=== PATIENT | female | born 1940 | race Asian ===

== ENCOUNTER 2016-12-05 04:39 | Inpatient (IN) | payer OTHER ==
[~2016-12-05] VITALS: Ht 157.5 cm; Wt 73.0 kg
[~2016-12-05 04:39] MED LIST: ASPI-664 PO; ATOR40TA68 PO; BRIM15DR2 BOTH EYES; CHOL100062 PO; HYD25 PO; LEVO500T72 PO; LISI-526 PO; METF500T4 PO; OCUVITE PO; SAXA5TAB2 PO; VITA1CAP38 PO
[2016-12-05 05:21] LABS: ADD SCAN DIFF NO
[2016-12-05] MEDS ORDERED: ENALAPRILAT 1.25 MG INJ IV ONE (05:30)
[2016-12-05] MEDS ORDERED: ASPIRIN 325 MG TAB PO ONE (05:30)
[2016-12-05 05:31] LABS: BASOPHILS % 0.7 % (0.0-2.0); EOSINOPHILS # 0.1 10^3/ul (0.0-0.5); EOSINOPHILS % 2.2 % (0.0-7.0); HEMATOCRIT 35.9 % (37.0-47.0); LYMPHOCYTES # 1.3 10^3/ul (0.8-2.9); LYMPHOCYTES % 22.1 % (15.0-51.0); MEAN CORPUSCULAR HEMOGLOBIN 31.3 pg (29.0-33.0); MEAN CORPUSCULAR HGB CONC 33.4 g/dl (32.0-37.0); MEAN CORPUSCULAR VOLUME 93.7 fl (82.0-101.0); MEAN PLATELET VOLUME 11.4 fl (7.4-10.4); MONOCYTE # 0.3 10^3/ul (0.3-0.9); MONOCYTES % 4.6 % (0.0-11.0); NEUTROPHIL # 4.1 10^3/ul (1.6-7.5); NEUTROPHILS % 69.7 % (39.0-77.0); PLATELET COUNT 240 10^3/UL (140-415); RED BLOOD COUNT 3.83 10^6/ul (4.20-5.40); RED CELL DISTRIBUTION WIDTH 13.8 % (11.5-14.5); WHITE BLOOD COUNT 5.9 10^3/ul (4.8-10.8)
[2016-12-05 05:37] LABS: ALBUMIN 4.2 g/dl (3.3-4.9)
[2016-12-05 05:38] LABS: POTASSIUM 3.3 mmol/L (3.5-5.1)
[2016-12-05 05:40] LABS: ALBUMIN/GLOBULIN RATIO 1.31; BILIRUBIN,INDIRECT 0.4 mg/dl (0-1.1); BILIRUBIN,TOTAL 0.4 mg/dl (0.2-1.3); CREATININE 1.13 mg/dl (0.44-1.00); TOTAL PROTEIN 7.4 g/dl (6.1-8.1)
[2016-12-05 05:41] LABS: CALCIUM 8.6 mg/dl (8.4-10.2)
[2016-12-05] MEDS ORDERED: ONDANSETRON 4 MG INJ IV ONE (05:42)
[2016-12-05] MEDS ORDERED: ONDANSETRON 4 MG INJ ONE (05:45)
[2016-12-05 05:53] LABS: TROPONIN-I 0.056 ng/ml (0.00-0.12)
[2016-12-05] MEDS ORDERED: ATOR20TA38 PO (05:55)
[2016-12-05] MEDS ORDERED: FLUT1BLS INHALATION (05:56)
[2016-12-05] MEDS ORDERED: ALBUTEROL 0.083% (NEB) 2.5 MG/3 ML AMP HHN STA (05:59)
[2016-12-05] MEDS ORDERED: IPRATROPIUM (NEB) 0.5 MG/2.5 ML AMP HHN ONE (06:00)
[2016-12-05] MEDS ORDERED: BRIM15DR2 BOTH EYES (06:00)
--- NOTE | 2016-12-05 06:00 | RADRPT ---
PROCEDURE: Chest. CLINICAL INDICATION: Chest pain. TECHNIQUE: Single frontal view of the chest was obtained. COMPARISON: 01/11/2015. FINDINGS: The cardiac silhouette is enlarged. The aortic arch is calcified. There is congestive failure. Th ere is no pleural effusion. There is no pneumothorax. IMPRESSION: Moderate cardiomegaly and congestive failure. Aortic atherosclerosis. .Cyril Rivera MD, Date Time Electronically viewed and signed by .Cyril Rivera MD, on 12/05/2016 06:00 .T/
[2016-12-05] MEDS ORDERED: TEM15CR5 TOP (06:02)
[2016-12-05] MEDS ORDERED: AMLO-147 PO (06:04)
[2016-12-05 06:07] VITALS: TEMP 98.6
[2016-12-05 06:15] LABS: Allen Test ACCEPTAB; Arterial Base Excess -4.5 mmol/L (-3.0-3); Arterial COHb 0.3 % (0.0-3.0); Arterial Fraction of Oxyhgb 98.9 % (93.0-99.0); Arterial HCO3 21.8 mmol/L (22.0-26.0); Arterial MetHb 0.3 % (0.0-1.5); Arterial Total Hemglobin 13.7 g/dl (12.0-18.0); Blood Gas IEPAP 15/5; Blood Gas PS 10; MODE MASK - BIPAP
[2016-12-05] MEDS ORDERED: FUROSEMIDE 40 MG INJ IV ONE (07:00)
[2016-12-05] MEDS ORDERED: NITROGLYCERIN (SL) 0.4 MG TAB SL ONE (07:00)
[2016-12-05] MEDS ORDERED: ACETAMINOPHEN 325 MG TAB PO PRN ×2 (08:00→10:30)
[2016-12-05] MEDS ORDERED: ONDANSETRON 4 MG INJ IV PRN ×2 (08:00→10:30)
[2016-12-05] MEDS ORDERED: POTASSIUM CHLORIDE (SR) 20 MEQ TAB PO STA (08:24)
--- NOTE | 2016-12-05 08:26 | ERA ---
ER Documentation Chief Complaint Date/Time DATE: 12/05/16 TIME: 08:15 Chief Complaint Shortness of breath with htn, hx-chf HPI 76-year-old male is brought in for increasing shortness of breath for the last 3 days getting much worse this morning. Denies chest pain. States that she feels very weak and like she cannot breathe. According to her EMR she does have a history of congestive heart failure although she and her daughter claim to be unaware of this. She has not had any cough or fevers recently ROS All systems reviewed and are negative except as per history of present illness. Medications Home Meds Active Scripts Levofloxacin* (Levaquin*) 500 Mg Tablet, 500 MG PO DAILY for 7 Days, TAB Prov:MODESTO PECK MD 01/12/15 Reported Medications Amlodipine Besylate* (Amlodipine Besylate*) 10 Mg Tablet, 10 MG PO DAILY, #30 TAB 12/05/16 Clobetasol Propionate* (Temovate*) 0.05%-15gm Cream..g., 1 APPLIC TOP BID, #1 TUB 12/05/16 Brimonidine Tartrate* (Alphagan P*) 0.1%-15 Ml Opht Drops, 1 DROP BOTH EYES BID , #1 EA INSTILL 1 DROP INTO BOTH EYES TWICE A DAY DIRECTED 12/05/16 Fluticasone/Vilanterol (Breo Ellipta 200-25 Mcg INH) 1 Each Blst.w.dev, 1 PUFF INHALATION DAILY, #1 INHALER 12/05/16 Atorvastatin Calcium* (Atorvastatin Calcium*) 20 Mg Tablet, 20 MG PO QHS, #30 TAB 12/05/16 Cholecalciferol* (Vitamin D3*) 1,000 Unit Tablet, 1000 UNIT PO BID, TAB 01/11/15 Beta Carotene (A) W-C & E/Min* (Ocuvite*) 1 Tab Tab, 1 TAB PO DAILY, TAB 05/06/14 Vitamin B Complex* (Vitamin B Complex*) 1 Cap Capsule, 1 CAP PO DAILY, CAP 05/06/14 Aspirin* (Aspirin* EC) 81 Mg Tablet.dr, 81 MG PO DAILY, TAB 05/06/14 Saxagliptin Hcl* (Onglyza*) 5 Mg Tablet, 5 MG PO DAILY, TAB 05/06/14 Lisinopril* (Zestril*) 40 Mg Tablet, 40 MG PO DAILY, TAB 05/06/14 Hydrochlorothiazide* (Hydrochlorothiazide*) 25 Mg Tab, 25 MG PO DAILY, TAB 05/06/14 Metformin Hcl* (Metformin Hcl*) 500 Mg Tablet, 1000 MG PO BID, TAB 05/06/14 Brimonidine Tartrate* (Alphagan P*) 0.1%-15 Ml Opht Drops, 1 DROP BOTH EYES BID , EA 05/06/14 Discontinued Reported Medications Atorvastatin* (Atorvastatin*) 40 Mg Tablet, 40 MG PO HS, TAB 05/06/14 Allergies Allergies: Coded Allergies: No Known Allergy (Unverified , 12/05/16) PMhx/Soc History of Surgery: Yes (HYSTELECTOMY) Anesthesia Reaction: No Hx Neurological Disorder: No Hx Respiratory Disorders: No Hx Cardiac Disorders: Yes (HTN) Hx Psychiatric Problems: No Hx Miscellaneous Medical Probl: No Hx Alcohol Use: No Hx Substance Use: No Hx Tobacco Use: No Smoking Status: Never smoker Physical Exam Vitals Vital Signs Date Time Temp Pulse Resp B/P Pulse Ox O2 Delivery O2 Flow Rate FiO2 12/05/16 07:50 72 20 143/64 100 BIPAP 12/05/16 06:22 80 100 60 12/05/16 06:07 98.6 108 14 155/85 92 Room Air 12/05/16 06:03 Non Rebreather 15.0 12/05/16 05:14 98.6 86 18 201/95 92 Room Air 12/05/16 04:47 98.1 60 20 219/101 91 Physical Exam Const: [] Mild distress, appears uncomfortable Head: Atraumatic Eyes: Normal Conjunctiva ENT: Normal External Ears, Nose and Mouth. Neck: Full range of motion..~ No meningismus. Resp: Bilateral decreased breath sounds with mild tachypnea Cardio: Regular rate and rhythm, no murmurs Abd: Soft, non tender, non distended. Normal bowel sounds Skin: No petechiae or rashes Back: No midline or flank tenderness Ext: No cyanosis, mild pedal edema bilaterally Neur: Awake and alert and oriented 3, no focal deficits Psych: Normal Mood and Affect Result Diagram: 12/05/16 0506 12/05/16 0506 Results 24 hrs Laboratory Tests Test 12/05/16 05:06 12/05/16 05:58 White Blood Count 5.910^3/ul Red Blood Count 3.8310^6/ul Hemoglobin 12.0g/dl Hematocrit 35.9% Mean Corpuscular Volume 93.7fl Mean Corpuscular Hemoglobin 31.3pg Mean Corpuscular Hemoglobin Concent 33.4g/dl Red Cell Distribution Width 13.8% Platelet Count 33838^3/UL Mean Platelet Volume 11.4fl Neutrophils % 69.7% Lymphocytes % 22.1% Monocytes % 4.6% Eosinophils % 2.2% Basophils % 0.7% Nucleated Red Blood Cells % 0.0/100WBC Neutrophils # 4.110^3/ul Lymphocytes # 1.310^3/ul Monocytes # 0.310^3/ul Eosinophils # 0.110^3/ul Basophils # 0.010^3/ul Nucleated Red Blood Cells # 0.010^3/ul Sodium Level 140mmol/L Potassium Level 3.3mmol/L Chloride Level 104mmol/L Carbon Dioxide Level 22mmol/L Anion Gap 17 Blood Urea Nitrogen 18mg/dl Creatinine 1.13mg/dl Glucose Level 222mg/dl Calcium Level 8.6mg/dl Total Bilirubin 0.4mg/dl Direct Bilirubin 0.00mg/dl Indirect Bilirubin 0.4mg/dl Aspartate Amino Transf (AST/SGOT) 23IU/L Alanine Aminotransferase (ALT/SGPT) 26IU/L Alkaline Phosphatase 79IU/L Troponin I 0.056ng/ml B-Type Natriuretic Peptide 6190PG/ML Total Protein 7.4g/dl Albumin 4.2g/dl Globulin 3.20g/dl Albumin/Globulin Ratio 1.31 Lipase 141U/L Blood Gas Specimen Source Blood arterial Arterial Blood Date Drawn 12/05/2016 6:00:43 AM Arterial Blood pH (Temp corrected) 7.309 Arterial Blood pCO2 (Temp correct) 44.3mmhg Arterial Blood pO2 (Temp corrected) 450.7mmHG Arterial Blood HCO3 21.8mmol/L Arterial Blood Base Excess -4.5mmol/L Arterial Blood Oxygen Saturation 99.5mmHG Alonso Test ACCEPTAB Arterial Blood Gas Puncture Site Left Radial Arterial Blood Carboxyhemoglobin 0.3% Arterial Blood Methemoglobin 0.3% Blood Gas A-a O2 Differential 218.0mmHg Oxyhemoglobin Percent 98.9% Total Hemoglobin 13.7g/dl Blood Gas Temperature 37.0C Blood Gas Respiration Rate 16.0 Blood Gas Actual Respiration Rate 34 Blood Gas Modality MASK - BIPAP FiO2 100.0% Blood Gas Pressure Support 10 Blood Gas IPAP/EPAP Ratio 15/5 Blood Gas Notified Whom UP Blood Gas Notified Time 12/05/2016 6:15:29 AM Current Medications Medications (Trade) Dose Ordered Sig/Alicia Route PRN Reason Start Time Stop Time Status Last Admin Dose Admin Aspirin (Aspirin) 325 mg ONCE ONCE PO 12/05/16 05:30 12/05/16 05:31 DC 12/05/16 05:20 Enalaprilat (Vasotec Iv) 1.25 mg ONCE ONCE IV 12/05/16 05:30 12/05/16 05:31 DC 12/05/16 05:20 Ondansetron HCl (Zofran Inj) 4 mg ONCE ONCE IV 12/05/16 05:42 12/05/16 05:50 DC 12/05/16 06:01 Ondansetron HCl (Zofran Inj) 4 mg STK-MED ONCE .ROUTE 12/05/16 05:45 12/05/16 05:46 DC Albuterol (Proventil 0.083% (Neb)) 5 mg ONCE STAT HHN 12/05/16 05:59 12/05/16 06:00 DC 12/05/16 06:25 Ipratropium [place] (Atrovent 0.02% (Neb)) 0.5 mg ONCE ONCE HHN 12/05/16 06:00 12/05/16 06:01 DC 12/05/16 06:25 Furosemide (Lasix) 40 mg ONCE ONCE IV 12/05/16 07:00 12/05/16 07:01 DC 12/05/16 06:44 Nitroglycerin (Nitroglycerin (Sl Tab) 0.4 Mg) 1 tab ONCE ONCE SL 12/05/16 07:00 12/05/16 07:01 DC 12/05/16 06:53 Ondansetron HCl (Zofran Inj) 4 mg ER BRIDGE PRN IV NAUSEA AND/OR VOMITING 12/05/16 08:00 12/06/16 07:59 Acetaminophen (Tylenol Tab) 650 mg ER BRIDGE PRN PO MILD PAIN/FEVER 12/05/16 08:00 12/06/16 07:59 Procedures/MDM Acute decompensated congestive heart failure likely with flash pulmonary edema. Patient decompensated in the emergency room compared to her initial presentation. She began saturating in the high 70s. Her mechatronics engineer she also began to throw multiple PVCs. I ordered BiPAP as well as an albuterol Atrovent breathing treatment. Chest x-ray returned with pulmonary edema and she also had an elevated BNP. She was initially given Vasotec which did help lower the blood pressure. At that point I gave him another nitroglycerin to help lower her blood pressure as well as return some fluid volume to the bloodstream. Is also given 40 mg of Lasix. She improved greatly while on BiPAP in conjunction with the medications. Blood pressure also remained stable after the medications. Spoke with Dr. Tate who will be admitting the patient to telemetry as I no longer feel that she needs intensive care. EKG interpretation #1: Normal sinus rhythm rate of 90, normal axis, T-wave flattening/inversions in anterolateral leads, normal intervals EKG interpretation #2: Normal sinus rhythm rate of 83, normal axis, QT prolongation of 491 QTC, T-wave inversions in anterolateral leads suspicious for ischemia. Single PVC business change manager interpretation: Initial normal sinus rhythm followed by sinus rhythm with multiple and frequent PVCs followed by normal sinus rhythm once again. Chest x-ray interpretation by myself: Diffuse pulmonary edema, no obvious infiltrates, no pneumothorax, no fractures Critical care time 46 minutes: This includes a treatment of hypertensive emergency, flash pulmonary edema with respiratory failure, use of noninvasive positive pressure ventilation, chart review, multiple visits the patient's bedside to reassess status and consider ET intubation, discussion with family and admitting doctor as well as patient. This does not include any billable procedure Departure Diagnosis: Primary Impression: CHF (congestive heart failure) Additional Impressions: Hyperglycemia Renal insufficiency Acute respiratory failure with hypoxia Condition: Jennifer MAJORISABELLE ROBERT December 05, 2016 08:26
[2016-12-05] MEDS ORDERED: BISACODYL (EC) 5 MG TAB PO PRN (10:30)
[2016-12-05] MEDS ORDERED: Discontinue Glyburide, Glipizide, and/or Glimepiride prior to starting Insulin XX ONE (10:30)
[2016-12-05] MEDS ORDERED: BISACODYL 10 MG SUPP PR PRN (10:30)
[2016-12-05] MEDS ORDERED: MAGNESIUM HYDROXIDE 30ML CUP PO PRN (10:30)
[2016-12-05] MEDS ORDERED: DOCUSATE SODIUM 100 MG CAP PO PRN (10:30)
[2016-12-05] MEDS ORDERED: morphine 2 MG INJ IV PRN (10:30)
[2016-12-05] MEDS ORDERED: ZOLPIDEM 5 MG TAB PO PRN (10:30)
[2016-12-05] MEDS: CLOBETASOL 0.05% 15 GM CR TOP SCH ×2 (10:30→21:31)
[2016-12-05] MEDS ORDERED: NACL 0.9% 3 ML SYG IV SCH (10:30)
[2016-12-05] MEDS ORDERED: HYPOGLYCEMIA PROTOCOL when Glucose is <70 mg/dL or symptomatic <90 mg/dL. XX ONE (10:30)
[2016-12-05] MEDS ORDERED: GLUCOSE GEL 15 GRAM TUBE PO PRN ×2 (11:00)
[2016-12-05] MEDS ORDERED: GLUCOSE GEL 15 GRAM TUBE BUCCAL PRN (11:00)
[2016-12-05] MEDS ORDERED: DEXTROSE 50% 50 ML SYRINGE IV PRN ×2 (11:00)
[2016-12-05] MEDS ORDERED: GLUCAGON 1 MG INJ IM PRN (11:00)
[2016-12-05] MEDS: ASPIRIN (EC) 81 MG TAB PO SCH (11:28)
[2016-12-05] MEDS: BRIMONIDINE 0.1% 5 ML OPH BOTH EYES SCH ×2 (11:28→20:13)
[2016-12-05] MEDS: CHOLECALCIFEROL 1,000 UNIT TAB PO SCH ×2 (11:28→23:55)
[2016-12-05] MEDS: BETA CAROTENE/VIT C/E/MIN TAB PO SCH (11:28)
[2016-12-05] MEDS: AMLODIPINE 10 MG TAB PO SCH (11:29)
[2016-12-05] MEDS: LISINOPRIL 20 MG TAB PO SCH (11:29)
[2016-12-05] MEDS: LINAGLIPTIN 5 MG TABLET PO SCH (11:29)
[2016-12-05] MEDS ORDERED: [UNRECOGNIZED DRUG - MIXTURE] XX SCH (11:30)
[2016-12-05] MEDS: INSULIN ASPART [NOVOLOG] 3 ML PEN SC SCH ×3 (12:00→20:23)
--- NOTE | 2016-12-05 12:06 | HP ---
DATE OF ADMISSION: 12/05/2016 CHIEF COMPLAINT: Shortness of breath. REASON FOR ADMISSION: Acute congestive heart failure exacerbation, hypertensive emergency. HISTORY OF PRESENT ILLNESS: This is a 76-year-old female who has a past medical history of hyperten maribel, diabetes mellitus, osteoporosis, history of a previous admission in January 2015. At that time, she was evaluated and had a workup done. As per the patient, she presented to the [facility] emergency room. She was brought in by her daughter with a complaint of shortness of irene th. She was complaining of mild chest discomfort associated with shortness of breath. In the emerg ency room, her chest x-ray shows a cardiomegaly with a mild central vascular congestion. She had ao rtic atherosclerosis, received Lasix 40 mg IV x1. She also had a hypertensive emergency with a syst olic blood pressure of 208/91. In the emergency room, she received multiple antihypertensives and g etting admitted to the telemetry floor for further workup of CHF and also for her blood pressure con trol. At the time of my evaluation, the patient is off BiPAP. She required a BiPAP overnight, currently o ff saturating 94 to 93% on 2 to 3 liters nasal cannula. She is still short of breath, complaining o f nausea associated with shortness of breath but denies any chest pain, headache, dizziness, blurry vision, constipation, diarrhea, dysuria, increased urinary frequency. REVIEW OF SYSTEMS: Positive for shortness of breath, chest pain has been required a BiPAP overnight in the emergency room for respiratory failure. Other review of systems has been obtained and is ne gative except what is mentioned in the history of present illness. PAST MEDICAL HISTORY: Notable for hypertension, hyperlipidemia, osteoporosis, possible diastolic he art failure. Patient had a previous recent echocardiogram done. LABORATORY DATA/DIAGNOSTIC IMAGING: Her EKG in the emergency room shows a normal sinus rhythm. The chest x-ray shows pulmonary congestion. The patient improved with BiPAP in the emergency room, she had elevated BNP of more than 10,000 and currently she is hemodynamically stable to get admitted for telemetry floor. PAST SURGICAL HISTORY: History of hysterectomy. SOCIAL HISTORY: The patient is a former smoker, currently no smoking, alcohol or recreational drug use. FAMILY HISTORY: Positive for diabetes mellitus in the family, otherwise denies any history of coron neyda artery disease, chronic kidney disease or stroke in the family. PHYSICAL EXAMINATION: VITAL SIGNS: The patient had a systolic blood pressure of 219/101 in the emergency room, currently, after getting IV Lasix diuresis and antihypertensives her current vital signs include temperature 98 .6, heart rate 77, respiration 20, blood pressure 152/77, saturation is 100% on a 4 liter nasal re[place]. GENERAL: Awake, alert, moderate distress. HEENT: Normal. Oropharynx clear. NECK: Jugular venous distention up to the mid neck. Neck supple, no lymphadenopathy. LUNGS: Bibasilar crackles present up to the mid lung zones with expiratory wheezing present. Diffu se throughout all lung garcia. HEART: S1, S2, tachycardia, no murmur. ABDOMEN: Soft, morbidly obese, nontender, nondistended. Bowel sounds are present. EXTREMITIES: 1 to 2+ pitting edema, no clubbing, no cyanosis. NEUROLOGICAL: The patient is alert, awake, oriented to time, place and person. No focal deficits. Reflexes are intact. Motor strength 5/5 in all extremities. SKIN: No rash. PSYCHIATRIC: Appropriate affect and mood. LABORATORY DATA/DIAGNOSTIC IMAGING: WBC 5.9, hemoglobin 12, platelet count is 240. Sodium 140, pota ssium 3.3, chloride 104, bicarbonate 22, BUN 18, creatinine 1.1, glucose 222, calcium 8.6. BNP 6190 , troponin x1 negative. ABG shows pH 7.30, pCO2 44, PO2 450, bicarbonate 21. Chest x-ray shows cardiomegaly, pulmonary vascular congestion with aortic atherosclerosis. IMPRESSION: This is a 76-year-old female with: 1. Acute hypoxic respiratory failure requiring a BiPAP in the emergency room secondary to acute con gestive heart failure exacerbation. 2. Acute congestive heart failure exacerbation, acute on chronic, systolic and diastolic. 3. Acute kidney injury on possible chronic kidney disease secondary to cardiorenal syndrome. 4. History of possible chronic kidney disease, unknown stage, secondary to diabetic nephropathy. 5. History of hypertension. 6. History of diabetes mellitus. 7. History of osteoporosis. 8. Hypokalemia, status post replacement in the emergency room. PLAN 1. Admission to the telemetry floor. I will continue the BiPAP as needed for her acute respiratory failure. Lasix 40 mg IV b.i.d. for diuresis. 2. I will start the patient on her home medications ____ Zestril and amlodipine for better blood pressure control. We will use IV hydralazine p.r.n. 3. The patient will get echocardiogram to be read by Dr. Chinchilla to assess her ejection fractions. S he is currently seen in the emergency room, KCl has been replaced. The patient required BiPAP overn ight, but currently she is off the BiPAP, so we will consider her for telemetry admission. She is a complicated patient while being seen in the emergency room. Total time spent in this patient's evaluation making assessment and plan, coming up with communicati on with the emergency room nurse and also with the nursing staff on the floor took more than 90 kaiden marvin. 4. Pepcid for GI prophylaxis and heparin for DVT prophylaxis. Dictated By: RICK ESCAMILLA MD, KP/GRACE Conf#: [id number] DID#: [id number]
[2016-12-05 16:51] VITALS: PULSE 83
[2016-12-05 17:07] VITALS: Ht 157.5 cm; Wt 73.0 kg
--- NOTE | 2016-12-05 17:24 | RADRPT ---
Echocardiogram Report Patient Name: GIANA ROBINS Gender: Female Date: 1940 Study Date: 05-Dec-2016 Reinsurance Analyst: GILL Location: E/R Ref. Physician: RICK ESCAMILLA Quality: Adequate Procedures: Transthoracic echocardiogram with complete 2D, M-Mode, and doppler examination. Indications: Congestive Heart Failure. 2D/M Mode Doppler Measurement Value Normal Ranges Measurement Value Normal Ranges LVIDd 2D 5.7 3.5 - 5.6 cm AV Peak John 1.5 m/sec LVIDs 2D 4.1 2.1 - 4.1 cm AV Peak PG 8.4 mmHg LVPWd 2D 0.8 0.6 - 1.1 cm LVOT Peak John 0.8 m/sec IVSd 2D 0.8 0.6 - 1.1 cm LVOT Peak PG 2.5 mmHg AoR Diam 2D 2.7 2.0 - 3.7 cm MV E Peak John 1.3 m/sec EDV 2D 156.9 cm3 MV A Peak John 0.5 m/sec ESV 2D 70.5 cm3 MV E/A 2.5 LA Dimen 2D 4.0 2.3 - 4.0 cm MV Decel Time 130 msec MV Decel [place] 10 MV E/A 2.5 TR Peak John 2.9 m/sec TR Peak PG 34.4 mmHg RVSP 37.0 mmHg Findings Left Ventricle: Normal left ventricular wall thickness. Mild enlargement of left ventricle cavity. Moderate left ventricular systolic dysfunction. Ejection fraction is visually estimated at 3540 %. Tissue Doppler/Mitral Doppler indices are consistent with pseudonormalization with mildly elevated left atrial pressure (Stage II diastolic dysfunction). Right Ventricle: Normal right ventricular size. Normal right ventricular systolic function. Left Atrium: Upper limit of normal left atrial size. Right Atrium: The right atrium is normal in size. Mitral Valve: Mitral valve leaflets appear mildly thickened. Mild mitral annular calcification. Mild mitral valve regurgitation. Aortic Valve: Normal appearance of the aortic valve. No significant aortic stenosis or insufficiency. Tricuspid Valve: Normal appearance of the tricuspid valve. Estimated peak PA systolic pressure 37 mmHg. There is mild tricuspid regurgitation. Pulmonic Valve: Pulmonic valve not well visualized. There is trace pulmonic regurgitation. Pericardium: Normal pericardium with no significant pericardial effusion. Aorta: Normal aortic root. IVC: Normal size and normal respiratory collapse consistent with normal right atrial pressure. Conclusions 1.Normal left ventricular wall thickness. Mild enlargement of left ventricle cavity. Moderate left ventricular systolic dysfunction. Ejection fraction is visually estimated at 35-40 %. Tissue Doppler/Mitral Doppler indices are consistent with pseudonormalization with mildly elevated left atrial pressure (Stage II diastolic dysfunction). 2.Normal right ventricular size. Normal right ventricular systolic function. 3.Upper limit of normal left atrial size. 4.The right atrium is normal in size. 5.Mild mitral valve regurgitation. 6.Estimated peak PA systolic pressure 37 mmHg. There is mild tricuspid regurgitation. 7.No significant aortic stenosis or insufficiency. 8.Normal pericardium with no significant pericardial effusion. Electronically Signed By: Omega Chinchilla 05-Dec-2016 17:23:35 -0700 Patient Name: GIANA ROBINS Study Date: 05-Dec-2016 [id number]
[2016-12-05] MEDS: FUROSEMIDE 20 MG INJ IV SCH (18:07)
[2016-12-05 18:24] VITALS: PULSE 84
[2016-12-05] MEDS: POTASSIUM CHLORIDE (SR) 20 MEQ TAB PO SCH (20:14)
[2016-12-05 20:15] VITALS: PULSE 87
[2016-12-05] MEDS: HYDROCODONE/APAP (5/325) TAB PO PRN (20:15)
[2016-12-05] MEDS: FAMOTIDINE 20 MG INJ IV SCH (20:16)
[2016-12-05] MEDS: HEPARIN 5,000 UNIT/0.5 ML VIAL SC SCH (20:22)
[2016-12-05 20:30] VITALS: BP 183/81; PULSE 74; RESP 20
[2016-12-05] MEDS ORDERED: ATORVASTATIN 20 MG TAB PO SCH (21:00)
[2016-12-05 23:40] VITALS: BP 124/58; RESP 20
[2016-12-05] MEDS: SALMETEROL/FLUTICASONE 250/50 INHA INH SCH (23:55)
[2016-12-06] VITALS (38 sets, daily range): BP systolic 123–179; BP diastolic 64–104; PULSE 53–90; RESP 16–28
[2016-12-06] MEDS: FUROSEMIDE 20 MG INJ IV SCH ×2 (06:24→18:17)
[2016-12-06 07:18] LABS: ADD SCAN DIFF NO
[2016-12-06 07:28] LABS: BASOPHILS % 0.7 % (0.0-2.0); EOSINOPHILS # 0.1 10^3/ul (0.0-0.5); EOSINOPHILS % 2.6 % (0.0-7.0); HEMOGLOBIN 12.8 g/dl (12.0-16.0); LYMPHOCYTES # 1.2 10^3/ul (0.8-2.9); LYMPHOCYTES % 22.8 % (15.0-51.0); MEAN CORPUSCULAR HEMOGLOBIN 30.5 pg (29.0-33.0); MEAN CORPUSCULAR VOLUME 95.2 fl (82.0-101.0); MEAN PLATELET VOLUME 11.9 fl (7.4-10.4); MONOCYTE # 0.2 10^3/ul (0.3-0.9); MONOCYTES % 4.2 % (0.0-11.0); NEUTROPHIL # 3.8 10^3/ul (1.6-7.5); NEUTROPHILS % 69.3 % (39.0-77.0); PLATELET COUNT 274 10^3/UL (140-415); RED CELL DISTRIBUTION WIDTH 13.7 % (11.5-14.5); WHITE BLOOD COUNT 5.4 10^3/ul (4.8-10.8)
[2016-12-06 07:50] LABS: INR 0.97; PROTIME 12.9 Sec (12.2-14.2)
[2016-12-06 07:51] LABS: PARTIAL THROMBOPLASTIN TIME 33.7 Sec (25.0-35.0)
[2016-12-06 08:08] LABS: ALBUMIN 4.2 g/dl (3.3-4.9); ALBUMIN/GLOBULIN RATIO 1.23; BILIRUBIN,INDIRECT 0.8 mg/dl (0-1.1); BILIRUBIN,TOTAL 0.8 mg/dl (0.2-1.3); CALCIUM 9.1 mg/dl (8.4-10.2); CREATININE 1.53 mg/dl (0.44-1.00); MAGNESIUM 1.8 mg/dl (1.7-2.5); PHOSPHORUS 4.8 mg/dl (2.5-4.9); TOTAL PROTEIN 7.6 g/dl (6.1-8.1)
[2016-12-06] MEDS: INSULIN ASPART [NOVOLOG] 3 ML PEN SC SCH ×4 (08:23→21:00)
[2016-12-06] MEDS: CLOBETASOL 0.05% 15 GM CR TOP SCH ×2 (08:24→21:00)
[2016-12-06] MEDS: BETA CAROTENE/VIT C/E/MIN TAB PO SCH (08:24)
[2016-12-06] MEDS: SALMETEROL/FLUTICASONE 250/50 INHA INH SCH ×2 (08:24→21:16)
[2016-12-06] MEDS: POTASSIUM CHLORIDE (SR) 20 MEQ TAB PO SCH ×2 (08:25→21:00)
[2016-12-06] MEDS: LISINOPRIL 20 MG TAB PO SCH (08:25)
[2016-12-06] MEDS: AMLODIPINE 10 MG TAB PO SCH (08:25)
[2016-12-06] MEDS: LINAGLIPTIN 5 MG TABLET PO SCH (08:25)
[2016-12-06] MEDS: ASPIRIN (EC) 81 MG TAB PO SCH (08:26)
[2016-12-06] MEDS: HEPARIN 5,000 UNIT/0.5 ML VIAL SC SCH (08:31)
[2016-12-06] MEDS: CHOLECALCIFEROL 1,000 UNIT TAB PO SCH ×2 (08:31→21:00)
[2016-12-06] MEDS: BRIMONIDINE 0.1% 5 ML OPH BOTH EYES SCH ×2 (09:00→21:00)
[2016-12-06] MEDS ORDERED: LORAZEPAM 2 MG INJ ONE (09:40)
--- NOTE | 2016-12-06 10:14 | RADRPT ---
PROCEDURE: CT Head without. CLINICAL INDICATION: Code stroke. TECHNIQUE: The study was performed utilizing a multi-slice, multidetector CT scanner. Direct spira l 1 mm axial sections were obtained through the head without the use of intravenous contrast materia l. 1 or more of the following dose reduction techniques were utilized: Automated exposure control, adjustment of the mA and/or kV according to patient's size, iterative reconstruction technique. Co jovi and sagittal reformations were obtained. The images were reviewed on a PACS workstation. RADIATION DOSE: CTDIvol: 44.5 mGyDLP: 720.2 mGy-cm COMPARISON: 05/06/2014 FINDINGS: There is no intracranial hemorrhage, extra-axial fluid collection, mass lesion, midline shift or hyd rocephalus. There is mild prominence of the cerebral sulci, lateral and third ventricles. There is mild to moderate periventricular and subcortical white matter hypodensity. There is mild arteriosc lerotic calcification of the parasellar internal carotid arteries. The davis-white matter differenti ation is preserved. The basal cisterns are patent. The midline structures are intact. The orbits, calvarium and extracranial soft tissues are normal in appearance. The visualized paranasal sinuses, mastoid air cells and middle ear cavities are normally aerated. IMPRESSION: 1. No acute intracranial abnormality. No intracranial hemorrhage, extra-axial fluid collection, ma ss lesion or hydrocephalous. 2. Mild peripheral and central cerebral volume loss. 3. Mild to moderate periventricular and subcortical white matter hypodensity, likely related to chr onic microangiopathic changes. 4. No CT evidence of infarct at this time. If clinical concern for infarct, MRI is recommended for further evaluation. The above findings were discussed with Patient's Nurse Lorena by telephone on 12/06/2016 10:11:44 AM. RPTAT: DD .Jorge Luis Hooper MD, Date Time Electronically viewed and signed by .Jorge Luis Hooper MD, MD on 12/06/2016 10:14 .S/
[2016-12-06] MEDS ORDERED: LORAZEPAM 2 MG INJ IV ONE (10:48)
--- NOTE | 2016-12-06 10:51 | QN ---
Documentation Comment HEAD WOOD GRINDER note Rapid response was activated on patient after she was noted to have slurred speech while speaking on the telephone with her daughter. I responded to a rapid response, which was converted to a CODE stroke. Patient was originally admitted for high blood pressure and congestive heart failure exacerbation. PHysical exam: Patient was found to be altered with slurred speech and confusion with left-sided hemiparesis. Patient was said to be previously normal coherent and at the time she was unable to answer questions rationality or even oriented to self. A quick evaluation reveals a blood pressure of 176/73 temperature 98.7, pulse 104. EKG done at bedside revealed a sinus tachycardia with multiple PVCs. As per protocol transport was activated to the bedside and the patient is to be transferred to radiology for a stat head CT from that she will be transferred to the intensive care unit. I gave 1 dose of intravenous Ativan because patient was very confused and has combative this will calm her down and also put her in a situation that would be appropriate for the CT scan. Of nurses at patient's daughter arrived while patient was being wheeled out CT and I updated her on patient's condition and interventions that had been put in place. The CT scan radiology reported that CT was negative without contraindications to TPA. I also gave sign out to Dr. Flor the teleneurologist and she called me back after she reviewed the CT and the patient, telling me that she recommended TPA for the patient. I ordered the TPA and patient to be given TPA in the intensive care unit. At this point I signed over the patient to her primary care doctor Dr. Jose Tate for further orders; please review Dr. Leslie Tate's notes. For further information please review nursing nursing notes and the patient's chart. Overall critical care time was about 45 minutes AFSHIN DOBSON December 06, 2016 10:51
--- NOTE | 2016-12-06 11:23 | STROKE ---
Date/Time of Note Date/Time of Note DATE: 12/06/16 TIME: 11:18 Patient Information General Patient location: emergency Arrival Date Age 76 Gender female Weight 73 kg POC Glucose Glucose Result Bedside Glucose - 72 Hours Test 12/05/16 12:55 12/05/16 17:38 12/05/16 20:17 12/06/16 07:57 Bedside Glucose 138mg/dL (70-220) 118mg/dL (70-220) 140mg/dL (70-220) 141mg/dL (70-220) Test 12/06/16 09:28 Bedside Glucose 214mg/dL (70-220) Vital Signs Vital Signs Vital Signs Date Time Temp Pulse Resp B/P Pulse Ox O2 Delivery O2 Flow Rate FiO2 12/06/16 09:41 57 12/06/16 08:00 Nasal Cannula 3.0 12/06/16 07:40 97.7 20 158/74 99 12/05/16 06:22 60 Patient History Current Medications Allergies: Coded Allergies: Penicillins (Unverified Allergy, Unknown, 12/05/16) Labs Hematology Labs Hematology Test 12/06/16 06:15 White Blood Count 5.410^3/ul (4.8-10.8) Red Blood Count 4.2010^6/ul (4.20-5.40) Hemoglobin 12.8g/dl (12.0-16.0) Hematocrit 40.0% (37.0-47.0) Mean Corpuscular Volume 95.2fl (82.0-101.0) Mean Corpuscular Hemoglobin 30.5pg (29.0-33.0) Mean Corpuscular Hemoglobin Concent 32.0g/dl (32.0-37.0) Red Cell Distribution Width 13.7% (11.5-14.5) Platelet Count 82384^3/UL (140-415) Mean Platelet Volume 11.9fl (7.4-10.4) Neutrophils % 69.3% (39.0-77.0) Lymphocytes % 22.8% (15.0-51.0) Monocytes % 4.2% (0.0-11.0) Eosinophils % 2.6% (0.0-7.0) Basophils % 0.7% (0.0-2.0) Nucleated Red Blood Cells % 0.0/100WBC (0.0-0.0) Neutrophils # 3.810^3/ul (1.6-7.5) Lymphocytes # 1.210^3/ul (0.8-2.9) Monocytes # 0.210^3/ul (0.3-0.9) Eosinophils # 0.110^3/ul (0.0-0.5) Basophils # 0.010^3/ul (0.0-0.1) Nucleated Red Blood Cells # 0.010^3/ul (0.0-0.0) Chemistry Labs Chemistry Test 12/05/16 05:06 12/06/16 06:15 12/06/16 09:28 Troponin I 0.056ng/ml (0.00-0.12) B-Type Natriuretic Peptide 6190PG/ML (0-125) Lipase 141U/L (23-300) Sodium Level 139mmol/L (135-144) Potassium Level 4.0mmol/L (3.5-5.1) Chloride Level 100mmol/L (97-110) Carbon Dioxide Level 31mmol/L (21-31) Anion Gap 12 (8-16) Blood Urea Nitrogen 26mg/dl (7-20) Creatinine 1.53mg/dl (0.44-1.00) Glucose Level 127mg/dl (70-220) Calcium Level 9.1mg/dl (8.4-10.2) Phosphorus Level 4.8mg/dl (2.5-4.9) Magnesium Level 1.8mg/dl (1.7-2.5) Total Bilirubin 0.8mg/dl (0.2-1.3) Direct Bilirubin 0.00mg/dl (0.00-0.20) Indirect Bilirubin 0.8mg/dl (0-1.1) Aspartate Amino Transf (AST/SGOT) 23IU/L (15-46) Alanine Aminotransferase (ALT/SGPT) 30IU/L (13-69) Alkaline Phosphatase 83IU/L (42-121) Total Protein 7.6g/dl (6.1-8.1) Albumin 4.2g/dl (3.3-4.9) Globulin 3.40g/dl (1.3-3.2) Albumin/Globulin Ratio 1.23 Bedside Glucose 214mg/dL (70-220) Coagulation Labs: Coagulation Test 12/06/16 06:45 Prothrombin Time 12.9Sec (12.2-14.2) Prothrombin Time Ratio 1.0 INR International Normalized Ratio 0.97 Activated Partial Thromboplast Time 33.7Sec (25.0-35.0) History & Physical Patient History Notes Pt Hx Reviewed History of Present Illness 76yo F hospitalized for CHF exacerbation now presents with acute onset slurred speech and left arm weakness. Patient was last seen normal at 9:15am Review of Systems Constitutional: no symptoms reported EENTM: no symptoms reported Respiratory: see HPI Cardiovascular: see HPI Gastrointestinal: no symptoms reported Genitourinary: no symptoms reported Musculoskeletal: no symptoms reported Skin: no symptoms reported Psychiatric/Neurological: see HPI All Other Systems: Reviewed and Negative NIH Stroke Scale NIH Stroke Scale 1A - Level of Conciousness: 0 - Alert keenly [id number] LOC Questions: 0 - Answers both [id number] - LOC Commands: 0 - Performs both tasks2 - Best Gaze: 0 - Normal3 - Visual: 0 - No visual loss4 - Facial Palsy: 2 - Complete [id number] - Motor Arm - Left: 4 - No [id number] - Motor Arm - Right: 0 - No [id number] - Motor Leg - Left: 1 - [id number] - Motor Leg - Right: 0 - No drift7 - Limb Ataxia: 0 - Absent8 - Sensory: 2 - Severe to total loss9 - Best Language: 0 - No aphasia or normalDysarthria: 0 - [id number] - Extinction and inattentio: 2 - Profound extinctionTotal Score: 11 Date/Time Recorded DATE: 12/06/16 TIME: 11:18 Submitted By Alfred Wallace t-PA Imaging Review Imaging Reviewed: Yes Date/Time Imaging Reviewed DATE: 12/06/16 TIME: 11:18 Imaging Findings No acute changes t-PA Administration Recommendation: Yes Weight 73 kg t-PA Recommendation Date/Time 12/06/16 11:15am Recommedation submitted by Alfred Wallace Recommendations Impression Diagnosis right MCA ischemic stroke Recommendation 76yo F presents with acute onset left arm weakness and slurred speech. Neurological exam is notable for left facial droop, left arm flaccid paralysis, left sided numbness, and left sided hemineglect. I believe the patient is having an acute ischemic stroke of the right middle cerebral artery. I reviewed the risks and benefits of IV TPA in detail with the patient and her family and they are agreeable to my recommendation for IV TPA. I recommend stat CTA of the head and neck to determine if the patient is a neurointerventional candidate. I recommend further workup include MRI Brain without gadolinium, and transthoracic echocardiogram. I recommend post-TPA orders be followed. I requested to be called after CTA was completed to review results. As I was not called back, I later called at 14:55 and reviewed the images and report. As noted in the report, there is no occlusion within the M1 segment, but evidence of occlusion within M2 after the bifurcation. Thus patient is not a neurointerventional candidate. Post t-PA Order recommendation: Document q15 min vitals Document q15 min neuro checks Document q15 min bleeding checks Refer to t-PA Order Sets Diagnostic Labs: Lipid Proile Hgb A1C CMP CBC w/Diff Coags Urinaysis Therapy: Physical Therapy Speech Therapy Occupational Therapy Misc. Recommendations: Bedside Swallow Evaluation Pnumatic Compression Devices Avoid Foss Catheter Stroke Education Smoking Education ALFRED WALLACE December 06, 2016 11:23
[2016-12-06] MEDS ORDERED: ALTEPLASE (tPA) 1 MG/ML BOLUS SYG IV* ONE (11:30)
[2016-12-06] MEDS ORDERED: ACETAMINOPHEN 325 MG TAB PO PRN (11:30)
[2016-12-06] MEDS ORDERED: ALTEPLASE 100 MG INJ IV* ONE (11:30)
[2016-12-06] MEDS ORDERED: SOD CHLORIDE 0.9% 50 ML IV ONE (11:30)
[2016-12-06] MEDS: DOCUSATE SODIUM 100 MG CAP PO SCH ×2 (11:30→21:00)
--- NOTE | 2016-12-06 11:44 | CONS ---
Date/Time of Note Date/Time of Note DATE: 12/06/16 TIME: 11:33 Assessment/Plan Assessment/Plan Chief Complaint/Hosp Course 76 year old female with history HTN, HLD, DM, CKD admitted with CHF exacerbation (EF 35-40%) and hypertensive emergency developed sudden onset left sided weakness suggestive of Right MCA stroke planned for IV tPA administration. -post tPA protocol, maintain blood pressure <180/105 continue vital signs per protocol, frequent neuro checks per protocol maintain euglycemia, afebrile -hold antiplatelets, AC up to 24 hours post IV tPA -repeat Head CT 24 hours post IV tPA -repeat stat for any decline in neurologic status -CTA Head Neck pending, ordered as stat after tPA administered to evaluate for MCA occlusion as she is still within the window for intervention -MRI Brain w/o contrast diffusion/FLAIR imaging -NPO until speech/swallow evaluation -tele monitoring for afib, suspect likely cardioembolic source -PT/OT can be assessed tomorrow -DVT ppx- SCD will continue to follow, please notify me for any decline in her status Problems: Consultation Date/Type/Reason Admit Date/Time December 05, 2016 at 10:24 Date of Consultation: December 06, 2016 Type of Consultation: Neurology Reason for Consultation acute Right MCA CVA Referring Provider: RICK ESCAMILLA MD Hx of Present Illness 76 year old female with history of HTN, DM, osteoperosis admitted with CHF exacerbation EF:40% with hypertensive emergency, CKD placed on BIPAP overnight respiratory failure and diuresed overnight. This morning 9:15 am she was noted to have sudden onset left sided motor weakness, dysarthria with facial droop, left arm paresis and left leg weakness. Tele neurology consulted, initial Head CT showed no acute areas of ischemia no contraindication for IV tPA. She was administered IV tPA per recommendation by tele neurologist. Currently awaiting IV tPA bolus being reviewed by pharmacy. She has no known history of stroke per family, no history of documented afib, admitted to ICU for further management and closer monitoring. left sided weakness slurred speech Social History Smoking Status: Never smoker Exam/Review of Systems Vital Signs Vitals Vital Signs Date Time Temp Pulse Resp B/P Pulse Ox O2 Delivery O2 Flow Rate FiO2 12/06/16 09:41 57 12/06/16 08:00 Nasal Cannula 3.0 12/06/16 07:40 97.7 20 158/74 99 12/05/16 06:22 60 Intake and Output 12/05/16 12/05/16 12/06/16 15:00 23:00 07:00 Intake Total 240 ml 200 ml Output Total 200 ml 850 ml Balance 40 ml -650 ml Exam awake and alert arousable, oriented to her name, current location in moderate distress moving around in bed CN: MARIALUISA, blinks to threat, able to gaze left upon command left facial droop Motor: left arm is flaccid, left leg minimal withdrawal in plane of the bed right arm and leg intact strength Sensory decreased to left arm and leg patient is aware of her left arm attempts to pick it up with her right arm when prompted Results Result Diagram: 12/06/1661412/06/16614 Results 24 hrs Laboratory Tests Test 12/05/16 12:55 12/05/16 17:38 12/05/16 20:17 12/06/16 06:15 Bedside Glucose 138 118 140 White Blood Count 5.4 Red Blood Count 4.20 Hemoglobin 12.8 Hematocrit 40.0 Mean Corpuscular Volume 95.2 Mean Corpuscular Hemoglobin 30.5 Mean Corpuscular Hemoglobin Concent 32.0 Red Cell Distribution Width 13.7 Platelet Count 274 Mean Platelet Volume 11.9 H Neutrophils % 69.3 Lymphocytes % 22.8 Monocytes % 4.2 Eosinophils % 2.6 Basophils % 0.7 Nucleated Red Blood Cells % 0.0 Neutrophils # 3.8 Lymphocytes # 1.2 Monocytes # 0.2 L Eosinophils # 0.1 Basophils # 0.0 Nucleated Red Blood Cells # 0.0 Sodium Level 139 Potassium Level 4.0 Chloride Level 100 Carbon Dioxide Level 31 Anion Gap 12 Blood Urea Nitrogen 26 H Creatinine 1.53 H Glucose Level 127 # Calcium Level 9.1 Phosphorus Level 4.8 Magnesium Level 1.8 Total Bilirubin 0.8 Direct Bilirubin 0.00 Indirect Bilirubin 0.8 Aspartate Amino Transf (AST/SGOT) 23 Alanine Aminotransferase (ALT/SGPT) 30 Alkaline Phosphatase 83 Total Protein 7.6 Albumin 4.2 Globulin 3.40 H Albumin/Globulin Ratio 1.23 Test 12/06/16 06:45 12/06/16 07:57 12/06/16 09:28 Prothrombin Time 12.9 Prothrombin Time Ratio 1.0 INR International Normalized Ratio 0.97 Activated Partial Thromboplast Time 33.7 Bedside Glucose 141 214 Medications Medications Current Medications Amlodipine Besylate (Norvasc) 10 mg DAILY PO Last administered on 12/06/16 08: 25; Admin Dose 10 MG; Start 12/05/16 at 10:30 Aspirin (Halfprin) 81 mg DAILY PO Last administered on 12/06/16 08:26; Admin Dose 81 MG; Start 12/05/16 at 10:30 Atorvastatin Calcium (Lipitor) 20 mg QHS PO Last administered on 12/05/16 20:14 ; Admin Dose 20 MG; Start 12/05/16 at 21:00 Beta Carotene (Ocuvite) 1 tab DAILY PO Last administered on 12/06/16 08:24; Admin Dose 1 TAB; Start 12/05/16 at 10:30 Brimonidine Tartrate (Alphagan P 0.1%) 1 drop BID BOTH EYES Last administered on 12/05/16 20:13; Admin Dose 1 DROP; Start 12/05/16 at 10:30 Cholecalciferol (Vitamin D) 1,000 unit BID PO Last administered on 12/06/16 08: 31; Admin Dose 1,000 UNIT; Start 12/05/16 at 10:30 Clobetasol Propionate (Temovate 0.05% Cr) 1 applic BID TOP Last administered on 12/06/16 08:24; Admin Dose 1 APPLIC; Start 12/05/16 at 10:30 Linagliptin (Tradjenta) 5 mg DAILY PO Last administered on 12/06/16 08:25; Admin Dose 5 MG; Start 12/05/16 at 11:30 Salmeterol Xinafoate/ Fluticasone (Advair 250/50 Diskus) 1 inh BID INH Last administered on 12/06/16 08:24; Admin Dose 1 INH; Start 12/05/16 at 21:00 Potassium Chloride (Klor-Con 20) 20 meq BID PO Last administered on 12/06/16 08 :25; Admin Dose 20 MEQ; Start 12/05/16 at 21:00 Ondansetron HCl (Zofran Inj) 4 mg Q4H PRN IV NAUSEA AND/OR VOMITING; Start 12/05 at 10:30 Acetaminophen (Tylenol Tab) 650 mg Q6H PRN PO PAIN LEVEL 1-3; Start 12/05/16 at 10:30 Acetaminophen/ Hydrocodone Bitart ([place] (5/325)) 1 tab Q6H PRN PO MODERATE PAIN LEVEL 4-6 Last administered on 12/05/16 20:15; Admin Dose 1 TAB; Start 12/05 at 10:30 Morphine Sulfate (morphine) 1 mg Q4H PRN IV SEVERE PAIN LEVEL 7-10; Start at 10:30 Docusate Sodium (Colace) 100 mg Q12H PRN PO CONSTIPATION; Start 12/05/16 at 10: 30 Magnesium Hydroxide (Milk Of Mag) 30 ml DAILY PRN PO CONSTIPATION; Start at 10:30 Bisacodyl (Dulcolax) 5 mg DAILY PRN PO CONSTIPATION; Start 12/05/16 at 10:30 Bisacodyl (Dulcolax Supp) 10 mg DAILY PRN VT CONSTIPATION; Start 12/05/16 at 10: 30 Zolpidem Tartrate (Ambien) 5 mg QHS PRN PO SLEEP; Start 12/05/16 at 10:30 Famotidine (Pepcid Iv) 20 mg Q24H IV Last administered on 12/05/16 20:16; Admin Dose 20 MG; Start 12/05/16 at 21:00 Miscellaneous Information 1 ea NOTE XX ; Start 12/05/16 at 11:00 Glucose (Glutose) 15 gm Q15M PRN PO DECREASED GLUCOSE; Start 12/05/16 at 11:00 Glucose (Glutose) 22.5 gm Q15M PRN PO DECREASED GLUCOSE; Start 12/05/16 at 11:00 Dextrose (D50w Syringe) 25 ml Q15M PRN IV DECREASED GLUCOSE; Start 12/05/16 at 11:00 Dextrose (D50w Syringe) 50 ml Q15M PRN IV DECREASED GLUCOSE; Start 12/05/16 at 11:00 Glucagon (Glucagen) 1 mg Q15M PRN IM DECREASED GLUCOSE; Start 12/05/16 at 11:00 Glucose (Glutose) 15 gm Q15M PRN BUCCAL DECREASED GLUCOSE; Start 12/05/16 at 11: 00 Carvedilol (Coreg) 3.125 mg BID PO Last administered on 12/06/16 08:26; Admin Dose 3.125 MG; Start 12/05/16 at 22:00 Acetaminophen (Tylenol Tab) 650 mg Q4H PRN PO Temp greater than 99.6F; Start at 11:30 Docusate Sodium (Colace) 100 mg BID PO ; Start 12/06/16 at 11:30 Lisinopril (Zestril) 20 mg DAILY PO ; Start 12/07/16 at 09:00 LENNY MELGOZA MD December 06, 2016 11:43
[2016-12-06] MEDS ORDERED: SOD CHLORIDE 0.9% 100 ML ONE (12:00)
[2016-12-06] MEDS ORDERED: IODIXANOL LOCM 100 ML BTL ONE (12:00)
--- NOTE | 2016-12-06 13:28 | RADRPT ---
PROCEDURE: CTA BRAIN WITH CONTRAST, CTA NECK WITH CONTRAST CLINICAL INDICATION: Neurologic deficit, Stroke COMPARISON: Correlation head CT today TECHNIQUE: Helical axial images were obtained through the neck and head with contrast. Oblique sagittal MIP morteza ges were obtained through the neck, and coronal and sagittal MIP images were obtained through the br ain. Additional 3D volumetric renderings were created. 100 cc of Isovue 370 was administered intra venously without reported complication. One or more of the following dose reduction techniques were used: Automated exposure control, Adjustment of the mA and/or kV according to patient size, and/or u se of iterative reconstruction technique. DOSE: CTDI = 26/15mGy and the DLP = 530mGy-cm. FINDINGS: CTA OF THE BRAIN: Severely motion degraded limiting evaluation. The right M1 segment is patent. Th ere is questionable stenosis versus artifact at the right MCA bifurcation and proximal right M2 bran ches. Contrast is seen within the right MCA distal branches. No definite proximal occlusion of the left MCA or bilateral ROSALINA. A right posterior communicating artery is identified. There is no evid ence of a proximal large vessel occlusion of the bilateral BUNCH MAKER. Artifact obscures the proximal basi lar artery. Questionable segmental narrowing of the left vertebral artery and proximal right vertebr al artery. CTA OF THE NECK: No evidence of a hemodynamically-significant stenosis or vessel dissection of the b ilateral common carotid, bilateral internal carotid, or bilateral vertebral arteries. Multinodular t hyroid gland. Partially imaged right greater than left pleural effusions. IMPRESSION: CTA HEAD: Severely motion degraded limiting evaluation. Questionable stenosis versus artifact at the right MCA bifurcation and proximal right M2 branches. Artifact obscures the proximal basilar artery. Questionable segmental narrowing of the left vertebral artery and proximal right vertebral artery. CTA NECK: No significant stenosis identified. Multinodular thyroid gland. Consider ultrasound for further characterization as warranted. Partially imaged right greater than left pleural effusions. A call report was made to KE JORGE at 12/06/2016 1:25:58 PM. RPTAT: AA .Priyank Gross MD, MD Date Time Electronically viewed and signed by .Priyank Gross MD, on 12/06/2016 13:28 .T/
--- NOTE | 2016-12-06 13:29 | RADRPT ---
PROCEDURE: CTA BRAIN WITH CONTRAST, CTA NECK WITH CONTRAST CLINICAL INDICATION: Neurologic deficit, Stroke COMPARISON: Correlation head CT today TECHNIQUE: Helical axial images were obtained through the neck and head with contrast. Oblique sagittal MIP morteza ges were obtained through the neck, and coronal and sagittal MIP images were obtained through the br ain. Additional 3D volumetric renderings were created. 100 cc of Isovue 370 was administered intra venously without reported complication. One or more of the following dose reduction techniques were used: Automated exposure control, Adjustment of the mA and/or kV according to patient size, and/or u se of iterative reconstruction technique. DOSE: CTDI = 26/15mGy and the DLP = 530mGy-cm. FINDINGS: CTA OF THE BRAIN: Severely motion degraded limiting evaluation. The right M1 segment is patent. Th ere is questionable stenosis versus artifact at the right MCA bifurcation and proximal right M2 bran ches. Contrast is seen within the right MCA distal branches. No definite proximal occlusion of the left MCA or bilateral ROSALINA. A right posterior communicating artery is identified. 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 Artifact obscures the proximal basi lar artery. Questionable segmental narrowing of the left vertebral artery and proximal right vertebr al artery. CTA OF THE NECK: No evidence of a hemodynamically-significant stenosis or vessel dissection of the b ilateral common carotid, bilateral internal carotid, or bilateral vertebral arteries. Multinodular t hyroid gland. Partially imaged right greater than left pleural effusions. IMPRESSION: CTA HEAD: Severely motion degraded limiting evaluation. Questionable stenosis versus artifact at the right MCA bifurcation and proximal right M2 branches. C onsider repeat imaging as warranted. Artifact obscures the proximal basilar artery. Questionable segmental narrowing of the left vertebral artery and proximal right vertebral artery. CTA NECK: No significant stenosis identified. Multinodular thyroid gland. Consider ultrasound for further characterization as warranted. Partially imaged right greater than left pleural effusions. A call report was made to KE JORGE at 12/06/2016 1:25:58 PM. RPTAT: AA .Priyank Gross MD, MD Date Time Electronically viewed and signed by .Priyank Gross MD, on 12/06/2016 13:29 .T/
--- NOTE | 2016-12-06 13:43 | CONS ---
Date/Time of Note Date/Time of Note DATE: 12/06/16 TIME: 13:42 Assessment/Plan Assessment/Plan Additional Assessment/Plan Acute CVA Acute decompensated systolic congestive heart failure Cardiomyopathy with ejection fraction 35-40% Mitral and tricuspid valve regurgitation Hypertension Acute kidney injury -Patient initially admitted with decompensated congestive heart failure and this morning, acute CVA status post TPA. Patient undergoing evaluation for possible transfer to tertiary center. Antiplatelet and anticoagulants as per neurology. Permissive hypertensive. Given worsening renal function, give gentle IV diuresis as needed with close monitoring of renal function. Hold nephrotoxic medications. Continue statin therapy. Consultation Date/Type/Reason Admit Date/Time December 05, 2016 at 10:24 Type of Consultation: cv Reason for Consultation CHF, CVA Hx of Present Illness This is a 76-year-old female with past medical history of hypertension who presents to the emergency room with symptoms of shortness of breath. History is obtained from the daughter since patient unable to give history at the current time. Shortness of breath progressed over the past couple days. Denied any chest effort. Denies any fevers or chills. Was having a mild cough. Denies dizziness, lightheadedness. This morning, patient with sudden change in mental status and hemiparesis and code stroke was called. Patient found clinically to have acute CVA and given TPA and transferred to the ICU. At the current time, she is able to nod her head to questions. She denies any shortness of breath, chest pain. 12 point review of systems was performed with all pertinent positives and negatives mentioned above and all else is negative Past Medical History Medical History: diabetes, high cholesterol, hypertension Family History Significant Family History: no pertinent family hx Social History Smoking Status: Never smoker Exam/Review of Systems Vital Signs Vitals Vital Signs Date Time Temp Pulse Resp B/P Pulse Ox O2 Delivery O2 Flow Rate FiO2 12/06/16 09:41 57 12/06/16 08:00 Nasal Cannula 3.0 12/06/16 07:40 97.7 20 158/74 99 12/05/16 06:22 60 Intake and Output 12/05/16 12/05/16 12/06/16 15:00 23:00 07:00 Intake Total 240 ml 200 ml Output Total 200 ml 850 ml Balance 40 ml -650 ml Exam Follow some commands, difficulty with speaking Constitutional: alert Head: normocephalic Respiratory: other (Coarse breath sounds bilaterally, no wheezing) Cardiovascular: other (S1-S2 heard), regular rate and rhythm, systolic murmur Gastrointestinal: bowel sounds, non-tender, soft Extremities: edema (Trace) Results Result Diagram: 12/06/16 0615 12/06/16 0615 Results 24 hrs Laboratory Tests Test 12/05/16 17:38 12/05/16 20:17 12/06/16 06:15 12/06/16 06:45 Bedside Glucose 118 140 White Blood Count 5.4 Red Blood Count 4.20 Hemoglobin 12.8 Hematocrit 40.0 Mean Corpuscular Volume 95.2 Mean Corpuscular Hemoglobin 30.5 Mean Corpuscular Hemoglobin Concent 32.0 Red Cell Distribution Width 13.7 Platelet Count 274 Mean Platelet Volume 11.9 H Neutrophils % 69.3 Lymphocytes % 22.8 Monocytes % 4.2 Eosinophils % 2.6 Basophils % 0.7 Nucleated Red Blood Cells % 0.0 Neutrophils # 3.8 Lymphocytes # 1.2 Monocytes # 0.2 L Eosinophils # 0.1 Basophils # 0.0 Nucleated Red Blood Cells # 0.0 Sodium Level 139 Potassium Level 4.0 Chloride Level 100 Carbon Dioxide Level 31 Anion Gap 12 Blood Urea Nitrogen 26 H Creatinine 1.53 H Glucose Level 127 # Calcium Level 9.1 Phosphorus Level 4.8 Magnesium Level 1.8 Total Bilirubin 0.8 Direct Bilirubin 0.00 Indirect Bilirubin 0.8 Aspartate Amino Transf (AST/SGOT) 23 Alanine Aminotransferase (ALT/SGPT) 30 Alkaline Phosphatase 83 Total Protein 7.6 Albumin 4.2 Globulin 3.40 H Albumin/Globulin Ratio 1.23 Prothrombin Time 12.9 Prothrombin Time Ratio 1.0 INR International Normalized Ratio 0.97 Activated Partial Thromboplast Time 33.7 Test 12/06/16 07:57 12/06/16 09:28 12/06/16 11:31 Bedside Glucose 141 214 189 Medications Medications Current Medications Amlodipine Besylate (Norvasc) 10 mg DAILY PO Last administered on 12/06/16 08: 25; Admin Dose 10 MG; Start 12/05/16 at 10:30 Aspirin (Halfprin) 81 mg DAILY PO Last administered on 12/06/16 08:26; Admin Dose 81 MG; Start 12/05/16 at 10:30 Atorvastatin Calcium (Lipitor) 20 mg QHS PO Last administered on 12/05/16 20:14 ; Admin Dose 20 MG; Start 12/05/16 at 21:00 Beta Carotene (Ocuvite) 1 tab DAILY PO Last administered on 12/06/16 08:24; Admin Dose 1 TAB; Start 12/05/16 at 10:30 Brimonidine Tartrate (Alphagan P 0.1%) 1 drop BID BOTH EYES Last administered on 12/05/16 20:13; Admin Dose 1 DROP; Start 12/05/16 at 10:30 Cholecalciferol (Vitamin D) 1,000 unit BID PO Last administered on 12/06/16 08: 31; Admin Dose 1,000 UNIT; Start 12/05/16 at 10:30 Clobetasol Propionate (Temovate 0.05% Cr) 1 applic BID TOP Last administered on 12/06/16 08:24; Admin Dose 1 APPLIC; Start 12/05/16 at 10:30 Linagliptin (Tradjenta) 5 mg DAILY PO Last administered on 12/06/16 08:25; Admin Dose 5 MG; Start 12/05/16 at 11:30 Salmeterol Xinafoate/ Fluticasone (Advair 250/50 Diskus) 1 inh BID INH Last administered on 12/06/16 08:24; Admin Dose 1 INH; Start 12/05/16 at 21:00 Potassium Chloride (Klor-Con 20) 20 meq BID PO Last administered on 12/06/16 08 :25; Admin Dose 20 MEQ; Start 12/05/16 at 21:00 Ondansetron HCl (Zofran Inj) 4 mg Q4H PRN IV NAUSEA AND/OR VOMITING; Start 12/05 at 10:30 Acetaminophen (Tylenol Tab) 650 mg Q6H PRN PO PAIN LEVEL 1-3; Start 12/05/16 at 10:30 Acetaminophen/ Hydrocodone Bitart ([place] (5/325)) 1 tab Q6H PRN PO MODERATE PAIN LEVEL 4-6 Last administered on 12/05/16 20:15; Admin Dose 1 TAB; Start 12/05 at 10:30 Morphine Sulfate (morphine) 1 mg Q4H PRN IV SEVERE PAIN LEVEL 7-10; Start at 10:30 Docusate Sodium (Colace) 100 mg Q12H PRN PO CONSTIPATION; Start 12/05/16 at 10: 30 Magnesium Hydroxide (Milk Of Mag) 30 ml DAILY PRN PO CONSTIPATION; Start at 10:30 Bisacodyl (Dulcolax) 5 mg DAILY PRN PO CONSTIPATION; Start 12/05/16 at 10:30 Bisacodyl (Dulcolax Supp) 10 mg DAILY PRN [place] CONSTIPATION; Start 12/05/16 at 10: 30 Zolpidem Tartrate (Ambien) 5 mg QHS PRN PO SLEEP; Start 12/05/16 at 10:30 Famotidine (Pepcid Iv) 20 mg Q24H IV Last administered on 12/05/16 20:16; Admin Dose 20 MG; Start 12/05/16 at 21:00 Miscellaneous Information 1 ea NOTE XX ; Start 12/05/16 at 11:00 Glucose (Glutose) 15 gm Q15M PRN PO DECREASED GLUCOSE; Start 12/05/16 at 11:00 Glucose (Glutose) 22.5 gm Q15M PRN PO DECREASED GLUCOSE; Start 12/05/16 at 11:00 Dextrose (D50w Syringe) 25 ml Q15M PRN IV DECREASED GLUCOSE; Start 12/05/16 at 11:00 Dextrose (D50w Syringe) 50 ml Q15M PRN IV DECREASED GLUCOSE; Start 12/05/16 at 11:00 Glucagon (Glucagen) 1 mg Q15M PRN IM DECREASED GLUCOSE; Start 12/05/16 at 11:00 Glucose (Glutose) 15 gm Q15M PRN BUCCAL DECREASED GLUCOSE; Start 12/05/16 at 11: 00 Carvedilol (Coreg) 3.125 mg BID PO Last administered on 12/06/16 08:26; Admin Dose 3.125 MG; Start 12/05/16 at 22:00 Acetaminophen (Tylenol Tab) 650 mg Q4H PRN PO Temp greater than 99.6F; Start at 11:30 Docusate Sodium (Colace) 100 mg BID PO ; Start 12/06/16 at 11:30 Lisinopril (Zestril) 20 mg DAILY PO ; Start 12/07/16 at 09:00 Procedures Procedures ECG sinus tachycardia 104 bpm, frequent PVCs, diffuse T-wave abnormalities Omega Chinchilla DO December 06, 2016 13:43
[2016-12-06] MEDS ORDERED: LABETALOL HCL 20MG INJ IV PRN (15:00)
--- NOTE | 2016-12-06 15:53 | PN ---
Date/Time of Note Date/Time of Note DATE: 12/06/16 TIME: 15:40 Assessment/Plan VTE Prophylaxis VTE Prophylaxis Intervention: heparin Lines/Catheters IV Catheter Type (from [facility] Urinary Cath still in place: No Assessment/Plan Assessment/Plan 1. Acute sudden onset left sided weakness concerned about Right MCA stroke s/p Tele Neurology consult, 2.Acute hypoxic respiratory failure requiring a BiPAP in the emergency room secondary to acute congestive heart failure exacerbation. 3. Acute congestive heart failure exacerbation, acute on chronic, systolic and diastolic.EF 35-40% on ECHO 4. Acute kidney injury on possible chronic kidney disease secondary to cardiorenal syndrome. 5. History of possible chronic kidney disease, unknown stage, secondary to diabetic nephropathy. 6. History of hypertension. 7. History of diabetes mellitus. 8. History of osteoporosis. Plan: Pt transferred to ICU for code stroke, S/p tele Neurolgoy consult- tPA administered, Also evaluated by Neurologist CT head negative for ICH CT neck and head angiogram negative for any occlusion - MRA brain has been orderd by neurology ECHO showed EF 35-40%- Cardiology has been following patient, on IV lasix for diuresis NPO, Speech therapy and PT consult Pt will stay in ICU if needed to get transfer to Higher level of care for Neuroradiology Intervention- we will have her transfer to [facility] [phone]- Appreciat Neurology and Cardiology help Subjective 24 Hr Interval Summary Free Text/Dictation pt had a code stroke called in today AM for LUE and LLE weakness wtih AMS, BP stable, S/p Tele neurology consult Exam/Review of Systems Vital Signs Vitals Vital Signs Date Time Temp Pulse Resp B/P Pulse Ox O2 Delivery O2 Flow Rate FiO2 12/06/16 15:00 69 18 149/71 100 Nasal Cannula 3.0 12/06/16 12:00 98.4 12/05/16 06:22 60 Intake and Output 12/05/16 12/05/16 12/06/16 15:00 23:00 07:00 Intake Total 240 ml 200 ml Output Total 200 ml 850 ml Balance 40 ml -650 ml Exam GENERAL: lethargic but arousable HEENT: Normal. VIVIEN, EOMI NECK: no JVD, supple no LAD LUNGS: Bibasilar crackles in lower lobes, decreased BS at bases, no wheezing HEART: S1, S2, tachycardia, no murmur. ABDOMEN: Soft, morbidly obese, nontender, nondistended. Bowel sounds are present. EXTREMITIES: mild to 1+ edema NEUROLOGICAL: confused but arousable, left facial droop, left arm is flaccid, left leg minimal withdrawal in plane of the bed right arm and leg intact strength Sensory decreased to left arm and leg SKIN: No rash. Results Result Diagram: 12/06/1615 12/06/1615 Results 24 hrs Laboratory Tests Test 12/05/16 17:38 12/05/16 20:17 12/06/16 06:15 12/06/16 06:45 Bedside Glucose 118 140 White Blood Count 5.4 Red Blood Count 4.20 Hemoglobin 12.8 Hematocrit 40.0 Mean Corpuscular Volume 95.2 Mean Corpuscular Hemoglobin 30.5 Mean Corpuscular Hemoglobin Concent 32.0 Red Cell Distribution Width 13.7 Platelet Count 274 Mean Platelet Volume 11.9 H Neutrophils % 69.3 Lymphocytes % 22.8 Monocytes % 4.2 Eosinophils % 2.6 Basophils % 0.7 Nucleated Red Blood Cells % 0.0 Neutrophils # 3.8 Lymphocytes # 1.2 Monocytes # 0.2 L Eosinophils # 0.1 Basophils # 0.0 Nucleated Red Blood Cells # 0.0 Sodium Level 139 Potassium Level 4.0 Chloride Level 100 Carbon Dioxide Level 31 Anion Gap 12 Blood Urea Nitrogen 26 H Creatinine 1.53 H Glucose Level 127 # Calcium Level 9.1 Phosphorus Level 4.8 Magnesium Level 1.8 Total Bilirubin 0.8 Direct Bilirubin 0.00 Indirect Bilirubin 0.8 Aspartate Amino Transf (AST/SGOT) 23 Alanine Aminotransferase (ALT/SGPT) 30 Alkaline Phosphatase 83 Total Protein 7.6 Albumin 4.2 Globulin 3.40 H Albumin/Globulin Ratio 1.23 Prothrombin Time 12.9 Prothrombin Time Ratio 1.0 INR International Normalized Ratio 0.97 Activated Partial Thromboplast Time 33.7 Test 12/06/16 07:57 12/06/16 09:28 12/06/16 11:31 Bedside Glucose 141 214 189 Medications Medications Current Medications Aspirin (Halfprin) 81 mg DAILY PO Last administered on 12/06/16t 08:26; Admin Dose 81 MG; Start 12/05/16 at 10:30 Beta Carotene (Ocuvite) 1 tab DAILY PO Last administered on 12/06/16 08:24; Admin Dose 1 TAB; Start 12/05/16 at 10:30 Brimonidine Tartrate (Alphagan P 0.1%) 1 drop BID BOTH EYES Last administered on 12/05/16 20:13; Admin Dose 1 DROP; Start 12/05/16 at 10:30 Cholecalciferol (Vitamin D) 1,000 unit BID PO Last administered on 12/06/16 08: 31; Admin Dose 1,000 UNIT; Start 12/05/16 at 10:30 Clobetasol Propionate (Temovate 0.05% Cr) 1 applic BID TOP Last administered on 12/06/16 08:24; Admin Dose 1 APPLIC; Start 12/05/16 at 10:30 Linagliptin (Tradjenta) 5 mg DAILY PO Last administered on 12/06/16 08:25; Admin Dose 5 MG; Start 12/05/16 at 11:30 Salmeterol Xinafoate/ Fluticasone (Advair 250/50 Diskus) 1 inh BID INH Last administered on 12/06/16 08:24; Admin Dose 1 INH; Start 12/05/16 at 21:00 Potassium Chloride (Klor-Con 20) 20 meq BID PO Last administered on 12/06/16 08 :25; Admin Dose 20 MEQ; Start 12/05/16 at 21:00 Ondansetron HCl (Zofran Inj) 4 mg Q4H PRN IV NAUSEA AND/OR VOMITING; Start 12/05 at 10:30 Acetaminophen (Tylenol Tab) 650 mg Q6H PRN PO PAIN LEVEL 1-3; Start 12/05/16 at 10:30 Acetaminophen/ Hydrocodone Bitart ([place] (5/325)) 1 tab Q6H PRN PO MODERATE PAIN LEVEL 4-6 Last administered on 12/05/16 20:15; Admin Dose 1 TAB; Start 12/05 at 10:30 Morphine Sulfate (morphine) 1 mg Q4H PRN IV SEVERE PAIN LEVEL 7-10; Start at 10:30 Docusate Sodium (Colace) 100 mg Q12H PRN PO CONSTIPATION; Start 12/05/16 at 10: 30 Magnesium Hydroxide (Milk Of Mag) 30 ml DAILY PRN PO CONSTIPATION; Start at 10:30 Bisacodyl (Dulcolax) 5 mg DAILY PRN PO CONSTIPATION; Start 12/05/16 at 10:30 Bisacodyl (Dulcolax Supp) 10 mg DAILY PRN [place] CONSTIPATION; Start 12/05/16 at 10: 30 Zolpidem Tartrate (Ambien) 5 mg QHS PRN PO SLEEP; Start 12/05/16 at 10:30 Famotidine (Pepcid Iv) 20 mg Q24H IV Last administered on 12/05/16 20:16; Admin Dose 20 MG; Start 12/05/16 at 21:00 Miscellaneous Information 1 ea NOTE XX ; Start 12/05/16 at 11:00 Glucose (Glutose) 15 gm Q15M PRN PO DECREASED GLUCOSE; Start 12/05/16 at 11:00 Glucose (Glutose) 22.5 gm Q15M PRN PO DECREASED GLUCOSE; Start 12/05/16 at 11:00 Dextrose (D50w Syringe) 25 ml Q15M PRN IV DECREASED GLUCOSE; Start 12/05/16 at 11:00 Dextrose (D50w Syringe) 50 ml Q15M PRN IV DECREASED GLUCOSE; Start 12/05/16 at 11:00 Glucagon (Glucagen) 1 mg Q15M PRN IM DECREASED GLUCOSE; Start 12/05/16 at 11:00 Glucose (Glutose) 15 gm Q15M PRN BUCCAL DECREASED GLUCOSE; Start 12/05/16 at 11: 00 Carvedilol (Coreg) 3.125 mg BID PO Last administered on 12/06/16 08:26; Admin Dose 3.125 MG; Start 12/05/16 at 22:00 Acetaminophen (Tylenol Tab) 650 mg Q4H PRN PO Temp greater than 99.6F; Start at 11:30 Docusate Sodium (Colace) 100 mg BID PO ; Start 12/06/16 at 11:30 Atorvastatin Calcium (Lipitor) 80 mg QHS PO ; Start 12/06/16 at 21:00 Labetalol HCl (Labetalol) 5 mg Q6H PRN IV ELEVATED SYSTOLIC BP; Start 12/06/16 at 15:00 RICK ESCAMILLA MD December 06, 2016 15:53
--- NOTE | 2016-12-06 16:42 | RADRPT ---
Vent Rate: 104 bpm RR Interval: 0 msec NH Interval: 148 msec QRS Duration: 70 msec QT Interval: 396 msec QTC Interval: 520 msec P-R-T Serena: 68 - 60 - 0 degrees Sinus tachycardia with frequent , and consecutive premature ventricular complexes Minimal voltage criteria for LVH, may be normal variant T wave abnormality, consider inferior ischemia T wave abnormality, consider anterolateral ischemia Abnormal ECG Electronically Signed By: Stef Desai [id number]
[2016-12-06 17:08] LABS: ADD UMIC NO; URINE BILIRUBIN (Dip) NEGATIVE (NEGATIVE); URINE BLOOD (Dip) NEGATIVE (NEGATIVE); URINE COLOR LT. YELLOW (YELLOW); URINE GLUCOSE (Dip) NEGATIVE (NEGATIVE); URINE KETONES (Dip) NEGATIVE (NEGATIVE); URINE LEUKOCYTE ESTERASE (Dip) NEGATIVE (NEGATIVE); URINE NITRITE (Dip) NEGATIVE (NEGATIVE); URINE TOTAL PROTEIN (Dip) NEGATIVE (NEGATIVE); URINE UROBILINOGEN (Dip) 0.2 E.U./dL (0.1-1.0)
--- NOTE | 2016-12-06 18:37 | RADRPT ---
PROCEDURE: MRI Brain without contrast. CLINICAL INDICATION: CVA. Neurological deficit. TECHNIQUE: An MRI of the brain was performed utilizing the following sequences: Sagittal and axial T1 weighted, axial T2 weighted, axial diffusion weighted with ADC mapping, coronal GRE, and axial F LAIR. COMPARISON: Brain CT and CTA of the same day. FINDINGS: There is restricted diffusion in the right posterior frontal lobe, parietal and temporal lobes consi stent with acute/recent infarct in right middle cerebral artery distribution. No hypointense signal abnormalities are seen on the GRE images to suggest the presence of blood degradation products. The re is no evidence of intracranial hemorrhage, mass effect, or midline shift. No extra-axial fluid co llections are seen. The ventricles and sulci are mildly enlarged indicative of volume loss. Small lacunar infarcts are noted in bilateral lentiform nuclei. There are mild to mod scattered foci of T2 FLAIR hyperintensity in the periventricular, deep, and sheppard bcortical white matter, which are nonspecific in etiology but likely reflect chronic small vessel is chemic changes. There is abnormal vascular flow void of left intradural vertebral artery concerning for stenosis. A branching vascular flow void is noted in the right cerebellar hemisphere which may represent a devel opmental venous anomaly. The visualized paranasal sinuses demonstrate mild to moderate mucosal thic kening mainly in ethmoid air cells and maxillary sinuses. There is mild opacification of the right m astoid air cells. IMPRESSION: 1. Acute/recent infarct in the the right posterior frontal lobe, parietal and temporal lobes in rig ht middle cerebral artery distribution. 2. Mild to moderate chronic small vessel ischemic changes. 3. Mild generalized cerebral volume loss. 4. Abnormal vascular flow void of left intradural vertebral artery concerning for stenosis. 5. A branching vascular flow void is noted in the right cerebellar hemisphere which may represent a developmental venous anomaly. A call report was made and above findings were discussed and acknowledged by the patient's nurse RN Lorena Wayne on 12/06/2016 6:29 PM to relay to Dr. Ortega. RPTAT: HFN .Selvin Orona MD, MD Date Time Electronically viewed and signed by .Selvin Orona MD, MD on 12/06/2016 18:36 .N/
--- NOTE | 2016-12-06 18:42 | RADRPT ---
PROCEDURE: MRA Brain. CLINICAL INDICATION: CVA TECHNIQUE: An MRA of the brain was performed without intravenous contrast utilizing the following sequences: 3-D [id number] images through the intracranial vasculature with post processed alma l intensity projections in multiple planes. COMPARISON: Concurrent MRI of the brain. Brain CT and CTA of the same day. FINDINGS: Multiple images are degraded by motion. There are mild right and mild to moderate left stenosis of cavernous and supraclinoid segments of th e internal carotid arteries. The petrous internal carotid artery segments are patent without evidenc e of significant stenosis. There is decreased flow related enhancement of the distal M1 and proximal M2 segments of right middle cerebral artery concerning for moderate stenosis. The proximal anterio r cerebral and left middle cerebral artery are patent without significant stenosis. There is predominant origin of right posterior cerebral artery with hypoplastic right P1 segme nt which are anatomical variation. There is significant decreased flow related enhancement of the l eft intradural vertebral artery concerning for severe stenosis. The intradural vertebral arteries, b asilar artery and posterior cerebral arteries are patent without evidence of significant focal steno sis. No aneurysms are identified. IMPRESSION: 1. Suboptimal motion degraded study. 2. Suspect moderate stenosis of distal M1 and proximal M2 segments of the right middle cerebral art jillian. 3. Suspect severe stenosis of left intradural vertebral artery. 4. Mild right and mild to moderate left stenosis of cavernous and supraclinoid segments of the inte rnal carotid arteries. 5. Otherwise no significant stenosis in the remainder of major intracranial arteries. A call report was made and above findings were discussed and acknowledged by the patient's nurse KE Wayne on 12/06/2016 6:29 PM to relay to Dr. Ortega. RPTAT: HFN .Selvin Orona MD, MD Date Time Electronically viewed and signed by .Selvin Orona MD, MD on 12/06/2016 18:42 .N/
[2016-12-06] MEDS: ATORVASTATIN 20 MG TAB PO SCH (21:00)
[2016-12-06] MEDS: FAMOTIDINE 20 MG INJ IV SCH (21:00)
[2016-12-07] VITALS (33 sets, daily range): BP systolic 123–172; BP diastolic 54–95; PULSE 63–91; RESP 17–30
[2016-12-07 05:05] LABS: ADD SCAN DIFF NO
[2016-12-07 05:10] LABS: BASOPHILS % 0.7 % (0.0-2.0); EOSINOPHILS # 0.1 10^3/ul (0.0-0.5); EOSINOPHILS % 2.2 % (0.0-7.0); HEMATOCRIT 38.4 % (37.0-47.0); HEMOGLOBIN 12.7 g/dl (12.0-16.0); LYMPHOCYTES # 1.1 10^3/ul (0.8-2.9); LYMPHOCYTES % 18.5 % (15.0-51.0); MEAN CORPUSCULAR HEMOGLOBIN 30.6 pg (29.0-33.0); MEAN CORPUSCULAR HGB CONC 33.1 g/dl (32.0-37.0); MEAN CORPUSCULAR VOLUME 92.5 fl (82.0-101.0); MEAN PLATELET VOLUME 11.3 fl (7.4-10.4); MONOCYTE # 0.3 10^3/ul (0.3-0.9); MONOCYTES % 5.4 % (0.0-11.0); NEUTROPHIL # 4.2 10^3/ul (1.6-7.5); PLATELET COUNT 245 10^3/UL (140-415); RED BLOOD COUNT 4.15 10^6/ul (4.20-5.40); RED CELL DISTRIBUTION WIDTH 13.3 % (11.5-14.5); WHITE BLOOD COUNT 5.8 10^3/ul (4.8-10.8)
[2016-12-07 05:34] LABS: ALBUMIN 3.9 g/dl (3.3-4.9); ALBUMIN/GLOBULIN RATIO 1.21; BILIRUBIN,INDIRECT 0.9 mg/dl (0-1.1); BILIRUBIN,TOTAL 0.9 mg/dl (0.2-1.3); CALCIUM 9.1 mg/dl (8.4-10.2); CREATININE 1.32 mg/dl (0.44-1.00); INR 0.98; POTASSIUM 3.6 mmol/L (3.5-5.1); TOTAL PROTEIN 7.1 g/dl (6.1-8.1)
[2016-12-07 05:35] LABS: CHOL/HDL RATIO 3.1 RATIO; PARTIAL THROMBOPLASTIN TIME 31.5 Sec (25.0-35.0)
[2016-12-07] MEDS: FUROSEMIDE 20 MG INJ IV SCH ×2 (06:09→18:32)
[2016-12-07] MEDS: INSULIN ASPART [NOVOLOG] 3 ML PEN SC SCH ×4 (07:35→20:33)
[2016-12-07] MEDS: ASPIRIN (EC) 81 MG TAB PO SCH (09:00)
[2016-12-07] MEDS: CHOLECALCIFEROL 1,000 UNIT TAB PO SCH ×2 (09:00→20:32)
[2016-12-07] MEDS: DOCUSATE SODIUM 100 MG CAP PO SCH ×2 (09:00→20:31)
[2016-12-07] MEDS: BETA CAROTENE/VIT C/E/MIN TAB PO SCH (09:00)
[2016-12-07] MEDS ORDERED: LISINOPRIL 20 MG TAB PO SCH (09:00)
[2016-12-07] MEDS: LINAGLIPTIN 5 MG TABLET PO SCH (09:00)
[2016-12-07] MEDS: POTASSIUM CHLORIDE (SR) 20 MEQ TAB PO SCH ×2 (09:00→20:32)
--- NOTE | 2016-12-07 09:05 | CONS ---
Date/Time of Note Date/Time of Note DATE: 12/07/16 TIME: 09:03 Assessment/Plan Assessment/Plan Chief Complaint/Hosp Course CVA Acute decompensated systolic congestive heart failure, improved Cardiomyopathy with ejection fraction 35-40% Mitral and tricuspid valve regurgitation Hypertension Acute kidney injury Problems: Additional Assessment/Plan 1) off ABDIEL due to SCOTT and permissive HTN 2) continue beta katherine 3) will check BNP 4) diuresis as needed Consultation Date/Type/Reason Admit Date/Time December 05, 2016 at 10:24 Initial Consult Date 12/06/16 Type of Consultation: cv Referring Provider: RICK ESCAMILLA MD 24 HR Interval Summary Free Text/Dictation awake, no distress, weak, apparent left sided weakness Detailed Summary Respiratory: no complaints Cardiovascular: no complaints Musculoskeletal: no complaints Neurologic: focal-weakness Exam/Review of Systems Vital Signs Vitals Vital Signs Date Time Temp Pulse Resp B/P Pulse Ox O2 Delivery O2 Flow Rate FiO2 12/07/16 08:00 78 12/07/16 07:00 25 154/81 99 Nasal Cannula 3.0 12/07/16 04:00 98.9 12/05/16 06:22 60 Intake and Output 12/06/16 12/06/16 12/07/16 15:00 23:00 07:00 Intake Total 290 ml 0 ml 0 ml Output Total 780 ml 530 ml 210 ml Balance -490 ml -530 ml -210 ml Exam Constitutional: frail Head: atraumatic, normocephalic Neck: supple Respiratory: diminished breath sounds Cardiovascular: regular rate and rhythm Gastrointestinal: soft Musculoskeletal: nl extremities to inspection Extremities: normal pulses Results Result Diagram: 12/07/16 0430 12/07/16 0430 Results 24 hrs Laboratory Tests Test 12/06/16 09:28 12/06/16 11:31 12/06/16 14:55 12/06/16 18:20 Bedside Glucose 214 189 128 Urine Color LT. YELLOW Urine Clarity SLIGHTLY CLOUDY Urine pH 5.0 Urine Specific [place] 1.010 Urine Ketones NEGATIVE Urine Nitrite NEGATIVE Urine Bilirubin NEGATIVE Urine Urobilinogen 0.2 E.U./dL Urine Leukocyte Esterase NEGATIVE Urine Hemoglobin NEGATIVE Urine Glucose NEGATIVE Urine Total Protein NEGATIVE Test 12/06/16 21:13 12/07/16 04:30 12/07/16 08:45 Bedside Glucose 145 127 White Blood Count 5.8 Red Blood Count 4.15 L Hemoglobin 12.7 Hematocrit 38.4 Mean Corpuscular Volume 92.5 Mean Corpuscular Hemoglobin 30.6 Mean Corpuscular Hemoglobin Concent 33.1 Red Cell Distribution Width 13.3 Platelet Count 245 Mean Platelet Volume 11.3 H Neutrophils % 73.0 Lymphocytes % 18.5 Monocytes % 5.4 Eosinophils % 2.2 Basophils % 0.7 Nucleated Red Blood Cells % 0.0 Neutrophils # 4.2 Lymphocytes # 1.1 Monocytes # 0.3 Eosinophils # 0.1 Basophils # 0.0 Nucleated Red Blood Cells # 0.0 Prothrombin Time 13.0 Prothrombin Time Ratio 1.0 INR International Normalized Ratio 0.98 Activated Partial Thromboplast Time 31.5 Sodium Level 139 Potassium Level 3.6 Chloride Level 101 Carbon Dioxide Level 28 Anion Gap 14 Blood Urea Nitrogen 26 H Creatinine 1.32 H Glucose Level 134 Hemoglobin A1c 6.6 H Calcium Level 9.1 Total Bilirubin 0.9 Direct Bilirubin 0.00 Indirect Bilirubin 0.9 Aspartate Amino Transf (AST/SGOT) 20 Alanine Aminotransferase (ALT/SGPT) 28 Alkaline Phosphatase 88 Total Protein 7.1 Albumin 3.9 Globulin 3.20 Albumin/Globulin Ratio 1.21 Triglycerides Level 163 H Cholesterol Level 124 LDL Cholesterol, Calculated 51 HDL Cholesterol 40 Cholesterol/HDL Ratio 3.1 Medications Medications Current Medications Aspirin (Halfprin) 81 mg DAILY PO Last administered on 12/06/16 08:26; Admin Dose 81 MG; Start 12/05/16 at 10:30 Beta Carotene (Ocuvite) 1 tab DAILY PO Last administered on 12/06/16 08:24; Admin Dose 1 TAB; Start 12/05/16 at 10:30 Brimonidine Tartrate (Alphagan P 0.1%) 1 drop BID BOTH EYES Last administered on 12/05/16 20:13; Admin Dose 1 DROP; Start 12/05/16 at 10:30 Cholecalciferol (Vitamin D) 1,000 unit BID PO Last administered on 12/06/16 08: 31; Admin Dose 1,000 UNIT; Start 12/05/16 at 10:30 Clobetasol Propionate (Temovate 0.05% Cr) 1 applic BID TOP Last administered on 12/06/16 08:24; Admin Dose 1 APPLIC; Start 12/05/16 at 10:30 Linagliptin (Tradjenta) 5 mg DAILY PO Last administered on 12/06/16 08:25; Admin Dose 5 MG; Start 12/05/16 at 11:30 Salmeterol Xinafoate/ Fluticasone (Advair 250/50 Diskus) 1 inh BID INH Last administered on 12/06/16 21:16; Admin Dose 1 INH; Start 12/05/16 at 21:00 Potassium Chloride (Klor-Con 20) 20 meq BID PO Last administered on 12/06/16 08 :25; Admin Dose 20 MEQ; Start 12/05/16 at 21:00 Ondansetron HCl (Zofran Inj) 4 mg Q4H PRN IV NAUSEA AND/OR VOMITING; Start 12/05 at 10:30 Acetaminophen (Tylenol Tab) 650 mg Q6H PRN PO PAIN LEVEL 1-3; Start 12/05/16 at 10:30 Acetaminophen/ Hydrocodone Bitart ([place] (5/325)) 1 tab Q6H PRN PO MODERATE PAIN LEVEL 4-6 Last administered on 12/05/16 20:15; Admin Dose 1 TAB; Start 12/05 at 10:30 Morphine Sulfate (morphine) 1 mg Q4H PRN IV SEVERE PAIN LEVEL 7-10; Start at 10:30 Docusate Sodium (Colace) 100 mg Q12H PRN PO CONSTIPATION; Start 12/05/16 at 10: 30 Magnesium Hydroxide (Milk Of Mag) 30 ml DAILY PRN PO CONSTIPATION; Start at 10:30 Bisacodyl (Dulcolax) 5 mg DAILY PRN PO CONSTIPATION; Start 12/05/16 at 10:30 Bisacodyl (Dulcolax Supp) 10 mg DAILY PRN [place] CONSTIPATION; Start 12/05/16 at 10: 30 Zolpidem Tartrate (Ambien) 5 mg QHS PRN PO SLEEP; Start 12/05/16 at 10:30 Famotidine (Pepcid Iv) 20 mg Q24H IV Last administered on 12/05/16 20:16; Admin Dose 20 MG; Start 12/05/16 at 21:00 Miscellaneous Information 1 ea NOTE XX ; Start 12/05/16 at 11:00 Glucose (Glutose) 15 gm Q15M PRN PO DECREASED GLUCOSE; Start 12/05/16 at 11:00 Glucose (Glutose) 22.5 gm Q15M PRN PO DECREASED GLUCOSE; Start 12/05/16 at 11:00 Dextrose (D50w Syringe) 25 ml Q15M PRN IV DECREASED GLUCOSE; Start 12/05/16 at 11:00 Dextrose (D50w Syringe) 50 ml Q15M PRN IV DECREASED GLUCOSE; Start 12/05/16 at 11:00 Glucagon (Glucagen) 1 mg Q15M PRN IM DECREASED GLUCOSE; Start 12/05/16 at 11:00 Glucose (Glutose) 15 gm Q15M PRN BUCCAL DECREASED GLUCOSE; Start 12/05/16 at 11: 00 Carvedilol (Coreg) 3.125 mg BID PO Last administered on 12/06/16 08:26; Admin Dose 3.125 MG; Start 12/05/16 at 22:00 Acetaminophen (Tylenol Tab) 650 mg Q4H PRN PO Temp greater than 99.6F; Start at 11:30 Docusate Sodium (Colace) 100 mg BID PO ; Start 12/06/16 at 11:30 Atorvastatin Calcium (Lipitor) 80 mg QHS PO ; Start 12/06/16 at 21:00 Labetalol HCl (Labetalol) 5 mg Q6H PRN IV ELEVATED SYSTOLIC BP; Start 12/06/16 at 15:00 ZECHARIAH NEFF MD December 07, 2016 09:05
[2016-12-07] MEDS: BRIMONIDINE 0.1% 5 ML OPH BOTH EYES SCH ×2 (09:32→20:35)
[2016-12-07] MEDS: SALMETEROL/FLUTICASONE 250/50 INHA INH SCH ×2 (09:32→20:34)
[2016-12-07] MEDS: CLOBETASOL 0.05% 15 GM CR TOP SCH ×2 (09:39→21:00)
--- NOTE | 2016-12-07 10:20 | CONS ---
Date/Time of Note Date/Time of Note DATE: 12/07/16 TIME: 10:16 Consult Date/Type/Reason Admit Date/Time December 05, 2016 at 10:24 Initial Consult Date 12/06/16 Type of Consultation: cv Reason for Consultation right MCA stroke Ordering Provider: RICK ESCAMILLA MD Subjective overnight remained stable, able to move the right arm and leg well, left only in plane of the bed able to communicate well w staff blood pressure remained stable Objective Vital Signs Date Time Temp Pulse Resp B/P Pulse Ox O2 Delivery O2 Flow Rate FiO2 12/07/16 08:00 78 12/07/16 07:00 25 154/81 99 Nasal Cannula 3.0 12/07/16 04:00 98.9 12/05/16 06:22 60 Intake and Output 12/06/16 12/06/16 12/07/16 15:00 23:00 07:00 Intake Total 290 ml 0 ml 0 ml Output Total 780 ml 530 ml 210 ml Balance -490 ml -530 ml -210 ml Exam awake and alert follows commands oriented x3 no neglect CN: MARIALUISA, blinks to threat bilaterally, left facial droop tongue midline Motor: left arm and leg withdraw to noxious in plane bed 2/5 right arm and leg 5/5 sensory: decreased to left arm and leg but does withdraw to noxious and localizes reflexes 2+ throughout left toe up Results/Medications Result Diagram: 12/07/16 0430 12/07/16 0430 Results 24 hrs Laboratory Tests Test 12/06/16 11:31 12/06/16 14:55 12/06/16 18:20 12/06/16 21:13 Bedside Glucose 189 128 145 Urine Color LT. YELLOW Urine Clarity SLIGHTLY CLOUDY Urine pH 5.0 Urine Specific [place] 1.010 Urine Ketones NEGATIVE Urine Nitrite NEGATIVE Urine Bilirubin NEGATIVE Urine Urobilinogen 0.2 E.U./dL Urine Leukocyte Esterase NEGATIVE Urine Hemoglobin NEGATIVE Urine Glucose NEGATIVE Urine Total Protein NEGATIVE Test 12/07/16 04:30 12/07/16 08:45 White Blood Count 5.8 Red Blood Count 4.15 L Hemoglobin 12.7 Hematocrit 38.4 Mean Corpuscular Volume 92.5 Mean Corpuscular Hemoglobin 30.6 Mean Corpuscular Hemoglobin Concent 33.1 Red Cell Distribution Width 13.3 Platelet Count 245 Mean Platelet Volume 11.3 H Neutrophils % 73.0 Lymphocytes % 18.5 Monocytes % 5.4 Eosinophils % 2.2 Basophils % 0.7 Nucleated Red Blood Cells % 0.0 Neutrophils # 4.2 Lymphocytes # 1.1 Monocytes # 0.3 Eosinophils # 0.1 Basophils # 0.0 Nucleated Red Blood Cells # 0.0 Prothrombin Time 13.0 Prothrombin Time Ratio 1.0 INR International Normalized Ratio 0.98 Activated Partial Thromboplast Time 31.5 Sodium Level 139 Potassium Level 3.6 Chloride Level 101 Carbon Dioxide Level 28 Anion Gap 14 Blood Urea Nitrogen 26 H Creatinine 1.32 H Glucose Level 134 Hemoglobin A1c 6.6 H Calcium Level 9.1 Total Bilirubin 0.9 Direct Bilirubin 0.00 Indirect Bilirubin 0.9 Aspartate Amino Transf (AST/SGOT) 20 Alanine Aminotransferase (ALT/SGPT) 28 Alkaline Phosphatase 88 Total Protein 7.1 Albumin 3.9 Globulin 3.20 Albumin/Globulin Ratio 1.21 Triglycerides Level 163 H Cholesterol Level 124 LDL Cholesterol, Calculated 51 HDL Cholesterol 40 Cholesterol/HDL Ratio 3.1 Bedside Glucose 127 Medications Current Medications Aspirin (Halfprin) 81 mg DAILY PO Last administered on 12/06/16 08:26; Admin Dose 81 MG; Start 12/05/16 at 10:30 Beta Carotene (Ocuvite) 1 tab DAILY PO Last administered on 12/06/16 08:24; Admin Dose 1 TAB; Start 12/05/16 at 10:30 Brimonidine Tartrate (Alphagan P 0.1%) 1 drop BID BOTH EYES Last administered on 12/07/16 09:32; Admin Dose 1 DROP; Start 12/05/16 at 10:30 Cholecalciferol (Vitamin D) 1,000 unit BID PO Last administered on 12/06/16 08: 31; Admin Dose 1,000 UNIT; Start 12/05/16 at 10:30 Clobetasol Propionate (Temovate 0.05% Cr) 1 applic BID TOP Last administered on 12/07/16 09:39; Admin Dose 1 APPLIC; Start 12/05/16 at 10:30 Linagliptin (Tradjenta) 5 mg DAILY PO Last administered on 12/06/16 08:25; Admin Dose 5 MG; Start 12/05/16 at 11:30 Salmeterol Xinafoate/ Fluticasone (Advair 250/50 Diskus) 1 inh BID INH Last administered on 12/07/16 09:32; Admin Dose 1 INH; Start 12/05/16 at 21:00 Potassium Chloride (Klor-Con 20) 20 meq BID PO Last administered on 12/06/16 08 :25; Admin Dose 20 MEQ; Start 12/05/16 at 21:00 Ondansetron HCl (Zofran Inj) 4 mg Q4H PRN IV NAUSEA AND/OR VOMITING; Start 12/05 at 10:30 Acetaminophen (Tylenol Tab) 650 mg Q6H PRN PO PAIN LEVEL 1-3; Start 12/05/16 at 10:30 Acetaminophen/ Hydrocodone Bitart ([place] (5/325)) 1 tab Q6H PRN PO MODERATE PAIN LEVEL 4-6 Last administered on 12/05/16 20:15; Admin Dose 1 TAB; Start 12/05 at 10:30 Morphine Sulfate (morphine) 1 mg Q4H PRN IV SEVERE PAIN LEVEL 7-10; Start at 10:30 Docusate Sodium (Colace) 100 mg Q12H PRN PO CONSTIPATION; Start 12/05/16 at 10: 30 Magnesium Hydroxide (Milk Of Mag) 30 ml DAILY PRN PO CONSTIPATION; Start at 10:30 Bisacodyl (Dulcolax) 5 mg DAILY PRN PO CONSTIPATION; Start 12/05/16 at 10:30 Bisacodyl (Dulcolax Supp) 10 mg DAILY PRN [place] CONSTIPATION; Start 12/05/16 at 10: 30 Zolpidem Tartrate (Ambien) 5 mg QHS PRN PO SLEEP; Start 12/05/16 at 10:30 Famotidine (Pepcid Iv) 20 mg Q24H IV Last administered on 12/05/16 20:16; Admin Dose 20 MG; Start 12/05/16 at 21:00 Miscellaneous Information 1 ea NOTE XX ; Start 12/05/16 at 11:00 Glucose (Glutose) 15 gm Q15M PRN PO DECREASED GLUCOSE; Start 12/05/16 at 11:00 Glucose (Glutose) 22.5 gm Q15M PRN PO DECREASED GLUCOSE; Start 12/05/16 at 11:00 Dextrose (D50w Syringe) 25 ml Q15M PRN IV DECREASED GLUCOSE; Start 5/4/17 at 11:00 Dextrose (D50w Syringe) 50 ml Q15M PRN IV DECREASED GLUCOSE; Start 12/05/16 at 11:00 Glucagon (Glucagen) 1 mg Q15M PRN IM DECREASED GLUCOSE; Start 12/05/16 at 11:00 Glucose (Glutose) 15 gm Q15M PRN BUCCAL DECREASED GLUCOSE; Start 12/05/16 at 11: 00 Carvedilol (Coreg) 3.125 mg BID PO Last administered on 12/06/16t 08:26; Admin Dose 3.125 MG; Start 12/05/16 at 22:00 Acetaminophen (Tylenol Tab) 650 mg Q4H PRN PO Temp greater than 99.6F; Start at 11:30 Docusate Sodium (Colace) 100 mg BID PO ; Start 12/06/16 at 11:30 Atorvastatin Calcium (Lipitor) 80 mg QHS PO ; Start 12/06/16 at 21:00 Labetalol HCl (Labetalol) 5 mg Q6H PRN IV ELEVATED SYSTOLIC BP; Start 12/06/16 at 15:00 Assessment/Plan Chief Complaint/Hosp Course 76 year old female with history HTN, HLD, DM, CKD admitted with CHF exacerbation (EF 35-40%) and hypertensive emergency developed sudden onset left sided weakness s/p IV tPA. CTA and MRA confirmed moderate Right MCA stenosis, MRI confirmed infarction right frontal/temporal lobe Right MCA territory. -maintain SBP<180/105 -repeat Head CT pending this afternoon, if negative for hemorrhage will suggest initiating aspirin 81 mg and plavix 75 mg daily for suspected intracranial atherosclerosis as etiology for stroke -repeat stat for any decline in neurologic status -check HBA1C, FLP start Lipitor 80 mg qhs for suspected intracranial atherosclerosis -NPO continue speech/swallow evaluations daily -tele monitoring for afib -PT/OT consultation may be able to tolerate AR -DVT ppx- start pharmacologic ppx after repeat Head CT will continue to follow w further recommendations Problems: LENNY MELGOZA MD December 07, 2016 10:20
--- NOTE | 2016-12-07 12:01 | PN ---
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 s/p TPA CHF,improved HTN DM HL stage 3 CKD Transfer to [facility] soft diet repeat head CT today start asa and plavix if no bleed PT neuro and cards follow up Exam/Review of Systems Vital Signs Vitals Vital Signs Date Time Temp Pulse Resp B/P Pulse Ox O2 Delivery O2 Flow Rate FiO2 12/07/16 11:00 85 26 148/95 98 Nasal Cannula 2.0 12/07/16 08:00 99.1 12/05/16 06:22 60 Intake and Output 12/06/16 12/06/16 12/07/16 15:00 23:00 07:00 Intake Total 290 ml 0 ml 0 ml Output Total 780 ml 530 ml 210 ml Balance -490 ml -530 ml -210 ml Exam Constitutional: alert Neck: non-tender, supple Respiratory: clear to auscultation Cardiovascular: regular rate and rhythm Gastrointestinal: bowel sounds, non-tender, soft Neurological: focal weakness (L side with 2/5 strength) Results Result Diagram: 12/07/16 0430 12/07/16 0430 Results 24 hrs Laboratory Tests Test 12/06/16 14:55 12/06/16 18:20 12/06/16 21:13 12/07/16 04:30 Urine Color LT. YELLOW Urine Clarity SLIGHTLY CLOUDY Urine pH 5.0 Urine Specific [place] 1.010 Urine Ketones NEGATIVE Urine Nitrite NEGATIVE Urine Bilirubin NEGATIVE Urine Urobilinogen 0.2 E.U./dL Urine Leukocyte Esterase NEGATIVE Urine Hemoglobin NEGATIVE Urine Glucose NEGATIVE Urine Total Protein NEGATIVE Bedside Glucose 128 145 White Blood Count 5.8 Red Blood Count 4.15 L Hemoglobin 12.7 Hematocrit 38.4 Mean Corpuscular Volume 92.5 Mean Corpuscular Hemoglobin 30.6 Mean Corpuscular Hemoglobin Concent 33.1 Red Cell Distribution Width 13.3 Platelet Count 245 Mean Platelet Volume 11.3 H Neutrophils % 73.0 Lymphocytes % 18.5 Monocytes % 5.4 Eosinophils % 2.2 Basophils % 0.7 Nucleated Red Blood Cells % 0.0 Neutrophils # 4.2 Lymphocytes # 1.1 Monocytes # 0.3 Eosinophils # 0.1 Basophils # 0.0 Nucleated Red Blood Cells # 0.0 Prothrombin Time 13.0 Prothrombin Time Ratio 1.0 INR International Normalized Ratio 0.98 Activated Partial Thromboplast Time 31.5 Sodium Level 139 Potassium Level 3.6 Chloride Level 101 Carbon Dioxide Level 28 Anion Gap 14 Blood Urea Nitrogen 26 H Creatinine 1.32 H Glucose Level 134 Hemoglobin A1c 6.6 H Calcium Level 9.1 Total Bilirubin 0.9 Direct Bilirubin 0.00 Indirect Bilirubin 0.9 Aspartate Amino Transf (AST/SGOT) 20 Alanine Aminotransferase (ALT/SGPT) 28 Alkaline Phosphatase 88 Total Protein 7.1 Albumin 3.9 Globulin 3.20 Albumin/Globulin Ratio 1.21 Triglycerides Level 163 H Cholesterol Level 124 LDL Cholesterol, Calculated 51 HDL Cholesterol 40 Cholesterol/HDL Ratio 3.1 Test 12/07/16 08:45 Bedside Glucose 127 Medications Medications Current Medications Aspirin (Halfprin) 81 mg DAILY PO Last administered on 12/06/16 08:26; Admin Dose 81 MG; Start 12/05/16 at 10:30 Beta Carotene (Ocuvite) 1 tab DAILY PO Last administered on 12/06/16 08:24; Admin Dose 1 TAB; Start 12/05/16 at 10:30 Brimonidine Tartrate (Alphagan P 0.1%) 1 drop BID BOTH EYES Last administered on 12/07/16 09:32; Admin Dose 1 DROP; Start 12/05/16 at 10:30 Cholecalciferol (Vitamin D) 1,000 unit BID PO Last administered on 12/06/16 08: 31; Admin Dose 1,000 UNIT; Start 12/05/16 at 10:30 Clobetasol Propionate (Temovate 0.05% Cr) 1 applic BID TOP Last administered on 12/07/16 09:39; Admin Dose 1 APPLIC; Start 12/05/16 at 10:30 Linagliptin (Tradjenta) 5 mg DAILY PO Last administered on 12/06/16 08:25; Admin Dose 5 MG; Start 12/05/16 at 11:30 Salmeterol Xinafoate/ Fluticasone (Advair 250/50 Diskus) 1 inh BID INH Last administered on 12/07/16 09:32; Admin Dose 1 INH; Start 12/05/16 at 21:00 Potassium Chloride (Klor-Con 20) 20 meq BID PO Last administered on 12/06/16 08 :25; Admin Dose 20 MEQ; Start 12/05/16 at 21:00 Ondansetron HCl (Zofran Inj) 4 mg Q4H PRN IV NAUSEA AND/OR VOMITING; Start 12/05 at 10:30 Acetaminophen (Tylenol Tab) 650 mg Q6H PRN PO PAIN LEVEL 1-3; Start 12/05/16 at 10:30 Acetaminophen/ Hydrocodone Bitart ([place] (5/325)) 1 tab Q6H PRN PO MODERATE PAIN LEVEL 4-6 Last administered on 12/05/16 20:15; Admin Dose 1 TAB; Start 12/05 at 10:30 Morphine Sulfate (morphine) 1 mg Q4H PRN IV SEVERE PAIN LEVEL 7-10; Start at 10:30 Docusate Sodium (Colace) 100 mg Q12H PRN PO CONSTIPATION; Start 12/05/16 at 10: 30 Magnesium Hydroxide (Milk Of Mag) 30 ml DAILY PRN PO CONSTIPATION; Start at 10:30 Bisacodyl (Dulcolax) 5 mg DAILY PRN PO CONSTIPATION; Start 12/05/16 at 10:30 Bisacodyl (Dulcolax Supp) 10 mg DAILY PRN [place] CONSTIPATION; Start 12/05/16 at 10: 30 Zolpidem Tartrate (Ambien) 5 mg QHS PRN PO SLEEP; Start 12/05/16 at 10:30 Famotidine (Pepcid Iv) 20 mg Q24H IV Last administered on 12/05/16 20:16; Admin Dose 20 MG; Start 12/05/16 at 21:00 Miscellaneous Information 1 ea NOTE XX ; Start 12/05/16 at 11:00 Glucose (Glutose) 15 gm Q15M PRN PO DECREASED GLUCOSE; Start 12/05/16 at 11:00 Glucose (Glutose) 22.5 gm Q15M PRN PO DECREASED GLUCOSE; Start 12/05/16 at 11:00 Dextrose (D50w Syringe) 25 ml Q15M PRN IV DECREASED GLUCOSE; Start 12/05/16 at 11:00 Dextrose (D50w Syringe) 50 ml Q15M PRN IV DECREASED GLUCOSE; Start 12/05/16 at 11:00 Glucagon (Glucagen) 1 mg Q15M PRN IM DECREASED GLUCOSE; Start 12/05/16 at 11:00 Glucose (Glutose) 15 gm Q15M PRN BUCCAL DECREASED GLUCOSE; Start 12/05/16 at 11: 00 Carvedilol (Coreg) 3.125 mg BID PO Last administered on 12/06/16 08:26; Admin Dose 3.125 MG; Start 12/05/16 at 22:00 Acetaminophen (Tylenol Tab) 650 mg Q4H PRN PO Temp greater than 99.6F; Start at 11:30 Docusate Sodium (Colace) 100 mg BID PO ; Start 12/06/16 at 11:30 Atorvastatin Calcium (Lipitor) 80 mg QHS PO ; Start 12/06/16 at 21:00 Labetalol HCl (Labetalol) 5 mg Q6H PRN IV ELEVATED SYSTOLIC BP; Start 12/06/16 at 15:00 PK GALO MD December 07, 2016 12:01
--- NOTE | 2016-12-07 17:35 | RADRPT ---
PROCEDURE: Noncontrast CT Head. CLINICAL INDICATION: CVA. Status post t-PA. TECHNIQUE: Noncontrast CT of the head was obtained. The administered radiation dose was CTDI vol = 43.86 mGy, DLP = 720.23 mGy-cm. One or more of the following dose reduction techniques were used: Au tomated exposure control, Adjustment of the mA and/or kV according to patient size, or Use of iterat shiv reconstruction technique. COMPARISON: Noncontrast CT of the head as well as the MRI of the brain and CT of the head and neck f rom December 06, 2016. FINDINGS: There is loss of davis-white differentiation again noted within the right precentral and post central gyri involving the right frontal operculum and minimally involving the right superior temporal lobe as noted on recent MRI compatible with acute / recent infarctions. There is adjacent subcortical hy poattenuation. There is mild generalized cerebral volume loss. There is mild to moderate periventricular hypoattenu ation suggesting chronic microvascular ischemic changes. There are mild vascular calcifications wi thin the intracranial carotid arteries. There is an empty sella turcica. There is no CT evidence of hemorrhagic transformation or intracranial hemorrhage. No extra-axial fluid collection is identified. No midline shift is identified. The orbits are within normal limits. The paranasal sinuses are well aerated. No destructive osseous lesion is identified. IMPRESSION: 1. Acute / recent right middle cerebral infarction within the right precentral/post central gyri, r ight frontal operculum, and minimal right superior temporal lobe better appreciated on recent MRI. 2. No CT evidence of hemorrhagic transformation or intracranial hemorrhage. 3. Mild generalized cerebral volume loss. 4. Mild to moderate chronic microvascular ischemic changes. 5. Empty sella turcica. Further findings as detailed above. RPTAT: HVF .Amarjit Nelson MD, Date Time Electronically viewed and signed by .Amarjit Nelson MD, on 12/07/2016 17:34 .F/
[2016-12-07] MEDS: FAMOTIDINE 20 MG INJ IV SCH (20:31)
[2016-12-07] MEDS: ATORVASTATIN 20 MG TAB PO SCH (20:32)
[2016-12-08] VITALS (13 sets, daily range): BP systolic 111–159; BP diastolic 59–75; PULSE 60–76; RESP 18–20
[2016-12-08] MEDS: FUROSEMIDE 20 MG INJ IV SCH ×2 (05:12→17:52)
[2016-12-08] MEDS: INSULIN ASPART [NOVOLOG] 3 ML PEN SC SCH ×4 (07:55→20:39)
[2016-12-08] MEDS: POTASSIUM CHLORIDE (SR) 20 MEQ TAB PO SCH ×2 (09:19→21:29)
[2016-12-08] MEDS: ASPIRIN (EC) 81 MG TAB PO SCH (09:19)
[2016-12-08] MEDS: LINAGLIPTIN 5 MG TABLET PO SCH (09:19)
[2016-12-08] MEDS: DOCUSATE SODIUM 100 MG CAP PO SCH ×2 (09:19→21:29)
[2016-12-08] MEDS: BETA CAROTENE/VIT C/E/MIN TAB PO SCH (09:19)
[2016-12-08] MEDS: CHOLECALCIFEROL 1,000 UNIT TAB PO SCH ×2 (09:19→21:29)
[2016-12-08] MEDS: CLOPIDOGREL 75 MG TAB PO SCH (09:20)
[2016-12-08] MEDS: SALMETEROL/FLUTICASONE 250/50 INHA INH SCH ×2 (09:21→21:30)
[2016-12-08] MEDS: BRIMONIDINE 0.1% 5 ML OPH BOTH EYES SCH ×2 (09:21→21:30)
[2016-12-08] MEDS: CLOBETASOL 0.05% 15 GM CR TOP SCH ×2 (09:23→21:31)
--- NOTE | 2016-12-08 09:58 | PN ---
Date/Time of Note Date/Time of Note DATE: 12/08/16 TIME: 09:53 Assessment/Plan VTE Prophylaxis VTE Prophylaxis Intervention: LMWH Lines/Catheters IV Catheter Type (from Nrs): Saline Lock Urinary Cath still in place: Yes Reason Cath still needed: skin wounds contaminated by urine Assessment/Plan Assessment/Plan 76 yo female with acute embolic CVA and L hemiperesis CHF HTN HL Stage 3 CKD Cont current therapy PT diuresis neuro and cardio f/u DC plan to SNF Subjective 24 Hr Interval Summary Constitutional: no complaints Exam/Review of Systems Vital Signs Vitals Vital Signs Date Time Temp Pulse Resp B/P Pulse Ox O2 Delivery O2 Flow Rate FiO2 12/08/16 09:44 76 12/08/16 07:41 98.1 18 159/75 100 12/07/16 22:30 2.0 12/07/16 19:53 Nasal Cannula 12/05/16 06:22 60 Intake and Output 12/07/16 12/07/16 12/08/16 15:00 23:00 07:00 Intake Total 60 ml Output Total 335 ml 60 ml Balance -335 ml 0 ml Exam Constitutional: alert, oriented Neck: non-tender, supple Respiratory: clear to auscultation Cardiovascular: regular rate and rhythm Gastrointestinal: non-tender, soft 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 (L sided weakness) Results Result Diagram: 12/07/16 0430 12/07/16 0430 Results 24 hrs Laboratory Tests Test 12/07/16 13:07 12/07/16 18:21 12/07/16 20:16 12/08/16 07:29 Bedside Glucose 166 130 153 125 Medications Medications Current Medications Aspirin (Halfprin) 81 mg DAILY PO Last administered on 12/08/16 09:19; Admin Dose 81 MG; Start 12/05/16 at 10:30 Beta Carotene (Ocuvite) 1 tab DAILY PO Last administered on 12/08/16 09:19; Admin Dose 1 TAB; Start 12/05/16 at 10:30 Brimonidine Tartrate (Alphagan P 0.1%) 1 drop BID BOTH EYES Last administered on 12/08/16 09:21; Admin Dose 1 DROP; Start 12/05/16 at 10:30 Cholecalciferol (Vitamin D) 1,000 unit BID PO Last administered on 12/08/16 09: 19; Admin Dose 1,000 UNIT; Start 12/05/16 at 10:30 Clobetasol Propionate (Temovate 0.05% Cr) 1 applic BID TOP Last administered on 12/08/16 09:23; Admin Dose 1 APPLIC; Start 12/05/16 at 10:30 Linagliptin (Tradjenta) 5 mg DAILY PO Last administered on 12/08/16 09:19; Admin Dose 5 MG; Start 12/05/16 at 11:30 Salmeterol Xinafoate/ Fluticasone (Advair 250/50 Diskus) 1 inh BID INH Last administered on 12/08/16 09:21; Admin Dose 1 INH; Start 12/05/16 at 21:00 Potassium Chloride (Klor-Con 20) 20 meq BID PO Last administered on 12/08/16 09 :19; Admin Dose 20 MEQ; Start 12/05/16 at 21:00 Ondansetron HCl (Zofran Inj) 4 mg Q4H PRN IV NAUSEA AND/OR VOMITING; Start 12/05 at 10:30 Acetaminophen (Tylenol Tab) 650 mg Q6H PRN PO PAIN LEVEL 1-3; Start 12/05/16 at 10:30 Acetaminophen/ Hydrocodone Bitart ([place] (5/325)) 1 tab Q6H PRN PO MODERATE PAIN LEVEL 4-6 Last administered on 12/05/16 20:15; Admin Dose 1 TAB; Start 12/05 at 10:30 Morphine Sulfate (morphine) 1 mg Q4H PRN IV SEVERE PAIN LEVEL 7-10; Start at 10:30 Docusate Sodium (Colace) 100 mg Q12H PRN PO CONSTIPATION; Start 12/05/16 at 10: 30 Magnesium Hydroxide (Milk Of Mag) 30 ml DAILY PRN PO CONSTIPATION; Start at 10:30 Bisacodyl (Dulcolax) 5 mg DAILY PRN PO CONSTIPATION; Start 12/05/16 at 10:30 Bisacodyl (Dulcolax Supp) [address] [place] CONSTIPATION; Start 12/05/16 at 10: 30 Zolpidem Tartrate (Ambien) 5 mg QHS PRN PO SLEEP; Start 12/05/16 at 10:30 Famotidine (Pepcid Iv) 20 mg Q24H IV Last administered on 12/07/16 20:31; Admin Dose 20 MG; Start 12/05/16 at 21:00 Miscellaneous Information 1 ea NOTE XX ; Start 12/05/16 at 11:00 Glucose (Glutose) 15 gm Q15M PRN PO DECREASED GLUCOSE; Start 12/05/16 at 11:00 Glucose (Glutose) 22.5 gm Q15M PRN PO DECREASED GLUCOSE; Start 12/05/16 at 11:00 Dextrose (D50w Syringe) 25 ml Q15M PRN IV DECREASED GLUCOSE; Start 12/05/16 at 11:00 Dextrose (D50w Syringe) 50 ml Q15M PRN IV DECREASED GLUCOSE; Start 12/05/16 at 11:00 Glucagon (Glucagen) 1 mg Q15M PRN IM DECREASED GLUCOSE; Start 12/05/16 at 11:00 Glucose (Glutose) 15 gm Q15M PRN BUCCAL DECREASED GLUCOSE; Start 12/05/16 at 11: 00 Carvedilol (Coreg) 3.125 mg BID PO Last administered on 12/08/16 09:20; Admin Dose 3.125 MG; Start 12/05/16 at 22:00 Acetaminophen (Tylenol Tab) 650 mg Q4H PRN PO Temp greater than 99.6F; Start at 11:30 Docusate Sodium (Colace) 100 mg BID PO Last administered on 12/08/16 09:19; Admin Dose 100 MG; Start 12/06/16 at 11:30 Atorvastatin Calcium (Lipitor) 80 mg QHS PO Last administered on 12/07/16 20:32 ; Admin Dose 80 MG; Start 12/06/16 at 21:00 Labetalol HCl (Labetalol) 5 mg Q6H PRN IV ELEVATED SYSTOLIC BP; Start 12/06/16 at 15:00 Clopidogrel Bisulfate (plaVIX) 75 mg DAILY PO Last administered on 12/08/16 09: 20; Admin Dose 75 MG; Start 12/08/16 at 09:00 PK GALO MD December 08, 2016 09:58
--- NOTE | 2016-12-08 12:15 | CONS ---
Date/Time of Note Date/Time of Note DATE: 12/08/16 TIME: 12:11 Assessment/Plan Assessment/Plan Additional Assessment/Plan CVA Acute decompensated systolic congestive heart failure, improved Cardiomyopathy with ejection fraction 35-40% Mitral and tricuspid valve regurgitation Hypertension -Patient with improvement in lung examination. Would order chest x-ray for the a.m. Continue Coreg as blood pressure and heart rate permits. Blood pressure and renal function remained stable, will start ABDIEL inhibitor in the next 1-2 days. Maintain potassium above 4.0 and magnesium above 2.0. Continue telemetry monitoring. Consultation Date/Type/Reason Admit Date/Time December 05, 2016 at 10:24 Initial Consult Date 12/06/16 Type of Consultation: cv Referring Provider: RICK ESCAMILLA MD 24 HR Interval Summary Free Text/Dictation Denies shortness of breath, feeling better, no palpitations or chest pain Exam/Review of Systems Vital Signs Vitals Vital Signs Date Time Temp Pulse Resp B/P Pulse Ox O2 Delivery O2 Flow Rate FiO2 12/08/16 11:01 98.0 76 20 141/75 100 12/08/16 08:30 Nasal Cannula 2.0 12/05/16 06:22 60 Intake and Output 12/07/16 12/07/16 12/08/16 15:00 23:00 07:00 Intake Total 60 ml Output Total 335 ml 60 ml Balance -335 ml 0 ml Exam Left hemiparesis, family at bedside, no apparent distress Constitutional: alert, oriented Head: normocephalic Respiratory: other (Coarse breath sounds bilaterally, no wheezing) Cardiovascular: other (S1-S2 heard), regular rate and rhythm Gastrointestinal: bowel sounds, non-tender, soft Extremities: edema (Trace) Results Result Diagram: 12/07/16 0430 12/07/16 0430 Results 24 hrs Laboratory Tests Test 12/07/16 13:07 12/07/16 18:21 12/07/16 20:16 12/08/16 07:29 Bedside Glucose 166 130 153 125 Test 12/08/16 10:20 B-Type Natriuretic Peptide 4510 H Medications Medications Current Medications Aspirin (Halfprin) 81 mg DAILY PO Last administered on 12/08/16t 09:19; Admin Dose 81 MG; Start 12/05/16 at 10:30 Beta Carotene (Ocuvite) 1 tab DAILY PO Last administered on 12/08/16 09:19; Admin Dose 1 TAB; Start 12/05/16 at 10:30 Brimonidine Tartrate (Alphagan P 0.1%) 1 drop BID BOTH EYES Last administered on 12/08/16 09:21; Admin Dose 1 DROP; Start 12/05/16 at 10:30 Cholecalciferol (Vitamin D) 1,000 unit BID PO Last administered on 12/08/16 09: 19; Admin Dose 1,000 UNIT; Start 12/05/16 at 10:30 Clobetasol Propionate (Temovate 0.05% Cr) 1 applic BID TOP Last administered on 12/08/16 09:23; Admin Dose 1 APPLIC; Start 12/05/16 at 10:30 Linagliptin (Tradjenta) 5 mg DAILY PO Last administered on 12/08/16 09:19; Admin Dose 5 MG; Start 12/05/16 at 11:30 Salmeterol Xinafoate/ Fluticasone (Advair 250/50 Diskus) 1 inh BID INH Last administered on 12/08/16 09:21; Admin Dose 1 INH; Start 12/05/16 at 21:00 Potassium Chloride (Klor-Con 20) 20 meq BID PO Last administered on 12/08/16 09 :19; Admin Dose 20 MEQ; Start 12/05/16 at 21:00 Ondansetron HCl (Zofran Inj) 4 mg Q4H PRN IV NAUSEA AND/OR VOMITING; Start 12/05 at 10:30 Acetaminophen (Tylenol Tab) 650 mg Q6H PRN PO PAIN LEVEL 1-3; Start 12/05/16 at 10:30 Acetaminophen/ Hydrocodone Bitart ([place] (5/325)) 1 tab Q6H PRN PO MODERATE PAIN LEVEL 4-6 Last administered on 12/05/16 20:15; Admin Dose 1 TAB; Start 12/05 at 10:30 Morphine Sulfate (morphine) 1 mg Q4H PRN IV SEVERE PAIN LEVEL 7-10; Start at 10:30 Docusate Sodium (Colace) 100 mg Q12H PRN PO CONSTIPATION; Start 12/05/16 at 10: 30 Magnesium Hydroxide (Milk Of Mag) 30 ml DAILY PRN PO CONSTIPATION; Start at 10:30 Bisacodyl (Dulcolax) 5 mg DAILY PRN PO CONSTIPATION; Start 12/05/16 at 10:30 Bisacodyl (Dulcolax Supp) 10 mg DAILY PRN [place] CONSTIPATION; Start 12/05/16 at 10: 30 Zolpidem Tartrate (Ambien) 5 mg QHS PRN PO SLEEP; Start 12/05/16 at 10:30 Famotidine (Pepcid Iv) 20 mg Q24H IV Last administered on 12/07/16 20:31; Admin Dose 20 MG; Start 12/05/16 at 21:00 Miscellaneous Information 1 ea NOTE XX ; Start 12/05/16 at 11:00 Glucose (Glutose) 15 gm Q15M PRN PO DECREASED GLUCOSE; Start 12/05/16 at 11:00 Glucose (Glutose) 22.5 gm Q15M PRN PO DECREASED GLUCOSE; Start 12/05/16 at 11:00 Dextrose (D50w Syringe) 25 ml Q15M PRN IV DECREASED GLUCOSE; Start 12/05/16 at 11:00 Dextrose (D50w Syringe) 50 ml Q15M PRN IV DECREASED GLUCOSE; Start 12/05/16 at 11:00 Glucagon (Glucagen) 1 mg Q15M PRN IM DECREASED GLUCOSE; Start 12/05/16 at 11:00 Glucose (Glutose) 15 gm Q15M PRN BUCCAL DECREASED GLUCOSE; Start 12/05/16 at 11: 00 Carvedilol (Coreg) 3.125 mg BID PO Last administered on 12/08/16 09:20; Admin Dose 3.125 MG; Start 12/05/16 at 22:00 Acetaminophen (Tylenol Tab) 650 mg Q4H PRN PO Temp greater than 99.6F; Start at 11:30 Docusate Sodium (Colace) 100 mg BID PO Last administered on 12/08/16 09:19; Admin Dose 100 MG; Start 12/06/16 at 11:30 Atorvastatin Calcium (Lipitor) 80 mg QHS PO Last administered on 12/07/16 20:32 ; Admin Dose 80 MG; Start 12/06/16 at 21:00 Labetalol HCl (Labetalol) 5 mg Q6H PRN IV ELEVATED SYSTOLIC BP; Start 12/06/16 at 15:00 Clopidogrel Bisulfate (plaVIX) 75 mg DAILY PO Last administered on 12/08/16t 09: 20; Admin Dose 75 MG; Start 12/08/16 at 09:00 Omega Chinchilla DO December 08, 2016 12:15
[2016-12-08] MEDS ORDERED: MAGNESIUM SULFATE 2 GM/50 ML 50 ML IVPB ONE (12:30)
--- NOTE | 2016-12-08 17:29 | CONS ---
Date/Time of Note Date/Time of Note DATE: 12/08/16 TIME: 17:23 Consult Date/Type/Reason Admit Date/Time December 05, 2016 at 10:24 Initial Consult Date 12/06/16 Type of Consultation: Neurology follow up Reason for Consultation Right MCA stroke s/p IV tPA 12/06 Ordering Provider: RICK ESCAMILLA MD Subjective drowsy, able to tolerate PO per family eating more today severe left sided neglect Objective Vital Signs Date Time Temp Pulse Resp B/P Pulse Ox O2 Delivery O2 Flow Rate FiO2 12/08/16 16:57 2.0 12/08/16 16:12 71 12/08/16 15:21 97.5 20 155/69 99 12/08/16 08:30 Nasal Cannula 12/05/16 06:22 60 Intake and Output 12/07/16 12/07/16 12/08/16 15:00 23:00 07:00 Intake Total 60 ml Output Total 335 ml 60 ml Balance -335 ml 0 ml Exam drowsy, easily arousable follows commands on repeat stimulation oriented x3 severe left sided neglect CN: MARIALUISA, right gaze preference, unable to cross past midline to gaze left tongue midline Motor: left arm 1/5, left leg 1/5 flaccid paralysis right arm and leg 5/5 sensory: decreased to left arm and leg but does withdraw to noxious and localizes reflexes 2+ throughout left toe up Results/Medications Result Diagram: 12/07/16 0430 12/07/16 0430 Results 24 hrs Laboratory Tests Test 12/07/16 18:21 12/07/16 20:16 12/08/16 07:29 12/08/16 10:20 Bedside Glucose 130 153 125 B-Type Natriuretic Peptide 4510 H Test 12/08/16 12:15 12/08/16 16:36 Bedside Glucose 137 150 Medications Current Medications Aspirin (Halfprin) 81 mg DAILY PO Last administered on 12/08/16 09:19; Admin Dose 81 MG; Start 12/05/16 at 10:30 Beta Carotene (Ocuvite) 1 tab DAILY PO Last administered on 12/08/16 09:19; Admin Dose 1 TAB; Start 12/05/16 at 10:30 Brimonidine Tartrate (Alphagan P 0.1%) 1 drop BID BOTH EYES Last administered on 12/08/16 09:21; Admin Dose 1 DROP; Start 12/05/16 at 10:30 Cholecalciferol (Vitamin D) 1,000 unit BID PO Last administered on 12/08/16 09: 19; Admin Dose 1,000 UNIT; Start 12/05/16 at 10:30 Clobetasol Propionate (Temovate 0.05% Cr) 1 applic BID TOP Last administered on 12/08/16 09:23; Admin Dose 1 APPLIC; Start 12/05/16 at 10:30 Linagliptin (Tradjenta) 5 mg DAILY PO Last administered on 12/08/16 09:19; Admin Dose 5 MG; Start 12/05/16 at 11:30 Salmeterol Xinafoate/ Fluticasone (Advair 250/50 Diskus) 1 inh BID INH Last administered on 12/08/16 09:21; Admin Dose 1 INH; Start 12/05/16 at 21:00 Potassium Chloride (Klor-Con 20) 20 meq BID PO Last administered on 12/08/16 09 :19; Admin Dose 20 MEQ; Start 12/05/16 at 21:00 Ondansetron HCl (Zofran Inj) 4 mg Q4H PRN IV NAUSEA AND/OR VOMITING; Start 12/05 at 10:30 Acetaminophen (Tylenol Tab) 650 mg Q6H PRN PO PAIN LEVEL 1-3; Start 12/05/16 at 10:30 Acetaminophen/ Hydrocodone Bitart ([place] (5/325)) 1 tab Q6H PRN PO MODERATE PAIN LEVEL 4-6 Last administered on 12/05/16 20:15; Admin Dose 1 TAB; Start 12/05 at 10:30 Morphine Sulfate (morphine) 1 mg Q4H PRN IV SEVERE PAIN LEVEL 7-10; Start at 10:30 Docusate Sodium (Colace) 100 mg Q12H PRN PO CONSTIPATION; Start 12/05/16 at 10: 30 Magnesium Hydroxide (Milk Of Mag) 30 ml DAILY PRN PO CONSTIPATION; Start at 10:30 Bisacodyl (Dulcolax) 5 mg DAILY PRN PO CONSTIPATION; Start 12/05/16 at 10:30 Bisacodyl (Dulcolax Supp) 10 mg DAILY PRN [place] CONSTIPATION; Start 12/05/16 at 10: 30 Zolpidem Tartrate (Ambien) 5 mg QHS PRN PO SLEEP; Start 12/05/16 at 10:30 Famotidine (Pepcid Iv) 20 mg Q24H IV Last administered on 12/07/16 20:31; Admin Dose 20 MG; Start 12/05/16 at 21:00 Miscellaneous Information 1 ea NOTE XX ; Start 12/05/16 at 11:00 Glucose (Glutose) 15 gm Q15M PRN PO DECREASED GLUCOSE; Start 12/05/16 at 11:00 Glucose (Glutose) 22.5 gm Q15M PRN PO DECREASED GLUCOSE; Start 12/05/16 at 11:00 Dextrose (D50w Syringe) 25 ml Q15M PRN IV DECREASED GLUCOSE; Start 12/05/16 at 11:00 Dextrose (D50w Syringe) 50 ml Q15M PRN IV DECREASED GLUCOSE; Start 12/05/16 at 11:00 Glucagon (Glucagen) 1 mg Q15M PRN IM DECREASED GLUCOSE; Start 12/05/16 at 11:00 Glucose (Glutose) 15 gm Q15M PRN BUCCAL DECREASED GLUCOSE; Start 12/05/16 at 11: 00 Carvedilol (Coreg) 3.125 mg BID PO Last administered on 12/08/16 09:20; Admin Dose 3.125 MG; Start 12/05/16 at 22:00 Acetaminophen (Tylenol Tab) 650 mg Q4H PRN PO Temp greater than 99.6F; Start at 11:30 Docusate Sodium (Colace) 100 mg BID PO Last administered on 12/08/16 09:19; Admin Dose 100 MG; Start 12/06/16 at 11:30 Atorvastatin Calcium (Lipitor) 80 mg QHS PO Last administered on 12/07/16 20:32 ; Admin Dose 80 MG; Start 12/06/16 at 21:00 Labetalol HCl (Labetalol) 5 mg Q6H PRN IV ELEVATED SYSTOLIC BP; Start 12/06/16 at 15:00 Clopidogrel Bisulfate (plaVIX) 75 mg DAILY PO Last administered on 12/08/16 09: 20; Admin Dose 75 MG; Start 12/08/16 at 09:00 Assessment/Plan Chief Complaint/Hosp Course 76 year old female with history HTN, HLD, DM, CKD admitted with CHF exacerbation (EF 35-40%) and hypertensive emergency developed sudden onset left sided weakness s/p IV tPA. CTA and MRA confirmed moderate Right MCA stenosis, MRI confirmed infarction right frontal/temporal lobe Right MCA territory likely from distal branch intracranial atherosclerosis. -maintain SBP<140/90 shelter goal -initiate aspirin 81 mg and plavix 75 mg for suspected intracranial atherosclerosis, will continue treat with dual antiplatelet for 90 days, then may continue Plavix 75 mg thereafter continue to monitor for signs of afib, suggest also outpatient cardiac monitoring for afib, if she develops afib then will switch to anticoagulation -check HBA1C, FLP start Lipitor 80 mg qhs for suspected intracranial atherosclerosis -continue speech evaluation, upgrade diet as tolerated -PT/OT continue therapies likely will require SNF -DVT ppx with lovenox -discharge planning for shelter care once medically optimized Problems: LENNY MELGOZA MD December 08, 2016 17:29
[2016-12-08] MEDS: FAMOTIDINE 20 MG INJ IV SCH (21:29)
[2016-12-08] MEDS: ATORVASTATIN 20 MG TAB PO SCH (21:30)
[2016-12-09] VITALS (11 sets, daily range): BP systolic 127–145; BP diastolic 58–74; PULSE 55–66; RESP 16–20
[2016-12-09] MEDS: FUROSEMIDE 20 MG INJ IV SCH (05:54)
[2016-12-09 07:27] LABS: ADD SCAN DIFF NO
[2016-12-09 07:45] LABS: BASOPHILS % 0.4 % (0.0-2.0); EOSINOPHILS # 0.3 10^3/ul (0.0-0.5); EOSINOPHILS % 3.2 % (0.0-7.0); HEMOGLOBIN 12.5 g/dl (12.0-16.0); LYMPHOCYTES # 1.2 10^3/ul (0.8-2.9); LYMPHOCYTES % 14.4 % (15.0-51.0); MEAN CORPUSCULAR HEMOGLOBIN 30.8 pg (29.0-33.0); MEAN CORPUSCULAR HGB CONC 32.9 g/dl (32.0-37.0); MEAN CORPUSCULAR VOLUME 93.6 fl (82.0-101.0); MEAN PLATELET VOLUME 11.4 fl (7.4-10.4); MONOCYTE # 0.5 10^3/ul (0.3-0.9); NEUTROPHIL # 6.1 10^3/ul (1.6-7.5); NEUTROPHILS % 75.8 % (39.0-77.0); PLATELET COUNT 249 10^3/UL (140-415); RED BLOOD COUNT 4.06 10^6/ul (4.20-5.40); RED CELL DISTRIBUTION WIDTH 13.3 % (11.5-14.5); WHITE BLOOD COUNT 8.1 10^3/ul (4.8-10.8)
[2016-12-09] MEDS: INSULIN ASPART [NOVOLOG] 3 ML PEN SC SCH ×4 (07:55→21:00)
[2016-12-09 07:59] LABS: POTASSIUM 4.1 mmol/L (3.5-5.1)
[2016-12-09 08:01] LABS: CREATININE 1.62 mg/dl (0.44-1.00)
[2016-12-09 08:02] LABS: CALCIUM 8.7 mg/dl (8.4-10.2)
[2016-12-09] MEDS: BRIMONIDINE 0.1% 5 ML OPH BOTH EYES SCH ×2 (08:38→20:48)
[2016-12-09] MEDS: POTASSIUM CHLORIDE (SR) 20 MEQ TAB PO SCH ×2 (08:38→20:49)
[2016-12-09] MEDS: SALMETEROL/FLUTICASONE 250/50 INHA INH SCH ×2 (08:38→20:48)
[2016-12-09] MEDS: CLOPIDOGREL 75 MG TAB PO SCH (08:38)
[2016-12-09] MEDS: LINAGLIPTIN 5 MG TABLET PO SCH (08:38)
[2016-12-09] MEDS: BETA CAROTENE/VIT C/E/MIN TAB PO SCH (08:38)
[2016-12-09] MEDS: ASPIRIN (EC) 81 MG TAB PO SCH (08:39)
[2016-12-09] MEDS: DOCUSATE SODIUM 100 MG CAP PO SCH ×2 (08:39→20:55)
[2016-12-09] MEDS: CHOLECALCIFEROL 1,000 UNIT TAB PO SCH ×2 (08:39→20:49)
[2016-12-09] MEDS: ENOXAPARIN 30 MG/0.3 ML SYG SC SCH (08:52)
[2016-12-09] MEDS: CLOBETASOL 0.05% 15 GM CR TOP SCH ×2 (08:53→20:51)
--- NOTE | 2016-12-09 09:48 | RADRPT ---
PROCEDURE: Chest x-ray CLINICAL INDICATION: Shortness of breath TECHNIQUE: Chest single view COMPARISON: 12/05/2016 FINDINGS: There is stable mild cardiomegaly and an sclerotic aortic calcification. There is interval resoluti on of interstitial CHF. No confluent pneumonia seen. Costophrenic angles sharp. Bones are osteope stoney IMPRESSION: 1. Interval resolution of interstitial CHF. 2. Stable cardiomegaly and atherosclerotic aortic calcification RPTAT: HH .Huseyin Stone MD, Date Time Electronically viewed and signed by .Huseyin Stone MD, on 12/09/2016 09:48 .W/
--- NOTE | 2016-12-09 10:48 | PN ---
Date/Time of Note Date/Time of Note DATE: 12/09/16 TIME: 10:16 Assessment/Plan VTE Prophylaxis VTE Prophylaxis Intervention: LMWH Lines/Catheters IV Catheter Type (from Nrs): Saline Lock Urinary Cath still in place: Yes Reason Cath still needed: other (indicate) (to be discontinued ) Assessment/Plan Assessment/Plan 76 year old female withl; 1. 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 CTA and MRA confirmed moderate Right MCA stenosis, MRI confirmed infarction right frontal/temporal lobe Right MCA territory likely from distal branch intracranial atherosclerosis. PT eval pending for ? Acute rehab vs SNF placement Appreciate Neurology recommendations regarding antiplatelets Rx, ASA and Plavix , BP goals <140/90 custodial. Continue high dose Lipitor and BG control 2. Cardiomyopathy and systolic CHF with EF 35%, s/p CHF exacerbation Appreciate recs from Dr Chinchilla On Coreg and CXR much improved this AM Will change lasix to 20 mg po bid 3. Hypertension, s/p hypertensive emergency on admission BP control currently with Bblock 4. Diabetes Mellitus with A1C of 6.6, On Tradjenta and SSI 5. Hyperlipidemia: continue Lipitor 6. Likely CKD and DM +/- hypertensive nephropathy, also with SCOTT Adjust diuretics Monitor UP and renal function D/c rubio today 7. COPD?, continue Advair, patient on Breo as outpatient. 8. Osteoporosis: continue current meds Prophylaxis: Lovenox for DVT ppx and and Pepcid for GI ppx Disposition: PT eval for d/c planning ARU vs SNF at least Subjective 24 Hr Interval Summary Free Text/Dictation Patient awake and MS at baseline Left hemiparesis LUE>LLE CXR much better and respiratory status also much better PT eval pending still Exam/Review of Systems Vital Signs Vitals Vital Signs Date Time Temp Pulse Resp B/P Pulse Ox O2 Delivery O2 Flow Rate FiO2 12/09/16 08:25 55 12/09/16 07:38 98.4 20 145/70 99 12/09/16 02:33 2.0 12/08/16 19:49 Nasal Cannula Intake and Output 12/08/16 12/08/16 12/09/16 15:00 23:00 07:00 Intake Total 150 ml 750 ml Output Total 200 ml 400 ml Balance -50 ml 350 ml Exam Constitutional: alert, oriented, other (left hemiparesis and mild slurred speech ) Psych: nl mood/affect, no complaints Eyes: EOMI, nl conjunctiva Respiratory: clear to auscultation, normal air movement Cardiovascular: nl pulses, regular rate and rhythm Gastrointestinal: non-tender, soft Musculoskeletal: nl extremities to inspection Extremities: normal pulses, other (no edema, clubbing or cyanosis ) 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, focal weakness (left hemiparesis ), nl mental status, other (slightly slurred speech ) Results Result Diagram: 12/09/1618 12/09/1618 Results 24 hrs Laboratory Tests Test 12/08/16 10:20 12/08/16 12:15 12/08/16 16:36 12/08/16 20:38 B-Type Natriuretic Peptide 4510 H Bedside Glucose 137 150 150 Test 12/09/16 06:18 12/09/16 07:50 White Blood Count 8.1 # Red Blood Count 4.06 L Hemoglobin 12.5 Hematocrit 38.0 Mean Corpuscular Volume 93.6 Mean Corpuscular Hemoglobin 30.8 Mean Corpuscular Hemoglobin Concent 32.9 Red Cell Distribution Width 13.3 Platelet Count 249 Mean Platelet Volume 11.4 H Neutrophils % 75.8 Lymphocytes % 14.4 L Monocytes % 6.0 Eosinophils % 3.2 Basophils % 0.4 Nucleated Red Blood Cells % 0.0 Neutrophils # 6.1 Lymphocytes # 1.2 Monocytes # 0.5 Eosinophils # 0.3 Basophils # 0.0 Nucleated Red Blood Cells # 0.0 Sodium Level 136 Potassium Level 4.1 Chloride Level 96 L Carbon Dioxide Level 28 Anion Gap 16 Blood Urea Nitrogen 35 H Creatinine 1.62 H Glucose Level 134 Calcium Level 8.7 Magnesium Level 2.4 Bedside Glucose 135 Medications Medications Current Medications Aspirin (Halfprin) 81 mg DAILY PO Last administered on 12/09/16 08:39; Admin Dose 81 MG; Start 12/05/16 at 10:30 Beta Carotene (Ocuvite) 1 tab DAILY PO Last administered on 12/09/16 08:38; Admin Dose 1 TAB; Start 12/05/16 at 10:30 Brimonidine Tartrate (Alphagan P 0.1%) 1 drop BID BOTH EYES Last administered on 12/09/16 08:38; Admin Dose 1 DROP; Start 12/05/16 at 10:30 Cholecalciferol (Vitamin D) 1,000 unit BID PO Last administered on 12/09/16 08: 39; Admin Dose 1,000 UNIT; Start 12/05/16 at 10:30 Clobetasol Propionate (Temovate 0.05% Cr) 1 applic BID TOP Last administered on 12/09/16 08:53; Admin Dose 1 APPLIC; Start 12/05/16 at 10:30 Linagliptin (Tradjenta) 5 mg DAILY PO Last administered on 12/09/16 08:38; Admin Dose 5 MG; Start 12/05/16 at 11:30 Salmeterol Xinafoate/ Fluticasone (Advair 250/50 Diskus) 1 inh BID INH Last administered on 12/09/16 08:38; Admin Dose 1 INH; Start 12/05/16 at 21:00 Potassium Chloride (Klor-Con 20) 20 meq BID PO Last administered on 12/09/16 08 :38; Admin Dose 20 MEQ; Start 12/05/16 at 21:00 Ondansetron HCl (Zofran Inj) 4 mg Q4H PRN IV NAUSEA AND/OR VOMITING; Start 12/05 at 10:30 Acetaminophen (Tylenol Tab) 650 mg Q6H PRN PO PAIN LEVEL 1-3; Start 12/05/16 at 10:30 Acetaminophen/ Hydrocodone Bitart ([place] (5/325)) 1 tab Q6H PRN PO MODERATE PAIN LEVEL 4-6 Last administered on 12/05/16 20:15; Admin Dose 1 TAB; Start 12/05 at 10:30 Morphine Sulfate (morphine) 1 mg Q4H PRN IV SEVERE PAIN LEVEL 7-10; Start at 10:30 Docusate Sodium (Colace) 100 mg Q12H PRN PO CONSTIPATION; Start 12/05/16 at 10: 30 Magnesium Hydroxide (Milk Of Mag) 30 ml DAILY PRN PO CONSTIPATION; Start at 10:30 Bisacodyl (Dulcolax) 5 mg DAILY PRN PO CONSTIPATION; Start 12/05/16 at 10:30 Bisacodyl (Dulcolax Supp) 10 mg DAILY PRN [place] CONSTIPATION; Start 12/05/16 at 10: 30 Zolpidem Tartrate (Ambien) 5 mg QHS PRN PO SLEEP; Start 12/05/16 at 10:30 Famotidine (Pepcid Iv) 20 mg Q24H IV Last administered on 12/08/16 21:29; Admin Dose 20 MG; Start 12/05/16 at 21:00 Miscellaneous Information 1 ea NOTE XX ; Start 12/05/16 at 11:00 Glucose (Glutose) 15 gm Q15M PRN PO DECREASED GLUCOSE; Start 12/05/16 at 11:00 Glucose (Glutose) 22.5 gm Q15M PRN PO DECREASED GLUCOSE; Start 12/05/16 at 11:00 Dextrose (D50w Syringe) 25 ml Q15M PRN IV DECREASED GLUCOSE; Start 12/05/16 at 11:00 Dextrose (D50w Syringe) 50 ml Q15M PRN IV DECREASED GLUCOSE; Start 12/05/16 at 11:00 Glucagon (Glucagen) 1 mg Q15M PRN IM DECREASED GLUCOSE; Start 12/05/16 at 11:00 Glucose (Glutose) 15 gm Q15M PRN BUCCAL DECREASED GLUCOSE; Start 12/05/16 at 11: 00 Carvedilol (Coreg) 3.125 mg BID PO Last administered on 12/09/16 08:39; Admin Dose 3.125 MG; Start 12/05/16 at 22:00 Acetaminophen (Tylenol Tab) 650 mg Q4H PRN PO Temp greater than 99.6F; Start at 11:30 Docusate Sodium (Colace) 100 mg BID PO Last administered on 12/09/16 08:39; Admin Dose 100 MG; Start 12/06/16 at 11:30 Atorvastatin Calcium (Lipitor) 80 mg QHS PO Last administered on 12/08/16 21:30 ; Admin Dose 80 MG; Start 12/06/16 at 21:00 Labetalol HCl (Labetalol) 5 mg Q6H PRN IV ELEVATED SYSTOLIC BP; Start 12/06/16 at 15:00 Clopidogrel Bisulfate (plaVIX) 75 mg DAILY PO Last administered on 12/09/16 08: 38; Admin Dose 75 MG; Start 12/08/16 at 09:00 Enoxaparin Sodium (Lovenox) 30 mg DAILY SC Last administered on 5/8/17at 08:52 ; Admin Dose 30 MG; Start 12/09/16 at 09:00 Procedures Procedures PROCEDURE: Chest x-ray CLINICAL INDICATION: Shortness of breath TECHNIQUE: Chest single view COMPARISON: 12/05/2016 FINDINGS: There is stable mild cardiomegaly and an sclerotic aortic calcification. There is interval resolution of interstitial CHF. No confluent pneumonia seen. Costophrenic angles sharp. Bones are osteopenic IMPRESSION: 1. Interval resolution of interstitial CHF. 2. Stable cardiomegaly and atherosclerotic aortic calcification RPTAT: HH .Huseyin Stone MD, MD Date Time Electronically viewed and signed by .Huseyin Stone MD, MD on 12/09/2016 09:48 DARRELL MARQUIS December 09, 2016 10:26
[2016-12-09] MEDS: POLYETHYLENE GLYCOL 17 GM PACKET PO SCH (15:09)
--- NOTE | 2016-12-09 15:49 | CONS ---
Date/Time of Note Date/Time of Note DATE: 12/09/16 TIME: 15:48 Assessment/Plan Assessment/Plan Additional Assessment/Plan CVA Acute decompensated systolic congestive heart failure, improved Cardiomyopathy with ejection fraction 35-40% Mitral and tricuspid valve regurgitation Hypertension -Chest x-ray with improvement in pulmonary vascular congestion. Patient currently on p.o. diuretics. Maintain potassium above 4.0 and magnesium above 2.0. Continue antiplatelet therapy and statin therapy. Creatinine rising, would hold off on initiation of ABDIEL inhibitor at the current time. Consultation Date/Type/Reason Admit Date/Time December 05, 2016 at 10:24 Initial Consult Date 12/06/16 Type of Consultation: cv Referring Provider: RICK ESCAMILLA MD 24 HR Interval Summary Free Text/Dictation Denies shortness of breath, chest pain, dizziness Exam/Review of Systems Vital Signs Vitals Vital Signs Date Time Temp Pulse Resp B/P Pulse Ox O2 Delivery O2 Flow Rate FiO2 12/09/16 15:26 97.8 62 20 145/66 99 12/09/16 08:00 2.0 12/08/16 19:49 Nasal Cannula Intake and Output 12/08/16 12/08/16 12/09/16 15:00 23:00 07:00 Intake Total 150 ml 750 ml Output Total 200 ml 400 ml Balance -50 ml 350 ml Exam No apparent distress Constitutional: alert, oriented Head: normocephalic Respiratory: other (Coarse breath sounds bilaterally, no wheezing) Cardiovascular: other (S1-S2 heard), regular rate and rhythm Gastrointestinal: bowel sounds, non-tender, soft Extremities: other (No edema) Results Result Diagram: 12/09/1618 12/09/1618 Results 24 hrs Laboratory Tests Test 12/08/16 16:36 12/08/16 20:38 12/09/16 06:18 12/09/16 07:50 Bedside Glucose 150 150 135 White Blood Count 8.1 # Red Blood Count 4.06 L Hemoglobin 12.5 Hematocrit 38.0 Mean Corpuscular Volume 93.6 Mean Corpuscular Hemoglobin 30.8 Mean Corpuscular Hemoglobin Concent 32.9 Red Cell Distribution Width 13.3 Platelet Count 249 Mean Platelet Volume 11.4 H Neutrophils % 75.8 Lymphocytes % 14.4 L Monocytes % 6.0 Eosinophils % 3.2 Basophils % 0.4 Nucleated Red Blood Cells % 0.0 Neutrophils # 6.1 Lymphocytes # 1.2 Monocytes # 0.5 Eosinophils # 0.3 Basophils # 0.0 Nucleated Red Blood Cells # 0.0 Sodium Level 136 Potassium Level 4.1 Chloride Level 96 L Carbon Dioxide Level 28 Anion Gap 16 Blood Urea Nitrogen 35 H Creatinine 1.62 H Glucose Level 134 Calcium Level 8.7 Magnesium Level 2.4 Test 12/09/16 11:50 Bedside Glucose 154 Medications Medications Current Medications Aspirin (Halfprin) 81 mg DAILY PO Last administered on 12/09/16 08:39; Admin Dose 81 MG; Start 12/05/16 at 10:30 Beta Carotene (Ocuvite) 1 tab DAILY PO Last administered on 12/09/16 08:38; Admin Dose 1 TAB; Start 12/05/16 at 10:30 Brimonidine Tartrate (Alphagan P 0.1%) 1 drop BID BOTH EYES Last administered on 12/09/16 08:38; Admin Dose 1 DROP; Start 12/05/16 at 10:30 Cholecalciferol (Vitamin D) 1,000 unit BID PO Last administered on 12/09/16 08: 39; Admin Dose 1,000 UNIT; Start 12/05/16 at 10:30 Clobetasol Propionate (Temovate 0.05% Cr) 1 applic BID TOP Last administered on 12/09/16 08:53; Admin Dose 1 APPLIC; Start 12/05/16 at 10:30 Linagliptin (Tradjenta) 5 mg DAILY PO Last administered on 12/09/16 08:38; Admin Dose 5 MG; Start 12/05/16 at 11:30 Salmeterol Xinafoate/ Fluticasone (Advair 250/50 Diskus) 1 inh BID INH Last administered on 12/09/16 08:38; Admin Dose 1 INH; Start 12/05/16 at 21:00 Potassium Chloride (Klor-Con 20) 20 meq BID PO Last administered on 12/09/16 08 :38; Admin Dose 20 MEQ; Start 12/05/16 at 21:00 Ondansetron HCl (Zofran Inj) 4 mg Q4H PRN IV NAUSEA AND/OR VOMITING; Start 12/05 at 10:30 Acetaminophen (Tylenol Tab) 650 mg Q6H PRN PO PAIN LEVEL 1-3; Start 12/05/16 at 10:30 Acetaminophen/ Hydrocodone Bitart ([place] (5/325)) 1 tab Q6H PRN PO MODERATE PAIN LEVEL 4-6 Last administered on 12/05/16 20:15; Admin Dose 1 TAB; Start 12/05 at 10:30 Morphine Sulfate (morphine) 1 mg Q4H PRN IV SEVERE PAIN LEVEL 7-10; Start at 10:30 Docusate Sodium (Colace) 100 mg Q12H PRN PO CONSTIPATION; Start 12/05/16 at 10: 30 Magnesium Hydroxide (Milk Of Mag) 30 ml DAILY PRN PO CONSTIPATION; Start at 10:30 Bisacodyl (Dulcolax) 5 mg DAILY PRN PO CONSTIPATION; Start 12/05/16 at 10:30 Bisacodyl (Dulcolax Supp) 10 mg DAILY PRN [place] CONSTIPATION; Start 12/05/16 at 10: 30 Zolpidem Tartrate (Ambien) 5 mg QHS PRN PO SLEEP; Start 12/05/16 at 10:30 Famotidine (Pepcid Iv) 20 mg Q24H IV Last administered on 12/08/16 21:29; Admin Dose 20 MG; Start 12/05/16 at 21:00 Miscellaneous Information 1 ea NOTE XX ; Start 12/05/16 at 11:00 Glucose (Glutose) 15 gm Q15M PRN PO DECREASED GLUCOSE; Start 12/05/16 at 11:00 Glucose (Glutose) 22.5 gm Q15M PRN PO DECREASED GLUCOSE; Start 12/05/16 at 11:00 Dextrose (D50w Syringe) 25 ml Q15M PRN IV DECREASED GLUCOSE; Start 12/05/16 at 11:00 Dextrose (D50w Syringe) 50 ml Q15M PRN IV DECREASED GLUCOSE; Start 12/05/16 at 11:00 Glucagon (Glucagen) 1 mg Q15M PRN IM DECREASED GLUCOSE; Start 12/05/16 at 11:00 Glucose (Glutose) 15 gm Q15M PRN BUCCAL DECREASED GLUCOSE; Start 12/05/16 at 11: 00 Carvedilol (Coreg) 3.125 mg BID PO Last administered on 12/09/16 08:39; Admin Dose 3.125 MG; Start 12/05/16 at 22:00 Acetaminophen (Tylenol Tab) 650 mg Q4H PRN PO Temp greater than 99.6F; Start at 11:30 Docusate Sodium (Colace) 100 mg BID PO Last administered on 12/09/16 08:39; Admin Dose 100 MG; Start 12/06/16 at 11:30 Atorvastatin Calcium (Lipitor) 80 mg QHS PO Last administered on 12/08/16 21:30 ; Admin Dose 80 MG; Start 12/06/16 at 21:00 Labetalol HCl (Labetalol) 5 mg Q6H PRN IV ELEVATED SYSTOLIC BP; Start 12/06/16 at 15:00 Clopidogrel Bisulfate (plaVIX) 75 mg DAILY PO Last administered on 12/09/16 08: 38; Admin Dose 75 MG; Start 12/08/16 at 09:00 Enoxaparin Sodium (Lovenox) 30 mg DAILY SC Last administered on 12/09/16 08:52 ; Admin Dose 30 MG; Start 12/09/16 at 09:00 Polyethylene Glycol (Miralax) 17 gm DAILY PO Last administered on 12/09/16 15: 09; Admin Dose 17 GM; Start 12/09/16 at 11:00 Omega Chinchilla DO December 09, 2016 15:49
[2016-12-09] MEDS: FUROSEMIDE 20 MG TAB PO SCH (17:56)
[2016-12-09] MEDS: FAMOTIDINE 20 MG INJ IV SCH (20:48)
[2016-12-09] MEDS: ATORVASTATIN 20 MG TAB PO SCH (20:50)
[2016-12-10] VITALS (11 sets, daily range): BP systolic 107–155; BP diastolic 58–89; PULSE 48–68; RESP 16–20
[2016-12-10] MEDS: ALBUTEROL/IPRATROPIUM (NEB) 3 ML AMP HHN PRN ×2 (01:39→09:36)
[2016-12-10] MEDS: FUROSEMIDE 20 MG TAB PO SCH ×2 (05:16→18:00)
[2016-12-10 07:16] LABS: POTASSIUM 4.3 mmol/L (3.5-5.1)
[2016-12-10 07:18] LABS: CREATININE 1.34 mg/dl (0.44-1.00)
[2016-12-10 07:19] LABS: CALCIUM 8.9 mg/dl (8.4-10.2)
[2016-12-10 07:19] LABS: MAGNESIUM 2.3 mg/dl (1.7-2.5)
[2016-12-10] MEDS: INSULIN ASPART [NOVOLOG] 3 ML PEN SC SCH ×3 (07:53→18:38)
[2016-12-10] MEDS: SALMETEROL/FLUTICASONE 250/50 INHA INH SCH (08:09)
[2016-12-10] MEDS: CLOPIDOGREL 75 MG TAB PO SCH (08:10)
[2016-12-10] MEDS: BETA CAROTENE/VIT C/E/MIN TAB PO SCH (08:10)
[2016-12-10] MEDS: HYDROCODONE/APAP (5/325) TAB PO PRN (08:10)
[2016-12-10] MEDS: ASPIRIN (EC) 81 MG TAB PO SCH (08:11)
[2016-12-10] MEDS: CHOLECALCIFEROL 1,000 UNIT TAB PO SCH (08:11)
[2016-12-10] MEDS: POTASSIUM CHLORIDE (SR) 20 MEQ TAB PO SCH (08:11)
[2016-12-10] MEDS: LINAGLIPTIN 5 MG TABLET PO SCH (08:11)
[2016-12-10] MEDS: DOCUSATE SODIUM 100 MG CAP PO SCH (08:11)
[2016-12-10] MEDS: CLOBETASOL 0.05% 15 GM CR TOP SCH (08:12)
[2016-12-10] MEDS: BRIMONIDINE 0.1% 5 ML OPH BOTH EYES SCH (08:12)
[2016-12-10] MEDS: ENOXAPARIN 30 MG/0.3 ML SYG SC SCH (08:21)
[2016-12-10] MEDS: POLYETHYLENE GLYCOL 17 GM PACKET PO SCH (09:00)
--- NOTE | 2016-12-10 11:21 | PN ---
Date/Time of Note Date/Time of Note DATE: 12/10/16 TIME: 11:09 Assessment/Plan VTE Prophylaxis VTE Prophylaxis Intervention: LMWH Lines/Catheters IV C[facility]ter Type [facility]from [facility] Urinary Cath still in place: No Assessment/Plan Assessment/Plan 76 year old female withl; 1. 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 CTA and MRA confirmed moderate Right MCA stenosis, MRI confirmed infarction right frontal/temporal lobe Right MCA territory likely from distal branch intracranial atherosclerosis. 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 Continue high dose Lipitor and BG control 2. Cardiomyopathy and systolic CHF with EF 35%, s/p CHF exacerbation Appreciate recs from Dr Chinchilla On Coreg and CXR much improved this AM Continue Lasix to 20 mg po bid and decrease Kcl supp to 20 daily for now 3. Hypertension, s/p hypertensive emergency on admission BP control currently with Bblock 4. Diabetes Mellitus with A1C of 6.6, On Tradjenta and SSI 5. Hyperlipidemia: continue Lipitor 6. Likely CKD and DM +/- hypertensive nephropathy, also with SCOTT Renal function better today with lower dose po Lasix 7. COPD?, continue Advair, patient on Breo as outpatient. 8. Osteoporosis: continue current meds Prophylaxis: Lovenox for DVT ppx and and Pepcid for GI ppx Disposition: SNF today with outpatient Cardiology follow up in 2 to 4 weeks. Subjective 24 Hr Interval Summary Free Text/Dictation Patient awake and alert still with some slurred speech and ongoing left Hemiparesis PT yesterday with recs of SNF Renal function better today D/c plan to SNF today, discussed with daughter at bedside Exam/Review of Systems Vital Signs Vitals Vital Signs Date Time Temp Pulse Resp B/P Pulse Ox O2 Delivery O2 Flow Rate FiO2 12/10/16 09:36 98 2.0 12/10/16 09:36 68 20 Nasal Cannula 12/10/16 07:32 98.1 139/89 Intake and Output 12/09/16 12/09/16 12/10/16 15:00 23:00 07:00 Intake Total 200 ml 800 ml 650 ml Output Total 600 ml 1500 ml Balance -400 ml -700 ml 650 ml Exam Constitutional: alert, oriented, other (mild slurred speech ), well developed Head: atraumatic, normocephalic Eyes: EOMI, nl conjunctiva Respiratory: clear to auscultation, normal air movement Cardiovascular: nl pulses, regular rate and rhythm Gastrointestinal: non-tender, soft Musculoskeletal: nl extremities to inspection Extremities: normal pulses, other (no edema, clubbign or cyanosis ) 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, focal weakness (left hemiparesis ), nl mental status, other (mild slurred speech ) Results Result Diagram: 12/09/16 0618 12/10/16 0639 Results 24 hrs Laboratory Tests Test 12/09/16 11:50 12/09/16 17:24 12/09/16 20:12 12/10/16 06:31 Bedside Glucose 154 163 146 Phosphorus Level 5.0 H Magnesium Level 2.3 Test 12/10/16 06:39 12/10/16 07:50 Sodium Level 138 Potassium Level 4.3 Chloride Level 96 L Carbon Dioxide Level 30 Anion Gap 16 Blood Urea Nitrogen 32 H Creatinine 1.34 H Glucose Level 131 Calcium Level 8.9 Bedside Glucose 149 Medications Medications Current Medications Aspirin (Halfprin) 81 mg DAILY PO Last administered on 12/10/16 08:11; Admin Dose 81 MG; Start 12/05/16 at 10:30 Beta Carotene (Ocuvite) 1 tab DAILY PO Last administered on 12/10/16 08:10; Admin Dose 1 TAB; Start 12/05/16 at 10:30 Brimonidine Tartrate (Alphagan P 0.1%) 1 drop BID BOTH EYES Last administered on 12/10/16 08:12; Admin Dose 1 DROP; Start 12/05/16 at 10:30 Cholecalciferol (Vitamin D) 1,000 unit BID PO Last administered on 12/10/16 08: 11; Admin Dose 1,000 UNIT; Start 12/05/16 at 10:30 Clobetasol Propionate (Temovate 0.05% Cr) 1 applic BID TOP Last administered on 12/10/16 08:12; Admin Dose 1 APPLIC; Start 12/05/16 at 10:30 Linagliptin (Tradjenta) 5 mg DAILY PO Last administered on 12/10/16 08:11; Admin Dose 5 MG; Start 12/05/16 at 11:30 Salmeterol Xinafoate/ Fluticasone (Advair 250/50 Diskus) 1 inh BID INH Last administered on 12/10/16 08:09; Admin Dose 1 INH; Start 12/05/16 at 21:00 Ondansetron HCl (Zofran Inj) 4 mg Q4H PRN IV NAUSEA AND/OR VOMITING; Start 12/05 at 10:30 Acetaminophen (Tylenol Tab) 650 mg Q6H PRN PO PAIN LEVEL 1-3; Start 12/05/16 at 10:30 Acetaminophen/ Hydrocodone Bitart ([place] (5/325)) 1 tab Q6H PRN PO MODERATE PAIN LEVEL 4-6 Last administered on 12/10/16 08:10; Admin Dose 1 TAB; Start 12/05 at 10:30 Morphine Sulfate (morphine) 1 mg Q4H PRN IV SEVERE PAIN LEVEL 7-10; Start at 10:30 Docusate Sodium (Colace) 100 mg Q12H PRN PO CONSTIPATION; Start 12/05/16 at 10: 30 Magnesium Hydroxide (Milk Of Mag) 30 ml DAILY PRN PO CONSTIPATION; Start at 10:30 Bisacodyl (Dulcolax) 5 mg DAILY PRN PO CONSTIPATION; Start 12/05/16 at 10:30 Bisacodyl (Dulcolax Supp) 10 mg DAILY PRN [place] CONSTIPATION; Start 12/05/16 at 10: 30 Zolpidem Tartrate (Ambien) 5 mg QHS PRN PO SLEEP; Start 12/05/16 at 10:30 Famotidine (Pepcid Iv) 20 mg Q24H IV Last administered on 12/09/16 20:48; Admin Dose 20 MG; Start 12/05/16 at 21:00 Miscellaneous Information 1 ea NOTE XX ; Start 12/05/16 at 11:00 Glucose (Glutose) 15 gm Q15M PRN PO DECREASED GLUCOSE; Start 12/05/16 at 11:00 Glucose (Glutose) 22.5 gm Q15M PRN PO DECREASED GLUCOSE; Start 12/05/16 at 11:00 Dextrose (D50w Syringe) 25 ml Q15M PRN IV DECREASED GLUCOSE; Start 12/05/16 at 11:00 Dextrose (D50w Syringe) 50 ml Q15M PRN IV DECREASED GLUCOSE; Start 12/05/16 at 11:00 Glucagon (Glucagen) 1 mg Q15M PRN IM DECREASED GLUCOSE; Start 12/05/16 at 11:00 Glucose (Glutose) 15 gm Q15M PRN BUCCAL DECREASED GLUCOSE; Start 12/05/16 at 11: 00 Carvedilol (Coreg) 3.125 mg BID PO Last administered on 12/10/16 08:11; Admin Dose 3.125 MG; Start 12/05/16 at 22:00 Acetaminophen (Tylenol Tab) 650 mg Q4H PRN PO Temp greater than 99.6F; Start at 11:30 Docusate Sodium (Colace) 100 mg BID PO Last administered on 12/10/16 08:11; Admin Dose 100 MG; Start 12/06/16 at 11:30 Atorvastatin Calcium (Lipitor) 80 mg QHS PO Last administered on 12/09/16 20:50 ; Admin Dose 80 MG; Start 12/06/16 at 21:00 Labetalol HCl (Labetalol) 5 mg Q6H PRN IV ELEVATED SYSTOLIC BP; Start 12/06/16 at 15:00 Clopidogrel Bisulfate (plaVIX) 75 mg DAILY PO Last administered on 12/10/16 08: 10; Admin Dose 75 MG; Start 12/08/16 at 09:00 Enoxaparin Sodium (Lovenox) 30 mg DAILY SC Last administered on 12/10/16 08:21 ; Admin Dose 30 MG; Start 12/09/16 at 09:00 Polyethylene Glycol (Miralax) 17 gm DAILY PO Last administered on 12/09/16 15: 09; Admin Dose 17 GM; Start 12/09/16 at 11:00 Potassium Chloride (Klor-Con 20) 20 meq DAILY PO ; Start 12/11/16 at 09:00; Status DARRELL VICENTE December 10, 2016 11:21
--- NOTE | 2016-12-10 11:22 | PDOCDIS ---
Discharge Instructions CONDITION Patient Condition: Stable HOME CARE INSTRUCTIONS: Special Diet: mechanica soft ACTIVITY: Activity Restrictions: Slowly Increase Activity FOLLOW UP/APPOINTMENTS Appointments Follow up with Cardiology in 2 to 4 weeks REFERRALS Other Referrals Need BMP check in 48 to 72 hrs please DARRELL MARQUIS December 10, 2016 11:22
--- NOTE | 2016-12-10 14:52 | CONS ---
Date/Time of Note Date/Time of Note DATE: 12/10/16 TIME: 14:51 Assessment/Plan Assessment/Plan Additional Assessment/Plan CVA Acute decompensated systolic congestive heart failure, improved Cardiomyopathy with ejection fraction 35-40% Mitral and tricuspid valve regurgitation Hypertension -Blood pressure trend stable, with start ABDIEL inhibitor as blood pressure permits will close monitoring of renal function. Continue diuretics and titrate down as needed based on volume status and respiratory status. Continue antiplatelet therapy, statin therapy. Consultation Date/Type/Reason Admit Date/Time December 05, 2016 at 10:24 Initial Consult Date 12/06/16 Type of Consultation: cv Referring Provider: RICK ESCAMILLA MD 24 HR Interval Summary Free Text/Dictation Denies shortness of breath, chest pain, eating lunch Exam/Review of Systems Vital Signs Vitals Vital Signs Date Time Temp Pulse Resp B/P Pulse Ox O2 Delivery O2 Flow Rate FiO2 12/10/16 13:46 55 12/10/16 11:39 98.1 17 107/59 98 12/10/16 09:36 2.0 12/10/16 09:36 Nasal Cannula Intake and Output 12/09/16 12/09/16 12/10/16 15:00 23:00 07:00 Intake Total 200 ml 800 ml 650 ml Output Total 600 ml 1500 ml Balance -400 ml -700 ml 650 ml Exam No apparent distress, eating lunch, following commands Constitutional: alert Head: normocephalic Neck: supple Respiratory: other (Coarse breath sounds bilaterally, no wheezing) Cardiovascular: other (S1-S2 heard), regular rate and rhythm Gastrointestinal: bowel sounds, non-tender, soft Extremities: edema (Trace) Results Result Diagram: 12/09/16 0618 12/10/16 0639 Results 24 hrs Laboratory Tests Test 12/09/16 17:24 12/09/16 20:12 12/10/16 06:31 12/10/16 06:39 Bedside Glucose 163 146 Phosphorus Level 5.0 H Magnesium Level 2.3 Sodium Level 138 Potassium Level 4.3 Chloride Level 96 L Carbon Dioxide Level 30 Anion Gap 16 Blood Urea Nitrogen 32 H Creatinine 1.34 H Glucose Level 131 Calcium Level 8.9 Test 12/10/16 07:50 12/10/16 12:02 Bedside Glucose 149 209 Medications Medications Current Medications Aspirin (Halfprin) 81 mg DAILY PO Last administered on 12/10/16 08:11; Admin Dose 81 MG; Start 12/05/16 at 10:30 Beta Carotene (Ocuvite) 1 tab DAILY PO Last administered on 12/10/16 08:10; Admin Dose 1 TAB; Start 12/05/16 at 10:30 Brimonidine Tartrate (Alphagan P 0.1%) 1 drop BID BOTH EYES Last administered on 12/10/16 08:12; Admin Dose 1 DROP; Start 12/05/16 at 10:30 Cholecalciferol (Vitamin D) 1,000 unit BID PO Last administered on 12/10/16 08: 11; Admin Dose 1,000 UNIT; Start 12/05/16 at 10:30 Clobetasol Propionate (Temovate 0.05% Cr) 1 applic BID TOP Last administered on 12/10/16 08:12; Admin Dose 1 APPLIC; Start 12/05/16 at 10:30 Linagliptin (Tradjenta) 5 mg DAILY PO Last administered on 12/10/16 08:11; Admin Dose 5 MG; Start 12/05/16 at 11:30 Salmeterol Xinafoate/ Fluticasone (Advair 250/50 Diskus) 1 inh BID INH Last administered on 12/10/16 08:09; Admin Dose 1 INH; Start 12/05/16 at 21:00 Ondansetron HCl (Zofran Inj) 4 mg Q4H PRN IV NAUSEA AND/OR VOMITING; Start 12/05 at 10:30 Acetaminophen (Tylenol Tab) 650 mg Q6H PRN PO PAIN LEVEL 1-3; Start 12/05/16 at 10:30 Acetaminophen/ Hydrocodone Bitart ([place] (5/325)) 1 tab Q6H PRN PO MODERATE PAIN LEVEL 4-6 Last administered on 12/10/16 08:10; Admin Dose 1 TAB; Start 12/05 at 10:30 Morphine Sulfate (morphine) 1 mg Q4H PRN IV SEVERE PAIN LEVEL 7-10; Start at 10:30 Docusate Sodium (Colace) 100 mg Q12H PRN PO CONSTIPATION; Start 12/05/16 at 10: 30 Magnesium Hydroxide (Milk Of Mag) 30 ml DAILY PRN PO CONSTIPATION; Start at 10:30 Bisacodyl (Dulcolax) 5 mg DAILY PRN PO CONSTIPATION; Start 12/05/16 at 10:30 Bisacodyl (Dulcolax Supp) 10 mg DAILY PRN [place] CONSTIPATION; Start 12/05/16 at 10: 30 Zolpidem Tartrate (Ambien) 5 mg QHS PRN PO SLEEP; Start 12/05/16 at 10:30 Miscellaneous Information 1 ea NOTE XX ; Start 12/05/16 at 11:00 Glucose (Glutose) 15 gm Q15M PRN PO DECREASED GLUCOSE; Start 12/05/16 at 11:00 Glucose (Glutose) 22.5 gm Q15M PRN PO DECREASED GLUCOSE; Start 12/05/16 at 11:00 Dextrose (D50w Syringe) 25 ml Q15M PRN IV DECREASED GLUCOSE; Start 12/05/16 at 11:00 Dextrose (D50w Syringe) 50 ml Q15M PRN IV DECREASED GLUCOSE; Start 12/05/16 at 11:00 Glucagon (Glucagen) 1 mg Q15M PRN IM DECREASED GLUCOSE; Start 12/05/16 at 11:00 Glucose (Glutose) 15 gm Q15M PRN BUCCAL DECREASED GLUCOSE; Start 12/05/16 at 11: 00 Carvedilol (Coreg) 3.125 mg BID PO Last administered on 12/10/16 08:11; Admin Dose 3.125 MG; Start 12/05/16 at 22:00 Acetaminophen (Tylenol Tab) 650 mg Q4H PRN PO Temp greater than 99.6F; Start at 11:30 Docusate Sodium (Colace) 100 mg BID PO Last administered on 12/10/16 08:11; Admin Dose 100 MG; Start 12/06/16 at 11:30 Atorvastatin Calcium (Lipitor) 80 mg QHS PO Last administered on 12/09/16 20:50 ; Admin Dose 80 MG; Start 12/06/16 at 21:00 Labetalol HCl (Labetalol) 5 mg Q6H PRN IV ELEVATED SYSTOLIC BP; Start 12/06/16 at 15:00 Clopidogrel Bisulfate (plaVIX) 75 mg DAILY PO Last administered on 12/10/16 08: 10; Admin Dose 75 MG; Start 12/08/16 at 09:00 Enoxaparin Sodium (Lovenox) 30 mg DAILY SC Last administered on 12/10/16 08:21 ; Admin Dose 30 MG; Start 12/09/16 at 09:00 Polyethylene Glycol (Miralax) 17 gm DAILY PO Last administered on 12/09/16 15: 09; Admin Dose 17 GM; Start 12/09/16 at 11:00 Potassium Chloride (Klor-Con 20) 20 meq DAILY PO ; Start 12/11/16 at 09:00 Famotidine (Pepcid) 20 mg DAILY PO ; Start 12/11/16 at 09:00 Lisinopril (Zestril) 2.5 mg DAILY PO ; Start 12/11/16 at 09:00 Omega Chinchilla DO December 10, 2016 14:52
--- NOTE | 2016-12-10 16:36 | DS ---
DATE OF ADMISSION: 12/05/2016 DATE OF DISCHARGE: 12/10/2016 ADMITTING PHYSICIAN: Jose Tate MD DISCHARGING PHYSICIAN: Darrell Moreno MD CONSULTANTS ON THIS ADMISSION: 1. Marni Wallace MD and from neurology. 2. Omega Chinchilla DO from cardiology. CHIEF COMPLAINT ON ADMISSION: Shortness of breath. BRIEF HISTORY OF PRESENT ILLNESS: This is a 76-year-old female with history of hypertension, diabet es mellitus, osteoporosis and hypertension, questionable compliance with medication, who presented t o the emergency department with hypertensive emergency, blood pressure up to 208/91 and congestive h eart failure with respiratory distress requiring BiPAP. The patient was admitted to a telemetry bed at first. HOSPITAL COURSE: The patient was admitted to telemetry with congestive heart failure exacerbation a nd respiratory failure as she was requiring BiPAP. She was started on diuresis along with cardiolog y consult with Dr. Chinchilla. Echocardiogram was ordered. Her blood pressure was also being controlle d. Within 24 hours of admission, the patient was noted to have acute onset of slurred speech along with left hemiparesis consistent with acute CVA. Rapid response was called. Code stroke was called . The patient did receive TPA as she was within window and transferred to the intensive care unit. She has currently residual left hemiparesis and some mild slurred speech. Her mental status is sta ble. Her blood pressure is controlled on carvedilol. She has been maintained on Lasix for diuresis . Repeat chest x-ray shows much improvement. Her Lasix has been decreased to 20 mg p.o. b.i.d. and her renal function did improve with a creatinine down to 1.35 while on the oral Lasix. She will be started on lisinopril today 2.5 mg p.o. daily as her blood pressure tolerates and with close monito ring of her renal function. Regarding her antiplatelet treatment, she is on aspirin and Plavix. Th ere are no signs of atrial fibrillation and her echocardiogram is showing cardiomyopathy with EF of around 35%. The patient is also a diabetic. Currently, she has low exercise tolerance given all th e events on this admission, but she is a very good potential for rehabilitation. She will be discha rged to a shelter facility. This was discussed with the patient's family. DISPOSITION: Discharge to shelter facility. DISCHARGE CONDITION: Stable. DISCHARGE DIET: Diabetic, cardiac diet. DISCHARGE ACTIVITY: Physical therapy to be continued. FOLLOWUP: The patient is to follow up with cardiology in 2 to 4 weeks and while at the skilled [facility], she will need a repeat BMP within 2 to 3 days in order to monitor her renal function a nd potassium level. DISCHARGE DIAGNOSES: 1. Acute right MCA cerebrovascular accident, status post IV TPA, currently on antiplatelet therapy. Unfortunately, with residual left hemiparesis and some dysphagia and dysarthria. 2. Cardiomyopathy with systolic dysfunction, status post acute congestive heart failure exacerbatio n, ejection fraction of 35%. 3. Hypertension. 4. Diabetes mellitus. 5. Hyperlipidemia. 6. Chronic kidney disease, status post acute kidney injury. 7. Chronic obstructive pulmonary disease. 8. Osteoporosis. DISCHARGE MEDICATIONS: 1. Tylenol 650 mg p.o. q. 6 hours as needed for pain or fever. 2. DuoNeb 1 puff inhaled every 2 hours as needed for shortness of breath or wheezing. 3. Aspirin 81 mg p.o. daily. 4. Lipitor 80 mg p.o. daily. 5. Ocuvite 1 tab daily. 6. Dulcolax 5 mg p.o. daily as needed for constipation. 7. Dulcolax suppository 10 mg per rectum daily as needed for constipation. 8. Alphagan eyedrops both eyes twice daily. 9. Carvedilol 3.125 mg p.o. b.i.d. 10. Vitamin D 1000 units p.o. twice daily. 11. Temovate twice daily. 12. Plavix 75 mg p.o. daily. 13. Sliding scale insulin. 14. Colace 100 mg p.o. q.12 hours scheduled and 100 mg p.o. q.12 hours as needed. 15. Lovenox 30 mg subcutaneously daily for DVT prophylaxis. 16. Pepcid 20 mg p.o. daily. 17. Lasix 20 mg p.o. b.i.d. 18. Tradjenta 5 mg p.o. daily. 19. Milk of magnesia 30 mL p.o. daily as needed for constipation. 20. MiraLax 17 grams p.o. daily. 21. Potassium chloride 20 mEq p.o. daily as long as patient is on Lasix. 22. Advair 250/50 one puff inhaled twice daily. 23. Lisinopril 2.5 mg p.o. daily. Dictated By: DARRELL FELIX/GRACE Conf#: [id number] DID#: [id number]
[2016-12-11] MEDS ORDERED: POTASSIUM CHLORIDE (SR) 20 MEQ TAB PO SCH (09:00)
[2016-12-11] MEDS ORDERED: FAMOTIDINE 20 MG TAB PO SCH (09:00)
[2016-12-11] MEDS ORDERED: LISINOPRIL 5 MG TAB PO SCH (09:00)
== END 2016-12-10 20:50 | DRG 291 ==
LOC: E/R 04:39 → MS4 10:24 → ICU 12-06 10:08 → TEL 12-07 17:16
PROVIDERS: ADMIT Internal Medicine; ATTEND Internal Medicine
PROC: 4A033R1 Measurement of Arterial Saturation, Peripheral, Percutaneous Approach (ICD-10-PCS; 2016-12-05)
PROC: 5A09357 Assistance with Respiratory Ventilation, Less than 24 Consecutive Hours, Continuous Positive Airway Pressure (ICD-10-PCS; 2016-12-05)
PROC: 3E03317 Introduction of Other Thrombolytic into Peripheral Vein, Percutaneous Approach (ICD-10-PCS; principal; 2016-12-06)
DX: I13.0 Hypertensive heart and chronic kidney disease with heart failure and stage 1 through stage 4 chronic kidney disease, or unspecified chronic kidney disease (principal); I63.511 Cerebral infarction due to unspecified occlusion or stenosis of right middle cerebral artery; J96.01 Acute respiratory failure with hypoxia; N17.9 Acute kidney failure, unspecified; E11.21 Type 2 diabetes mellitus with diabetic nephropathy; R13.10 Dysphagia, unspecified; I08.1 Rheumatic disorders of both mitral and tricuspid valves; I50.23 Acute on chronic systolic (congestive) heart failure; I16.1 Hypertensive emergency; G81.94 Hemiplegia, unspecified affecting left nondominant side; E78.5 Hyperlipidemia, unspecified; M81.0 Age-related osteoporosis without current pathological fracture; N18.3 Chronic kidney disease, stage 3 (moderate); E11.22 Type 2 diabetes mellitus with diabetic chronic kidney disease; E87.6 Hypokalemia; R47.1 Dysarthria and anarthria; I42.9 Cardiomyopathy, unspecified; R29.810 Facial weakness; Z87.891 Personal history of nicotine dependence; Z79.82 Long term (current) use of aspirin
CPT/HCPCS: 36415; 36600; 70450; 70496; 70498; 70544; 70551; 71010; 80048; 80053; 80061; 81003; 82803; 82962; 83036; 83690; 83735; 83880; 84100; 84484; 85025; 85610; 85730; 87081; 87086; 92523; 92526; 92610; 93005; 93306; 94640; 94660; 94664; 96374; 96375; 97110; 97162; 97530; J1940; J1644; J1650; J1815; J2060; J2405; J2997; J3475; Q9967

== ENCOUNTER 2017-01-06 13:56 | Inpatient (IN) | payer OTHER ==
[~2017-01-06] VITALS: Ht 165.1 cm; Wt 70.0 kg
[~2017-01-06 13:56] MED LIST changes: +AMLO-147 PO; +ATOR20TA38 PO; -ATOR40TA68 PO; +FLUT1BLS INHALATION; +TEM15CR5 TOP
[2017-01-06] MEDS ORDERED: ADV25050 INHALATION (15:04)
[2017-01-06] MEDS ORDERED: DEXT38GE15 PO (15:13)
[2017-01-06] MEDS ORDERED: DOCU-159 PO (15:13)
[2017-01-06] MEDS ORDERED: NA P230E RC (15:13)
[2017-01-06] MEDS ORDERED: CRAN425C PO (15:13)
[2017-01-06] MEDS ORDERED: CARV3.12 PO (15:13)
[2017-01-06] MEDS ORDERED: BISA10SU75 PR (15:13)
[2017-01-06] MEDS ORDERED: MAGN400O4 PO (15:17)
[2017-01-06] MEDS ORDERED: POLY17PO6 PO (15:17)
[2017-01-06] MEDS ORDERED: MULT-843 PO (15:17)
[2017-01-06] MEDS ORDERED: LISI2.5T59 PO (15:17)
[2017-01-06] MEDS ORDERED: ENOX30DI10 SQ (15:17)
[2017-01-06] MEDS ORDERED: HYDR-906 PO (15:17)
[2017-01-06] MEDS ORDERED: ATOR80TA75 PO (15:17)
[2017-01-06] MEDS ORDERED: FAMO20TA18 PO (15:20)
[2017-01-06] MEDS ORDERED: ACET-141 PO (15:20)
[2017-01-06] MEDS ORDERED: LINA5TAB PO (15:20)
[2017-01-06] MEDS ORDERED: CLOP75TA27 PO (15:20)
[2017-01-06] MEDS ORDERED: ACET-2047 PO (15:20)
[2017-01-06] MEDS ORDERED: SOD CHLORIDE 0.9% 1,000 ML IV STA (15:23)
[2017-01-06] MEDS ORDERED: ASCO500S2 PO (15:23)
[2017-01-06] MEDS ORDERED: ASCO500C7 PO (15:26)
[2017-01-06] MEDS ORDERED: LEVA0.634 INHALATION (15:26)
[2017-01-06] MEDS ORDERED: IRBE1TAB33 PO ×2 (15:26→15:29)
[2017-01-06] MEDS ORDERED: IRBE150T21 PO (15:27)
[2017-01-06] MEDS ORDERED: HYD25 PO (15:27)
[2017-01-06 16:00] LABS: ADD UMIC YES; URINE BILIRUBIN (Dip) NEGATIVE (NEGATIVE); URINE BLOOD (Dip) NEGATIVE (NEGATIVE); URINE COLOR LT. YELLOW (YELLOW); URINE GLUCOSE (Dip) NEGATIVE (NEGATIVE); URINE KETONES (Dip) NEGATIVE (NEGATIVE); URINE LEUKOCYTE ESTERASE (Dip) 1+ (NEGATIVE); URINE NITRITE (Dip) POSITIVE (NEGATIVE); URINE TOTAL PROTEIN (Dip) NEGATIVE (NEGATIVE); URINE UROBILINOGEN (Dip) 0.2 E.U./dL (0.1-1.0)
[2017-01-06 16:01] LABS: ADD SCAN DIFF NO
[2017-01-06 16:03] LABS: BASOPHILS % 0.5 % (0.0-2.0); EOSINOPHILS # 0.3 10^3/ul (0.0-0.5); EOSINOPHILS % 4.4 % (0.0-7.0); HEMATOCRIT 36.9 % (37.0-47.0); HEMOGLOBIN 12.4 g/dl (12.0-16.0); LYMPHOCYTES # 1.2 10^3/ul (0.8-2.9); LYMPHOCYTES % 18.2 % (15.0-51.0); MEAN CORPUSCULAR HEMOGLOBIN 30.9 pg (29.0-33.0); MEAN CORPUSCULAR HGB CONC 33.6 g/dl (32.0-37.0); MEAN PLATELET VOLUME 10.8 fl (7.4-10.4); MONOCYTE # 0.4 10^3/ul (0.3-0.9); MONOCYTES % 5.9 % (0.0-11.0); NEUTROPHIL # 4.6 10^3/ul (1.6-7.5); NEUTROPHILS % 70.5 % (39.0-77.0); PLATELET COUNT 271 10^3/UL (140-415); RED BLOOD COUNT 4.01 10^6/ul (4.20-5.40); WHITE BLOOD COUNT 6.6 10^3/ul (4.8-10.8)
--- NOTE | 2017-01-06 16:05 | RADRPT ---
PROCEDURE: XR Chest. CLINICAL INDICATION: Abdominal pain. TECHNIQUE: Single frontal view of the chest was obtained. COMPARISON: Chest x-ray 01/11/2015 09:46 p.m. FINDINGS: The soft tissues are normal. There are degenerative osteophytes in the thoracic spine. The left ve ntricle is enlarged. The cardiomediastinal silhouette and hilar structures are normal. The pulmonar y vasculature is normal. There are vascular calcifications and ectasia of the thoracic aorta. The l ungs are clear. The costophrenic angles are normal. IMPRESSION: 1. Cardiomegaly with left ventricular enlargement. 2. Atherosclerosis and ectasia of the thoracic aorta. 3. Spondylosis of the thoracic spine. 4. No convincing evidence of CHF. RPTAT:AAJJ Physician Dion Date Time Electronically viewed and signed by Abdirahman Miguel Physician on 01/06/2017 16:05 TESSIE/
[2017-01-06 16:11] LABS: BACTERIA,URINE MANY; TRANSITIONAL EPI CELLS,URINE OCCASIONAL; URINE RBCS NONE SEEN /HPF (0)
[2017-01-06] MEDS ORDERED: KETOROLAC 15 MG INJ IV STA (16:45)
--- NOTE | 2017-01-06 16:49 | ERA ---
ER Documentation Chief Complaint Date/Time DATE: 01/06/17 TIME: 16:41 Chief Complaint IRREGULAR HEARTBEAT, HEADACHE, WEAKNESS HPI This is a 76-year-old woman brought in by EMS from adult rehab center for complaints of shortness of breath and bradycardia. She was placed on a surveillance monitor while there and pulse went down to the 30s. She had complaints of shortness of breath at the facility and states she has a headache now. She has had no vomiting or diarrhea, no chest pain, no calf or leg swelling. She has had a recent ischemic stroke and has continued left upper extremity paresis. ROS All systems reviewed and are negative except as per history of present illness. Medications Home Meds Reported Medications Irbesartan-Hydrochlorothiazide (Irbesartan-Hydrochlorothiazide) 150-12.5 Mg Tab , 1 TAB PO DAILY, TAB 01/06/17 Levalbuterol Hcl* (Levalbuterol Hcl*) 0.63 Mg/3 Ml Vial.neb, 0.63 MG INHALATION Q6H Y for WHEEZING AND SOB, VIAL 01/06/17 Ascorbic Acid* (Vitamin C*) 500 Mg Capsule.sa, 500 MG PO DAILY, CAP 01/06/17 Acetaminophen* (Acetaminophen*) 500 MG Extra Strength Tablet, 1000 MG PO Q6H Y for MODERATE PAIN LEVEL 4-6, TAB 01/06/17 Acetaminophen* (Acetaminophen*) 650 Mg Tablet, 650 MG PO Q6H Y for MILD PAIN LEVEL 1-3, #30 TAB 01/06/17 Linagliptin (TRADJENTA) 5 Mg Tablet, 5 MG PO DAILY, TAB 01/06/17 Clopidogrel Bisulfate (Clopidogrel) 75 Mg Tablet, 75 MG PO DAILY, #30 TAB 01/06/17 Famotidine* (Famotidine*) 20 Mg Tablet, 20 MG PO DAILY, #30 TAB 01/06/17 Hydrocodone/Acetaminophen ([place] 5-325 Tablet) 1 Each Tablet, 1 TAB PO Q6 Y for PAIN LEVEL 6-10, TAB 01/06/17 Multivits,Ca,Minerals/Iron/FA (Thera M Plus Tablet) 1 Each Tablet, 1 TAB PO DAILY, TAB 01/06/17 Polyethylene Glycol* (Miralax*) 17 Gm Powd.pack, 8.5 GM PO DAILY Y for CONSTIPATION, #30 PACKET 01/06/17 Magnesium Hydroxide* (Milk Of Magnesia*) 400 Mg/5 Ml Oral.susp, 30 ML PO DAILY Y for CONSTIPATION, ML 01/06/17 Enoxaparin Sodium* (Lovenox*) 30 Mg/0.3 Ml Disp.syrin, 30 MG SQ DAILY, SYR 01/06/17 Lisinopril* (Lisinopril*) 2.5 Mg Tablet, 2.5 MG PO DAILY, #30 TAB 01/06/17 Atorvastatin* (Atorvastatin*) 80 Mg Tablet, 80 MG PO QHS, #30 TAB 01/06/17 Dextrose (Glucose Gel) 38 Gm Gel..gram., 38 GM PO PRN Y for BSUGAR BELOW 70 01/06/17 Bisacodyl* (Bisacodyl*) 10 Mg Supp, 10 MG AR DAILY Y for CONSTIPATION, SUPP 01/06/17 Na Phos,M-B/Na Phos,Di-Ba (Fleet Enema Extra) 230 Ml Enema, 230 ML RC Q48H PRN Y for CONSTIPATION, ENEMA 01/06/17 Cranberry Extract (Cranberry) 425 Mg Capsule, 425 MG PO DAILY, CAP 01/06/17 Carvedilol* (Coreg*) 3.125 Mg Tablet, 3.125 MG PO BID, #60 TAB 01/06/17 Docusate Sodium* (Docusate Sodium*) 100 Mg Capsule, 200 MG PO BID, #60 CAP 01/06/17 Salmeterol Xinaf/Fluticasone* (Advair*) 250-50 Diskus Inhaler, 1 INH INHALATION BID, #1 INHALER 01/06/17 Clobetasol Propionate* (Temovate*) 0.05%-15gm Cream..g., 1 APPLIC TOP BID, #1 TUB 12/05/16 Brimonidine Tartrate* (Alphagan P*) 0.1%-15 Ml Opht Drops, 1 DROP BOTH EYES BID , #1 EA INSTILL 1 DROP INTO BOTH EYES TWICE A DAY DIRECTED 12/05/16 Cholecalciferol* (Vitamin D3*) 1,000 Unit Tablet, 1000 UNIT PO BID, TAB 01/11/15 Beta Carotene (A) W-C & E/Min* (Ocuvite*) 1 Tab Tab, 1 TAB PO DAILY, TAB 05/06/14 Aspirin* (Aspirin* EC) 81 Mg Tablet.dr, 81 MG PO DAILY, TAB 05/06/14 Discontinued Reported Medications Hydrochlorothiazide* (Hydrochlorothiazide*) 25 Mg Tab, 25 MG PO DAILY, #30 TAB 01/06/17 Irbesartan* (Irbesartan*) 150 Mg Tablet, 150 MG PO DAILY, TAB 01/06/17 Irbesartan-Hydrochlorothiazide (Irbesartan-Hydrochlorothiazide) 150-12.5 Mg Tab , 1 TAB PO DAILY, TAB 01/06/17 Ascorbic Acid* (Ascorbic Acid*) 500 Mg/5 Ml Syrup, 500 MG PO DAILY, #150 ML 01/06/17 Amlodipine Besylate* (Amlodipine Besylate*) 10 Mg Tablet, 10 MG PO DAILY, #30 TAB 12/05/16 Fluticasone/Vilanterol (Breo Ellipta 200-25 Mcg INH) 1 Each Blst.w.dev, 1 PUFF INHALATION DAILY, #1 INHALER 12/05/16 Atorvastatin Calcium* (Atorvastatin Calcium*) 20 Mg Tablet, 20 MG PO QHS, #30 TAB 12/05/16 Vitamin B Complex* (Vitamin B Complex*) 1 Cap Capsule, 1 CAP PO DAILY, CAP 05/06/14 Saxagliptin Hcl* (Onglyza*) 5 Mg Tablet, 5 MG PO DAILY, TAB 05/06/14 Lisinopril* (Zestril*) 40 Mg Tablet, 40 MG PO DAILY, TAB 05/06/14 Hydrochlorothiazide* (Hydrochlorothiazide*) 25 Mg Tab, 25 MG PO DAILY, TAB 05/06/14 Metformin Hcl* (Metformin Hcl*) 500 Mg Tablet, 1000 MG PO BID, TAB 05/06/14 Brimonidine Tartrate* (Alphagan P*) 0.1%-15 Ml Opht Drops, 1 DROP BOTH EYES BID , EA 05/06/14 Discontinued Scripts Levofloxacin* (Levaquin*) 500 Mg Tablet, 500 MG PO DAILY for 7 Days, TAB Prov:MODESTO PECK MD 01/12/15 Allergies Allergies: Coded Allergies: Penicillins (Unverified Allergy, Unknown, 01/06/17) PMhx/Soc Hypertension, diabetes mellitus, osteoporosis, recent right MCA stroke with left hemiparesis, systolic congestive heart failure with a left ventricular ejection fraction of 35% History of Surgery: Yes (HYSTERCETOMY, 15 YRS AGO BREAST SURGERY) Anesthesia Reaction: Yes Hx Neurological Disorder: No Hx Respiratory Disorders: No Hx Cardiac Disorders: Yes (HTN, HIGH CHOLESTEROL, previous stroke with left- sided deficits) Hx Psychiatric Problems: No Hx Miscellaneous Medical Probl: Yes (CKD, GERD, DM, OSTEOPOROSIS, GLACOMA) Hx Alcohol Use: No Hx Substance Use: No Hx Tobacco Use: No Smoking Status: Never smoker FmHx Family History: diabetes Physical Exam Vitals Vital Signs Date Time Temp Pulse Resp B/P Pulse Ox O2 Delivery O2 Flow Rate FiO2 01/06/17 17:12 72 20 146/79 99 Room Air 01/06/17 14:01 98.8 132 16 218/64 99 Physical Exam GENERAL: Well-developed, well-nourished, appears dehydrated, afebrile HEENT: Dry mucous membranes, pink conjunctiva, no cervical spine tenderness or step-off deformities, no goiter, no jaundice or icterus, extraocular movements intact without pain. No submandibular induration, and no pharyngeal erythema NEURO: Appears confused but able to answer simple questions and follow simple commands, left upper extremity paresis, no facial asymmetry, pupils equal round reactive to light CARDIAC: Regular rate and rhythm, no murmurs rubs or gallops LUNGS: Clear bilaterally no wheezing crackles or stridor ABDOMEN: Soft nontender, no guarding, no rigidity, no rebound, no psoas sign no obturator sign. Normoactive bowel sounds SKIN: Warm and dry to touch, no abrasions, contusions, or hematomas, no lacerations, no ecchymosis, no target lesions, and without ulcers EXTREMITIES: No clubbing cyanosis or edema, calves are bilaterally symmetrical, no Homans sign, no popliteal cord sign. Distal pulses equal and bilateral PSYCH: Normal affect without agitation or irritability Result Diagram: 01/06/17 1430 01/06/17 1600 Results 24 hrs Laboratory Tests Test 01/06/17 14:30 01/06/17 15:30 01/06/17 16:00 White Blood Count 6.610^3/ul Red Blood Count 4.0110^6/ul Hemoglobin 12.4g/dl Hematocrit 36.9% Mean Corpuscular Volume 92.0fl Mean Corpuscular Hemoglobin 30.9pg Mean Corpuscular Hemoglobin Concent 33.6g/dl Red Cell Distribution Width 13.0% Platelet Count 76661^3/UL Mean Platelet Volume 10.8fl Neutrophils % 70.5% Lymphocytes % 18.2% Monocytes % 5.9% Eosinophils % 4.4% Basophils % 0.5% Nucleated Red Blood Cells % 0.0/100WBC Neutrophils # 4.610^3/ul Lymphocytes # 1.210^3/ul Monocytes # 0.410^3/ul Eosinophils # 0.310^3/ul Basophils # 0.010^3/ul Nucleated Red Blood Cells # 0.010^3/ul Urine Color LT. YELLOW Urine Clarity CLEAR Urine pH 5.0 Urine Specific [place] 1.015 Urine Ketones NEGATIVE Urine Nitrite POSITIVE Urine Bilirubin NEGATIVE Urine Urobilinogen 0.2 E.U./dL Urine Leukocyte Esterase 1+ Urine Microscopic RBC NONE SEEN/HPF Urine Microscopic WBC 25-50/HPF Urine Transitional Epithelial Cells OCCASIONAL Urine Bacteria MANY Urine Hemoglobin NEGATIVE Urine Glucose NEGATIVE% Urine Total Protein NEGATIVE Sodium Level 139mmol/L Potassium Level 4.5mmol/L Chloride Level 109mmol/L Carbon Dioxide Level 22mmol/L Anion Gap 13 Blood Urea Nitrogen 29mg/dl Creatinine 0.89mg/dl Glucose Level 98mg/dl Calcium Level 8.1mg/dl Total Bilirubin 0.6mg/dl Direct Bilirubin 0.00mg/dl Indirect Bilirubin 0.6mg/dl Aspartate Amino Transf (AST/SGOT) 30IU/L Alanine Aminotransferase (ALT/SGPT) 41IU/L Alkaline Phosphatase 59IU/L Total Protein 6.3g/dl Albumin 3.9g/dl Globulin 2.40g/dl Albumin/Globulin Ratio 1.62 Lipase 297U/L Current Medications Medications (Trade) Dose Ordered Sig/Alicia Route PRN Reason Start Time Stop Time Status Last Admin Dose Admin Sodium Chloride 1,000 ml @ 1,000 mls/hr Q1H STAT IV 01/06/17 15:23 01/06/17 16:22 DC 01/06/17 15:37 Ceftriaxone Sodium (Rocephin) 50 ml @ 100 mls/hr ONCE ONCE IVPB 01/06/17 17:00 01/06/17 17:29 DC 01/06/17 17:04 Ketorolac Tromethamine (Toradol) 15 mg ONCE STAT IV 01/06/17 16:45 01/06/17 16:51 DC 01/06/17 17:05 Procedures/MDM IV line was established patient was placed on surveillance monitor rhythm strip revealed a normal sinus rhythm at about 80 bpm. Patient was afebrile. EKG performed, read by me revealed a normal sinus rhythm at 86 bpm, normal axis , narrow QRS complex with multiple PVCs, no concerning ST elevation or depression noted. One AP view of the chest performed, read by me reveals no acute infiltrates, normal mediastinum, sharp costophrenic and cardiac borders, no air under the diaphragm. Otherwise unremarkable chest x-ray. For dehydration I administered 1 L normal saline venously and Toradol 15 mg IV for headache. CT scan of the brain was performed that was negative for acute bleed mass or shift. CBC was unremarkable, electrolytes revealed dehydration, liver function tests were normal, troponin was negative. Urine analysis was positive for infection. I treated her here with ceftriaxone 1 g IV. Patient will be admitted to telemetry setting for repeat EKGs and rule out cardiac dysrhythmia. She also has a urinary tract infection I will require IV antibiotics and IV rehydration. Departure Diagnosis: Primary Impression: Cardiac dysrhythmia Qualified Code: I49.9 - Cardiac arrhythmia, unspecified cardiac arrhythmia type Additional Impressions: Acute UTI Dehydration Headache Qualified Code: G44.209 - Acute non intractable tension-type headache Condition: PAUL Nicole MD Jan 06, 2017 16:49
[2017-01-06] MEDS ORDERED: CEFTRIAXONE 1 GM/50 ML (PMX) 50 ML IVPB ONE (17:00)
[2017-01-06 17:06] LABS: ALBUMIN 3.9 g/dl (3.3-4.9); ALBUMIN/GLOBULIN RATIO 1.62; BILIRUBIN,INDIRECT 0.6 mg/dl (0-1.1); BILIRUBIN,TOTAL 0.6 mg/dl (0.2-1.3); CALCIUM 8.1 mg/dl (8.4-10.2); CREATININE 0.89 mg/dl (0.44-1.00); POTASSIUM 4.5 mmol/L (3.5-5.1); TOTAL PROTEIN 6.3 g/dl (6.1-8.1)
--- NOTE | 2017-01-06 17:45 | RADRPT ---
PROCEDURE: CT Brain without contrast. CLINICAL INDICATION: r/o bleed TECHNIQUE: A CT of the brain was performed on a [employer] CT scanner utilizi ng a low dose technique with axial imaging from the skull base through the vertex without IV contras t. Multiplanar reformatted images were made. Images were reviewed on a PACS workstation. The CTDI vol is 44.93 mGy and the DLP is 720.2 mGycm. One or more of the following dose reduction techniques were used: - Automated exposure control. - Adjustment of the mA and/or kV according to patient size. Use of iterative reconstruction technique. COMPARISON: None FINDINGS: There are vascular calcifications in the distal vertebral arteries. There are vascular calcification s in the cavernous and supracavernous portions of the internal carotid arteries. The fourth ventric le is normal in size. The third and lateral ventricles are mildly dilated with proportional sulcal dilatation noted. There are chronic small vessel ischemic changes in the periventricular white magdy er tracts to the frontal horns of the lateral ventricles. There is a area of encephalomalacia in th e dorsal right frontal lobe area. There is a 9 mm area of increased attenuation noted along the douglas leydi aspect at the site of encephalomalacia at the level of the right centrum semiovale. There is no evidence of transtentorial or softball seen herniation. The visible portions of the globes and extraocular muscles are normal. The paranasal sinuses are cl ear. The mastoid air cells and internal auditory canals are normal. The bony calvarium is intact. IMPRESSION: 1. Interval development of encephalomalacia from an old right middle cerebral artery infarct previo usly identified on this CT brain dated 12/07/2016 involving the dorsal aspect of the right frontal o f and portions of the ventral aspect of the right parietal lobe. 2. In the cortex of the right frontal opercula, there is an area of increased attenuation which cou ld be the result of hemorrhage or cortical gliosis with calcification. An MRI can be performed witho ut contrast to exclude hemorrhage if needed. This area of increased attenuation is not identified on 12/07/2016 jose 3. There are atherosclerotic vascular calcifications in the distal vertebral arteries, cavernous an d supracavernous portions of the internal carotid arteries were for mild cerebral and cerebellar atr ophy with chronic small vessel ischemic changes in the periventricular white matter tracts adjacent to the lateral ventricles. 4. Empty sella. 5. Findings were phoned to Dr. Lopez. RPTAT:AAJJ Physician Dion Date Time Electronically viewed and signed by Abdirahman Miguel Physician on 01/06/2017 17:45 JM/
[2017-01-06 21:47] VITALS: PULSE 80
[2017-01-06 22:13] VITALS: Ht 165.1 cm; Wt 70.0 kg
[2017-01-06 22:17] VITALS: BP 178/72; PULSE 83; RESP 18
[2017-01-06] MEDS ORDERED: LEVALBUTEROL (NEB) 0.63 MG/3 ML AMP HHN PRN (23:30)
[2017-01-06] MEDS ORDERED: BISACODYL 10 MG SUPP PR PRN (23:30)
[2017-01-06] MEDS ORDERED: MAGNESIUM HYDROXIDE 30ML CUP PO PRN (23:30)
[2017-01-06] MEDS ORDERED: GLUCOSE GEL 15 GRAM TUBE BUCCAL PRN (23:45)
[2017-01-06] MEDS ORDERED: DEXTROSE 50% 50 ML SYRINGE IV PRN ×2 (23:45)
[2017-01-06] MEDS ORDERED: GLUCAGON 1 MG INJ IM PRN (23:45)
[2017-01-06] MEDS ORDERED: GLUCOSE GEL 15 GRAM TUBE PO PRN ×2 (23:45)
[2017-01-06 23:51] VITALS: BP 166/86; RESP 19
[2017-01-07] VITALS (12 sets, daily range): BP systolic 131–183; BP diastolic 63–86; PULSE 68–85; RESP 18–20
[2017-01-07] MEDS ORDERED: ONDANSETRON 4 MG INJ IV PRN
[2017-01-07] MEDS ORDERED: morphine 2 MG INJ IV PRN
[2017-01-07] MEDS: ACCU-CHEK XX SCH (00:24)
[2017-01-07] MEDS: HYDROCODONE/APAP (5/325) TAB PO PRN (00:28)
[2017-01-07] MEDS: LISINOPRIL 20 MG TAB PO SCH ×3 (00:28→21:24)
[2017-01-07] MEDS: LEVOFLOXACIN 500 MG TAB PO SCH (05:48)
[2017-01-07] MEDS: PANTOPRAZOLE (EC) 40 MG TAB PO SCH (05:48)
[2017-01-07 07:32] LABS: ADD SCAN DIFF NO
[2017-01-07 07:39] LABS: BASOPHILS % 0.5 % (0.0-2.0); EOSINOPHILS # 0.3 10^3/ul (0.0-0.5); EOSINOPHILS % 4.8 % (0.0-7.0); HEMATOCRIT 36.4 % (37.0-47.0); HEMOGLOBIN 11.9 g/dl (12.0-16.0); LYMPHOCYTES % 17.2 % (15.0-51.0); MEAN CORPUSCULAR HEMOGLOBIN 30.6 pg (29.0-33.0); MEAN CORPUSCULAR HGB CONC 32.7 g/dl (32.0-37.0); MEAN CORPUSCULAR VOLUME 93.6 fl (82.0-101.0); MEAN PLATELET VOLUME 11.2 fl (7.4-10.4); MONOCYTE # 0.3 10^3/ul (0.3-0.9); MONOCYTES % 5.7 % (0.0-11.0); NEUTROPHIL # 4.1 10^3/ul (1.6-7.5); NEUTROPHILS % 71.5 % (39.0-77.0); PLATELET COUNT 262 10^3/UL (140-415); RED BLOOD COUNT 3.89 10^6/ul (4.20-5.40); RED CELL DISTRIBUTION WIDTH 13.1 % (11.5-14.5); WHITE BLOOD COUNT 5.8 10^3/ul (4.8-10.8)
[2017-01-07] MEDS: INSULIN ASPART [NOVOLOG] 3 ML PEN SC SCH ×4 (07:55→21:00)
[2017-01-07] MEDS ORDERED: NA PHOSPHATE/BIPHOS 133 ML ENEMA PR PRN (08:00)
[2017-01-07 08:18] LABS: CALCIUM 9.1 mg/dl (8.4-10.2); CHOL/HDL RATIO 2.8 RATIO; CREATININE 1.05 mg/dl (0.44-1.00); POTASSIUM 4.4 mmol/L (3.5-5.1)
[2017-01-07] MEDS: DOCUSATE SODIUM 100 MG CAP PO SCH ×2 (08:47→21:20)
[2017-01-07] MEDS: ASPIRIN (EC) 81 MG TAB PO SCH (08:47)
[2017-01-07] MEDS: CLOPIDOGREL 75 MG TAB PO SCH (08:48)
[2017-01-07] MEDS: MULTIVITAMINS/MINERALS TAB PO SCH (08:48)
[2017-01-07] MEDS: BETA CAROTENE/VIT C/E/MIN TAB PO SCH (08:48)
[2017-01-07] MEDS: ACETAMINOPHEN 325 MG TAB PO PRN (08:48)
[2017-01-07] MEDS: CHOLECALCIFEROL 1,000 UNIT TAB PO SCH ×2 (08:52→21:20)
[2017-01-07] MEDS: LINAGLIPTIN 5 MG TABLET PO SCH (08:52)
[2017-01-07] MEDS: BRIMONIDINE 0.1% 5 ML OPH BOTH EYES SCH ×2 (08:52→21:18)
[2017-01-07] MEDS: SALMETEROL/FLUTICASONE 250/50 INHA INH SCH ×2 (08:53→21:19)
[2017-01-07] MEDS: CLOBETASOL 0.05% 15 GM CR TOP SCH ×2 (08:53→12:57)
[2017-01-07] MEDS ORDERED: NON-FORMULARY/PATIENT OWN MED (Cranberry Extract (Cranberry) 425 MG) PO SCH (09:00)
[2017-01-07] MEDS: ENOXAPARIN 30 MG/0.3 ML SYG SC SCH (09:08)
[2017-01-07] MEDS: ASCORBIC ACID 500 MG TAB PO SCH (09:08)
[2017-01-07 09:18] LABS: ALBUMIN 4.2 g/dl (3.3-4.9); BILIRUBIN,INDIRECT 0.3 mg/dl (0-1.1); BILIRUBIN,TOTAL 0.3 mg/dl (0.2-1.3); TOTAL PROTEIN 6.5 g/dl (6.1-8.1)
[2017-01-07] MEDS ORDERED: FLUCONAZOLE 150 MG TAB PO ONE (12:00)
[2017-01-07] MEDS: NYSTATIN 30 GM POWDER BTL TOP SCH ×2 (12:42→21:18)
--- NOTE | 2017-01-07 13:05 | HP ---
DATE OF ADMISSION: 01/06/2017 ADMITTING PHYSICIAN: Dr. Marquis. CHIEF COMPLAINT ON ADMISSION: Transfer from [facility] with hypertensive urgency and bradycardia. HISTORY OF PRESENT ILLNESS: This is a 76-year-old female who was recently discharged from [facility] after being admitted with acute right MCA cerebrovascular accident, cardiomyopat hy with systolic dysfunction and congestive heart failure exacerbation, hypertension, diabetes melli tus, chronic kidney disease, hyperlipidemia, COPD, osteoporosis and [facility]. She does have deep left upper extremity hemipare sis and some moderate hemiparesis, left lower extremity. Apparently, the patient had a change in he r blood pressure medication based on recommendation of outpatient cardiology. Her lisinopril was di scontinued and she was started on irbesartan/hydrochlorothiazide 150/25 every day as of 01/01/2017. Yesterday on the day of admission, she was noted to be hypertensive with systolic blood pressure u p in the 180s and when placed on vehicle monitor technician, her heart rate was reported to drop to 30. The pa marina was complaining of headache. She was therefore sent to the emergency department from the [facility]. In the emergency department upon arrival, and based on the vital signs record ed, the patient was noted to be severely hypertensive with systolic blood pressure up to 218/64 wi th a pulse of 132. She remained on room air. She was complaining of a headache. Her EKG when it w as done showed sinus rhythm in the 80s. There is no reported bradycardia while inpatient. We do no t have the medication she was started on; therefore, her lisinopril is resumed at this point. Based on the fact that there is no bradycardia reported and the patient is a cardiomyopathy patient with EF of 35%, I will be resuming her carvedilol, also with close monitoring of her heart rate while in patient. Her chest x-ray is stable. There are no signs of volume overload; therefore, all diuretic s were discontinued on admission. The CAT scan of the brain was questioning a possible area of hemo rrhage in the right frontal opercula; therefore an MRI has been ordered and pending. The patient th is morning is back to her baseline. She denies any chest pain, shortness of breath, nausea or vomit ing. She is tolerating p.o. very well. She is noted to have left hemiparesis, but she does report that her left lower extremity seems to have regained some function. She still has deep hemiparesis on the left upper extremity. She is still having the headaches on and off, therefore the MRIs again pending and will follow up. She is currently on aspirin and Plavix for secondary prevention. Her blood pressure is better controlled this morning, her systolics are in the 130s. ALLERGIES: PENICILLIN. PAST MEDICAL HISTORY: 1. Osteoporosis. 2. Chronic obstructive pulmonary disease. 3. Chronic kidney disease. 4. Hyperlipidemia. 5. Diabetes mellitus. 6. Hypertension. 7. Cardiomyopathy with systolic dysfunction. Ejection fraction of 35%. 8. Status post acute right middle cerebral artery cerebrovascular accident a month ago with residua l left hemiparesis. PAST SURGICAL HISTORY: Remote history of hysterectomy. SOCIAL HISTORY: The patient is a former smoker. She did quit smoking and she does not use alcohol either. REVIEW OF SYSTEMS: As per HPI. The patient also was complaining of some perineal itching and eryth ruben, but denies dysuria or urinary frequency. OUTPATIENT MEDICATIONS: 1. Advair 250/50 one puff inhaled twice daily. 2. Brimonidine tartrate eyedrops 1 drop to both eyes twice daily. 3. Aspirin 81 mg daily. 4. Cholecalciferol 1000 units p.o. daily. 5. Colace 200 mg p.o. at bedtime. 6. Carvedilol 3.125 mg p.o. b.i.d. 7. Cranberry capsule 1 tab daily. 8. Sliding scale insulin. 9. Dulcolax suppository as needed for constipation daily. 10. Fleet enema as needed for constipation daily. 11. Lipitor 80 mg p.o. at bedtime. 12. Lovenox 30 mg subcutaneously daily. 13. Milk of magnesia 30 mL p.o. daily as needed for constipation. 14. MiraLax 17 grams p.o. every day as needed for constipation. 15. Multivitamin 1 tab p.o. daily. 16. [place] 5/325 one tab p.o. every 6 hours as needed for severe pain. 17. Pepcid 20 mg p.o. daily. 18. Plavix 75 mg p.o. daily. 19. Tradjenta 5 mg p.o. daily. 20. Tylenol 650 mg p.o. every 4 hours as needed for fever or pain. 21. Vitamin C 500 mg p.o. daily. 22. Xopenex 0.63 inhaled every 6 hours as needed for shortness of breath. 23. Irbesartan/HCTZ 150 12.5 mg 1 tab p.o. daily. PHYSICAL EXAMINATION: VITAL SIGNS: Temperature this morning is 98.0, pulse of 70, sinus rhythm; respiratory rate of 20, b lood pressure 138/70, patient is satting 98% on room air. GENERAL: She is alert and oriented x4. Currently, she is in no acute distress. She is eating irene kfast. No dysphagia, no dysarthria noted, just her left hemiparesis. HEENT: Pupils are equally round and reactive to light. Extraocular muscles are intact. Anicteric sclerae. NECK: No JVD, no thyromegaly noted. HEART: Regular rate and rhythm. No bradycardic episode noted since admission or in ER. LUNGS: Clear to auscultation bilaterally. ABDOMEN: Soft, nontender, nondistended. Bowel sounds are present. EXTREMITIES: No edema, clubbing or cyanosis. NEUROLOGIC: She does have left-sided hemiparesis, it is more pronounced left upper extremity which is deep hemiparesis. Her left upper extremity is flaccid. However, on her left lower extremity she has at least 3+ to 4/5 strength, which has been improving. GENITOURINARY: In the perineal area, she does have a pleuritic, slightly erythematous rash. LABORATORY DATA: White blood cell count is 5.8, hemoglobin 11.9, hematocrit 36.4, platelet count of 262. Chemistry with a sodium of 143, potassium 4.4, chloride 107, bicarbonate 26, BUN 29, creatini ne 1.05, glucose of 120, calcium of 9.1. Liver function testing within normal. Cholesterol of 98, LDL of 42. Lipase within normal. INR is 0.98, PT of 13.0, PTT 31.5. Urinalysis shows positive nit rites, +1 leukocyte esterase, many bacteria. EKG done in the emergency department did show sinus rhythm, 80 beats per minute. This is per ER rep ort, the EKG itself is not available currently. RADIOLOGICAL DATA: 1. Chest x-ray shows cardiomegaly with left ventricular enlargement, atherosclerosis and ectasia of the thoracic aorta, spondylosis of the thoracic spine, no convincing evidence of congestive heart f ailure. 2. CAT scan of the brain shows interval development of encephalomalacia from an old right MCA arter y infarct involving the dorsal aspect of the right frontal and portions of the ventral aspect of the right parietal lobe. In the cortex of the right frontal opercula there is an area of increased att enuation which could be the result of hemorrhage or cortical gliosis with calcification, atheroscler otic vascular calcification in the distal vertebral arteries supracavernous portion of the internal carotid arteries, mild cerebral and cerebellar atrophy with chronic small vessel ischemic changes in the periventricular white matter tracts adjacent to the lateral ventricles ____. MRI of the brain is pending at this point. ASSESSMENT AND PLAN: This is a 76-year-old female with: 1. Hypertensive urgency, systolic blood pressure up to 200 upon arrival in reported br[facility] at the [facility] which is not seen during this admission. She has been restarted on lis inopril. All diuretics on hold, as the patient is euvolemic to hypovolemic. Her carvedilol will be restarted today. There is no evidence of bradycardia over the past almost 24 hours she has been on the floor. She does have cardiomyopathy with significant systolic dysfunction, ejection fraction o f 35%. She will be monitored. We will check a magnesium level. Blood pressure is better controlle d this morning. We will continue the current regimen. 2. A CT head with a questionable possible hemorrhage at the area. The patient is complaining of he adaches. Therefore, MRI of the brain without contrast is pending at this time. She has been on ant iplatelet therapy and Lovenox for deep vein thrombosis prophylaxis. Depending on the result, will a ssess with neurology if these agents need to be discontinued. 3. Subacute to chronic old right middle cerebral artery cerebrovascular accident. The patient neur ologically seems to have improved as her dysarthria and dysphagia is resolved and her left hand pare sis seems to be much improved on the left lower extremity, but still has deep hemiparesis and flacci d left upper extremity. Physical therapy will be reordered and to be continued. She has been on an tiplatelets for secondary prevention pending MRI of the brain. 4. Diabetes mellitus. Her outpatient regimen has been restarted, including Tradjenta and sliding s ant insulin. 5. Hyperlipidemia. Fasting lipid panel is within normal. Therefore, her statins will be continued at the current dosage. 6. Chronic obstructive pulmonary disease. Her respiratory status is stable. Continue Advair and X openex as needed. She is on room air. 7. Osteoporosis. Continue multivitamin and other additional vitamins. 8. Chronic kidney disease. Her renal function seems to be stable. We will continue to monitor. A gain, all her diuretics were actually discontinued already at the [facility] as of . 9. Urinary tract infection based on urinalysis and possible Osiris vaginitis based on symptoms; th erefore, the patient has been given a dose of Diflucan 150 mg p.o. daily. Nystatin powder has been ordered. She is on Levaquin for urinary tract infection while awaiting uri ne culture for further tailoring of her antibiotics based on sensitivities. 10. Prophylaxis: Pepcid for gastrointestinal prophylaxis and Lovenox for deep vein thrombosis prop hylaxis. DISPOSITION: The patient is awaiting her MRI to be done. Blood pressure control and monitor heart rate on telemetry and discharge planning in the next 24 to 48 hours if she remains stable and there is no concerning acute findings on MRI or telemetry. Dictated By: DARRELL MARQUIS MD NK/NTS Conf#: [id number] DID#: [id number] CC: DARRELL MARQUIS MD; LASHAY HERRERA MD;*[facility]*
--- NOTE | 2017-01-07 18:40 | RADRPT ---
PROCEDURE: MRI Brain without contrast. CLINICAL INDICATION: Stroke. TECHNIQUE: An MRI of the brain was performed utilizing the following sequences: Sagittal and axial T1 weighted, axial T2 weighted, axial diffusion weighted with ADC mapping, coronal GRE, and axial F LAIR. COMPARISON: Brain CT 01/06/2017. Brain MRI 12/06/2016. FINDINGS: There is 4 mm focal restricted effusion in the left paramedian nina consistent with acute/recent inf arct. There is area of encephalomalacia in the right frontoparietal region consistent with sequela of old infarct with associated gradient susceptibility artifact indicative of hemosiderin. There is no evidence of intracranial hemorrhage, mass effect, or midline shift. No extra-axial fluid collections are seen. The ventricles and sulci are mildly enlarged indicative of volume loss. There are mild to moderate scattered foci of T2 FLAIR hyperintensity in the periventricular, deep, a nd subcortical white matter, which are nonspecific in etiology but likely reflect chronic small vess el ischemic changes. No abnormal intracranial vascular flow void is noted. The visualized paranasal sinuses demonstrate m ild mucosal thickening mainly in ethmoid air cells. Partial opacification of right mastoid air cells are noted. IMPRESSION: 1. A 4 mm focal acute/recent infarct in the left paramedian nina. 2. Encephalomalacia in the right frontoparietal region consistent with sequela of old infarct with associated hemosiderin. 3. Mild to moderate chronic small vessel ischemic changes. 4. Mild generalized cerebral volume loss. 5. Partial opacification of right mastoid air cells. A call report was made and above findings were discussed and acknowledged by patient's nurse KE grady on 01/07/2017 6:35 PM to relay to Beto López. RPTAT: HH .Selvin Orona MD, MD Date Time Electronically viewed and signed by .Selvin Orona MD, MD on 01/07/2017 18:39 .N/
[2017-01-07] MEDS: ATORVASTATIN 80 MG TAB PO SCH (21:19)
[2017-01-08] VITALS (12 sets, daily range): BP systolic 127–173; BP diastolic 63–80; PULSE 73–80; RESP 18–19
[2017-01-08] MEDS: ACCU-CHEK XX SCH (02:00)
[2017-01-08] MEDS: PANTOPRAZOLE (EC) 40 MG TAB PO SCH (05:34)
[2017-01-08] MEDS: LEVOFLOXACIN 500 MG TAB PO SCH (05:34)
[2017-01-08 07:04] LABS: ADD SCAN DIFF NO
[2017-01-08 07:10] LABS: BASOPHILS % 0.1 % (0.0-2.0); EOSINOPHILS # 0.3 10^3/ul (0.0-0.5); EOSINOPHILS % 3.7 % (0.0-7.0); HEMATOCRIT 35.8 % (37.0-47.0); HEMOGLOBIN 11.9 g/dl (12.0-16.0); LYMPHOCYTES # 1.1 10^3/ul (0.8-2.9); LYMPHOCYTES % 15.7 % (15.0-51.0); MEAN CORPUSCULAR HEMOGLOBIN 30.7 pg (29.0-33.0); MEAN CORPUSCULAR HGB CONC 33.2 g/dl (32.0-37.0); MEAN CORPUSCULAR VOLUME 92.5 fl (82.0-101.0); MEAN PLATELET VOLUME 11.2 fl (7.4-10.4); MONOCYTE # 0.4 10^3/ul (0.3-0.9); MONOCYTES % 5.5 % (0.0-11.0); NEUTROPHILS % 74.6 % (39.0-77.0); PLATELET COUNT 267 10^3/UL (140-415); RED BLOOD COUNT 3.87 10^6/ul (4.20-5.40); RED CELL DISTRIBUTION WIDTH 13.1 % (11.5-14.5); WHITE BLOOD COUNT 6.7 10^3/ul (4.8-10.8)
[2017-01-08 07:44] LABS: ALBUMIN 4.2 g/dl (3.3-4.9); ALBUMIN/GLOBULIN RATIO 1.68; BILIRUBIN,INDIRECT 0.6 mg/dl (0-1.1); BILIRUBIN,TOTAL 0.6 mg/dl (0.2-1.3); CALCIUM 9.7 mg/dl (8.4-10.2); CREATININE 1.14 mg/dl (0.44-1.00); POTASSIUM 4.7 mmol/L (3.5-5.1); TOTAL PROTEIN 6.7 g/dl (6.1-8.1)
[2017-01-08] MEDS: INSULIN ASPART [NOVOLOG] 3 ML PEN SC SCH ×4 (07:55→21:00)
[2017-01-08 08:01] LABS: PHOSPHORUS 4.5 mg/dl (2.5-4.9)
[2017-01-08] MEDS: BETA CAROTENE/VIT C/E/MIN TAB PO SCH (08:14)
[2017-01-08] MEDS: CLOPIDOGREL 75 MG TAB PO SCH (08:14)
[2017-01-08] MEDS: MULTIVITAMINS/MINERALS TAB PO SCH (08:14)
[2017-01-08] MEDS: LISINOPRIL 20 MG TAB PO SCH ×2 (08:15→21:29)
[2017-01-08] MEDS: CHOLECALCIFEROL 1,000 UNIT TAB PO SCH ×2 (08:15→21:29)
[2017-01-08] MEDS: LINAGLIPTIN 5 MG TABLET PO SCH (08:15)
[2017-01-08] MEDS: ASPIRIN (EC) 81 MG TAB PO SCH (08:15)
[2017-01-08] MEDS: ASCORBIC ACID 500 MG TAB PO SCH (08:15)
[2017-01-08] MEDS: NYSTATIN 30 GM POWDER BTL TOP SCH ×2 (08:16→21:28)
[2017-01-08] MEDS: BRIMONIDINE 0.1% 5 ML OPH BOTH EYES SCH ×2 (08:16→21:26)
[2017-01-08] MEDS: SALMETEROL/FLUTICASONE 250/50 INHA INH SCH ×2 (08:16→21:28)
[2017-01-08] MEDS: DOCUSATE SODIUM 100 MG CAP PO SCH ×2 (08:17→21:28)
[2017-01-08] MEDS: ENOXAPARIN 30 MG/0.3 ML SYG SC SCH (08:40)
--- NOTE | 2017-01-08 12:16 | CONS ---
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 She is now admitted with hypertensive emergency SBP in 200 range with new acute left paramedian pontine 4 mm lacunar type stroke. Review of prior CTA shows high grade intradural left vertebral artery stenosis, supplies left cerebellum and left brainstem. Suspect the etiology of this new stroke is a lacunar type stroke from advanced atherosclerosis of left vertebral artery and elevated blood pressure. Recommendations: -will obtain also MRA Head without contrast and MRA Neck to evaluate for any progression of intracranial atherosclerosis -for now continue on dual antiplatelet therapy aspirin plus plavix -continue on high dose Lipitor 80 mg qhs LDL at goal -maintain euglycemia -target blood pressure SBP<130 for lacunar stroke -will also recommend a repeat ECHO and cardiology evaluation to optimize medications and continue to monitor on telemetry for afib as this would change our management -DVT ppx -PT/OT/Speech will follow Problems: Consultation Date/Type/Reason Admit Date/Time Jan 06, 2017 at 17:36 Date of Consultation: Jan 08, 2017 Type of Consultation: Neurology Reason for Consultation recent Right MCA CVA with new left pontine stroke Referring Provider: DARRELL MARQUIS Hx of Present Illness 76 year old female known to me from prior admission with recent Right MCA CVA received IV tPA was admitted for cardiomyopathy and CHF exacerbation on 12/05, also with history of HTN, DM, CKD, HLD was residing in a SNF for post CVA care admitted with hypertensive emergency. On previous admission she developed Right MCA syndrome received IV tPA, was not a candidate for any intervention as no large vessel occlusion were seen. Images were suggestive of Right MCA branch stenosis as well as high grade left vertebral intradural stenosis. Since admission her anti-hypertensives were being adjusted by outpatient cardiology, BP noted to be elevated up to 180s at nursing facility she was complaining of increasing left sided weakness with headache. On admission to ER SBP elevated to 200 range. MRI Brain was ordered which showed chronic hemorrhage from prior stroke as well as a new left paramedian pontine stroke 4 mm. Etiology of previous stroke on prior admission was suspected to be secondary to intracranial atherosclerosis given multiple vessel stenosis seen on CTA. She was placed on dual antiplatelet therapy for secondary stroke prevention per SAMMPRIS trial recommendations. weakness left arm and leg numbness and headache Social History Smoking Status: Never smoker Exam/Review of Systems Vital Signs Vitals Vital Signs Date Time Temp Pulse Resp B/P Pulse Ox O2 Delivery O2 Flow Rate FiO2 01/08/17 11:10 98.4 75 18 133/63 94 01/07/17 04:44 21 01/06/17 22:17 Room Air Intake and Output 01/07/17 01/07/17 01/08/17 15:00 23:00 07:00 Intake Total 480 ml 350 ml Output Total 400 ml Balance 80 ml 350 ml Exam awake and alert oriented to hospital self and date oriented to family NAD CN: MARIALUISA, VFF, Left UMN facial weakness, palate upgoing uvula midline scm/trap intact Motor 0/5 strength on left arm, left leg 3/5 can briefly lift anti-gravity with drift to the bed after couple seconds Sensory decreased to left arm and leg Coordination unable to perform on left due to weakness Results Result Diagram: 01/08/1761101/08/17611 Results 24 hrs Laboratory Tests Test 01/07/17 12:29 01/07/17 17:42 01/07/17 21:16 01/08/17 06:12 Bedside Glucose 158 110 127 White Blood Count 6.7 Red Blood Count 3.87 L Hemoglobin 11.9 L Hematocrit 35.8 L Mean Corpuscular Volume 92.5 Mean Corpuscular Hemoglobin 30.7 Mean Corpuscular Hemoglobin Concent 33.2 Red Cell Distribution Width 13.1 Platelet Count 267 Mean Platelet Volume 11.2 H Neutrophils % 74.6 Lymphocytes % 15.7 Monocytes % 5.5 Eosinophils % 3.7 Basophils % 0.1 Nucleated Red Blood Cells % 0.0 Neutrophils # 5.0 Lymphocytes # 1.1 Monocytes # 0.4 Eosinophils # 0.3 Basophils # 0.0 Nucleated Red Blood Cells # 0.0 Sodium Level 141 Potassium Level 4.7 Chloride Level 105 Carbon Dioxide Level 27 Anion Gap 14 Blood Urea Nitrogen 24 H Creatinine 1.14 H Glucose Level 116 Calcium Level 9.7 Phosphorus Level 4.5 Magnesium Level 2.0 Total Bilirubin 0.6 Direct Bilirubin 0.00 Indirect Bilirubin 0.6 Aspartate Amino Transf (AST/SGOT) 25 Alanine Aminotransferase (ALT/SGPT) 38 Alkaline Phosphatase 69 Total Protein 6.7 Albumin 4.2 Globulin 2.50 Albumin/Globulin Ratio 1.68 Test 01/08/17 07:57 Bedside Glucose 121 Medications Medications Current Medications Acetaminophen (Tylenol Tab) 650 mg Q6H PRN PO MILD PAIN LEVEL 1-3 Last administered on 01/07/17 08:48; Admin Dose 650 MG; Start 01/06/17 at 23:30 Ascorbic Acid (Vitamin C) 500 mg DAILY PO Last administered on 01/08/17 08:15; Admin Dose 500 MG; Start 01/07/17 at 09:00 Aspirin (Halfprin) 81 mg DAILY PO Last administered on 01/08/17 08:15; Admin Dose 81 MG; Start 01/07/17 at 09:00 Atorvastatin Calcium (Lipitor) 80 mg QHS PO Last administered on 01/07/17 21:19 ; Admin Dose 80 MG; Start 01/07/17 at 21:00 Beta Carotene (Ocuvite) 1 tab DAILY PO Last administered on 01/08/17 08:14; Admin Dose 1 TAB; Start 01/07/17 at 09:00 Bisacodyl (Dulcolax Supp) 10 mg DAILY PRN [place] CONSTIPATION; Start 01/06/17 at 23: 30 Brimonidine Tartrate (Alphagan P 0.1%) 1 drop BID BOTH EYES Last administered on 01/08/17 08:16; Admin Dose 1 DROP; Start 01/07/17 at 09:00 Cholecalciferol (Vitamin D) 1,000 unit BID PO Last administered on 01/08/17 08: 15; Admin Dose 1,000 UNIT; Start 01/07/17 at 09:00 Clopidogrel Bisulfate (plaVIX) 75 mg DAILY PO Last administered on 01/08/17 08: 14; Admin Dose 75 MG; Start 01/07/17 at 09:00 Docusate Sodium (Colace) 200 mg BID PO Last administered on 01/07/17 21:20; Admin Dose 200 MG; Start 01/07/17 at 09:00 Enoxaparin Sodium (Lovenox) 30 mg DAILY SC Last administered on 01/08/17 08:40 ; Admin Dose 30 MG; Start 01/07/17 at 09:00 Acetaminophen/ Hydrocodone Bitart ([place] (5/325)) 1 tab Q6 PRN PO PAIN LEVEL 6- 10 Last administered on 01/07/17 00:28; Admin Dose 1 TAB; Start 01/06/17 at 23:30 Linagliptin (Tradjenta) 5 mg DAILY PO Last administered on 01/08/17 08:15; Admin Dose 5 MG; Start 01/07/17 at 09:00 Magnesium Hydroxide (Milk Of Mag) 30 ml DAILY PRN PO CONSTIPATION; Start at 23:30 Multivitamins/ Minerals (Theragran-M) 1 tab DAILY PO Last administered on 08:14; Admin Dose 1 TAB; Start 01/07/17 at 09:00 Salmeterol Xinafoate/ Fluticasone (Advair 250/50 Diskus) 1 inh BID INH Last administered on 01/08/17 08:16; Admin Dose 1 INH; Start 01/07/17 at 09:00 Sodium Biphosphate/ Sodium Phosphate (Fleet Enema) 133 ml Q48H PRN [place] CONSTIPATION; Start 01/07/17 at 08:00 Pantoprazole (Protonix Tab) 40 mg DAILY@06 PO Last administered on 01/08/17 05: 34; Admin Dose 40 MG; Start 01/07/17 at 06:00 Levofloxacin (Levaquin) 500 mg DAILY@06 PO Last administered on 01/08/17 05:34 ; Admin Dose 500 MG; Start 01/07/17 at 06:00 Ondansetron HCl (Zofran Inj) 4 mg Q6H PRN IV NAUSEA AND/OR VOMITING; Start 01/07 at 00:00 Morphine Sulfate (morphine) 2 mg Q3H PRN IV PAIN; Start 01/07/17 at 00:00 Lisinopril (Zestril) 20 mg BID PO Last administered on 01/08/17 08:15; Admin Dose 20 MG; Start 01/07/17 at 00:00 Hydralazine HCl (Apresoline) 10 mg Q6H PRN PO ELEVATED BLOOD PRESSURE; Start at 00:00 Diagnostic Test (Pha) (Accu-Chek) 1 ea 02 XX ; Start 01/07/17 at 02:00 Miscellaneous Information 1 ea NOTE XX ; Start 01/06/17 at 23:45 Glucose (Glutose) 15 gm Q15M PRN PO DECREASED GLUCOSE; Start 01/06/17 at 23:45 Glucose (Glutose) 22.5 gm Q15M PRN PO DECREASED GLUCOSE; Start 01/06/17 at 23:45 Dextrose (D50w Syringe) 25 ml Q15M PRN IV DECREASED GLUCOSE; Start 01/06/17 at 23:45 Dextrose (D50w Syringe) 50 ml Q15M PRN IV DECREASED GLUCOSE; Start 01/06/17 at 23:45 Glucagon (Glucagen) 1 mg Q15M PRN IM DECREASED GLUCOSE; Start 01/06/17 at 23:45 Glucose (Glutose) 15 gm Q15M PRN BUCCAL DECREASED GLUCOSE; Start 01/06/17 at 23: 45 Nystatin (Nystatin Powder) 1 applic BID TOP Last administered on 01/08/17 08:16 ; Admin Dose 1 APPLIC; Start 01/07/17 at 12:00 Carvedilol (Coreg) 3.125 mg BID PO Last administered on 01/08/17 08:15; Admin Dose 3.125 MG; Start 01/07/17 at 11:30 LENNY MELGOZA MD Jan 08, 2017 12:16
--- NOTE | 2017-01-08 13:07 | CONS ---
Date/Time of Note Date/Time of Note DATE: 01/08/17 TIME: 12:57 Assessment/Plan Assessment/Plan Additional Assessment/Plan Acute left pontine CVA History of right MCA CVA Left vertebral artery stenosis Hypertension Cerebral artery disease Diabetes Cardiomyopathy Paroxysmal atrial tachycardia -Patient with recurrent CVA but now in the left pontine region. On review of previous imaging done in December, history of severe left vertebral stenosis. Etiology of current CVA could be secondary to cerebral artery disease as well as hypertension. On review of telemetry, no evidence of atrial fibrillation. Preliminary bedside echocardiogram with bubble study done with no evidence of ASD/PFO. Would recommend continuing dual antiplatelet therapy, high-dose statin , blood pressure control, continue telemetry monitoring. Would recommend loop recorder if no atrial fibrillation seen on telemetry. Consultation Date/Type/Reason Admit Date/Time Jan 06, 2017 at 17:36 Type of Consultation: cv Reason for Consultation CVA Hx of Present Illness This is a 76-year-old female with recent CVA in December 2016 status post TPA, cardiomyopathy, hypertension who presents back to our facility secondary to uncontrolled hypertension. Patient was treated with medications and on workup was found to have an acute left-sided nina CVA. Cardiology consultation was requested for assistance in evaluation and management. Patient denies any chest pain, shortness of breath, palpitations or dizziness. She still has a left-sided hemiparesis. Her speech and swallowing has improved significantly since her CVA last month. She has been on aspirin and Plavix therapy as per history. 12 point review of systems was performed with all pertinent positives and negatives mentioned above and all else is negative Past Medical History Hypertension CVA Cardiomyopathy Medical History: diabetes Family History Significant Family History: no pertinent family hx Social History Smoking Status: Never smoker Other Social History From facility Exam/Review of Systems Vital Signs Vitals Vital Signs Date Time Temp Pulse Resp B/P Pulse Ox O2 Delivery O2 Flow Rate FiO2 01/08/17 12:23 74 01/08/17 11:10 98.4 18 133/63 94 01/07/17 04:44 21 01/06/17 22:17 Room Air Intake and Output 01/07/17 01/07/17 01/08/17 15:00 23:00 07:00 Intake Total 480 ml 350 ml Output Total 400 ml Balance 80 ml 350 ml Exam Following commands, no apparent distress Constitutional: alert, oriented Head: normocephalic Respiratory: other (Coarse breath sounds bilaterally, no wheezing) Cardiovascular: other (S1-S2 heard), regular rate and rhythm, systolic murmur Gastrointestinal: bowel sounds, non-tender, soft Extremities: edema (Trace) Neurological: other (Left upper extremity weakness) Results Result Diagram: 01/08/17 0612 01/08/17 0612 Results 24 hrs Laboratory Tests Test 01/07/17 17:42 01/07/17 21:16 01/08/17 06:12 01/08/17 07:57 Bedside Glucose 110 127 121 White Blood Count 6.7 Red Blood Count 3.87 L Hemoglobin 11.9 L Hematocrit 35.8 L Mean Corpuscular Volume 92.5 Mean Corpuscular Hemoglobin 30.7 Mean Corpuscular Hemoglobin Concent 33.2 Red Cell Distribution Width 13.1 Platelet Count 267 Mean Platelet Volume 11.2 H Neutrophils % 74.6 Lymphocytes % 15.7 Monocytes % 5.5 Eosinophils % 3.7 Basophils % 0.1 Nucleated Red Blood Cells % 0.0 Neutrophils # 5.0 Lymphocytes # 1.1 Monocytes # 0.4 Eosinophils # 0.3 Basophils # 0.0 Nucleated Red Blood Cells # 0.0 Sodium Level 141 Potassium Level 4.7 Chloride Level 105 Carbon Dioxide Level 27 Anion Gap 14 Blood Urea Nitrogen 24 H Creatinine 1.14 H Glucose Level 116 Calcium Level 9.7 Phosphorus Level 4.5 Magnesium Level 2.0 Total Bilirubin 0.6 Direct Bilirubin 0.00 Indirect Bilirubin 0.6 Aspartate Amino Transf (AST/SGOT) 25 Alanine Aminotransferase (ALT/SGPT) 38 Alkaline Phosphatase 69 Total Protein 6.7 Albumin 4.2 Globulin 2.50 Albumin/Globulin Ratio 1.68 Test 01/08/17 12:07 Bedside Glucose 163 Medications Medications Current Medications Acetaminophen (Tylenol Tab) 650 mg Q6H PRN PO MILD PAIN LEVEL 1-3 Last administered on 01/07/17 08:48; Admin Dose 650 MG; Start 01/06/17 at 23:30 Ascorbic Acid (Vitamin C) 500 mg DAILY PO Last administered on 01/08/17 08:15; Admin Dose 500 MG; Start 01/07/17 at 09:00 Aspirin (Halfprin) 81 mg DAILY PO Last administered on 01/08/17 08:15; Admin Dose 81 MG; Start 01/07/17 at 09:00 Atorvastatin Calcium (Lipitor) 80 mg QHS PO Last administered on 01/07/17 21:19 ; Admin Dose 80 MG; Start 01/07/17 at 21:00 Beta Carotene (Ocuvite) 1 tab DAILY PO Last administered on 01/08/17 08:14; Admin Dose 1 TAB; Start 01/07/17 at 09:00 Bisacodyl (Dulcolax Supp) 10 mg DAILY PRN [place] CONSTIPATION; Start 01/06/17 at 23: 30 Brimonidine Tartrate (Alphagan P 0.1%) 1 drop BID BOTH EYES Last administered on 01/08/17 08:16; Admin Dose 1 DROP; Start 01/07/17 at 09:00 Cholecalciferol (Vitamin D) 1,000 unit BID PO Last administered on 01/08/17 08: 15; Admin Dose 1,000 UNIT; Start 01/07/17 at 09:00 Clopidogrel Bisulfate (plaVIX) 75 mg DAILY PO Last administered on 01/08/17 08: 14; Admin Dose 75 MG; Start 01/07/17 at 09:00 Docusate Sodium (Colace) 200 mg BID PO Last administered on 01/07/17 21:20; Admin Dose 200 MG; Start 01/07/17 at 09:00 Enoxaparin Sodium (Lovenox) 30 mg DAILY SC Last administered on 01/08/17 08:40 ; Admin Dose 30 MG; Start 01/07/17 at 09:00 Acetaminophen/ Hydrocodone Bitart ([place] (5/325)) 1 tab Q6 PRN PO PAIN LEVEL 6- 10 Last administered on 01/07/17 00:28; Admin Dose 1 TAB; Start 01/06/17 at 23:30 Linagliptin (Tradjenta) 5 mg DAILY PO Last administered on 01/08/17 08:15; Admin Dose 5 MG; Start 01/07/17 at 09:00 Magnesium Hydroxide (Milk Of Mag) 30 ml DAILY PRN PO CONSTIPATION; Start at 23:30 Multivitamins/ Minerals (Theragran-M) 1 tab DAILY PO Last administered on 08:14; Admin Dose 1 TAB; Start 01/07/17 at 09:00 Salmeterol Xinafoate/ Fluticasone (Advair 250/50 Diskus) 1 inh BID INH Last administered on 01/08/17 08:16; Admin Dose 1 INH; Start 01/07/17 at 09:00 Sodium Biphosphate/ Sodium Phosphate (Fleet Enema) 133 ml Q48H PRN [place] CONSTIPATION; Start 01/07/17 at 08:00 Pantoprazole (Protonix Tab) 40 mg DAILY@06 PO Last administered on 01/08/17 05: 34; Admin Dose 40 MG; Start 01/07/17 at 06:00 Levofloxacin (Levaquin) 500 mg DAILY@06 PO Last administered on 01/08/17 05:34 ; Admin Dose 500 MG; Start 01/07/17 at 06:00 Ondansetron HCl (Zofran Inj) 4 mg Q6H PRN IV NAUSEA AND/OR VOMITING; Start 01/07 at 00:00 Morphine Sulfate (morphine) 2 mg Q3H PRN IV PAIN; Start 01/07/17 at 00:00 Lisinopril (Zestril) 20 mg BID PO Last administered on 01/08/17 08:15; Admin Dose 20 MG; Start 01/07/17 at 00:00 Hydralazine HCl (Apresoline) 10 mg Q6H PRN PO ELEVATED BLOOD PRESSURE; Start at 00:00 Diagnostic Test (Pha) (Accu-Chek) 1 ea 02 XX ; Start 01/07/17 at 02:00 Miscellaneous Information 1 ea NOTE XX ; Start 01/06/17 at 23:45 Glucose (Glutose) 15 gm Q15M PRN PO DECREASED GLUCOSE; Start 01/06/17 at 23:45 Glucose (Glutose) 22.5 gm Q15M PRN PO DECREASED GLUCOSE; Start 01/06/17 at 23:45 Dextrose (D50w Syringe) 25 ml Q15M PRN IV DECREASED GLUCOSE; Start 01/06/17 at 23:45 Dextrose (D50w Syringe) 50 ml Q15M PRN IV DECREASED GLUCOSE; Start 01/06/17 at 23:45 Glucagon (Glucagen) 1 mg Q15M PRN IM DECREASED GLUCOSE; Start 01/06/17 at 23:45 Glucose (Glutose) 15 gm Q15M PRN BUCCAL DECREASED GLUCOSE; Start 01/06/17 at 23: 45 Nystatin (Nystatin Powder) 1 applic BID TOP Last administered on 01/08/17 08:16 ; Admin Dose 1 APPLIC; Start 01/07/17 at 12:00 Carvedilol (Coreg) 3.125 mg BID PO Last administered on 01/08/17 08:15; Admin Dose 3.125 MG; Start 01/07/17 at 11:30 Hydrocortisone (Hydrocortisone 1% Oint) 1 applic TID TOP ; Start 01/08/17 at 13: 00; Status UNV Procedures Procedures No ECG in the chart Telemetry reviewed with sinus rhythm, brief episodes of paroxysmal atrial tachycardia, frequent PVCs Omega Chinchilla DO Jan 08, 2017 13:07
--- NOTE | 2017-01-08 14:15 | RADRPT ---
PROCEDURE: US Carotids. CLINICAL INDICATION: bruit , cva TECHNIQUE: Multiple sonographic of the carotid bifurcation region and vertebral arteries were obta ined utilizing davis scale, duplex and color-flow imaging. The images were reviewed on a PACS worksta tion. COMPARISON: No prior studies are available for comparison. FINDINGS: Evaluation of the right carotid bifurcation region reveals no significant calcific atherosclerotic d isease. Evaluation of the left carotid bifurcation region reveals mild calcific atherosclerotic disease. There is antegrade flow within the vertebral arteries bilaterally. RIGHT CAROTID MEASUREMENTS: Common Carotid Peqvan47.3 (cm/sec) Internal Carotid Artery - jshtrdec31.1 (cm/sec) Internal Carotid Artery - mid51.4 (cm/sec) Internal Carotid Artery - rnvofg82.6 (cm/sec) Internal Carotid/Common Carotid1.61 LEFT CAROTID MEASUREMENTS: Common Carotid Nootun95.8 (cm/sec) Internal Carotid Artery - [id number] (cm/sec) Internal Carotid Artery - mid39.5 (cm/sec) Internal Carotid Artery - .2 (cm/sec) Internal Carotid/Common Carotid0.98 RPTAT: AA IMPRESSION: No evidence for hemodynamically significant stenosis in the bilateral internal carotid arteries - va lidated velocity measurements with angiographic measurements, velocity criteria are extrapolated fro m diameter data as defined by the Society of Radiologists in Ultrasound Consensus Conference Radiolo gy 2003; 229;340-346. This study does indirectly reference the measurement of the distal ICA diamet er as the denominator for stenosis measurement. Normal antegrade flow in the vertebral arteries bilaterally. .Valentin Munguia MD, Date Time Electronically viewed and signed by .Valentin Munguia MD, MD on 01/08/2017 14:15 .S/
[2017-01-08] MEDS: HYDROCORTISONE 1% 28.35 GM OINT TOP SCH ×2 (14:18→21:25)
[2017-01-08] MEDS: ACETAMINOPHEN 325 MG TAB PO PRN (14:24)
--- NOTE | 2017-01-08 21:17 | RADRPT ---
PROCEDURE: MRA Neck without contrast. CLINICAL INDICATION: Stroke. TECHNIQUE: An MRA of the major cervical arteries was performed utilizing axial 2D time of flight, 3-D [id number] through the carotid bifurcations, and dynamic contrast enhanced 3-D MR angiograph y technique. Source and MIP images were reviewed. COMPARISON: Neck CTA 12/06/2016. FINDINGS: The origins of the great vessels off the aortic arch are patent without significant stenosis. The c ommon carotid and internal carotid arteries are patent without hemodynamically significant stenosis by NASCET criteria. Direct measurements of vessel diameters was made in reference to measurements of the distal internal carotid artery diameter. The right vertebral artery is dominant. Bilateral ve rtebral arteries are otherwise patent without high-grade stenosis. Multinodular goiter is again noted. IMPRESSION: 1. Patent major neck arteries. 2. Multinodular goiter, consider ultrasound for further evaluation as clinically warranted. RPTAT: HFN .Selvin Orona MD, Date Time Electronically viewed and signed by .Selvin Orona MD, on 01/08/2017 21:16 .N/
[2017-01-08] MEDS: ATORVASTATIN 80 MG TAB PO SCH (21:29)
--- NOTE | 2017-01-08 21:34 | RADRPT ---
PROCEDURE: MRA Brain. CLINICAL INDICATION: Stroke. TECHNIQUE: An MRA of the brain was performed without intravenous contrast utilizing the following sequences: 3-D [id number] images through the intracranial vasculature with post processed alma l intensity projections in multiple planes. COMPARISON: Brain MRI 01/07/2017. Brain MRA 12/06/2016. FINDINGS: Multiple images are degraded by motion. There are mild stenosis of cavernous and supraclinoid segments internal carotid artery. There is mo derate to severe stenosis of the cavernous segment of the left internal carotid artery. The petrous internal carotid artery segments are patent without evidence of significant stenosis. There is decreased flow related enhancement of the distal M1 and proximal M2 segments of right middl e cerebral artery concerning for moderate stenosis. The proximal anterior cerebral and left middle c erebral artery are patent without significant stenosis. There is predominant origin of right posterior cerebral artery with hypoplastic right P1 segme nt which are anatomical variation. There is significant decreased flow related enhancement of the le ft intradural vertebral artery concerning for severe stenosis. There is moderate stenosis of the dis miriam basilar artery. There is mild to moderate narrowing of the P2 segment of left posterior cerebral artery. The right intradural vertebral artery and remainder posterior cerebral arteries are patent without evidence of significant focal stenosis. No aneurysms are identified. IMPRESSION: 1. Suboptimal motion degraded study. 2. Moderate to severe stenosis of the cavernous segment of the left internal carotid artery. Mild s tenosis of right cavernous and supraclinoid segments of the right internal carotid artery. 3. Moderate stenosis of distal M1 and proximal M2 segments of the right middle cerebral artery. 3. Severe stenosis of left intradural vertebral artery. 4. Moderate stenosis of the distal basilar artery. 5. Mild to moderate narrowing of the P2 segment of left posterior cerebral artery. RPTAT: HFN .Selvin Orona MD, MD Date Time Electronically viewed and signed by .Selvin Orona MD, MD on 01/08/2017 21:34 .N/
[2017-01-09] VITALS (13 sets, daily range): BP systolic 115–186; BP diastolic 57–97; PULSE 66–78; RESP 17–20
[2017-01-09] MEDS: ACCU-CHEK XX SCH (02:00)
[2017-01-09] MEDS: HYDROCODONE/APAP (5/325) TAB PO PRN (02:02)
[2017-01-09] MEDS: LEVOFLOXACIN 500 MG TAB PO SCH (05:36)
[2017-01-09] MEDS: PANTOPRAZOLE (EC) 40 MG TAB PO SCH (05:36)
[2017-01-09 06:43] LABS: MAGNESIUM 1.9 mg/dl (1.7-2.5); PHOSPHORUS 4.6 mg/dl (2.5-4.9)
[2017-01-09 06:46] LABS: ALBUMIN/GLOBULIN RATIO 1.81; BILIRUBIN,INDIRECT 0.5 mg/dl (0-1.1); BILIRUBIN,TOTAL 0.5 mg/dl (0.2-1.3); CREATININE 1.17 mg/dl (0.44-1.00); TOTAL PROTEIN 6.2 g/dl (6.1-8.1)
[2017-01-09] MEDS: INSULIN ASPART [NOVOLOG] 3 ML PEN SC SCH ×4 (07:52→20:47)
[2017-01-09] MEDS: CLOPIDOGREL 75 MG TAB PO SCH (08:43)
[2017-01-09] MEDS: MULTIVITAMINS/MINERALS TAB PO SCH (08:43)
[2017-01-09] MEDS: LISINOPRIL 20 MG TAB PO SCH ×2 (08:43→20:46)
[2017-01-09] MEDS: CHOLECALCIFEROL 1,000 UNIT TAB PO SCH ×2 (08:43→20:44)
[2017-01-09] MEDS: LINAGLIPTIN 5 MG TABLET PO SCH (08:43)
[2017-01-09] MEDS: ASCORBIC ACID 500 MG TAB PO SCH (08:44)
[2017-01-09] MEDS: ASPIRIN (EC) 81 MG TAB PO SCH (08:44)
[2017-01-09] MEDS: BETA CAROTENE/VIT C/E/MIN TAB PO SCH (08:44)
[2017-01-09] MEDS: NYSTATIN 30 GM POWDER BTL TOP SCH ×2 (08:46→20:47)
[2017-01-09] MEDS: HYDROCORTISONE 1% 28.35 GM OINT TOP SCH ×3 (08:46→20:47)
[2017-01-09] MEDS: BRIMONIDINE 0.1% 5 ML OPH BOTH EYES SCH ×2 (08:46→20:47)
[2017-01-09] MEDS: SALMETEROL/FLUTICASONE 250/50 INHA INH SCH ×2 (08:46→20:46)
[2017-01-09] MEDS: DOCUSATE SODIUM 100 MG CAP PO SCH ×2 (09:00→20:44)
[2017-01-09] MEDS: ENOXAPARIN 30 MG/0.3 ML SYG SC SCH (09:05)
--- NOTE | 2017-01-09 12:00 | PN ---
Date/Time of Note Date/Time of Note DATE: 01/09/17 TIME: 11:50 Assessment/Plan VTE Prophylaxis VTE Prophylaxis Intervention: SCD's Lines/Catheters IV [facility]ter [facility]from [facility] Urinary Cath still in place: No Assessment/Plan Assessment/Plan 76-year-old female: 1. S/p Hypertensive urgency, BP better controlled now No bradycardia here, back on Coreg Continue current meds 2. Acute left nina CVA with also known chronic right middle cerebral artery CVA on MRI overnight with left vertebral artery severe stenosis Continue current antiplatelets for now and Cardio to review Tele strips for ? A fib episode overnight ... Neurology and Cardiology following Continue with meds MRA unchanged with severe stenosis intracranial segment of left vertebral artery 3. Diabetes mellitus. Back on Tradjenta and sliding scale insulin. 4. Hyperlipidemia. Fasting lipid panel is within normal. Continue Lipitor. 5. Chronic obstructive pulmonary disease. Continue Advair and Xopenex as needed. She is on room air. 6. Osteoporosis. Continue multivitamin and other additional vitamins. 7. Chronic kidney disease. Her renal function seems to be stable. We will continue to monitor. Again, all her diuretics were actually discontinued already at the custodial facility as of 12/31/2016. 8. Urinary tract infection based on urinalysis and Osiris albicans on Urine cx and Osiris vaginitis based on symptoms. Will give a second dose of Diflucan 150 mg p.o x1 and continue Nystatin powder D/c Levaquin. Prophylaxis: Pepcid for gastrointestinal prophylaxis and Lovenox for deep vein thrombosis prophylaxis. DISPOSITION: Appreciate cardiology and Neurology evaluation, follow up further cardiac recs today. Subjective 24 Hr Interval Summary Free Text/Dictation Patient doing Ok and stable Still SR and ? episode of A fib last night on Tele Exam/Review of Systems Vital Signs Vitals Vital Signs Date Time Temp Pulse Resp B/P Pulse Ox O2 Delivery O2 Flow Rate FiO2 01/09/17 08:07 74 01/09/17 07:44 97.8 20 186/81 99 01/07/17 04:44 21 01/06/17 22:17 Room Air Intake and Output 01/08/17 01/08/17 01/09/17 15:00 23:00 07:00 Intake Total 940 ml Output Total 800 ml Balance 140 ml Exam Constitutional: alert, frail, oriented Respiratory: clear to auscultation, normal air movement Cardiovascular: nl pulses, regular rate and rhythm Gastrointestinal: non-tender, soft Musculoskeletal: nl extremities to inspection, other (left hemiparesis ) Extremities: normal pulses, other (no edema, clubbing or cyanosis ) Neurological: LEARNING COACH II-XII intact, focal weakness (left Hemiparesis LUE>>LLE), nl mental status, nl speech Results Result Diagram: 01/08/17 0612 01/09/17 0557 Results 24 hrs Laboratory Tests Test 01/08/17 12:07 01/08/17 17:08 01/08/17 21:31 01/09/17 05:57 Bedside Glucose 163 106 129 Sodium Level 137 Potassium Level 4.0 Chloride Level 104 Carbon Dioxide Level 26 Anion Gap 11 Blood Urea Nitrogen 23 H Creatinine 1.17 H Glucose Level 97 Calcium Level 9.0 Phosphorus Level 4.6 Magnesium Level 1.9 Total Bilirubin 0.5 Direct Bilirubin 0.00 Indirect Bilirubin 0.5 Aspartate Amino Transf (AST/SGOT) 23 Alanine Aminotransferase (ALT/SGPT) 35 Alkaline Phosphatase 66 Total Protein 6.2 Albumin 4.0 Globulin 2.20 Albumin/Globulin Ratio 1.81 Test 01/09/17 07:41 Bedside Glucose 110 Medications Medications Current Medications Acetaminophen (Tylenol Tab) 650 mg Q6H PRN PO MILD PAIN LEVEL 1-3 Last administered on 01/08/17 14:24; Admin Dose 650 MG; Start 01/06/17 at 23:30 Ascorbic Acid (Vitamin C) 500 mg DAILY PO Last administered on 01/09/17 08:44; Admin Dose 500 MG; Start 01/07/17 at 09:00 Aspirin (Halfprin) 81 mg DAILY PO Last administered on 01/09/17 08:44; Admin Dose 81 MG; Start 01/07/17 at 09:00 Atorvastatin Calcium (Lipitor) 80 mg QHS PO Last administered on 01/08/17 21:29 ; Admin Dose 80 MG; Start 01/07/17 at 21:00 Beta Carotene (Ocuvite) 1 tab DAILY PO Last administered on 01/09/17 08:44; Admin Dose 1 TAB; Start 01/07/17 at 09:00 Bisacodyl (Dulcolax Supp) 10 mg DAILY PRN [place] CONSTIPATION; Start 01/06/17 at 23: 30 Brimonidine Tartrate (Alphagan P 0.1%) 1 drop BID BOTH EYES Last administered on 01/09/17 08:46; Admin Dose 1 DROP; Start 01/07/17 at 09:00 Cholecalciferol (Vitamin D) 1,000 unit BID PO Last administered on 01/09/17 08: 43; Admin Dose 1,000 UNIT; Start 01/07/17 at 09:00 Clopidogrel Bisulfate (plaVIX) 75 mg DAILY PO Last administered on 01/09/17 08: 43; Admin Dose 75 MG; Start 01/07/17 at 09:00 Docusate Sodium (Colace) 200 mg BID PO Last administered on 01/08/17 21:28; Admin Dose 200 MG; Start 01/07/17 at 09:00 Enoxaparin Sodium (Lovenox) 30 mg DAILY SC Last administered on 01/09/17 09:05 ; Admin Dose 30 MG; Start 01/07/17 at 09:00 Acetaminophen/ Hydrocodone Bitart ([place] (5/325)) 1 tab Q6 PRN PO PAIN LEVEL 6- 10 Last administered on 01/09/17 02:02; Admin Dose 1 TAB; Start 01/06/17 at 23:30 Linagliptin (Tradjenta) 5 mg DAILY PO Last administered on 01/09/17 08:43; Admin Dose 5 MG; Start 01/07/17 at 09:00 Magnesium Hydroxide (Milk Of Mag) 30 ml DAILY PRN [place] CONSTIPATION; Start at 23:30 Multivitamins/ Minerals (Theragran-M) 1 tab DAILY PO Last administered on 08:43; Admin Dose 1 TAB; Start 01/07/17 at 09:00 Salmeterol Xinafoate/ Fluticasone (Advair 250/50 Diskus) 1 inh BID INH Last administered on 01/09/17 08:46; Admin Dose 1 INH; Start 01/07/17 at 09:00 Sodium Biphosphate/ Sodium Phosphate (Fleet Enema) 133 ml Q48H PRN [place] CONSTIPATION; Start 01/07/17 at 08:00 Pantoprazole (Protonix Tab) 40 mg DAILY@06 PO Last administered on 01/09/17 05: 36; Admin Dose 40 MG; Start 01/07/17 at 06:00 Ondansetron HCl (Zofran Inj) 4 mg Q6H PRN IV NAUSEA AND/OR VOMITING; Start 01/07 at 00:00 Morphine Sulfate (morphine) 2 mg Q3H PRN IV PAIN; Start 01/07/17 at 00:00 Lisinopril (Zestril) 20 mg BID PO Last administered on 01/09/17 08:43; Admin Dose 20 MG; Start 01/07/17 at 00:00 Hydralazine HCl (Apresoline) 10 mg Q6H PRN PO ELEVATED BLOOD PRESSURE; Start at 00:00 Diagnostic Test (Pha) (Accu-Chek) 1 ea 02 XX ; Start 01/07/17 at 02:00 Miscellaneous Information 1 ea NOTE XX ; Start 01/06/17 at 23:45 Glucose (Glutose) 15 gm Q15M PRN PO DECREASED GLUCOSE; Start 01/06/17 at 23:45 Glucose (Glutose) 22.5 gm Q15M PRN PO DECREASED GLUCOSE; Start 01/06/17 at 23:45 Dextrose (D50w Syringe) 25 ml Q15M PRN IV DECREASED GLUCOSE; Start 01/06/17 at 23:45 Dextrose (D50w Syringe) 50 ml Q15M PRN IV DECREASED GLUCOSE; Start 01/06/17 at 23:45 Glucagon (Glucagen) 1 mg Q15M PRN IM DECREASED GLUCOSE; Start 01/06/17 at 23:45 Glucose (Glutose) 15 gm Q15M PRN BUCCAL DECREASED GLUCOSE; Start 01/06/17 at 23: 45 Nystatin (Nystatin Powder) 1 applic BID TOP Last administered on 01/09/17 08:46 ; Admin Dose 1 APPLIC; Start 01/07/17 at 12:00 Carvedilol (Coreg) 3.125 mg BID PO Last administered on 01/09/17 08:44; Admin Dose 3.125 MG; Start 01/07/17 at 11:30 Hydrocortisone (Hydrocortisone 1% Oint) 1 applic TID TOP Last administered on 08:46; Admin Dose 1 APPLIC; Start 01/08/17 at 13:00 Fluconazole (Diflucan) 150 mg ONCE PO ; Start 01/09/17 at 12:30; Stop 01/09/17 at 23:00 Procedures Procedures PROCEDURE: MRA Neck without contrast. CLINICAL INDICATION: Stroke. TECHNIQUE: An MRA of the major cervical arteries was performed utilizing axial 2D time of flight, 3-D [id number] through the carotid bifurcations, and dynamic contrast enhanced 3-D MR angiography technique. Source and MIP images were reviewed. COMPARISON: Neck CTA 12/06/2016. FINDINGS: The origins of the great vessels off the aortic arch are patent without significant stenosis. The common carotid and internal carotid arteries are patent without hemodynamically significant stenosis by NASCET criteria. Direct measurements of vessel diameters was made in reference to measurements of the distal internal carotid artery diameter. The right vertebral artery is dominant. Bilateral vertebral arteries are otherwise patent without high-grade stenosis. Multinodular goiter is again noted. IMPRESSION: 1. Patent major neck arteries. 2. Multinodular goiter, consider ultrasound for further evaluation as clinically warranted. RPTAT: HFN .Selvin Orona MD, MD Date Time Electronically viewed and signed by .Selvin Orona MD, on 01/08/2017 21: 16 PROCEDURE: MRA Brain. CLINICAL INDICATION: Stroke. TECHNIQUE: An MRA of the brain was performed without intravenous contrast utilizing the following sequences: 3-D [id number] images through the intracranial vasculature with post processed maximal intensity projections in multiple planes. COMPARISON: Brain MRI 01/07/2017. Brain MRA 12/06/2016. FINDINGS: Multiple images are degraded by motion. There are mild stenosis of cavernous and supraclinoid segments internal carotid artery. There is moderate to severe stenosis of the cavernous segment of the left internal carotid artery. The petrous internal carotid artery segments are patent without evidence of significant stenosis. There is decreased flow related enhancement of the distal M1 and proximal M2 segments of right middle cerebral artery concerning for moderate stenosis. The proximal anterior cerebral and left middle cerebral artery are patent without significant stenosis. There is predominant origin of right posterior cerebral artery with hypoplastic right P1 segment which are anatomical variation. There is significant decreased flow related enhancement of the left intradural vertebral artery concerning for severe stenosis. There is moderate stenosis of the distal basilar artery. There is mild to moderate narrowing of the P2 segment of left posterior cerebral artery. The right intradural vertebral artery and remainder posterior cerebral arteries are patent without evidence of significant focal stenosis. No aneurysms are identified. IMPRESSION: 1. Suboptimal motion degraded study. 2. Moderate to severe stenosis of the cavernous segment of the left internal carotid artery. Mild stenosis of right cavernous and supraclinoid segments of the right internal carotid artery. 3. Moderate stenosis of distal M1 and proximal M2 segments of the right middle cerebral artery. 3. Severe stenosis of left intradural vertebral artery. 4. Moderate stenosis of the distal basilar artery. 5. Mild to moderate narrowing of the P2 segment of left posterior cerebral artery. DARRELL MARQUIS Jan 09, 2017 12:00
--- NOTE | 2017-01-09 12:03 | CONS ---
Date/Time of Note Date/Time of Note DATE: 01/09/17 TIME: 12:00 Consult Date/Type/Reason Admit Date/Time Jan 06, 2017 at 17:36 Initial Consult Date 01/08/17 Type of Consultation: cv Reason for Consultation left pontine acute stroke Ordering Provider: DARRELL MARQUIS Subjective remains neurologically stable, residual left sided weakness from prior stroke no new complaints episodes of vtach and SVT last night Objective Vital Signs Date Time Temp Pulse Resp B/P Pulse Ox O2 Delivery O2 Flow Rate FiO2 01/09/17 08:07 74 01/09/17 07:44 97.8 20 186/81 99 01/07/17 04:44 21 01/06/17 22:17 Room Air Intake and Output 01/08/17 01/08/17 01/09/17 15:00 23:00 07:00 Intake Total 940 ml Output Total 800 ml Balance 140 ml Exam awake and alert oriented to hospital self and date oriented to family NAD CN: MARIALUISA, VFF, Left UMN facial weakness, palate upgoing uvula midline scm/trap intact Motor 0/5 strength on left arm, left leg 3/5 can briefly lift anti-gravity with drift to the bed after couple seconds Sensory decreased to left arm and leg Coordination unable to perform on left due to weakness Results/Medications Result Diagram: 01/08/17 0612 01/09/17 0557 Results 24 hrs Laboratory Tests Test 01/08/17 12:07 01/08/17 17:08 01/08/17 21:31 01/09/17 05:57 Bedside Glucose 163 106 129 Sodium Level 137 Potassium Level 4.0 Chloride Level 104 Carbon Dioxide Level 26 Anion Gap 11 Blood Urea Nitrogen 23 H Creatinine 1.17 H Glucose Level 97 Calcium Level 9.0 Phosphorus Level 4.6 Magnesium Level 1.9 Total Bilirubin 0.5 Direct Bilirubin 0.00 Indirect Bilirubin 0.5 Aspartate Amino Transf (AST/SGOT) 23 Alanine Aminotransferase (ALT/SGPT) 35 Alkaline Phosphatase 66 Total Protein 6.2 Albumin 4.0 Globulin 2.20 Albumin/Globulin Ratio 1.81 Test 01/09/17 07:41 Bedside Glucose 110 Medications Current Medications Acetaminophen (Tylenol Tab) 650 mg Q6H PRN PO MILD PAIN LEVEL 1-3 Last administered on 01/08/17t 14:24; Admin Dose 650 MG; Start 01/06/17 at 23:30 Ascorbic Acid (Vitamin C) 500 mg DAILY PO Last administered on 01/09/17 08:44; Admin Dose 500 MG; Start 01/07/17 at 09:00 Aspirin (Halfprin) 81 mg DAILY PO Last administered on 01/09/17 08:44; Admin Dose 81 MG; Start 01/07/17 at 09:00 Atorvastatin Calcium (Lipitor) 80 mg QHS PO Last administered on 01/08/17 21:29 ; Admin Dose 80 MG; Start 01/07/17 at 21:00 Beta Carotene (Ocuvite) 1 tab DAILY PO Last administered on 01/09/17 08:44; Admin Dose 1 TAB; Start 01/07/17 at 09:00 Bisacodyl (Dulcolax Supp) 10 mg DAILY PRN [place] CONSTIPATION; Start 01/06/17 at 23: 30 Brimonidine Tartrate (Alphagan P 0.1%) 1 drop BID BOTH EYES Last administered on 01/09/17 08:46; Admin Dose 1 DROP; Start 01/07/17 at 09:00 Cholecalciferol (Vitamin D) 1,000 unit BID PO Last administered on 01/09/17 08: 43; Admin Dose 1,000 UNIT; Start 01/07/17 at 09:00 Clopidogrel Bisulfate (plaVIX) 75 mg DAILY PO Last administered on 01/09/17 08: 43; Admin Dose 75 MG; Start 01/07/17 at 09:00 Docusate Sodium (Colace) 200 mg BID PO Last administered on 01/08/17 21:28; Admin Dose 200 MG; Start 01/07/17 at 09:00 Enoxaparin Sodium (Lovenox) 30 mg DAILY SC Last administered on 01/09/17 09:05 ; Admin Dose 30 MG; Start 01/07/17 at 09:00 Acetaminophen/ Hydrocodone Bitart ([place] (5/325)) 1 tab Q6 PRN PO PAIN LEVEL 6- 10 Last administered on 01/09/17 02:02; Admin Dose 1 TAB; Start 01/06/17 at 23:30 Linagliptin (Tradjenta) 5 mg DAILY PO Last administered on 01/09/17 08:43; Admin Dose 5 MG; Start 01/07/17 at 09:00 Magnesium Hydroxide (Milk Of Mag) 30 ml DAILY PRN PO CONSTIPATION; Start at 23:30 Multivitamins/ Minerals (Theragran-M) 1 tab DAILY PO Last administered on 08:43; Admin Dose 1 TAB; Start 01/07/17 at 09:00 Salmeterol Xinafoate/ Fluticasone (Advair 250/50 Diskus) 1 inh BID INH Last administered on 01/09/17 08:46; Admin Dose 1 INH; Start 01/07/17 at 09:00 Sodium Biphosphate/ Sodium Phosphate (Fleet Enema) 133 ml Q48H PRN [place] CONSTIPATION; Start 01/07/17 at 08:00 Pantoprazole (Protonix Tab) 40 mg DAILY@06 PO Last administered on 01/09/17 05: 36; Admin Dose 40 MG; Start 01/07/17 at 06:00 Ondansetron HCl (Zofran Inj) 4 mg Q6H PRN IV NAUSEA AND/OR VOMITING; Start 01/07 at 00:00 Morphine Sulfate (morphine) 2 mg Q3H PRN IV PAIN; Start 01/07/17 at 00:00 Lisinopril (Zestril) 20 mg BID PO Last administered on 01/09/17 08:43; Admin Dose 20 MG; Start 01/07/17 at 00:00 Hydralazine HCl (Apresoline) 10 mg Q6H PRN PO ELEVATED BLOOD PRESSURE; Start at 00:00 Diagnostic Test (Pha) (Accu-Chek) 1 ea 02 XX ; Start 01/07/17 at 02:00 Miscellaneous Information 1 ea NOTE XX ; Start 01/06/17 at 23:45 Glucose (Glutose) 15 gm Q15M PRN PO DECREASED GLUCOSE; Start 01/06/17 at 23:45 Glucose (Glutose) 22.5 gm Q15M PRN PO DECREASED GLUCOSE; Start 01/06/17 at 23:45 Dextrose (D50w Syringe) 25 ml Q15M PRN IV DECREASED GLUCOSE; Start 01/06/17 at 23:45 Dextrose (D50w Syringe) 50 ml Q15M PRN IV DECREASED GLUCOSE; Start 01/06/17 at 23:45 Glucagon (Glucagen) 1 mg Q15M PRN IM DECREASED GLUCOSE; Start 01/06/17 at 23:45 Glucose (Glutose) 15 gm Q15M PRN BUCCAL DECREASED GLUCOSE; Start 01/06/17 at 23: 45 Nystatin (Nystatin Powder) 1 applic BID TOP Last administered on 01/09/17 08:46 ; Admin Dose 1 APPLIC; Start 01/07/17 at 12:00 Carvedilol (Coreg) 3.125 mg BID PO Last administered on 01/09/17 08:44; Admin Dose 3.125 MG; Start 01/07/17 at 11:30 Hydrocortisone (Hydrocortisone 1% Oint) 1 applic TID TOP Last administered on 08:46; Admin Dose 1 APPLIC; Start 01/08/17 at 13:00 Fluconazole (Diflucan) 150 mg ONCE PO ; Start 01/09/17 at 12:30; Stop 01/09/17 at 23:00 Assessment/Plan Chief Complaint/Hosp Course 76 year old female with recent admission for CHF exacerbation EF:35%, developed Right MCA syndrome s/p IV tPA with multi-vessel stenosis suspected intracranial atherosclerosis as etiology of prior stroke managed on dual antiplatelet therapy with aspirin and plavix. She is now admitted with hypertensive emergency SBP in 200 range with new acute left paramedian pontine 4 mm lacunar type stroke. Review of prior CTA shows high grade intradural left vertebral artery stenosis, supplies left cerebellum and left brainstem. Suspect the etiology of this new stroke is a lacunar type stroke from advanced atherosclerosis of left vertebral artery and elevated blood pressure. MRA Head shows multivessel stenosis, MRA Neck no significant stenosis. Recommendations: -continue on dual antiplatelet therapy aspirin plus plavix -continue on high dose Lipitor 80 mg qhs LDL at goal -maintain euglycemia -target blood pressure SBP<130 for lacunar stroke -appreciate cardiology evaluation, agree with plan for loop recorder to monitor for afib -DVT ppx -continue therapies -outpatient neurology follow up Problems: LENNY MELGOZA MD Jan 09, 2017 12:03
[2017-01-09] MEDS ORDERED: FLUCONAZOLE 150 MG TAB PO SCH (12:30)
[2017-01-09] MEDS ORDERED: LIDOCAINE 1%/EPI 30 ML INJ ONE (14:55)
[2017-01-09] MEDS ORDERED: CEFAZOLIN 1 GM/50 ML (PMX) 50 ML IVPB ONE (15:03)
--- NOTE | 2017-01-09 15:32 | CONS ---
Date/Time of Note Date/Time of Note DATE: 01/09/17 TIME: 15:30 Assessment/Plan Assessment/Plan Additional Assessment/Plan Acute left pontine CVA History of right MCA CVA Left vertebral artery stenosis Hypertension Cerebral artery disease Diabetes Cardiomyopathy Paroxysmal atrial tachycardia -Telemetry reviewed with brief episodes of atrial tachycardia. Discussed with patient and daughter over the phone regarding loop recorder and agreed to proceed. Increased dose of Coreg, continue antiplatelet therapy and statin therapy. Consultation Date/Type/Reason Admit Date/Time Jan 06, 2017 at 17:36 Initial Consult Date 01/08/17 Type of Consultation: cv Referring Provider: DARRELL MARQUIS 24 HR Interval Summary Free Text/Dictation Patient denies palpitations, shortness of breath or chest pain. Exam/Review of Systems Vital Signs Vitals Vital Signs Date Time Temp Pulse Resp B/P Pulse Ox O2 Delivery O2 Flow Rate FiO2 01/09/17 14:24 70 159/70 01/09/17 12:17 98.2 17 95 01/07/17 04:44 21 01/06/17 22:17 Room Air Intake and Output 01/08/17 01/08/17 01/09/17 15:00 23:00 07:00 Intake Total 940 ml Output Total 800 ml Balance 140 ml Exam Following commands, no apparent distress Constitutional: alert, oriented Head: normocephalic Respiratory: other (Coarse breath sounds bilaterally, no wheezing) Cardiovascular: other (S1-S2 heard), regular rate and rhythm Gastrointestinal: bowel sounds, non-tender, soft Extremities: other (No edema) Results Result Diagram: 01/08/17 0612 01/09/17 0557 Results 24 hrs Laboratory Tests Test 01/08/17 17:08 01/08/17 21:31 01/09/17 05:57 01/09/17 07:41 Bedside Glucose 106 129 110 Sodium Level 137 Potassium Level 4.0 Chloride Level 104 Carbon Dioxide Level 26 Anion Gap 11 Blood Urea Nitrogen 23 H Creatinine 1.17 H Glucose Level 97 Calcium Level 9.0 Phosphorus Level 4.6 Magnesium Level 1.9 Total Bilirubin 0.5 Direct Bilirubin 0.00 Indirect Bilirubin 0.5 Aspartate Amino Transf (AST/SGOT) 23 Alanine Aminotransferase (ALT/SGPT) 35 Alkaline Phosphatase 66 Total Protein 6.2 Albumin 4.0 Globulin 2.20 Albumin/Globulin Ratio 1.81 Test 01/09/17 12:10 Bedside Glucose 135 Medications Medications Current Medications Acetaminophen (Tylenol Tab) 650 mg Q6H PRN PO MILD PAIN LEVEL 1-3 Last administered on 01/08/17 14:24; Admin Dose 650 MG; Start 01/06/17 at 23:30 Ascorbic Acid (Vitamin C) 500 mg DAILY PO Last administered on 01/09/17 08:44; Admin Dose 500 MG; Start 01/07/17 at 09:00 Aspirin (Halfprin) 81 mg DAILY PO Last administered on 01/09/17 08:44; Admin Dose 81 MG; Start 01/07/17 at 09:00 Atorvastatin Calcium (Lipitor) 80 mg QHS PO Last administered on 01/08/17 21:29 ; Admin Dose 80 MG; Start 01/07/17 at 21:00 Beta Carotene (Ocuvite) 1 tab DAILY PO Last administered on 01/09/17 08:44; Admin Dose 1 TAB; Start 01/07/17 at 09:00 Bisacodyl (Dulcolax Supp) 10 mg DAILY PRN [place] CONSTIPATION; Start 01/06/17 at 23: 30 Brimonidine Tartrate (Alphagan P 0.1%) 1 drop BID BOTH EYES Last administered on 01/09/17 08:46; Admin Dose 1 DROP; Start 01/07/17 at 09:00 Cholecalciferol (Vitamin D) 1,000 unit BID PO Last administered on 01/09/17 08: 43; Admin Dose 1,000 UNIT; Start 01/07/17 at 09:00 Clopidogrel Bisulfate (plaVIX) 75 mg DAILY PO Last administered on 01/09/17 08: 43; Admin Dose 75 MG; Start 01/07/17 at 09:00 Docusate Sodium (Colace) 200 mg BID PO Last administered on 01/08/17 21:28; Admin Dose 200 MG; Start 01/07/17 at 09:00 Enoxaparin Sodium (Lovenox) 30 mg DAILY SC Last administered on 01/09/17 09:05 ; Admin Dose 30 MG; Start 01/07/17 at 09:00 Acetaminophen/ Hydrocodone Bitart ([place] (5/325)) 1 tab Q6 PRN PO PAIN LEVEL 6- 10 Last administered on 01/09/17 02:02; Admin Dose 1 TAB; Start 01/06/17 at 23:30 Linagliptin (Tradjenta) 5 mg DAILY PO Last administered on 01/09/17 08:43; Admin Dose 5 MG; Start 01/07/17 at 09:00 Magnesium Hydroxide (Milk Of Mag) 30 ml DAILY PRN PO CONSTIPATION; Start at 23:30 Multivitamins/ Minerals (Theragran-M) 1 tab DAILY PO Last administered on 08:43; Admin Dose 1 TAB; Start 01/07/17 at 09:00 Salmeterol Xinafoate/ Fluticasone (Advair 250/50 Diskus) 1 inh BID INH Last administered on 01/09/17 08:46; Admin Dose 1 INH; Start 01/07/17 at 09:00 Sodium Biphosphate/ Sodium Phosphate (Fleet Enema) 133 ml Q48H PRN [place] CONSTIPATION; Start 01/07/17 at 08:00 Pantoprazole (Protonix Tab) 40 mg DAILY@06 PO Last administered on 01/09/17 05: 36; Admin Dose 40 MG; Start 01/07/17 at 06:00 Ondansetron HCl (Zofran Inj) 4 mg Q6H PRN IV NAUSEA AND/OR VOMITING; Start 01/07 at 00:00 Morphine Sulfate (morphine) 2 mg Q3H PRN IV PAIN; Start 01/07/17 at 00:00 Lisinopril (Zestril) 20 mg BID PO Last administered on 01/09/17 08:43; Admin Dose 20 MG; Start 01/07/17 at 00:00 Hydralazine HCl (Apresoline) 10 mg Q6H PRN PO ELEVATED BLOOD PRESSURE Last administered on 01/09/17 12:24; Admin Dose 10 MG; Start 01/07/17 at 00:00 Diagnostic Test (Pha) (Accu-Chek) 1 ea 02 XX ; Start 01/07/17 at 02:00 Miscellaneous Information 1 ea NOTE XX ; Start 01/06/17 at 23:45 Glucose (Glutose) 15 gm Q15M PRN PO DECREASED GLUCOSE; Start 01/06/17 at 23:45 Glucose (Glutose) 22.5 gm Q15M PRN PO DECREASED GLUCOSE; Start 01/06/17 at 23:45 Dextrose (D50w Syringe) 25 ml Q15M PRN IV DECREASED GLUCOSE; Start 01/06/17 at 23:45 Dextrose (D50w Syringe) 50 ml Q15M PRN IV DECREASED GLUCOSE; Start 01/06/17 at 23:45 Glucagon (Glucagen) 1 mg Q15M PRN IM DECREASED GLUCOSE; Start 01/06/17 at 23:45 Glucose (Glutose) 15 gm Q15M PRN BUCCAL DECREASED GLUCOSE; Start 01/06/17 at 23: 45 Nystatin (Nystatin Powder) 1 applic BID TOP Last administered on 01/09/17 08:46 ; Admin Dose 1 APPLIC; Start 01/07/17 at 12:00 Carvedilol (Coreg) 3.125 mg BID PO Last administered on 01/09/17 08:44; Admin Dose 3.125 MG; Start 01/07/17 at 11:30 Hydrocortisone (Hydrocortisone 1% Oint) 1 applic TID TOP Last administered on 14:15; Admin Dose 1 APPLIC; Start 01/08/17 at 13:00 Fluconazole (Diflucan) 150 mg ONCE PO Last administered on 01/09/17 14:15; Admin Dose 150 MG; Start 01/09/17 at 12:30; Stop 01/09/17 at 23:00 Omega Chinchilla DO Jan 09, 2017 15:32
--- NOTE | 2017-01-09 15:41 | RADRPT ---
Echocardiogram Report Patient Name: GIANA ROBINS Gender: Female Date: 1940 Study Date: 08-Jan-2017 Clothing Patternmaker: Tanisha Cruz [facility] Location: [id number] Ref. Physician: OMEGA CHINCHILLA Quality: Good Procedures: Transthoracic echocardiogram with complete 2D, M-Mode, and doppler examination. Indications: Cerebrovascular Accident. 2D/M Mode Doppler Measurement Value Normal Ranges Measurement Value Normal Ranges LVIDd 2D 5.3 3.5 - 5.6 cm AV Peak John 1.5 m/sec LVIDs 2D 4.5 2.1 - 4.1 cm AV Peak PG 9.0 mmHg FS 2D 14.5 % LVOT Peak John 0.9 m/sec LVPWd 2D 1.2 0.6 - 1.1 cm LVOT Peak PG 3.0 mmHg IVSd 2D 1.2 0.6 - 1.1 cm MV E Peak John 0.6 m/sec IVS/LVPW 2D 1.0 MV A Peak John 1.0 m/sec AoR Diam 2D 3.0 2.0 - 3.7 cm MV E/A 0.6 LA/Ao 2D 1 0 - 1 MV Decel Time 243 msec EDV 2D 149.0 cm3 MV E/A 0.6 ESV 2D 93.0 cm3 TR Peak John 2.6 m/sec LA Dimen 2D 4.1 2.3 - 4.0 cm TR Peak PG 26.0 mmHg RVSP 29.0 mmHg Findings Left Ventricle: Normal left ventricular cavity size. Normal left ventricular wall thickness. Moderate left ventricular systolic dysfunction. Ejection fraction is visually estimated at 40 %. Tissue Doppler/Mitral Doppler indices are consistent with impaired relaxation (Stage I diastolic dysfunction). Right Ventricle: Normal right ventricular size. Normal right ventricular systolic function. Left Atrium: The left atrium is normal in size. Right Atrium: The right atrium is normal in size. Atrial Septum: Bubble study was performed with and with out valsalva indicating no evidence of intra atrial shunt. Mitral Valve: Normal appearance and function of the mitral valve with trace physiologic regurgitation. Aortic Valve: No significant aortic stenosis or insufficiency. Aortic cusps appear mildly calcified. Tricuspid Valve: Normal appearance of the tricuspid valve. Estimated peak PA systolic pressure 29 mmHg. There is trace tricuspid regurgitation. Pulmonic Valve: Normal pulmonic valve appearance. Pericardium: Normal pericardium with no significant pericardial effusion. Aorta: Normal aortic root. IVC: Normal size and normal respiratory collapse consistent with normal right atrial pressure. Conclusions Normal left ventricular cavity size. Normal left ventricular wall thickness. Moderate left ventricular systolic dysfunction. Ejection fraction is visually estimated at 40 %. Tissue Doppler/Mitral Doppler indices are consistent with impaired relaxation (Stage I diastolic dysfunction). Normal right ventricular size. Normal right ventricular systolic function. The left atrium is normal in size. The right atrium is normal in size. No significant valvular stenosis or regurgitation seen. Normal pericardium with no significant pericardial effusion. Bubble study was performed with and with out valsalva indicating no evidence of intra atrial shunt. Electronically Signed By: Omega Chinchilla 09-Jan-2017 15:40:31 -0700 Patient Name: GIANA ROBINS Study Date: 08-Jan-2017 [id number]
--- NOTE | 2017-01-09 16:02 | CONS ---
DATE OF ADMISSION: 01/06/2017 DATE OF CONSULTATION: 01/09/2017 TYPE OF CONSULTATION: Cardiac electrophysiology consultation. REASON FOR CONSULTATION: Recurrent stroke. Ms. Pagan is an unfortunate 76-year-old woman with recurrent CVA. She was admitted in December and now again presents with left pontine stroke. She is known to have cerebrovascular disease with athe rosclerotic disease as demonstrated on MRA; however, etiology is uncertain and we have been requeste d to consult for consideration of an implantable loop recorder for cryptogenic atrial fibrillation i n the setting of recurrent stroke. PAST MEDICAL HISTORY: Hypertension, CVA, cardiomyopathy and diabetes. FAMILY HISTORY: Noncontributory. PHYSICAL EXAMINATION: GENERAL: She is in no distress. VITAL SIGNS: Pulse 74, blood pressure 133/63, oxygen saturation 95%. NECK: No jugular venous distention. LUNGS: Clear to auscultation bilaterally. CARDIAC: Regular rate and rhythm. ABDOMEN: Soft, nontender. EXTREMITIES: Reveal no edema. She has left upper extremity weakness. LABORATORY RESULTS: Reviewed. Sodium 137, potassium 4.0, BUN 23, creatinine 1.17. MEDICATIONS: Reviewed. The patient is on dual antiplatelet therapy after her last stroke. ASSESSMENT: In summary, Ms. Pagan is a 76-year-old woman with recurrent cerebrovascular accide nt. She has multiple risk factors for stroke including no atherosclerotic disease; however, given t he recurrent nature of the stroke, I agree that implantable loop recorder is warranted to determine if she has any atrial fibrillation which will guide us in the treatment. If she is documented to h ave atrial fibrillation, I would recommend full antibiotic therapy. Thank you very much for this consultation. Dictated By: MARVIN SHORT/GRACE Conf#: [id number] DID#: [id number]
--- NOTE | 2017-01-09 16:24 | OPR ---
DATE OF OPERATION: 01/09/2017 PREOPERATIVE DIAGNOSIS: Cryptogenic cerebrovascular accident. POSTOPERATIVE DIAGNOSIS: Cryptogenic cerebrovascular accident. PROCEDURE PERFORMED: Implantable loop recorder. DESCRIPTION OF PROCEDURE: The patient was brought to the catheterization laboratory. The right aramis st was prepped in the usual fashion. In the fourth intercostal space in the left parasternal region, 1% lidocaine with epinephrine was in fused after the patient was prepped and draped in the usual fashion. Using the We[employer] kit, the skin was punctured using the puncture tool. The loop recorder was implanted using the implanter device. The incision was closed using a 4-0 Mon ocryl suture and surgical adhesive. Post-implantation interrogation revealed satisfactory numbers. CONCLUSION: Successful implantation of implantable loop recorder. Dictated By: MARVIN SHORT/GRACE Conf#: [id number] DID#: [id number]
[2017-01-09] MEDS: ATORVASTATIN 80 MG TAB PO SCH (20:44)
[2017-01-10] VITALS (9 sets, daily range): BP systolic 119–176; BP diastolic 55–96; PULSE 68–93; RESP 16–18
[2017-01-10] MEDS: ACCU-CHEK XX SCH (02:03)
[2017-01-10] MEDS: PANTOPRAZOLE (EC) 40 MG TAB PO SCH (05:36)
[2017-01-10 07:21] LABS: ALBUMIN 4.1 g/dl (3.3-4.9); ALBUMIN/GLOBULIN RATIO 1.78; BILIRUBIN,INDIRECT 0.4 mg/dl (0-1.1); BILIRUBIN,TOTAL 0.4 mg/dl (0.2-1.3); CALCIUM 9.3 mg/dl (8.4-10.2); CREATININE 1.21 mg/dl (0.44-1.00); POTASSIUM 4.4 mmol/L (3.5-5.1); TOTAL PROTEIN 6.4 g/dl (6.1-8.1)
[2017-01-10] MEDS: INSULIN ASPART [NOVOLOG] 3 ML PEN SC SCH ×2 (07:50→11:44)
[2017-01-10] MEDS: CLOPIDOGREL 75 MG TAB PO SCH (08:51)
[2017-01-10] MEDS: BETA CAROTENE/VIT C/E/MIN TAB PO SCH (08:52)
[2017-01-10] MEDS: LINAGLIPTIN 5 MG TABLET PO SCH (08:52)
[2017-01-10] MEDS: ASCORBIC ACID 500 MG TAB PO SCH (08:52)
[2017-01-10] MEDS: LISINOPRIL 20 MG TAB PO SCH (08:52)
[2017-01-10] MEDS: MULTIVITAMINS/MINERALS TAB PO SCH (08:52)
[2017-01-10] MEDS: ASPIRIN (EC) 81 MG TAB PO SCH (08:52)
[2017-01-10] MEDS: DOCUSATE SODIUM 100 MG CAP PO SCH (08:52)
[2017-01-10] MEDS: SALMETEROL/FLUTICASONE 250/50 INHA INH SCH (08:53)
[2017-01-10] MEDS: HYDROCORTISONE 1% 28.35 GM OINT TOP SCH ×2 (08:53→11:55)
[2017-01-10] MEDS: BRIMONIDINE 0.1% 5 ML OPH BOTH EYES SCH (08:53)
[2017-01-10] MEDS: NYSTATIN 30 GM POWDER BTL TOP SCH (08:53)
[2017-01-10] MEDS: ENOXAPARIN 30 MG/0.3 ML SYG SC SCH (08:57)
[2017-01-10] MEDS: CHOLECALCIFEROL 1,000 UNIT TAB PO SCH (08:58)
[2017-01-10 09:18] LABS: PHOSPHORUS 4.7 mg/dl (2.5-4.9)
--- NOTE | 2017-01-10 11:14 | PN ---
Date/Time of Note Date/Time of Note DATE: 01/10/17 TIME: 10:31 Assessment/Plan VTE Prophylaxis VTE Prophylaxis Intervention: SCD's Lines/Catheters IV Catheter Type (from [facility]): [facility] [facility] Urinary Cath still in place: No Assessment/Plan Assessment/Plan 76-year-old female: 1. S/p Hypertensive urgency, BP better controlled now, still need titration of meds at [facility] No bradycardia here, back on Coreg at higher dose per Cardiology and also on Lisinopril , dose increased to 40 mg po bid Adding Hydralazine 25 mg po q6 hrs prn SBP>160 2. Acute left nina CVA with also known chronic right middle cerebral artery CVA on MRI overnight with left vertebral artery severe stenosis Continue current antiplatelets for now as no Afib episode detected S/p placement of a loop recorder yesterday and per Cardio OK to go to [facility] with it and the recorder. Neurology and Cardiology following Continue current meds. MRA unchanged with severe stenosis intracranial segment of left vertebral artery 3. Diabetes mellitus. On Tradjenta and sliding scale insulin. 4. Hyperlipidemia. Continue Lipitor. 5. Chronic obstructive pulmonary disease. Continue Advair and Xopenex as needed. Stable on RA 6. Osteoporosis. Continue multivitamin and other additional vitamins. 7. Chronic kidney disease. Renal function seems to be stable. Continue to monitor at [facility] off diuretics. She is currently euvolemic. 8. Urinary tract infection based on urinalysis and Osiris albicans on Urine cx and Osiris vaginitis based on symptoms. Will give a second dose of Diflucan 150 mg p.o x1 and continue Nystatin powder. Prophylaxis: Pepcid for gastrointestinal prophylaxis and Lovenox for deep vein thrombosis prophylaxis. DISPOSITION: Appreciate cardiology and Neurology recommendations D/c back to [facility] today with Loop recorder and Monitor today. Subjective 24 Hr Interval Summary Free Text/Dictation Patient doing well and BP better controlled No additional complaints and s/p placement of loop recorder yesterday afternoon D/c back to [facility] Exam/Review of Systems Vital Signs Vitals Vital Signs Date Time Temp Pulse Resp B/P Pulse Ox O2 Delivery O2 Flow Rate FiO2 01/10/17 08:08 93 01/10/17 07:29 98.6 16 170/73 98 01/07/17 04:44 21 01/06/17 22:17 Room Air Intake and Output 01/09/17 01/09/17 01/10/17 15:00 23:00 07:00 Intake Total 400 ml 320 ml Balance 400 ml 320 ml Exam Constitutional: alert, oriented, other (left hemiparesis LUE>LLE) Respiratory: clear to auscultation, normal air movement Cardiovascular: nl pulses, regular rate and rhythm Gastrointestinal: non-tender, soft Musculoskeletal: nl extremities to inspection Extremities: normal pulses, other (no edema, clubbing or cyanosis ) Neurological: MANAGER PAYMENT II-XII intact, focal weakness (left hemiparesis LUE<<LLE), nl mental status, nl speech Results Result Diagram: 01/08/17 0612 01/10/17 0620 Results 24 hrs Laboratory Tests Test 01/09/17 12:10 01/09/17 17:32 01/09/17 20:42 01/10/17 06:20 Bedside Glucose 135 147 126 Sodium Level 140 Potassium Level 4.4 Chloride Level 106 Carbon Dioxide Level 27 Anion Gap 11 Blood Urea Nitrogen 23 H Creatinine 1.21 H Glucose Level 101 Calcium Level 9.3 Phosphorus Level 4.7 Magnesium Level 2.0 Total Bilirubin 0.4 Direct Bilirubin 0.00 Indirect Bilirubin 0.4 Aspartate Amino Transf (AST/SGOT) 30 Alanine Aminotransferase (ALT/SGPT) 37 Alkaline Phosphatase 63 Total Protein 6.4 Albumin 4.1 Globulin 2.30 Albumin/Globulin Ratio 1.78 Test 01/10/17 07:43 Bedside Glucose 145 Medications Medications Current Medications Acetaminophen (Tylenol Tab) 650 mg Q6H PRN PO MILD PAIN LEVEL 1-3 Last administered on 01/08/17 14:24; Admin Dose 650 MG; Start 01/06/17 at 23:30 Ascorbic Acid (Vitamin C) 500 mg DAILY PO Last administered on 01/10/17 08:52; Admin Dose 500 MG; Start 01/07/17 at 09:00 Aspirin (Halfprin) 81 mg DAILY PO Last administered on 01/10/17 08:52; Admin Dose 81 MG; Start 01/07/17 at 09:00 Atorvastatin Calcium (Lipitor) 80 mg QHS PO Last administered on 01/09/17 20:44 ; Admin Dose 80 MG; Start 01/07/17 at 21:00 Beta Carotene (Ocuvite) 1 tab DAILY PO Last administered on 01/10/17 08:52; Admin Dose 1 TAB; Start 01/07/17 at 09:00 Bisacodyl (Dulcolax Supp) 10 mg DAILY PRN [place] CONSTIPATION; Start 01/06/17 at 23: 30 Brimonidine Tartrate (Alphagan P 0.1%) 1 drop BID BOTH EYES Last administered on 01/10/17 08:53; Admin Dose 1 DROP; Start 01/07/17 at 09:00 Cholecalciferol (Vitamin D) 1,000 unit BID PO Last administered on 01/10/17 08: 58; Admin Dose 1,000 UNIT; Start 01/07/17 at 09:00 Clopidogrel Bisulfate (plaVIX) 75 mg DAILY PO Last administered on 01/10/17 08: 51; Admin Dose 75 MG; Start 01/07/17 at 09:00 Docusate Sodium (Colace) 200 mg BID PO Last administered on 01/09/17 20:44; Admin Dose 200 MG; Start 01/07/17 at 09:00 Enoxaparin Sodium (Lovenox) 30 mg DAILY SC Last administered on 01/10/17 08:57 ; Admin Dose 30 MG; Start 01/07/17 at 09:00 Acetaminophen/ Hydrocodone Bitart ([place] (5/325)) 1 tab Q6 PRN PO PAIN LEVEL 6- 10 Last administered on 01/09/17 02:02; Admin Dose 1 TAB; Start 01/06/17 at 23:30 Linagliptin (Tradjenta) 5 mg DAILY PO Last administered on 01/10/17 08:52; Admin Dose 5 MG; Start 01/07/17 at 09:00 Magnesium Hydroxide (Milk Of Mag) 30 ml DAILY PRN PO CONSTIPATION; Start at 23:30 Multivitamins/ Minerals (Theragran-M) 1 tab DAILY PO Last administered on 08:52; Admin Dose 1 TAB; Start 01/07/17 at 09:00 Salmeterol Xinafoate/ Fluticasone (Advair 250/50 Diskus) 1 inh BID INH Last administered on 01/10/17 08:53; Admin Dose 1 INH; Start 01/07/17 at 09:00 Sodium Biphosphate/ Sodium Phosphate (Fleet Enema) 133 ml Q48H PRN [place] CONSTIPATION; Start 01/07/17 at 08:00 Pantoprazole (Protonix Tab) 40 mg DAILY@06 PO Last administered on 01/10/17 05: 36; Admin Dose 40 MG; Start 01/07/17 at 06:00 Ondansetron HCl (Zofran Inj) 4 mg Q6H PRN IV NAUSEA AND/OR VOMITING; Start 01/07 at 00:00 Morphine Sulfate (morphine) 2 mg Q3H PRN IV PAIN; Start 01/07/17 at 00:00 Diagnostic Test (Pha) (Accu-Chek) 1 ea 02 XX Last administered on 01/10/17 02: 03; Admin Dose 1 EA; Start 01/07/17 at 02:00 Miscellaneous Information 1 ea NOTE XX ; Start 01/06/17 at 23:45 Glucose (Glutose) 15 gm Q15M PRN PO DECREASED GLUCOSE; Start 01/06/17 at 23:45 Glucose (Glutose) 22.5 gm Q15M PRN PO DECREASED GLUCOSE; Start 01/06/17 at 23:45 Dextrose (D50w Syringe) 25 ml Q15M PRN IV DECREASED GLUCOSE; Start 01/06/17 at 23:45 Dextrose (D50w Syringe) 50 ml Q15M PRN IV DECREASED GLUCOSE; Start 01/06/17 at 23:45 Glucagon (Glucagen) 1 mg Q15M PRN IM DECREASED GLUCOSE; Start 01/06/17 at 23:45 Glucose (Glutose) 15 gm Q15M PRN BUCCAL DECREASED GLUCOSE; Start 01/06/17 at 23: 45 Nystatin (Nystatin Powder) 1 applic BID TOP Last administered on 01/10/17 08:53 ; Admin Dose 1 APPLIC; Start 01/07/17 at 12:00 Hydrocortisone (Hydrocortisone 1% Oint) 1 applic TID TOP Last administered on 08:53; Admin Dose 1 APPLIC; Start 01/08/17 at 13:00 Carvedilol (Coreg) 6.25 mg BID PO Last administered on 01/10/17 08:53; Admin Dose 6.25 MG; Start 01/09/17 at 21:00 Hydralazine HCl (Apresoline) 25 mg Q6H PRN PO ELEVATED BLOOD PRESSURE; Start at 12:00 Lisinopril (Zestril) 40 mg BID PO ; Start 01/10/17 at 21:00 DARRELL MARQUIS Jan 10, 2017 10:52
--- NOTE | 2017-01-10 11:27 | PDOCDIS ---
Discharge Instructions CONDITION Patient Condition: Stable HOME CARE INSTRUCTIONS: Special Diet: CARB CONTROLLED ACTIVITY: Activity Restrictions: Slowly Increase Activity FOLLOW UP/APPOINTMENTS Appointments Resume PT at home Follow up with PCP within 1 week Follow up with cardiology, Dr Chinchilla's group in 1 to 2 weeks Patient to go to SNF with Loop recorder in place and also monitor in box to be at side of her bed or with her at all times DARRELL MARQUIS Jan 10, 2017 11:27
[2017-01-10] MEDS: ACETAMINOPHEN 325 MG TAB PO PRN (11:55)
--- NOTE | 2017-01-10 13:19 | CONS ---
Date/Time of Note Date/Time of Note DATE: 01/10/17 TIME: 13:17 Assessment/Plan Assessment/Plan Additional Assessment/Plan Acute left pontine CVA History of right MCA CVA Left vertebral artery stenosis Hypertension Cerebral artery disease Diabetes Cardiomyopathy Paroxysmal atrial tachycardia -Patient status post loop recorder. Telemetry reviewed with no atrial fibrillation seen. Continue dual antiplatelet therapy, statin therapy, blood pressure management. DC planning. Consultation Date/Type/Reason Admit Date/Time Jan 06, 2017 at 17:36 Initial Consult Date 01/08/17 Type of Consultation: cv Referring Provider: DARRELL MARQUIS 24 HR Interval Summary Free Text/Dictation Denies shortness of breath, palpitations, chest pain Exam/Review of Systems Vital Signs Vitals Vital Signs Date Time Temp Pulse Resp B/P Pulse Ox O2 Delivery O2 Flow Rate FiO2 01/10/17 12:09 73 01/10/17 11:22 98.0 16 152/68 95 01/07/17 04:44 21 01/06/17 22:17 Room Air Intake and Output 01/09/17 01/09/17 01/10/17 15:00 23:00 07:00 Intake Total 400 ml 320 ml Balance 400 ml 320 ml Exam No apparent distress Constitutional: alert, oriented Head: normocephalic Respiratory: other (Coarse breath sounds bilaterally, no wheezing) Cardiovascular: other (S1-S2 heard), regular rate and rhythm Gastrointestinal: bowel sounds, non-tender, soft Extremities: edema Results Result Diagram: 01/08/17 0612 01/10/17 0620 Results 24 hrs Laboratory Tests Test 01/09/17 17:32 01/09/17 20:42 01/10/17 06:20 01/10/17 07:43 Bedside Glucose 147 126 145 Sodium Level 140 Potassium Level 4.4 Chloride Level 106 Carbon Dioxide Level 27 Anion Gap 11 Blood Urea Nitrogen 23 H Creatinine 1.21 H Glucose Level 101 Calcium Level 9.3 Phosphorus Level 4.7 Magnesium Level 2.0 Total Bilirubin 0.4 Direct Bilirubin 0.00 Indirect Bilirubin 0.4 Aspartate Amino Transf (AST/SGOT) 30 Alanine Aminotransferase (ALT/SGPT) 37 Alkaline Phosphatase 63 Total Protein 6.4 Albumin 4.1 Globulin 2.30 Albumin/Globulin Ratio 1.78 Test 01/10/17 11:40 Bedside Glucose 150 Medications Medications Current Medications Acetaminophen (Tylenol Tab) 650 mg Q6H PRN PO MILD PAIN LEVEL 1-3 Last administered on 01/10/17 11:55; Admin Dose 650 MG; Start 01/06/17 at 23:30 Ascorbic Acid (Vitamin C) 500 mg DAILY PO Last administered on 01/10/17 08:52; Admin Dose 500 MG; Start 01/07/17 at 09:00 Aspirin (Halfprin) 81 mg DAILY PO Last administered on 01/10/17 08:52; Admin Dose 81 MG; Start 01/07/17 at 09:00 Atorvastatin Calcium (Lipitor) 80 mg QHS PO Last administered on 01/09/17 20:44 ; Admin Dose 80 MG; Start 01/07/17 at 21:00 Beta Carotene (Ocuvite) 1 tab DAILY PO Last administered on 01/10/17 08:52; Admin Dose 1 TAB; Start 01/07/17 at 09:00 Bisacodyl (Dulcolax Supp) 10 mg DAILY PRN [place] CONSTIPATION; Start 01/06/17 at 23: 30 Brimonidine Tartrate (Alphagan P 0.1%) 1 drop BID BOTH EYES Last administered on 01/10/17 08:53; Admin Dose 1 DROP; Start 01/07/17 at 09:00 Cholecalciferol (Vitamin D) 1,000 unit BID PO Last administered on 01/10/17 08: 58; Admin Dose 1,000 UNIT; Start 01/07/17 at 09:00 Clopidogrel Bisulfate (plaVIX) 75 mg DAILY PO Last administered on 01/10/17 08: 51; Admin Dose 75 MG; Start 01/07/17 at 09:00 Docusate Sodium (Colace) 200 mg BID PO Last administered on 01/09/17 20:44; Admin Dose 200 MG; Start 01/07/17 at 09:00 Enoxaparin Sodium (Lovenox) 30 mg DAILY SC Last administered on 01/10/17 08:57 ; Admin Dose 30 MG; Start 01/07/17 at 09:00 Acetaminophen/ Hydrocodone Bitart ([place] (5/325)) 1 tab Q6 PRN PO PAIN LEVEL 6- 10 Last administered on 01/09/17 02:02; Admin Dose 1 TAB; Start 01/06/17 at 23:30 Linagliptin (Tradjenta) 5 mg DAILY PO Last administered on 01/10/17 08:52; Admin Dose 5 MG; Start 01/07/17 at 09:00 Magnesium Hydroxide (Milk Of Mag) 30 ml DAILY PRN PO CONSTIPATION; Start at 23:30 Multivitamins/ Minerals (Theragran-M) 1 tab DAILY PO Last administered on 08:52; Admin Dose 1 TAB; Start 01/07/17 at 09:00 Salmeterol Xinafoate/ Fluticasone (Advair 250/50 Diskus) 1 inh BID INH Last administered on 01/10/17 08:53; Admin Dose 1 INH; Start 01/07/17 at 09:00 Sodium Biphosphate/ Sodium Phosphate (Fleet Enema) 133 ml Q48H PRN [place] CONSTIPATION; Start 01/07/17 at 08:00 Pantoprazole (Protonix Tab) 40 mg DAILY@06 PO Last administered on 01/10/17 05: 36; Admin Dose 40 MG; Start 01/07/17 at 06:00 Ondansetron HCl (Zofran Inj) 4 mg Q6H PRN IV NAUSEA AND/OR VOMITING; Start 01/07 at 00:00 Morphine Sulfate (morphine) 2 mg Q3H PRN IV PAIN; Start 01/07/17 at 00:00 Diagnostic Test (Pha) (Accu-Chek) 1 ea 02 XX Last administered on 01/10/17 02: 03; Admin Dose 1 EA; Start 01/07/17 at 02:00 Miscellaneous Information 1 ea NOTE XX ; Start 01/06/17 at 23:45 Glucose (Glutose) 15 gm Q15M PRN PO DECREASED GLUCOSE; Start 01/06/17 at 23:45 Glucose (Glutose) 22.5 gm Q15M PRN PO DECREASED GLUCOSE; Start 01/06/17 at 23:45 Dextrose (D50w Syringe) 25 ml Q15M PRN IV DECREASED GLUCOSE; Start 01/06/17 at 23:45 Dextrose (D50w Syringe) 50 ml Q15M PRN IV DECREASED GLUCOSE; Start 01/06/17 at 23:45 Glucagon (Glucagen) 1 mg Q15M PRN IM DECREASED GLUCOSE; Start 01/06/17 at 23:45 Glucose (Glutose) 15 gm Q15M PRN BUCCAL DECREASED GLUCOSE; Start 01/06/17 at 23: 45 Nystatin (Nystatin Powder) 1 applic BID TOP Last administered on 01/10/17 08:53 ; Admin Dose 1 APPLIC; Start 01/07/17 at 12:00 Hydrocortisone (Hydrocortisone 1% Oint) 1 applic TID TOP Last administered on 11:55; Admin Dose 1 APPLIC; Start 01/08/17 at 13:00 Carvedilol (Coreg) 6.25 mg BID PO Last administered on 01/10/17 08:53; Admin Dose 6.25 MG; Start 01/09/17 at 21:00 Hydralazine HCl (Apresoline) 25 mg Q6H PRN PO ELEVATED BLOOD PRESSURE; Start at 12:00 Lisinopril (Zestril) 40 mg BID PO ; Start 01/10/17 at 21:00 Omega Chinchilla DO Jan 10, 2017 13:19
[2017-01-10] MEDS ORDERED: LISINOPRIL 20 MG TAB PO SCH (21:00)
== END 2017-01-10 16:24 | DRG 260 ==
LOC: E/R 13:56 → TEL 17:36
PROVIDERS: ADMIT Internal Medicine; ATTEND Internal Medicine
PROC: 0JH632Z Insertion of Monitoring Device into Chest Subcutaneous Tissue and Fascia, Percutaneous Approach (ICD-10-PCS; principal; 2017-01-09)
DX: I16.0 Hypertensive urgency (principal); I63.212 Cerebral infarction due to unspecified occlusion or stenosis of left vertebral artery; I50.20 Unspecified systolic (congestive) heart failure; N39.0 Urinary tract infection, site not specified; E86.0 Dehydration; E11.9 Type 2 diabetes mellitus without complications; B37.3 Candidiasis of vulva and vagina; I47.1 Supraventricular tachycardia; I49.9 Cardiac arrhythmia, unspecified; G44.209 Tension-type headache, unspecified, not intractable; K21.9 Gastro-esophageal reflux disease without esophagitis; M81.0 Age-related osteoporosis without current pathological fracture; R29.708 NIHSS score 8; Z79.82 Long term (current) use of aspirin; Z79.02 Long term (current) use of antithrombotics/antiplatelets; I13.0 Hypertensive heart and chronic kidney disease with heart failure and stage 1 through stage 4 chronic kidney disease, or unspecified chronic kidney disease; N18.9 Chronic kidney disease, unspecified
CPT/HCPCS: 36415; 70450; 70544; 70549; 70551; 71010; 80048; 80053; 80061; 80076; 81001; 82962; 83690; 83735; 84100; 85025; 87070; 87086; 93005; 93306; 93880; 94664; 96361; 96365; 96366; 96375; J0690; J0696; J1650; J1815; J1885; J7030

== ENCOUNTER 2017-01-15 12:31 | Emergency (ER) | payer OTHER ==
[~2017-01-15] VITALS: Ht 162.6 cm; Wt 68.0 kg
[~2017-01-15 12:31] MED LIST changes: +ACET-141 PO; +ACET-2047 PO; +ADV25050 INHALATION; -AMLO-147 PO; +ASCO500C7 PO; -ATOR20TA38 PO; +ATOR80TA75 PO; +BISA10SU75 PR; +CARV3.12 PO; +CLOP75TA27 PO; +CRAN425C PO; +DEXT38GE15 PO; +DOCU-159 PO; +ENOX30DI10 SQ; +FAMO20TA18 PO; -FLUT1BLS INHALATION; -HYD25 PO; +HYDR-906 PO; +IRBE1TAB33 PO; +LEVA0.634 INHALATION; -LEVO500T72 PO; +LINA5TAB PO; -LISI-526 PO; +LISI2.5T59 PO; +MAGN400O4 PO; -METF500T4 PO; +MULT-843 PO; +NA P230E RC; +POLY17PO6 PO; -SAXA5TAB2 PO; -VITA1CAP38 PO
[2017-01-15 12:34] VITALS: Ht 162.6 cm; Wt 68.0 kg
[2017-01-15 13:42] LABS: ADD SCAN DIFF NO
[2017-01-15 13:59] LABS: INR 0.87; PARTIAL THROMBOPLASTIN TIME 29.5 Sec (25.0-35.0); PROTIME 11.8 Sec (12.2-14.2); PT RATIO 0.9
[2017-01-15 14:02] LABS: CALCIUM 9.7 mg/dl (8.4-10.2); CREATININE 1.23 mg/dl (0.44-1.00); POTASSIUM 4.5 mmol/L (3.5-5.1)
[2017-01-15 14:13] LABS: TROPONIN-I 0.057 ng/ml (0.00-0.12)
--- NOTE | 2017-01-15 14:32 | RADRPT ---
PROCEDURE: CT Brain without contrast. CLINICAL INDICATION: Headache. CVA. TECHNIQUE: CT scan of the brain was performed on a multidetector high-resolution CT scan. Axial im aging was obtained of the brain without contrast administration. Coronal and sagittal reformatted i mages were obtained from the axial source images. Standard CT scan of the head without contrast prot ocols were performed. The total exam CTDI equals 44.26 mGy and the total exam DLP equals 720.23 mGy-cm. One or more of the following dose reduction techniques were used: - Automated exposure control. - Adjustment of the mA and/or kV according to patient size. Use of iterative reconstruction technique. COMPARISON: MR brain 01/07/[address] head 01/06/2017 FINDINGS: Again noted is encephalomalacia involving the right frontal lobe with no change in the small area of high attenuation involving the posterior medial aspect of the region of encephalomalacia consistent with old infarct and associated hemosiderin. No new intracranial hemorrhages. No evidence of intr acranial masses. There is moderate generalized cerebral volume loss and nonspecific chronic microva scular ischemic changes. The 4 mm recent infarct involving the left nina and the MRI of the brain i s not clearly delineated on the current study. A follow-up MRI of the brain may be helpful for furth er evaluation. There is atherosclerotic vascular disease of the distal vertebral arteries and cavern ous carotid arteries. The bones and calvarium are intact. The paranasal sinuses and mastoids are u nremarkable. IMPRESSION: 1. No significant change. 2. Encephalomalacia involving the right frontal lobe consistent with old infarct with hemosiderin a long its posterior medial aspect. 3. No acute intracranial hemorrhages or masses. 4. Moderate generalized cerebral volume loss and nonspecific chronic microischemic disease. 5. 4 mm recent inferior left nina the previous MRI of the brain is not clearly delineated on the cu rrent study and a follow-up MRI of the brain may be helpful for further evaluation. RPTAT:AAJJ Physician Yeimi Date Time Electronically viewed and signed by Physician Yeimi on 01/15/2017 14:32 BM/
[2017-01-15 14:51] LABS: BASOPHILS % 0.2 % (0.0-2.0); EOSINOPHILS # 0.3 10^3/ul (0.0-0.5); EOSINOPHILS % 2.8 % (0.0-7.0); HEMATOCRIT 36.7 % (37.0-47.0); HEMOGLOBIN 12.6 g/dl (12.0-16.0); LYMPHOCYTES # 0.7 10^3/ul (0.8-2.9); LYMPHOCYTES % 7.3 % (15.0-51.0); MEAN CORPUSCULAR HEMOGLOBIN 31.8 pg (29.0-33.0); MEAN CORPUSCULAR HGB CONC 34.3 g/dl (32.0-37.0); MEAN CORPUSCULAR VOLUME 92.7 fl (82.0-101.0); MEAN PLATELET VOLUME 11.7 fl (7.4-10.4); MONOCYTE # 0.3 10^3/ul (0.3-0.9); MONOCYTES % 3.6 % (0.0-11.0); NEUTROPHIL # 7.7 10^3/ul (1.6-7.5); NEUTROPHILS % 85.8 % (39.0-77.0); PLATELET COUNT 254 10^3/UL (140-415); RED BLOOD COUNT 3.96 10^6/ul (4.20-5.40); RED CELL DISTRIBUTION WIDTH 13.4 % (11.5-14.5); WHITE BLOOD COUNT 8.9 10^3/ul (4.8-10.8)
--- NOTE | 2017-01-15 15:16 | RADRPT ---
PROCEDURE: XR Chest. CLINICAL INDICATION: Shortness of breath. Cerebrovascular accident. TECHNIQUE: Single frontal view. COMPARISON: 01/06/2017. FINDINGS: The lungs are clear. The heart is enlarged. There is calcification in the aorta consistent with atherosclerosis. There i s a cardiac loop recorder overlying the left chest wall. There is no pleural effusion. There is no pneumothorax. IMPRESSION: 1. Cardiomegaly and atherosclerosis. 2. Cardiac loop recorder. 3. Clear lungs. RPTAT: QQ .Gurjit Amaya MD, MD Date Time Electronically viewed and signed by .Gurjit Amaya MD, MD on 01/15/2017 15:15 .R/
--- NOTE | 2017-01-15 15:22 | ERD ---
ER Documentation Chief Complaint Date/Time DATE: 01/15/17 TIME: 15:21 Chief Complaint HEADACHE STARTED TODAY WITH BRADYCARDIA HPI Patient is a 76-year-old female with CHF, stroke, hypertension, and diabetes who presents for headache. The patient was at physical therapy and developed a headache. She had bradycardia and then tachycardia per the physical therapist as well. She was brought in by ambulance. She had nausea but no vomiting or diarrhea. She was recently discharged from [facility] just a few days ago. Her primary doctor is Dr. Bonilla. ROS All systems reviewed and are negative except as per history of present illness. Medications Home Meds Reported Medications Irbesartan-Hydrochlorothiazide (Irbesartan-Hydrochlorothiazide) 150-12.5 Mg Tab , 1 TAB PO DAILY, TAB 01/06/17 Levalbuterol Hcl* (Levalbuterol Hcl*) 0.63 Mg/3 Ml Vial.neb, 0.63 MG INHALATION Q6H Y for WHEEZING AND SOB, VIAL 01/06/17 Ascorbic Acid* (Vitamin C*) 500 Mg Capsule.sa, 500 MG PO DAILY, CAP 01/06/17 Acetaminophen* (Acetaminophen*) 500 MG Extra Strength Tablet, 1000 MG PO Q6H Y for MODERATE PAIN LEVEL 4-6, TAB 01/06/17 Acetaminophen* (Acetaminophen*) 650 Mg Tablet, 650 MG PO Q6H Y for MILD PAIN LEVEL 1-3, #30 TAB 01/06/17 Linagliptin (TRADJENTA) 5 Mg Tablet, 5 MG PO DAILY, TAB 01/06/17 Clopidogrel Bisulfate (Clopidogrel) 75 Mg Tablet, 75 MG PO DAILY, #30 TAB 01/06/17 Famotidine* (Famotidine*) 20 Mg Tablet, 20 MG PO DAILY, #30 TAB 01/06/17 Hydrocodone/Acetaminophen ([place] 5-325 Tablet) 1 Each Tablet, 1 TAB PO Q6 Y for PAIN LEVEL 6-10, TAB 01/06/17 Multivits,Ca,Minerals/Iron/FA (Thera M Plus Tablet) 1 Each Tablet, 1 TAB PO DAILY, TAB 01/06/17 Polyethylene Glycol* (Miralax*) 17 Gm Powd.pack, 8.5 GM PO DAILY Y for CONSTIPATION, #30 PACKET 01/06/17 Magnesium Hydroxide* (Milk Of Magnesia*) 400 Mg/5 Ml Oral.susp, 30 ML PO DAILY Y for CONSTIPATION, ML 01/06/17 Enoxaparin Sodium* (Lovenox*) 30 Mg/0.3 Ml Disp.syrin, 30 MG SQ DAILY, SYR 01/06/17 Lisinopril* (Lisinopril*) 2.5 Mg Tablet, 2.5 MG PO DAILY, #30 TAB 01/06/17 Atorvastatin* (Atorvastatin*) 80 Mg Tablet, 80 MG PO QHS, #30 TAB 01/06/17 Dextrose (Glucose Gel) 38 Gm Gel..gram., 38 GM PO PRN Y for BSUGAR BELOW 70 01/06/17 Bisacodyl* (Bisacodyl*) 10 Mg Supp, 10 MG MT DAILY Y for CONSTIPATION, SUPP 01/06/17 Na Phos,M-B/Na Phos,Di-Ba (Fleet Enema Extra) 230 Ml Enema, 230 ML RC Q48H PRN Y for CONSTIPATION, ENEMA 01/06/17 Cranberry Extract (Cranberry) 425 Mg Capsule, 425 MG PO DAILY, CAP 01/06/17 Carvedilol* (Coreg*) 3.125 Mg Tablet, 3.125 MG PO BID, #60 TAB 01/06/17 Docusate Sodium* (Docusate Sodium*) 100 Mg Capsule, 200 MG PO BID, #60 CAP 01/06/17 Salmeterol Xinaf/Fluticasone* (Advair*) 250-50 Diskus Inhaler, 1 INH INHALATION BID, #1 INHALER 01/06/17 Clobetasol Propionate* (Temovate*) 0.05%-15gm Cream..g., 1 APPLIC TOP BID, #1 TUB 12/05/16 Brimonidine Tartrate* (Alphagan P*) 0.1%-15 Ml Opht Drops, 1 DROP BOTH EYES BID , #1 EA INSTILL 1 DROP INTO BOTH EYES TWICE A DAY DIRECTED 12/05/16 Cholecalciferol* (Vitamin D3*) 1,000 Unit Tablet, 1000 UNIT PO BID, TAB 01/11/15 Beta Carotene (A) W-C & E/Min* (Ocuvite*) 1 Tab Tab, 1 TAB PO DAILY, TAB 05/06/14 Aspirin* (Aspirin* EC) 81 Mg Tablet.dr, 81 MG PO DAILY, TAB 05/06/14 Allergies Allergies: Coded Allergies: Penicillins (Unverified Allergy, Unknown, 01/15/17) PMhx/Soc History of Surgery: Yes (breast surgery hysterectomy) Anesthesia Reaction: No Hx Neurological Disorder: Yes (CVA LEFT SIDE. WEAKNESS) Hx Respiratory Disorders: No Hx Cardiac Disorders: Yes Hx Psychiatric Problems: No Hx Miscellaneous Medical Probl: Yes (CKD, GERD, DM, OSTEOPOROSIS, GLACOMA) Hx Alcohol Use: No Hx Substance Use: No Hx Tobacco Use: No Smoking Status: Never smoker FmHx Family History: diabetes Physical Exam Vitals Vital Signs Date Time Temp Pulse Resp B/P Pulse Ox O2 Delivery O2 Flow Rate FiO2 01/15/17 13:43 Nasal Cannula 2 01/15/17 12:34 99.1 76 18 152/76 96 Physical Exam Const: No acute distress Head: Atraumatic Eyes: Normal Conjunctiva ENT: Normal External Ears, Nose and Mouth. Neck: Full range of motion..~ No meningismus. Resp: Clear to auscultation bilaterally Cardio: Regular rate and rhythm, no murmurs Abd: Soft, non tender, non distended. Normal bowel sounds Skin: No petechiae or rashes Back: No midline or flank tenderness Ext: No cyanosis, or edema Neur: Awake and alert, no slurred speech, cranial nerves II through XII intact, patient has left upper extremity weakness from previous stroke Psych: Normal Mood and Affect Result Diagram: 01/15/17 1330 01/15/17 1330 Results 24 hrs Laboratory Tests Test 01/15/17 13:30 White Blood Count 8.910^3/ul Red Blood Count 3.9610^6/ul Hemoglobin 12.6g/dl Hematocrit 36.7% Mean Corpuscular Volume 92.7fl Mean Corpuscular Hemoglobin 31.8pg Mean Corpuscular Hemoglobin Concent 34.3g/dl Red Cell Distribution Width 13.4% Platelet Count 98935^3/UL Mean Platelet Volume 11.7fl Neutrophils % 85.8% Lymphocytes % 7.3% Monocytes % 3.6% Eosinophils % 2.8% Basophils % 0.2% Nucleated Red Blood Cells % 0.0/100WBC Neutrophils # 7.710^3/ul Lymphocytes # 0.710^3/ul Monocytes # 0.310^3/ul Eosinophils # 0.310^3/ul Basophils # 0.010^3/ul Nucleated Red Blood Cells # 0.010^3/ul Prothrombin Time 11.8Sec Prothrombin Time Ratio 0.9 INR International Normalized Ratio 0.87 Activated Partial Thromboplast Time 29.5Sec Sodium Level 142mmol/L Potassium Level 4.5mmol/L Chloride Level 107mmol/L Carbon Dioxide Level 26mmol/L Anion Gap 14 Blood Urea Nitrogen 24mg/dl Creatinine 1.23mg/dl Glucose Level 96mg/dl Hemoglobin A1c 6.9% Calcium Level 9.7mg/dl Troponin I 0.057ng/ml Procedures/MDM EKG read by me: Rate/Rhythm: Regular rate and rhythm at a rate of 75 Intervals: Normal Impression: No evidence of ischemia or arrhythmia CT shows no acute abnormality per radiology. Patient is a 76-year-old female with multiple comorbidities who presents with headache and nausea. CT scan of the brain shows no intracranial hemorrhage or mass. At this point I doubt stroke, meningitis, or intracranial mass. The patient will be discharged back to her nursing facility and should follow-up with the primary doctor within 24-48 hours for reevaluation. The patient can return for any worsening symptoms. Laboratory studies are basically normal. Laboratory studies and imaging test results were provided to the family prior to discharge. The patient has PVCs on her monitor but no bradycardia or tachycardia here in the emergency department. EKG shows no arrhythmia or bradycardia. Departure Diagnosis: Primary Impression: Arrhythmia Arrhythmia type: unspecified cardiac arrhythmia Qualified Code: I49.9 - Cardiac arrhythmia, unspecified cardiac arrhythmia type Additional Impression: Headache Headache type: unspecified Headache chronicity pattern: acute headache Intractability: not intractable Qualified Code: R51 - Acute nonintractable headache, unspecified headache type Condition: Fair Patient Instructions: Self-Care for Headaches Additional Instructions: Call your primary care doctor TOMORROW for an appointment during the next 1-2 days.See the doctor sooner or return here if your condition worsens before your appointment time. ELAINE LEONARD MD Jan 15, 2017 15:22
[2017-01-15 17:00] VITALS: BP 147/79; PULSE 75; RESP 18; TEMP 98.9
== END 2017-01-15 17:07 | disposition home or self-care (01) ==
LOC: E/R 12:31
DX: I49.9 Cardiac arrhythmia, unspecified (principal); I50.9 Heart failure, unspecified; I12.9 Hypertensive chronic kidney disease with stage 1 through stage 4 chronic kidney disease, or unspecified chronic kidney disease; N18.9 Chronic kidney disease, unspecified; E11.22 Type 2 diabetes mellitus with diabetic chronic kidney disease; Z79.01 Long term (current) use of anticoagulants; Z79.84 Long term (current) use of oral hypoglycemic drugs; Z79.82 Long term (current) use of aspirin
CPT/HCPCS: 36415; 70450; 71010; 80048; 83036; 84484; 85025; 85610; 85730; 93005

== ENCOUNTER 2017-02-24 14:49 | Inpatient (IN) | payer OTHER ==
[~2017-02-24] VITALS: Ht 160 cm; Wt 71.7 kg
[2017-02-24] MEDS ORDERED: SODIUM CHLORIDE 0.9% 1L BAG IV* STA (15:41)
[2017-02-24] MEDS ORDERED: VANCOMYCIN 1 GM (PMX) 250 ML IVPB STA (15:41)
[2017-02-24] MEDS ORDERED: ACETAMINOPHEN 325 MG TAB PO STA (15:41)
[2017-02-24] MEDS ORDERED: CEFTRIAXONE 1 GM/50 ML (PMX) 50 ML IVPB ONE (16:00)
[2017-02-24 16:06] LABS: HEMATOCRIT 33.7 % (37.0-47.0); HEMOGLOBIN 11.3 g/dl (12.0-16.0); MEAN CORPUSCULAR HEMOGLOBIN 30.7 pg (29.0-33.0); MEAN CORPUSCULAR HGB CONC 33.5 g/dl (32.0-37.0); MEAN CORPUSCULAR VOLUME 91.6 fl (82.0-101.0); PLATELET COUNT 217 10^3/UL (140-415); RED BLOOD COUNT 3.68 10^6/ul (4.20-5.40); WHITE BLOOD COUNT 11.9 10^3/ul (4.8-10.8)
[2017-02-24 16:10] LABS: POSITIVE DIFF @See below
[2017-02-24 16:22] LABS: INR 1.08; PT RATIO 1.1
[2017-02-24 16:23] LABS: PARTIAL THROMBOPLASTIN TIME 39.6 Sec (25.0-35.0)
[2017-02-24 16:25] LABS: ALBUMIN 3.5 g/dl (3.3-4.9); ALBUMIN/GLOBULIN RATIO 1.09; BILIRUBIN,INDIRECT 0.8 mg/dl (0-1.1); BILIRUBIN,TOTAL 0.8 mg/dl (0.2-1.3); CALCIUM 8.9 mg/dl (8.4-10.2); CREATININE 1.26 mg/dl (0.44-1.00); TOTAL PROTEIN 6.7 g/dl (6.1-8.1)
[2017-02-24 16:44] LABS: GIANT THROMBO% (M) 1 % (0-0); MONOCYTES % (M) 4 % (0-11); PLATELET ESTIMATE NORMAL; TROPONIN-I 0.311 ng/ml (0.00-0.12)
--- NOTE | 2017-02-24 16:45 | RADRPT ---
PROCEDURE: XR Chest. CLINICAL INDICATION: Possible Sepsis TECHNIQUE: Single frontal view of the chest was obtained COMPARISON: Chest x-ray 01/15/2017 FINDINGS: A cardiac loop recorder again projects over the left chest wall, in similar position presented which is in projection. The cardiac silhouette is mildly enlarged, unchanged. There are atherosclerotic calcifications of the aorta. No pneumothorax is identified. There is new mild pulmonary vascular congestion. Increased ill-defined left retrocardiac opacity represent atelectasis, consolidation, and / or small partially layering left pleural effusion. There are degenerative changes of the visualized spine. IMPRESSION: 1. There was slight increase in ill-defined left retrocardiac opacity which may represent worsening atelectasis, consolidation, and / or small partially layering left pleural effusion. 2. Mild cardiomegaly. 3. Thoracic aortic atherosclerosis. RPTAT: PP Physician Randolph Date Time Electronically viewed and signed by Physician Randolph on 02/24/2017 16:45 MAMTA/
[2017-02-24] MEDS ORDERED: LEVA0.634 INHALATION (17:54)
[2017-02-24] MEDS ORDERED: ACET325T45 PO (17:55)
[2017-02-24] MEDS ORDERED: PANT40TA3 PO (17:56)
[2017-02-24] MEDS ORDERED: CLOP75TA27 PO (17:57)
[2017-02-24] MEDS ORDERED: MV-M1TAB37 PO (17:58)
[2017-02-24] MEDS ORDERED: HYDR-906 PO (17:59)
[2017-02-24] MEDS ORDERED: ENOXAPARIN 80 MG/0.8 ML SYG SC SCH (18:00)
[2017-02-24] MEDS ORDERED: GLUC1VIA6 IJ (18:02)
[2017-02-24] MEDS ORDERED: DOCU-159 PO (18:06)
[2017-02-24] MEDS ORDERED: CAND16TA11 PO (18:08)
[2017-02-24 18:20] LABS: ADD UMIC YES; UR ASCORBIC ACID 40 mg/dL (NEGATIVE); UR BILIRUBIN (Dip) NEGATIVE (NEGATIVE); UR BLOOD (Dip) NEGATIVE (NEGATIVE); UR CLARITY CLOUDY (CLEAR); UR COLOR AMBER (YELLOW); UR GLUCOSE (Dip) NEGATIVE (NEGATIVE); UR KETONES (Dip) TRACE mg/dL (NEGATIVE); UR LEUKOCYTE ESTERASE (Dip) TRACE Leu/ul (NEGATIVE); UR MUCUS FEW /HPF (NONE SEEN); UR NITRITE (Dip) NEGATIVE (NEGATIVE); UR RBC 0 /HPF (0-5); UR SPECIFIC GRAVITY (Dip) 1.023 (1.003-1.030); UR TOTAL PROTEIN (Dip) 1+ mg/dl (NEGATIVE); UR UROBILINOGEN (Dip) NEGATIVE (NEGATIVE)
--- NOTE | 2017-02-24 18:30 | ERA ---
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 Patient says she has had a cough for 3 or 4 days with productive sputum and developed a fever today. She says she has been eating well over the past 2 days and has general malaise and fatigue. She denies any headache neck pain photophobia no shortness of breath abdominal pain nausea vomiting diarrhea or dysuria. ROS All systems reviewed and are negative except as per history of present illness. Medications Home Meds Reported Medications Candesartan Cilexetil (Candesartan Cilexetil) 16 Mg Tablet, 16 MG PO DAILY, TAB HOLD FOR SBP BELOW 110 02/24/17 Docusate Sodium* (Docusate Sodium*) 100 Mg Capsule, 200 MG PO QHS, #60 CAP 02/24/17 Glucagon HCl (Glucagon HCl) 1 Mg Vial, 1 MG IJ Q15MIN Y for NEEDED, VIAL FOR BS BELOW 70. REPEAT Q15MIN WITH BS>80 02/24/17 Hydrocodone/Acetaminophen ([place] 5-325 Tablet) 1 Each Tablet, 1 EACH PO Q6H Y for PAIN LEVEL 7-9/10, TAB 02/24/17 Mv-Mn/FA/Vit K/Lycop/Lut/Zeaxa (Ocuvite Eye + Multi Tablet) 1 Each Tablet, 1 EACH PO DAILY, TAB 02/24/17 Clopidogrel Bisulfate (Clopidogrel) 75 Mg Tablet, 75 MG PO DAILY, #30 TAB 02/24/17 Pantoprazole* (Protonix*) 40 Mg Tablet.dr, 40 MG PO DAILY, TAB 02/24/17 Acetaminophen* (Acetaminophen*) 325 Mg Tablet, 650 MG PO Q4H Y for MILD PAIN LEVEL 1-3, #30 TAB 02/24/17 Levalbuterol Hcl* (Levalbuterol Hcl*) 0.63 Mg/3 Ml Vial.neb, 0.63 MG INHALATION Q6H Y for WHEEZING AND SOB, VIAL 02/24/17 Ascorbic Acid* (Vitamin C*) 500 Mg Capsule.sa, 500 MG PO DAILY, CAP 01/06/17 Acetaminophen* (Acetaminophen*) 500 MG Extra Strength Tablet, 1000 MG PO Q6H Y for MODERATE PAIN LEVEL 4-6, TAB 01/06/17 Linagliptin (TRADJENTA) 5 Mg Tablet, 5 MG PO DAILY, TAB 01/06/17 Multivits,Ca,Minerals/Iron/FA (Thera M Plus Tablet) 1 Each Tablet, 1 TAB PO DAILY, TAB 01/06/17 Polyethylene Glycol* (Miralax*) 17 Gm Powd.pack, 8.5 GM PO DAILY Y for CONSTIPATION, #30 PACKET 01/06/17 Magnesium Hydroxide* (Milk Of Magnesia*) 400 Mg/5 Ml Oral.susp, 30 ML PO DAILY Y for CONSTIPATION, ML 01/06/17 Atorvastatin* (Atorvastatin*) 80 Mg Tablet, 80 MG PO QHS, #30 TAB 01/06/17 Bisacodyl* (Bisacodyl*) 10 Mg Supp, 10 MG [place] DAILY Y for CONSTIPATION, SUPP 01/06/17 Na Phos,M-B/Na Phos,Di-Ba (Fleet Enema Extra) 230 Ml Enema, 230 ML RC Q48H PRN Y for CONSTIPATION, ENEMA 01/06/17 Salmeterol Xinaf/Fluticasone* (Advair*) 250-50 Diskus Inhaler, 1 INH INHALATION BID, #1 INHALER 01/06/17 Brimonidine Tartrate* (Alphagan P*) 0.1%-15 Ml Opht Drops, 1 DROP BOTH EYES BID , #1 EA INSTILL 1 DROP INTO BOTH EYES TWICE A DAY DIRECTED 12/05/16 Cholecalciferol* (Vitamin D3*) 1,000 Unit Tablet, 1000 UNIT PO BID, TAB 01/11/15 Aspirin* (Aspirin* EC) 81 Mg Tablet.dr, 81 MG PO DAILY, TAB 05/06/14 Discontinued Reported Medications Irbesartan-Hydrochlorothiazide (Irbesartan-Hydrochlorothiazide) 150-12.5 Mg Tab , 1 TAB PO DAILY, TAB 01/06/17 Levalbuterol Hcl* (Levalbuterol Hcl*) 0.63 Mg/3 Ml Vial.neb, 0.63 MG INHALATION Q6H Y for WHEEZING AND SOB, VIAL 01/06/17 Acetaminophen* (Acetaminophen*) 650 Mg Tablet, 650 MG PO Q6H Y for MILD PAIN LEVEL 1-3, #30 TAB 01/06/17 Clopidogrel Bisulfate (Clopidogrel) 75 Mg Tablet, 75 MG PO DAILY, #30 TAB 01/06/17 Famotidine* (Famotidine*) 20 Mg Tablet, 20 MG PO DAILY, #30 TAB 01/06/17 Hydrocodone/Acetaminophen ([place] 5-325 Tablet) 1 Each Tablet, 1 TAB PO Q6 Y for PAIN LEVEL 6-10, TAB 01/06/17 Enoxaparin Sodium* (Lovenox*) 30 Mg/0.3 Ml Disp.syrin, 30 MG SQ DAILY, SYR 01/06/17 Lisinopril* (Lisinopril*) 2.5 Mg Tablet, 2.5 MG PO DAILY, #30 TAB 01/06/17 Dextrose (Glucose Gel) 38 Gm Gel..gram., 38 GM PO PRN Y for BSUGAR BELOW 70 01/06/17 Cranberry Extract (Cranberry) 425 Mg Capsule, 425 MG PO DAILY, CAP 01/06/17 Carvedilol* (Coreg*) 3.125 Mg Tablet, 3.125 MG PO BID, #60 TAB 01/06/17 Docusate Sodium* (Docusate Sodium*) 100 Mg Capsule, 200 MG PO BID, #60 CAP 01/06/17 Clobetasol Propionate* (Temovate*) 0.05%-15gm Cream..g., 1 APPLIC TOP BID, #1 TUB 12/05/16 Beta Carotene (A) W-C & E/Min* (Ocuvite*) 1 Tab Tab, 1 TAB PO DAILY, TAB 05/06/14 Allergies Allergies: Coded Allergies: Penicillins (Unverified Allergy, Unknown, 02/24/17) PMhx/Soc History of Surgery: Yes (breast surgery hysterectomy) Anesthesia Reaction: No Hx Neurological Disorder: Yes (CVA LEFT SIDE. WEAKNESS) Hx Respiratory Disorders: No Hx Cardiac Disorders: Yes Hx Psychiatric Problems: No Hx Miscellaneous Medical Probl: Yes (CKD, GERD, DM, OSTEOPOROSIS, GLACOMA) Hx Alcohol Use: No Hx Substance Use: No Hx Tobacco Use: No Smoking Status: Unknown if ever smoked FmHx Family History: No coronary disease Physical Exam Vitals Vital Signs Date Time Temp Pulse Resp B/P Pulse Ox O2 Delivery O2 Flow Rate FiO2 02/24/17 16:14 Nasal Cannula 2 02/24/17 14:57 101.6 88 18 133/61 97 Physical Exam Const: Well-developed, well-nourished Head: Atraumatic, normocephalic Eyes: Normal Conjunctiva, PERRLA, EOMI, normal sclera, no nystagmus ENT: Normal External Ears, Nose and Mouth, moist mucus membranes. Neck: Full range of motion. No meningismus, no lymphadenopathy. Resp: Clear to auscultation bilaterally, no wheezing, rhonchi, rales Cardio: Regular rate and rhythm, no murmurs, S1 S2 present Abd: Soft, non tender x 4, non distended. Normal bowel sounds, no guarding or rebound, no pulsitile abdominal masses or bruits Skin: No petechiae or rashes, no ecchymosis , no maculopapular rash Back: No midline or flank tenderness Ext: No cyanosis, or edema, FROM x 4, normal inspection, neurovascularly intact x 4 Neur: Awake and alert, STR 5/5 x 2, left upper and lower extremity paralysis at baseline, sensation intact x 4, no focal findings, cerebellum intact Psych: Normal Mood and Affect Result Diagram: 02/24/17 1540 02/24/17 1540 Results 24 hrs Laboratory Tests Test 02/24/17 15:40 02/24/17 17:00 White Blood Count 11.910^3/ul Red Blood Count 3.6810^6/ul Hemoglobin 11.3g/dl Hematocrit 33.7% Mean Corpuscular Volume 91.6fl Mean Corpuscular Hemoglobin 30.7pg Mean Corpuscular Hemoglobin Concent 33.5g/dl Red Cell Distribution Width 13.0% Platelet Count 02107^3/UL Mean Platelet Volume 11.0fl Neutrophils % % Segmented Neutrophils % (Manual) 93% Lymphocytes % (Manual) 4% Monocytes % (Manual) 4% Eosinophils % % Nucleated Red Blood Cells % 0.0/100WBC Neutrophils # 10^3/ul Absolute Lymphocytes (Manual) 0.410^3/ul Absolute Monocytes (Manual) 0.410^3/ul Eosinophils # 10^3/ul Thrombocytosis 1% Platelet Estimate NORMAL Prothrombin Time 14.0Sec Prothrombin Time Ratio 1.1 INR International Normalized Ratio 1.08 Activated Partial Thromboplast Time 39.6Sec Sodium Level 135mmol/L Potassium Level 4.0mmol/L Chloride Level 95mmol/L Carbon Dioxide Level 27mmol/L Anion Gap 17 Blood Urea Nitrogen 28mg/dl Creatinine 1.26mg/dl Glucose Level 111mg/dl Lactic Acid Level 0.8mmol/L Calcium Level 8.9mg/dl Total Bilirubin 0.8mg/dl Direct Bilirubin 0.00mg/dl Indirect Bilirubin 0.8mg/dl Aspartate Amino Transf (AST/SGOT) 16IU/L Alanine Aminotransferase (ALT/SGPT) 25IU/L Alkaline Phosphatase 63IU/L Troponin I 0.311ng/ml Total Protein 6.7g/dl Albumin 3.5g/dl Globulin 3.20g/dl Albumin/Globulin Ratio 1.09 Urine Color NADINE Urine Clarity CLOUDY Urine pH 5.0 Urine Specific [place] 1.023 Urine Ketones TRACEmg/dL Urine Nitrite NEGATIVEmg/dL Urine Bilirubin NEGATIVEmg/dL Urine Urobilinogen NEGATIVEmg/dL Urine Leukocyte Esterase TRACELeu/ul Urine Microscopic RBC 0/HPF Urine Microscopic WBC 4/HPF Urine Mucus FEW/HPF Urine Hemoglobin NEGATIVEmg/dL Urine Glucose NEGATIVEmg/dL Urine Total Protein 1+mg/dl Current Medications Medications (Trade) Dose Ordered Sig/Alicia Route PRN Reason Start Time Stop Time Status Last Admin Dose Admin Sodium Chloride (NS) 2,020 ml BOLUS OVER 2 HOURS STAT IV* 02/24/17 15:41 02/24/17 15:45 DC 02/24/17 16:09 Acetaminophen 650 mg 650 mg ONCE STAT PO 02/24/17 15:41 02/24/17 15:45 DC 02/24/17 16:10 Vancomycin HCl 250 ml @ 125 mls/hr ONCE STAT IVPB 02/24/17 15:41 02/24/17 17:40 DC 02/24/17 16:30 Ceftriaxone Sodium (Rocephin) 50 ml @ 100 mls/hr ONCE ONCE IVPB 02/24/17 16:00 02/24/17 16:29 DC 02/24/17 16:10 Enoxaparin Sodium (Lovenox) 70 mg ONCE SC 02/24/17 18:00 02/24/17 23:00 Procedures/MDM EKG: Rate/Rhythm: Normal Sinus Rhythm,NL intervals QRS, ST, QT: NORMAL [place], QRS, QT] Impression: NORMAL EKG PROCEDURE: XR Chest. CLINICAL INDICATION: Possible Sepsis TECHNIQUE: Single frontal view of the chest was obtained COMPARISON: Chest x-ray 01/15/2017 FINDINGS: A cardiac loop recorder again projects over the left chest wall, in similar position presented which is in projection. The cardiac silhouette is mildly enlarged, unchanged. There are atherosclerotic calcifications of the aorta. No pneumothorax is identified. There is new mild pulmonary vascular congestion. Increased ill-defined left retrocardiac opacity represent atelectasis, consolidation, and / or small partially layering left pleural effusion. There are degenerative changes of the visualized spine. IMPRESSION: 1. There was slight increase in ill-defined left retrocardiac opacity which may represent worsening atelectasis, consolidation, and / or small partially layering left pleural effusion. 2. Mild cardiomegaly. 3. Thoracic aortic atherosclerosis. RPTAT: PP Physician Randolph Date Time Electronically viewed and signed by Physician Randolph on 02/24/2017 16: 45 RC/ CC: LUCIA HAMLIN DO Patient has retrocardiac pneumonia. Lactic acid is negative. Patient has elevated troponin likely due to cardiac sweating from the fever and pneumonia. She was given Lovenox subcu. She has not had any chest pain she states. We will admit her to the hospital for IV antibiotics, follow troponins, IV fluids Critical Care Time: 32 minutes Treatments/Evaluations: Close monitoring and treatment of unstable vital signs, cardiorespiratory, and neurologic status, while maintaining tight balance of fluid, respiratory, and cardiac interventions. This time includes discussing the case with the patient and the patient's family. This time does not include all procedures stated elsewhere in this record. This time also includes reviewing old records, labs and radiological studies. This time includes examining and re-examining the patient. Additionally, this time also includes arranging care with admitting and consulting physicians. Departure Diagnosis: Primary Impression: Myocardial infarction Qualified Code: I21.4 - Non-ST elevation (NSTEMI) myocardial infarction Additional Impression: Pneumonia Qualified Code: J18.9 - Pneumonia due to infectious organism, unspecified laterality, unspecified part of lung Condition: LUCIA Keller DO Feb 24, 2017 18:29
[2017-02-24] MEDS ORDERED: ALBUTEROL 0.083% (NEB) 2.5 MG/3 ML AMP NEB STA (19:13)
[2017-02-24] MEDS ORDERED: SOD CHLORIDE 0.9% 1,000 ML IV SCH (19:15)
[2017-02-24] MEDS ORDERED: ACETAMINOPHEN 325 MG TAB PO PRN (19:30)
[2017-02-24] MEDS ORDERED: ONDANSETRON 4 MG INJ IV PRN (19:30)
[2017-02-25] VITALS (12 sets, daily range): BP systolic 134–152; BP diastolic 60–69; PULSE 79–87; RESP 18–20; TEMP 101.3; Ht 160 cm; Wt 71.7 kg
[2017-02-25] MEDS ORDERED: MAGNESIUM HYDROXIDE 30ML CUP PO PRN (02:00)
[2017-02-25] MEDS ORDERED: ONDANSETRON 4 MG INJ IV PRN (02:00)
[2017-02-25] MEDS ORDERED: ACETAMINOPHEN 500 MG TAB PO PRN (02:00)
[2017-02-25] MEDS ORDERED: ACETAMINOPHEN 325 MG TAB PO PRN (02:00)
[2017-02-25] MEDS ORDERED: BISACODYL 10 MG SUPP PR PRN (02:00)
[2017-02-25] MEDS ORDERED: POLYETHYLENE GLYCOL 17 GM PACKET PO PRN (02:00)
[2017-02-25] MEDS: ACETAMINOPHEN 325 MG TAB PO PRN (02:53)
[2017-02-25] MEDS: LEVOFLOXACIN 500MG/D5W (PMX) 100 ML IVPB SCH (06:07)
[2017-02-25] MEDS: PANTOPRAZOLE (EC) 40 MG TAB PO SCH (06:07)
[2017-02-25] MEDS ORDERED: NA PHOSPHATE/BIPHOS 133 ML ENEMA PR PRN (07:30)
[2017-02-25 07:39] LABS: BASOPHILS % 0.1 % (0.0-2.0); EOSINOPHILS % 0.4 % (0.0-7.0); HEMATOCRIT 30.2 % (37.0-47.0); HEMOGLOBIN 9.9 g/dl (12.0-16.0); LYMPHOCYTES % 9.5 % (15.0-51.0); MEAN CORPUSCULAR HEMOGLOBIN 30.6 pg (29.0-33.0); MEAN CORPUSCULAR HGB CONC 32.8 g/dl (32.0-37.0); MEAN CORPUSCULAR VOLUME 93.2 fl (82.0-101.0); MEAN PLATELET VOLUME 11.1 fl (7.4-10.4); MONOCYTE # 0.3 10^3/ul (0.3-0.9); MONOCYTES % 2.5 % (0.0-11.0); NEUTROPHIL # 9.1 10^3/ul (1.6-7.5); NEUTROPHILS % 87.2 % (39.0-77.0); PLATELET COUNT 192 10^3/UL (140-415); RED BLOOD COUNT 3.24 10^6/ul (4.20-5.40); RED CELL DISTRIBUTION WIDTH 13.2 % (11.5-14.5); WHITE BLOOD COUNT 10.4 10^3/ul (4.8-10.8)
[2017-02-25 08:00] LABS: CALCIUM 8.2 mg/dl (8.4-10.2); CREATININE 1.1 mg/dl (0.44-1.00)
[2017-02-25 08:47] LABS: CHOL/HDL RATIO 3.1 RATIO
[2017-02-25] MEDS: MULTIVITAMINS/MINERALS TAB PO SCH (09:00)
[2017-02-25] MEDS ORDERED: [UNRECOGNIZED DRUG - OTHER] PO SCH (09:00)
[2017-02-25] MEDS ORDERED: CANDESARTAN CILEXETIL 16 MG PO SCH (09:00)
[2017-02-25] MEDS ORDERED: LOSARTAN 50 MG TAB PO SCH (09:00)
[2017-02-25] MEDS: LINAGLIPTIN 5 MG TABLET PO SCH (09:08)
[2017-02-25] MEDS: ASPIRIN (EC) 81 MG TAB PO SCH (09:08)
[2017-02-25] MEDS: CLOPIDOGREL 75 MG TAB PO SCH (09:08)
[2017-02-25] MEDS: ASCORBIC ACID 500 MG TAB PO SCH (09:08)
[2017-02-25] MEDS: SALMETEROL/FLUTICASONE 250/50 INHA INH SCH ×2 (09:51→20:57)
[2017-02-25] MEDS: CHOLECALCIFEROL 1,000 UNIT TAB PO SCH ×2 (09:51→21:00)
[2017-02-25] MEDS: BRIMONIDINE 0.1% 5 ML OPH BOTH EYES SCH ×2 (09:51→21:00)
--- NOTE | 2017-02-25 12:09 | CONS ---
Date/Time of Note Date/Time of Note DATE: 02/25/17 TIME: 12:04 Assessment/Plan Assessment/Plan Additional Assessment/Plan SIRS/sepsis Possible pneumonia Mildly elevated troponin History of CVA Left vertebral artery stenosis Hypertension Cerebral artery disease Diabetes Cardiomyopathy with ejection fraction 40% Paroxysmal atrial tachycardia -Patient with known history of vascular disease with multiple CVAs in the past. Troponin is mildly elevated and trending down, etiology likely multifactorial including sepsis, decreased renal clearance and possible demand ischemia. Would continue dual antiplatelet therapy, high-dose statin therapy, start beta- katherine, blood pressure control and monitoring for any hypotension. Continue telemetry monitoring. Treat sepsis. Consultation Date/Type/Reason Admit Date/Time Feb 24, 2017 at 19:16 Type of Consultation: cv Reason for Consultation Elevated troponin Hx of Present Illness This is a 76-year-old female known to me from previous admissions who presents with multiple complaints including fevers and chills, productive cough, shortness of breath and nausea over the past 3-4 days. Patient states she has been using nebulizer treatments but this has made her vomit. She complains of a productive cough which is painful when she coughs. She complains of shortness of breath when she coughs. Patient came to the emergency room and on laboratory studies, found to have elevated troponin for this reason cardiology consultation was requested. She denies any chest discomfort or shortness of breath at the current time. Chest discomfort occurs with coughing only. 12 point review of systems was performed with all pertinent positives and negatives mentioned above and all else is negative Past Medical History CVA Left vertebral artery stenosis Hypertension Cerebral artery disease Diabetes Cardiomyopathy Paroxysmal atrial tachycardia Past Surgical History Loop recorder Family History Significant Family History: no pertinent family hx Social History Alcohol Use: none Smoking Status: Never smoker Exam/Review of Systems Vital Signs Vitals Vital Signs Date Time Temp Pulse Resp B/P Pulse Ox O2 Delivery O2 Flow Rate FiO2 02/25/17 12:02 87 02/25/17 11:45 98.5 18 139/66 94 02/25/17 08:00 Nasal Cannula 2.0 Intake and Output 02/24/17 02/24/17 02/25/17 15:00 23:00 07:00 Intake Total 2270 ml Balance 2270 ml Exam Following commands, coughing at times during exam and history taking, no apparent distress Constitutional: alert, oriented Head: normocephalic Respiratory: other (Coarse breath sounds bilaterally with scattered rhonchi, minimal scattered wheezing) Cardiovascular: other (S1-S2 heard), regular rate and rhythm, systolic murmur Gastrointestinal: bowel sounds, non-tender, other (No guarding), soft Extremities: other (No edema) Results Result Diagram: 02/25/17 0656 02/25/17 0656 Results 24 hrs Laboratory Tests Test 02/24/17 15:40 02/24/17 17:00 02/24/17 18:00 02/24/17 19:40 White Blood Count 11.9 #H Red Blood Count 3.68 L Hemoglobin 11.3 L Hematocrit 33.7 L Mean Corpuscular Volume 91.6 Mean Corpuscular Hemoglobin 30.7 Mean Corpuscular Hemoglobin Concent 33.5 Red Cell Distribution Width 13.0 Platelet Count 217 Mean Platelet Volume 11.0 H Neutrophils % Segmented Neutrophils % (Manual) 93 H Lymphocytes % (Manual) 4 L Monocytes % (Manual) 4 Eosinophils % Nucleated Red Blood Cells % 0.0 Neutrophils # Absolute Lymphocytes (Manual) 0.4 L Absolute Monocytes (Manual) 0.4 Eosinophils # Thrombocytosis 1 H Platelet Estimate NORMAL Prothrombin Time 14.0 Prothrombin Time Ratio 1.1 INR International Normalized Ratio 1.08 Activated Partial Thromboplast Time 39.6 H Sodium Level 135 Potassium Level 4.0 Chloride Level 95 L Carbon Dioxide Level 27 Anion Gap 17 H Blood Urea Nitrogen 28 H Creatinine 1.26 H Glucose Level 111 Lactic Acid Level 0.8 1.0 1.2 Calcium Level 8.9 Total Bilirubin 0.8 Direct Bilirubin 0.00 Indirect Bilirubin 0.8 Aspartate Amino Transf (AST/SGOT) 16 Alanine Aminotransferase (ALT/SGPT) 25 Alkaline Phosphatase 63 Troponin I 0.311 *H Total Protein 6.7 Albumin 3.5 Globulin 3.20 Albumin/Globulin Ratio 1.09 Urine Color NADINE Urine Clarity CLOUDY A Urine pH 5.0 Urine Specific [place] 1.023 Urine Ketones TRACE A Urine Nitrite NEGATIVE Urine Bilirubin NEGATIVE Urine Urobilinogen NEGATIVE Urine Leukocyte Esterase TRACE A Urine Microscopic RBC 0 Urine Microscopic WBC 4 Urine Mucus FEW A Urine Hemoglobin NEGATIVE Urine Glucose NEGATIVE Urine Total Protein 1+ H Test 02/24/17 23:13 02/25/17 02:00 02/25/17 06:56 02/25/17 09:07 Bedside Glucose 145 106 Troponin I 0.215 *H 0.212 *H White Blood Count 10.4 Red Blood Count 3.24 L Hemoglobin 9.9 L Hematocrit 30.2 L Mean Corpuscular Volume 93.2 Mean Corpuscular Hemoglobin 30.6 Mean Corpuscular Hemoglobin Concent 32.8 Red Cell Distribution Width 13.2 Platelet Count 192 Mean Platelet Volume 11.1 H Neutrophils % 87.2 H Lymphocytes % 9.5 L Monocytes % 2.5 Eosinophils % 0.4 Basophils % 0.1 Nucleated Red Blood Cells % 0.0 Neutrophils # 9.1 H Lymphocytes # 1.0 Monocytes # 0.3 Eosinophils # 0.0 Basophils # 0.0 Nucleated Red Blood Cells # 0.0 Sodium Level 139 Potassium Level 4.0 Chloride Level 102 Carbon Dioxide Level 25 Anion Gap 16 Blood Urea Nitrogen 23 H Creatinine 1.10 H Glucose Level 119 Calcium Level 8.2 L Triglycerides Level 63 Cholesterol Level 81 L LDL Cholesterol, Calculated 42 HDL Cholesterol 26 L Cholesterol/HDL Ratio 3.1 Medications Medications Current Medications Ondansetron HCl 4 mg 4 mg Q4 PRN IV NAUSEA AND/OR VOMITING; Start 02/25/17 at 02:00 Levofloxacin/ Dextrose (Levaquin 500mg/ D5W 100 ml (Pmx)) 100 ml @ 100 mls/hr DAILY IVPB Last administered on 02/25/17 06:07; Admin Dose 100 MLS/HR; Start 02/25/17 at 06:00 Acetaminophen (Tylenol Tab) 650 mg Q4H PRN PO MILD PAIN LEVEL 1-3 Last administered on 02/25/17 02:53; Admin Dose 650 MG; Start 02/25/17 at 02:00 Ascorbic Acid (Vitamin C) 500 mg DAILY PO Last administered on 02/25/17 09:08 ; Admin Dose 500 MG; Start 02/25/17 at 09:00 Aspirin (Halfprin) 81 mg DAILY PO Last administered on 02/25/17 09:08; Admin Dose 81 MG; Start 02/25/17 at 09:00 Atorvastatin Calcium (Lipitor) 80 mg QHS PO ; Start 02/25/17 at 21:00 Bisacodyl (Dulcolax Supp) 10 mg DAILY PRN IN CONSTIPATION; Start 02/25/17 at 02 :00 Brimonidine Tartrate (Alphagan P 0.1%) 1 drop BID BOTH EYES Last administered on 02/25/17 09:51; Admin Dose 1 DROP; Start 02/25/17 at 09:00 Cholecalciferol (Vitamin D) 1,000 unit BID PO Last administered on 02/25/17 09 :51; Admin Dose 1,000 UNIT; Start 02/25/17 at 09:00 Clopidogrel Bisulfate (plaVIX) 75 mg DAILY PO Last administered on 02/25/17 09 :08; Admin Dose 75 MG; Start 02/25/17 at 09:00 Docusate Sodium (Colace) 200 mg QHS PO ; Start 02/25/17 at 21:00 Linagliptin (Tradjenta) 5 mg DAILY PO Last administered on 02/25/17 09:08; Admin Dose 5 MG; Start 02/25/17 at 09:00 Magnesium Hydroxide (Milk Of Mag) 30 ml DAILY PRN PO CONSTIPATION; Start at 02:00 Multivitamins/ Minerals (Theragran-M) 1 tab DAILY PO ; Start 02/25/17 at 09:00 Pantoprazole (Protonix Tab) 40 mg DAILY@06 PO Last administered on 02/25/17 06 :07; Admin Dose 40 MG; Start 02/25/17 at 06:00 Polyethylene Glycol (Miralax) 8.5 gm DAILY PRN PO CONSTIPATION; Start 02/25/17 at 02:00 Salmeterol Xinafoate/ Fluticasone (Advair 250/50 Diskus) 1 inh BID INH Last administered on 02/25/17 09:51; Admin Dose 1 INH; Start 02/25/17 at 09:00 Sodium Biphosphate/ Sodium Phosphate (Fleet Enema) 133 ml Q48H PRN IN CONSTIPATION; Start 02/25/17 at 07:30 Losartan Potassium (Cozaar) 100 mg DAILY PO Last administered on 02/25/17 09: 08; Admin Dose 100 MG; Start 02/25/17 at 09:00 Procedures Procedures ECG done yesterday demonstrates sinus rhythm at 91 bpm, QRS 72 ms, nonspecific ST-T abnormality Omega Chinchilla DO Feb 25, 2017 12:09
[2017-02-25] MEDS ORDERED: DEXTROSE 50% 50 ML SYRINGE IV PRN ×2 (15:30)
[2017-02-25] MEDS ORDERED: GLUCOSE GEL 15 GRAM TUBE PO PRN ×2 (15:30)
[2017-02-25] MEDS ORDERED: GLUCAGON 1 MG INJ IM PRN (15:30)
[2017-02-25] MEDS ORDERED: GLUCOSE GEL 15 GRAM TUBE BUCCAL PRN (15:30)
--- NOTE | 2017-02-25 15:31 | HP ---
Date/Time of Note Date/Time of Note DATE: 02/25/17 TIME: 15:13 Assessment/Plan VTE Prophylaxis VTE Prophylaxis Intervention: SCD's Lines/Catheters IV Catheter Type (from [facility] Saline Lock Urinary Cath still in place: Yes Reason Cath still needed: other (indicate) (Discontinue) Assessment/Plan Assessment/Plan 76-year-old female with: 1. Pneumonia or bronchopneumonia, healthcare associated, agree with Levaquin and vancomycin. Blood cultures pending. Continue nebulizer treatment as needed , incentive spirometer, cough suppressant as needed. 2. Elevated troponins: Appreciate your evaluation from Dr. Chinchilla from cardiology, differential diagnosis including possibly demand ischemia, underlying infection, renal disease. Patient already had an echocardiogram approximately a month and a half ago known cardiomyopathy with ejection fraction of 40%. Continue dual antiplatelet therapy in setting of stroke. Continue medical management including beta blockers. Of note patient still has a loop recorder in place no arrhythmias have been reported 3. Diabetes mellitus: Resume Tradjenta, sliding scale insulin and diabetic diet 4. Hypertension: Continue current medication 5. Hyperlipidemia: Continue statin therapy 6. 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 7. COPD per history: Continue nebulizer treatments and Advair, also treating underlying bronchopneumonia 8. Chronic anemia: Stable H/H 9. Chronic kidney disease: Stable renal function Prophylaxis: SCDs to lower extremities for DVT prophylaxis, Protonix for GI prophylaxis Disposition: Monitor on telemetry, IV antibiotics, hopefully patient will remain stable in the next 48 hours for discharge back to SNF. HPI/ROS Admit Date/Time Admit Date/Time Feb 24, 2017 at 19:16 Hx of Present Illness Chief complaint: Fever, cough History of presenting illness: This is a 76-year-old female with known history of multiple CVAs, currently has a loop recorder but no arrhythmias reported, has been a snf facility for rehabilitation since her last CVA and was sent over to the hospital for evaluation for fever and cough. The patient' s daughter at the bedside is able to give most of the history of presenting illness. She reports that the patient has been having a cough for the past 3 days. She had a fever of 102 yesterday, apparently she is in a cold room with a neighbor who is coughing currently. She she also lost her appetite for the past 3 days. Patient likely with bronchopneumonia on admission. She was also found to have slightly elevated troponin. She has been admitted to telemetry. This morning she is afebrile, hemodynamically stable. She has been evaluated by Dr. Chinchilla. Troponins are trending down. She is on Levaquin and vancomycin for probable healthcare associated pneumonia or bronchopneumonia. Will follow up on her cultures. She has chronic left hemiparesis which is unchanged. ROS Constitutional: fatigue, poor po Respiratory: cough (Productive of yellow sputum), sputum, wheezing Cardiovascular: no complaints Gastrointestinal: no complaints Genitourinary: no complaints Skin: no complaints PMH/Family/Social Past Medical History Old cerebrovascular accident with left hemiparesis Diabetes mellitus Medical History: congestive heart failure (Systolic dysfunction, ejection fraction 40%), diabetes, high cholesterol, hypertension, renal disease Past Surgical History Status post hysterectomy remotely Family History Significant Family History: no pertinent family hx Social History Alcohol Use: none Smoking Status: Former smoker Drug Use: none Exam/Review of Systems Vital Signs Vitals Vital Signs Date Time Temp Pulse Resp B/P Pulse Ox O2 Delivery O2 Flow Rate FiO2 02/25/17 12:59 84 02/25/17 11:45 98.5 18 139/66 94 02/25/17 08:00 Nasal Cannula 2.0 Intake and Output 02/24/17 02/24/17 02/25/17 15:00 23:00 07:00 Intake Total 2270 ml Balance 2270 ml Exam Constitutional: alert, oriented, other (Left hemiparesis) Respiratory: diminished breath sounds (Bases bilaterally, occasional expiratory wheezes), normal air movement Cardiovascular: nl pulses, regular rate and rhythm Gastrointestinal: non-tender, soft Musculoskeletal: other (Left hemiparesis chronic) Extremities: normal pulses, other (No edema, clubbing or cyanosis) Neurological: [employer] II-XII intact, focal weakness (Left hemiparesis chronic), nl mental status, nl speech Labs Result Diagram: 02/25/1765502/25/17655 Medications Medications Home meds reviewed Current Medications Ondansetron HCl 4 mg 4 mg Q4 PRN IV NAUSEA AND/OR VOMITING; Start 02/25/17 at 02:00 Levofloxacin/ Dextrose (Levaquin 500mg/ D5W 100 ml (Pmx)) 100 ml @ 100 mls/hr DAILY IVPB Last administered on 02/25/17 06:07; Admin Dose 100 MLS/HR; Start 02/25/17 at 06:00 Acetaminophen (Tylenol Tab) 650 mg Q4H PRN PO MILD PAIN LEVEL 1-3 Last administered on 02/25/17 02:53; Admin Dose 650 MG; Start 02/25/17 at 02:00 Ascorbic Acid (Vitamin C) 500 mg DAILY PO Last administered on 02/25/17 09:08 ; Admin Dose 500 MG; Start 02/25/17 at 09:00 Aspirin (Halfprin) 81 mg DAILY PO Last administered on 02/25/17 09:08; Admin Dose 81 MG; Start 02/25/17 at 09:00 Atorvastatin Calcium (Lipitor) 80 mg QHS PO ; Start 02/25/17 at 21:00 Bisacodyl (Dulcolax Supp) 10 mg DAILY PRN [place] CONSTIPATION; Start 02/25/17 at 02 :00 Brimonidine Tartrate (Alphagan P 0.1%) 1 drop BID BOTH EYES Last administered on 02/25/17 09:51; Admin Dose 1 DROP; Start 02/25/17 at 09:00 Cholecalciferol (Vitamin D) 1,000 unit BID PO Last administered on 02/25/17 09 :51; Admin Dose 1,000 UNIT; Start 02/25/17 at 09:00 Clopidogrel Bisulfate (plaVIX) 75 mg DAILY PO Last administered on 02/25/17 09 :08; Admin Dose 75 MG; Start 02/25/17 at 09:00 Docusate Sodium (Colace) 200 mg QHS PO ; Start 02/25/17 at 21:00 Linagliptin (Tradjenta) 5 mg DAILY PO Last administered on 02/25/17 09:08; Admin Dose 5 MG; Start 02/25/17 at 09:00 Magnesium Hydroxide (Milk Of Mag) 30 ml DAILY PRN PO CONSTIPATION; Start at 02:00 Multivitamins/ Minerals (Theragran-M) 1 tab DAILY PO ; Start 02/25/17 at 09:00 Pantoprazole (Protonix Tab) 40 mg DAILY@06 PO Last administered on 02/25/17 06 :07; Admin Dose 40 MG; Start 02/25/17 at 06:00 Polyethylene Glycol (Miralax) 8.5 gm DAILY PRN PO CONSTIPATION; Start 02/25/17 at 02:00 Salmeterol Xinafoate/ Fluticasone (Advair 250/50 Diskus) 1 inh BID INH Last administered on 02/25/17t 09:51; Admin Dose 1 INH; Start 02/25/17 at 09:00 Sodium Biphosphate/ Sodium Phosphate (Fleet Enema) 133 ml Q48H PRN [place] CONSTIPATION; Start 02/25/17 at 07:30 Losartan Potassium (Cozaar) 50 mg BID PO ; Start 02/26/17 at 09:00 Carvedilol (Coreg) 3.125 mg BID PO ; Start 02/25/17 at 21:00 Miscellaneous Information (* Miscellaneous Pharmacy Order) Discontinue current oral sulfonylur... ONCE ONCE XX ; Start 02/25/17 at 15:30; Stop 02/25/17 at 15: 31 Diagnostic Test (Pha) (Accu-Chek) 1 ea 02 XX ; Start 02/26/17 at 02:00 Miscellaneous Information (* Miscellaneous Pharmacy Order) HYPOGLYCEMIA PROTOCOL w... ONCE ONCE XX ; Start 02/25/17 at 15:30; Stop 02/25/17 at 15:31 Miscellaneous Information (* Miscellaneous Pharmacy Order) Discontinue all previ... ONCE ONCE XX ; Start 02/25/17 at 15:30; Stop 02/25/17 at 15:31 Diagnostic Test (Pha) (Accu-Chek) 1 ea 02 XX ; Start 02/26/17 at 02:00 Miscellaneous Information 1 ea NOTE XX ; Start 02/25/17 at 15:30 Glucose (Glutose) 15 gm Q15M PRN PO DECREASED GLUCOSE; Start 02/25/17 at 15:30 Glucose (Glutose) 22.5 gm Q15M PRN PO DECREASED GLUCOSE; Start 02/25/17 at 15: 30 Dextrose (D50w Syringe) 25 ml Q15M PRN IV DECREASED GLUCOSE; Start 02/25/17 at 15:30 Dextrose (D50w Syringe) 50 ml Q15M PRN IV DECREASED GLUCOSE; Start 02/25/17 at 15:30 Glucagon (Glucagen) 1 mg Q15M PRN IM DECREASED GLUCOSE; Start 02/25/17 at 15:30 Glucose (Glutose) 15 gm Q15M PRN BUCCAL DECREASED GLUCOSE; Start 02/25/17 at 15 :30 Procedures Procedures PROCEDURE: XR Chest. CLINICAL INDICATION: Possible Sepsis TECHNIQUE: Single frontal view of the chest was obtained COMPARISON: Chest x-ray 01/15/2017 FINDINGS: A cardiac loop recorder again projects over the left chest wall, in similar position presented which is in projection. The cardiac silhouette is mildly enlarged, unchanged. There are atherosclerotic calcifications of the aorta. No pneumothorax is identified. There is new mild pulmonary vascular congestion. Increased ill-defined left retrocardiac opacity represent atelectasis, consolidation, and / or small partially layering left pleural effusion. There are degenerative changes of the visualized spine. IMPRESSION: 1. There was slight increase in ill-defined left retrocardiac opacity which may represent worsening atelectasis, consolidation, and / or small partially layering left pleural effusion. 2. Mild cardiomegaly. 3. Thoracic aortic atherosclerosis. RPTAT: PP Physician Randolph Date Time Electronically viewed and signed by Physician Randolph on 02/24/2017 16: 45 DARRELL MARQUIS Feb 25, 2017 15:25
[2017-02-25] MEDS: INSULIN ASPART [NOVOLOG] 3 ML PEN SC SCH ×2 (18:05→21:00)
[2017-02-25] MEDS: DOCUSATE SODIUM 100 MG CAP PO SCH (21:00)
[2017-02-25] MEDS: ATORVASTATIN 80 MG TAB PO SCH (21:01)
[2017-02-25] MEDS: LEVALBUTEROL (NEB) 0.63 MG/3 ML AMP HHN PRN (21:02)
[2017-02-26] VITALS (14 sets, daily range): BP systolic 100–178; BP diastolic 58–86; PULSE 61–84; RESP 17–64
[2017-02-26] MEDS: ACCU-CHEK XX SCH ×2 (01:30→01:31)
[2017-02-26] MEDS: PANTOPRAZOLE (EC) 40 MG TAB PO SCH (06:24)
[2017-02-26 06:46] LABS: BASOPHILS % 0.1 % (0.0-2.0); EOSINOPHILS # 0.2 10^3/ul (0.0-0.5); EOSINOPHILS % 3.2 % (0.0-7.0); HEMOGLOBIN 9.9 g/dl (12.0-16.0); LYMPHOCYTES # 0.8 10^3/ul (0.8-2.9); LYMPHOCYTES % 11.3 % (15.0-51.0); MEAN CORPUSCULAR HEMOGLOBIN 30.5 pg (29.0-33.0); MEAN CORPUSCULAR VOLUME 92.3 fl (82.0-101.0); MEAN PLATELET VOLUME 11.2 fl (7.4-10.4); MONOCYTE # 0.3 10^3/ul (0.3-0.9); MONOCYTES % 3.6 % (0.0-11.0); NEUTROPHIL # 5.6 10^3/ul (1.6-7.5); NEUTROPHILS % 81.5 % (39.0-77.0); PLATELET COUNT 226 10^3/UL (140-415); RED BLOOD COUNT 3.25 10^6/ul (4.20-5.40); WHITE BLOOD COUNT 6.9 10^3/ul (4.8-10.8)
[2017-02-26 07:04] LABS: MAGNESIUM 1.8 mg/dl (1.7-2.5); PHOSPHORUS 3.4 mg/dl (2.5-4.9)
[2017-02-26 07:10] LABS: CALCIUM 8.5 mg/dl (8.4-10.2); CREATININE 0.91 mg/dl (0.44-1.00); POTASSIUM 4.1 mmol/L (3.5-5.1)
[2017-02-26] MEDS: INSULIN ASPART [NOVOLOG] 3 ML PEN SC SCH ×4 (08:00→20:42)
[2017-02-26] MEDS: MULTIVITAMINS/MINERALS TAB PO SCH (08:20)
[2017-02-26] MEDS: ASPIRIN (EC) 81 MG TAB PO SCH (08:20)
[2017-02-26] MEDS: CHOLECALCIFEROL 1,000 UNIT TAB PO SCH ×2 (08:20→20:30)
[2017-02-26] MEDS: ACETAMINOPHEN 325 MG TAB PO PRN (08:20)
[2017-02-26] MEDS: LINAGLIPTIN 5 MG TABLET PO SCH (08:20)
[2017-02-26] MEDS: CLOPIDOGREL 75 MG TAB PO SCH (08:20)
[2017-02-26] MEDS: ASCORBIC ACID 500 MG TAB PO SCH (08:20)
[2017-02-26] MEDS: LEVOFLOXACIN 500MG/D5W (PMX) 100 ML IVPB SCH (08:21)
[2017-02-26] MEDS: LOSARTAN 50 MG TAB PO SCH ×2 (08:21→20:30)
[2017-02-26] MEDS: SALMETEROL/FLUTICASONE 250/50 INHA INH SCH ×2 (08:21→20:30)
[2017-02-26] MEDS: BRIMONIDINE 0.1% 5 ML OPH BOTH EYES SCH ×2 (08:22→20:30)
--- NOTE | 2017-02-26 10:17 | CONS ---
Date/Time of Note Date/Time of Note DATE: 02/26/17 TIME: 10:11 Assessment/Plan Assessment/Plan Additional Assessment/Plan Chest x-ray was reviewed from of this month which is showing a scant left lower lobe infiltrate/atelectasis/pleural effusion. Assessment recommendations; 1. Patient admitted with bronchopneumonia involving the left lower lobe. 2. Multiple other comorbidities including history of CVA, diabetes, hypertension and COPD. Continue current treatment. Will obtain follow-up chest x-ray. Consultation Date/Type/Reason Admit Date/Time Feb 24, 2017 at 19:16 Date of Consultation: Feb 26, 2017 Type of Consultation: Pulmonary Reason for Consultation Pulmonary consultation requested for evaluation of pneumonia. History of presenting illness; patient is a pleasant 76-year-old lady was admitted on the of this month transfer from senior care with complaints of shortness of breath chest congestion. Upon evaluation a chest x-ray was done which is showing a left lower lobe infiltrate/pleural effusion. The patient still feeling some shortness of breath, denies any chest pain, complain of cough with very scant sputum production. Denies any fever or chills. Any nausea vomiting. Past medical history; 1. 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 2. COPD. 3. Anemia. 4. Diabetes. 5. Hypertension. 6. History of hysterectomy. Medications; reviewed. Allergies; penicillin. Social history; patient is an ex-smoker. No history of alcohol or drug abuse. Family history; she is a . She has 3 children. Various family members have diabetes hypertension in the family. 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 Review of systems; denies any headache, visual changes. Sinus symptoms. Any chest pain. Complains of mild shortness of breath. Copies of cough without any sputum production. Denies any abdominal pain, nausea or vomiting. Denies any edema. Denies any orthopnea. Denies any GI or urinary symptoms. Has fair appetite. Denies any weight loss. General exam; elderly woman, awake alert currently in no distress. Respiratory: cough (Productive of yellow sputum), sputum, wheezing Cardiovascular: no complaints Gastrointestinal: no complaints Genitourinary: no complaints Skin: no complaints Past Medical History Medical History: congestive heart failure (Systolic dysfunction, ejection fraction 40%), diabetes, high cholesterol, hypertension, renal disease Social History Alcohol Use: none Smoking Status: Former smoker Drug Use: none Exam/Review of Systems Vital Signs Vitals Vital Signs Date Time Temp Pulse Resp B/P Pulse Ox O2 Delivery O2 Flow Rate FiO2 02/26/17 08:07 80 02/26/17 07:49 98.9 19 154/70 99 02/26/17 06:25 Nasal Cannula 02/25/17 21:39 2.0 Intake and Output 02/25/17 02/25/17 02/26/17 14:59 22:59 06:59 Intake Total 300 ml 900 ml 600 ml Output Total 450 ml 750 ml 400 ml Balance -150 ml 150 ml 200 ml Exam HEENT exam; supple neck, no JVD. No lymphadenopathy. Pharynx is clear. Patient has fair dentition. Has bilateral cataracts. Pupils are midsize and reactive to light bilaterally and equally. Chest exam; diminished breath on lung bases bilaterally upper lobes are clear. S1-S2 audible, no murmurs. Regular rhythm. Abdomen exam; soft, nontender. No organomegaly. Bowel sounds audible. Extremity exam; no peripheral edema. Pulses 1+ bilaterally. No clubbing. 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 Patient has left upper extremity paralysis with weakness involving the left lower extremity. Results Result Diagram: 02/26/17 0617 02/26/17 0616 Results 24 hrs Laboratory Tests Test 02/25/17 16:47 02/25/17 21:08 02/26/17 06:16 02/26/17 06:17 Bedside Glucose 125 118 Sodium Level 139 Potassium Level 4.1 Chloride Level 102 Carbon Dioxide Level 26 Anion Gap 15 Blood Urea Nitrogen 16 Creatinine 0.91 Glucose Level 118 Calcium Level 8.5 White Blood Count 6.9 # Red Blood Count 3.25 L Hemoglobin 9.9 L Hematocrit 30.0 L Mean Corpuscular Volume 92.3 Mean Corpuscular Hemoglobin 30.5 Mean Corpuscular Hemoglobin Concent 33.0 Red Cell Distribution Width 13.0 Platelet Count 226 Mean Platelet Volume 11.2 H Neutrophils % 81.5 H Lymphocytes % 11.3 L Monocytes % 3.6 Eosinophils % 3.2 Basophils % 0.1 Nucleated Red Blood Cells % 0.0 Neutrophils # 5.6 Lymphocytes # 0.8 Monocytes # 0.3 Eosinophils # 0.2 Basophils # 0.0 Nucleated Red Blood Cells # 0.0 Test 02/26/17 06:30 02/26/17 08:05 Phosphorus Level 3.4 Magnesium Level 1.8 Bedside Glucose 116 Medications Medications Current Medications Ondansetron HCl 4 mg 4 mg Q4 PRN IV NAUSEA AND/OR VOMITING; Start 02/25/17 at 02:00 Levofloxacin/ Dextrose (Levaquin 500mg/ D5W 100 ml (Pmx)) 100 ml @ 100 mls/hr DAILY IVPB Last administered on 02/26/17 08:21; Admin Dose 100 MLS/HR; Start 02/25/17 at 06:00 Acetaminophen (Tylenol Tab) 650 mg Q4H PRN PO MILD PAIN LEVEL 1-3 Last administered on 02/26/17 08:20; Admin Dose 650 MG; Start 02/25/17 at 02:00 Ascorbic Acid (Vitamin C) 500 mg DAILY PO Last administered on 02/26/17 08:20 ; Admin Dose 500 MG; Start 02/25/17 at 09:00 Aspirin (Halfprin) 81 mg DAILY PO Last administered on 02/26/17 08:20; Admin Dose 81 MG; Start 02/25/17 at 09:00 Atorvastatin Calcium (Lipitor) 80 mg QHS PO Last administered on 02/25/17 21: 01; Admin Dose 80 MG; Start 02/25/17 at 21:00 Bisacodyl (Dulcolax Supp) 10 mg DAILY PRN [place] CONSTIPATION; Start 02/25/17 at 02 :00 Brimonidine Tartrate (Alphagan P 0.1%) 1 drop BID BOTH EYES Last administered on 02/26/17 08:22; Admin Dose 1 DROP; Start 02/25/17 at 09:00 Cholecalciferol (Vitamin D) 1,000 unit BID PO Last administered on 02/26/17 08 :20; Admin Dose 1,000 UNIT; Start 02/25/17 at 09:00 Clopidogrel Bisulfate (plaVIX) 75 mg DAILY PO Last administered on 02/26/17 08 :20; Admin Dose 75 MG; Start 02/25/17 at 09:00 Docusate Sodium (Colace) 200 mg QHS PO Last administered on 02/25/17 21:00; Admin Dose 200 MG; Start 02/25/17 at 21:00 Linagliptin (Tradjenta) 5 mg DAILY PO Last administered on 02/26/17 08:20; Admin Dose 5 MG; Start 02/25/17 at 09:00 Magnesium Hydroxide (Milk Of Mag) 30 ml DAILY PRN PO CONSTIPATION; Start at 02:00 Multivitamins/ Minerals (Theragran-M) 1 tab DAILY PO Last administered on 08:20; Admin Dose 1 TAB; Start 02/25/17 at 09:00 Pantoprazole (Protonix Tab) 40 mg DAILY@06 PO Last administered on 02/26/17 06 :24; Admin Dose 40 MG; Start 02/25/17 at 06:00 Polyethylene Glycol (Miralax) 8.5 gm DAILY PRN PO CONSTIPATION; Start 02/25/17 at 02:00 Salmeterol Xinafoate/ Fluticasone (Advair 250/50 Diskus) 1 inh BID INH Last administered on 02/26/17 08:21; Admin Dose 1 INH; Start 02/25/17 at 09:00 Sodium Biphosphate/ Sodium Phosphate (Fleet Enema) 133 ml Q48H PRN [place] CONSTIPATION; Start 02/25/17 at 07:30 Losartan Potassium (Cozaar) 50 mg BID PO Last administered on 02/26/17 08:21; Admin Dose 50 MG; Start 02/26/17 at 09:00 Carvedilol (Coreg) 3.125 mg BID PO Last administered on 02/26/17 08:21; Admin Dose 3.125 MG; Start 02/25/17 at 21:00 Diagnostic Test (Pha) (Accu-Chek) 1 ea 02 XX ; Start 02/26/17 at 02:00 Diagnostic Test (Pha) (Accu-Chek) 1 ea 02 XX ; Start 02/26/17 at 02:00 Miscellaneous Information 1 ea NOTE XX ; Start 02/25/17 at 15:30 Glucose (Glutose) 15 gm Q15M PRN PO DECREASED GLUCOSE; Start 02/25/17 at 15:30 Glucose (Glutose) 22.5 gm Q15M PRN PO DECREASED GLUCOSE; Start 02/25/17 at 15: 30 Dextrose (D50w Syringe) 25 ml Q15M PRN IV DECREASED GLUCOSE; Start 02/25/17 at 15:30 Dextrose (D50w Syringe) 50 ml Q15M PRN IV DECREASED GLUCOSE; Start 02/25/17 at 15:30 Glucagon (Glucagen) 1 mg Q15M PRN IM DECREASED GLUCOSE; Start 02/25/17 at 15:30 Glucose (Glutose) 15 gm Q15M PRN BUCCAL DECREASED GLUCOSE; Start 02/25/17 at 15 :30 LORIE LEAL Feb 26, 2017 10:17
[2017-02-26] MEDS ORDERED: GABA100C14 PO (10:55)
[2017-02-26] MEDS: LEVALBUTEROL (NEB) 0.63 MG/3 ML AMP HHN PRN (11:30)
--- NOTE | 2017-02-26 11:51 | PN ---
Date/Time of Note Date/Time of Note DATE: 02/26/17 TIME: 11:44 Assessment/Plan VTE Prophylaxis VTE Prophylaxis Intervention: LMWH Lines/Catheters IV [facility]ter [facility]from [facility] Urinary Cath still in place: No Assessment/Plan Assessment/Plan 76-year-old female with: 1. Pneumonia or bronchopneumonia, healthcare associated, Continue Levaquin and vancomycin. Blood cultures no growth to date0 Continue nebulizer treatment as needed, incentive spirometer, cough suppressant as needed and pulmonary toilet. 2. Elevated troponins: Appreciate your evaluation from Dr. Chinchilla from cardiology, differential diagnosis including possibly demand ischemia, underlying infection, renal disease. Patient already had an echocardiogram approximately a month and a half ago known cardiomyopathy with ejection fraction of 40%. Continue dual antiplatelet therapy in setting of stroke. Continue medical management including beta blockers. Of note patient still has a loop recorder in place no arrhythmias have been reported 3. Diabetes mellitus: Resume Tradjenta, sliding scale insulin and diabetic diet 4. Hypertension: Continue current medication 5. Hyperlipidemia: Continue statin therapy 6. 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 Physical therapy reordered 7. COPD per history: Continue nebulizer treatments and Advair, also treating underlying bronchopneumonia 8. Chronic anemia: Stable H/H 9. Chronic kidney disease: Stable renal function Prophylaxis: SCDs to lower extremities for DVT prophylaxis, Protonix for GI prophylaxis Disposition: Monitor on telemetry, IV antibiotics, hopefully patient will remain stable in the next 24 hours for discharge back to SNF. Subjective 24 Hr Interval Summary Free Text/Dictation Patient is feeling better, afebrile, white blood cell count within normal, she still has some congestion. She does have bronchopneumonia and required antibiotic treatment. Troponins have trended down. According to cardiology no further testing to be done. We will plan for discharge back to half-way facility by tomorrow Exam/Review of Systems Vital Signs Vitals Vital Signs Date Time Temp Pulse Resp B/P Pulse Ox O2 Delivery O2 Flow Rate FiO2 02/26/17 11:33 98 3.0 02/26/17 11:33 76 20 Nasal Cannula 02/26/17 07:49 98.9 154/70 Intake and Output 02/25/17 02/25/17 02/26/17 15:00 23:00 07:00 Intake Total 300 ml 900 ml 600 ml Output Total 450 ml 750 ml 400 ml Balance -150 ml 150 ml 200 ml Exam Constitutional: alert, oriented, other (Left hemiparesis), well developed Respiratory: diminished breath sounds (Basis bilateral), normal air movement, wheezing (Occasional) Cardiovascular: nl pulses, regular rate and rhythm Gastrointestinal: non-tender, soft Musculoskeletal: other (Left hemiparesis) Extremities: normal pulses, other (No edema, clubbing or cyanosis) 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, focal weakness (Left hemiparesis), nl mental status, nl speech Results Result Diagram: 02/26/1717 02/26/17 0616 Results 24 hrs Laboratory Tests Test 02/25/17 16:47 02/25/17 21:08 02/26/17 06:16 02/26/17 06:17 Bedside Glucose 125 118 Sodium Level 139 Potassium Level 4.1 Chloride Level 102 Carbon Dioxide Level 26 Anion Gap 15 Blood Urea Nitrogen 16 Creatinine 0.91 Glucose Level 118 Calcium Level 8.5 White Blood Count 6.9 # Red Blood Count 3.25 L Hemoglobin 9.9 L Hematocrit 30.0 L Mean Corpuscular Volume 92.3 Mean Corpuscular Hemoglobin 30.5 Mean Corpuscular Hemoglobin Concent 33.0 Red Cell Distribution Width 13.0 Platelet Count 226 Mean Platelet Volume 11.2 H Neutrophils % 81.5 H Lymphocytes % 11.3 L Monocytes % 3.6 Eosinophils % 3.2 Basophils % 0.1 Nucleated Red Blood Cells % 0.0 Neutrophils # 5.6 Lymphocytes # 0.8 Monocytes # 0.3 Eosinophils # 0.2 Basophils # 0.0 Nucleated Red Blood Cells # 0.0 Test 02/26/17 06:30 02/26/17 08:05 Phosphorus Level 3.4 Magnesium Level 1.8 Bedside Glucose 116 Medications Medications Current Medications Ondansetron HCl 4 mg 4 mg Q4 PRN IV NAUSEA AND/OR VOMITING; Start 02/25/17 at 02:00 Levofloxacin/ Dextrose (Levaquin 500mg/ D5W 100 ml (Pmx)) 100 ml @ 100 mls/hr DAILY IVPB Last administered on 02/26/17t 08:21; Admin Dose 100 MLS/HR; Start 02/25/17 at 06:00 Acetaminophen (Tylenol Tab) 650 mg Q4H PRN PO MILD PAIN LEVEL 1-3 Last administered on 02/26/17 08:20; Admin Dose 650 MG; Start 02/25/17 at 02:00 Ascorbic Acid (Vitamin C) 500 mg DAILY PO Last administered on 02/26/17 08:20 ; Admin Dose 500 MG; Start 02/25/17 at 09:00 Aspirin (Halfprin) 81 mg DAILY PO Last administered on 02/26/17 08:20; Admin Dose 81 MG; Start 02/25/17 at 09:00 Atorvastatin Calcium (Lipitor) 80 mg QHS PO Last administered on 02/25/17 21: 01; Admin Dose 80 MG; Start 02/25/17 at 21:00 Bisacodyl (Dulcolax Supp) 10 mg DAILY PRN [place] CONSTIPATION; Start 02/25/17 at 02 :00 Brimonidine Tartrate (Alphagan P 0.1%) 1 drop BID BOTH EYES Last administered on 02/26/17 08:22; Admin Dose 1 DROP; Start 02/25/17 at 09:00 Cholecalciferol (Vitamin D) 1,000 unit BID PO Last administered on 02/26/17 08 :20; Admin Dose 1,000 UNIT; Start 02/25/17 at 09:00 Clopidogrel Bisulfate (plaVIX) 75 mg DAILY PO Last administered on 02/26/17 08 :20; Admin Dose 75 MG; Start 02/25/17 at 09:00 Docusate Sodium (Colace) 200 mg QHS PO Last administered on 02/25/17 21:00; Admin Dose 200 MG; Start 02/25/17 at 21:00 Linagliptin (Tradjenta) 5 mg DAILY PO Last administered on 02/26/17 08:20; Admin Dose 5 MG; Start 02/25/17 at 09:00 Magnesium Hydroxide (Milk Of Mag) 30 ml DAILY PRN PO CONSTIPATION; Start at 02:00 Multivitamins/ Minerals (Theragran-M) 1 tab DAILY PO Last administered on 08:20; Admin Dose 1 TAB; Start 02/25/17 at 09:00 Pantoprazole (Protonix Tab) 40 mg DAILY@06 PO Last administered on 02/26/17 06 :24; Admin Dose 40 MG; Start 02/25/17 at 06:00 Polyethylene Glycol (Miralax) 8.5 gm DAILY PRN PO CONSTIPATION; Start 02/25/17 at 02:00 Salmeterol Xinafoate/ Fluticasone (Advair 250/50 Diskus) 1 inh BID INH Last administered on 02/26/17 08:21; Admin Dose 1 INH; Start 02/25/17 at 09:00 Sodium Biphosphate/ Sodium Phosphate (Fleet Enema) 133 ml Q48H PRN [place] CONSTIPATION; Start 02/25/17 at 07:30 Losartan Potassium (Cozaar) 50 mg BID PO Last administered on 02/26/17 08:21; Admin Dose 50 MG; Start 02/26/17 at 09:00 Carvedilol (Coreg) 3.125 mg BID PO Last administered on 02/26/17 08:21; Admin Dose 3.125 MG; Start 02/25/17 at 21:00 Diagnostic Test (Pha) (Accu-Chek) 1 ea 02 XX ; Start 02/26/17 at 02:00 Diagnostic Test (Pha) (Accu-Chek) 1 ea 02 XX ; Start 02/26/17 at 02:00 Miscellaneous Information 1 ea NOTE XX ; Start 02/25/17 at 15:30 Glucose (Glutose) 15 gm Q15M PRN PO DECREASED GLUCOSE; Start 02/25/17 at 15:30 Glucose (Glutose) 22.5 gm Q15M PRN PO DECREASED GLUCOSE; Start 02/25/17 at 15: 30 Dextrose (D50w Syringe) 25 ml Q15M PRN IV DECREASED GLUCOSE; Start 02/25/17 at 15:30 Dextrose (D50w Syringe) 50 ml Q15M PRN IV DECREASED GLUCOSE; Start 02/25/17 at 15:30 Glucagon (Glucagen) 1 mg Q15M PRN IM DECREASED GLUCOSE; Start 02/25/17 at 15:30 Glucose (Glutose) 15 gm Q15M PRN BUCCAL DECREASED GLUCOSE; Start 02/25/17 at 15 :30 DARRELL MARQUIS Feb 26, 2017 11:51
[2017-02-26] MEDS ORDERED: MAGNESIUM SULFATE 2 GM/50 ML 50 ML IVPB ONE (12:00)
--- NOTE | 2017-02-26 12:01 | RADRPT ---
PROCEDURE: XR Chest. CLINICAL INDICATION: Dyspnea. Pneumonia. TECHNIQUE: Single frontal chest x-ray. COMPARISON: 02/24/2017 FINDINGS: The lungs are clear of acute infiltrates, edema, effusions, or masses. There is mild left basilar at electasis. Calcific atherosclerosis of the aorta is present.. Cardiomegaly is again noted.. Degener ative disk changes of the spine are present. . IMPRESSION: No acute cardiopulmonary disease. Cardiomegaly with senescent changes of the chest. RPTAT: JJ .Jonathan Jimenez MD, MD Date Time Electronically viewed and signed by .Jonathan Jimenez MD, MD on 02/26/2017 12:00 .L/
--- NOTE | 2017-02-26 13:30 | CONS ---
Date/Time of Note Date/Time of Note DATE: 02/26/17 TIME: 13:28 Assessment/Plan Assessment/Plan Additional Assessment/Plan Sepsis Pneumonia Mildly elevated troponin History of CVA Left vertebral artery stenosis Hypertension Cerebral artery disease Diabetes Cardiomyopathy with ejection fraction 40% Paroxysmal atrial tachycardia -Patient feeling better with less shortness of breath. Would increase dose of beta-katherine, continue antiplatelet therapy and statin therapy. Will supplement magnesium to maintain above 2.0. Consultation Date/Type/Reason Admit Date/Time Feb 24, 2017 at 19:16 Initial Consult Date 02/26/17 Type of Consultation: cv 24 HR Interval Summary Free Text/Dictation Feeling better, less shortness of breath and cough. Able to eat today. Denies chest pain or dizziness or fevers and chills Exam/Review of Systems Vital Signs Vitals Vital Signs Date Time Temp Pulse Resp B/P Pulse Ox O2 Delivery O2 Flow Rate FiO2 02/26/17 13:17 76 02/26/17 11:46 98.3 19 139/86 98 02/26/17 11:33 3.0 02/26/17 11:33 Nasal Cannula Intake and Output 02/25/17 02/25/17 02/26/17 15:00 23:00 07:00 Intake Total 300 ml 900 ml 600 ml Output Total 450 ml 750 ml 400 ml Balance -150 ml 150 ml 200 ml Exam No apparent distress, eating lunch and watching television Constitutional: alert, oriented Head: normocephalic Respiratory: other (Coarse breath sounds bilaterally, no wheezing) Cardiovascular: other (S1-S2 heard), regular rate and rhythm Gastrointestinal: bowel sounds, non-tender, soft Extremities: edema (Trace) Results Result Diagram: 02/26/17 0617 02/26/17 0616 Results 24 hrs Laboratory Tests Test 02/25/17 16:47 02/25/17 21:08 02/26/17 06:16 02/26/17 06:17 Bedside Glucose 125 118 Sodium Level 139 Potassium Level 4.1 Chloride Level 102 Carbon Dioxide Level 26 Anion Gap 15 Blood Urea Nitrogen 16 Creatinine 0.91 Glucose Level 118 Calcium Level 8.5 White Blood Count 6.9 # Red Blood Count 3.25 L Hemoglobin 9.9 L Hematocrit 30.0 L Mean Corpuscular Volume 92.3 Mean Corpuscular Hemoglobin 30.5 Mean Corpuscular Hemoglobin Concent 33.0 Red Cell Distribution Width 13.0 Platelet Count 226 Mean Platelet Volume 11.2 H Neutrophils % 81.5 H Lymphocytes % 11.3 L Monocytes % 3.6 Eosinophils % 3.2 Basophils % 0.1 Nucleated Red Blood Cells % 0.0 Neutrophils # 5.6 Lymphocytes # 0.8 Monocytes # 0.3 Eosinophils # 0.2 Basophils # 0.0 Nucleated Red Blood Cells # 0.0 Test 02/26/17 06:30 02/26/17 08:05 02/26/17 11:58 Phosphorus Level 3.4 Magnesium Level 1.8 Bedside Glucose 116 127 Medications Medications Current Medications Ondansetron HCl (Zofran Inj) 4 mg Q4 PRN IV NAUSEA AND/OR VOMITING; Start 02/25 at 02:00 Acetaminophen (Tylenol Tab) 650 mg Q4H PRN PO MILD PAIN LEVEL 1-3 Last administered on 02/26/17 08:20; Admin Dose 650 MG; Start 02/25/17 at 02:00 Ascorbic Acid (Vitamin C) 500 mg DAILY PO Last administered on 02/26/17 08:20 ; Admin Dose 500 MG; Start 02/25/17 at 09:00 Aspirin (Halfprin) 81 mg DAILY PO Last administered on 02/26/17 08:20; Admin Dose 81 MG; Start 02/25/17 at 09:00 Atorvastatin Calcium (Lipitor) 80 mg QHS PO Last administered on 02/25/17 21: 01; Admin Dose 80 MG; Start 02/25/17 at 21:00 Bisacodyl (Dulcolax Supp) 10 mg DAILY PRN [place] CONSTIPATION; Start 02/25/17 at 02 :00 Brimonidine Tartrate (Alphagan P 0.1%) 1 drop BID BOTH EYES Last administered on 02/26/17 08:22; Admin Dose 1 DROP; Start 02/25/17 at 09:00 Cholecalciferol (Vitamin D) 1,000 unit BID PO Last administered on 02/26/17 08 :20; Admin Dose 1,000 UNIT; Start 02/25/17 at 09:00 Clopidogrel Bisulfate (plaVIX) 75 mg DAILY PO Last administered on 02/26/17 08 :20; Admin Dose 75 MG; Start 02/25/17 at 09:00 Docusate Sodium (Colace) 200 mg QHS PO Last administered on 02/25/17 21:00; Admin Dose 200 MG; Start 02/25/17 at 21:00 Linagliptin (Tradjenta) 5 mg DAILY PO Last administered on 02/26/17 08:20; Admin Dose 5 MG; Start 02/25/17 at 09:00 Magnesium Hydroxide (Milk Of Mag) 30 ml DAILY PRN PO CONSTIPATION; Start at 02:00 Multivitamins/ Minerals (Theragran-M) 1 tab DAILY PO Last administered on 08:20; Admin Dose 1 TAB; Start 02/25/17 at 09:00 Pantoprazole (Protonix Tab) 40 mg DAILY@06 PO Last administered on 02/26/17 06 :24; Admin Dose 40 MG; Start 02/25/17 at 06:00 Polyethylene Glycol (Miralax) 8.5 gm DAILY PRN PO CONSTIPATION; Start 02/25/17 at 02:00 Salmeterol Xinafoate/ Fluticasone (Advair 250/50 Diskus) 1 inh BID INH Last administered on 02/26/17 08:21; Admin Dose 1 INH; Start 02/25/17 at 09:00 Sodium Biphosphate/ Sodium Phosphate (Fleet Enema) 133 ml Q48H PRN [place] CONSTIPATION; Start 02/25/17 at 07:30 Losartan Potassium (Cozaar) 50 mg BID PO Last administered on 02/26/17 08:21; Admin Dose 50 MG; Start 02/26/17 at 09:00 Carvedilol (Coreg) 3.125 mg BID PO Last administered on 02/26/17 08:21; Admin Dose 3.125 MG; Start 02/25/17 at 21:00 Diagnostic Test (Pha) (Accu-Chek) 1 ea 02 XX ; Start 02/26/17 at 02:00 Diagnostic Test (Pha) (Accu-Chek) 1 ea 02 XX ; Start 02/26/17 at 02:00 Miscellaneous Information 1 ea NOTE XX ; Start 02/25/17 at 15:30 Glucose (Glutose) 15 gm Q15M PRN PO DECREASED GLUCOSE; Start 02/25/17 at 15:30 Glucose (Glutose) 22.5 gm Q15M PRN PO DECREASED GLUCOSE; Start 02/25/17 at 15: 30 Dextrose (D50w Syringe) 25 ml Q15M PRN IV DECREASED GLUCOSE; Start 02/25/17 at 15:30 Dextrose (D50w Syringe) 50 ml Q15M PRN IV DECREASED GLUCOSE; Start 02/25/17 at 15:30 Glucagon (Glucagen) 1 mg Q15M PRN IM DECREASED GLUCOSE; Start 02/25/17 at 15:30 Glucose (Glutose) 15 gm Q15M PRN BUCCAL DECREASED GLUCOSE; Start 02/25/17 at 15 :30 Levofloxacin (Levaquin) 500 mg DAILY@06 PO ; Start 02/27/17 at 06:00 Gabapentin 100 mg 100 mg BID PO ; Start 02/26/17 at 21:00 Magnesium Sulfate (Magnesium Sulfate 2 Gm/50 ml) 50 ml @ 25 mls/hr ONCE ONCE IVPB ; Start 02/26/17 at 12:00; Stop 02/26/17 at 13:59 Omega Chinchilla DO Feb 26, 2017 13:30
[2017-02-26] MEDS: ATORVASTATIN 80 MG TAB PO SCH (20:30)
[2017-02-26] MEDS: GABAPENTIN 100 MG CAP PO SCH (20:31)
[2017-02-26] MEDS: DOCUSATE SODIUM 100 MG CAP PO SCH (20:31)
[2017-02-27] VITALS (11 sets, daily range): BP systolic 139–173; BP diastolic 70–76; PULSE 57–86; RESP 17–18
[2017-02-27] MEDS: ACCU-CHEK XX SCH ×2 (02:00)
[2017-02-27] MEDS: PANTOPRAZOLE (EC) 40 MG TAB PO SCH (05:45)
[2017-02-27] MEDS ORDERED: LEVOFLOXACIN 500 MG TAB PO SCH (06:00)
[2017-02-27 07:15] LABS: BASOPHILS % 0.5 % (0.0-2.0); EOSINOPHILS # 0.2 10^3/ul (0.0-0.5); EOSINOPHILS % 4.5 % (0.0-7.0); HEMATOCRIT 32.3 % (37.0-47.0); HEMOGLOBIN 10.7 g/dl (12.0-16.0); LYMPHOCYTES # 0.7 10^3/ul (0.8-2.9); LYMPHOCYTES % 16.8 % (15.0-51.0); MEAN CORPUSCULAR HEMOGLOBIN 30.4 pg (29.0-33.0); MEAN CORPUSCULAR HGB CONC 33.1 g/dl (32.0-37.0); MEAN CORPUSCULAR VOLUME 91.8 fl (82.0-101.0); MEAN PLATELET VOLUME 11.1 fl (7.4-10.4); MONOCYTE # 0.2 10^3/ul (0.3-0.9); NEUTROPHIL # 3.1 10^3/ul (1.6-7.5); PLATELET COUNT 295 10^3/UL (140-415); RED BLOOD COUNT 3.52 10^6/ul (4.20-5.40); RED CELL DISTRIBUTION WIDTH 12.9 % (11.5-14.5); WHITE BLOOD COUNT 4.2 10^3/ul (4.8-10.8)
[2017-02-27 07:35] LABS: CALCIUM 8.8 mg/dl (8.4-10.2); CREATININE 0.85 mg/dl (0.44-1.00)
[2017-02-27] MEDS: INSULIN ASPART [NOVOLOG] 3 ML PEN SC SCH ×4 (08:00→21:00)
[2017-02-27] MEDS: ASCORBIC ACID 500 MG TAB PO SCH (08:24)
[2017-02-27] MEDS: ASPIRIN (EC) 81 MG TAB PO SCH (08:24)
[2017-02-27] MEDS: LINAGLIPTIN 5 MG TABLET PO SCH (08:24)
[2017-02-27] MEDS: CLOPIDOGREL 75 MG TAB PO SCH (08:24)
[2017-02-27] MEDS: GABAPENTIN 100 MG CAP PO SCH ×2 (08:24→21:44)
[2017-02-27] MEDS: CHOLECALCIFEROL 1,000 UNIT TAB PO SCH ×2 (08:24→21:44)
[2017-02-27] MEDS: MULTIVITAMINS/MINERALS TAB PO SCH (08:24)
[2017-02-27] MEDS: LOSARTAN 50 MG TAB PO SCH ×2 (08:25→21:53)
[2017-02-27] MEDS: SALMETEROL/FLUTICASONE 250/50 INHA INH SCH ×2 (08:26→21:43)
[2017-02-27] MEDS: BRIMONIDINE 0.1% 5 ML OPH BOTH EYES SCH ×2 (08:26→21:43)
--- NOTE | 2017-02-27 11:23 | CONS ---
Date/Time of Note Date/Time of Note DATE: 02/27/17 TIME: 11:21 Assessment/Plan Assessment/Plan Additional Assessment/Plan Chest x-ray was reviewed from yesterday afternoon which is essentially clear. Assessment recommendations; 1. Patient admitted with left lower lobe pneumonia with significant clinical and radiological improvement. 2. History of CVA. 3. History of COPD, hypertension or diabetes. Continue current treatment. Consider discharge. Consultation Date/Type/Reason Admit Date/Time Feb 24, 2017 at 19:16 Initial Consult Date 02/26/17 Type of Consultation: Pulmonary 24 HR Interval Summary Free Text/Dictation Patient condition stable. Denies any shortness breath, chest pain, coughing, sputum production or wheezing. General exam; elderly woman, awake alert currently in no distress. Exam/Review of Systems Vital Signs Vitals Vital Signs Date Time Temp Pulse Resp B/P Pulse Ox O2 Delivery O2 Flow Rate FiO2 02/27/17 08:08 76 02/27/17 07:50 98.5 18 173/76 99 02/26/17 19:30 Nasal Cannula 2.0 Intake and Output 02/26/17 02/26/17 02/27/17 15:00 23:00 07:00 Intake Total 100 ml 550 ml 400 ml Balance 100 ml 550 ml 400 ml Exam HEENT exam; supple neck, no JVD. No lymphadenopathy. Midline trachea. No thyromegaly. Pharynx is clear. Chest exam; diminished but clear breath sounds bilaterally. No added sound. S1 -S2 audible, no murmurs. Regular rhythm. Abdomen exam; soft, nontender. No organomegaly. Bowel sounds audible. Nondistended. Extremity exam; no peripheral edema. Next [employer] exam; cranial nerves are intact, patient has left upper extremity paralysis with left lower extremity paresis. Results Result Diagram: 02/27/17 0630 02/27/17 0629 Results 24 hrs Laboratory Tests Test 02/26/17 11:58 02/26/17 17:06 02/26/17 20:37 02/27/17 06:29 Bedside Glucose 127 116 128 Sodium Level 138 Potassium Level 4.0 Chloride Level 99 Carbon Dioxide Level 26 Anion Gap 17 H Blood Urea Nitrogen 14 Creatinine 0.85 Glucose Level 114 Calcium Level 8.8 Magnesium Level 2.1 Test 02/27/17 06:30 02/27/17 08:06 White Blood Count 4.2 #L Red Blood Count 3.52 L Hemoglobin 10.7 L Hematocrit 32.3 L Mean Corpuscular Volume 91.8 Mean Corpuscular Hemoglobin 30.4 Mean Corpuscular Hemoglobin Concent 33.1 Red Cell Distribution Width 12.9 Platelet Count 295 # Mean Platelet Volume 11.1 H Neutrophils % 73.0 Lymphocytes % 16.8 Monocytes % 5.0 Eosinophils % 4.5 Basophils % 0.5 Nucleated Red Blood Cells % 0.0 Neutrophils # 3.1 Lymphocytes # 0.7 L Monocytes # 0.2 L Eosinophils # 0.2 Basophils # 0.0 Nucleated Red Blood Cells # 0.0 Bedside Glucose 119 Medications Medications Current Medications Ondansetron HCl (Zofran Inj) 4 mg Q4 PRN IV NAUSEA AND/OR VOMITING; Start 02/25 at 02:00 Acetaminophen (Tylenol Tab) 650 mg Q4H PRN PO MILD PAIN LEVEL 1-3 Last administered on 02/26/17 08:20; Admin Dose 650 MG; Start 02/25/17 at 02:00 Ascorbic Acid (Vitamin C) 500 mg DAILY PO Last administered on 02/27/17 08:24 ; Admin Dose 500 MG; Start 02/25/17 at 09:00 Aspirin (Halfprin) 81 mg DAILY PO Last administered on 02/27/17 08:24; Admin Dose 81 MG; Start 02/25/17 at 09:00 Atorvastatin Calcium (Lipitor) 80 mg QHS PO Last administered on 02/26/17 20: 30; Admin Dose 80 MG; Start 02/25/17 at 21:00 Bisacodyl (Dulcolax Supp) 10 mg DAILY PRN [place] CONSTIPATION; Start 02/25/17 at 02 :00 Brimonidine Tartrate (Alphagan P 0.1%) 1 drop BID BOTH EYES Last administered on 02/27/17 08:26; Admin Dose 1 DROP; Start 02/25/17 at 09:00 Cholecalciferol (Vitamin D) 1,000 unit BID PO Last administered on 02/27/17 08 :24; Admin Dose 1,000 UNIT; Start 02/25/17 at 09:00 Clopidogrel Bisulfate (plaVIX) 75 mg DAILY PO Last administered on 02/27/17 08 :24; Admin Dose 75 MG; Start 02/25/17 at 09:00 Docusate Sodium (Colace) 200 mg QHS PO Last administered on 02/26/17 20:31; Admin Dose 200 MG; Start 02/25/17 at 21:00 Linagliptin (Tradjenta) 5 mg DAILY PO Last administered on 02/27/17 08:24; Admin Dose 5 MG; Start 02/25/17 at 09:00 Magnesium Hydroxide (Milk Of Mag) 30 ml DAILY PRN PO CONSTIPATION; Start at 02:00 Multivitamins/ Minerals (Theragran-M) 1 tab DAILY PO Last administered on 08:24; Admin Dose 1 TAB; Start 02/25/17 at 09:00 Pantoprazole (Protonix Tab) 40 mg DAILY@06 PO Last administered on 02/27/17 05 :45; Admin Dose 40 MG; Start 02/25/17 at 06:00 Polyethylene Glycol (Miralax) 8.5 gm DAILY PRN PO CONSTIPATION; Start 02/25/17 at 02:00 Salmeterol Xinafoate/ Fluticasone (Advair 250/50 Diskus) 1 inh BID INH Last administered on 02/27/17 08:26; Admin Dose 1 INH; Start 02/25/17 at 09:00 Sodium Biphosphate/ Sodium Phosphate (Fleet Enema) 133 ml Q48H PRN [place] CONSTIPATION; Start 02/25/17 at 07:30 Losartan Potassium (Cozaar) 50 mg BID PO Last administered on 02/27/17 08:25; Admin Dose 50 MG; Start 02/26/17 at 09:00 Diagnostic Test (Pha) (Accu-Chek) 1 ea 02 XX ; Start 02/26/17 at 02:00 Diagnostic Test (Pha) (Accu-Chek) 1 ea 02 XX ; Start 02/26/17 at 02:00 Miscellaneous Information 1 ea NOTE XX ; Start 02/25/17 at 15:30 Glucose (Glutose) 15 gm Q15M PRN PO DECREASED GLUCOSE; Start 02/25/17 at 15:30 Glucose (Glutose) 22.5 gm Q15M PRN PO DECREASED GLUCOSE; Start 02/25/17 at 15: 30 Dextrose (D50w Syringe) 25 ml Q15M PRN IV DECREASED GLUCOSE; Start 02/25/17 at 15:30 Dextrose (D50w Syringe) 50 ml Q15M PRN IV DECREASED GLUCOSE; Start 02/25/17 at 15:30 Glucagon (Glucagen) 1 mg Q15M PRN IM DECREASED GLUCOSE; Start 02/25/17 at 15:30 Glucose (Glutose) 15 gm Q15M PRN BUCCAL DECREASED GLUCOSE; Start 02/25/17 at 15 :30 Levofloxacin (Levaquin) 500 mg DAILY@06 PO Last administered on 02/27/17 05:45 ; Admin Dose 500 MG; Start 02/27/17 at 06:00 Gabapentin (Neurontin) 100 mg BID PO Last administered on 02/27/17 08:24; Admin Dose 100 MG; Start 02/26/17 at 21:00 Carvedilol (Coreg) 6.25 mg BID PO Last administered on 02/27/17 08:25; Admin Dose 6.25 MG; Start 02/26/17 at 21:00 LORIE LEAL Feb 27, 2017 11:23
--- NOTE | 2017-02-27 17:50 | PN ---
Date/Time of Note Date/Time of Note DATE: 02/27/17 TIME: 17:46 Assessment/Plan VTE Prophylaxis VTE Prophylaxis Intervention: SCD's Lines/Catheters IV [facility] ([facility] [place] [facility] Urinary Cath still in place: No Assessment/Plan Assessment/Plan 76-year-old female with: 1. Pneumonia or bronchopneumonia, healthcare associated, Continue Levaquin and vancomycin for total of 10 to 14 days. Blood cultures no growth to date Continue nebulizer treatment as needed, incentive spirometer, cough suppressant as needed and pulmonary toilet. [facility] 2. Elevated troponins: Appreciate your evaluation from Dr. Chinchilla from cardiology, differential diagnosis including possibly demand ischemia, underlying infection, renal disease. Patient already had an echocardiogram approximately a month and a half ago known cardiomyopathy with ejection fraction of 40%. Continue dual antiplatelet therapy in setting of stroke. Continue medical management including beta blockers. Patient noted to have 13 beats of V. tach overnight, she has been refusing beta- blockers but did take it today. Further recommendation from cardiology. Of note patient still has a loop recorder in place no arrhythmias have been reported 3. Diabetes mellitus: Resume Tradjenta, sliding scale insulin and diabetic diet 4. Hypertension: Continue current medication 5. Hyperlipidemia: Continue statin therapy 6. 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 Physical therapy reordered 7. COPD per history: Continue nebulizer treatments and Advair, also treating underlying bronchopneumonia 8. Chronic anemia: Stable H/H 9. Chronic kidney disease: Stable renal function Prophylaxis: SCDs to lower extremities for DVT prophylaxis, Protonix for GI prophylaxis Disposition: Monitor on telemetry, IV vancomycin and p.o. Levaquin for approximately 10 more days, hopefully patient will remain stable in the next 24 hours for discharge back to SNF tomorrow. Subjective 24 Hr Interval Summary Free Text/Dictation Patient doing well today, she finally agreed to take a dose of Coreg this morning. She was noted to have 13 beats of V. tach overnight. She is now in sinus rhythm. Otherwise she has ongoing chronic left hemiparesis which is unchanged. She is clinically improving regarding her pneumonia as she has been on room air most of the time. Exam/Review of Systems Vital Signs Vitals Vital Signs Date Time Temp Pulse Resp B/P Pulse Ox O2 Delivery O2 Flow Rate FiO2 7/27/17 17:15 2.0 02/27/17 16:55 98.0 81 18 159/76 94 02/27/17 12:00 Room Air Intake and Output 02/26/17 02/26/17 02/27/17 15:00 23:00 07:00 Intake Total 100 ml 550 ml 400 ml Balance 100 ml 550 ml 400 ml Exam Constitutional: alert, oriented, other (Left hemiparesis), well developed Respiratory: clear to auscultation, normal air movement, other (On room air most of the time) Cardiovascular: nl pulses, regular rate and rhythm Gastrointestinal: non-tender, soft Musculoskeletal: other (Left hemiparesis) Extremities: normal pulses, other (No edema, clubbing or cyanosis) Neurological: [employer] II-XII intact, focal weakness (Left hemiparesis), nl mental status, nl speech Results Result Diagram: 02/27/17 0630 02/27/17 0629 Results 24 hrs Laboratory Tests Test 02/26/17 20:37 02/27/17 06:29 02/27/17 06:30 02/27/17 08:06 Bedside Glucose 128 119 Sodium Level 138 Potassium Level 4.0 Chloride Level 99 Carbon Dioxide Level 26 Anion Gap 17 H Blood Urea Nitrogen 14 Creatinine 0.85 Glucose Level 114 Calcium Level 8.8 Magnesium Level 2.1 White Blood Count 4.2 #L Red Blood Count 3.52 L Hemoglobin 10.7 L Hematocrit 32.3 L Mean Corpuscular Volume 91.8 Mean Corpuscular Hemoglobin 30.4 Mean Corpuscular Hemoglobin Concent 33.1 Red Cell Distribution Width 12.9 Platelet Count 295 # Mean Platelet Volume 11.1 H Neutrophils % 73.0 Lymphocytes % 16.8 Monocytes % 5.0 Eosinophils % 4.5 Basophils % 0.5 Nucleated Red Blood Cells % 0.0 Neutrophils # 3.1 Lymphocytes # 0.7 L Monocytes # 0.2 L Eosinophils # 0.2 Basophils # 0.0 Nucleated Red Blood Cells # 0.0 Test 02/27/17 12:02 02/27/17 17:06 Bedside Glucose 131 116 Medications Medications Current Medications Ondansetron HCl (Zofran Inj) 4 mg Q4 PRN IV NAUSEA AND/OR VOMITING; Start 02/25 at 02:00 Acetaminophen (Tylenol Tab) 650 mg Q4H PRN PO MILD PAIN LEVEL 1-3 Last administered on 02/26/17 08:20; Admin Dose 650 MG; Start 02/25/17 at 02:00 Ascorbic Acid (Vitamin C) 500 mg DAILY PO Last administered on 02/27/17 08:24 ; Admin Dose 500 MG; Start 02/25/17 at 09:00 Aspirin (Halfprin) 81 mg DAILY PO Last administered on 02/27/17 08:24; Admin Dose 81 MG; Start 02/25/17 at 09:00 Atorvastatin Calcium (Lipitor) 80 mg QHS PO Last administered on 02/26/17 20: 30; Admin Dose 80 MG; Start 02/25/17 at 21:00 Bisacodyl (Dulcolax Supp) 10 mg DAILY PRN [place] CONSTIPATION; Start 02/25/17 at 02 :00 Brimonidine Tartrate (Alphagan P 0.1%) 1 drop BID BOTH EYES Last administered on 02/27/17 08:26; Admin Dose 1 DROP; Start 02/25/17 at 09:00 Cholecalciferol (Vitamin D) 1,000 unit BID PO Last administered on 02/27/17 08 :24; Admin Dose 1,000 UNIT; Start 02/25/17 at 09:00 Clopidogrel Bisulfate (plaVIX) 75 mg DAILY PO Last administered on 02/27/17 08 :24; Admin Dose 75 MG; Start 02/25/17 at 09:00 Docusate Sodium (Colace) 200 mg QHS PO Last administered on 02/26/17 20:31; Admin Dose 200 MG; Start 02/25/17 at 21:00 Linagliptin (Tradjenta) 5 mg DAILY PO Last administered on 02/27/17 08:24; Admin Dose 5 MG; Start 02/25/17 at 09:00 Magnesium Hydroxide (Milk Of Mag) 30 ml DAILY PRN PO CONSTIPATION; Start at 02:00 Multivitamins/ Minerals (Theragran-M) 1 tab DAILY PO Last administered on 08:24; Admin Dose 1 TAB; Start 02/25/17 at 09:00 Pantoprazole (Protonix Tab) 40 mg DAILY@06 PO Last administered on 02/27/17 05 :45; Admin Dose 40 MG; Start 02/25/17 at 06:00 Polyethylene Glycol (Miralax) 8.5 gm DAILY PRN PO CONSTIPATION; Start 02/25/17 at 02:00 Salmeterol Xinafoate/ Fluticasone (Advair 250/50 Diskus) 1 inh BID INH Last administered on 02/27/17 08:26; Admin Dose 1 INH; Start 02/25/17 at 09:00 Sodium Biphosphate/ Sodium Phosphate (Fleet Enema) 133 ml Q48H PRN [place] CONSTIPATION; Start 02/25/17 at 07:30 Losartan Potassium (Cozaar) 50 mg BID PO Last administered on 02/27/17 08:25; Admin Dose 50 MG; Start 02/26/17 at 09:00 Diagnostic Test (Pha) (Accu-Chek) 1 ea 02 XX ; Start 02/26/17 at 02:00 Diagnostic Test (Pha) (Accu-Chek) 1 ea 02 XX ; Start 02/26/17 at 02:00 Miscellaneous Information 1 ea NOTE XX ; Start 02/25/17 at 15:30 Glucose (Glutose) 15 gm Q15M PRN PO DECREASED GLUCOSE; Start 02/25/17 at 15:30 Glucose (Glutose) 22.5 gm Q15M PRN PO DECREASED GLUCOSE; Start 02/25/17 at 15: 30 Dextrose (D50w Syringe) 25 ml Q15M PRN IV DECREASED GLUCOSE; Start 02/25/17 at 15:30 Dextrose (D50w Syringe) 50 ml Q15M PRN IV DECREASED GLUCOSE; Start 02/25/17 at 15:30 Glucagon (Glucagen) 1 mg Q15M PRN IM DECREASED GLUCOSE; Start 02/25/17 at 15:30 Glucose (Glutose) 15 gm Q15M PRN BUCCAL DECREASED GLUCOSE; Start 02/25/17 at 15 :30 Levofloxacin (Levaquin) 500 mg DAILY@06 PO Last administered on 02/27/17 05:45 ; Admin Dose 500 MG; Start 02/27/17 at 06:00 Gabapentin (Neurontin) 100 mg BID PO Last administered on 02/27/17 08:24; Admin Dose 100 MG; Start 02/26/17 at 21:00 Carvedilol (Coreg) 6.25 mg BID PO Last administered on 02/27/17 08:25; Admin Dose 6.25 MG; Start 02/26/17 at 21:00 DARRELL MARQUIS Feb 27, 2017 17:50
--- NOTE | 2017-02-27 18:35 | CONS ---
Date/Time of Note Date/Time of Note DATE: 02/27/17 TIME: 18:33 Assessment/Plan Assessment/Plan Additional Assessment/Plan Sepsis Pneumonia Mildly elevated troponin History of CVA Left vertebral artery stenosis Hypertension Cerebral artery disease Diabetes Cardiomyopathy with ejection fraction 40% Paroxysmal atrial tachycardia Nonsustained ventricular tachycardia -Patient feeling better with less shortness of breath. Telemetry reviewed with episode of nonsustained ventricular tachycardia, maintain potassium above 4.0 and magnesium above 2.0. Would increase dose of beta-katherine, continue antiplatelet therapy and statin therapy. Will DC Levaquin given proarrhythmic effects and consider other antibiotic Consultation Date/Type/Reason Admit Date/Time Feb 24, 2017 at 19:16 Initial Consult Date 02/26/17 Type of Consultation: cv 24 HR Interval Summary Free Text/Dictation Still with cough but improved, less shortness of breath, denies chest pain or palpitations Exam/Review of Systems Vital Signs Vitals Vital Signs Date Time Temp Pulse Resp B/P Pulse Ox O2 Delivery O2 Flow Rate FiO2 02/27/17 17:15 2.0 02/27/17 16:55 98.0 81 18 159/76 94 02/27/17 12:00 Room Air Intake and Output 02/26/17 02/26/17 02/27/17 15:00 23:00 07:00 Intake Total 100 ml 550 ml 400 ml Balance 100 ml 550 ml 400 ml Exam No apparent distress Constitutional: alert, oriented Head: normocephalic Respiratory: other (Coarse breath sounds bilaterally, no wheezing) Cardiovascular: other (S1-S2 heard), regular rate and rhythm Gastrointestinal: bowel sounds, non-tender, soft Extremities: edema (Trace) Results Result Diagram: 02/27/17 0630 02/27/17 0629 Results 24 hrs Laboratory Tests Test 02/26/17 20:37 02/27/17 06:29 02/27/17 06:30 02/27/17 08:06 Bedside Glucose 128 119 Sodium Level 138 Potassium Level 4.0 Chloride Level 99 Carbon Dioxide Level 26 Anion Gap 17 H Blood Urea Nitrogen 14 Creatinine 0.85 Glucose Level 114 Calcium Level 8.8 Magnesium Level 2.1 White Blood Count 4.2 #L Red Blood Count 3.52 L Hemoglobin 10.7 L Hematocrit 32.3 L Mean Corpuscular Volume 91.8 Mean Corpuscular Hemoglobin 30.4 Mean Corpuscular Hemoglobin Concent 33.1 Red Cell Distribution Width 12.9 Platelet Count 295 # Mean Platelet Volume 11.1 H Neutrophils % 73.0 Lymphocytes % 16.8 Monocytes % 5.0 Eosinophils % 4.5 Basophils % 0.5 Nucleated Red Blood Cells % 0.0 Neutrophils # 3.1 Lymphocytes # 0.7 L Monocytes # 0.2 L Eosinophils # 0.2 Basophils # 0.0 Nucleated Red Blood Cells # 0.0 Test 02/27/17 12:02 02/27/17 17:06 Bedside Glucose 131 116 Medications Medications Current Medications Ondansetron HCl (Zofran Inj) 4 mg Q4 PRN IV NAUSEA AND/OR VOMITING; Start 02/25 at 02:00 Acetaminophen (Tylenol Tab) 650 mg Q4H PRN PO MILD PAIN LEVEL 1-3 Last administered on 02/26/17 08:20; Admin Dose 650 MG; Start 02/25/17 at 02:00 Ascorbic Acid (Vitamin C) 500 mg DAILY PO Last administered on 02/27/17 08:24 ; Admin Dose 500 MG; Start 02/25/17 at 09:00 Aspirin (Halfprin) 81 mg DAILY PO Last administered on 02/27/17 08:24; Admin Dose 81 MG; Start 02/25/17 at 09:00 Atorvastatin Calcium (Lipitor) 80 mg QHS PO Last administered on 02/26/17 20: 30; Admin Dose 80 MG; Start 02/25/17 at 21:00 Bisacodyl (Dulcolax Supp) 10 mg DAILY PRN [place] CONSTIPATION; Start 02/25/17 at 02 :00 Brimonidine Tartrate (Alphagan P 0.1%) 1 drop BID BOTH EYES Last administered on 02/27/17 08:26; Admin Dose 1 DROP; Start 02/25/17 at 09:00 Cholecalciferol (Vitamin D) 1,000 unit BID PO Last administered on 02/27/17 08 :24; Admin Dose 1,000 UNIT; Start 02/25/17 at 09:00 Clopidogrel Bisulfate (plaVIX) 75 mg DAILY PO Last administered on 02/27/17 08 :24; Admin Dose 75 MG; Start 02/25/17 at 09:00 Docusate Sodium (Colace) 200 mg QHS PO Last administered on 02/26/17 20:31; Admin Dose 200 MG; Start 02/25/17 at 21:00 Linagliptin (Tradjenta) 5 mg DAILY PO Last administered on 02/27/17 08:24; Admin Dose 5 MG; Start 02/25/17 at 09:00 Magnesium Hydroxide (Milk Of Mag) 30 ml DAILY PRN PO CONSTIPATION; Start at 02:00 Multivitamins/ Minerals (Theragran-M) 1 tab DAILY PO Last administered on 08:24; Admin Dose 1 TAB; Start 02/25/17 at 09:00 Pantoprazole (Protonix Tab) 40 mg DAILY@06 PO Last administered on 02/27/17 05 :45; Admin Dose 40 MG; Start 02/25/17 at 06:00 Polyethylene Glycol (Miralax) 8.5 gm DAILY PRN PO CONSTIPATION; Start 02/25/17 at 02:00 Salmeterol Xinafoate/ Fluticasone (Advair 250/50 Diskus) 1 inh BID INH Last administered on 02/27/17 08:26; Admin Dose 1 INH; Start 02/25/17 at 09:00 Sodium Biphosphate/ Sodium Phosphate (Fleet Enema) 133 ml Q48H PRN [place] CONSTIPATION; Start 02/25/17 at 07:30 Losartan Potassium (Cozaar) 50 mg BID PO Last administered on 02/27/17 08:25; Admin Dose 50 MG; Start 02/26/17 at 09:00 Diagnostic Test (Pha) (Accu-Chek) 1 ea 02 XX ; Start 02/26/17 at 02:00 Diagnostic Test (Pha) (Accu-Chek) 1 ea 02 XX ; Start 02/26/17 at 02:00 Miscellaneous Information 1 ea NOTE XX ; Start 02/25/17 at 15:30 Glucose (Glutose) 15 gm Q15M PRN PO DECREASED GLUCOSE; Start 02/25/17 at 15:30 Glucose (Glutose) 22.5 gm Q15M PRN PO DECREASED GLUCOSE; Start 02/25/17 at 15: 30 Dextrose (D50w Syringe) 25 ml Q15M PRN IV DECREASED GLUCOSE; Start 02/25/17 at 15:30 Dextrose (D50w Syringe) 50 ml Q15M PRN IV DECREASED GLUCOSE; Start 02/25/17 at 15:30 Glucagon (Glucagen) 1 mg Q15M PRN IM DECREASED GLUCOSE; Start 02/25/17 at 15:30 Glucose (Glutose) 15 gm Q15M PRN BUCCAL DECREASED GLUCOSE; Start 02/25/17 at 15 :30 Levofloxacin (Levaquin) 500 mg DAILY@06 PO Last administered on 02/27/17 05:45 ; Admin Dose 500 MG; Start 02/27/17 at 06:00 Gabapentin (Neurontin) 100 mg BID PO Last administered on 02/27/17 08:24; Admin Dose 100 MG; Start 02/26/17 at 21:00 Carvedilol (Coreg) 6.25 mg BID PO Last administered on 02/27/17 08:25; Admin Dose 6.25 MG; Start 02/26/17 at 21:00 Omega Chinchilla DO Feb 27, 2017 18:35
[2017-02-27] MEDS ORDERED: LIDOCAINE 1% (MPF) 5 ML VIAL SC ONE (19:30)
[2017-02-27] MEDS: ERTAPENEM SODIUM 1 GM in SOD CHLORIDE 0.9% 100 ML IVPB SCH ×2 (20:00→21:39)
[2017-02-27] MEDS: DOCUSATE SODIUM 100 MG CAP PO SCH (21:43)
[2017-02-27] MEDS: ATORVASTATIN 80 MG TAB PO SCH (21:44)
[2017-02-28] VITALS (16 sets, daily range): BP systolic 122–183; BP diastolic 59–85; PULSE 58–92; RESP 17–18
[2017-02-28] MEDS: ACCU-CHEK XX SCH (02:00)
[2017-02-28] MEDS: PANTOPRAZOLE (EC) 40 MG TAB PO SCH (05:00)
[2017-02-28] MEDS: INSULIN ASPART [NOVOLOG] 3 ML PEN SC SCH ×4 (08:00→20:25)
[2017-02-28 09:08] LABS: CALCIUM 8.6 mg/dl (8.4-10.2); CREATININE 0.97 mg/dl (0.44-1.00); POTASSIUM 4.3 mmol/L (3.5-5.1)
[2017-02-28] MEDS: GABAPENTIN 100 MG CAP PO SCH ×2 (09:28→20:06)
[2017-02-28] MEDS: ASPIRIN (EC) 81 MG TAB PO SCH (09:28)
[2017-02-28] MEDS: LINAGLIPTIN 5 MG TABLET PO SCH (09:28)
[2017-02-28] MEDS: ASCORBIC ACID 500 MG TAB PO SCH (09:28)
[2017-02-28] MEDS: SALMETEROL/FLUTICASONE 250/50 INHA INH SCH ×2 (09:28→20:06)
[2017-02-28] MEDS: CHOLECALCIFEROL 1,000 UNIT TAB PO SCH ×2 (09:28→20:06)
[2017-02-28] MEDS: BRIMONIDINE 0.1% 5 ML OPH BOTH EYES SCH ×2 (09:28→20:06)
[2017-02-28] MEDS: MULTIVITAMINS/MINERALS TAB PO SCH (09:28)
[2017-02-28] MEDS: CLOPIDOGREL 75 MG TAB PO SCH (09:28)
[2017-02-28] MEDS: LOSARTAN 50 MG TAB PO SCH ×2 (09:29→17:44)
--- NOTE | 2017-02-28 09:30 | CONS ---
Date/Time of Note Date/Time of Note DATE: 02/28/17 TIME: 09:29 Assessment/Plan Assessment/Plan Additional Assessment/Plan Assessment and recommendations; 1. Patient admitted for left lower lobe pneumonia with significant clinical and radiological improvement. 2. Other comorbidities including diabetes and hypertension. Continue current treatment. Consider discharge. Consultation Date/Type/Reason Admit Date/Time Feb 24, 2017 at 19:16 Initial Consult Date 02/26/17 Type of Consultation: Pulmonary 24 HR Interval Summary Free Text/Dictation Patient condition stable. Remains awake alert. Denies any shortness breath, chest pain. General exam; elderly woman, awake alert currently in no distress. Exam/Review of Systems Vital Signs Vitals Vital Signs Date Time Temp Pulse Resp B/P Pulse Ox O2 Delivery O2 Flow Rate FiO2 02/28/17 08:00 58 02/28/17 07:54 97.4 18 144/67 98 02/27/17 17:15 2.0 02/27/17 12:00 Room Air Intake and Output 02/27/17 02/27/17 02/28/17 15:00 23:00 07:00 Intake Total 700 ml 480 ml Balance 700 ml 480 ml Exam HEENT exam; supple neck, no JVD. No lymphadenopathy. Midline trachea. No thyromegaly. Patient has fair dentition. Chest exam; clear to auscultation. S1-S2 audible, no murmurs. Regular rhythm. Abdomen exam; soft, nontender. No organomegaly. Bowel sounds audible. Extremity exam; no peripheral edema. Next ADVERTISING STATISTICAL CLERK exam; no focal deficit. Results Result Diagram: 02/27/17 0630 02/28/17 0612 Results 24 hrs Laboratory Tests Test 02/27/17 12:02 02/27/17 17:06 02/27/17 21:42 02/28/17 06:12 Bedside Glucose 131 116 149 Sodium Level 141 Potassium Level 4.3 Chloride Level 102 Carbon Dioxide Level 27 Anion Gap 16 Blood Urea Nitrogen 17 Creatinine 0.97 Glucose Level 119 Calcium Level 8.6 Magnesium Level 1.8 Test 02/28/17 08:17 Bedside Glucose 131 Medications Medications Current Medications Ondansetron HCl (Zofran Inj) 4 mg Q4 PRN IV NAUSEA AND/OR VOMITING; Start 02/25 at 02:00 Acetaminophen (Tylenol Tab) 650 mg Q4H PRN PO MILD PAIN LEVEL 1-3 Last administered on 02/26/17 08:20; Admin Dose 650 MG; Start 02/25/17 at 02:00 Ascorbic Acid (Vitamin C) 500 mg DAILY PO Last administered on 02/27/17 08:24 ; Admin Dose 500 MG; Start 02/25/17 at 09:00 Aspirin (Halfprin) 81 mg DAILY PO Last administered on 02/27/17 08:24; Admin Dose 81 MG; Start 02/25/17 at 09:00 Atorvastatin Calcium (Lipitor) 80 mg QHS PO Last administered on 02/27/17 21: 44; Admin Dose 80 MG; Start 02/25/17 at 21:00 Bisacodyl (Dulcolax Supp) 10 mg DAILY PRN [place] CONSTIPATION; Start 02/25/17 at 02 :00 Brimonidine Tartrate (Alphagan P 0.1%) 1 drop BID BOTH EYES Last administered on 02/27/17 21:43; Admin Dose 1 DROP; Start 02/25/17 at 09:00 Cholecalciferol (Vitamin D) 1,000 unit BID PO Last administered on 02/27/17 21 :44; Admin Dose 1,000 UNIT; Start 02/25/17 at 09:00 Clopidogrel Bisulfate (plaVIX) 75 mg DAILY PO Last administered on 02/27/17 08 :24; Admin Dose 75 MG; Start 02/25/17 at 09:00 Docusate Sodium (Colace) 200 mg QHS PO Last administered on 02/27/17 21:43; Admin Dose 200 MG; Start 02/25/17 at 21:00 Linagliptin (Tradjenta) 5 mg DAILY PO Last administered on 02/27/17 08:24; Admin Dose 5 MG; Start 02/25/17 at 09:00 Magnesium Hydroxide (Milk Of Mag) 30 ml DAILY PRN PO CONSTIPATION; Start at 02:00 Multivitamins/ Minerals (Theragran-M) 1 tab DAILY PO Last administered on 08:24; Admin Dose 1 TAB; Start 02/25/17 at 09:00 Pantoprazole (Protonix Tab) 40 mg DAILY@06 PO Last administered on 02/28/17 05 :00; Admin Dose 40 MG; Start 02/25/17 at 06:00 Polyethylene Glycol (Miralax) 8.5 gm DAILY PRN PO CONSTIPATION; Start 02/25/17 at 02:00 Salmeterol Xinafoate/ Fluticasone (Advair 250/50 Diskus) 1 inh BID INH Last administered on 02/27/17 21:43; Admin Dose 1 INH; Start 02/25/17 at 09:00 Sodium Biphosphate/ Sodium Phosphate (Fleet Enema) 133 ml Q48H PRN [place] CONSTIPATION; Start 02/25/17 at 07:30 Losartan Potassium (Cozaar) 50 mg BID PO Last administered on 02/27/17 21:53; Admin Dose 50 MG; Start 02/26/17 at 09:00 Diagnostic Test (Pha) (Accu-Chek) 1 ea 02 XX ; Start 02/26/17 at 02:00 Miscellaneous Information 1 ea NOTE XX ; Start 02/25/17 at 15:30 Glucose (Glutose) 15 gm Q15M PRN PO DECREASED GLUCOSE; Start 02/25/17 at 15:30 Glucose (Glutose) 22.5 gm Q15M PRN PO DECREASED GLUCOSE; Start 02/25/17 at 15: 30 Dextrose (D50w Syringe) 25 ml Q15M PRN IV DECREASED GLUCOSE; Start 02/25/17 at 15:30 Dextrose (D50w Syringe) 50 ml Q15M PRN IV DECREASED GLUCOSE; Start 02/25/17 at 15:30 Glucagon (Glucagen) 1 mg Q15M PRN IM DECREASED GLUCOSE; Start 02/25/17 at 15:30 Glucose (Glutose) 15 gm Q15M PRN BUCCAL DECREASED GLUCOSE; Start 02/25/17 at 15 :30 Gabapentin (Neurontin) 100 mg BID PO Last administered on 02/27/17 21:44; Admin Dose 100 MG; Start 02/26/17 at 21:00 Carvedilol 12.5 mg 12.5 mg BID PO ; Start 02/27/17 at 21:00 Ertapenem/Sodium Chloride (Invanz/NS) 100 ml @ 200 mls/hr Q24H IVPB Last administered on 02/27/17 21:39; Admin Dose 200 MLS/HR; Start 02/27/17 at 20:00 LORIE LEAL Feb 28, 2017 09:30
--- NOTE | 2017-02-28 09:52 | CONS ---
Date/Time of Note Date/Time of Note DATE: 02/28/17 TIME: 09:51 Assessment/Plan Assessment/Plan Additional Assessment/Plan Sepsis Pneumonia Mildly elevated troponin History of CVA Left vertebral artery stenosis Hypertension Cerebral artery disease Diabetes Cardiomyopathy with ejection fraction 40% Paroxysmal atrial tachycardia Nonsustained ventricular tachycardia -Patient feeling better with less shortness of breath. Telemetry reviewed with no further episodes seen of nonsustained ventricular tachycardia, maintain potassium above 4.0 and magnesium above 2.0. Will supplement magnesium. Continue beta-katherine as heart rate and blood pressure permits. Consultation Date/Type/Reason Admit Date/Time Feb 24, 2017 at 19:16 Initial Consult Date 02/26/17 Type of Consultation: cv 24 HR Interval Summary Free Text/Dictation Less shortness of breath and cough, denies chest pain Exam/Review of Systems Vital Signs Vitals Vital Signs Date Time Temp Pulse Resp B/P Pulse Ox O2 Delivery O2 Flow Rate FiO2 02/28/17 08:00 58 02/28/17 07:54 97.4 18 144/67 98 02/27/17 17:15 2.0 02/27/17 12:00 Room Air Intake and Output 02/27/17 02/27/17 02/28/17 15:00 23:00 07:00 Intake Total 700 ml 480 ml Balance 700 ml 480 ml Exam Eating breakfast, no apparent distress Constitutional: alert, oriented Head: normocephalic Respiratory: other (Coarse breath sounds bilaterally, no wheezing) Cardiovascular: other (S1-S2 heard), regular rate and rhythm Gastrointestinal: bowel sounds, non-tender, soft Extremities: edema (Trace) Results Result Diagram: 02/27/17 0630 02/28/17 0612 Results 24 hrs Laboratory Tests Test 02/27/17 12:02 02/27/17 17:06 02/27/17 21:42 02/28/17 06:12 Bedside Glucose 131 116 149 Sodium Level 141 Potassium Level 4.3 Chloride Level 102 Carbon Dioxide Level 27 Anion Gap 16 Blood Urea Nitrogen 17 Creatinine 0.97 Glucose Level 119 Calcium Level 8.6 Magnesium Level 1.8 Test 02/28/17 08:17 Bedside Glucose 131 Medications Medications Current Medications Ondansetron HCl (Zofran Inj) 4 mg Q4 PRN IV NAUSEA AND/OR VOMITING; Start 02/25 at 02:00 Acetaminophen (Tylenol Tab) 650 mg Q4H PRN PO MILD PAIN LEVEL 1-3 Last administered on 02/26/17 08:20; Admin Dose 650 MG; Start 02/25/17 at 02:00 Ascorbic Acid (Vitamin C) 500 mg DAILY PO Last administered on 02/28/17 09:28 ; Admin Dose 500 MG; Start 02/25/17 at 09:00 Aspirin (Halfprin) 81 mg DAILY PO Last administered on 02/28/17 09:28; Admin Dose 81 MG; Start 02/25/17 at 09:00 Atorvastatin Calcium (Lipitor) 80 mg QHS PO Last administered on 02/27/17 21: 44; Admin Dose 80 MG; Start 02/25/17 at 21:00 Bisacodyl (Dulcolax Supp) 10 mg DAILY PRN [place] CONSTIPATION; Start 02/25/17 at 02 :00 Brimonidine Tartrate (Alphagan P 0.1%) 1 drop BID BOTH EYES Last administered on 02/28/17 09:28; Admin Dose 1 DROP; Start 02/25/17 at 09:00 Cholecalciferol (Vitamin D) 1,000 unit BID PO Last administered on 02/28/17 09 :28; Admin Dose 1,000 UNIT; Start 02/25/17 at 09:00 Clopidogrel Bisulfate (plaVIX) 75 mg DAILY PO Last administered on 02/28/17 09 :28; Admin Dose 75 MG; Start 02/25/17 at 09:00 Docusate Sodium (Colace) 200 mg QHS PO Last administered on 02/27/17 21:43; Admin Dose 200 MG; Start 02/25/17 at 21:00 Linagliptin (Tradjenta) 5 mg DAILY PO Last administered on 02/28/17 09:28; Admin Dose 5 MG; Start 02/25/17 at 09:00 Magnesium Hydroxide (Milk Of Mag) 30 ml DAILY PRN PO CONSTIPATION; Start at 02:00 Multivitamins/ Minerals (Theragran-M) 1 tab DAILY PO Last administered on 09:28; Admin Dose 1 TAB; Start 02/25/17 at 09:00 Pantoprazole (Protonix Tab) 40 mg DAILY@06 PO Last administered on 02/28/17 05 :00; Admin Dose 40 MG; Start 02/25/17 at 06:00 Polyethylene Glycol (Miralax) 8.5 gm DAILY PRN PO CONSTIPATION; Start 02/25/17 at 02:00 Salmeterol Xinafoate/ Fluticasone (Advair 250/50 Diskus) 1 inh BID INH Last administered on 02/28/17 09:28; Admin Dose 1 INH; Start 02/25/17 at 09:00 Sodium Biphosphate/ Sodium Phosphate (Fleet Enema) 133 ml Q48H PRN [place] CONSTIPATION; Start 02/25/17 at 07:30 Losartan Potassium (Cozaar) 50 mg BID PO Last administered on 02/28/17 09:29; Admin Dose 50 MG; Start 02/26/17 at 09:00 Diagnostic Test (Pha) (Accu-Chek) 1 ea 02 XX ; Start 02/26/17 at 02:00 Miscellaneous Information 1 ea NOTE XX ; Start 02/25/17 at 15:30 Glucose (Glutose) 15 gm Q15M PRN PO DECREASED GLUCOSE; Start 02/25/17 at 15:30 Glucose (Glutose) 22.5 gm Q15M PRN PO DECREASED GLUCOSE; Start 02/25/17 at 15: 30 Dextrose (D50w Syringe) 25 ml Q15M PRN IV DECREASED GLUCOSE; Start 02/25/17 at 15:30 Dextrose (D50w Syringe) 50 ml Q15M PRN IV DECREASED GLUCOSE; Start 02/25/17 at 15:30 Glucagon (Glucagen) 1 mg Q15M PRN IM DECREASED GLUCOSE; Start 02/25/17 at 15:30 Glucose (Glutose) 15 gm Q15M PRN BUCCAL DECREASED GLUCOSE; Start 02/25/17 at 15 :30 Gabapentin (Neurontin) 100 mg BID PO Last administered on 02/28/17 09:28; Admin Dose 100 MG; Start 02/26/17 at 21:00 Carvedilol 12.5 mg 12.5 mg BID PO Last administered on 02/28/17 09:30; Admin Dose 12.5 MG; Start 02/27/17 at 21:00 Ertapenem/Sodium Chloride (Invanz/NS) 100 ml @ 200 mls/hr Q24H IVPB Last administered on 02/27/17 21:39; Admin Dose 200 MLS/HR; Start 02/27/17 at 20:00 Omega Chinchilla DO Feb 28, 2017 09:52
[2017-02-28] MEDS ORDERED: MAGNESIUM SULFATE 2 GM/50 ML 50 ML IVPB ONE (10:00)
--- NOTE | 2017-02-28 13:32 | PN ---
Date/Time of Note Date/Time of Note DATE: 02/28/17 TIME: 13:21 Assessment/Plan VTE Prophylaxis VTE Prophylaxis Intervention: SCD's Lines/Catheters IV [facility]from [facility] Urinary Cath still in place: No Assessment/Plan Assessment/Plan 76-year-old female with: 1. Pneumonia or bronchopneumonia, healthcare associated, Continue Ertapenem and vancomycin for 10 more days. Discharged today pending PICC line placement. Blood cultures no growth to date Continue nebulizer treatment as needed, incentive spirometer, cough suppressant as needed and pulmonary toilet. [facility] plan to jail facility today after PICC line placed. 2. Elevated troponins: Appreciate your evaluation from Dr. Chinchilla from cardiology, differential diagnosis including possibly demand ischemia, underlying infection, renal disease. Patient already had an echocardiogram approximately a month and a half ago known cardiomyopathy with ejection fraction of 40%. Continue dual antiplatelet therapy in setting of stroke. Continue medical management including beta blockers. Patient noted to have 13 beats of V. tach yesterday. Patient back on her beta blockers and compliant with it per Dr. Chinchilla carvedilol up to 12.5 mg twice daily. No further episodes so far. Also Levaquin has been discontinued due to potential pro arrhythmic effect. Follow-up with cardiology outpatient within 2-4 weeks. Of note patient still has a loop recorder in place no arrhythmias have been reported 3. Diabetes mellitus: Resume Tradjenta, sliding scale insulin and diabetic diet 4. Hypertension: Continue current medication 5. Hyperlipidemia: Continue statin therapy 6. 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 Physical therapy reordered 7. COPD per history: Continue nebulizer treatments and Advair, also treating underlying bronchopneumonia 8. Chronic anemia: Stable H/H 9. Chronic kidney disease: Stable renal function Prophylaxis: SCDs to lower extremities for DVT prophylaxis, Protonix for GI prophylaxis Disposition: PICC line placement today, discharged back to jail facility on IV antibiotics for healthcare associated pneumonia. Follow-up with cardiology in 2-4 weeks. Subjective 24 Hr Interval Summary Free Text/Dictation Patient doing well, she is on room air stable. White count within normal. Afebrile. No shortness of breath. No further arrhythmias detected Appreciate cardiology evaluation and recommendations. Patient to be discharged back to jail facility once a PICC line placed today for IV antibiotics. Exam/Review of Systems Vital Signs Vitals Vital Signs Date Time Temp Pulse Resp B/P Pulse Ox O2 Delivery O2 Flow Rate FiO2 02/28/17 12:04 97.6 60 17 122/59 98 02/27/17 17:15 2.0 02/27/17 12:00 Room Air Intake and Output 02/27/17 02/27/17 02/28/17 15:00 23:00 07:00 Intake Total 700 ml 480 ml Balance 700 ml 480 ml Exam Constitutional: alert, oriented, other (Chronic left hemiparesis) Respiratory: clear to auscultation, normal air movement Cardiovascular: nl pulses, regular rate and rhythm Gastrointestinal: non-tender, soft Musculoskeletal: nl extremities to inspection Extremities: normal pulses Neurological: COMPOUNDER II-XII intact, focal weakness (Left hemiparesis), nl mental status, nl speech Results Result Diagram: 02/27/17 0630 02/28/17 0612 Results 24 hrs Laboratory Tests Test 02/27/17 17:06 02/27/17 21:42 02/28/17 06:12 02/28/17 08:17 Bedside Glucose 116 149 131 Sodium Level 141 Potassium Level 4.3 Chloride Level 102 Carbon Dioxide Level 27 Anion Gap 16 Blood Urea Nitrogen 17 Creatinine 0.97 Glucose Level 119 Calcium Level 8.6 Magnesium Level 1.8 Test 02/28/17 12:18 Bedside Glucose 164 Medications Medications Current Medications Ondansetron HCl (Zofran Inj) 4 mg Q4 PRN IV NAUSEA AND/OR VOMITING; Start 02/25 at 02:00 Acetaminophen (Tylenol Tab) 650 mg Q4H PRN PO MILD PAIN LEVEL 1-3 Last administered on 02/26/17 08:20; Admin Dose 650 MG; Start 02/25/17 at 02:00 Ascorbic Acid (Vitamin C) 500 mg DAILY PO Last administered on 02/28/17 09:28 ; Admin Dose 500 MG; Start 02/25/17 at 09:00 Aspirin (Halfprin) 81 mg DAILY PO Last administered on 02/28/17 09:28; Admin Dose 81 MG; Start 02/25/17 at 09:00 Atorvastatin Calcium (Lipitor) 80 mg QHS PO Last administered on 02/27/17 21: 44; Admin Dose 80 MG; Start 02/25/17 at 21:00 Bisacodyl (Dulcolax Supp) 10 mg DAILY PRN [place] CONSTIPATION; Start 02/25/17 at 02 :00 Brimonidine Tartrate (Alphagan P 0.1%) 1 drop BID BOTH EYES Last administered on 02/28/17 09:28; Admin Dose 1 DROP; Start 02/25/17 at 09:00 Cholecalciferol (Vitamin D) 1,000 unit BID PO Last administered on 02/28/17 09 :28; Admin Dose 1,000 UNIT; Start 02/25/17 at 09:00 Clopidogrel Bisulfate (plaVIX) 75 mg DAILY PO Last administered on 02/28/17 09 :28; Admin Dose 75 MG; Start 02/25/17 at 09:00 Docusate Sodium (Colace) 200 mg QHS PO Last administered on 02/27/17 21:43; Admin Dose 200 MG; Start 02/25/17 at 21:00 Linagliptin (Tradjenta) 5 mg DAILY PO Last administered on 02/28/17 09:28; Admin Dose 5 MG; Start 02/25/17 at 09:00 Magnesium Hydroxide (Milk Of Mag) 30 ml DAILY PRN PO CONSTIPATION; Start at 02:00 Multivitamins/ Minerals (Theragran-M) 1 tab DAILY PO Last administered on 09:28; Admin Dose 1 TAB; Start 02/25/17 at 09:00 Pantoprazole (Protonix Tab) 40 mg DAILY@06 PO Last administered on 02/28/17 05 :00; Admin Dose 40 MG; Start 02/25/17 at 06:00 Polyethylene Glycol (Miralax) 8.5 gm DAILY PRN PO CONSTIPATION; Start 02/25/17 at 02:00 Salmeterol Xinafoate/ Fluticasone (Advair 250/50 Diskus) 1 inh BID INH Last administered on 02/28/17 09:28; Admin Dose 1 INH; Start 02/25/17 at 09:00 Sodium Biphosphate/ Sodium Phosphate (Fleet Enema) 133 ml Q48H PRN [place] CONSTIPATION; Start 02/25/17 at 07:30 Losartan Potassium (Cozaar) 50 mg BID PO Last administered on 02/28/17 09:29; Admin Dose 50 MG; Start 02/26/17 at 09:00 Diagnostic Test (Pha) (Accu-Chek) 1 ea 02 XX ; Start 02/26/17 at 02:00 Miscellaneous Information 1 ea NOTE XX ; Start 02/25/17 at 15:30 Glucose (Glutose) 15 gm Q15M PRN PO DECREASED GLUCOSE; Start 02/25/17 at 15:30 Glucose (Glutose) 22.5 gm Q15M PRN PO DECREASED GLUCOSE; Start 02/25/17 at 15: 30 Dextrose (D50w Syringe) 25 ml Q15M PRN IV DECREASED GLUCOSE; Start 02/25/17 at 15:30 Dextrose (D50w Syringe) 50 ml Q15M PRN IV DECREASED GLUCOSE; Start 02/25/17 at 15:30 Glucagon (Glucagen) 1 mg Q15M PRN IM DECREASED GLUCOSE; Start 02/25/17 at 15:30 Glucose (Glutose) 15 gm Q15M PRN BUCCAL DECREASED GLUCOSE; Start 02/25/17 at 15 :30 Gabapentin (Neurontin) 100 mg BID PO Last administered on 02/28/17 09:28; Admin Dose 100 MG; Start 02/26/17 at 21:00 Carvedilol 12.5 mg 12.5 mg BID PO Last administered on 02/28/17 09:30; Admin Dose 12.5 MG; Start 02/27/17 at 21:00 Ertapenem/Sodium Chloride (Invanz/NS) 100 ml @ 200 mls/hr Q24H IVPB Last administered on 02/27/17 21:39; Admin Dose 200 MLS/HR; Start 02/27/17 at 20:00 DARRELL MARQUIS Feb 28, 2017 13:31
--- NOTE | 2017-02-28 13:37 | PDOCDIS ---
Discharge Instructions CONDITION Patient Condition: Good HOME CARE INSTRUCTIONS: Special Diet: 2000 ADA ACTIVITY: Activity Restrictions: Slowly Increase Activity FOLLOW UP/APPOINTMENTS Follow-up Plan Follow-up with cardiology within 2-4 weeks, Dr. Chinchilla's group Follow-up with primary care physician/residential facility physician Resume physical therapy at residential facility DARRELL MARQUIS Feb 28, 2017 13:37
--- NOTE | 2017-02-28 15:13 | RADRPT ---
PROCEDURE: XR Chest. CLINICAL INDICATION: Check PICC line position. TECHNIQUE: Single frontal view. COMPARISON: 02/26/2017. FINDINGS: There is a right arm PICC line with the tip in the lower superior vena cava. There is mild left bas ilar atelectasis. The lungs are otherwise clear. The heart is enlarged. There is calcification in the aorta consistent with atherosclerosis. There is no pleural effusion. There is no pneumothorax. IMPRESSION: 1. Right arm PICC line tip in satisfactory position. 2. Mild left basilar atelectasis. 3. Cardiomegaly and atherosclerosis. RPTAT: QQ .Gurjit Amaya MD, MD Date Time Electronically viewed and signed by .Gurjit Amaya MD, on 02/28/2017 15:13 .R/
[2017-02-28] MEDS ORDERED: SOD CHLORIDE 0.9% 100 ML ONE (17:47)
--- NOTE | 2017-02-28 18:05 | RADRPT ---
PROCEDURE: Ultrasound guidance for placement of needle in right upper extremity vein. CLINICAL INDICATION: Venous access. TECHNIQUE: Limited sonography of the right upper extremity was performed. Ultrasound images were recorded and stored in the patient's medical record. COMPARISON: None. FINDINGS: The ultrasound images demonstrate a patent right upper extremity vein. The PICC line was inserted b y the PICC line nurse. IMPRESSION: 1. Ultrasound guidance for a needle placement in a right upper extremity vein. 2. The visualized right upper extremity vein is patent. RPTAT: QQ .Gurjit Amaya MD, MD Date Time Electronically viewed and signed by .Gurjit Amaya MD, MD on 02/28/2017 18:04 .R/
[2017-02-28] MEDS: ATORVASTATIN 80 MG TAB PO SCH (20:06)
[2017-02-28] MEDS: ACETAMINOPHEN 325 MG TAB PO PRN (20:06)
[2017-02-28] MEDS: DOCUSATE SODIUM 100 MG CAP PO SCH (20:06)
[2017-02-28] MEDS: ERTAPENEM SODIUM 1 GM in SOD CHLORIDE 0.9% 100 ML IVPB SCH (20:07)
== END 2017-02-28 22:35 | DRG 194 ==
LOC: E/R 14:49 → MS4 19:16
PROVIDERS: ADMIT Internal Medicine; ATTEND Internal Medicine
PROC: 02HV33Z Insertion of Infusion Device into Superior Vena Cava, Percutaneous Approach (ICD-10-PCS; principal; 2017-02-28)
PROC: B548ZZA Ultrasonography of Superior Vena Cava, Guidance (ICD-10-PCS; 2017-02-28)
DX: J18.9 Pneumonia, unspecified organism (principal); I69.354 Hemiplegia and hemiparesis following cerebral infarction affecting left non-dominant side; E11.22 Type 2 diabetes mellitus with diabetic chronic kidney disease; I42.9 Cardiomyopathy, unspecified; I47.1 Supraventricular tachycardia; I12.9 Hypertensive chronic kidney disease with stage 1 through stage 4 chronic kidney disease, or unspecified chronic kidney disease; N18.9 Chronic kidney disease, unspecified; K21.9 Gastro-esophageal reflux disease without esophagitis; M81.0 Age-related osteoporosis without current pathological fracture; H40.9 Unspecified glaucoma; I65.02 Occlusion and stenosis of left vertebral artery; J44.9 Chronic obstructive pulmonary disease, unspecified; E78.5 Hyperlipidemia, unspecified; D64.9 Anemia, unspecified; Z79.4 Long term (current) use of insulin; Z79.02 Long term (current) use of antithrombotics/antiplatelets; Z79.82 Long term (current) use of aspirin; Z87.891 Personal history of nicotine dependence; Z90.710 Acquired absence of both cervix and uterus
CPT/HCPCS: 36415; 36569; 71010; 76937; 80048; 80053; 80061; 81001; 82962; 83605; 83735; 84100; 84484; 85025; 85610; 85730; 87040; 87086; 93005; 94640; 94664; 96365; 96366; 96372; 96375; 97116; 97162; 97530; J0696; J1335; J1815; J1956; J3370; J3475; J7030

== ENCOUNTER 2017-03-04 15:15 | Inpatient (IN) | payer OTHER ==
[~2017-03-04] VITALS: Ht 157.5 cm; Wt 72.2 kg
[~2017-03-04 15:15] MED LIST changes: -ACET-2047 PO; +ACET325T45 PO; +CAND16TA11 PO; -CARV3.12 PO; -CRAN425C PO; -DEXT38GE15 PO; -ENOX30DI10 SQ; -FAMO20TA18 PO; +GABA100C14 PO; +GLUC1VIA6 IJ; -IRBE1TAB33 PO; -LISI2.5T59 PO; +MV-M1TAB37 PO; -OCUVITE PO; +PANT40TA3 PO; -TEM15CR5 TOP
[2017-03-04] MEDS ORDERED: LEVETIRACETAM 1000 MG (PMX) 100 ML IVPB STA (15:19)
[2017-03-04] MEDS ORDERED: SOD CHLORIDE 0.9% 1,000 ML IV STA (15:19)
[2017-03-04 15:41] LABS: BASOPHIL # 0.1 10^3/ul (0.0-0.1); BASOPHILS % 0.7 % (0.0-2.0); EOSINOPHILS # 0.4 10^3/ul (0.0-0.5); EOSINOPHILS % 5.2 % (0.0-7.0); HEMOGLOBIN 11.4 g/dl (12.0-16.0); LYMPHOCYTES # 1.2 10^3/ul (0.8-2.9); LYMPHOCYTES % 17.1 % (15.0-51.0); MEAN CORPUSCULAR HEMOGLOBIN 30.9 pg (29.0-33.0); MEAN CORPUSCULAR HGB CONC 33.5 g/dl (32.0-37.0); MEAN CORPUSCULAR VOLUME 92.1 fl (82.0-101.0); MEAN PLATELET VOLUME 10.1 fl (7.4-10.4); MONOCYTE # 0.4 10^3/ul (0.3-0.9); MONOCYTES % 5.6 % (0.0-11.0); NEUTROPHIL # 4.8 10^3/ul (1.6-7.5); PLATELET COUNT 419 10^3/UL (140-415); RED BLOOD COUNT 3.69 10^6/ul (4.20-5.40); WHITE BLOOD COUNT 6.8 10^3/ul (4.8-10.8)
[2017-03-04 15:56] LABS: INR 0.92; PARTIAL THROMBOPLASTIN TIME 32.4 Sec (25.0-35.0); PROTIME 12.4 Sec (12.2-14.2)
[2017-03-04 15:58] LABS: ANION GAP 18 (8-16); BLOOD UREA NITROGEN 21 mg/dl (7-20); CALCIUM 9.1 mg/dl (8.4-10.2); CARBON DIOXIDE 27 mmol/L (21-31); CHLORIDE 100 mmol/L (97-110); CREATININE 1.26 mg/dl (0.44-1.00); GLUCOSE 116 mg/dl (70-220); POTASSIUM 4.3 mmol/L (3.5-5.1); SODIUM 141 mmol/L (135-144)
[2017-03-04 16:13] LABS: TROPONIN-I < 0.012 ng/ml (0.00-0.12)
[2017-03-04] MEDS ORDERED: ONDANSETRON 4 MG INJ IV STA (16:16)
[2017-03-04] MEDS ORDERED: morphine 4 MG/ML VIAL IV STA (16:16)
--- NOTE | 2017-03-04 16:19 | RADRPT ---
PROCEDURE: CT Brain without contrast. CLINICAL INDICATION: Patient experiencing Seizure (Perform CT without Contrast) TECHNIQUE: A CT of the brain was performed on a multidetector CT scanner utilizing axial imaging f rom the skull base through the vertex without IV contrast. Multiplanar reformatted images were made . Images were reviewed on a PACS workstation. The CTDIvol is 45.01 mGy and the DLP is 810.25 mGycm . COMPARISON: CT brain 01/15/2017 and MRI brain 01/07/2017 FINDINGS: Evaluation is limited by a suboptimal head positioning and motion/streak artifact. There is no acute intracranial hemorrhage. No abnormal extra-axial collection is seen. There is no m idline shift or mass. There is no focal loss of davis-white matter differentiation to suggest an acut e cortical infarct. Redemonstrated is extensive encephalomalacia involving primarily the right precentral and right post central gyri, stable and consistent with chronic right frontal parietal infarct. Also redemonstrate d is confluent low attenuation in the right insular subcortical white matter, stable and compatible with ischemia related white matter gliosis. There is moderate diffuse cerebral volume loss. The ventricles are stable in size, without evidence of hydrocephalous. There is nonspecific patchy periventricular and subcortical cerebral white matter low attenuation, likely representing sequelae of chronic microvascular ischemic cerebral white magdy er disease, not significantly changed compared to prior CT of 01/15/2017. A 2 mm hypodensity in the left central nina corresponds to a small pontine infarcts seen on prior MR I brain of 01/07/2017. The paranasal sinuses and mastoid air cells are clear. The orbits are unremarkable. No acute fracture or suspicious osseous lesion is identified. IMPRESSION: 1. No evidence of acute intracranial pathology. No significant change when compared to the most re cent prior CT brain of 01/15/2017. 2. Stable extensive encephalomalacia involving the right precentral and postcentral gyri, compatibl e with prior cerebral infarct. 3. Moderate diffuse cerebral volume loss. 4. 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 5. Punctate lacunar infarct in the left central nina, corresponding to small pontine infarct seen on prior MRI of 01/07/2017. RPTAT: EE Jesus Miller, Physician Date Time Electronically viewed and signed by Jesus Miller Physician on 03/04/2017 16:18 /
[2017-03-04] MEDS ORDERED: CRAN425C PO (16:25)
[2017-03-04] MEDS ORDERED: NOVO3I SC (16:32)
[2017-03-04] MEDS ORDERED: ACETAMINOPHEN 325 MG TAB PO PRN ×2 (17:00→17:30)
[2017-03-04] MEDS ORDERED: ONDANSETRON 4 MG INJ IV PRN ×2 (17:00→17:30)
[2017-03-04] MEDS ORDERED: CARV12.579 PO (17:05)
[2017-03-04] MEDS ORDERED: LOSA50TA6 PO (17:06)
[2017-03-04] MEDS ORDERED: ADV25050 INHALATION (17:06)
[2017-03-04] MEDS ORDERED: PANT40TA3 PO (17:09)
--- NOTE | 2017-03-04 17:28 | HP ---
Date/Time of Note Date/Time of Note DATE: 03/04/17 TIME: 16:53 Assessment/Plan VTE Prophylaxis VTE Prophylaxis Intervention: SCD's Lines/Catheters IV Catheter Type (from Nrs): PICC Line Central line still needed: Yes (IV abx ) Assessment/Plan Assessment/Plan 76-year-old female with: 1. New onset seizures: Patient has been witnessed in the emergency department to have partial complex seizures and also did progress to an episode of grand mal seizure at the senior care facility. CAT scan of the head with no acute intracranial pathology. Keppra 1000 mg IV twice daily started, Ativan as needed for seizures. Neurology consult EEG 2. Pneumonia or bronchopneumonia, healthcare associated, We will continue Imipenem and Vancomycin to complete her total of 14 day course of antibiotic treatment. Continue nebulizer treatment as needed, incentive spirometer, cough suppressant as needed. 3. 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 4. Diabetes mellitus: Continue Tradjenta, sliding scale insulin and diabetic diet 5. Hypertension: Continue current medication and will also add hydralazine as needed. Hypertensive episodes that the patient had so far today seems to be related to active seizures actually. 6. Hyperlipidemia: Continue statin therapy 7. COPD per history: Continue nebulizer treatments and Advair, also treating underlying bronchopneumonia 8. Chronic anemia: Stable H/H 9. Chronic kidney disease: Stable renal function Prophylaxis: SCDs to lower extremities for DVT prophylaxis, Protonix for GI prophylaxis Disposition: Monitor on telemetry, IV Keppra and as needed Ativan, neurology evaluation, EEG will be ordered and additional studies is recommended by neurology. HPI/ROS Admit Date/Time Admit Date/Time Hx of Present Illness Chief complaint: Seizures History of presenting illness: This is a 76-year-old female with known history of old cerebrovascular accident left thalamus, right hemiparesis, hypertension, recent diagnosis of healthcare associated bronchopneumonia, and recently discharged back to senior care facility, today she was witnessed to have episode of partial complex seizure followed by a grand mal seizure. Again in the emergency department she was witnessed to have a partial complex seizure. She has tremors of her right lower extremity, deviation of her head and eyes towards the left, however she is able to answer questions and redirect herself if called. Her speech is clear, she knows what is going on. During her grand mal seizure according to the nurse practitioner at the senior care facility , she did lose consciousness at that time and was postictal afterwards. Patient has been given 1 g of Keppra in the emergency department, I will continue with Keppra 1000 mg twice daily, EEG will be ordered and neurology consulted. Her blood pressure has improved a lot once her seizures were controlled. ROS Constitutional: other (right lower extremity tremulous and patient seems to lateralize her eyes to the left on and off) Eyes: no complaints ENT: no complaints Respiratory: no complaints Cardiovascular: no complaints Gastrointestinal: no complaints Genitourinary: no complaints Musculoskeletal: no complaints Skin: no complaints Neurologic: focal-weakness (left hemiparesis), other (Tremors of the right lower extremity noted), seizure (Partial complex and tonic-clonic seizures witnessed today) Endocrine: no complaints Psychological: no complaints Immunologic: no complaints PMH/Family/Social Past Medical History Old cerebrovascular accident with left hemiparesis Diabetes mellitus Congestive heart failure, systolic dysfunction with ejection fraction around 40% Hyperlipidemia Hypertension Chronic kidney disease stage II-III Past Surgical History Status post hysterectomy remotely Family History Significant Family History: no pertinent family hx Social History Alcohol Use: none Smoking Status: Never smoker Drug Use: none Exam/Review of Systems Vital Signs Vitals Vital Signs Date Time Temp Pulse Resp B/P Pulse Ox O2 Delivery O2 Flow Rate FiO2 03/04/17 15:17 99.8 96 20 216/88 98 Exam Constitutional: alert, frail, oriented, other (Left hemiparesis, right lower extremity tremors) Eyes: other (Occasionally lateralization of her head) Respiratory: clear to auscultation, normal air movement Cardiovascular: nl pulses, regular rate and rhythm Gastrointestinal: non-tender, soft Musculoskeletal: nl extremities to inspection Extremities: normal pulses, other (No edema, clubbing or cyanosis) Neurological: focal weakness (Left hemiparesis), nl mental status, nl speech, other (Tremors of the right lower extremity) Labs Result Diagram: 03/04/17 1535 03/04/17 1535 DARRELL MARQUIS Mar 04, 2017 17:11
[2017-03-04] MEDS ORDERED: LORAZEPAM 2 MG INJ IV PRN (17:30)
[2017-03-04] MEDS ORDERED: BISACODYL 10 MG SUPP PR PRN (17:30)
[2017-03-04] MEDS ORDERED: DOCUSATE SODIUM 100 MG CAP PO PRN (17:30)
[2017-03-04] MEDS ORDERED: morphine 2 MG INJ IV PRN (17:30)
[2017-03-04] MEDS ORDERED: HYDROCODONE/APAP (5/325) TAB PO PRN (17:30)
[2017-03-04] MEDS ORDERED: NACL 0.9% 3 ML SYG IV SCH (17:30)
[2017-03-04] MEDS ORDERED: MAGNESIUM HYDROXIDE 30ML CUP PO PRN (17:30)
[2017-03-04] MEDS ORDERED: DEXTROSE 50% 50 ML SYRINGE IV PRN ×2 (18:00)
[2017-03-04] MEDS ORDERED: GLUCOSE GEL 15 GRAM TUBE PO PRN ×2 (18:00)
[2017-03-04] MEDS ORDERED: GLUCAGON 1 MG INJ IM PRN (18:00)
[2017-03-04] MEDS ORDERED: LEVALBUTEROL (NEB) 0.63 MG/3 ML AMP INH PRN (18:00)
[2017-03-04] MEDS ORDERED: VANCOMYCIN IV PER PHARMACY XX SCH (18:00)
[2017-03-04] MEDS ORDERED: POLYETHYLENE GLYCOL 17 GM PACKET PO PRN (18:00)
[2017-03-04] MEDS ORDERED: GLUCOSE GEL 15 GRAM TUBE BUCCAL PRN (18:00)
[2017-03-04] MEDS ORDERED: VANCOMYCIN 1 GM in NS 250 ML IVPB SCH (18:30)
--- NOTE | 2017-03-04 18:52 | ERA ---
ER Documentation Chief Complaint Date/Time DATE: 03/04/17 TIME: 18:48 Chief Complaint seizure new onset HPI Patient is a 76-year-old female with stroke and hypertension who presents with seizure activity. The patient was brought in by ambulance. The daughter says she is having shaking and a left-sided gaze preference. She was confused and "cannot see anything". She had a recent stroke on December 06. She was brought in by ambulance. Her sugar was 286. She has had multiple episodes of this which started today and she has never had seizures in the past. Her primary doctor is Dr. Bonilla. ROS All systems reviewed and are negative except as per history of present illness. Medications Home Meds Reported Medications Pantoprazole* (Protonix*) 40 Mg Tablet.dr, 40 MG PO DAILY, TAB 03/04/17 Salmeterol Xinaf/Fluticasone* (Advair*) 250-50 Diskus Inhaler, 1 INH INHALATION BID, #1 INHALER 03/04/17 Losartan Potassium* (Losartan Potassium*) 50 Mg Tablet, 50 MG PO BID, TAB 03/04/17 Carvedilol* (Carvedilol*) 12.5 Mg Tablet, 12.5 MG PO BID, #60 TAB 03/04/17 Insulin Aspart* (Novolog Insulin Pen*) 100 Unit/Ml Soln, 0 SC .SLIDING SCALE AC , EA IF BS 0-150=0,151-200=2 UNITS,201-250=4 UNITS,251-300=6 UNITS, 301-350=8 UNITS,351-400=10 UNITS, ABOVE 401=12 UNITS OR CALL 03/04/17 Cranberry Extract (Cranberry) 425 Mg Capsule, 425 MG PO DAILY, CAP 03/04/17 Gabapentin* (Gabapentin*) 100 Mg Capsule, 100 MG PO BID, #90 CAP 02/26/17 Docusate Sodium* (Docusate Sodium*) 100 Mg Capsule, 200 MG PO QHS, #60 CAP 02/24/17 Glucagon HCl (Glucagon HCl) 1 Mg Vial, 1 MG IJ Q15MIN Y for NEEDED, VIAL FOR BS BELOW 70. REPEAT Q15MIN WITH BS>80 02/24/17 Clopidogrel Bisulfate (Clopidogrel) 75 Mg Tablet, 75 MG PO DAILY, #30 TAB 02/24/17 Acetaminophen* (Acetaminophen*) 325 Mg Tablet, 650 MG PO Q4H Y for MILD PAIN LEVEL 1-3, #30 TAB 02/24/17 Levalbuterol Hcl* (Levalbuterol Hcl*) 0.63 Mg/3 Ml Vial.neb, 0.63 MG INHALATION Q6H Y for WHEEZING AND SOB, VIAL 02/24/17 Ascorbic Acid* (Vitamin C*) 500 Mg Capsule.sa, 500 MG PO DAILY, CAP 01/06/17 Acetaminophen* (Acetaminophen*) 500 MG Extra Strength Tablet, 1000 MG PO Q6H Y for MODERATE PAIN LEVEL 4-6, TAB 01/06/17 Linagliptin (TRADJENTA) 5 Mg Tablet, 5 MG PO DAILY, TAB 01/06/17 Multivits,Ca,Minerals/Iron/FA (Thera M Plus Tablet) 1 Each Tablet, 1 TAB PO DAILY, TAB 01/06/17 Polyethylene Glycol* (Miralax*) 17 Gm Powd.pack, 8.5 GM PO DAILY Y for CONSTIPATION, #30 PACKET 01/06/17 Magnesium Hydroxide* (Milk Of Magnesia*) 400 Mg/5 Ml Oral.susp, 30 ML PO DAILY Y for CONSTIPATION, ML 01/06/17 Atorvastatin* (Atorvastatin*) 80 Mg Tablet, 80 MG PO QHS, #30 TAB 01/06/17 Bisacodyl* (Bisacodyl*) 10 Mg Supp, 10 MG ND DAILY Y for CONSTIPATION, SUPP 01/06/17 Na Phos,M-B/Na Phos,Di-Ba (Fleet Enema Extra) 230 Ml Enema, 230 ML RC Q48H PRN Y for CONSTIPATION, ENEMA 01/06/17 Brimonidine Tartrate* (Alphagan P*) 0.1%-15 Ml Opht Drops, 1 DROP BOTH EYES BID , #1 EA INSTILL 1 DROP INTO BOTH EYES TWICE A DAY DIRECTED 12/05/16 Cholecalciferol* (Vitamin D3*) 1,000 Unit Tablet, 1000 UNIT PO BID, TAB 01/11/15 Aspirin* (Aspirin* EC) 81 Mg Tablet.dr, 81 MG PO DAILY, TAB 05/06/14 Discontinued Reported Medications Candesartan Cilexetil (Candesartan Cilexetil) 16 Mg Tablet, 16 MG PO DAILY, TAB HOLD FOR SBP BELOW 110 02/24/17 Hydrocodone/Acetaminophen ([place] 5-325 Tablet) 1 Each Tablet, 1 EACH PO Q6H Y for PAIN LEVEL 7-9/10, TAB 02/24/17 Mv-Mn/FA/Vit K/Lycop/Lut/Zeaxa (Ocuvite Eye + Multi Tablet) 1 Each Tablet, 1 EACH PO DAILY, TAB 02/24/17 Pantoprazole* (Protonix*) 40 Mg Tablet.dr, 40 MG PO DAILY, TAB 02/24/17 Salmeterol Xinaf/Fluticasone* (Advair*) 250-50 Diskus Inhaler, 1 INH INHALATION BID, #1 INHALER 01/06/17 Allergies Allergies: Coded Allergies: Penicillins (Unverified Allergy, Unknown, 02/24/17) PMhx/Soc History of Surgery: Yes (HYSTERECTOMY) Anesthesia Reaction: Yes Hx Neurological Disorder: Yes (CVA W/LEFT SIDED WEAKNESS) Hx Respiratory Disorders: No (PNEUMONIA, COPD, ) Hx Cardiac Disorders: No (HTN, DMII, HYPERLIPIDEMIA,CHF) Hx Psychiatric Problems: No Hx Miscellaneous Medical Probl: Yes (ANEMIA, CKD, NSTEMI. CERBROVASCULAR DX) Hx Alcohol Use: No Hx Substance Use: No Hx Tobacco Use: No Smoking Status: Never smoker FmHx Family History: diabetes Physical Exam Vitals Vital Signs Date Time Temp Pulse Resp B/P Pulse Ox O2 Delivery O2 Flow Rate FiO2 03/04/17 16:30 97.9 77 25 148/71 98 Nasal Cannula 2.0 03/04/17 15:17 99.8 96 20 216/88 98 Physical Exam Const: Moderate distress with seizure activity Head: Atraumatic Eyes: Normal Conjunctiva ENT: Normal External Ears, Nose and Mouth. Neck: Full range of motion..~ No meningismus. Resp: Clear to auscultation bilaterally Cardio: Regular rate and rhythm, no murmurs Abd: Soft, non tender, non distended. Normal bowel sounds Skin: No petechiae or rashes Back: No midline or flank tenderness Ext: No cyanosis, or edema Neur: Awake but left-sided gaze preference, right-sided shaking consistent with a complex partial seizure Result Diagram: 03/04/17 1535 03/04/17 1535 Results 24 hrs Laboratory Tests Test 03/04/17 15:35 White Blood Count 6.810^3/ul Red Blood Count 3.6910^6/ul Hemoglobin 11.4g/dl Hematocrit 34.0% Mean Corpuscular Volume 92.1fl Mean Corpuscular Hemoglobin 30.9pg Mean Corpuscular Hemoglobin Concent 33.5g/dl Red Cell Distribution Width 13.0% Platelet Count 71367^3/UL Mean Platelet Volume 10.1fl Neutrophils % 71.0% Lymphocytes % 17.1% Monocytes % 5.6% Eosinophils % 5.2% Basophils % 0.7% Nucleated Red Blood Cells % 0.0/100WBC Neutrophils # 4.810^3/ul Lymphocytes # 1.210^3/ul Monocytes # 0.410^3/ul Eosinophils # 0.410^3/ul Basophils # 0.110^3/ul Nucleated Red Blood Cells # 0.010^3/ul Prothrombin Time 12.4Sec Prothrombin Time Ratio 1.0 INR International Normalized Ratio 0.92 Activated Partial Thromboplast Time 32.4Sec Sodium Level 141mmol/L Potassium Level 4.3mmol/L Chloride Level 100mmol/L Carbon Dioxide Level 27mmol/L Anion Gap 18 Blood Urea Nitrogen 21mg/dl Creatinine 1.26mg/dl Glucose Level 116mg/dl Calcium Level 9.1mg/dl Troponin I < 0.012ng/ml Thyroid Stimulating Hormone (TSH) 0.968MIU/L Free Thyroxine 1.56ng/dl Current Medications Medications (Trade) Dose Ordered Sig/Alicia Route PRN Reason Start Time Stop Time Status Last Admin Dose Admin Sodium Chloride 1,000 ml @ 1,000 mls/hr Q1H STAT IV 03/04/17 15:19 03/04/17 16:18 DC 03/04/17 16:29 Levetiracetam (Keppra 1,000mg/ 100ml (Pmx)) 100 ml @ 400 mls/hr ONCE STAT IVPB 03/04/17 15:19 03/04/17 15:33 DC 03/04/17 16:31 Morphine Sulfate (morphine) 4 mg ONCE STAT IV 03/04/17 16:16 03/04/17 16:17 DC 03/04/17 16:30 Ondansetron HCl (Zofran Inj) 4 mg ONCE STAT IV 03/04/17 16:16 03/04/17 16:17 DC 03/04/17 16:30 Ondansetron HCl (Zofran Inj) 4 mg ER BRIDGE PRN IV NAUSEA AND/OR VOMITING 03/04/17 17:00 03/04/17 18:00 DC Acetaminophen 650 mg 650 mg ER BRIDGE PRN PO MILD PAIN/FEVER 03/04/17 17:00 03/04/17 18:00 DC Sodium Chloride (NS) 1,000 ml @ 100 mls/hr Q10H IV 03/04/17 17:28 IV Flush (NS 3 ml) 3 ml PER PROTOCOL IV 03/04/17 17:30 Lorazepam (Ativan) 1 mg Q4 PRN IV SEIZURES 03/04/17 17:30 Ondansetron HCl (Zofran Inj) 4 mg Q6H PRN IV NAUSEA AND/OR VOMITING 03/04/17 17:30 Acetaminophen (Tylenol Tab) 650 mg Q6H PRN PO PAIN LEVEL 1-3 OR FEVER 03/04/17 17:30 Acetaminophen/ Hydrocodone Bitart ([place] (5/325)) 1 tab Q6H PRN PO PAIN LEVEL 4-6 03/04/17 17:30 Morphine Sulfate (morphine) 2 mg Q4H PRN IV PAIN LEVEL 7-10 03/04/17 17:30 Docusate Sodium (Colace) 100 mg Q12H PRN PO CONSTIPATION 03/04/17 17:30 Magnesium Hydroxide (Milk Of Mag) 30 ml DAILY PRN PO CONSTIPATION 03/04/17 17:30 Bisacodyl (Dulcolax Supp) 10 mg DAILY PRN ND CONSTIPATION 03/04/17 17:30 Ascorbic Acid (Vitamin C) 500 mg DAILY PO 03/05/17 09:00 Aspirin (Halfprin) 81 mg DAILY PO 03/05/17 09:00 Atorvastatin Calcium (Lipitor) 80 mg QHS PO 03/04/17 21:00 Brimonidine Tartrate (Alphagan P 0.1%) 1 drop BID BOTH EYES 03/04/17 21:00 Carvedilol (Coreg) 12.5 mg BID PO 03/04/17 21:00 Cholecalciferol (Vitamin D) 1,000 unit BID PO 03/04/17 21:00 Clopidogrel Bisulfate (plaVIX) 75 mg DAILY PO 03/05/17 09:00 Docusate Sodium (Colace) 200 mg QHS PO 03/04/17 21:00 Gabapentin (Neurontin) 100 mg BID PO 03/04/17 21:00 Levalbuterol (Xopenex Neb) 0.63 mg Q6H RESP THERAPY PRN INH WHEEZING AND SOB 03/04/17 18:00 Linagliptin (Tradjenta) 5 mg DAILY PO 03/05/17 09:00 Losartan Potassium (Cozaar) 50 mg BID PO 03/04/17 21:00 Multivitamins/ Minerals (Theragran-M) 1 tab DAILY PO 03/05/17 09:00 Pantoprazole (Protonix Tab) 40 mg DAILY PO 03/05/17 09:00 Polyethylene Glycol (Miralax) 8.5 gm DAILY PRN PO CONSTIPATION 03/04/17 18:00 Salmeterol Xinafoate/ Fluticasone (Advair 250/50 Diskus) 1 inh BID INH 03/04/17 21:00 Hydralazine HCl 10 mg 10 mg Q8H PRN IV ELEVATED BLOOD PRESSURE 03/04/17 18:00 Levetiracetam (Keppra 1,000mg/ 100ml (Pmx)) 100 ml @ 400 mls/hr Q12 IVPB 03/04/17 21:00 Miscellaneous Information (* Miscellaneous Pharmacy Order) Discontinue current oral sulfonylur... ONCE ONCE XX 03/04/17 18:00 03/04/17 18:01 DC Diagnostic Test (Pha) (Accu-Chek) 1 ea 02 XX 03/05/17 02:00 Miscellaneous Information (* Miscellaneous Pharmacy Order) HYPOGLYCEMIA PROTOCOL w... ONCE ONCE XX 03/04/17 18:00 03/04/17 18:01 DC Insulin Aspart (Novolog Insulin Pen) NOVOLOG *MILD* ALGORITHM WITH MEALS BEDTIME SC 03/04/17 18:00 Miscellaneous Information (* Miscellaneous Pharmacy Order) Discontinue all previ... ONCE ONCE XX 03/04/17 18:00 03/04/17 18:01 DC Vancomycin HCl VANCOMYCIN PER PHARMACY PER PROTOCOL XX 03/04/17 18:00 Ertapenem/Sodium Chloride (Invanz/NS) 100 ml @ 200 mls/hr Q24H IVPB 03/04/17 18:00 Miscellaneous Information 1 ea NOTE XX 03/04/17 18:00 Glucose (Glutose) 15 gm Q15M PRN PO DECREASED GLUCOSE 03/04/17 18:00 Glucose (Glutose) 22.5 gm Q15M PRN PO DECREASED GLUCOSE 03/04/17 18:00 Dextrose (D50w Syringe) 25 ml Q15M PRN IV DECREASED GLUCOSE 03/04/17 18:00 Dextrose (D50w Syringe) 50 ml Q15M PRN IV DECREASED GLUCOSE 03/04/17 18:00 Glucagon (Glucagen) 1 mg Q15M PRN IM DECREASED GLUCOSE 03/04/17 18:00 Glucose 15 gm 15 gm Q15M PRN BUCCAL DECREASED GLUCOSE 03/04/17 18:00 Vancomycin HCl (Vancocin) 250 ml @ 125 mls/hr NOW IVPB 03/04/17 18:30 03/04/17 20:29 Procedures/MDM CT brain shows chronic changes but no acute bleed per radiology. EKG read by me: Rate/Rhythm: Bigeminy at a rate of 88 Intervals: Normal Impression: Bigeminy with a normal rate Patient is a 76-year-old female with previous stroke and hypertension presents with new onset seizure. The patient is having complex partial seizures and has had multiple episodes today. The patient was given Keppra 1 g IV in the emergency department. The patient will be admitted to the care of Dr. Moreno as she has [place] insurance. The patient will be admitted to a telemetry bed. At this point there is no sign of intracranial mass or hemorrhage. The patient is likely having seizure from irritation to the brain from recent stroke. Departure Diagnosis: Primary Impression: Complex partial seizure Qualified Code: G40.209 - Partial symptomatic epilepsy with complex partial seizures, not intractable, without status epilepticus Condition: ELAINE Daniel MD Mar 04, 2017 18:52
[2017-03-04 19:26] VITALS: TEMP 97.9
[2017-03-04 20:33] VITALS: PULSE 62
[2017-03-04 20:53] VITALS: BP 144/76; RESP 20
[2017-03-04 21:00] VITALS: Ht 157.5 cm; Wt 72.2 kg
[2017-03-04] MEDS: INSULIN ASPART [NOVOLOG] 3 ML PEN SC SCH (21:00)
[2017-03-04] MEDS: DOCUSATE SODIUM 100 MG CAP PO SCH (22:17)
[2017-03-04] MEDS: GABAPENTIN 100 MG CAP PO SCH (22:20)
[2017-03-04] MEDS: ATORVASTATIN 80 MG TAB PO SCH (22:20)
[2017-03-04] MEDS: CHOLECALCIFEROL 1,000 UNIT TAB PO SCH (22:20)
[2017-03-04] MEDS: LOSARTAN 50 MG TAB PO SCH (22:20)
[2017-03-04] MEDS: SOD CHLORIDE 0.9% 1,000 ML IV SCH (22:56)
[2017-03-04] MEDS: BRIMONIDINE 0.1% 5 ML OPH BOTH EYES SCH (23:56)
[2017-03-04] MEDS: SALMETEROL/FLUTICASONE 250/50 INHA INH SCH (23:57)
[2017-03-05] VITALS (13 sets, daily range): BP systolic 128–178; BP diastolic 60–81; PULSE 50–71; RESP 18–20
[2017-03-05] MEDS: INSULIN ASPART [NOVOLOG] 3 ML PEN SC SCH ×5 (00:03→22:18)
[2017-03-05] MEDS: ACCU-CHEK XX SCH (00:06)
[2017-03-05] MEDS: LEVETIRACETAM 1000 MG (PMX) 100 ML IVPB SCH ×3 (00:59→20:46)
[2017-03-05] MEDS: SOD CHLORIDE 0.9% 1,000 ML IV SCH ×2 (01:33→11:17)
[2017-03-05] MEDS: ERTAPENEM SODIUM 1 GM in SOD CHLORIDE 0.9% 100 ML IVPB SCH ×2 (01:33→17:32)
[2017-03-05 07:47] LABS: BASOPHILS % 0.7 % (0.0-2.0); EOSINOPHILS # 0.4 10^3/ul (0.0-0.5); EOSINOPHILS % 6.7 % (0.0-7.0); HEMATOCRIT 29.6 % (37.0-47.0); HEMOGLOBIN 9.7 g/dl (12.0-16.0); LYMPHOCYTES % 16.5 % (15.0-51.0); MEAN CORPUSCULAR HEMOGLOBIN 31.1 pg (29.0-33.0); MEAN CORPUSCULAR HGB CONC 32.8 g/dl (32.0-37.0); MEAN CORPUSCULAR VOLUME 94.9 fl (82.0-101.0); MEAN PLATELET VOLUME 10.1 fl (7.4-10.4); MONOCYTE # 0.3 10^3/ul (0.3-0.9); NEUTROPHIL # 4.1 10^3/ul (1.6-7.5); NEUTROPHILS % 70.4 % (39.0-77.0); PLATELET COUNT 343 10^3/UL (140-415); RED BLOOD COUNT 3.12 10^6/ul (4.20-5.40); RED CELL DISTRIBUTION WIDTH 13.1 % (11.5-14.5); WHITE BLOOD COUNT 5.8 10^3/ul (4.8-10.8)
[2017-03-05 08:03] LABS: ALBUMIN 2.9 g/dl (3.3-4.9); ALBUMIN/GLOBULIN RATIO 1.03; BILIRUBIN,INDIRECT 0.2 mg/dl (0-1.1); BILIRUBIN,TOTAL 0.2 mg/dl (0.2-1.3); CALCIUM 8.3 mg/dl (8.4-10.2); CREATININE 0.91 mg/dl (0.44-1.00); MAGNESIUM 1.8 mg/dl (1.7-2.5); POTASSIUM 4.2 mmol/L (3.5-5.1); TOTAL PROTEIN 5.7 g/dl (6.1-8.1)
[2017-03-05] MEDS: CHOLECALCIFEROL 1,000 UNIT TAB PO SCH ×2 (09:51→20:48)
[2017-03-05] MEDS: GABAPENTIN 100 MG CAP PO SCH ×2 (09:51→20:47)
[2017-03-05] MEDS: ASCORBIC ACID 500 MG TAB PO SCH (09:51)
[2017-03-05] MEDS: LINAGLIPTIN 5 MG TABLET PO SCH (09:51)
[2017-03-05] MEDS: MULTIVITAMINS/MINERALS TAB PO SCH (09:51)
[2017-03-05] MEDS: PANTOPRAZOLE (EC) 40 MG TAB PO SCH (09:51)
[2017-03-05] MEDS: ASPIRIN (EC) 81 MG TAB PO SCH (09:51)
[2017-03-05] MEDS: CLOPIDOGREL 75 MG TAB PO SCH (09:51)
[2017-03-05] MEDS: LOSARTAN 50 MG TAB PO SCH ×2 (09:52→20:47)
[2017-03-05] MEDS: SALMETEROL/FLUTICASONE 250/50 INHA INH SCH ×2 (09:52→20:46)
[2017-03-05] MEDS: BRIMONIDINE 0.1% 5 ML OPH BOTH EYES SCH ×2 (09:52→20:46)
--- NOTE | 2017-03-05 10:44 | PN ---
Date/Time of Note Date/Time of Note DATE: 03/05/17 TIME: 10:36 Assessment/Plan VTE Prophylaxis VTE Prophylaxis Intervention: SCD's Lines/Catheters IV Catheter Type (from Nrs): PICC Line Central line still needed: Yes (IV access) Assessment/Plan Assessment/Plan 76-year-old female with: 1. New onset seizures: Patient has been witnessed in the emergency department to have partial complex seizures and also did progress to an episode of grand mal seizure at the half-way facility. CAT scan of the head with no acute intracranial pathology. Continue Keppra 1000 mg IV twice daily, Ativan as needed for seizures. Neurology consult with Dr. Ortega EEG pending 2. Pneumonia or bronchopneumonia, healthcare associated, We will continue Imipenem and Vancomycin to complete her total of 14 day course of antibiotic treatment. Continue nebulizer treatment as needed, incentive spirometer, cough suppressant as needed. 3. 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 4. Peripheral neuropathy: Patient has been on gabapentin 100 mg p.o. twice daily which will be continued for now 5. Diabetes mellitus: Continue Tradjenta, sliding scale insulin and diabetic diet 6. Hypertension: Better controlled blood pressure, continue current medication and hydralazine as needed. Hypertensive episodes that the patient had so far seemed to be related to active seizures actually. 7. Hyperlipidemia: Continue statin therapy 8. COPD per history: Continue nebulizer treatments and Advair, also treating underlying bronchopneumonia 9. Chronic anemia: Stable H/H 10. Chronic kidney disease: Stable renal function Prophylaxis: SCDs to lower extremities for DVT prophylaxis, Protonix for GI prophylaxis Disposition: Monitor on telemetry, IV Keppra and as needed Ativan, neurology evaluation, EEG pending and additional studies if recommended by neurology. Subjective 24 Hr Interval Summary Free Text/Dictation No reported episodes of seizures overnight since ER Patient on Keppra, EEG and neurology evaluation pending Exam/Review of Systems Vital Signs Vitals Vital Signs Date Time Temp Pulse Resp B/P Pulse Ox O2 Delivery O2 Flow Rate FiO2 03/05/17 08:33 59 03/05/17 06:55 97.9 18 140/66 100 03/04/17 21:00 Nasal Cannula 2.0 Intake and Output 03/04/17 03/04/17 03/05/17 15:00 23:00 07:00 Intake Total 1050 ml Balance 1050 ml Exam Constitutional: alert, oriented, other (Left hemiparesis), well developed Respiratory: clear to auscultation, normal air movement Cardiovascular: nl pulses, regular rate and rhythm Gastrointestinal: non-tender, soft Musculoskeletal: other (Left hemiparesis) Extremities: normal pulses, other (No edema, clubbing or cyanosis) Neurological: RESTAURANT HOST II-XII intact, focal weakness (Left hemiparesis), nl mental status, nl speech Results Result Diagram: 03/05/17 0710 03/05/17 0720 Results 24 hrs Laboratory Tests Test 03/04/17 15:35 03/05/17 00:01 03/05/17 07:10 03/05/17 07:20 White Blood Count 6.8 # 5.8 Red Blood Count 3.69 L 3.12 L Hemoglobin 11.4 L 9.7 L Hematocrit 34.0 L 29.6 L Mean Corpuscular Volume 92.1 94.9 Mean Corpuscular Hemoglobin 30.9 31.1 Mean Corpuscular Hemoglobin Concent 33.5 32.8 Red Cell Distribution Width 13.0 13.1 Platelet Count 419 #H 343 Mean Platelet Volume 10.1 10.1 Neutrophils % 71.0 70.4 Lymphocytes % 17.1 16.5 Monocytes % 5.6 5.0 Eosinophils % 5.2 6.7 Basophils % 0.7 0.7 Nucleated Red Blood Cells % 0.0 0.0 Neutrophils # 4.8 4.1 Lymphocytes # 1.2 1.0 Monocytes # 0.4 0.3 Eosinophils # 0.4 0.4 Basophils # 0.1 0.0 Nucleated Red Blood Cells # 0.0 0.0 Prothrombin Time 12.4 Prothrombin Time Ratio 1.0 INR International Normalized Ratio 0.92 Activated Partial Thromboplast Time 32.4 Sodium Level 141 143 Potassium Level 4.3 4.2 Chloride Level 100 106 Carbon Dioxide Level 27 27 Anion Gap 18 H 14 Blood Urea Nitrogen 21 H 19 Creatinine 1.26 H 0.91 Glucose Level 116 107 Calcium Level 9.1 8.3 L Troponin I < 0.012 Thyroid Stimulating Hormone (TSH) 0.968 Free Thyroxine 1.56 Bedside Glucose 133 Phosphorus Level 4.5 Magnesium Level 1.8 Total Bilirubin 0.2 Direct Bilirubin 0.00 Indirect Bilirubin 0.2 Aspartate Amino Transf (AST/SGOT) 16 Alanine Aminotransferase (ALT/SGPT) 32 Alkaline Phosphatase 48 Total Protein 5.7 L Albumin 2.9 L Globulin 2.80 Albumin/Globulin Ratio 1.03 Test 03/05/17 08:34 Bedside Glucose 117 Medications Medications Current Medications Sodium Chloride (NS) 1,000 ml @ 100 mls/hr Q10H IV Last administered on 22:56; Admin Dose 100 MLS/HR; Start 03/04/17 at 17:28 Lorazepam (Ativan) 1 mg Q4 PRN IV SEIZURES; Start 03/04/17 at 17:30 Ondansetron HCl (Zofran Inj) 4 mg Q6H PRN IV NAUSEA AND/OR VOMITING; Start 03/04 at 17:30 Acetaminophen (Tylenol Tab) 650 mg Q6H PRN PO PAIN LEVEL 1-3 OR FEVER; Start at 17:30 Acetaminophen/ Hydrocodone Bitart ([place] (5/325)) 1 tab Q6H PRN PO PAIN LEVEL 4 -6; Start 03/04/17 at 17:30 Morphine Sulfate (morphine) 2 mg Q4H PRN IV PAIN LEVEL 7-10; Start 03/04/17 at 17:30 Docusate Sodium (Colace) 100 mg Q12H PRN PO CONSTIPATION; Start 03/04/17 at 17: 30 Magnesium Hydroxide (Milk Of Mag) 30 ml DAILY PRN PO CONSTIPATION; Start at 17:30 Bisacodyl (Dulcolax Supp) 10 mg DAILY PRN [place] CONSTIPATION; Start 03/04/17 at 17: 30 Ascorbic Acid (Vitamin C) 500 mg DAILY PO Last administered on 03/05/17 09:51; Admin Dose 500 MG; Start 03/05/17 at 09:00 Aspirin (Halfprin) 81 mg DAILY PO Last administered on 03/05/17 09:51; Admin Dose 81 MG; Start 03/05/17 at 09:00 Atorvastatin Calcium (Lipitor) 80 mg QHS PO Last administered on 03/04/17 22:20 ; Admin Dose 80 MG; Start 03/04/17 at 21:00 Brimonidine Tartrate (Alphagan P 0.1%) 1 drop BID BOTH EYES Last administered on 03/05/17 09:52; Admin Dose 1 DROP; Start 03/04/17 at 21:00 Carvedilol (Coreg) 12.5 mg BID PO Last administered on 03/04/17 22:19; Admin Dose 12.5 MG; Start 03/04/17 at 21:00 Cholecalciferol (Vitamin D) 1,000 unit BID PO Last administered on 03/05/17 09: 51; Admin Dose 1,000 UNIT; Start 03/04/17 at 21:00 Clopidogrel Bisulfate (plaVIX) 75 mg DAILY PO Last administered on 03/05/17 09: 51; Admin Dose 75 MG; Start 03/05/17 at 09:00 Docusate Sodium (Colace) 200 mg QHS PO Last administered on 03/04/17 22:17; Admin Dose 200 MG; Start 03/04/17 at 21:00 Gabapentin (Neurontin) 100 mg BID PO Last administered on 03/05/17 09:51; Admin Dose 100 MG; Start 03/04/17 at 21:00 Linagliptin (Tradjenta) 5 mg DAILY PO Last administered on 03/05/17 09:51; Admin Dose 5 MG; Start 03/05/17 at 09:00 Losartan Potassium (Cozaar) 50 mg BID PO Last administered on 03/05/17 09:52; Admin Dose 50 MG; Start 03/04/17 at 21:00 Multivitamins/ Minerals (Theragran-M) 1 tab DAILY PO Last administered on 09:51; Admin Dose 1 TAB; Start 03/05/17 at 09:00 Pantoprazole (Protonix Tab) 40 mg DAILY PO Last administered on 03/05/17 09:51 ; Admin Dose 40 MG; Start 03/05/17 at 09:00 Polyethylene Glycol (Miralax) 8.5 gm DAILY PRN PO CONSTIPATION; Start 03/04/17 at 18:00 Salmeterol Xinafoate/ Fluticasone (Advair 250/50 Diskus) 1 inh BID INH Last administered on 03/05/17 09:52; Admin Dose 1 INH; Start 03/04/17 at 21:00 Hydralazine HCl 10 mg 10 mg Q8H PRN IV ELEVATED BLOOD PRESSURE; Start 03/04/17 at 18:00 Levetiracetam (Keppra 1,000mg/ 100ml (Pmx)) 100 ml @ 400 mls/hr Q12 IVPB Last administered on 03/05/17 00:59; Admin Dose 400 MLS/HR; Start 03/04/17 at 21:00 Diagnostic Test (Pha) 1 ea 1 ea 02 XX ; Start 03/05/17 at 02:00 Ertapenem/Sodium Chloride (Invanz/NS) 100 ml @ 200 mls/hr Q24H IVPB Last administered on 03/05/17 01:33; Admin Dose 200 MLS/HR; Start 03/04/17 at 18:00 Miscellaneous Information 1 ea NOTE XX ; Start 03/04/17 at 18:00 Glucose (Glutose) 15 gm Q15M PRN PO DECREASED GLUCOSE; Start 03/04/17 at 18:00 Glucose (Glutose) 22.5 gm Q15M PRN PO DECREASED GLUCOSE; Start 03/04/17 at 18:00 Dextrose (D50w Syringe) 25 ml Q15M PRN IV DECREASED GLUCOSE; Start 03/04/17 at 18:00 Dextrose (D50w Syringe) 50 ml Q15M PRN IV DECREASED GLUCOSE; Start 03/04/17 at 18:00 Glucagon (Glucagen) 1 mg Q15M PRN IM DECREASED GLUCOSE; Start 03/04/17 at 18:00 Glucose 15 gm 15 gm Q15M PRN BUCCAL DECREASED GLUCOSE; Start 03/04/17 at 18:00 Vancomycin HCl (Vancocin) 250 ml @ 125 mls/hr Q24H IVPB ; Start 03/05/17 at 22: 00 DARRELL MARQUIS Mar 05, 2017 10:44
--- NOTE | 2017-03-05 12:54 | CONS ---
Date/Time of Note Date/Time of Note DATE: 03/05/17 TIME: 12:45 Assessment/Plan Assessment/Plan Chief Complaint/Hosp Course 76 yo female with CHF, prior Right MCA CVA tx with IV tPA mechanism presumably intracranial atherosclerosis recent admission for pontine lacunar type stroke managed on dual antiplatelet therapy admitted with new onset partial complex seizures. Continue Keppra 1 g BID MRI Brain w/o contrast to eval for new stroke EEG completed to be reviewed infectious work up continue all other home medications will follow again tomorrow seizure precautions, ativan 0.1 mg/kg max dose 4 mg for seizure Problems: Consultation Date/Type/Reason Admit Date/Time 03/05/17 Date of Consultation: Mar 05, 2017 Type of Consultation: Neurology Reason for Consultation seizures Referring Provider: DARRELL MARQUIS Hx of Present Illness 76 year old female known to me from prior admissions with hx of CHF EF:35% prior Right MCA syndrome s/p IV tPA on previous admission with intracranial atherosclerosis being managed on dual antiplatelet therapy, admission in January for paramedian lacunar stroke, hypertensive emergency admitted with new onset partial complex seizures. Patient recalls being in Nursing facility had a left gaze deviation and felt her eyes move left with jerking to left arm and leg. She was noted to have a generalized seizure at the nursing facility per report. Keppra 1 gram BID was started. lethargic Eyes: no complaints ENT: no complaints Respiratory: no complaints Cardiovascular: no complaints Gastrointestinal: no complaints Genitourinary: no complaints Musculoskeletal: no complaints Skin: no complaints Neurologic: focal-weakness (left hemiparesis), other (Tremors of the right lower extremity noted), seizure (Partial complex and tonic-clonic seizures witnessed today) Psychological: no complaints Immunologic: no complaints Past Medical History CHF HTN CVA Social History Alcohol Use: none Smoking Status: Never smoker Drug Use: none Exam/Review of Systems Vital Signs Vitals Vital Signs Date Time Temp Pulse Resp B/P Pulse Ox O2 Delivery O2 Flow Rate FiO2 03/05/17 12:14 98.3 53 18 157/75 100 03/05/17 08:10 Nasal Cannula 2.0 Intake and Output 03/04/17 03/04/17 03/05/17 15:00 23:00 07:00 Intake Total 1050 ml Balance 1050 ml Exam drowsy able to arouse after repeat stimulation able to recognize me, hospital CN: MARIALUISA left gaze preference, left facial droop Motor: left arm lifts anti-gravity, left leg only lifts for a few seconds with drift right arm and leg intact Results Result Diagram: 03/05/17 0710 03/05/17 0720 Results 24 hrs Laboratory Tests Test 03/04/17 15:35 03/05/17 00:01 03/05/17 07:10 03/05/17 07:20 White Blood Count 6.8 # 5.8 Red Blood Count 3.69 L 3.12 L Hemoglobin 11.4 L 9.7 L Hematocrit 34.0 L 29.6 L Mean Corpuscular Volume 92.1 94.9 Mean Corpuscular Hemoglobin 30.9 31.1 Mean Corpuscular Hemoglobin Concent 33.5 32.8 Red Cell Distribution Width 13.0 13.1 Platelet Count 419 #H 343 Mean Platelet Volume 10.1 10.1 Neutrophils % 71.0 70.4 Lymphocytes % 17.1 16.5 Monocytes % 5.6 5.0 Eosinophils % 5.2 6.7 Basophils % 0.7 0.7 Nucleated Red Blood Cells % 0.0 0.0 Neutrophils # 4.8 4.1 Lymphocytes # 1.2 1.0 Monocytes # 0.4 0.3 Eosinophils # 0.4 0.4 Basophils # 0.1 0.0 Nucleated Red Blood Cells # 0.0 0.0 Prothrombin Time 12.4 Prothrombin Time Ratio 1.0 INR International Normalized Ratio 0.92 Activated Partial Thromboplast Time 32.4 Sodium Level 141 143 Potassium Level 4.3 4.2 Chloride Level 100 106 Carbon Dioxide Level 27 27 Anion Gap 18 H 14 Blood Urea Nitrogen 21 H 19 Creatinine 1.26 H 0.91 Glucose Level 116 107 Calcium Level 9.1 8.3 L Troponin I < 0.012 Thyroid Stimulating Hormone (TSH) 0.968 Free Thyroxine 1.56 Bedside Glucose 133 Phosphorus Level 4.5 Magnesium Level 1.8 Total Bilirubin 0.2 Direct Bilirubin 0.00 Indirect Bilirubin 0.2 Aspartate Amino Transf (AST/SGOT) 16 Alanine Aminotransferase (ALT/SGPT) 32 Alkaline Phosphatase 48 Total Protein 5.7 L Albumin 2.9 L Globulin 2.80 Albumin/Globulin Ratio 1.03 Test 03/05/17 08:34 Bedside Glucose 117 Medications Medications Current Medications Sodium Chloride (NS) 1,000 ml @ 100 mls/hr Q10H IV Last administered on 11:17; Admin Dose 100 MLS/HR; Start 03/04/17 at 17:28 Lorazepam (Ativan) 1 mg Q4 PRN IV SEIZURES; Start 03/04/17 at 17:30 Ondansetron HCl (Zofran Inj) 4 mg Q6H PRN IV NAUSEA AND/OR VOMITING; Start 03/04 at 17:30 Acetaminophen (Tylenol Tab) 650 mg Q6H PRN PO PAIN LEVEL 1-3 OR FEVER; Start at 17:30 Acetaminophen/ Hydrocodone Bitart ([place] (5/325)) 1 tab Q6H PRN PO PAIN LEVEL 4 -6; Start 03/04/17 at 17:30 Morphine Sulfate (morphine) 2 mg Q4H PRN IV PAIN LEVEL 7-10; Start 03/04/17 at 17:30 Docusate Sodium (Colace) 100 mg Q12H PRN PO CONSTIPATION; Start 03/04/17 at 17: 30 Magnesium Hydroxide (Milk Of Mag) 30 ml DAILY PRN PO CONSTIPATION; Start at 17:30 Bisacodyl (Dulcolax Supp) 10 mg DAILY PRN [place] CONSTIPATION; Start 03/04/17 at 17: 30 Ascorbic Acid (Vitamin C) 500 mg DAILY PO Last administered on 03/05/17 09:51; Admin Dose 500 MG; Start 03/05/17 at 09:00 Aspirin (Halfprin) 81 mg DAILY PO Last administered on 03/05/17 09:51; Admin Dose 81 MG; Start 03/05/17 at 09:00 Atorvastatin Calcium (Lipitor) 80 mg QHS PO Last administered on 03/04/17 22:20 ; Admin Dose 80 MG; Start 03/04/17 at 21:00 Brimonidine Tartrate (Alphagan P 0.1%) 1 drop BID BOTH EYES Last administered on 03/05/17 09:52; Admin Dose 1 DROP; Start 03/04/17 at 21:00 Carvedilol (Coreg) 12.5 mg BID PO Last administered on 03/04/17 22:19; Admin Dose 12.5 MG; Start 03/04/17 at 21:00 Cholecalciferol (Vitamin D) 1,000 unit BID PO Last administered on 03/05/17 09: 51; Admin Dose 1,000 UNIT; Start 03/04/17 at 21:00 Clopidogrel Bisulfate (plaVIX) 75 mg DAILY PO Last administered on 03/05/17 09: 51; Admin Dose 75 MG; Start 03/05/17 at 09:00 Docusate Sodium (Colace) 200 mg QHS PO Last administered on 03/04/17 22:17; Admin Dose 200 MG; Start 03/04/17 at 21:00 Gabapentin (Neurontin) 100 mg BID PO Last administered on 03/05/17 09:51; Admin Dose 100 MG; Start 03/04/17 at 21:00 Linagliptin (Tradjenta) 5 mg DAILY PO Last administered on 03/05/17 09:51; Admin Dose 5 MG; Start 03/05/17 at 09:00 Losartan Potassium (Cozaar) 50 mg BID PO Last administered on 03/05/17 09:52; Admin Dose 50 MG; Start 03/04/17 at 21:00 Multivitamins/ Minerals (Theragran-M) 1 tab DAILY PO Last administered on 09:51; Admin Dose 1 TAB; Start 03/05/17 at 09:00 Pantoprazole (Protonix Tab) 40 mg DAILY PO Last administered on 03/05/17 09:51 ; Admin Dose 40 MG; Start 03/05/17 at 09:00 Polyethylene Glycol (Miralax) 8.5 gm DAILY PRN PO CONSTIPATION; Start 03/04/17 at 18:00 Salmeterol Xinafoate/ Fluticasone (Advair 250/50 Diskus) 1 inh BID INH Last administered on 03/05/17 09:52; Admin Dose 1 INH; Start 03/04/17 at 21:00 Hydralazine HCl 10 mg 10 mg Q8H PRN IV ELEVATED BLOOD PRESSURE; Start 03/04/17 at 18:00 Levetiracetam (Keppra 1,000mg/ 100ml (Pmx)) 100 ml @ 400 mls/hr Q12 IVPB Last administered on 03/05/17 11:17; Admin Dose 400 MLS/HR; Start 03/04/17 at 21:00 Diagnostic Test (Pha) 1 ea 1 ea 02 XX ; Start 03/05/17 at 02:00 Ertapenem/Sodium Chloride (Invanz/NS) 100 ml @ 200 mls/hr Q24H IVPB Last administered on 03/05/17t 01:33; Admin Dose 200 MLS/HR; Start 03/04/17 at 18:00 Miscellaneous Information 1 ea NOTE XX ; Start 03/04/17 at 18:00 Glucose (Glutose) 15 gm Q15M PRN PO DECREASED GLUCOSE; Start 03/04/17 at 18:00 Glucose (Glutose) 22.5 gm Q15M PRN PO DECREASED GLUCOSE; Start 03/04/17 at 18:00 Dextrose (D50w Syringe) 25 ml Q15M PRN IV DECREASED GLUCOSE; Start 03/04/17 at 18:00 Dextrose (D50w Syringe) 50 ml Q15M PRN IV DECREASED GLUCOSE; Start 03/04/17 at 18:00 Glucagon (Glucagen) 1 mg Q15M PRN IM DECREASED GLUCOSE; Start 03/04/17 at 18:00 Glucose 15 gm 15 gm Q15M PRN BUCCAL DECREASED GLUCOSE; Start 03/04/17 at 18:00 Vancomycin HCl (Vancocin) 250 ml @ 125 mls/hr Q24H IVPB ; Start 03/05/17 at 22: 00 LENNY MELGOZA MD Mar 05, 2017 12:54
[2017-03-05] MEDS ORDERED: VANCOMYCIN 750 MG in SOD CHLORIDE 0.9% 150 ML IVPB SCH (18:00)
[2017-03-05] MEDS: ATORVASTATIN 80 MG TAB PO SCH (20:47)
[2017-03-05] MEDS: DOCUSATE SODIUM 100 MG CAP PO SCH (20:47)
[2017-03-05] MEDS: VANCOMYCIN 1 GM in NS 250 ML IVPB SCH (22:11)
[2017-03-06] VITALS (13 sets, daily range): BP systolic 135–163; BP diastolic 55–76; PULSE 58–151; RESP 16–20
[2017-03-06] MEDS: ACCU-CHEK XX SCH (01:52)
[2017-03-06] MEDS: SOD CHLORIDE 0.9% 1,000 ML IV SCH ×3 (01:59→19:28)
--- NOTE | 2017-03-06 05:28 | PRO ---
DATE OF PROCEDURE: 03/05/2017 INDICATION: This is a 76-year-old woman who was admitted with new onset seizure. CURRENT MEDICATIONS: 1. Neurontin. 2. Keppra. DESCRIPTION OF PROCEDURE: Utilizing a 16-channel EEG machine, cap scalp electrodes were applied in accordance with 10-20 system. Scalp montages were obtained. Electrical impulses were measured and reported. During the resting state, posterior dominant rhythm for about 8-9 [place]z were seen bi-hemispherically. Photic stimulation had a good response. Hyperventilation was not performed. There was no focal lateralizing or epileptiform discharges identified. INTERPRETATION: This is a normal EEG. A normal EEG does not exclude seizure disorder. Please correlate clinically. Dictated By: Maryan Sheffield MD /[email or web address] /Document#: [id number]
[2017-03-06 06:44] LABS: BASOPHILS % 0.6 % (0.0-2.0); EOSINOPHILS # 0.4 10^3/ul (0.0-0.5); EOSINOPHILS % 5.9 % (0.0-7.0); HEMATOCRIT 30.1 % (37.0-47.0); HEMOGLOBIN 9.8 g/dl (12.0-16.0); LYMPHOCYTES % 15.3 % (15.0-51.0); MEAN CORPUSCULAR HEMOGLOBIN 30.9 pg (29.0-33.0); MEAN CORPUSCULAR HGB CONC 32.6 g/dl (32.0-37.0); MEAN PLATELET VOLUME 10.4 fl (7.4-10.4); MONOCYTE # 0.3 10^3/ul (0.3-0.9); MONOCYTES % 3.9 % (0.0-11.0); NEUTROPHIL # 4.9 10^3/ul (1.6-7.5); PLATELET COUNT 318 10^3/UL (140-415); RED BLOOD COUNT 3.17 10^6/ul (4.20-5.40); RED CELL DISTRIBUTION WIDTH 12.9 % (11.5-14.5); WHITE BLOOD COUNT 6.6 10^3/ul (4.8-10.8)
[2017-03-06 07:13] LABS: CALCIUM 8.2 mg/dl (8.4-10.2); CREATININE 0.86 mg/dl (0.44-1.00); POTASSIUM 4.1 mmol/L (3.5-5.1)
[2017-03-06 07:17] LABS: MAGNESIUM 1.8 mg/dl (1.7-2.5)
[2017-03-06] MEDS: INSULIN ASPART [NOVOLOG] 3 ML PEN SC SCH ×4 (07:55→20:33)
[2017-03-06] MEDS: BRIMONIDINE 0.1% 5 ML OPH BOTH EYES SCH ×2 (09:13→20:33)
[2017-03-06] MEDS: SALMETEROL/FLUTICASONE 250/50 INHA INH SCH ×2 (09:13→20:33)
[2017-03-06] MEDS: LEVETIRACETAM 1000 MG (PMX) 100 ML IVPB SCH ×2 (09:15→20:32)
[2017-03-06] MEDS: ASCORBIC ACID 500 MG TAB PO SCH (09:16)
[2017-03-06] MEDS: CLOPIDOGREL 75 MG TAB PO SCH (09:16)
[2017-03-06] MEDS: LOSARTAN 50 MG TAB PO SCH ×2 (09:16→20:30)
[2017-03-06] MEDS: MULTIVITAMINS/MINERALS TAB PO SCH (09:16)
[2017-03-06] MEDS: CHOLECALCIFEROL 1,000 UNIT TAB PO SCH ×2 (09:17→20:31)
[2017-03-06] MEDS: PANTOPRAZOLE (EC) 40 MG TAB PO SCH (09:17)
[2017-03-06] MEDS: ASPIRIN (EC) 81 MG TAB PO SCH (09:17)
[2017-03-06] MEDS: GABAPENTIN 100 MG CAP PO SCH ×2 (09:17→20:28)
[2017-03-06] MEDS: LINAGLIPTIN 5 MG TABLET PO SCH (09:17)
--- NOTE | 2017-03-06 11:00 | CONS ---
Date/Time of Note Date/Time of Note DATE: 03/06/17 TIME: 10:58 Consult Date/Type/Reason Admit Date/Time Mar 04, 2017 at 16:44 Initial Consult Date 03/05/17 Type of Consultation: Neurology Reason for Consultation seizure Ordering Provider: DARRELL MARQUIS Subjective no events overnight no further seizures more awake today tolerating Keppra Objective Vital Signs Date Time Temp Pulse Resp B/P Pulse Ox O2 Delivery O2 Flow Rate FiO2 03/06/17 08:46 65 03/06/17 08:30 Nasal Cannula 2.0 03/06/17 07:55 98.2 18 154/69 99 Intake and Output 03/05/17 03/05/17 03/06/17 15:00 23:00 07:00 Intake Total 100 ml 1300 ml 1665 ml Balance 100 ml 1300 ml 1665 ml Exam awake and alert oriented x 2 able to recognize me, hospital CN: MARIALUISA left gaze preference, left facial droop Motor: left arm lifts anti-gravity, left leg only lifts for a few seconds with drift right arm and leg intact Results/Medications Result Diagram: 03/06/17 0602 03/06/17 0540 Results 24 hrs Laboratory Tests Test 03/05/17 12:39 03/05/17 17:30 03/05/17 22:17 03/06/17 05:40 Bedside Glucose 157 112 125 Sodium Level 143 Potassium Level 4.1 Chloride Level 107 Carbon Dioxide Level 25 Anion Gap 15 Blood Urea Nitrogen 17 Creatinine 0.86 Glucose Level 94 Calcium Level 8.2 L Test 03/06/17 06:02 03/06/17 06:28 03/06/17 08:00 White Blood Count 6.6 Red Blood Count 3.17 L Hemoglobin 9.8 L Hematocrit 30.1 L Mean Corpuscular Volume 95.0 Mean Corpuscular Hemoglobin 30.9 Mean Corpuscular Hemoglobin Concent 32.6 Red Cell Distribution Width 12.9 Platelet Count 318 Mean Platelet Volume 10.4 Neutrophils % 74.0 Lymphocytes % 15.3 Monocytes % 3.9 Eosinophils % 5.9 Basophils % 0.6 Nucleated Red Blood Cells % 0.0 Neutrophils # 4.9 Lymphocytes # 1.0 Monocytes # 0.3 Eosinophils # 0.4 Basophils # 0.0 Nucleated Red Blood Cells # 0.0 Phosphorus Level 4.0 Magnesium Level 1.8 Bedside Glucose 98 Medications Current Medications Sodium Chloride (NS) 1,000 ml @ 100 mls/hr Q10H IV Last administered on 01:59; Admin Dose 100 MLS/HR; Start 03/04/17 at 17:28 Lorazepam (Ativan) 1 mg Q4 PRN IV SEIZURES; Start 03/04/17 at 17:30 Ondansetron HCl (Zofran Inj) 4 mg Q6H PRN IV NAUSEA AND/OR VOMITING; Start 03/04 at 17:30 Acetaminophen (Tylenol Tab) 650 mg Q6H PRN PO PAIN LEVEL 1-3 OR FEVER; Start at 17:30 Acetaminophen/ Hydrocodone Bitart ([place] (5/325)) 1 tab Q6H PRN PO PAIN LEVEL 4 -6; Start 03/04/17 at 17:30 Morphine Sulfate (morphine) 2 mg Q4H PRN IV PAIN LEVEL 7-10; Start 03/04/17 at 17:30 Docusate Sodium (Colace) 100 mg Q12H PRN PO CONSTIPATION; Start 03/04/17 at 17: 30 Magnesium Hydroxide (Milk Of Mag) 30 ml DAILY PRN PO CONSTIPATION; Start at 17:30 Bisacodyl (Dulcolax Supp) 10 mg DAILY PRN [place] CONSTIPATION; Start 03/04/17 at 17: 30 Ascorbic Acid (Vitamin C) 500 mg DAILY PO Last administered on 03/06/17 09:16; Admin Dose 500 MG; Start 03/05/17 at 09:00 Aspirin (Halfprin) 81 mg DAILY PO Last administered on 03/06/17 09:17; Admin Dose 81 MG; Start 03/05/17 at 09:00 Atorvastatin Calcium (Lipitor) 80 mg QHS PO Last administered on 03/05/17 20:47 ; Admin Dose 80 MG; Start 03/04/17 at 21:00 Brimonidine Tartrate (Alphagan P 0.1%) 1 drop BID BOTH EYES Last administered on 03/06/17 09:13; Admin Dose 1 DROP; Start 03/04/17 at 21:00 Carvedilol (Coreg) 12.5 mg BID PO Last administered on 03/06/17 09:17; Admin Dose 12.5 MG; Start 03/04/17 at 21:00 Cholecalciferol (Vitamin D) 1,000 unit BID PO Last administered on 03/06/17 09: 17; Admin Dose 1,000 UNIT; Start 03/04/17 at 21:00 Clopidogrel Bisulfate (plaVIX) 75 mg DAILY PO Last administered on 03/06/17 09: 16; Admin Dose 75 MG; Start 03/05/17 at 09:00 Docusate Sodium (Colace) 200 mg QHS PO Last administered on 03/05/17 20:47; Admin Dose 200 MG; Start 03/04/17 at 21:00 Gabapentin (Neurontin) 100 mg BID PO Last administered on 03/06/17 09:17; Admin Dose 100 MG; Start 03/04/17 at 21:00 Linagliptin (Tradjenta) 5 mg DAILY PO Last administered on 03/06/17 09:17; Admin Dose 5 MG; Start 03/05/17 at 09:00 Losartan Potassium (Cozaar) 50 mg BID PO Last administered on 03/06/17 09:16; Admin Dose 50 MG; Start 03/04/17 at 21:00 Multivitamins/ Minerals (Theragran-M) 1 tab DAILY PO Last administered on 09:16; Admin Dose 1 TAB; Start 03/05/17 at 09:00 Pantoprazole (Protonix Tab) 40 mg DAILY PO Last administered on 03/06/17 09:17 ; Admin Dose 40 MG; Start 03/05/17 at 09:00 Polyethylene Glycol (Miralax) 8.5 gm DAILY PRN PO CONSTIPATION; Start 03/04/17 at 18:00 Salmeterol Xinafoate/ Fluticasone (Advair 250/50 Diskus) 1 inh BID INH Last administered on 03/06/17 09:13; Admin Dose 1 INH; Start 03/04/17 at 21:00 Hydralazine HCl 10 mg 10 mg Q8H PRN IV ELEVATED BLOOD PRESSURE; Start 03/04/17 at 18:00 Levetiracetam (Keppra 1,000mg/ 100ml (Pmx)) 100 ml @ 400 mls/hr Q12 IVPB Last administered on 03/06/17 09:15; Admin Dose 400 MLS/HR; Start 03/04/17 at 21:00 Diagnostic Test (Pha) 1 ea 1 ea 02 XX ; Start 03/05/17 at 02:00 Ertapenem/Sodium Chloride (Invanz/NS) 100 ml @ 200 mls/hr Q24H IVPB Last administered on 03/05/17 17:32; Admin Dose 200 MLS/HR; Start 03/04/17 at 18:00; Stop 03/06/17 at 19:00 Miscellaneous Information 1 ea NOTE XX ; Start 03/04/17 at 18:00 Glucose (Glutose) 15 gm Q15M PRN PO DECREASED GLUCOSE; Start 03/04/17 at 18:00 Glucose (Glutose) 22.5 gm Q15M PRN PO DECREASED GLUCOSE; Start 03/04/17 at 18:00 Dextrose (D50w Syringe) 25 ml Q15M PRN IV DECREASED GLUCOSE; Start 03/04/17 at 18:00 Dextrose (D50w Syringe) 50 ml Q15M PRN IV DECREASED GLUCOSE; Start 03/04/17 at 18:00 Glucagon (Glucagen) 1 mg Q15M PRN IM DECREASED GLUCOSE; Start 03/04/17 at 18:00 Glucose 15 gm 15 gm Q15M PRN BUCCAL DECREASED GLUCOSE; Start 03/04/17 at 18:00 Vancomycin HCl (Vancocin) 250 ml @ 125 mls/hr Q24H IVPB Last administered on 22:11; Admin Dose 125 MLS/HR; Start 03/05/17 at 22:00; Stop 03/06/17 at 23 :59 Assessment/Plan Chief Complaint/Hosp Course 76 yo female with CHF, prior Right MCA CVA tx with IV tPA mechanism presumably intracranial atherosclerosis recent admission for pontine lacunar type stroke managed on dual antiplatelet therapy admitted with recent pneumonia fevers and new onset partial complex seizures. Continue Keppra 1 g BID MRI Brain w/o contrast to eval for new stroke - if unable to obtain due to ILR may obtain repeat Head CT without contrast continue all other home medications seizure precautions, ativan 0.1 mg/kg max dose 4 mg for seizure dc planning once repeat imaging completed to evaluate for new strokes Problems: LENNY MELGOZA MD Mar 06, 2017 11:00
[2017-03-06] MEDS ORDERED: MAGNESIUM SULFATE 2 GM/50 ML 50 ML IVPB ONE (13:00)
--- NOTE | 2017-03-06 15:54 | CONS ---
Date/Time of Note Date/Time of Note DATE: 03/06/17 TIME: 15:41 Assessment/Plan Assessment/Plan Additional Assessment/Plan Newly diagnosed seizure Nonsustained ventricular tachycardia History of CVA Left vertebral artery stenosis Hypertension Cerebral artery disease Diabetes Cardiomyopathy with ejection fraction 40% Paroxysmal atrial tachycardia -Patient with asymptomatic nonsustained ventricular tachycardia noted on telemetry, with 5 complexes seen this morning. Patient on Coreg, as mentioned, family requesting to stop Coreg because of concern for increased fatigue. I did discuss given her history of vascular disease as well as recurrent episodes of ventricular tachycardia, she would benefit from beta-blockade. Would try lower dose of 6.25 twice daily and follow response. Maintain potassium above 4.0 and magnesium above 2.0. I have already ordered magnesium supplementation. Continue dual antiplatelet therapy and statin therapy. Consultation Date/Type/Reason Admit Date/Time Mar 04, 2017 at 16:44 Type of Consultation: cv Reason for Consultation Ventricular tachycardia Hx of Present Illness This is a 76-year-old female with extensive past medical history including cerebral vascular disease, multiple CVAs, recent pneumonia with sepsis who returns back to our facility secondary to seizures. This was seen at her facility as well as witness at our facility. Patient undergoing neurologic evaluation. On telemetry, patient with episode of nonsustained ventricular tachycardia, for this reason, cardiology consultation was requested. Discussion with daughter at bedside, patient with increased fatigue with her Coreg at the higher dose of 12.5 mg twice a day that was increased on the previous admission. As per daughter, patient was feeling much better when she was off the Coreg. No current chest pain, palpitations, shortness of breath. Eyes: no complaints ENT: no complaints Respiratory: no complaints Cardiovascular: no complaints Gastrointestinal: no complaints Genitourinary: no complaints Musculoskeletal: no complaints Skin: no complaints Neurologic: focal-weakness (left hemiparesis), other (Tremors of the right lower extremity noted), seizure (Partial complex and tonic-clonic seizures witnessed today) Psychological: no complaints Immunologic: no complaints Past Medical History History of CVA Left vertebral artery stenosis Hypertension Cerebral artery disease Diabetes Cardiomyopathy with ejection fraction 40% Paroxysmal atrial tachycardia Nonsustained ventricular tachycardia Family History Significant Family History: no pertinent family hx Social History Alcohol Use: none Smoking Status: Never smoker Drug Use: none Other Social History From facility Exam/Review of Systems Vital Signs Vitals Vital Signs Date Time Temp Pulse Resp B/P Pulse Ox O2 Delivery O2 Flow Rate FiO2 03/06/17 15:12 98.0 70 16 154/55 98 03/06/17 08:30 Nasal Cannula 2.0 Intake and Output 03/05/17 03/05/17 03/06/17 15:00 23:00 07:00 Intake Total 100 ml 1300 ml 1665 ml Balance 100 ml 1300 ml 1665 ml Exam Awake, appears tired, no apparent distress, following commands Head: normocephalic Respiratory: other (Coarse breath sounds bilaterally, no wheezing) Cardiovascular: other (S1-S2 heard), regular rate and rhythm Gastrointestinal: bowel sounds, non-tender, other (No guarding), soft Extremities: edema Results Result Diagram: 03/06/17 0602 03/06/17 0540 Results 24 hrs Laboratory Tests Test 03/05/17 17:30 03/05/17 22:17 03/06/17 05:40 03/06/17 06:02 Bedside Glucose 112 125 Sodium Level 143 Potassium Level 4.1 Chloride Level 107 Carbon Dioxide Level 25 Anion Gap 15 Blood Urea Nitrogen 17 Creatinine 0.86 Glucose Level 94 Calcium Level 8.2 L White Blood Count 6.6 Red Blood Count 3.17 L Hemoglobin 9.8 L Hematocrit 30.1 L Mean Corpuscular Volume 95.0 Mean Corpuscular Hemoglobin 30.9 Mean Corpuscular Hemoglobin Concent 32.6 Red Cell Distribution Width 12.9 Platelet Count 318 Mean Platelet Volume 10.4 Neutrophils % 74.0 Lymphocytes % 15.3 Monocytes % 3.9 Eosinophils % 5.9 Basophils % 0.6 Nucleated Red Blood Cells % 0.0 Neutrophils # 4.9 Lymphocytes # 1.0 Monocytes # 0.3 Eosinophils # 0.4 Basophils # 0.0 Nucleated Red Blood Cells # 0.0 Test 03/06/17 06:28 03/06/17 08:00 03/06/17 12:39 Phosphorus Level 4.0 Magnesium Level 1.8 Bedside Glucose 98 142 Medications Medications Current Medications Sodium Chloride (NS) 1,000 ml @ 100 mls/hr Q10H IV Last administered on t 01:59; Admin Dose 100 MLS/HR; Start 03/04/17 at 17:28 Lorazepam (Ativan) 1 mg Q4 PRN IV SEIZURES; Start 03/04/17 at 17:30 Ondansetron HCl (Zofran Inj) 4 mg Q6H PRN IV NAUSEA AND/OR VOMITING; Start 03/04 at 17:30 Acetaminophen (Tylenol Tab) 650 mg Q6H PRN PO PAIN LEVEL 1-3 OR FEVER; Start at 17:30 Acetaminophen/ Hydrocodone Bitart ([place] (5/325)) 1 tab Q6H PRN PO PAIN LEVEL 4 -6; Start 03/04/17 at 17:30 Morphine Sulfate (morphine) 2 mg Q4H PRN IV PAIN LEVEL 7-10; Start 03/04/17 at 17:30 Docusate Sodium (Colace) 100 mg Q12H PRN PO CONSTIPATION; Start 03/04/17 at 17: 30 Magnesium Hydroxide (Milk Of Mag) 30 ml DAILY PRN PO CONSTIPATION; Start at 17:30 Bisacodyl (Dulcolax Supp) 10 mg DAILY PRN [place] CONSTIPATION; Start 03/04/17 at 17: 30 Ascorbic Acid (Vitamin C) 500 mg DAILY PO Last administered on 03/06/17 09:16; Admin Dose 500 MG; Start 03/05/17 at 09:00 Aspirin (Halfprin) 81 mg DAILY PO Last administered on 03/06/17 09:17; Admin Dose 81 MG; Start 03/05/17 at 09:00 Atorvastatin Calcium (Lipitor) 80 mg QHS PO Last administered on 03/05/17 20:47 ; Admin Dose 80 MG; Start 03/04/17 at 21:00 Brimonidine Tartrate (Alphagan P 0.1%) 1 drop BID BOTH EYES Last administered on 03/06/17 09:13; Admin Dose 1 DROP; Start 03/04/17 at 21:00 Carvedilol (Coreg) 12.5 mg BID PO Last administered on 03/06/17 09:17; Admin Dose 12.5 MG; Start 03/04/17 at 21:00 Cholecalciferol (Vitamin D) 1,000 unit BID PO Last administered on 03/06/17 09: 17; Admin Dose 1,000 UNIT; Start 03/04/17 at 21:00 Clopidogrel Bisulfate (plaVIX) 75 mg DAILY PO Last administered on 03/06/17 09: 16; Admin Dose 75 MG; Start 03/05/17 at 09:00 Docusate Sodium (Colace) 200 mg QHS PO Last administered on 03/05/17 20:47; Admin Dose 200 MG; Start 03/04/17 at 21:00 Gabapentin (Neurontin) 100 mg BID PO Last administered on 03/06/17 09:17; Admin Dose 100 MG; Start 03/04/17 at 21:00 Linagliptin (Tradjenta) 5 mg DAILY PO Last administered on 03/06/17 09:17; Admin Dose 5 MG; Start 03/05/17 at 09:00 Losartan Potassium (Cozaar) 50 mg BID PO Last administered on 03/06/17 09:16; Admin Dose 50 MG; Start 03/04/17 at 21:00 Multivitamins/ Minerals (Theragran-M) 1 tab DAILY PO Last administered on 09:16; Admin Dose 1 TAB; Start 03/05/17 at 09:00 Pantoprazole (Protonix Tab) 40 mg DAILY PO Last administered on 03/06/17 09:17 ; Admin Dose 40 MG; Start 03/05/17 at 09:00 Polyethylene Glycol (Miralax) 8.5 gm DAILY PRN PO CONSTIPATION; Start 03/04/17 at 18:00 Salmeterol Xinafoate/ Fluticasone (Advair 250/50 Diskus) 1 inh BID INH Last administered on 03/06/17 09:13; Admin Dose 1 INH; Start 03/04/17 at 21:00 Hydralazine HCl 10 mg 10 mg Q8H PRN IV ELEVATED BLOOD PRESSURE; Start 03/04/17 at 18:00 Levetiracetam (Keppra 1,000mg/ 100ml (Pmx)) 100 ml @ 400 mls/hr Q12 IVPB Last administered on 03/06/17 09:15; Admin Dose 400 MLS/HR; Start 03/04/17 at 21:00 Diagnostic Test (Pha) 1 ea 1 ea 02 XX ; Start 03/05/17 at 02:00 Ertapenem/Sodium Chloride (Invanz/NS) 100 ml @ 200 mls/hr Q24H IVPB Last administered on 03/05/17 17:32; Admin Dose 200 MLS/HR; Start 03/04/17 at 18:00; Stop 03/06/17 at 19:00 Miscellaneous Information 1 ea NOTE XX ; Start 03/04/17 at 18:00 Glucose (Glutose) 15 gm Q15M PRN PO DECREASED GLUCOSE; Start 03/04/17 at 18:00 Glucose (Glutose) 22.5 gm Q15M PRN PO DECREASED GLUCOSE; Start 03/04/17 at 18:00 Dextrose (D50w Syringe) 25 ml Q15M PRN IV DECREASED GLUCOSE; Start 03/04/17 at 18:00 Dextrose (D50w Syringe) 50 ml Q15M PRN IV DECREASED GLUCOSE; Start 03/04/17 at 18:00 Glucagon (Glucagen) 1 mg Q15M PRN IM DECREASED GLUCOSE; Start 03/04/17 at 18:00 Glucose 15 gm 15 gm Q15M PRN BUCCAL DECREASED GLUCOSE; Start 03/04/17 at 18:00 Vancomycin HCl (Vancocin) 250 ml @ 125 mls/hr Q24H IVPB Last administered on t 22:11; Admin Dose 125 MLS/HR; Start 03/05/17 at 22:00; Stop 03/06/17 at 23 :59 Procedures Procedures ECG done March 04, 2017 demonstrates sinus rhythm at 80 bpm with frequent PVCs/ bigeminy, QRS 80 ms, nonspecific ST abnormality Omega Chinchilla DO Mar 06, 2017 15:52
--- NOTE | 2017-03-06 15:57 | PN ---
Date/Time of Note Date/Time of Note DATE: 03/06/17 TIME: 15:32 Assessment/Plan VTE Prophylaxis VTE Prophylaxis Intervention: SCD's Lines/Catheters IV Catheter Type (from Nrsg): PICC Line Central line still needed: Yes (For IV access) Assessment/Plan Assessment/Plan 76-year-old female with: 1. New onset seizures: Patient has been witnessed in the emergency department to have partial complex seizures and also did progress to an episode of grand mal seizure at the [facility] facility. CAT scan of the head with no acute intracranial pathology. MRI brain pending. Continue Keppra 1000 mg IV twice daily, Ativan as needed for seizures. Appreciate recommendations from Dr. Ortega EEG pending 2. Pneumonia or bronchopneumonia, healthcare associated, We will continue Imipenem and Vancomycin to complete her total of 10 day course of antibiotic treatment which would be today. Continue nebulizer treatment as needed, incentive spirometer, cough suppressant as needed. 3. 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 4. Peripheral neuropathy: Patient has been on gabapentin 100 mg p.o. twice daily which will be continued for now 5. Diabetes mellitus: Continue Tradjenta, sliding scale insulin and diabetic diet 6. Hypertension: Better controlled blood pressure, continue current medication and hydralazine as needed. Hypertensive episodes that the patient had so far seemed to be related to active seizures actually. 7. Hyperlipidemia: Continue statin therapy 8. COPD per history: Continue nebulizer treatments and Advair, also treating underlying bronchopneumonia 9. Chronic anemia: Stable H/H 10. Chronic kidney disease: Stable renal function 11. Left hip pain: Check x-ray left hip. 12. Short episode of NSVT, 5 beats, Dr. Renée ward is aware, magnesium repleted , Coreg dose adjusted, continue to monitor. Prophylaxis: SCDs to lower extremities for DVT prophylaxis, Protonix for GI prophylaxis Disposition: Monitor on telemetry, IV Keppra and as needed Ativan, appreciate neurology recommendations, EEG and MRI pending. Subjective 24 Hr Interval Summary Free Text/Dictation Patient complains of left hip pain and some increased weakness on the left side. She is on room air, no fevers, no chills. Patient with episode of 5 beats of nonsustained V. tach, appreciate cardiology evaluation. Had a discussion with pharmacy this morning, there was concern that carbapenem may be lowering her seizure threshold, patient as of today has been on the antibiotics for the past 10 days therefore we will discontinue antibiotics as of today and continue to monitor Exam/Review of Systems Vital Signs Vitals Vital Signs Date Time Temp Pulse Resp B/P Pulse Ox O2 Delivery O2 Flow Rate FiO2 03/06/17 15:12 98.0 70 16 154/55 98 03/06/17 08:30 Nasal Cannula 2.0 Intake and Output 03/05/17 03/05/17 03/06/17 15:00 23:00 07:00 Intake Total 100 ml 1300 ml 1665 ml Balance 100 ml 1300 ml 1665 ml Exam Constitutional: alert, oriented, other (Left hemiparesis), well developed Respiratory: clear to auscultation, normal air movement Cardiovascular: nl pulses, regular rate and rhythm Gastrointestinal: non-tender, soft Musculoskeletal: nl extremities to inspection Extremities: normal pulses, other (No edema, clubbing or cyanosis) Neurological: [employer] II-XII intact, focal weakness (Left hemiparesis), nl mental status, nl speech Results Result Diagram: 03/06/17 0602 03/06/17 0540 Results 24 hrs Laboratory Tests Test 03/05/17 17:30 03/05/17 22:17 03/06/17 05:40 03/06/17 06:02 Bedside Glucose 112 125 Sodium Level 143 Potassium Level 4.1 Chloride Level 107 Carbon Dioxide Level 25 Anion Gap 15 Blood Urea Nitrogen 17 Creatinine 0.86 Glucose Level 94 Calcium Level 8.2 L White Blood Count 6.6 Red Blood Count 3.17 L Hemoglobin 9.8 L Hematocrit 30.1 L Mean Corpuscular Volume 95.0 Mean Corpuscular Hemoglobin 30.9 Mean Corpuscular Hemoglobin Concent 32.6 Red Cell Distribution Width 12.9 Platelet Count 318 Mean Platelet Volume 10.4 Neutrophils % 74.0 Lymphocytes % 15.3 Monocytes % 3.9 Eosinophils % 5.9 Basophils % 0.6 Nucleated Red Blood Cells % 0.0 Neutrophils # 4.9 Lymphocytes # 1.0 Monocytes # 0.3 Eosinophils # 0.4 Basophils # 0.0 Nucleated Red Blood Cells # 0.0 Test 03/06/17 06:28 03/06/17 08:00 03/06/17 12:39 Phosphorus Level 4.0 Magnesium Level 1.8 Bedside Glucose 98 142 Medications Medications Current Medications Sodium Chloride (NS) 1,000 ml @ 100 mls/hr Q10H IV Last administered on 01:59; Admin Dose 100 MLS/HR; Start 03/04/17 at 17:28 Lorazepam (Ativan) 1 mg Q4 PRN IV SEIZURES; Start 03/04/17 at 17:30 Ondansetron HCl (Zofran Inj) 4 mg Q6H PRN IV NAUSEA AND/OR VOMITING; Start 03/04 at 17:30 Acetaminophen (Tylenol Tab) 650 mg Q6H PRN PO PAIN LEVEL 1-3 OR FEVER; Start at 17:30 Acetaminophen/ Hydrocodone Bitart ([place] (5/325)) 1 tab Q6H PRN PO PAIN LEVEL 4 -6; Start 03/04/17 at 17:30 Morphine Sulfate (morphine) 2 mg Q4H PRN IV PAIN LEVEL 7-10; Start 03/04/17 at 17:30 Docusate Sodium (Colace) 100 mg Q12H PRN PO CONSTIPATION; Start 03/04/17 at 17: 30 Magnesium Hydroxide (Milk Of Mag) 30 ml DAILY PRN PO CONSTIPATION; Start at 17:30 Bisacodyl (Dulcolax Supp) 10 mg DAILY PRN [place] CONSTIPATION; Start 03/04/17 at 17: 30 Ascorbic Acid (Vitamin C) 500 mg DAILY PO Last administered on 03/06/17 09:16; Admin Dose 500 MG; Start 03/05/17 at 09:00 Aspirin (Halfprin) 81 mg DAILY PO Last administered on 03/06/17 09:17; Admin Dose 81 MG; Start 03/05/17 at 09:00 Atorvastatin Calcium (Lipitor) 80 mg QHS PO Last administered on 03/05/17 20:47 ; Admin Dose 80 MG; Start 03/04/17 at 21:00 Brimonidine Tartrate (Alphagan P 0.1%) 1 drop BID BOTH EYES Last administered on 03/06/17 09:13; Admin Dose 1 DROP; Start 03/04/17 at 21:00 Carvedilol (Coreg) 12.5 mg BID PO Last administered on 03/06/17 09:17; Admin Dose 12.5 MG; Start 03/04/17 at 21:00 Cholecalciferol (Vitamin D) 1,000 unit BID PO Last administered on 03/06/17 09: 17; Admin Dose 1,000 UNIT; Start 03/04/17 at 21:00 Clopidogrel Bisulfate (plaVIX) 75 mg DAILY PO Last administered on 03/06/17 09: 16; Admin Dose 75 MG; Start 03/05/17 at 09:00 Docusate Sodium (Colace) 200 mg QHS PO Last administered on 03/05/17 20:47; Admin Dose 200 MG; Start 03/04/17 at 21:00 Gabapentin (Neurontin) 100 mg BID PO Last administered on 03/06/17 09:17; Admin Dose 100 MG; Start 03/04/17 at 21:00 Linagliptin (Tradjenta) 5 mg DAILY PO Last administered on 03/06/17 09:17; Admin Dose 5 MG; Start 03/05/17 at 09:00 Losartan Potassium (Cozaar) 50 mg BID PO Last administered on 03/06/17 09:16; Admin Dose 50 MG; Start 03/04/17 at 21:00 Multivitamins/ Minerals (Theragran-M) 1 tab DAILY PO Last administered on 09:16; Admin Dose 1 TAB; Start 03/05/17 at 09:00 Pantoprazole (Protonix Tab) 40 mg DAILY PO Last administered on 03/06/17 09:17 ; Admin Dose 40 MG; Start 03/05/17 at 09:00 Polyethylene Glycol (Miralax) 8.5 gm DAILY PRN PO CONSTIPATION; Start 03/04/17 at 18:00 Salmeterol Xinafoate/ Fluticasone (Advair 250/50 Diskus) 1 inh BID INH Last administered on 03/06/17 09:13; Admin Dose 1 INH; Start 03/04/17 at 21:00 Hydralazine HCl 10 mg 10 mg Q8H PRN IV ELEVATED BLOOD PRESSURE; Start 03/04/17 at 18:00 Levetiracetam (Keppra 1,000mg/ 100ml (Pmx)) 100 ml @ 400 mls/hr Q12 IVPB Last administered on 03/06/17 09:15; Admin Dose 400 MLS/HR; Start 03/04/17 at 21:00 Diagnostic Test (Pha) 1 ea 1 ea 02 XX ; Start 03/05/17 at 02:00 Ertapenem/Sodium Chloride (Invanz/NS) 100 ml @ 200 mls/hr Q24H IVPB Last administered on 03/05/17 17:32; Admin Dose 200 MLS/HR; Start 03/04/17 at 18:00; Stop 03/06/17 at 19:00 Miscellaneous Information 1 ea NOTE XX ; Start 03/04/17 at 18:00 Glucose (Glutose) 15 gm Q15M PRN PO DECREASED GLUCOSE; Start 03/04/17 at 18:00 Glucose (Glutose) 22.5 gm Q15M PRN PO DECREASED GLUCOSE; Start 03/04/17 at 18:00 Dextrose (D50w Syringe) 25 ml Q15M PRN IV DECREASED GLUCOSE; Start 03/04/17 at 18:00 Dextrose (D50w Syringe) 50 ml Q15M PRN IV DECREASED GLUCOSE; Start 03/04/17 at 18:00 Glucagon (Glucagen) 1 mg Q15M PRN IM DECREASED GLUCOSE; Start 03/04/17 at 18:00 Glucose 15 gm 15 gm Q15M PRN BUCCAL DECREASED GLUCOSE; Start 03/04/17 at 18:00 Vancomycin HCl (Vancocin) 250 ml @ 125 mls/hr Q24H IVPB Last administered on 22:11; Admin Dose 125 MLS/HR; Start 03/05/17 at 22:00; Stop 03/06/17 at 23 :59 DARRELL MARQUIS Mar 06, 2017 15:43
--- NOTE | 2017-03-06 17:14 | RADRPT ---
PROCEDURE: XR Left Hip. CLINICAL INDICATION: Left hip pain. TECHNIQUE: Two views. Frontal and lateral. COMPARISON: No prior studies are available for comparison. FINDINGS: There is no fracture or dislocation. The soft tissues are normal. Articular surfaces are intact. There is no lytic or blastic lesion. There is no radiopaque foreign body. IMPRESSION: 1. Normal images of the left hip. RPTAT: QQ .Gurjit Amaya MD, MD Date Time Electronically viewed and signed by .Gurjit Amaya MD, MD on 03/06/2017 17:13 .R/
--- NOTE | 2017-03-06 17:39 | RADRPT ---
PROCEDURE: MRI Brain without contrast. CLINICAL INDICATION: Acute complex partial seizure TECHNIQUE: Multiplanar MRI of the brain without contrast was performed on a 3.0 T scanner with the following sequences obtained: T1-weighted, T2-weighted/FLAIR, diffusion weighted (with ADC map), GR E. COMPARISON: CT brain 03/04/2017, MRI brain 01/07/2017 , MRA brain 01/08/2017, CT angiogram brain FINDINGS: Redemonstrated is an area of encephalomalacia with adjacent gliosis and associated susceptibility co nsistent with chronic blood products in the right frontal - parietal region compatible with a chroni c infarct, along with a subtle small chronic infarct in the right insula with adjacent gliosis in th e sub insular region, within the MCA territory. Also identified is a small chronic lacunar infarct in the left paramidline nina. No acute/recent ischemic infarction or intracranial hemorrhage / blood degradation products are iden tified. No extra-axial fluid collection is seen. There is no mass effect. No midline shift is identified. The ventricles and sulci are mildly enlarged, compatible with generalized volume loss. Additional mild to moderate areas of increased T2 / FLAIR signal intensity are present in the perive ntricular and deep white matter, nonspecific but likely related to chronic small vessel ischemic dale nges. Small flow voids are visualized in the right cerebellar hemisphere most consistent with a dev elopmental venous anomaly. Noted is absence of the normal flow void in the intracranial left vertebral artery correlating with severe stenosis noted on prior MRA. There is partial right mastoid air cell opacification. IMPRESSION: 1. No evidence of acute intracranial pathology. 2. Chronic right middle cerebral artery territory infarcts described above. 3. Chronic pontine lacunar infarct. 4. Mild generalized volume loss, with mild to moderate chronic small vessel ischemic changes. 5. 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 6. Absence of normal flow void in the intracranial left vertebral artery correlating with known und erlying severe stenosis. RPTAT: VV .Kian Liu MD, Date Time Electronically viewed and signed by .Kian Liu MD, on 03/06/2017 17:39 .O/
[2017-03-06] MEDS: ERTAPENEM SODIUM 1 GM in SOD CHLORIDE 0.9% 100 ML IVPB SCH (18:02)
[2017-03-06] MEDS: hydrALAzine 20 MG INJ IV PRN (19:11)
[2017-03-06] MEDS: DOCUSATE SODIUM 100 MG CAP PO SCH (20:28)
[2017-03-06] MEDS: ATORVASTATIN 80 MG TAB PO SCH (20:28)
[2017-03-06] MEDS ORDERED: FUROSEMIDE 20 MG TAB PO ONE (20:30)
[2017-03-06] MEDS: VANCOMYCIN 1 GM in NS 250 ML IVPB SCH (22:09)
[2017-03-07] VITALS (12 sets, daily range): BP systolic 130–183; BP diastolic 63–75; PULSE 67–81; RESP 18–20
[2017-03-07] MEDS: ACCU-CHEK XX SCH (01:26)
[2017-03-07] MEDS: INSULIN ASPART [NOVOLOG] 3 ML PEN SC SCH ×4 (07:55→20:28)
[2017-03-07 08:15] LABS: CALCIUM 8.6 mg/dl (8.4-10.2); CREATININE 0.82 mg/dl (0.44-1.00); POTASSIUM 3.9 mmol/L (3.5-5.1)
[2017-03-07] MEDS: BRIMONIDINE 0.1% 5 ML OPH BOTH EYES SCH ×2 (08:41→20:29)
[2017-03-07] MEDS: SALMETEROL/FLUTICASONE 250/50 INHA INH SCH ×2 (08:41→20:29)
[2017-03-07] MEDS: LINAGLIPTIN 5 MG TABLET PO SCH (08:50)
[2017-03-07] MEDS: ASCORBIC ACID 500 MG TAB PO SCH (08:50)
[2017-03-07] MEDS: CHOLECALCIFEROL 1,000 UNIT TAB PO SCH ×2 (08:50→20:26)
[2017-03-07] MEDS: GABAPENTIN 100 MG CAP PO SCH (08:50)
[2017-03-07] MEDS: CLOPIDOGREL 75 MG TAB PO SCH (08:50)
[2017-03-07] MEDS: MULTIVITAMINS/MINERALS TAB PO SCH (08:50)
[2017-03-07] MEDS: PANTOPRAZOLE (EC) 40 MG TAB PO SCH (08:50)
[2017-03-07] MEDS: HYDROCHLOROTHIAZIDE 25 MG TAB PO SCH (08:51)
[2017-03-07] MEDS: LOSARTAN 50 MG TAB PO SCH ×2 (08:52→20:26)
[2017-03-07] MEDS: ASPIRIN (EC) 81 MG TAB PO SCH (08:52)
[2017-03-07] MEDS: LEVETIRACETAM 1000 MG (PMX) 100 ML IVPB SCH (08:53)
--- NOTE | 2017-03-07 10:01 | PN ---
Date/Time of Note Date/Time of Note DATE: 03/07/17 TIME: 09:38 Assessment/Plan VTE Prophylaxis VTE Prophylaxis Intervention: SCD's Lines/Catheters IV Catheter Type (from Nrsg): PICC Line Central line still needed: Yes (For IV access, could be discontinued at discharge) Urinary Cath still in place: No Assessment/Plan Assessment/Plan 76-year-old female with: 1. New onset seizures: Patient has been witnessed in the emergency department to have partial complex seizures and also did progress to an episode of grand mal seizure at the nursing home facility. CAT scan of the head and subsequent MRI with no acute intracranial pathology. Continue Keppra, I will discuss with neurology if okay to decrease to 750 mg p.o. twice daily, Ativan as needed for seizures. Follow-up recommendations from Dr. Ortega today. EEG with no seizure activity, this is after patient was started on Keppra however. 2. Pneumonia or bronchopneumonia, healthcare associated, status post 10 days of imipenem and Vancomycin completed as of yesterday 03/06 Monitor of antibiotics. Continue nebulizer treatment as needed, incentive spirometer, cough suppressant as needed. 3. 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 4. Peripheral neuropathy: Patient has been on gabapentin 100 mg p.o. twice daily which will be continued for now, can be titrated up as needed 3 times a day 5. Diabetes mellitus: Continue Tradjenta, sliding scale insulin and diabetic diet 6. Hypertension: Better controlled blood pressure, continue current medication and hydralazine as needed. Hypertensive episodes that the patient had so far seemed to be related to active seizures actually. 7. Hyperlipidemia: Continue statin therapy 8. COPD per history: Continue nebulizer treatments and Advair, also treating underlying bronchopneumonia 9. Chronic anemia: Stable H/H 10. Chronic kidney disease: Stable renal function 11. Left hip pain: X-ray left hip within normal. 12. Episode of 5 beats NSVT 03/06, no recurrence, patient noted to have bigeminies, cardiology following, on carvedilol. Prophylaxis: SCDs to lower extremities for DVT prophylaxis, Protonix for GI prophylaxis Disposition: Monitor on telemetry, Keppra and as needed Ativan, follow-up neurology and cardiology recommendations, PT jamie, hopefully discharge planning this weekend. Subjective 24 Hr Interval Summary Free Text/Dictation Patient complains of lethargy generalized weakness this morning, she has been complaining of it yesterday to, it may be secondary to Keppra especially when patient also on Neurontin. I have discontinued the Neurontin since this was being used for her neuropathic pain and she is already on [place] as needed pain. I will discuss with neurology if okay to decrease Keppra to 750 p.o. twice daily. Continue physical therapy. Exam/Review of Systems Vital Signs Vitals Vital Signs Date Time Temp Pulse Resp B/P Pulse Ox O2 Delivery O2 Flow Rate FiO2 03/07/17 08:24 Nasal Cannula 1.0 03/07/17 08:24 70 03/07/17 07:30 98.1 18 183/74 98 Intake and Output 03/06/17 03/06/17 03/07/17 15:00 23:00 07:00 Intake Total 100 ml 300 ml 500 ml Balance 100 ml 300 ml 500 ml Exam Constitutional: alert, oriented, other (Left hemiparesis) Respiratory: clear to auscultation, normal air movement Cardiovascular: nl pulses, regular rate and rhythm Gastrointestinal: non-tender, soft Musculoskeletal: nl extremities to inspection Extremities: normal pulses, other (No edema, clubbing or cyanosis) Neurological: C CONSULTANT II-XII intact, focal weakness (Left hemiparesis), nl mental status, nl speech Results Result Diagram: 03/06/17 0602 03/07/17 0633 Results 24 hrs Laboratory Tests Test 03/06/17 12:39 03/06/17 18:01 03/06/17 20:26 03/07/17 06:33 Bedside Glucose 142 112 115 Sodium Level 142 Potassium Level 3.9 Chloride Level 103 Carbon Dioxide Level 27 Anion Gap 16 Blood Urea Nitrogen 16 Creatinine 0.82 Glucose Level 95 Calcium Level 8.6 Magnesium Level 2.0 Test 03/07/17 08:07 Bedside Glucose 96 Medications Medications Current Medications Lorazepam (Ativan) 1 mg Q4 PRN IV SEIZURES; Start 03/04/17 at 17:30 Ondansetron HCl (Zofran Inj) 4 mg Q6H PRN IV NAUSEA AND/OR VOMITING; Start 03/04 at 17:30 Acetaminophen (Tylenol Tab) 650 mg Q6H PRN PO PAIN LEVEL 1-3 OR FEVER; Start at 17:30 Acetaminophen/ Hydrocodone Bitart ([place] (5/325)) 1 tab Q6H PRN PO PAIN LEVEL 4 -6; Start 03/04/17 at 17:30 Morphine Sulfate (morphine) 2 mg Q4H PRN IV PAIN LEVEL 7-10 Last administered on 03/06/17 19:12; Admin Dose 2 MG; Start 03/04/17 at 17:30 Docusate Sodium (Colace) 100 mg Q12H PRN PO CONSTIPATION; Start 03/04/17 at 17: 30 Magnesium Hydroxide (Milk Of Mag) 30 ml DAILY PRN PO CONSTIPATION; Start at 17:30 Bisacodyl (Dulcolax Supp) 10 mg DAILY PRN [place] CONSTIPATION; Start 03/04/17 at 17: 30 Ascorbic Acid (Vitamin C) 500 mg DAILY PO Last administered on 03/07/17 08:50; Admin Dose 500 MG; Start 03/05/17 at 09:00 Aspirin (Halfprin) 81 mg DAILY PO Last administered on 03/07/17 08:52; Admin Dose 81 MG; Start 03/05/17 at 09:00 Atorvastatin Calcium (Lipitor) 80 mg QHS PO Last administered on 03/06/17 20:28 ; Admin Dose 80 MG; Start 03/04/17 at 21:00 Brimonidine Tartrate (Alphagan P 0.1%) 1 drop BID BOTH EYES Last administered on 03/07/17 08:41; Admin Dose 1 DROP; Start 03/04/17 at 21:00 Cholecalciferol (Vitamin D) 1,000 unit BID PO Last administered on 03/07/17 08: 50; Admin Dose 1,000 UNIT; Start 03/04/17 at 21:00 Clopidogrel Bisulfate (plaVIX) 75 mg DAILY PO Last administered on 03/07/17 08: 50; Admin Dose 75 MG; Start 03/05/17 at 09:00 Docusate Sodium (Colace) 200 mg QHS PO Last administered on 03/06/17 20:28; Admin Dose 200 MG; Start 03/04/17 at 21:00 Gabapentin (Neurontin) 100 mg BID PO Last administered on 03/07/17 08:50; Admin Dose 100 MG; Start 03/04/17 at 21:00 Linagliptin (Tradjenta) 5 mg DAILY PO Last administered on 03/07/17 08:50; Admin Dose 5 MG; Start 03/05/17 at 09:00 Losartan Potassium (Cozaar) 50 mg BID PO Last administered on 03/07/17 08:52; Admin Dose 50 MG; Start 03/04/17 at 21:00 Multivitamins/ Minerals (Theragran-M) 1 tab DAILY PO Last administered on 08:50; Admin Dose 1 TAB; Start 03/05/17 at 09:00 Pantoprazole (Protonix Tab) 40 mg DAILY PO Last administered on 03/07/17 08:50 ; Admin Dose 40 MG; Start 03/05/17 at 09:00 Polyethylene Glycol (Miralax) 8.5 gm DAILY PRN PO CONSTIPATION; Start 03/04/17 at 18:00 Salmeterol Xinafoate/ Fluticasone (Advair 250/50 Diskus) 1 inh BID INH Last administered on 03/07/17 08:41; Admin Dose 1 INH; Start 03/04/17 at 21:00 Hydralazine HCl (Apresoline) 10 mg Q8H PRN IV ELEVATED BLOOD PRESSURE Last administered on 03/06/17 19:11; Admin Dose 10 MG; Start 03/04/17 at 18:00 Diagnostic Test (Pha) (Accu-Chek) 1 ea 02 XX ; Start 03/05/17 at 02:00 Miscellaneous Information 1 ea NOTE XX ; Start 03/04/17 at 18:00 Glucose (Glutose) 15 gm Q15M PRN PO DECREASED GLUCOSE; Start 03/04/17 at 18:00 Glucose (Glutose) 22.5 gm Q15M PRN PO DECREASED GLUCOSE; Start 03/04/17 at 18:00 Dextrose (D50w Syringe) 25 ml Q15M PRN IV DECREASED GLUCOSE; Start 03/04/17 at 18:00 Dextrose (D50w Syringe) 50 ml Q15M PRN IV DECREASED GLUCOSE; Start 03/04/17 at 18:00 Glucagon (Glucagen) 1 mg Q15M PRN IM DECREASED GLUCOSE; Start 03/04/17 at 18:00 Glucose (Glutose) 15 gm Q15M PRN BUCCAL DECREASED GLUCOSE; Start 03/04/17 at 18: 00 Carvedilol (Coreg) 6.25 mg BID PO Last administered on 03/07/17 08:53; Admin Dose 6.25 MG; Start 03/06/17 at 21:00 Hydrochlorothiazide (Hydrochlorothiazide) 6.25 mg DAILY PO Last administered on 03/07/17 08:51; Admin Dose 6.25 MG; Start 03/07/17 at 09:00 Procedures Procedures DATE OF PROCEDURE: 03/05/2017 INDICATION: This is a 76-year-old woman who was admitted with new onset seizure. CURRENT MEDICATIONS: 1. Neurontin. 2. Keppra. DESCRIPTION OF PROCEDURE: Utilizing a 16-channel EEG machine, cap scalp electrodes were applied in accordance with 10-20 system. Scalp montages were obtained. Electrical impulses were measured and reported. During the resting state, posterior dominant rhythm for about 8-9 Hertz were seen bi-hemispherically. Photic stimulation had a good response. Hyperventilation was not performed. There was no focal lateralizing or epileptiform discharges identified. INTERPRETATION: This is a normal EEG. A normal EEG does not exclude seizure disorder. Please correlate clinically. DARRELL MARQUIS Mar 07, 2017 09:48
--- NOTE | 2017-03-07 11:35 | CONS ---
Date/Time of Note Date/Time of Note DATE: 03/07/17 TIME: 11:31 Consult Date/Type/Reason Admit Date/Time Mar 04, 2017 at 16:44 Initial Consult Date 03/05/17 Type of Consultation: Neurology Reason for Consultation eval for seizures Ordering Provider: DARRELL MARQUIS Subjective no seizure activity more lethargic today with Keppra 1 g BID Objective Vital Signs Date Time Temp Pulse Resp B/P Pulse Ox O2 Delivery O2 Flow Rate FiO2 03/07/17 08:24 Nasal Cannula 1.0 03/07/17 08:24 70 03/07/17 07:30 98.1 18 183/74 98 Intake and Output 03/06/17 03/06/17 03/07/17 15:00 23:00 07:00 Intake Total 100 ml 300 ml 500 ml Balance 100 ml 300 ml 500 ml Exam awake and alert oriented x 2 more drowsy today she awakens on arousal able to recognize me, hospital CN: MARIALUISA left gaze preference, left facial droop Motor: left arm lifts anti-gravity, left leg only lifts for a few seconds with drift right arm and leg intact Results/Medications Result Diagram: 03/06/17 0602 03/07/17 0633 Results 24 hrs Laboratory Tests Test 03/06/17 12:39 03/06/17 18:01 03/06/17 20:26 03/07/17 06:33 Bedside Glucose 142 112 115 Sodium Level 142 Potassium Level 3.9 Chloride Level 103 Carbon Dioxide Level 27 Anion Gap 16 Blood Urea Nitrogen 16 Creatinine 0.82 Glucose Level 95 Calcium Level 8.6 Magnesium Level 2.0 Test 03/07/17 08:07 Bedside Glucose 96 Medications Current Medications Lorazepam (Ativan) 1 mg Q4 PRN IV SEIZURES; Start 03/04/17 at 17:30 Ondansetron HCl (Zofran Inj) 4 mg Q6H PRN IV NAUSEA AND/OR VOMITING; Start 03/04 at 17:30 Acetaminophen (Tylenol Tab) 650 mg Q6H PRN PO PAIN LEVEL 1-3 OR FEVER; Start at 17:30 Acetaminophen/ Hydrocodone Bitart ([place] (5/325)) 1 tab Q6H PRN PO PAIN LEVEL 4 -6; Start 03/04/17 at 17:30 Morphine Sulfate (morphine) 2 mg Q4H PRN IV PAIN LEVEL 7-10 Last administered on 03/06/17 19:12; Admin Dose 2 MG; Start 03/04/17 at 17:30 Docusate Sodium (Colace) 100 mg Q12H PRN PO CONSTIPATION; Start 03/04/17 at 17: 30 Magnesium Hydroxide (Milk Of Mag) 30 ml DAILY PRN PO CONSTIPATION; Start at 17:30 Bisacodyl (Dulcolax Supp) 10 mg DAILY PRN [place] CONSTIPATION; Start 03/04/17 at 17: 30 Ascorbic Acid (Vitamin C) 500 mg DAILY PO Last administered on 03/07/17 08:50; Admin Dose 500 MG; Start 03/05/17 at 09:00 Aspirin (Halfprin) 81 mg DAILY PO Last administered on 03/07/17 08:52; Admin Dose 81 MG; Start 03/05/17 at 09:00 Atorvastatin Calcium (Lipitor) 80 mg QHS PO Last administered on 03/06/17 20:28 ; Admin Dose 80 MG; Start 03/04/17 at 21:00 Brimonidine Tartrate (Alphagan P 0.1%) 1 drop BID BOTH EYES Last administered on 03/07/17 08:41; Admin Dose 1 DROP; Start 03/04/17 at 21:00 Cholecalciferol (Vitamin D) 1,000 unit BID PO Last administered on 03/07/17 08: 50; Admin Dose 1,000 UNIT; Start 03/04/17 at 21:00 Clopidogrel Bisulfate (plaVIX) 75 mg DAILY PO Last administered on 03/07/17 08: 50; Admin Dose 75 MG; Start 03/05/17 at 09:00 Docusate Sodium (Colace) 200 mg QHS PO Last administered on 03/06/17 20:28; Admin Dose 200 MG; Start 03/04/17 at 21:00 Linagliptin (Tradjenta) 5 mg DAILY PO Last administered on 03/07/17 08:50; Admin Dose 5 MG; Start 03/05/17 at 09:00 Losartan Potassium (Cozaar) 50 mg BID PO Last administered on 03/07/17 08:52; Admin Dose 50 MG; Start 03/04/17 at 21:00 Multivitamins/ Minerals (Theragran-M) 1 tab DAILY PO Last administered on 08:50; Admin Dose 1 TAB; Start 03/05/17 at 09:00 Pantoprazole (Protonix Tab) 40 mg DAILY PO Last administered on 03/07/17 08:50 ; Admin Dose 40 MG; Start 03/05/17 at 09:00 Polyethylene Glycol (Miralax) 8.5 gm DAILY PRN PO CONSTIPATION; Start 03/04/17 at 18:00 Salmeterol Xinafoate/ Fluticasone (Advair 250/50 Diskus) 1 inh BID INH Last administered on 03/07/17 08:41; Admin Dose 1 INH; Start 03/04/17 at 21:00 Hydralazine HCl (Apresoline) 10 mg Q8H PRN IV ELEVATED BLOOD PRESSURE Last administered on 03/06/17 19:11; Admin Dose 10 MG; Start 03/04/17 at 18:00 Diagnostic Test (Pha) (Accu-Chek) 1 ea 02 XX ; Start 03/05/17 at 02:00 Miscellaneous Information 1 ea NOTE XX ; Start 03/04/17 at 18:00 Glucose (Glutose) 15 gm Q15M PRN PO DECREASED GLUCOSE; Start 03/04/17 at 18:00 Glucose (Glutose) 22.5 gm Q15M PRN PO DECREASED GLUCOSE; Start 03/04/17 at 18:00 Dextrose (D50w Syringe) 25 ml Q15M PRN IV DECREASED GLUCOSE; Start 03/04/17 at 18:00 Dextrose (D50w Syringe) 50 ml Q15M PRN IV DECREASED GLUCOSE; Start 03/04/17 at 18:00 Glucagon (Glucagen) 1 mg Q15M PRN IM DECREASED GLUCOSE; Start 03/04/17 at 18:00 Glucose (Glutose) 15 gm Q15M PRN BUCCAL DECREASED GLUCOSE; Start 03/04/17 at 18: 00 Carvedilol (Coreg) 6.25 mg BID PO Last administered on 03/07/17 08:53; Admin Dose 6.25 MG; Start 03/06/17 at 21:00 Hydrochlorothiazide (Hydrochlorothiazide) 6.25 mg DAILY PO Last administered on 03/07/17 08:51; Admin Dose 6.25 MG; Start 03/07/17 at 09:00 Levetiracetam (Keppra) 1,000 mg BID PO ; Start 03/07/17 at 21:00 Assessment/Plan Chief Complaint/Hosp Course 76 yo female with CHF, prior Right MCA CVA tx with IV tPA mechanism presumably intracranial atherosclerosis recent admission for pontine lacunar type stroke managed on dual antiplatelet therapy admitted with recent pneumonia fevers and new onset partial complex seizures. Reduce Keppra dose to 750 mg BID for increased lethargy MRI Brain shows no acute infarction, chronic Right MCA chronic pontine lacunar stroke, left vert. severe stenosis seizure precautions, ativan 0.1 mg/kg max dose 4 mg for seizure appreciate cardiology follow up medications being adjusted no signs of afib dc planning to SNF Problems: LENNY MELGOZA MD Mar 07, 2017 11:35
--- NOTE | 2017-03-07 12:18 | CONS ---
Date/Time of Note Date/Time of Note DATE: 03/07/17 TIME: 12:16 Assessment/Plan Assessment/Plan Additional Assessment/Plan Newly diagnosed seizure Nonsustained ventricular tachycardia History of CVA Left vertebral artery stenosis Hypertension Cerebral artery disease Diabetes Cardiomyopathy with ejection fraction 40% Paroxysmal atrial tachycardia -Patient with less frequent PVCs seen on telemetry. Maintain potassium above 4.0 and magnesium above 2.0. Started hydrochlorothiazide to assist with blood pressure control given Coreg was decreased as per family's request because of fatigue. Continue ARB. Consultation Date/Type/Reason Admit Date/Time Mar 04, 2017 at 16:44 Initial Consult Date 03/05/17 Type of Consultation: cv Referring Provider: DARRELL MARQUIS 24 HR Interval Summary Free Text/Dictation Patient seen and examined. Family at bedside, concerned patient is more lethargic. Exam/Review of Systems Vital Signs Vitals Vital Signs Date Time Temp Pulse Resp B/P Pulse Ox O2 Delivery O2 Flow Rate FiO2 03/07/17 11:58 98.8 63 18 141/63 97 03/07/17 08:24 Nasal Cannula 1.0 Intake and Output 03/06/17 03/06/17 03/07/17 15:00 23:00 07:00 Intake Total 100 ml 300 ml 500 ml Balance 100 ml 300 ml 500 ml Exam Sleeping but arousable, no apparent distress, following commands Head: normocephalic Respiratory: other (Coarse breath sounds bilaterally, no wheezing) Cardiovascular: other (S1-S2 heard), regular rate and rhythm Gastrointestinal: bowel sounds, non-tender, soft Extremities: edema Results Result Diagram: 03/06/17 0602 03/07/17 0633 Results 24 hrs Laboratory Tests Test 03/06/17 12:39 03/06/17 18:01 03/06/17 20:26 03/07/17 06:33 Bedside Glucose 142 112 115 Sodium Level 142 Potassium Level 3.9 Chloride Level 103 Carbon Dioxide Level 27 Anion Gap 16 Blood Urea Nitrogen 16 Creatinine 0.82 Glucose Level 95 Calcium Level 8.6 Magnesium Level 2.0 Test 03/07/17 08:07 Bedside Glucose 96 Medications Medications Current Medications Lorazepam (Ativan) 1 mg Q4 PRN IV SEIZURES; Start 03/04/17 at 17:30 Ondansetron HCl (Zofran Inj) 4 mg Q6H PRN IV NAUSEA AND/OR VOMITING; Start 03/04 at 17:30 Acetaminophen (Tylenol Tab) 650 mg Q6H PRN PO PAIN LEVEL 1-3 OR FEVER; Start at 17:30 Acetaminophen/ Hydrocodone Bitart ([place] (5/325)) 1 tab Q6H PRN PO PAIN LEVEL 4 -6; Start 03/04/17 at 17:30 Morphine Sulfate (morphine) 2 mg Q4H PRN IV PAIN LEVEL 7-10 Last administered on 03/06/17 19:12; Admin Dose 2 MG; Start 03/04/17 at 17:30 Docusate Sodium (Colace) 100 mg Q12H PRN PO CONSTIPATION; Start 03/04/17 at 17: 30 Magnesium Hydroxide (Milk Of Mag) 30 ml DAILY PRN PO CONSTIPATION; Start at 17:30 Bisacodyl (Dulcolax Supp) 10 mg DAILY PRN [place] CONSTIPATION; Start 03/04/17 at 17: 30 Ascorbic Acid (Vitamin C) 500 mg DAILY PO Last administered on 03/07/17 08:50; Admin Dose 500 MG; Start 03/05/17 at 09:00 Aspirin (Halfprin) 81 mg DAILY PO Last administered on 03/07/17 08:52; Admin Dose 81 MG; Start 03/05/17 at 09:00 Atorvastatin Calcium (Lipitor) 80 mg QHS PO Last administered on 03/06/17 20:28 ; Admin Dose 80 MG; Start 03/04/17 at 21:00 Brimonidine Tartrate (Alphagan P 0.1%) 1 drop BID BOTH EYES Last administered on 03/07/17 08:41; Admin Dose 1 DROP; Start 03/04/17 at 21:00 Cholecalciferol (Vitamin D) 1,000 unit BID PO Last administered on 03/07/17 08: 50; Admin Dose 1,000 UNIT; Start 03/04/17 at 21:00 Clopidogrel Bisulfate (plaVIX) 75 mg DAILY PO Last administered on 03/07/17 08: 50; Admin Dose 75 MG; Start 03/05/17 at 09:00 Docusate Sodium (Colace) 200 mg QHS PO Last administered on 03/06/17 20:28; Admin Dose 200 MG; Start 03/04/17 at 21:00 Linagliptin (Tradjenta) 5 mg DAILY PO Last administered on 03/07/17 08:50; Admin Dose 5 MG; Start 03/05/17 at 09:00 Losartan Potassium (Cozaar) 50 mg BID PO Last administered on 03/07/17 08:52; Admin Dose 50 MG; Start 03/04/17 at 21:00 Multivitamins/ Minerals (Theragran-M) 1 tab DAILY PO Last administered on 08:50; Admin Dose 1 TAB; Start 03/05/17 at 09:00 Pantoprazole (Protonix Tab) 40 mg DAILY PO Last administered on 03/07/17 08:50 ; Admin Dose 40 MG; Start 03/05/17 at 09:00 Polyethylene Glycol (Miralax) 8.5 gm DAILY PRN PO CONSTIPATION; Start 03/04/17 at 18:00 Salmeterol Xinafoate/ Fluticasone (Advair 250/50 Diskus) 1 inh BID INH Last administered on 03/07/17 08:41; Admin Dose 1 INH; Start 03/04/17 at 21:00 Hydralazine HCl (Apresoline) 10 mg Q8H PRN IV ELEVATED BLOOD PRESSURE Last administered on 03/06/17 19:11; Admin Dose 10 MG; Start 03/04/17 at 18:00 Diagnostic Test (Pha) (Accu-Chek) 1 ea 02 XX ; Start 03/05/17 at 02:00 Miscellaneous Information 1 ea NOTE XX ; Start 03/04/17 at 18:00 Glucose (Glutose) 15 gm Q15M PRN PO DECREASED GLUCOSE; Start 03/04/17 at 18:00 Glucose (Glutose) 22.5 gm Q15M PRN PO DECREASED GLUCOSE; Start 03/04/17 at 18:00 Dextrose (D50w Syringe) 25 ml Q15M PRN IV DECREASED GLUCOSE; Start 03/04/17 at 18:00 Dextrose (D50w Syringe) 50 ml Q15M PRN IV DECREASED GLUCOSE; Start 03/04/17 at 18:00 Glucagon (Glucagen) 1 mg Q15M PRN IM DECREASED GLUCOSE; Start 03/04/17 at 18:00 Glucose (Glutose) 15 gm Q15M PRN BUCCAL DECREASED GLUCOSE; Start 03/04/17 at 18: 00 Carvedilol (Coreg) 6.25 mg BID PO Last administered on 03/07/17 08:53; Admin Dose 6.25 MG; Start 03/06/17 at 21:00 Hydrochlorothiazide (Hydrochlorothiazide) 6.25 mg DAILY PO Last administered on 03/07/17 08:51; Admin Dose 6.25 MG; Start 03/07/17 at 09:00 Levetiracetam (Keppra) 750 mg BID PO ; Start 03/07/17 at 21:00 Omega Chinchilla DO Mar 07, 2017 12:18
[2017-03-07] MEDS ORDERED: POTASSIUM CHLORIDE (SR) 10 MEQ TAB PO ONE (12:30)
[2017-03-07] MEDS ORDERED: MAGNESIUM SULFATE 1 GM/D5W 100 ML IVPB ONE (14:00)
[2017-03-07] MEDS: ATORVASTATIN 80 MG TAB PO SCH (20:26)
[2017-03-07] MEDS: LEVETIRACETAM 500 MG TAB PO SCH (20:27)
[2017-03-07] MEDS: DOCUSATE SODIUM 100 MG CAP PO SCH (20:27)
[2017-03-07] MEDS ORDERED: LEVETIRACETAM 500 MG TAB PO SCH (21:00)
[2017-03-08] VITALS (11 sets, daily range): BP systolic 123–170; BP diastolic 54–77; PULSE 72–82; RESP 18–20
[2017-03-08] MEDS: ACCU-CHEK XX SCH (01:10)
[2017-03-08] MEDS: hydrALAzine 20 MG INJ IV PRN (03:29)
[2017-03-08 06:41] LABS: BASOPHIL # 0.1 10^3/ul (0.0-0.1); BASOPHILS % 0.6 % (0.0-2.0); EOSINOPHILS # 0.2 10^3/ul (0.0-0.5); EOSINOPHILS % 2.3 % (0.0-7.0); HEMATOCRIT 33.2 % (37.0-47.0); LYMPHOCYTES # 1.1 10^3/ul (0.8-2.9); LYMPHOCYTES % 10.9 % (15.0-51.0); MEAN CORPUSCULAR HEMOGLOBIN 30.6 pg (29.0-33.0); MEAN CORPUSCULAR HGB CONC 33.1 g/dl (32.0-37.0); MEAN CORPUSCULAR VOLUME 92.5 fl (82.0-101.0); MEAN PLATELET VOLUME 10.7 fl (7.4-10.4); MONOCYTE # 0.3 10^3/ul (0.3-0.9); MONOCYTES % 2.5 % (0.0-11.0); NEUTROPHIL # 8.5 10^3/ul (1.6-7.5); NEUTROPHILS % 83.3 % (39.0-77.0); PLATELET COUNT 343 10^3/UL (140-415); RED BLOOD COUNT 3.59 10^6/ul (4.20-5.40); WHITE BLOOD COUNT 10.2 10^3/ul (4.8-10.8)
[2017-03-08 07:09] LABS: CALCIUM 9.2 mg/dl (8.4-10.2); CREATININE 0.86 mg/dl (0.44-1.00)
[2017-03-08 07:48] LABS: POTASSIUM 3.7 mmol/L (3.5-5.1)
[2017-03-08] MEDS: INSULIN ASPART [NOVOLOG] 3 ML PEN SC SCH ×3 (07:55→17:01)
[2017-03-08] MEDS: BRIMONIDINE 0.1% 5 ML OPH BOTH EYES SCH (08:27)
[2017-03-08] MEDS: SALMETEROL/FLUTICASONE 250/50 INHA INH SCH (08:27)
[2017-03-08] MEDS: MULTIVITAMINS/MINERALS TAB PO SCH (08:27)
[2017-03-08] MEDS: LINAGLIPTIN 5 MG TABLET PO SCH (08:27)
[2017-03-08] MEDS: LOSARTAN 50 MG TAB PO SCH (08:27)
[2017-03-08] MEDS: CLOPIDOGREL 75 MG TAB PO SCH (08:28)
[2017-03-08] MEDS: LEVETIRACETAM 500 MG TAB PO SCH (08:28)
[2017-03-08] MEDS: CHOLECALCIFEROL 1,000 UNIT TAB PO SCH (08:28)
[2017-03-08] MEDS: ASPIRIN (EC) 81 MG TAB PO SCH (08:28)
[2017-03-08] MEDS: ASCORBIC ACID 500 MG TAB PO SCH (08:28)
[2017-03-08] MEDS: PANTOPRAZOLE (EC) 40 MG TAB PO SCH (08:28)
[2017-03-08] MEDS: HYDROCHLOROTHIAZIDE 25 MG TAB PO SCH (08:29)
[2017-03-08] MEDS ORDERED: MAGNESIUM OXIDE 400 MG TAB PO SCH (09:00)
[2017-03-08] MEDS ORDERED: AMLODIPINE 10 MG TAB PO SCH (10:00)
[2017-03-08] MEDS ORDERED: FLUTICASONE 0.05% 16 GM NAS SPRAY NASAL SCH (10:00)
--- NOTE | 2017-03-08 11:17 | DS ---
DATE OF ADMISSION: 03/04/2017 DATE OF DISCHARGE: 03/08/2017 DISCHARGE DIAGNOSES: 1. Complex partial seizures with episodes of generalized grand mal seizures status post initiation of Keppra therapy. 2. Old stroke with left hemiparesis. 3. Healthcare associated pneumonia status post 10 days IV antibiotics. 4. Nonsustained ventricular tachycardia. 5. Cardiomyopathy with ejection fraction 40 percent. 6. Diabetes. 7. Hypertension. HOSPITAL COURSE: The patient was admitted to [facility] after experiencing seizure-like activity at her care home facility. She was admitted to the hospital and seen in Neurologic consultation by Dr. Ortega. She was commenced on Keppra therapy and increased to 1000 mg b.i.d.; however, because of some lethargy associated with this her dose is down titrated to 750 mg b.i.d. at this point in time. She has been seizure free since her arrival here in the hospital. She underwent MRI of the brain which reveals old strokes, but no structural lesion. During her time here in the hospital she was noted to have episodes of paroxysmal atrial tachycardia. She was seen in Cardiology consultation by Dr. Omega Chinchilla, echocardiogram reveals a cardiomyopathy with an ejection fraction of 40 percent. The patient was treated with medical therapy including Coreg and losartan. Her blood pressure is controlled and she should follow up with Dr. Chinchilla at a convenient moment. At this point in time the patient is improved and deemed stable for discharge back to care home facility to resume physical and occupational therapy. DISCHARGE MEDICATIONS: 1. Tylenol 650 mg every 6 hours as needed. 2. Vitamin C 500 mg daily. 3. Aspirin 81 mg daily. 4. Lipitor 80 mg daily. 5. Dulcolax 10 mg daily as needed. 6. Alphagan eye drops. 7. Coreg 6.25 mg b.i.d. 8. Vitamin D 1000 units twice a day. 9. Plavix 75 mg daily. 10. Insulin sliding scale and hypoglycemia treatment. 11. Hydrochlorothiazide 25 mg daily. 12. [place] 5/325 1 to 2 every 6 hours as needed, 30 tablets dispensed. 13. Xopenex nebulizer. 14. Keppra 750 mg b.i.d. 15. Linagliptin 5 mg daily. 16. Losartan 50 mg b.i.d. 17. Maalox p.r.n. 18. Magnesium oxide 400 mg daily. 19. Multivitamin. 20. Protonix 40 mg daily. 21. MiraLAX p.r.n. 22. Advair 1 puff b.i.d. 23. Colace 100 mg b.i.d. 24. Flonase 1 spray in each nare b.i.d. 25. Norvasc 10 mg daily. 26. Hydralazine 25 mg every 6 hours as needed. DISCHARGE DISPOSITION: To care home facility. DISCHARGE ACTIVITY: Increase in physical activity as per the recommendation of physical and occupational therapy. DISCHARGE DIET: A 2-g sodium diet is recommended. DISCHARGE FOLLOW-UP: With [facility] nursing facility provider and with Dr. Chinchilla in [address] Ortega next available appointment. SUGGESTIONS FOLLOW-UP CARE: 1. Ensure the PICC line is removed prior to arrival at care home facility. 2. Monitor electrolytes to maintain potassium and magnesium above 4 and 2 respectively. Dictated By: Gómez Ray MD /farhat/connie /Document#: [id number]
== END 2017-03-08 17:38 | DRG 100 ==
LOC: E/R 15:15 → TEL 16:44
PROVIDERS: ADMIT Internal Medicine; ATTEND Internal Medicine
DX: G40.209 Localization-related (focal) (partial) symptomatic epilepsy and epileptic syndromes with complex partial seizures, not intractable, without status epilepticus (principal); J18.9 Pneumonia, unspecified organism; I47.2 Ventricular tachycardia; I42.9 Cardiomyopathy, unspecified; I13.0 Hypertensive heart and chronic kidney disease with heart failure and stage 1 through stage 4 chronic kidney disease, or unspecified chronic kidney disease; E11.22 Type 2 diabetes mellitus with diabetic chronic kidney disease; I50.22 Chronic systolic (congestive) heart failure; I47.1 Supraventricular tachycardia; I69.354 Hemiplegia and hemiparesis following cerebral infarction affecting left non-dominant side; J44.9 Chronic obstructive pulmonary disease, unspecified; I65.02 Occlusion and stenosis of left vertebral artery; D64.9 Anemia, unspecified; N18.3 Chronic kidney disease, stage 3 (moderate); Y95 Nosocomial condition; E78.5 Hyperlipidemia, unspecified; M25.552 Pain in left hip; E11.42 Type 2 diabetes mellitus with diabetic polyneuropathy; I25.2 Old myocardial infarction; Z79.4 Long term (current) use of insulin; Z79.82 Long term (current) use of aspirin; Z79.02 Long term (current) use of antithrombotics/antiplatelets; Z90.710 Acquired absence of both cervix and uterus
CPT/HCPCS: 36415; 70450; 70551; 73510; 80048; 80053; 82962; 83735; 84100; 84439; 84443; 84484; 85025; 85610; 85730; 87081; 95819; 96374; 96375; 97003; 97110; 97162; 97166; 97530; 97535; J0360; J1335; J1815; J1953; J2270; J2405; J3370; J3475; J7030

== ENCOUNTER 2018-04-09 00:45 | Emergency (ER) | END 2018-04-09 03:34 | disposition home or self-care (01) ==

== ENCOUNTER 2018-05-19 19:43 | Emergency (ER) | END 2018-05-19 23:21 | disposition home or self-care (01) ==

== ENCOUNTER 2018-10-18 05:41 | Inpatient (IN) | payer MEDICARE, OTHER ==
[2018-10-18] VITALS (20 sets, daily range): BP systolic 111–169; BP diastolic 48–101; PULSE 90–107; RESP 15–25; Ht 157.5 cm; Wt 74.0 kg
[~2018-10-18] VITALS: Ht 157.5 cm; Wt 74.0 kg
[~2018-10-18 05:41] MED LIST changes: -ACET-141 PO; +ACET325T33 PO; -ACET325T45 PO; -ADV25050 INHALATION; +AMLO-218 PO; +ASCO-110 PO; -ASCO500C7 PO; -ASPI-664 PO; +ASPI-817 PO; +ATOR-2 PO; -ATOR80TA75 PO; +BEN25 PO; -BRIM15DR2 BOTH EYES; -CAND16TA11 PO; +CARV6.2579 PO; +CLOP75TA19 PO; -CLOP75TA27 PO; +CRAN3875 PO; +CRAN425C6 PO; +DEXT1DRO6 OP; +DEXT38GE15 PO; -DOCU-159 PO; +FER325 PO; +FLUT9.9S NASAL; -GLUC1VIA6 IJ; +HYDR-4011 PO; -HYDR-906 PO; +HYDR12.58 PO; -LEVA0.634 INHALATION; +LEVE750T70 PO; +LORA10TA3 PO; +LOSA50TA14 PO; +MAGN400O19 PO; -MAGN400O4 PO; +MAGN400T28 PO; +METF500T24 PO; +MULT-105 PO; -MULT-843 PO; +NAPR-685 PO; -POLY17PO6 PO; +POTA20TA15 PO; +SENN-120 PO
[2018-10-18] MEDS ORDERED: PANTOPRAZOLE IV 80 MG in SOD CHLORIDE 0.9% 100 ML IV STA (06:11)
[2018-10-18] MEDS ORDERED: PANTOPRAZOLE IV 80 MG in SOD CHLORIDE 0.9% 100 ML IVPB STA (06:11)
[2018-10-18] MEDS ORDERED: ONDANSETRON 4 MG INJ IV STA (06:19)
[2018-10-18] MEDS ORDERED: METOPROLOL 5 MG INJ ONE (07:00)
[2018-10-18] MEDS ORDERED: DEXAMETHASONE 4 MG/ML 5 ML INJ ONE (07:00)
[2018-10-18] MEDS ORDERED: METOCLOPRAMIDE 10 MG INJ ONE (07:00)
[2018-10-18] MEDS ORDERED: ONDANSETRON 4 MG INJ ONE ×2 (07:00→10:05)
--- NOTE | 2018-10-18 07:11 | ERD ---
ER Documentation Chief Complaint Chief Complaint coffeeground emesis x 1 episode, abd pain 2 days ago now resolved. HPI 78-year-old female who is getting twice daily naproxen is on aspirin and Plavix for prior stroke with left-sided deficits. Patient presents with mild generalized abdominal pain for 1-2 days. The patient has had multiple episodes of maroon emesis. No melena. No history of alcohol disease or peptic ulcer disease. Patient is a somewhat limited historian given underlying baseline encephalopathy. History mostly provided by family member. ROS Limited Medications Home Meds Reported Medications Acetaminophen* (Tylenol*) 325 Mg Tablet, 650 MG PO Q4H PRN for MILD PAIN LEVEL 1-3, TAB 05/19/18 Linagliptin (TRADJENTA) 5 Mg Tablet, 5 MG PO DAILY, TAB 05/19/18 Sennosides* (Senna Lax*) 8.6 Mg Tablet, 1 TAB PO DAILY, TAB 05/19/18 Pantoprazole* (Protonix*) 40 Mg Tablet.dr, 40 MG PO DAILY, TAB 05/19/18 Potassium Chloride* (K-Dur*) 20 Meq Tab.prt.sr, 40 MEQ PO DAILY, TAB.SA 05/19/18 Clopidogrel Bisulfate* (Clopidogrel Bisulfate*) 75 Mg Tablet, 75 MG PO DAILY, #30 TAB 05/19/18 Mv-Mn/FA/Vit K/Lycop/Lut/Zeaxa (Ocuvite Eye + Multi Tablet) 1 Each Tablet, 1 EACH PO DAILY, TAB 05/19/18 Amlodipine Besylate* (Norvasc*) 10 Mg Tablet, 10 MG PO DAILY, TAB 05/19/18 Hydrocodone/Acetaminophen ([place] 5-325 Tablet) 1 Each Tablet, 1 EACH PO Q8H for FOR PAIN 7-04/13, TAB 05/19/18 Naproxen* (Naproxen*) 375 Mg Tablet, 375 MG PO Q8H, TAB 05/19/18 Multivitamin with Minerals (Multivitamins with Minerals) 1 Each Tablet, 1 EACH PO DAILY, TAB 05/19/18 Magnesium Hydroxide* (Milk Of Magnesia*) 400 Mg/5 Ml Oral.susp, 30 ML PO Q24H PRN for NEEDED, ML 05/19/18 Metformin Hcl* (Metformin Hcl*) 500 Mg Tablet, 500 MG PO WITH BREAKFAST DINNE, #60 TAB 05/19/18 Magnesium Oxide* (Magnesium Oxide*) 400 Mg Tablet, 400 MG PO DAILY, TAB 05/19/18 Losartan Potassium* (Losartan Potassium*) 50 Mg Tablet, 50 MG PO BID, TAB HOLD IF SBP BELOW 110 OR AP BELOW 60 05/19/18 Loratadine* (Loratadine*) 10 Mg Tablet, 10 MG PO DAILY, #30 TAB 05/19/18 Atorvastatin* (Atorvastatin*) 80 Mg Tablet, 80 MG PO QHS, #30 TAB 05/19/18 Levetiracetam* (Keppra*) 750 Mg Tablet, 750 MG PO BID, TAB 05/19/18 Hydrochlorothiazide* (Hydrochlorothiazide*) 12.5 Mg Tablet, 12.5 MG PO DAILY, #30 TAB HOLD IF SBP BELOW 110 OR AP BELOW 60 05/19/18 Dextrose (Glucose Gel) 38 Gm Gel..gram., 15 GM PO NEEDED 05/19/18 Gabapentin* (Gabapentin*) 100 Mg Capsule, 100 MG PO Q12H, #90 CAP 05/19/18 Fluticasone Propionate (Flonase Allergy Relief) 9.9 Ml [place].susp, 1 SPRAY NASAL BID, #1 BOTTLE TO EACH NOSTRIL 05/19/18 Na Phos,M-B/Na Phos,Di-Ba (Fleet Enema Extra) 230 Ml Enema, 1 APPLIC RC Q2D PRN for NEEDED, ENEMA 05/19/18 Ferrous Sulfate* (Ferrous Sulfate*) 325 Mg Tabec, 325 MG PO DAILY, TAB 05/19/18 Bisacodyl* (Bisacodyl*) 10 Mg Supp, 10 MG ND Q24H PRN for NEEDED, SUPP 05/19/18 Cranberry Extract (Cranberry) 425 Mg Capsule, 425 MG PO BID, CAP 05/19/18 Carvedilol* (Carvedilol*) 6.25 Mg Tablet, 6.25 MG PO BID, #60 TAB HOLD IF SBP BELOW 110 OR AP BELOW 60 05/19/18 Diphenhydramine Hcl* (Benadryl*) 25 Mg Cap, 25 MG PO Q6H PRN for ITCHING, CAP 05/19/18 Cholecalciferol* (Vitamin D3*) 1,000 Unit Tablet, 1000 UNIT PO BID, TAB 05/19/18 Ascorbate Calcium (Vitamin C) 500 Mg Tablet, 500 MG PO DAILY, TAB 05/19/18 Cran/Vitc/Mannose/Inulin/Brom (Uti-Stat Liquid) 3,875 Mg/30 Ml Liquid, 30 ML PO BID 05/19/18 Aspirin* (Aspirin* EC) 81 Mg Tablet.dr, 81 MG PO DAILY, TAB 05/19/18 Dextran 70/Hypromellose (Artificial Tears) 1 Each Droperette, 1 EACH OP QID 05/19/18 Allergies Allergies: Coded Allergies: Penicillins (Unverified Allergy, Severe, ITCHING, RASH, HIVES, 05/19/18) KE PÉREZ SPOKE W/ PT - PT SELF REPORTS ITCHING, RASH, HIVES W/ PCN has tolerated cefazolin and ceftriaxone in January and February 2017 ertapenem (Unverified Allergy, Unknown, 05/19/18) levofloxacin (Verified Adverse Reaction, Severe, arrhythmia, 05/19/18) 02/24 [facility] admission - one episode of non sustained vtach possibly 2/2 fluoroquinolone PMhx/Soc History of Surgery: Yes (hysterectomy, insertion of LOP recorder-left chest) Anesthesia Reaction: No Hx Neurological Disorder: Yes (CVA w/ left sided weakness 12/2016,epilepsy) Hx Respiratory Disorders: Yes (pneumonia,COPD,acute respiratory failure) Hx Cardiac Disorders: Yes (HTN, CHF,NSTEMI,SVT,cardiomyopathy) Hx Psychiatric Problems: No Hx Miscellaneous Medical Probl: Yes (diabetes,chronic kidney disease,polyneuropathy,spinal stenosis,GERD,[place]) Hx Alcohol Use: No Hx Substance Use: No Hx Tobacco Use: No FmHx Family History: No diabetes Physical Exam Vitals Vital Signs Date Temp Pulse Resp B/P (MAP) Pulse Ox O2 O2 Flow FiO2 Time Delivery Rate 10/18/18 102 18 160/109 100 Room Air 07:50 (126) 10/18/18 102 18 125/81 100 Room Air 07:35 (96) 10/18/18 86 18 109/55 99 Room Air 07:15 (73) 10/18/18 99.3 110 18 134/78 98 05:59 (96) Physical Exam General: Well developed, well nourished, no acute distress Head: Normocephalic, atraumatic. Eyes: Pupils equally reactive, EOM intact ENT: Dry mucous membranes, dry blood at the corners of mouth Neck: Supple, no lymphadenopathy Respiratory: Lungs clear bilaterally, no distress Cardiovascular: RRR, no murmurs, rubs, or gallops Abdominal: Soft, non-tender, non-distended, no peritoneal signs : Deferred MSK: No edema, no unilateral swelling Neurologic: Alert and oriented at baseline, residual left-sided deficit Skin: No rash Psych: Normal mood Result Diagram: 10/18/18 0540 10/18/18 0540 Results 24 hrs Laboratory Tests Test 10/18/18 05:40 White Blood Count 14.8 10^3/ul Red Blood Count 2.45 10^6/ul Hemoglobin 7.8 g/dl Hematocrit 24.2 % Mean Corpuscular Volume 98.8 fl Mean Corpuscular Hemoglobin 31.8 pg Mean Corpuscular Hemoglobin Concent 32.2 g/dl Red Cell Distribution Width 11.8 % Platelet Count 329 10^3/UL Mean Platelet Volume 10.5 fl Immature Granulocytes % 0.800 % Neutrophils % 80.3 % Lymphocytes % 13.8 % Monocytes % 2.2 % Eosinophils % 2.4 % Basophils % 0.5 % Nucleated Red Blood Cells % 0.0 /100WBC Immature Granulocytes # 0.120 10^3/ul Neutrophils # 11.8 10^3/ul Lymphocytes # 2.0 10^3/ul Monocytes # 0.3 10^3/ul Eosinophils # 0.4 10^3/ul Basophils # 0.1 10^3/ul Nucleated Red Blood Cells # 0.0 10^3/ul Prothrombin Time 12.8 Sec Prothrombin Time Ratio 1.0 INR International Normalized Ratio 0.95 Activated Partial Thromboplast Time 28.4 Sec Sodium Level 138 mmol/L Potassium Level 5.2 mmol/L Chloride Level 107 mmol/L Carbon Dioxide Level 21 mmol/L Anion Gap 10 Blood Urea Nitrogen 52 mg/dl Creatinine 1.19 mg/dl Est Glomerular Filtrat Rate mL/min mL/min Glucose Level 161 mg/dl Calcium Level 8.8 mg/dl Total Bilirubin 0.1 mg/dl Direct Bilirubin 0.00 mg/dl Indirect Bilirubin 0.1 mg/dl Aspartate Amino Transf (AST/SGOT) 14 IU/L Alanine Aminotransferase (ALT/SGPT) 13 IU/L Alkaline Phosphatase 57 IU/L Troponin I < 0.012 ng/ml Total Protein 5.9 g/dl Albumin 3.2 g/dl Globulin 2.70 g/dl Albumin/Globulin Ratio 1.18 Current Medications Medications Dose Sig/Alicia Start Time Status Last (Trade) Ordered Route PRN Stop Time Admin Dose Reason Admin Pantoprazole 100 ml @ ONCE STAT 10/18/18 DC 10/18/18 80 mg/Sodium 400 mls/hr IVPB 06:11 06:53 Chloride 10/18/18 06:25 Pantoprazole 100 ml @ ONCE STAT 10/18/18 10/18/18 80 mg/Sodium 10 mls/hr IV 06:11 07:24 Chloride 10/18/18 16:10 Ondansetron 4 mg ONCE STAT 10/18/18 DC 10/18/18 HCl (Zofran IV 06:19 06:24 Inj) 10/18/18 06:20 Sodium 0 ml @ 0 Q0M ONCE 10/18/18 DC Chloride mls/hr IV 07:12 10/18/18 07:13 Procedures/MDM EKG, MONITORS, & DIAGNOSTIC IMAGING: EKG: I reviewed and interpreted a 12-lead EKG. Rhythm: Normal sinus rhythm ST Changes: No contiguous ST segment elevations T waves: No contiguous T wave inversions Impression: [No evidence of acute cardiac ischemia] CT abdomen and pelvis: IMPRESSION: Distension of the duodenum with a large amount of dense material in the distal stomach and duodenum which could be due to blood. Duodenal wall thickening. Upper endoscopy may be helpful. RPTAT: [facility] LAB INTERPRETATION: I reviewed the laboratory testing and it shows anemia with a hemoglobin drop from 12-7. Elevated BUN to creatinine ratio MEDICAL DECISION MAKING: The patient presents with signs and symptoms consistent with acute upper GI hemorrhage likely secondary to NSAID and antiplatelet activity. The patient is on 3 medications which should be contributing to this including daily naproxen, aspirin and Plavix. Patient does not take any other anticoagulants per medical record and documents from snf facility. The patient is hemodynamically stable but still having active vomiting. NG tube insertion and lavage is likely appropriate in this setting. The patient will benefit from PPI bolus and drip and inpatient hospitalization for GI consultation. ER COURSE: * 2 large bore peripheral IVs were inserted. The patient was typed and screened. * Antinausea medication provided. NG tube inserted * The patient's laboratory testing and clinical status revealed a more critical patient. NG tube was inserted with lavage showing blood. The patient's hemoglobin is dropped from 12-7. * 2 units of uncrossed matched packed red blood cells have been ordered. * I discussed with the patient and/or family the risks, benefits, alternatives of blood transfusion. This includes allergic reaction and infections includi ng HIV and hepatitis. The patient and/or family were able to verbalize these risks, stated understanding. A document has been signed and placed in the chart. * The patient's hemodynamics remained stable, she does not require a central line. * Dr. Centeno was notified around 7:16 AM and will take the patient to the GI lab at 9 AM * Patient will be placed in the intensive care unit CONSULTATION: Gastroenterology: Dr. Centeno DISPOSITION PLAN: Accepting care team and consultations: I discussed the current laboratory data, diagnostic imaging and emergency care provided. Admitting team: Dr. Cruz Admitting team indication: Insurance directed Critical Care Note: Total time: 50 minutes Indication/Organ System Threat: Severe upper GI bleed I spent the above amount of critical care time with the patient, not including billable procedures. This included chart review, consultations, repeat bedside evaluations, and titration of appropriate medications to prevent cardiopulmonary or respiratory collapse. Departure Diagnosis: Primary Impression: Upper GI bleed Additional Impressions: Severe anemia Acute renal insufficiency History of stroke Condition: Critical [facility]MM LATHAM MD Oct 18, 2018 07:11
[2018-10-18] MEDS ORDERED: SOD CHLORIDE 0.9% 0 ML IV ONE (07:12)
[2018-10-18] MEDS ORDERED: ONDANSETRON 4 MG INJ IV PRN ×2 (08:30→09:30)
[2018-10-18] MEDS: PANTOPRAZOLE IV 80 MG in SOD CHLORIDE 0.9% 100 ML IV SCH ×2 (09:00→15:53)
[2018-10-18] MEDS ORDERED: ETOMIDATE 20 MG INJ ONE (09:11)
[2018-10-18] MEDS ORDERED: PHENYLephrine (100 MCG/ML) 10ML SYG ONE (09:12)
[2018-10-18] MEDS ORDERED: PROPOFOL 20 ML ONE (09:12)
[2018-10-18] MEDS ORDERED: LIDOCAINE 2% (SDV) 5 ML INJ ONE ×2 (09:12)
[2018-10-18] MEDS ORDERED: SUCCINYLCHOLINE CHLORIDE 100 MG/5 ML SYG IV ONE (09:25)
--- NOTE | 2018-10-18 09:25 | CONS ---
Assessment/Plan Assessment/Plan Hospital Course (Demo Recall) Assessment: Upper GI bleeding/hematemesis/active Anemia likely secondary to above. Extensive use of nonsteroidal inflammatory agents. Unclear use of Plavix. Listed but patient denies taking it Status post right hemispheric CVA with left hemiparesis. History of hypertension. History of diabetes mellitus. History of dyslipidemia. Moderate obesity. Plan: Patient is being transfused. She will be evaluated endoscopically in the OR under general anesthesia to protect airway given the large amount of material noticed on CT this morning. The procedure has been explained to the patient and her daughter in detail including risks, benefits and alternatives and they are agreeable to proceed. Further recommendations depend on our findings. Consultation Date/Type/Reason Admit Date/Time Oct 18, 2018 at 07:52 Date of Consultation: Oct 18, 2018 Type of Consult Gastroenterology Reason for Consultation Upper GI bleeding Date/Time of Note DATE: 10/18/18 TIME: 09:19 Hx of Present Illness 78-year-old female evaluated in the company of her daughter who provides information and is primary caregiver. The patient has been complaining of right-sided abdominal pain for the last week or so. Patient vomited blood in several locations in the morning was brought to the emergency room. Of note the patient is currently receiving naproxen twice a day there are notes that stated patient was on Plavix and aspirin post CVA. The patient denies taking Plavix. At any rate the patient's hemoglobin was 7.8 while vomiting fresh blood. NG tube was placed and approximately 200 cc of fresh blood were removed. The patient is currently in the ICU, she appears hemodynamically stable. A CT of the abdomen obtained in the emergency room showed large amounts of material in the stomach and duodenum probably representing blood. The patient will be transferred to the operating room for emergency endoscopy under general anesthesia to protect airway. The patient and her family have been informed of the procedures potential risks and complications as well as alternatives and they are agreeable to proceed. The patient has had a colonoscopy at age 52 and none since. There is no hematochezia. The patient does report dark stools but she takes iron on a regular basis in the colon has not noticeably changed. Her past history is also significant for diabetes mellitus and hypertension and probably hyperlipidemia. She is status post right hemispheric CVA with left hemiparesis. Review of Systems: [A 12 system, review was conducted and is negative except as noted in the HPI or here.] Gastrointestinal and liver: [As noted in HPI] Past Medical History Post right hemispheric CVA with left hemiparesis Hypertension Diabetes mellitus Dyslipidemia. Home Meds Reported Medications Acetaminophen* (Tylenol*) 325 Mg Tablet, 650 MG PO Q4H PRN for MILD PAIN LEVEL 1-3, TAB 05/19/18 Linagliptin (TRADJENTA) 5 Mg Tablet, 5 MG PO DAILY, TAB 05/19/18 Sennosides* (Senna Lax*) 8.6 Mg Tablet, 1 TAB PO DAILY, TAB 05/19/18 Pantoprazole* (Protonix*) 40 Mg Tablet.dr, 40 MG PO DAILY, TAB 05/19/18 Potassium Chloride* (K-Dur*) 20 Meq Tab.prt.sr, 40 MEQ PO DAILY, TAB.SA 05/19/18 Clopidogrel Bisulfate* (Clopidogrel Bisulfate*) 75 Mg Tablet, 75 MG PO DAILY, #30 TAB 05/19/18 Mv-Mn/FA/Vit K/Lycop/Lut/Zeaxa (Ocuvite Eye + Multi Tablet) 1 Each Tablet, 1 EACH PO DAILY, TAB 05/19/18 Amlodipine Besylate* (Norvasc*) 10 Mg Tablet, 10 MG PO DAILY, TAB 05/19/18 Hydrocodone/Acetaminophen ([place] 5-325 Tablet) 1 Each Tablet, 1 EACH PO Q8H for FOR PAIN -04/13, TAB 05/19/18 Naproxen* (Naproxen*) 375 Mg Tablet, 375 MG PO Q8H, TAB 05/19/18 Multivitamin with Minerals (Multivitamins with Minerals) 1 Each Tablet, 1 EACH PO DAILY, TAB 05/19/18 Magnesium Hydroxide* (Milk Of Magnesia*) 400 Mg/5 Ml Oral.susp, 30 ML PO Q24H PRN for NEEDED, ML 05/19/18 Metformin Hcl* (Metformin Hcl*) 500 Mg Tablet, 500 MG PO WITH BREAKFAST DINNE, #60 TAB 05/19/18 Magnesium Oxide* (Magnesium Oxide*) 400 Mg Tablet, 400 MG PO DAILY, TAB 05/19/18 Losartan Potassium* (Losartan Potassium*) 50 Mg Tablet, 50 MG PO BID, TAB HOLD IF SBP BELOW 110 OR AP BELOW 60 05/19/18 Loratadine* (Loratadine*) 10 Mg Tablet, 10 MG PO DAILY, #30 TAB 05/19/18 Atorvastatin* (Atorvastatin*) 80 Mg Tablet, 80 MG PO QHS, #30 TAB 05/19/18 Levetiracetam* (Keppra*) 750 Mg Tablet, 750 MG PO BID, TAB 05/19/18 Hydrochlorothiazide* (Hydrochlorothiazide*) 12.5 Mg Tablet, 12.5 MG PO DAILY, #30 TAB HOLD IF SBP BELOW 110 OR AP BELOW 60 05/19/18 Dextrose (Glucose Gel) 38 Gm Gel..gram., 15 GM PO NEEDED 05/19/18 Gabapentin* (Gabapentin*) 100 Mg Capsule, 100 MG PO Q12H, #90 CAP 05/19/18 Fluticasone Propionate (Flonase Allergy Relief) 9.9 Ml [place].susp, 1 SPRAY NASAL BID, #1 BOTTLE TO EACH NOSTRIL 05/19/18 Na Phos,M-B/Na Phos,Di-Ba (Fleet Enema Extra) 230 Ml Enema, 1 APPLIC RC Q2D PRN for NEEDED, ENEMA 05/19/18 Ferrous Sulfate* (Ferrous Sulfate*) 325 Mg Tabec, 325 MG PO DAILY, TAB 05/19/18 Bisacodyl* (Bisacodyl*) 10 Mg Supp, 10 MG NC Q24H PRN for NEEDED, SUPP 05/19/18 Cranberry Extract (Cranberry) 425 Mg Capsule, 425 MG PO BID, CAP 05/19/18 Carvedilol* (Carvedilol*) 6.25 Mg Tablet, 6.25 MG PO BID, #60 TAB HOLD IF SBP BELOW 110 OR AP BELOW 60 05/19/18 Diphenhydramine Hcl* (Benadryl*) 25 Mg Cap, 25 MG PO Q6H PRN for ITCHING, CAP 05/19/18 Cholecalciferol* (Vitamin D3*) 1,000 Unit Tablet, 1000 UNIT PO BID, TAB 05/19/18 Ascorbate Calcium (Vitamin C) 500 Mg Tablet, 500 MG PO DAILY, TAB 05/19/18 Cran/Vitc/Mannose/Inulin/Brom (Uti-Stat Liquid) 3,875 Mg/30 Ml Liquid, 30 ML PO BID 05/19/18 Aspirin* (Aspirin* EC) 81 Mg Tablet.dr, 81 MG PO DAILY, TAB 05/19/18 Dextran 70/Hypromellose (Artificial Tears) 1 Each [place], 1 EACH OP QID 05/19/18 Medications Current Medications Pantoprazole 80 mg/Sodium Chloride 100 ml @ 10 mls/hr ONCE STAT IV Last administered on 10/18/18at 07:24; Admin Dose 10 MLS/HR; Start 10/18/18 at 06:11; Stop 10/18/18 at 16:10 Sodium Chloride 1,000 ml @ 100 mls/hr Q10H IV ; Start 10/18/18 at 08:30 Pantoprazole 80 mg/Sodium Chloride 100 ml @ 10 mls/hr Q10H IV ; Start 10/18/18 at 09:00 Ondansetron HCl (Zofran Inj) 4 mg Q4H PRN IV NAUSEA AND/OR VOMITING; Start 10/18/18 at 08:30 Hydralazine HCl (Apresoline) 20 mg Q6H PRN IV sbp>160,dbp>95; Start 10/18/18 at 08:30 Allergies: Coded Allergies: Penicillins (Unverified Allergy, Severe, ITCHING, RASH, HIVES, 05/19/18) KE PÉREZ SPOKE W/ PT - PT SELF REPORTS ITCHING, RASH, HIVES W/ PCN has tolerated cefazolin and ceftriaxone in January and February 2017 ertapenem (Unverified Allergy, Unknown, 05/19/18) levofloxacin (Verified Adverse Reaction, Severe, arrhythmia, 05/19/18) 02/24 [facility] admission - one episode of non sustained vtach possibly 2/2 fluoroquinolone Past Surgical History Hysterectomy Social History Alcohol Use: none Smoking Status: Never smoker Drug Use: none Exam/Review of Systems Exam Vitals Vital Signs Date Temp Pulse Resp B/P (MAP) Pulse Ox O2 O2 Flow FiO2 Time Delivery Rate 10/18/18 98 18 156/83 100 Room Air 08:30 (107) 10/18/18 99.3 05:59 Exam PHYSICAL EXAMINATION: GENERAL: Well developed, well nourished, grossly obese, alert & oriented x 3, in no acute distress SKIN: No lesions, no stigmata chronic liver disease, no evidence of bleeding diathesis LYMPHATIC: No palpable lymphadenopathy. HEAD: Normocephalic, atraumatic, no tenderness. EYES: Pupils equal reactive to light and accommodation, full extraocular movements, sclera clear, non-icteric, no discharge. EARS/NOSE AND THROAT: Ears normal, nose normal, oropharynx normal, oral membranes well hydrated without lesions. NECK: Supple, no masses, thyroid normal, JVP within normal limits, carotids normal without bruits. CHEST: Inspection within normal limits. CARDIOVASCULAR: Heart: Regular rate and rhythm, no murmurs, gallops or rubs. Peripheral pulses present within normal limits, no cyanosis, clubbing or edemas. No pulsatile abdominal mass RESPIRATORY: Lungs clear to auscultation and percussion, no wheezing, no rubs GASTROINTESTINAL AND LIVER: Abdomen: Soft, diffuse tenderness, mildly distended, no hernias, no masses, no organomegaly, no ascites, no guarding, no rebound tenderness, normoactive bowel sounds. Rectal: Deferred. GENITOURINARY: [Female genitalia within normal limits.] EXTREMITIES: No cyanosis, clubbing or edema. Results Result Diagram: 10/18/18 0540 10/18/18 0540 Results 24hrs Laboratory Tests Test 10/18/18 05:40 White Blood Count 14.8 #H Red Blood Count 2.45 #L Hemoglobin 7.8 #L Hematocrit 24.2 #L Mean Corpuscular Volume 98.8 Mean Corpuscular Hemoglobin 31.8 Mean Corpuscular Hemoglobin Concent 32.2 Red Cell Distribution Width 11.8 Platelet Count 329 Mean Platelet Volume 10.5 H Immature Granulocytes % 0.800 H Neutrophils % 80.3 H Lymphocytes % 13.8 L Monocytes % 2.2 Eosinophils % 2.4 Basophils % 0.5 Nucleated Red Blood Cells % 0.0 Immature Granulocytes # 0.120 H Neutrophils # 11.8 H Lymphocytes # 2.0 Monocytes # 0.3 Eosinophils # 0.4 Basophils # 0.1 Nucleated Red Blood Cells # 0.0 Prothrombin Time 12.8 Prothrombin Time Ratio 1.0 INR International Normalized Ratio 0.95 Activated Partial Thromboplast Time 28.4 Sodium Level 138 Potassium Level 5.2 H Chloride Level 107 Carbon Dioxide Level 21 Anion Gap 10 Blood Urea Nitrogen 52 H Creatinine 1.19 H Est Glomerular Filtrat Rate mL/min Glucose Level 161 Calcium Level 8.8 Total Bilirubin 0.1 L Direct Bilirubin 0.00 Indirect Bilirubin 0.1 Aspartate Amino Transf (AST/SGOT) 14 L Alanine Aminotransferase (ALT/SGPT) 13 Alkaline Phosphatase 57 Troponin I < 0.012 Total Protein 5.9 L Albumin 3.2 L Globulin 2.70 Albumin/Globulin Ratio 1.18 Medications Medication Current Medications Pantoprazole 80 mg/Sodium Chloride 100 ml @ 10 mls/hr ONCE STAT IV Last administered on 10/18/18at 07:24; Admin Dose 10 MLS/HR; Start 10/18/18 at 06:11; Stop 10/18/18 at 16:10 Sodium Chloride 1,000 ml @ 100 mls/hr Q10H IV ; Start 10/18/18 at 08:30 Pantoprazole 80 mg/Sodium Chloride 100 ml @ 10 mls/hr Q10H IV ; Start 10/18/18 at 09:00 Ondansetron HCl (Zofran Inj) 4 mg Q4H PRN IV NAUSEA AND/OR VOMITING; Start 10/18/18 at 08:30 Hydralazine HCl (Apresoline) 20 mg Q6H PRN IV sbp>160,dbp>95; Start 10/18/18 at 08:30 DASHAWN JHA MD Oct 18, 2018 09:25
[2018-10-18] MEDS ORDERED: hydrALAzine 20 MG INJ IV PRN (09:30)
[2018-10-18] MEDS ORDERED: HYDROmorphONE 0.5 MG/0.5 ML SYG IV PRN ×2 (09:30)
[2018-10-18] MEDS ORDERED: DIPHENHYDRAMINE 50 MG INJ IV PRN (09:30)
[2018-10-18] MEDS ORDERED: LEVALBUTEROL (NEB) 1.25 MG/0.5 ML AMP HHN PRN (09:30)
[2018-10-18] MEDS ORDERED: HALOPERIDOL 5 MG INJ IV PRN (09:30)
[2018-10-18] MEDS ORDERED: LABETALOL HCL 20MG INJ IV PRN (09:30)
[2018-10-18] MEDS ORDERED: METOCLOPRAMIDE 10 MG INJ IV PRN (09:30)
[2018-10-18] MEDS ORDERED: FENTAnyl 50 MCG/ML VIAL IV PRN (09:30)
[2018-10-18] MEDS ORDERED: IPRATROPIUM (NEB) 0.5 MG/2.5 ML AMP HHN PRN (09:30)
--- NOTE | 2018-10-18 09:30 | PREAC ---
Date/Time of Note Date/Time of Note DATE: 10/18/18 TIME: : Anesthesia Eval and Record Evaluation Time Pre-Procedure Interview DATE: 10/18/18 TIME: :28 Age 78 Sex female NPO: 8 hrs Preoperative diagnosis upper GI bleed Planned procedure EGD Past Medical History Past Medical History: Includes Cardio: HTN, Dyslipidemia, CAD Endo: Diabetes Pulm: COPD Neuro: Peripheral neuropathy GI: GERD, Other (gi bleed) Surgery & Anesthesia Issues No known issue Meds Anticoagulation: No Beta Dusty within 24 hr: No Reason Beta Dusty not given: Pt. not on B-Dusty Reported Medications Acetaminophen* (Tylenol*) 325 Mg Tablet, 650 MG PO Q4H PRN for MILD PAIN LEVEL 1-3, TAB 05/19/18 Linagliptin (TRADJENTA) 5 Mg Tablet, 5 MG PO DAILY, TAB 05/19/18 Sennosides* (Senna Lax*) 8.6 Mg Tablet, 1 TAB PO DAILY, TAB 05/19/18 Pantoprazole* (Protonix*) 40 Mg Tablet.dr, 40 MG PO DAILY, TAB 05/19/18 Potassium Chloride* (K-Dur*) 20 Meq Tab.prt.sr, 40 MEQ PO DAILY, TAB.SA 05/19/18 Clopidogrel Bisulfate* (Clopidogrel Bisulfate*) 75 Mg Tablet, 75 MG PO DAILY, #30 TAB 05/19/18 Mv-Mn/FA/Vit K/Lycop/Lut/Zeaxa (Ocuvite Eye + Multi Tablet) 1 Each Tablet, 1 EACH PO DAILY, TAB 05/19/18 Amlodipine Besylate* (Norvasc*) 10 Mg Tablet, 10 MG PO DAILY, TAB 05/19/18 Hydrocodone/Acetaminophen ([place] 5-325 Tablet) 1 Each Tablet, 1 EACH PO Q8H for FOR PAIN 7-04/13, TAB 05/19/18 Naproxen* (Naproxen*) 375 Mg Tablet, 375 MG PO Q8H, TAB 05/19/18 Multivitamin with Minerals (Multivitamins with Minerals) 1 Each Tablet, 1 EACH PO DAILY, TAB 05/19/18 Magnesium Hydroxide* (Milk Of Magnesia*) 400 Mg/5 Ml Oral.susp, 30 ML PO Q24H PRN for NEEDED, ML 05/19/18 Metformin Hcl* (Metformin Hcl*) 500 Mg Tablet, 500 MG PO WITH BREAKFAST DINNE, #60 TAB 05/19/18 Magnesium Oxide* (Magnesium Oxide*) 400 Mg Tablet, 400 MG PO DAILY, TAB 05/19/18 Losartan Potassium* (Losartan Potassium*) 50 Mg Tablet, 50 MG PO BID, TAB HOLD IF SBP BELOW 110 OR AP BELOW 60 05/19/18 Loratadine* (Loratadine*) 10 Mg Tablet, 10 MG PO DAILY, #30 TAB 05/19/18 Atorvastatin* (Atorvastatin*) 80 Mg Tablet, 80 MG PO QHS, #30 TAB 05/19/18 Levetiracetam* (Keppra*) 750 Mg Tablet, 750 MG PO BID, TAB 05/19/18 Hydrochlorothiazide* (Hydrochlorothiazide*) 12.5 Mg Tablet, 12.5 MG PO DAILY, #30 TAB HOLD IF SBP BELOW 110 OR AP BELOW 60 05/19/18 Dextrose (Glucose Gel) 38 Gm Gel..gram., 15 GM PO NEEDED 05/19/18 Gabapentin* (Gabapentin*) 100 Mg Capsule, 100 MG PO Q12H, #90 CAP 05/19/18 Fluticasone Propionate (Flonase Allergy Relief) 9.9 Ml [place].susp, 1 SPRAY NASAL BID, #1 BOTTLE TO EACH NOSTRIL 05/19/18 Na Phos,M-B/Na Phos,Di-Ba (Fleet Enema Extra) 230 Ml Enema, 1 APPLIC RC Q2D PRN for NEEDED, ENEMA 05/19/18 Ferrous Sulfate* (Ferrous Sulfate*) 325 Mg Tabec, 325 MG PO DAILY, TAB 05/19/18 Bisacodyl* (Bisacodyl*) 10 Mg Supp, 10 MG UT Q24H PRN for NEEDED, SUPP 05/19/18 Cranberry Extract (Cranberry) 425 Mg Capsule, 425 MG PO BID, CAP 05/19/18 Carvedilol* (Carvedilol*) 6.25 Mg Tablet, 6.25 MG PO BID, #60 TAB HOLD IF SBP BELOW 110 OR AP BELOW 60 05/19/18 Diphenhydramine Hcl* (Benadryl*) 25 Mg Cap, 25 MG PO Q6H PRN for ITCHING, CAP 05/19/18 Cholecalciferol* (Vitamin D3*) 1,000 Unit Tablet, 1000 UNIT PO BID, TAB 10/16/18 Ascorbate Calcium (Vitamin C) 500 Mg Tablet, 500 MG PO DAILY, TAB 05/19/18 Cran/Vitc/Mannose/Inulin/Brom (Uti-Stat Liquid) 3,875 Mg/30 Ml Liquid, 30 ML PO BID 05/19/18 Aspirin* (Aspirin* EC) 81 Mg Tablet.dr, 81 MG PO DAILY, TAB 05/19/18 Dextran 70/Hypromellose (Artificial Tears) 1 Each Droperette, 1 EACH OP QID 05/19/18 Current Medications Pantoprazole 80 mg/Sodium Chloride 100 ml @ 10 mls/hr ONCE STAT IV Last administered on 10/18/18at 07:24; Admin Dose 10 MLS/HR; Start 10/18/18 at 06:11; Stop 10/18/18 at 16:10 Sodium Chloride 1,000 ml @ 100 mls/hr Q10H IV ; Start 10/18/18 at 08:30 Pantoprazole 80 mg/Sodium Chloride 100 ml @ 10 mls/hr Q10H IV ; Start 10/18/18 at 09:00 Ondansetron HCl (Zofran Inj) 4 mg Q4H PRN IV NAUSEA AND/OR VOMITING; Start 10/18/18 at 08:30 Hydralazine HCl (Apresoline) 20 mg Q6H PRN IV sbp>160,dbp>95; Start 10/18/18 at 08:30 Meds reviewed: Yes Allergies Coded Allergies: Penicillins (Unverified Allergy, Severe, ITCHING, RASH, HIVES, 05/19/18) KE PÉREZ SPOKE W/ PT - PT SELF REPORTS ITCHING, RASH, HIVES W/ PCN has tolerated cefazolin and ceftriaxone in January and February 2017 ertapenem (Unverified Allergy, Unknown, 05/19/18) levofloxacin (Verified Adverse Reaction, Severe, arrhythmia, 05/19/18) 02/24 H admission - one episode of non sustained vtach possibly 2/2 fluoroquinolone Allergies Reviewed: Yes Labs/Studies Labs Reviewed: Reviewed by anesthesiologist Result Diagram: 10/18/18 0540 10/18/18 0540 Laboratory Tests 10/18/18 05:40 Blood Bank Test 10/18/18 07:52 Antibody Screen NEGATIVE Blood Product Summary Counts Blood Type O POSITIVE Crossmatch Red Blood Cells test: Negative Studies: ECG, CXR Pre-procedure Exam Last vitals Vital Signs Date Temp Pulse Resp B/P (MAP) Pulse Ox O2 O2 Flow FiO2 Time Delivery Rate 10/18/18 98 18 156/83 100 Room Air 08:30 (107) 10/18/18 99.3 05:59 Airway: Adequate mouth opening, Adequate thyromental dist Mallampati: Mallampati III Teeth: Normal Lung: Normal Heart: Normal ASA Physical Status ASA physical status: 4 Emergency: E Planned Anesthetic General/MAC: ETT Planned Pain Management Parenteral pain med Pre-operative Attestations Prior to commencing anesthesia and surgery, the patient was re-evaluated, there was verification of: *The patient's identity *The results of appropriate recent lab work and preoperative vital signs *The above evaluation not changing prior to induction *Anesthetic plan, risk benefits, alternative and complications discussed with patient/family; questions answered; patient/family understands, accepts and wishes to proceed. LIZ MANTILLA MD Oct 18, 2018 09:30
[2018-10-18] MEDS ORDERED: hydrALAzine 20 MG INJ ONE (09:47)
[2018-10-18] MEDS ORDERED: FAMOTIDINE 20 MG INJ ONE (10:05)
--- NOTE | 2018-10-18 10:20 | OPPN ---
Date/Time of Note Date/Time of Note DATE: 10/18/18 TIME: 10:16 Proc Note GI Procedure Date 10/18/18 Indication: diagnostic, treatment Pre-procedure Diagnosis Upper GI bleeding/hematemesis/anemia Post-procedure Diagnosis Impression: Probable duodenal ulcer with large amounts of clots. No evidence of active bleeding. Limited examination. Clots were not removed as there appears to be no active bleeding. Plan: Maximize antiulcer therapy. Close monitoring H&H and transfuse as necessary. Reevaluate in 48-72 hours or sooner if active bleeding. Procedure Performed: Endoscopy Surgeon DASHAWN JHA MD See signature line Rag Cutting Machine Tender none Anesthesia Type: general Tourniquet Time none EBL none Transfusion required none Biopsy 1: None Grafts/Implants none Tubes/Drains none Complication(s) none Disposition: PACU Procedure Description After informed consent, with the patient/relatives understanding the procedure, its indications, potential risks and complications, including but not limited to: allergic reaction, bleeding, perforation or infection, and after all pertinent questions were answered to the patients satisfaction, the patient/relatives signed witnessed informed consent. Following this, premedication was administered slowly IV push under careful cardiovascular and respiratory monitoring with pulse oximetry, automatic blood pressure, and quality assurance monitor final. Once the sedative effect was achieved the patient was place in the left lateral decubitus, the panendoscope was introduced and advanced under visual control. Careful examination of the upper gastrointestinal tract, both on insertion as well as withdrawal of the instrument disclosing the following findings: ESOPHAGUS: the mucosa of the entire esophagus was carefully examined and showed the following findings: the mucosa appears within normal limits. There is no evidence of esophagitis, varices, neoplasm, or stricture. No Hiatal Hernia identified. STOMACH: Upon entrance to the stomach air was insufflated, the gastric jones di stended normally. The mucosa of the fundus, body and antrum of the stomach was carefully examined both head-on and on retroflexion, and showed the following findings: Moderate amount of old blood with no underlying lesion, examination is limited. No accumulation suggestive of active bleeding. PYLORUS: The pylorus was carefully examined and showed the following findings: the pylorus appears patent and within normal limits, with no evidence of gastric outlet obstruction. DUODENUM: The duodenal mucosa was carefully examined in the duodenal bulb as well as the second portion of the duodenum and showed the following findings: Large clots firmly adherent to the duodenal wall suggesting the presence of ulceration. Careful examination disclosed no accumulation of blood no evidence of active bleeding. Attempts at flushing of the clots were unsuccessful and I elected not to forcefully remove the clots out of concern of inducing further bleeding. Will closely monitor and maximize medical therapy. Copies To: CC: DASHAWN JHA MD ; DASHAWN JHA MD Oct 18, 2018 10:20
[2018-10-18] MEDS: SOD CHLORIDE 0.9% 1,000 ML IV SCH ×2 (12:57→20:39)
[2018-10-18] MEDS: INSULIN ASPART [NOVOLOG] 3 ML PEN SC SCH ×3 (12:59→21:28)
--- NOTE | 2018-10-18 16:38 | CONS ---
Assessment/Plan Assessment/Plan Hospital Course (Demo Recall) Upper GI bleed History of CVA Left vertebral artery stenosis Hypertension Cerebral artery disease Diabetes Cardiomyopathy with ejection fraction 40% Paroxysmal atrial tachycardia -Patient with upper GI bleed and thought secondary to NSAID use and Plavix. Patient was on Plavix because of known cerebrovascular disease and history of CVA on previous admissions. This is been stopped at the current time because of acute GI bleed -Would restart statin therapy, beta-katherine as heart rate and blood pressure permits Consultation Date/Type/Reason Admit Date/Time Oct 18, 2018 at 07:52 Type of Consult Cardiology Reason for Consultation Cardiology evaluation Date/Time of Note DATE: 10/18/18 TIME: 16:31 Hx of Present Illness This is a 78-year-old female known to me from multiple previous admissions with history of cerebral vascular disease, CVA who presents with evidence of GI bleed. Patient with coffee-ground emesis. Patient is undergone GI evaluation and has had EGD with evidence of blood clots but no active bleeding. Patient was on Plavix because of cerebral vascular disease and recurrent strokes. She can denies any chest pain, shortness of breath or palpitations. She denies any dizziness or lightheadedness. 12 point review of systems was performed with all pertinent positives and negatives mentioned above and all else is negative Past Medical History History of CVA Left vertebral artery stenosis Hypertension Cerebral artery disease Diabetes Cardiomyopathy with ejection fraction 40% Paroxysmal atrial tachycardia Home Meds Reported Medications Acetaminophen* (Tylenol*) 325 Mg Tablet, 650 MG PO Q4H PRN for MILD PAIN LEVEL 1-3, TAB 05/19/18 Linagliptin (TRADJENTA) 5 Mg Tablet, 5 MG PO DAILY, TAB 05/19/18 Sennosides* (Senna Lax*) 8.6 Mg Tablet, 1 TAB PO DAILY, TAB 05/19/18 Pantoprazole* (Protonix*) 40 Mg Tablet.dr, 40 MG PO DAILY, TAB 05/19/18 Potassium Chloride* (K-Dur*) 20 Meq Tab.prt.sr, 40 MEQ PO DAILY, TAB.SA 05/19/18 Clopidogrel Bisulfate* (Clopidogrel Bisulfate*) 75 Mg Tablet, 75 MG PO DAILY, #30 TAB 05/19/18 Mv-Mn/FA/Vit K/Lycop/Lut/Zeaxa (Ocuvite Eye + Multi Tablet) 1 Each Tablet, 1 EACH PO DAILY, TAB 05/19/18 Amlodipine Besylate* (Norvasc*) 10 Mg Tablet, 10 MG PO DAILY, TAB 05/19/18 Hydrocodone/Acetaminophen ([place] 5-325 Tablet) 1 Each Tablet, 1 EACH PO Q8H for FOR PAIN -04/13, TAB 05/19/18 Naproxen* (Naproxen*) 375 Mg Tablet, 375 MG PO Q8H, TAB 05/19/18 Multivitamin with Minerals (Multivitamins with Minerals) 1 Each Tablet, 1 EACH PO DAILY, TAB 05/19/18 Magnesium Hydroxide* (Milk Of Magnesia*) 400 Mg/5 Ml Oral.susp, 30 ML PO Q24H PRN for NEEDED, ML 05/19/18 Metformin Hcl* (Metformin Hcl*) 500 Mg Tablet, 500 MG PO WITH BREAKFAST DINNE, #60 TAB 05/19/18 Magnesium Oxide* (Magnesium Oxide*) 400 Mg Tablet, 400 MG PO DAILY, TAB 05/19/18 Losartan Potassium* (Losartan Potassium*) 50 Mg Tablet, 50 MG PO BID, TAB HOLD IF SBP BELOW 110 OR AP BELOW 60 05/19/18 Loratadine* (Loratadine*) 10 Mg Tablet, 10 MG PO DAILY, #30 TAB 05/19/18 Atorvastatin* (Atorvastatin*) 80 Mg Tablet, 80 MG PO QHS, #30 TAB 05/19/18 Levetiracetam* (Keppra*) 750 Mg Tablet, 750 MG PO BID, TAB 05/19/18 Hydrochlorothiazide* (Hydrochlorothiazide*) 12.5 Mg Tablet, 12.5 MG PO DAILY, #30 TAB HOLD IF SBP BELOW 110 OR AP BELOW 60 05/19/18 Dextrose (Glucose Gel) 38 Gm Gel..gram., 15 GM PO NEEDED 05/19/18 Gabapentin* (Gabapentin*) 100 Mg Capsule, 100 MG PO Q12H, #90 CAP 05/19/18 Fluticasone Propionate (Flonase Allergy Relief) 9.9 Ml [place].susp, 1 SPRAY NASAL BID, #1 BOTTLE TO EACH NOSTRIL 05/19/18 Na Phos,M-B/Na Phos,Di-Ba (Fleet Enema Extra) 230 Ml Enema, 1 APPLIC RC Q2D PRN for NEEDED, ENEMA 05/19/18 Ferrous Sulfate* (Ferrous Sulfate*) 325 Mg Tabec, 325 MG PO DAILY, TAB 05/19/18 Bisacodyl* (Bisacodyl*) 10 Mg Supp, 10 MG [place] Q24H PRN for NEEDED, SUPP 05/19/18 Cranberry Extract (Cranberry) 425 Mg Capsule, 425 MG PO BID, CAP 05/19/18 Carvedilol* (Carvedilol*) 6.25 Mg Tablet, 6.25 MG PO BID, #60 TAB HOLD IF SBP BELOW 110 OR AP BELOW 60 05/19/18 Diphenhydramine Hcl* (Benadryl*) 25 Mg Cap, 25 MG PO Q6H PRN for ITCHING, CAP 05/19/18 Cholecalciferol* (Vitamin D3*) 1,000 Unit Tablet, 1000 UNIT PO BID, TAB 05/19/18 Ascorbate Calcium (Vitamin C) 500 Mg Tablet, 500 MG PO DAILY, TAB 05/19/18 Cran/Vitc/Mannose/Inulin/Brom (Uti-Stat Liquid) 3,875 Mg/30 Ml Liquid, 30 ML PO BID 05/19/18 Aspirin* (Aspirin* EC) 81 Mg Tablet.dr, 81 MG PO DAILY, TAB 05/19/18 Dextran 70/Hypromellose (Artificial Tears) 1 Each Droperette, 1 EACH OP QID 05/19/18 Medications Current Medications Sodium Chloride 1,000 ml @ 100 mls/hr Q10H IV Last administered on 10/18/18at 12:57; Admin Dose 100 MLS/HR; Start 10/18/18 at 08:30 Pantoprazole 80 mg/Sodium Chloride 100 ml @ 10 mls/hr Q10H IV Last administered on 10/18/18at 15:53; Admin Dose 10 MLS/HR; Start 10/18/18 at 09:00 Ondansetron HCl (Zofran Inj) 4 mg Q4H PRN IV NAUSEA AND/OR VOMITING; Start 10/18/18 at 08:30 Hydralazine HCl (Apresoline) 20 mg Q6H PRN IV sbp>160,dbp>95; Start 10/18/18 at 08:30 Insulin Aspart (Novolog Insulin Pen) NOVOLOG *MILD* ALGORITHM WITH MEALS BEDTIME SC ; Start 10/18/18 at 11:30 Allergies: Coded Allergies: Penicillins (Unverified Allergy, Severe, ITCHING, RASH, HIVES, 05/19/18) KE PÉREZ SPOKE W/ PT - PT SELF REPORTS ITCHING, RASH, HIVES W/ PCN has tolerated cefazolin and ceftriaxone in January and February 2017 ertapenem (Unverified Allergy, Unknown, 05/19/18) levofloxacin (Verified Adverse Reaction, Severe, arrhythmia, 05/19/18) 02/24 [facility] admission - one episode of non sustained vtach possibly 2/2 fluoroquinolone Family History Significant Family History: no pertinent family hx Social History Alcohol Use: none Smoking Status: Never smoker Drug Use: none Exam/Review of Systems Vital Signs Vitals Vital Signs Date Temp Pulse Resp B/P (MAP) Pulse Ox O2 O2 Flow FiO2 Time Delivery Rate 10/18/18 98.0 94 22 131/60 98 Room Air 16:00 (83) 10/18/18 6.0 10:21 Exam Constitutional: alert, oriented (Person and place, no apparent distress, family bedside) Head: normocephalic Respiratory: other (Coarse breath sounds bilaterally, no wheezing) Cardiovascular: regular rate and rhythm (S1-S2 heard) Gastrointestinal: soft, non-tender, bowel sounds Extremities: edema (Trace) Labs Result Diagram: 10/18/18 1200 10/18/18 0540 Results 24hrs Laboratory Tests Test 10/18/18 05:40 10/18/18 06:56 10/18/18 12:00 10/18/18 12:55 White Blood Count 14.8 #H Red Blood Count 2.45 #L Hemoglobin 7.8 #L 10.2 #L Hematocrit 24.2 #L 30.7 #L Mean Corpuscular 98.8 Volume Mean Corpuscular 31.8 Hemoglobin Mean Corpuscular 32.2 Hemoglobin Concent Red Cell 11.8 Distribution Width Platelet Count 329 Mean Platelet Volume 10.5 H Immature 0.800 H Granulocytes % Neutrophils % 80.3 H Lymphocytes % 13.8 L Monocytes % 2.2 Eosinophils % 2.4 Basophils % 0.5 Nucleated Red Blood 0.0 Cells % Immature 0.120 H Granulocytes # Neutrophils # 11.8 H Lymphocytes # 2.0 Monocytes # 0.3 Eosinophils # 0.4 Basophils # 0.1 Nucleated Red Blood 0.0 Cells # Prothrombin Time 12.8 Prothrombin Time 1.0 Ratio INR International 0.95 Normalized Ratio Activated 28.4 Partial Thromboplast Time Sodium Level 138 Potassium Level 5.2 H Chloride Level 107 Carbon Dioxide Level 21 Anion Gap 10 Blood Urea Nitrogen 52 H Creatinine 1.19 H Est Glomerular Filtrat Rate mL/min Glucose Level 161 Calcium Level 8.8 Total Bilirubin 0.1 L Direct Bilirubin 0.00 Indirect Bilirubin 0.1 Aspartate Amino 14 L Transf (AST/SGOT) Alanine 13 Aminotransferase (AL T/SGPT) Alkaline Phosphatase 57 Troponin I < 0.012 Total Protein 5.9 L Albumin 3.2 L Globulin 2.70 Albumin/Globulin 1.18 Ratio Stool Occult Blood POSITIVE Bedside Glucose 151 Imaging Imaging ECG with sinus tachycardia 122 bpm, QRS 74 ms, nonspecific STT wave abnormalities Medications Medications Current Medications Sodium Chloride 1,000 ml @ 100 mls/hr Q10H IV Last administered on 10/18/18at 12:57; Admin Dose 100 MLS/HR; Start 10/18/18 at 08:30 Pantoprazole 80 mg/Sodium Chloride 100 ml @ 10 mls/hr Q10H IV Last administered on 10/18/18at 15:53; Admin Dose 10 MLS/HR; Start 10/18/18 at 09:00 Ondansetron HCl (Zofran Inj) 4 mg Q4H PRN IV NAUSEA AND/OR VOMITING; Start 10/18/18 at 08:30 Hydralazine HCl (Apresoline) 20 mg Q6H PRN IV sbp>160,dbp>95; Start 10/18/18 at 08:30 Insulin Aspart (Novolog Insulin Pen) NOVOLOG *MILD* ALGORITHM WITH MEALS BEDTIME SC ; Start 10/18/18 at 11:30 Omega Chinchilla DO Oct 18, 2018 16:38
--- NOTE | 2018-10-18 18:15 | HP ---
DATE OF ADMISSION: 10/18/2018 CHIEF COMPLAINT: Coffee ground emesis. HISTORY OF PRESENT ILLNESS: The patient is a 78-year-old female well known to me. The patient has h istory of hypertension, CVA with left-sided hemiplegia, diabetes, coronary artery disease, cardiomyop athy with EF of 40%, also history of paroxysmal atrial tachycardia and is monitored by Dr. Powell as an outpatient. In fact, the patient was seen by Dr. Powell about 4 days ago and her cardiac status w as stable. The patient also has history of osteoarthritis and had been taking Naprosyn for pain. Th e patient had been on Protonix for more than 1 year. The patient did not have any GI bleed or any GI symptoms and therefore, Protonix was stopped on 09/29/2018. The patient on 10/13/2018 was complaini ng of heartburn and Protonix was resumed at 40 mg per day. The patient also was complaining of mild dysuria and therefore, UA and C and S were sent from shelter facility; however, I do not have results of those studies at this time. The patient this morning woke up with coffee-ground emesis a nd was feeling weak and pale. The patient was immediately sent to [facility] ER fo r further evaluation. The patient was picked up by paramedics. Upon arrival in ER, the patient was noted to have a hemoglobin of 7.8. Her baseline hemoglobin back in 05/2018 was 12.6. The patient wa s diagnosed with acute upper GI bleed and acute blood loss anemia. Dr. Centeno was called by ER physi tye. The patient was taken to GI lab and was noted to have probable duodenal ulcer with large amoun t of clots, no evidence of active bleeding. The patient was started on Protonix drip. The patient w ill be reevaluated in 48 to 72 hours or sooner if there is active bleeding. The patient is being adm itted in ICU for close monitoring. The patient also reported mild abdominal discomfort. No reported chest pain. No reported any new focal weakness. No reported fever or chills. No reported rectal b leed. No reported dizziness or syncope. The patient has left-sided hemiplegia from previous CVA. S he did not have any focal joint swelling. No reported cough. No reported any neurological deficit. REVIEW OF SYSTEMS: A total of 12 systems were reviewed. All pertinent positive and negative finding s have been described in the HPI. PAST MEDICAL HISTORY: As stated above. In addition, the patient has history of seizure disorder whe n she was admitted back in 03/2017. The patient also has history of paroxysmal atrial tachycardia an d has a loop recorder for more than 1 year and is being followed by Dr. Powell's group. The patient also has history of cardiomyopathy with EF of 40% in the past, hypertension and hyperlipidemia. PAST SURGICAL HISTORY: The patient is status post hysterectomy. FAMILY HISTORY: Negative for CAD or diabetes. SOCIAL HISTORY: No smoking or alcohol abuse. PHYSICAL EXAMINATION GENERAL: Revealed the patient to be awake, alert, fairly oriented. VITAL SIGNS: Upon arrival, blood pressure 134/78, pulse is 110, respiration 18, temperature 99.3, O2 saturation 98% on room air. HEENT: No eye discharge or redness. Conjunctivae are pale. Lids are normal. Oropharynx revealed p kylie mucosa. NECK: Supple. No thyromegaly. CHEST: Fairly clear. No use of accessory muscles. CARDIOVASCULAR: S1, S2 normal. No murmur, gallop or rub. ABDOMEN: Soft, nondistended nontender. Bowel sounds present. EXTREMITIES: No edema, clubbing, cyanosis. NEUROLOGIC: The patient is awake, alert, fairly oriented with chronic left-sided hemiplegia. SKIN: Without acute rash or ulcer. LABORATORY DATA: Done in the ER today, WBC 14.8, hemoglobin 7.8, platelet 329. Sodium 138, potassiu m 5.2, BUN 52, creatinine 1.1, glucose 161. AST 14, ALT 13, alkaline phosphatase 57, albumin 3.2, ca lcium 8.8. DIAGNOSTIC DATA: CT of the abdomen and pelvis revealed distention of the duodenum with a large amoun t of dense material in the distal stomach, duodenal wall thickening. IMPRESSION: 1. Upper gastrointestinal bleed due to bleeding duodenal ulcer. The patient will be kept n.p.o. We will leave NG tube in place. The patient had received 80 mg IV Protonix bolus. We will switch her to drip. 2. Recent urinary symptom. I requested an ICU nurse to get urine culture report from [facility]. 3. Cerebrovascular accident. Hold off on antiplatelet or anticoagulation due to active gastrointest inal bleed. 4. Hypertension. We will hold off on oral medication. We will start her on IV hydralazine on p.r.n . basis. 5. Diabetes. We will place patient on sliding scale insulin for now and we will obtain hemoglobin A 1c. As mentioned above, GI consult with Dr. Centeno and cardiac consult with Dr. Powell's group will be obtained. The patient's condition and plan of care were discussed with patient's daughter, Kellie Bourgeois. 6. The patient also has evidence of acute kidney injury which could be due to gastrointestinal blood loss. Stool guaiac is only positive. The patient will be kept in ICU. We will also obtain serial H and H and transfuse as necessary. We will continue to follow. Dictated By: MAGDI BERGERON/NTS Conf#: [id number] DID#: [id number] CC: DASHAWN CENTENO;*EndCC*
--- NOTE | 2018-10-18 20:46 | PAC ---
Date/Time of Note Date/Time of Note DATE: 10/18/18 TIME: 20:46 Post-Anesthesia Notes Post-Anesthesia Note Last documented vital signs Vital Signs Date Temp Pulse Resp B/P (MAP) Pulse Ox O2 O2 Flow FiO2 Time Delivery Rate 10/18/18 97 23 148/67 99 Room Air 18:00 (94) 10/18/18 99.3 16:00 10/18/18 6.0 10:21 Activity: WNL Respiratory function: WNL Cardiovascular function: WNL Mental status: Baseline Pain reasonably controlled: Yes Hydration appropriate: Yes Nausea/Vomiting absent: Yes LIZ MANTILLA MD Oct 18, 2018 20:46
[2018-10-18] MEDS ORDERED: LEVOFLOXACIN 500MG/D5W (PMX) 100 ML IVPB SCH (21:00)
[2018-10-18] MEDS ORDERED: ACETAMINOPHEN 1000MG/100ML IV 100 ML IVPB SCH (21:00)
[2018-10-18] MEDS ORDERED: morphine 2 MG INJ IV PRN (21:00)
[2018-10-18] MEDS: ATORVASTATIN 40 MG TAB PO SCH (21:08)
[2018-10-18] MEDS: CEFTRIAXONE 1 GM/50 ML (PMX) 50 ML IVPB SCH (22:40)
[2018-10-19] VITALS (43 sets, daily range): BP systolic 111–195; BP diastolic 38–150; PULSE 89–122; RESP 15–28
[2018-10-19] MEDS: PANTOPRAZOLE IV 80 MG in SOD CHLORIDE 0.9% 100 ML IV SCH ×2 (01:45→10:15)
[2018-10-19] MEDS ORDERED: ACETAMINOPHEN 1000MG/100ML IV 100 ML IVPB PRN ×2 (03:00→08:00)
[2018-10-19] MEDS ORDERED: DEXTROSE 50% 50 ML SYRINGE IV PRN ×2 (08:30)
[2018-10-19] MEDS ORDERED: GLUCOSE GEL 15 GRAM TUBE BUCCAL PRN (08:30)
[2018-10-19] MEDS ORDERED: GLUCAGON 1 MG INJ IM PRN (08:30)
[2018-10-19] MEDS ORDERED: GLUCOSE GEL 15 GRAM TUBE PO PRN ×2 (08:30)
[2018-10-19] MEDS: INSULIN ASPART [NOVOLOG] 3 ML PEN SC SCH ×4 (08:41→21:11)
[2018-10-19] MEDS: SOD CHLORIDE 0.9% 1,000 ML IV SCH ×2 (12:26→14:30)
--- NOTE | 2018-10-19 12:33 | CONS ---
Assessment/Plan Assessment/Plan Hospital Course (Demo Recall) Upper GI bleed History of CVA Left vertebral artery stenosis Hypertension Cerebral artery disease Diabetes Cardiomyopathy with ejection fraction 40% Paroxysmal atrial fibrillation -Patient with upper GI bleed and thought secondary to NSAID use and Plavix. Patient was on Plavix because of known cerebrovascular disease and history of CVA on previous admissions. This is been stopped at the current time because of acute GI bleed -Patient with paroxysmal atrial fibrillation noted on telemetry and currently sinus rhythm. Given recent GI bleed, cannot tolerate anticoagulation. Would increase dose of beta-katherine. Will start amiodarone to help maintain in sinus rhythm Consultation Date/Type/Reason Admit Date/Time Oct 18, 2018 at 07:52 Initial Consult Date 10/18/18 Type of Consult Cardiology Date/Time of Note DATE: 10/19/18 TIME: 12:30 24 HR Interval Summary Free Text/Dictation Denies chest pain, shortness of breath or palpitations Exam/Review of Systems Vital Signs Vitals Vital Signs Date Temp Pulse Resp B/P (MAP) Pulse Ox O2 O2 Flow FiO2 Time Delivery Rate 10/19/18 99.0 99 22 166/71 100 Room Air 12:00 (102) 10/18/18 6.0 10:21 Intake and Output 10/18/18 10/18/18 10/19/18 1515:00 23:00 07:00 IntakeIntake Total 1410 ml 830 ml 580 ml OutputOutput Total 700 ml 695 ml 470 ml BalanceBalance 710 ml 135 ml 110 ml Exam Constitutional: alert, oriented (No apparent distress) Head: normocephalic Respiratory: other (Coarse breath sounds bilaterally, no wheezing) Cardiovascular: regular rate and rhythm (S1-S2 heard) Gastrointestinal: soft, non-tender, bowel sounds Extremities: edema (Trace) Labs Result Diagram: 10/19/18 1150 10/18/18 0540 Results 24hrs Laboratory Tests Test 10/18/18 12:55 10/18/18 17:36 10/18/18 18:07 10/18/18 20:41 Bedside Glucose 151 155 191 Hemoglobin 9.4 L Hematocrit 27.5 L Test 10/18/18 22:20 10/19/18 00:43 10/19/18 06:49 10/19/18 08:38 Urine Color STRAW Urine Clarity CLEAR Urine pH 5.0 Urine Specific 1.018 [place] Urine Ketones TRACE A Urine Nitrite NEGATIVE Urine Bilirubin NEGATIVE Urine Urobilinogen NEGATIVE Urine Leukocyte 1+ H Esterase Urine Microscopic 1 RBC Urine Microscopic 6 H WBC Urine Hemoglobin NEGATIVE Urine Glucose NEGATIVE Urine Total Protein NEGATIVE Hemoglobin 6.8 #*L 10.6 #L Hematocrit 20.8 #L 32.2 #L Hemoglobin A1c 5.5 Bedside Glucose 163 Test 10/19/18 11:26 10/19/18 11:50 Bedside Glucose 223 H Hemoglobin 9.0 L Hematocrit 26.9 L Medications Medications Current Medications Sodium Chloride 1,000 ml @ 100 mls/hr Q10H IV Last administered on 10/19/18at 12:26; Admin Dose 100 MLS/HR; Start 10/18/18 at 08:30 Pantoprazole 80 mg/Sodium Chloride 100 ml @ 10 mls/hr Q10H IV Last administered on 10/19/18at 10:15; Admin Dose 10 MLS/HR; Start 10/18/18 at 09:00 Ondansetron HCl (Zofran Inj) 4 mg Q4H PRN IV NAUSEA AND/OR VOMITING; Start 10/18/18 at 08:30 Hydralazine HCl (Apresoline) 20 mg Q6H PRN IV sbp>160,dbp>95; Start 10/18/18 at 08:30 Insulin Aspart (Novolog Insulin Pen) NOVOLOG *MILD* ALGORITHM WITH MEALS BEDTIME SC Last administered on 10/19/18at 11:31; Admin Dose 3 UNIT; Start 10/18/18 at 11:30 Atorvastatin Calcium (Lipitor) 40 mg HS PO Last administered on 10/18/18at 21:08; Admin Dose 40 MG; Start 10/18/18 at 21:00 Carvedilol (Coreg) 6.25 mg BID PO Last administered on 10/19/18at 08:39; Admin Dose 6.25 MG; Start 10/18/18 at 21:00 Morphine Sulfate (morphine) 2 mg Q4H PRN IV SEVERE PAIN LEVEL 7-10; Start 10/18/18 at 21:00 Ceftriaxone Sodium 50 ml @ 100 mls/hr Q24H IVPB Last administered on 10/18/18at 22:40; Admin Dose 100 MLS/HR; Start 10/18/18 at 22:00 Acetaminophen 100 ml @ 400 mls/hr Q6H PRN IVPB MILD PAIN LEVEL 1-3; Start 10/19/18 at 08:00; Stop 10/20/18 at 07:59 Miscellaneous Information 1 ea NOTE XX ; Start 10/19/18 at 08:30 Glucose (Glutose) 15 gm Q15M PRN PO DECREASED GLUCOSE; Start 10/19/18 at 08:30 Glucose (Glutose) 22.5 gm Q15M PRN PO DECREASED GLUCOSE; Start 10/19/18 at 08:30 Dextrose (D50w Syringe) 25 ml Q15M PRN IV DECREASED GLUCOSE; Start 10/19/18 at 08:30 Dextrose (D50w Syringe) 50 ml Q15M PRN IV DECREASED GLUCOSE; Start 10/19/18 at 08:30 Glucagon (Glucagen) 1 mg Q15M PRN IM DECREASED GLUCOSE; Start 10/19/18 at 08:30 Glucose (Glutose) 15 gm Q15M PRN BUCCAL DECREASED GLUCOSE; Start 10/19/18 at 08:30 Omega Chinchilla DO Oct 19, 2018 12:32
--- NOTE | 2018-10-19 12:52 | RADRPT ---
Echocardiogram Report Patient Name: GIANA ROBINSCPatient ID: [id number] : 1940 (78y 6m)Study Date: 10/19/2018 8:24:21 AM Gender: FAccession #: [id number] Tech: Tanisha Cruz [facility] Location: [facility] Ref.Physician: OMEGA CHINCHILLA Height(Cm): BSA: Weight(Kg): Quality: Technically Difficult StudyAccount #: Procedures: Echocardiographic Report: Transthoracic echocardiogram with complete 2D, M-Mode, and doppler examination. Indications: Cardiomyopathy. Measurements: 2D/M Mode Doppler Measurement Value Normal Range Measurement Value Normal Range LVIDd 2D 3.9 [ 3.8 - 5.2 ] cm AV Peak John 2.0 [ 100.0 - 170.0 ] cm/sec LVIDs 2D 3.0 [ 2.2 - 3.5 ] cm AV Peak PG 15.0 [ 2.0 - 9.0 ] mmHg LVPWd 2D 1.7 [ 0.6 - 0.9 ] cm LVOT Peak John 1.1 [ 70.0 - 110.0 ] cm/sec IVSd 2D 1.7 [ 0.6 - 0.9 ] cm LVOT Peak PG 5.0 [ 2.0 - 6.0 ] mmHg AoR Diam 2D 3.1 [ 2.3 - 3.1 ] cm MV E Peak John 0.4 [ 60.0 - 130.0 ] cm/sec EDV 2D 66.7 [ 46.0 - 106.0 ] ml MV A Peak John 0.9 [ 100.0 - 120.0 ] cm/sec ESV 2D 35.0 [ 14.0 - 42.0 ] ml MV E/A 0.5 [ 0.8 - 1.5 ] ratio EF 2D 47.5 [ 54.0 - 74.0 ] percent Lat E` John 0.1 [ 10.0 - 15.0 ] cm/sec LA Dimen 2D 2.7 [ 2.7 - 3.8 ] cm Lateral E/E` 7.5 [ 1.0 - 2.0 ] ratio Med E` John 0.1 cm/sec MV E/A 0.5 [ 0.8 - 1.5 ] ratio Findings: Left Ventricle: Normal left ventricular systolic function. Normal left ventricular cavity size. Moderate concentric left ventricular hypertrophy. Ejection fraction is visually estimated at 55 %. Tissue Doppler/Mitral Doppler indices are consistent with impaired relaxation (Stage I diastolic dysfunction). Right Ventricle: Normal right ventricular size. Normal right ventricular systolic function. Left Atrium: The left atrium is normal in size. Right Atrium: The right atrium is normal in size. Mitral Valve: Normal appearance and function of the mitral valve with trace physiologic regurgitation. Aortic Valve: Aortic sclerosis without significant stenosis. Trace aortic valve regurgitation. Tricuspid Valve: Normal appearance and function of the tricuspid valve with trace physiologic regurgitation. Pulmonic Valve: Pulmonic valve not well visualized. Pericardium: Normal pericardium with no significant pericardial effusion. Aorta: Normal aortic root. IVC: Normal size and normal respiratory collapse consistent with normal right atrial pressure. Conclusions: Normal left ventricular systolic function. Normal left ventricular cavity size. Moderate concentric left ventricular hypertrophy. Ejection fraction is visually estimated at 55 %. Tissue Doppler/Mitral Doppler indices are consistent with impaired relaxation (Stage I diastolic dysfunction). Normal right ventricular size. Normal right ventricular systolic function. The left atrium is normal in size. The right atrium is normal in size. No significant valvular stenosis or regurgitation seen. Normal pericardium with no significant pericardial effusion. Electronically Signed By: Omega Chinchilla 2018-10-19 12:51:59 PDT
[2018-10-19] MEDS: AMIODARONE 200 MG TAB PO SCH ×2 (13:08→20:49)
--- NOTE | 2018-10-19 13:12 | PN ---
Date/Time of Note Date/Time of Note DATE: 10/19/18 TIME: 12:46 Assessment/Plan VTE Prophylaxis Risk score (from Nsg)>0 risk: 8 SCD applied (from Nsg): Yes Pharmacological prophylaxis: other (scdsd) Lines/Catheters IV Catheter Type (from Nrsg): Peripheral IV Urinary Cath still in place: Yes Reason Cath still needed: other (indicate) (monitor output) Assessment/Plan Hospital Course Assessment: Upper GI bleeding/hematemesis EGD 10/18/18 Impression: Probable duodenal ulcer with large amounts of clots. No evidence of active bleeding. Limited examination. Clots were not removed as there appears to be no active bleeding. Anemia likely secondary to above. Extensive use of nonsteroidal inflammatory agents. Unclear use of Plavix. Listed but patient denies taking it Status post right hemispheric CVA with left hemiparesis. History of hypertension. History of diabetes mellitus. History of dyslipidemia. Moderate obesity. Plan: Maximize antiulcer therapy Close monitoring H&H and transfuse as necessary. D/c NGT- start clear liquid diet Reevaluate in 48 or sooner if active bleeding. Patient seen in collaboration with Dr. Centeno/Tao Subjective: Course reviewed with nursing staff Patient interviewed and examined All labs, imaging and other results reviewed The patient remain in ICU, NGT in place with 100ml out-put today Pt will likely be transferred out of the ICU today. No c/o abd pain Family at bedside, maintain close observation. Plan to repeat EGD likely Friday PHYSICAL EXAMINATION: GENERAL: Well developed, well nourished, alert & oriented x 3, in no acute distress SKIN: No lesions HEAD: Normocephalic, atraumatic, no tenderness. EYES: Pupils equal reactive to light and accommodation, full extraocular movements, sclera clear, non-icteric, no discharge. EARS/NOSE AND THROAT: Ears normal, nose normal, oropharynx normal, oral membranes well hydrated without lesions. NECK: Supple, no masses, NGT in place CHEST: Inspection within normal limits. CARDIOVASCULAR: Heart: Regular rate and rhythm. RESPIRATORY: Lungs clear to auscultation and percussion, no wheezing, no rubs GASTROINTESTINAL AND LIVER: Abdomen: Soft, diffuse tenderness, mildly distended, no hernias, no masses, no organomegaly, no ascites, no guarding, no rebound tenderness, normoactive bowel sounds. Rectal: Deferred. EXTREMITIES: No cyanosis, clubbing or edema. Result Diagram: 10/19/18 1150 10/18/18 0540 Results 24hrs Laboratory Tests Test 10/18/18 12:55 10/18/18 17:36 10/18/18 18:07 10/18/18 20:41 Bedside Glucose 151 155 191 Hemoglobin 9.4 L Hematocrit 27.5 L Test 10/18/18 22:20 10/19/18 00:43 10/19/18 06:49 10/19/18 08:38 Urine Color STRAW Urine Clarity CLEAR Urine pH 5.0 Urine Specific 1.018 [place] Urine Ketones TRACE A Urine Nitrite NEGATIVE Urine Bilirubin NEGATIVE Urine Urobilinogen NEGATIVE Urine Leukocyte 1+ H Esterase Urine Microscopic 1 RBC Urine Microscopic 6 H WBC Urine Hemoglobin NEGATIVE Urine Glucose NEGATIVE Urine Total Protein NEGATIVE Hemoglobin 6.8 #*L 10.6 #L Hematocrit 20.8 #L 32.2 #L Hemoglobin A1c 5.5 Bedside Glucose 163 Test 10/19/18 11:26 10/19/18 11:50 Bedside Glucose 223 H Hemoglobin 9.0 L Hematocrit 26.9 L Exam/Review of Systems Exam Vitals Vital Signs Date Temp Pulse Resp B/P (MAP) Pulse Ox O2 O2 Flow FiO2 Time Delivery Rate 10/19/18 101 12:00 10/19/18 99.0 22 166/71 100 Room Air 12:00 (102) 10/18/18 6.0 10:21 Intake and Output 10/18/18 10/18/18 10/19/18 1515:00 23:00 07:00 IntakeIntake Total 1410 ml 830 ml 580 ml OutputOutput Total 700 ml 695 ml 470 ml BalanceBalance 710 ml 135 ml 110 ml Results Results 24hrs Laboratory Tests Test 10/18/18 12:55 10/18/18 17:36 10/18/18 18:07 10/18/18 20:41 Bedside Glucose 151 155 191 Hemoglobin 9.4 L Hematocrit 27.5 L Test 10/18/18 22:20 10/19/18 00:43 10/19/18 06:49 10/19/18 08:38 Urine Color STRAW Urine Clarity CLEAR Urine pH 5.0 Urine Specific 1.018 [place] Urine Ketones TRACE A Urine Nitrite NEGATIVE Urine Bilirubin NEGATIVE Urine Urobilinogen NEGATIVE Urine Leukocyte 1+ H Esterase Urine Microscopic 1 RBC Urine Microscopic 6 H WBC Urine Hemoglobin NEGATIVE Urine Glucose NEGATIVE Urine Total Protein NEGATIVE Hemoglobin 6.8 #*L 10.6 #L Hematocrit 20.8 #L 32.2 #L Hemoglobin A1c 5.5 Bedside Glucose 163 Test 10/19/18 11:26 10/19/18 11:50 Bedside Glucose 223 H Hemoglobin 9.0 L Hematocrit 26.9 L Medications Medication Current Medications Sodium Chloride 1,000 ml @ 100 mls/hr Q10H IV Last administered on 10/19/18at 12:26; Admin Dose 100 MLS/HR; Start 10/18/18 at 08:30 Pantoprazole 80 mg/Sodium Chloride 100 ml @ 10 mls/hr Q10H IV Last administered on 10/19/18at 10:15; Admin Dose 10 MLS/HR; Start 10/18/18 at 09:00 Ondansetron HCl (Zofran Inj) 4 mg Q4H PRN IV NAUSEA AND/OR VOMITING; Start 10/18/18 at 08:30 Hydralazine HCl (Apresoline) 20 mg Q6H PRN IV sbp>160,dbp>95; Start 10/18/18 at 08:30 Insulin Aspart (Novolog Insulin Pen) NOVOLOG *MILD* ALGORITHM WITH MEALS BEDTIME SC Last administered on 10/19/18at 11:31; Admin Dose 3 UNIT; Start 10/18/18 at 11:30 Atorvastatin Calcium (Lipitor) 40 mg HS PO Last administered on 10/18/18at 21:08; Admin Dose 40 MG; Start 10/18/18 at 21:00 Morphine Sulfate (morphine) 2 mg Q4H PRN IV SEVERE PAIN LEVEL 7-10; Start 10/18/18 at 21:00 Ceftriaxone Sodium 50 ml @ 100 mls/hr Q24H IVPB Last administered on 10/18/18at 22:40; Admin Dose 100 MLS/HR; Start 10/18/18 at 22:00 Acetaminophen 100 ml @ 400 mls/hr Q6H PRN IVPB MILD PAIN LEVEL 1-3; Start 10/19/18 at 08:00; Stop 10/20/18 at 07:59 Miscellaneous Information 1 ea NOTE XX ; Start 10/19/18 at 08:30 Glucose (Glutose) 15 gm Q15M PRN PO DECREASED GLUCOSE; Start 10/19/18 at 08:30 Glucose (Glutose) 22.5 gm Q15M PRN PO DECREASED GLUCOSE; Start 10/19/18 at 08:30 Dextrose (D50w Syringe) 25 ml Q15M PRN IV DECREASED GLUCOSE; Start 10/19/18 at 08:30 Dextrose (D50w Syringe) 50 ml Q15M PRN IV DECREASED GLUCOSE; Start 10/19/18 at 08:30 Glucagon (Glucagen) 1 mg Q15M PRN IM DECREASED GLUCOSE; Start 10/19/18 at 08:30 Glucose (Glutose) 15 gm Q15M PRN BUCCAL DECREASED GLUCOSE; Start 10/19/18 at 08:30 Carvedilol (Coreg) 6.25 mg Q8 PO ; Start 10/19/18 at 14:00 Amiodarone HCl (Cordarone) 200 mg BID PO ; Start 10/19/18 at 12:30 ALPHONSO BRAND Oct 19, 2018 12:58
--- NOTE | 2018-10-19 18:11 | PN ---
Date/Time of Note Date/Time of Note DATE: 10/19/18 TIME: 18:11 Assessment/Plan VTE Prophylaxis Risk score (from Ns)>0 risk: 8 SCD applied (from [facility]): Yes Pharmacological prophylaxis: NA/contraindicated Pharm contraindication: bleeding Lines/Catheters IV Catheter Type (from [facility]): Peripheral IV Urinary Cath still in place: Yes Reason Cath still needed: urinary retention Assessment/Plan Hospital Course Patient remains tachycardic, episodes of bigeminy and trigeminy earlier, hemoglobin dropped to 6.8 at midnight status post 2 units of blood transfusion continue to monitor H&H every 6 hours. Continue to monitor in ICU. Assessment/Plan - Upper gastrointestinal bleed due to bleeding duodenal ulcer. Continue Protonix drip. Dr. Centeno is following in GI. S/p EGD. - Anemia of acute blood loss, s/p blood transfusion, monitor H&H Q 6hr. - UTI due to E. coli recently diagnosed at [facility]. Continue Rocephin. - Cerebrovascular accident with left hemiparesis. Hold off on antiplatelet or anticoagulation due to active gastrointestinal bleed. - Hypertension. Continue IV hydralazine on p.r.n. basis. - PAF - Cardiomyopathy wit EF of 40%. Critical care time spent 30 minutes. Further recommendations based on clinical coarse. Plan of care discussed with Dr Cruz. Result Diagram: 10/19/18 1150 10/18/18 0540 Results 24hrs Laboratory Tests Test 10/18/18 20:41 10/18/18 22:20 10/19/18 00:43 10/19/18 06:49 Bedside Glucose 191 Urine Color STRAW Urine Clarity CLEAR Urine pH 5.0 Urine Specific 1.018 [place] Urine Ketones TRACE A Urine Nitrite NEGATIVE Urine Bilirubin NEGATIVE Urine Urobilinogen NEGATIVE Urine Leukocyte 1+ H Esterase Urine Microscopic 1 RBC Urine Microscopic 6 H WBC Urine Hemoglobin NEGATIVE Urine Glucose NEGATIVE Urine Total Protein NEGATIVE Hemoglobin 6.8 #*L 10.6 #L Hematocrit 20.8 #L 32.2 #L Hemoglobin A1c 5.5 Test 10/19/18 08:38 10/19/18 11:26 10/19/18 11:50 10/19/18 17:28 Bedside Glucose 163 223 H 195 Hemoglobin 9.0 L Hematocrit 26.9 L Exam/Review of Systems Exam Vitals Vital Signs Date Temp Pulse Resp B/P (MAP) Pulse Ox O2 O2 Flow FiO2 Time Delivery Rate 10/19/18 98.7 118 23 121/74 100 Room Air 18:00 (90) 10/18/18 6.0 10:21 Intake and Output 10/18/18 10/18/18 10/19/18 1515:00 23:00 07:00 IntakeIntake Total 1410 ml 830 ml 580 ml OutputOutput Total 700 ml 695 ml 470 ml BalanceBalance 710 ml 135 ml 110 ml Constitutional: alert, oriented Neck: supple Respiratory: clear to auscultation Cardiovascular: regular rate and rhythm Gastrointestinal: soft, tender Extremities: normal pulses Results Results 24hrs Laboratory Tests Test 10/18/18 20:41 10/18/18 22:20 10/19/18 00:43 10/19/18 06:49 Bedside Glucose 191 Urine Color STRAW Urine Clarity CLEAR Urine pH 5.0 Urine Specific 1.018 [place] Urine Ketones TRACE A Urine Nitrite NEGATIVE Urine Bilirubin NEGATIVE Urine Urobilinogen NEGATIVE Urine Leukocyte 1+ H Esterase Urine Microscopic 1 RBC Urine Microscopic 6 H WBC Urine Hemoglobin NEGATIVE Urine Glucose NEGATIVE Urine Total Protein NEGATIVE Hemoglobin 6.8 #*L 10.6 #L Hematocrit 20.8 #L 32.2 #L Hemoglobin A1c 5.5 Test 10/19/18 08:38 10/19/18 11:26 10/19/18 11:50 10/19/18 17:28 Bedside Glucose 163 223 H 195 Hemoglobin 9.0 L Hematocrit 26.9 L Medications Medication Current Medications Sodium Chloride 1,000 ml @ 100 mls/hr Q10H IV Last administered on 10/19/18at 12:26; Admin Dose 100 MLS/HR; Start 10/18/18 at 08:30 Pantoprazole 80 mg/Sodium Chloride 100 ml @ 10 mls/hr Q10H IV Last administered on 10/19/18at 10:15; Admin Dose 10 MLS/HR; Start 10/18/18 at 09:00 Ondansetron HCl (Zofran Inj) 4 mg Q4H PRN IV NAUSEA AND/OR VOMITING; Start 10/18/18 at 08:30 Hydralazine HCl (Apresoline) 20 mg Q6H PRN IV sbp>160,dbp>95; Start 10/18/18 at 08:30 Insulin Aspart (Novolog Insulin Pen) NOVOLOG *MILD* ALGORITHM WITH MEALS BEDTIME SC Last administered on 10/19/18at 17:31; Admin Dose 2 UNIT; Start 10/18/18 at 11:30 Atorvastatin Calcium (Lipitor) 40 mg HS PO Last administered on 10/18/18at 21:08; Admin Dose 40 MG; Start 10/18/18 at 21:00 Morphine Sulfate (morphine) 2 mg Q4H PRN IV SEVERE PAIN LEVEL 7-10; Start 10/18/18 at 21:00 Ceftriaxone Sodium 50 ml @ 100 mls/hr Q24H IVPB Last administered on 10/18/18at 22:40; Admin Dose 100 MLS/HR; Start 10/18/18 at 22:00 Acetaminophen 100 ml @ 400 mls/hr Q6H PRN IVPB MILD PAIN LEVEL 1-3; Start 10/19/18 at 08:00; Stop 10/20/18 at 07:59 Miscellaneous Information 1 ea NOTE XX ; Start 10/19/18 at 08:30 Glucose (Glutose) 15 gm Q15M PRN PO DECREASED GLUCOSE; Start 10/19/18 at 08:30 Glucose (Glutose) 22.5 gm Q15M PRN PO DECREASED GLUCOSE; Start 10/19/18 at 08:30 Dextrose (D50w Syringe) 25 ml Q15M PRN IV DECREASED GLUCOSE; Start 10/19/18 at 08:30 Dextrose (D50w Syringe) 50 ml Q15M PRN IV DECREASED GLUCOSE; Start 10/19/18 at 08:30 Glucagon (Glucagen) 1 mg Q15M PRN IM DECREASED GLUCOSE; Start 10/19/18 at 08:30 Glucose (Glutose) 15 gm Q15M PRN BUCCAL DECREASED GLUCOSE; Start 10/19/18 at 08:30 Carvedilol (Coreg) 6.25 mg Q8 PO Last administered on 10/19/18at 13:10; Admin Dose 6.25 MG; Start 10/19/18 at 14:00 Amiodarone HCl (Cordarone) 200 mg BID PO Last administered on 10/19/18at 13:08; Admin Dose 200 MG; Start 10/19/18 at 12:30 JANET FOOTE Oct 19, 2018 18:11
[2018-10-19] MEDS: ATORVASTATIN 40 MG TAB PO SCH (20:49)
[2018-10-19] MEDS: CEFTRIAXONE 1 GM/50 ML (PMX) 50 ML IVPB SCH (21:06)
[2018-10-20] VITALS (34 sets, daily range): BP systolic 111–156; BP diastolic 39–81; PULSE 84–120; RESP 11–26
[2018-10-20] MEDS: PANTOPRAZOLE IV 80 MG in SOD CHLORIDE 0.9% 100 ML IV SCH ×3 (00:28→21:21)
[2018-10-20] MEDS: SOD CHLORIDE 0.9% 1,000 ML IV SCH ×3 (00:32→19:50)
[2018-10-20] MEDS: INSULIN ASPART [NOVOLOG] 3 ML PEN SC SCH ×4 (07:55→21:00)
[2018-10-20] MEDS: AMIODARONE 200 MG TAB PO SCH ×2 (08:20→21:17)
--- NOTE | 2018-10-20 13:52 | PN ---
Date/Time of Note Date/Time of Note DATE: 10/20/18 TIME: 13:45 Assessment/Plan VTE Prophylaxis Risk score (from Nsg)>0 risk: 6 SCD applied (from Nsg): Yes Pharmacological prophylaxis: other (scds) Lines/Catheters IV Catheter Type (from [facility]): Peripheral IV Urinary Cath still in place: Yes Reason Cath still needed: other (indicate) (monitor output) Assessment/Plan Hospital Course Assessment: Upper GI bleeding/hematemesis EGD 10/18/18 Impression: Probable duodenal ulcer with large amounts of clots. No evidence of active bleeding. Limited examination. Clots were not removed as there appears to be no active bleeding. Anemia likely secondary to above. Extensive use of nonsteroidal inflammatory agents. Unclear use of Plavix. Listed but patient denies taking it Status post right hemispheric CVA with left hemiparesis. History of hypertension. History of diabetes mellitus. History of dyslipidemia. Moderate obesity. Plan: Maximize antiulcer therapy- Continue PPI gtt- Close monitoring H&H and transfuse as necessary. EGD tomorrow Patient seen in collaboration with Dr. Centeno/Tao Subjective: Course reviewed with nursing staff Patient interviewed and examined All labs, imaging and other results reviewed Pt continues to have melena- with a drop in hgb 6.2 she is s/p 2 units with an increase to 11's questionable if 6.2 was a true reading. We will continue to monitor Discussed plan for EGD tomorrow with patient and patient's daughter PHYSICAL EXAMINATION: GENERAL: Well developed, well nourished, alert & oriented SKIN: No lesions HEAD: Normocephalic, atraumatic, no tenderness. EYES: Pupils equal reactive to light and accommodation, full extraocular movements, sclera clear, non-icteric, no discharge. EARS/NOSE AND THROAT: Ears normal, nose normal, oropharynx normal, oral membranes well hydrated without lesions. NECK: Supple, no masses, NGT in place CHEST: Inspection within normal limits. CARDIOVASCULAR: Heart: Regular rate and rhythm. RESPIRATORY: Lungs clear to auscultation GASTROINTESTINAL AND LIVER: Abdomen: Soft, diffuse tenderness, mildly distended, no hernias, no masses, no organomegaly, no ascites, no guarding, no rebound tenderness, normoactive bowel sounds. Rectal: Deferred. EXTREMITIES: No cyanosis, clubbing or edema. Result Diagram: 10/20/18 1207 10/20/18 0811 Results 24hrs Laboratory Tests Test 10/19/18 17:28 10/19/18 17:55 10/19/18 21:09 10/20/18 00:36 Bedside Glucose 195 292 H Hemoglobin 7.6 L 6.2 *L Hematocrit 22.6 L 18.9 L Test 10/20/18 04:59 10/20/18 07:44 10/20/18 08:11 10/20/18 12:06 Lab Scanned BLOOD TRANSFUSIO Report N Bedside Glucose 174 178 Hemoglobin 11.4 #L Hematocrit 34.6 #L Sodium Level 146 H Potassium Level 4.9 Chloride Level 118 H Carbon Dioxide 17 L Level Anion Gap 11 Blood Urea 95 H Nitrogen Creatinine 1.42 H Est Glomerular Filtrat Rate mL/min Glucose Level 178 Calcium Level 7.6 L Magnesium Level 1.9 Test 10/20/18 12:07 Hemoglobin 10.6 L Hematocrit 32.1 L Exam/Review of Systems Exam Vitals Vital Signs Date Temp Pulse Resp B/P (MAP) Pulse Ox O2 O2 Flow FiO2 Time Delivery Rate 10/20/18 98.8 98 21 119/74 99 Room Air 12:00 (89) 10/18/18 6.0 10:21 Intake and Output 10/19/18 10/19/18 10/20/18 1515:00 23:00 07:00 IntakeIntake Total 640 ml 460 ml 750 ml OutputOutput Total 650 ml 650 ml 310 ml BalanceBalance -10 ml -190 ml 440 ml Results Results 24hrs Laboratory Tests Test 10/19/18 17:28 10/19/18 17:55 10/19/18 21:09 10/20/18 00:36 Bedside Glucose 195 292 H Hemoglobin 7.6 L 6.2 *L Hematocrit 22.6 L 18.9 L Test 10/20/18 04:59 10/20/18 07:44 10/20/18 08:11 10/20/18 12:06 Lab Scanned BLOOD TRANSFUSIO Report N Bedside Glucose 174 178 Hemoglobin 11.4 #L Hematocrit 34.6 #L Sodium Level 146 H Potassium Level 4.9 Chloride Level 118 H Carbon Dioxide 17 L Level Anion Gap 11 Blood Urea 95 H Nitrogen Creatinine 1.42 H Est Glomerular Filtrat Rate mL/min Glucose Level 178 Calcium Level 7.6 L Magnesium Level 1.9 Test 10/20/18 12:07 Hemoglobin 10.6 L Hematocrit 32.1 L Medications Medication Current Medications Sodium Chloride 1,000 ml @ 100 mls/hr Q10H IV Last administered on 10/20/18at 00:32; Admin Dose 100 MLS/HR; Start 10/18/18 at 08:30 Pantoprazole 80 mg/Sodium Chloride 100 ml @ 10 mls/hr Q10H IV Last administered on 10/20/18at 10:45; Admin Dose 10 MLS/HR; Start 10/18/18 at 09:00 Ondansetron HCl (Zofran Inj) 4 mg Q4H PRN IV NAUSEA AND/OR VOMITING Last administered on 10/19/18at 21:53; Admin Dose 4 MG; Start 10/18/18 at 08:30 Hydralazine HCl (Apresoline) 20 mg Q6H PRN IV sbp>160,dbp>95; Start 10/18/18 at 08:30 Insulin Aspart (Novolog Insulin Pen) NOVOLOG *MILD* ALGORITHM WITH MEALS BEDTIME SC Last administered on 10/20/18at 12:10; Admin Dose 1 UNIT; Start 10/18/18 at 11:30 Atorvastatin Calcium (Lipitor) 40 mg HS PO Last administered on 10/19/18at 20:49; Admin Dose 40 MG; Start 10/18/18 at 21:00 Morphine Sulfate (morphine) 2 mg Q4H PRN IV SEVERE PAIN LEVEL 7-10; Start 10/18/18 at 21:00 Ceftriaxone Sodium 50 ml @ 100 mls/hr Q24H IVPB Last administered on 10/19/18at 21:06; Admin Dose 100 MLS/HR; Start 10/18/18 at 22:00 Miscellaneous Information 1 ea NOTE XX ; Start 10/19/18 at 08:30 Glucose (Glutose) 15 gm Q15M PRN PO DECREASED GLUCOSE; Start 10/19/18 at 08:30 Glucose (Glutose) 22.5 gm Q15M PRN PO DECREASED GLUCOSE; Start 10/19/18 at 08:30 Dextrose (D50w Syringe) 25 ml Q15M PRN IV DECREASED GLUCOSE; Start 10/19/18 at 08:30 Dextrose (D50w Syringe) 50 ml Q15M PRN IV DECREASED GLUCOSE; Start 10/19/18 at 08:30 Glucagon (Glucagen) 1 mg Q15M PRN IM DECREASED GLUCOSE; Start 10/19/18 at 08:30 Glucose (Glutose) 15 gm Q15M PRN BUCCAL DECREASED GLUCOSE; Start 10/19/18 at 08:30 Carvedilol (Coreg) 6.25 mg Q8 PO Last administered on 10/20/18at 05:55; Admin Dose 6.25 MG; Start 10/19/18 at 14:00 Amiodarone HCl (Cordarone) 200 mg BID PO Last administered on 10/20/18at 08:20; Admin Dose 200 MG; Start 10/19/18 at 12:30 ALPHONSO BRAND Oct 20, 2018 13:52
--- NOTE | 2018-10-20 16:02 | CONS ---
Assessment/Plan Assessment/Plan Hospital Course (Demo Recall) Upper GI bleed History of CVA Left vertebral artery stenosis Hypertension Cerebral artery disease Diabetes History of cardiomyopathy, current echocardiogram with ejection fraction 55% Paroxysmal atrial fibrillation -Patient with upper GI bleed and thought secondary to NSAID use and Plavix. Patient was on Plavix because of known cerebrovascular disease and history of CVA on previous admissions. This is been stopped at the current time because of acute GI bleed -Patient with paroxysmal atrial fibrillation noted on telemetry and currently sinus rhythm. Given recent GI bleed, cannot tolerate anticoagulation. Continue beta-katherine and amiodarone as tolerated. Consultation Date/Type/Reason Admit Date/Time Oct 18, 2018 at 07:52 Initial Consult Date 10/18/18 Type of Consult Cardiology Date/Time of Note DATE: 10/20/18 TIME: 16:00 24 HR Interval Summary Free Text/Dictation Denies chest pain, shortness of breath or palpitations Exam/Review of Systems Vital Signs Vitals Vital Signs Date Temp Pulse Resp B/P (MAP) Pulse Ox O2 O2 Flow FiO2 Time Delivery Rate 10/20/18 96 17 122/49 99 Room Air 13:00 (73) 10/20/18 98.8 12:00 10/18/18 6.0 10:21 Intake and Output 10/19/18 10/19/18 10/20/18 1515:00 23:00 07:00 IntakeIntake Total 640 ml 460 ml 750 ml OutputOutput Total 650 ml 650 ml 310 ml BalanceBalance -10 ml -190 ml 440 ml Exam Constitutional: alert (No apparent distress, following commands, family be dside) Head: normocephalic Respiratory: clear to auscultation, normal air movement Cardiovascular: regular rate and rhythm (S1-S2 heard) Gastrointestinal: soft, non-tender, bowel sounds Extremities: edema Labs Result Diagram: 10/20/18 1207 10/20/18 0811 Results 24hrs Laboratory Tests Test 10/19/18 17:28 10/19/18 17:55 10/19/18 21:09 10/20/18 00:36 Bedside Glucose 195 292 H Hemoglobin 7.6 L 6.2 *L Hematocrit 22.6 L 18.9 L Test 10/20/18 04:59 10/20/18 07:44 10/20/18 08:11 10/20/18 12:06 Lab Scanned BLOOD TRANSFUSIO Report N Bedside Glucose 174 178 Hemoglobin 11.4 #L Hematocrit 34.6 #L Sodium Level 146 H Potassium Level 4.9 Chloride Level 118 H Carbon Dioxide 17 L Level Anion Gap 11 Blood Urea 95 H Nitrogen Creatinine 1.42 H Est Glomerular Filtrat Rate mL/min Glucose Level 178 Calcium Level 7.6 L Magnesium Level 1.9 Test 10/20/18 12:07 Hemoglobin 10.6 L Hematocrit 32.1 L Medications Medications Current Medications Sodium Chloride 1,000 ml @ 100 mls/hr Q10H IV Last administered on 10/20/18at 00:32; Admin Dose 100 MLS/HR; Start 10/18/18 at 08:30 Pantoprazole 80 mg/Sodium Chloride 100 ml @ 10 mls/hr Q10H IV Last administe red on 10/20/18at 10:45; Admin Dose 10 MLS/HR; Start 10/18/18 at 09:00 Ondansetron HCl (Zofran Inj) 4 mg Q4H PRN IV NAUSEA AND/OR VOMITING Last administered on 10/19/18at 21:53; Admin Dose 4 MG; Start 10/18/18 at 08:30 Hydralazine HCl (Apresoline) 20 mg Q6H PRN IV sbp>160,dbp>95; Start 10/18/18 at 08:30 Insulin Aspart (Novolog Insulin Pen) NOVOLOG *MILD* ALGORITHM WITH MEALS BEDTIME SC Last administered on 10/20/18at 12:10; Admin Dose 1 UNIT; Start 10/18/18 at 11:30 Atorvastatin Calcium (Lipitor) 40 mg HS PO Last administered on 10/19/18at 20:49; Admin Dose 40 MG; Start 10/18/18 at 21:00 Morphine Sulfate (morphine) 2 mg Q4H PRN IV SEVERE PAIN LEVEL 7-10; Start 10/18/18 at 21:00 Ceftriaxone Sodium 50 ml @ 100 mls/hr Q24H IVPB Last administered on 10/19/18at 21:06; Admin Dose 100 MLS/HR; Start 10/18/18 at 22:00 Miscellaneous Information 1 ea NOTE XX ; Start 10/19/18 at 08:30 Glucose (Glutose) 15 gm Q15M PRN PO DECREASED GLUCOSE; Start 10/19/18 at 08:30 Glucose (Glutose) 22.5 gm Q15M PRN PO DECREASED GLUCOSE; Start 10/19/18 at 08:30 Dextrose (D50w Syringe) 25 ml Q15M PRN IV DECREASED GLUCOSE; Start 10/19/18 at 08:30 Dextrose (D50w Syringe) 50 ml Q15M PRN IV DECREASED GLUCOSE; Start 10/19/18 at 08:30 Glucagon (Glucagen) 1 mg Q15M PRN IM DECREASED GLUCOSE; Start 10/19/18 at 08:30 Glucose (Glutose) 15 gm Q15M PRN BUCCAL DECREASED GLUCOSE; Start 10/19/18 at 08:30 Carvedilol (Coreg) 6.25 mg Q8 PO Last administered on 10/20/18at 15:35; Admin Dose 6.25 MG; Start 10/19/18 at 14:00 Amiodarone HCl (Cordarone) 200 mg BID PO Last administered on 10/20/18at 08:20; Admin Dose 200 MG; Start 10/19/18 at 12:30 Omega Chinchilla DO Oct 20, 2018 16:02
--- NOTE | 2018-10-20 18:07 | PREAC ---
Date/Time of Note Date/Time of Note DATE: 10/20/18 TIME: 18:06 Anesthesia Eval and Record Evaluation Time Pre-Procedure Interview DATE: 10/20/18 TIME: 18:06 Age 78 Sex female NPO: 8 hrs Preoperative diagnosis Upper GI bleeding/hematemesis Planned procedure EGD Past Medical History Past Medical History: Includes Cardio: HTN, Dyslipidemia, CAD Endo: Diabetes Pulm: COPD Neuro: Peripheral neuropathy GI: GERD Surgery & Anesthesia Issues No known issue Meds Anticoagulation: No Beta Dusty within 24 hr: No Reason Beta Dusty not given: Pt. not on B-Dusty Reported Medications Acetaminophen* (Tylenol*) 325 Mg Tablet, 650 MG PO Q4H PRN for MILD PAIN LEVEL 1-3, TAB 05/19/18 Linagliptin (TRADJENTA) 5 Mg Tablet, 5 MG PO DAILY, TAB 05/19/18 Sennosides* (Senna Lax*) 8.6 Mg Tablet, 1 TAB PO DAILY, TAB 05/19/18 Pantoprazole* (Protonix*) 40 Mg Tablet.dr, 40 MG PO DAILY, TAB 05/19/18 Potassium Chloride* (K-Dur*) 20 Meq Tab.prt.sr, 40 MEQ PO DAILY, TAB.SA 05/19/18 Clopidogrel Bisulfate* (Clopidogrel Bisulfate*) 75 Mg Tablet, 75 MG PO DAILY, #30 TAB 05/19/18 Mv-Mn/FA/Vit K/Lycop/Lut/Zeaxa (Ocuvite Eye + Multi Tablet) 1 Each Tablet, 1 EACH PO DAILY, TAB 05/19/18 Amlodipine Besylate* (Norvasc*) 10 Mg Tablet, 10 MG PO DAILY, TAB 05/19/18 Hydrocodone/Acetaminophen ([place] 5-325 Tablet) 1 Each Tablet, 1 EACH PO Q8H for FOR PAIN 7-04/13, TAB 05/19/18 Naproxen* (Naproxen*) 375 Mg Tablet, 375 MG PO Q8H, TAB 05/19/18 Multivitamin with Minerals (Multivitamins with Minerals) 1 Each Tablet, 1 EACH PO DAILY, TAB 05/19/18 Magnesium Hydroxide* (Milk Of Magnesia*) 400 Mg/5 Ml Oral.susp, 30 ML PO Q24H PRN for NEEDED, ML 05/19/18 Metformin Hcl* (Metformin Hcl*) 500 Mg Tablet, 500 MG PO WITH BREAKFAST DINNE, #60 TAB 05/19/18 Magnesium Oxide* (Magnesium Oxide*) 400 Mg Tablet, 400 MG PO DAILY, TAB 05/19/18 Losartan Potassium* (Losartan Potassium*) 50 Mg Tablet, 50 MG PO BID, TAB HOLD IF SBP BELOW 110 OR AP BELOW 60 05/19/18 Loratadine* (Loratadine*) 10 Mg Tablet, 10 MG PO DAILY, #30 TAB 05/19/18 Atorvastatin* (Atorvastatin*) 80 Mg Tablet, 80 MG PO QHS, #30 TAB 05/19/18 Levetiracetam* (Keppra*) 750 Mg Tablet, 750 MG PO BID, TAB 05/19/18 Hydrochlorothiazide* (Hydrochlorothiazide*) 12.5 Mg Tablet, 12.5 MG PO DAILY, #30 TAB HOLD IF SBP BELOW 110 OR AP BELOW 60 05/19/18 Dextrose (Glucose Gel) 38 Gm Gel..gram., 15 GM PO NEEDED 05/19/18 Gabapentin* (Gabapentin*) 100 Mg Capsule, 100 MG PO Q12H, #90 CAP 05/19/18 Fluticasone Propionate (Flonase Allergy Relief) 9.9 Ml [facility].susp, 1 SPRAY NASAL BID, #1 BOTTLE TO EACH NOSTRIL 05/19/18 Na Phos,M-B/Na Phos,Di-Ba (Fleet Enema Extra) 230 Ml Enema, 1 APPLIC RC Q2D PRN for NEEDED, ENEMA 05/19/18 Ferrous Sulfate* (Ferrous Sulfate*) 325 Mg Tabec, 325 MG PO DAILY, TAB 05/19/18 Bisacodyl* (Bisacodyl*) 10 Mg Supp, 10 MG DE Q24H PRN for NEEDED, SUPP 05/19/18 Cranberry Extract (Cranberry) 425 Mg Capsule, 425 MG PO BID, CAP 05/19/18 Carvedilol* (Carvedilol*) 6.25 Mg Tablet, 6.25 MG PO BID, #60 TAB HOLD IF SBP BELOW 110 OR AP BELOW 60 05/19/18 Diphenhydramine Hcl* (Benadryl*) 25 Mg Cap, 25 MG PO Q6H PRN for ITCHING, CAP 05/19/18 Cholecalciferol* (Vitamin D3*) 1,000 Unit Tablet, 1000 UNIT PO BID, TAB 05/19/18 Ascorbate Calcium (Vitamin C) 500 Mg Tablet, 500 MG PO DAILY, TAB 05/19/18 Cran/Vitc/Mannose/Inulin/Brom (Uti-Stat Liquid) 3,875 Mg/30 Ml Liquid, 30 ML PO BID 05/19/18 Aspirin* (Aspirin* EC) 81 Mg Tablet.dr, 81 MG PO DAILY, TAB 05/19/18 Dextran 70/Hypromellose (Artificial Tears) 1 Each Droperette, 1 EACH OP QID 05/19/18 Current Medications Sodium Chloride 1,000 ml @ 100 mls/hr Q10H IV Last administered on 10/20/18at 00:32; Admin Dose 100 MLS/HR; Start 10/18/18 at 08:30 Pantoprazole 80 mg/Sodium Chloride 100 ml @ 10 mls/hr Q10H IV Last administere d on 10/20/18at 10:45; Admin Dose 10 MLS/HR; Start 10/18/18 at 09:00 Ondansetron HCl (Zofran Inj) 4 mg Q4H PRN IV NAUSEA AND/OR VOMITING Last administered on 10/19/18at 21:53; Admin Dose 4 MG; Start 10/18/18 at 08:30 Hydralazine HCl (Apresoline) 20 mg Q6H PRN IV sbp>160,dbp>95; Start 10/18/18 at 08:30 Insulin Aspart (Novolog Insulin Pen) NOVOLOG *MILD* ALGORITHM WITH MEALS BEDTIME SC Last administered on 10/20/18at 12:10; Admin Dose 1 UNIT; Start 10/18/18 at 11:30 Atorvastatin Calcium (Lipitor) 40 mg HS PO Last administered on 10/19/18at 20:49; Admin Dose 40 MG; Start 10/18/18 at 21:00 Morphine Sulfate (morphine) 2 mg Q4H PRN IV SEVERE PAIN LEVEL 7-10; Start 10/18/18 at 21:00 Ceftriaxone Sodium 50 ml @ 100 mls/hr Q24H IVPB Last administered on 10/19/18at 21:06; Admin Dose 100 MLS/HR; Start 10/18/18 at 22:00 Miscellaneous Information 1 ea NOTE XX ; Start 10/19/18 at 08:30 Glucose (Glutose) 15 gm Q15M PRN PO DECREASED GLUCOSE; Start 10/19/18 at 08:30 Glucose (Glutose) 22.5 gm Q15M PRN PO DECREASED GLUCOSE; Start 10/19/18 at 08:30 Dextrose (D50w Syringe) 25 ml Q15M PRN IV DECREASED GLUCOSE; Start 10/19/18 at 08:30 Dextrose (D50w Syringe) 50 ml Q15M PRN IV DECREASED GLUCOSE; Start 10/19/18 at 08:30 Glucagon (Glucagen) 1 mg Q15M PRN IM DECREASED GLUCOSE; Start 10/19/18 at 08:30 Glucose (Glutose) 15 gm Q15M PRN BUCCAL DECREASED GLUCOSE; Start 10/19/18 at 08:30 Amiodarone HCl (Cordarone) 200 mg BID PO Last administered on 10/20/18at 08:20; Admin Dose 200 MG; Start 10/19/18 at 12:30 Carvedilol (Coreg) 6.25 mg BID PO ; Start 10/20/18 at 21:00 Meds reviewed: Yes Allergies Coded Allergies: Penicillins (Unverified Allergy, Severe, ITCHING, RASH, HIVES, 05/19/18) KE PÉREZ SPOKE W/ PT - PT SELF REPORTS ITCHING, RASH, HIVES W/ PCN has tolerated cefazolin and ceftriaxone in January and February 2017 ertapenem (Unverified Allergy, Unknown, 05/19/18) levofloxacin (Verified Adverse Reaction, Severe, arrhythmia, 05/19/18) 02/24 [facility] admission - one episode of non sustained vtach possibly 2/2 fluoroquinolone Allergies Reviewed: Yes Labs/Studies Labs Reviewed: Reviewed by anesthesiologist Result Diagram: 10/20/18 1207 10/20/18 0811 Laboratory Tests 10/20/18 08:11 10/20/18 12:07 test: N/A Studies: ECG (SR) Pre-procedure Exam Last vitals Vital Signs Date Temp Pulse Resp B/P (MAP) Pulse Ox O2 O2 Flow FiO2 Time Delivery Rate 10/20/18 92 18 119/70 99 18:00 (86) 10/20/18 98.2 15:45 10/20/18 Room Air 13:00 10/18/18 6.0 10:21 Airway: Adequate mouth opening Mallampati: Mallampati II Teeth: Normal Lung: Normal Heart: Normal ASA Physical Status ASA physical status: 3 Emergency: None Planned Anesthetic General/MAC: MAC Pre-operative Attestations Prior to commencing anesthesia and surgery, the patient was re-evaluated, there was verification of: *The patient's identity *The results of appropriate recent lab work and preoperative vital signs *The above evaluation not changing prior to induction *Anesthetic plan, risk benefits, alternative and complications discussed with patient/family; questions answered; patient/family understands, accepts and wishes to proceed. CHAVEZ BANUELOS Oct 20, 2018 18:07
[2018-10-20] MEDS: ARTIFICIAL TEARS 15 ML OPH BOTH EYES SCH ×2 (18:30→21:16)
--- NOTE | 2018-10-20 19:09 | PN ---
Date/Time of Note Date/Time of Note DATE: 10/20/18 TIME: 19:08 Assessment/Plan VTE Prophylaxis Risk score (from Ns)>0 risk: 6 SCD applied (from Ns): Yes Pharmacological prophylaxis: NA/contraindicated Pharm contraindication: bleeding Lines/Catheters IV [facility] (from [facility] Peripheral IV Central line still needed: Yes Urinary Cath still in place: Yes Reason Cath still needed: urinary retention Assessment/Plan Hospital Course Patient continues to have dark tarry stools, hemoglobin dropped to 6.2 last night, status post 2 units of packed red blood cells transfusion, latest hemoglobin is 9.4. Continue to monitor H&H every 6 hours, transfuse as needed, pending EGD tomorrow morning. Continue ICU care. Assessment/Plan - Upper gastrointestinal bleed due to bleeding duodenal ulcer. Continue Protonix drip. Dr. Centeno is following in GI. S/p EGD on 10/18/2018 with notion of duodenal ulcer with large amount of clots. - Anemia of acute blood loss, s/p blood transfusion, monitor H&H Q 6hr. - Acute kidney injury. Dr. Tate is asked to see patient in nephrology consultation. - UTI due to E. coli recently diagnosed at [facility]. Continue Rocephin. - Cerebrovascular accident with left hemiparesis. Hold off on antiplatelet or anticoagulation due to active gastrointestinal bleed. - Hypertension. Continue IV hydralazine on p.r.n. basis. - PAF currently in sinus rhythm, no anticoagulation due to acute GI bleed. - Cardiomyopathy wit EF of 40%. Critical care time spent 30 minutes. Further recommendations based on clinical coarse. Plan of care discussed with Dr Cruz. Result Diagram: 10/20/18 1803 10/20/18 0811 Results 24hrs Laboratory Tests Test 10/19/18 21:09 10/20/18 00:36 10/20/18 04:59 10/20/18 07:44 Bedside Glucose 292 H 174 Hemoglobin 6.2 *L Hematocrit 18.9 L Lab Scanned BLOOD TRANSFUSIO Report N Test 10/20/18 08:11 10/20/18 12:06 10/20/18 12:07 10/20/18 17:29 Hemoglobin 11.4 #L 10.6 L Hematocrit 34.6 #L 32.1 L Sodium Level 146 H Potassium Level 4.9 Chloride Level 118 H Carbon Dioxide 17 L Level Anion Gap 11 Blood Urea 95 H Nitrogen Creatinine 1.42 H Est Glomerular Filtrat Rate mL/min Glucose Level 178 Calcium Level 7.6 L Magnesium Level 1.9 Bedside Glucose 178 144 Test 10/20/18 18:03 Hemoglobin 9.4 L Hematocrit 28.5 L Exam/Review of Systems Exam Vitals Vital Signs Date Temp Pulse Resp B/P (MAP) Pulse Ox O2 O2 Flow FiO2 Time Delivery Rate 10/20/18 92 18 119/70 99 18:00 (86) 10/20/18 98.2 15:45 10/20/18 Room Air 13:00 10/18/18 6.0 10:21 Intake and Output 10/19/18 10/19/18 10/20/18 1515:00 23:00 07:00 IntakeIntake Total 640 ml 460 ml 750 ml OutputOutput Total 650 ml 650 ml 310 ml BalanceBalance -10 ml -190 ml 440 ml Exam Constitutional: alert, oriented Neck: supple Respiratory: clear to auscultation Cardiovascular: regular rate and rhythm Gastrointestinal: soft, tender Extremities: normal pulses Results Results 24hrs Laboratory Tests Test 10/19/18 21:09 10/20/18 00:36 10/20/18 04:59 10/20/18 07:44 Bedside Glucose 292 H 174 Hemoglobin 6.2 *L Hematocrit 18.9 L Lab Scanned BLOOD TRANSFUSIO Report N Test 10/20/18 08:11 10/20/18 12:06 10/20/18 12:07 10/20/18 17:29 Hemoglobin 11.4 #L 10.6 L Hematocrit 34.6 #L 32.1 L Sodium Level 146 H Potassium Level 4.9 Chloride Level 118 H Carbon Dioxide 17 L Level Anion Gap 11 Blood Urea 95 H Nitrogen Creatinine 1.42 H Est Glomerular Filtrat Rate mL/min Glucose Level 178 Calcium Level 7.6 L Magnesium Level 1.9 Bedside Glucose 178 144 Test 10/20/18 18:03 Hemoglobin 9.4 L Hematocrit 28.5 L Medications Medication Current Medications Sodium Chloride 1,000 ml @ 100 mls/hr Q10H IV Last administered on 10/20/18at 00:32; Admin Dose 100 MLS/HR; Start 10/18/18 at 08:30 Pantoprazole 80 mg/Sodium Chloride 100 ml @ 10 mls/hr Q10H IV Last administered on 10/20/18at 10:45; Admin Dose 10 MLS/HR; Start 10/18/18 at 09:00 Ondansetron HCl (Zofran Inj) 4 mg Q4H PRN IV NAUSEA AND/OR VOMITING Last administered on 10/19/18at 21:53; Admin Dose 4 MG; Start 10/18/18 at 08:30 Hydralazine HCl (Apresoline) 20 mg Q6H PRN IV sbp>160,dbp>95; Start 10/18/18 at 08:30 Insulin Aspart (Novolog Insulin Pen) NOVOLOG *MILD* ALGORITHM WITH MEALS BEDTIME SC Last administered on 10/20/18 12:10; Admin Dose 1 UNIT; Start 10/18/18 at 11:30 Atorvastatin Calcium (Lipitor) 40 mg HS PO Last administered on 10/19/18at 20:49; Admin Dose 40 MG; Start 10/18/18 at 21:00 Morphine Sulfate (morphine) 2 mg Q4H PRN IV SEVERE PAIN LEVEL 7-10; Start 10/18/18 at 21:00 Ceftriaxone Sodium 50 ml @ 100 mls/hr Q24H IVPB Last administered on 10/19/18at 21:06; Admin Dose 100 MLS/HR; Start 10/18/18 at 22:00 Miscellaneous Information 1 ea NOTE XX ; Start 10/19/18 at 08:30 Glucose (Glutose) 15 gm Q15M PRN PO DECREASED GLUCOSE; Start 10/19/18 at 08:30 Glucose (Glutose) 22.5 gm Q15M PRN PO DECREASED GLUCOSE; Start 10/19/18 at 08:30 Dextrose (D50w Syringe) 25 ml Q15M PRN IV DECREASED GLUCOSE; Start 10/19/18 at 08:30 Dextrose (D50w Syringe) 50 ml Q15M PRN IV DECREASED GLUCOSE; Start 10/19/18 at 08:30 Glucagon (Glucagen) 1 mg Q15M PRN IM DECREASED GLUCOSE; Start 10/19/18 at 08:30 Glucose (Glutose) 15 gm Q15M PRN BUCCAL DECREASED GLUCOSE; Start 10/19/18 at 08:30 Amiodarone HCl (Cordarone) 200 mg BID PO Last administered on 10/20/18at 08:20; Admin Dose 200 MG; Start 10/19/18 at 12:30 Carvedilol (Coreg) 6.25 mg BID PO ; Start 10/20/18 at 21:00 Levetiracetam 100 ml @ 400 mls/hr Q12 IVPB ; Start 10/20/18 at 21:00 Brimonidine Tartrate (Alphagan P 0.15%) 1 drop BID BOTH EYES ; Start 10/20/18 at 21:00 Eye Lubricant (Artificial Tears Oph) 1 drop QID BOTH EYES ; Start 10/20/18 at 18:30 JANET FOOTE Oct 20, 2018 19:09
[2018-10-20] MEDS: LEVETIRACETAM 500 MG (PMX) 100 ML IVPB SCH (21:16)
[2018-10-20] MEDS: BRIMONIDINE 0.15% 5 ML OPH BOTH EYES SCH (21:16)
[2018-10-20] MEDS: ATORVASTATIN 40 MG TAB PO SCH (21:17)
[2018-10-20] MEDS: CEFTRIAXONE 1 GM/50 ML (PMX) 50 ML IVPB SCH (21:18)
[2018-10-21] VITALS (25 sets, daily range): BP systolic 112–150; BP diastolic 38–74; PULSE 78–95; RESP 13–23
[2018-10-21] MEDS: SOD CHLORIDE 0.9% 1,000 ML IV SCH (05:40)
[2018-10-21] MEDS: PANTOPRAZOLE IV 80 MG in SOD CHLORIDE 0.9% 100 ML IV SCH ×2 (06:19→16:10)
[2018-10-21] MEDS: INSULIN ASPART [NOVOLOG] 3 ML PEN SC SCH ×4 (07:35→21:00)
[2018-10-21] MEDS: BRIMONIDINE 0.15% 5 ML OPH BOTH EYES SCH ×2 (08:17→21:30)
[2018-10-21] MEDS: ARTIFICIAL TEARS 15 ML OPH BOTH EYES SCH ×4 (08:17→21:30)
[2018-10-21] MEDS: AMIODARONE 200 MG TAB PO SCH ×2 (08:19→21:30)
--- NOTE | 2018-10-21 08:42 | CONS ---
Assessment/Plan Assessment/Plan Assessment/Plan (Daily) 1. acute hyperkalemia 2. acute Prerenal azotemia from Upper GI bleeding 3. acute Upper GI bleeding 4. History of CVA 5. Left vertebral artery stenosis 6. H/o Hypertension 7. H/o Diabetes 8. H/o History of cardiomyopathy, current echocardiogram with ejection fraction 55% 9. H/o Paroxysmal atrial fibrillation 10. Hypernatremia Plan: s/p GI work up and EGD for upper GI bleeding, Hb stable today Na trending up, change IVF to 1/2 NS at 80 cc/hr Renally dose all medicaitons and monitro electrolytes Thanks for consultaiton, I will continue to daniele nails Consultation Date/Type/Reason Admit Date/Time Oct 18, 2018 at 07:52 Date of Consultation: Oct 21, 2018 Type of Consult NEPHROLOGY Reason for Consultation Hypernatremia, acute kidney injury, GI bleeding Requesting Provider: MAGDI EDWARDS MD Date/Time of Note DATE: 10/21/18 TIME: 08:42 Hx of Present Illness 78-year-old female known to me from multiple previous admissions with history of cerebral vascular disease, CVA who presents with evidence of GI bleed. Patient with coffee-ground emesis. Patient is undergone GI evaluation and has had EGD with evidence of blood clots but no active bleeding. Patient was on Plavix because of cerebral vascular disease and recurrent strokes. K 5.2, BUN/Cr 95/1.42- Renal has been consulted for hypernaremia, SCOTT and Uremia. Past Medical History Medical History: high cholesterol, hypertension, other (h/o CVA ) Home Meds Reported Medications Acetaminophen* (Tylenol*) 325 Mg Tablet, 650 MG PO Q4H PRN for MILD PAIN LEVEL 1-3, TAB 05/19/18 Linagliptin (TRADJENTA) 5 Mg Tablet, 5 MG PO DAILY, TAB 05/19/18 Sennosides* (Senna Lax*) 8.6 Mg Tablet, 1 TAB PO DAILY, TAB 05/19/18 Pantoprazole* (Protonix*) 40 Mg Tablet.dr, 40 MG PO DAILY, TAB 05/19/18 Potassium Chloride* (K-Dur*) 20 Meq Tab.prt.sr, 40 MEQ PO DAILY, TAB.SA 05/19/18 Clopidogrel Bisulfate* (Clopidogrel Bisulfate*) 75 Mg Tablet, 75 MG PO DAILY, #30 TAB 05/19/18 Mv-Mn/FA/Vit K/Lycop/Lut/Zeaxa (Ocuvite Eye + Multi Tablet) 1 Each Tablet, 1 EACH PO DAILY, TAB 05/19/18 Amlodipine Besylate* (Norvasc*) 10 Mg Tablet, 10 MG PO DAILY, TAB 05/19/18 Hydrocodone/Acetaminophen (Milan 5-325 Tablet) 1 Each Tablet, 1 EACH PO Q8H for FOR PAIN -04/13, TAB 05/19/18 Naproxen* (Naproxen*) 375 Mg Tablet, 375 MG PO Q8H, TAB 05/19/18 Multivitamin with Minerals (Multivitamins with Minerals) 1 Each Tablet, 1 EACH PO DAILY, TAB 05/19/18 Magnesium Hydroxide* (Milk Of Magnesia*) 400 Mg/5 Ml Oral.susp, 30 ML PO Q24H PRN for NEEDED, ML 05/19/18 Metformin Hcl* (Metformin Hcl*) 500 Mg Tablet, 500 MG PO WITH BREAKFAST DINNE, #60 TAB 05/19/18 Magnesium Oxide* (Magnesium Oxide*) 400 Mg Tablet, 400 MG PO DAILY, TAB 05/19/18 Losartan Potassium* (Losartan Potassium*) 50 Mg Tablet, 50 MG PO BID, TAB HOLD IF SBP BELOW 110 OR AP BELOW 60 05/19/18 Loratadine* (Loratadine*) 10 Mg Tablet, 10 MG PO DAILY, #30 TAB 05/19/18 Atorvastatin* (Atorvastatin*) 80 Mg Tablet, 80 MG PO QHS, #30 TAB 05/19/18 Levetiracetam* (Keppra*) 750 Mg Tablet, 750 MG PO BID, TAB 05/19/18 Hydrochlorothiazide* (Hydrochlorothiazide*) 12.5 Mg Tablet, 12.5 MG PO DAILY, #30 TAB HOLD IF SBP BELOW 110 OR AP BELOW 60 05/19/18 Dextrose (Glucose Gel) 38 Gm Gel..gram., 15 GM PO NEEDED 05/19/18 Gabapentin* (Gabapentin*) 100 Mg Capsule, 100 MG PO Q12H, #90 CAP 05/19/18 Fluticasone Propionate (Flonase Allergy Relief) 9.9 Ml Mcclellan.susp, 1 SPRAY NASAL BID, #1 BOTTLE TO EACH NOSTRIL 05/19/18 Na Phos,M-B/Na Phos,Di-Ba (Fleet Enema Extra) 230 Ml Enema, 1 APPLIC RC Q2D PRN for NEEDED, ENEMA 05/19/18 Ferrous Sulfate* (Ferrous Sulfate*) 325 Mg Tabec, 325 MG PO DAILY, TAB 05/19/18 Bisacodyl* (Bisacodyl*) 10 Mg Supp, 10 MG NV Q24H PRN for NEEDED, SUPP 05/19/18 Cranberry Extract (Cranberry) 425 Mg Capsule, 425 MG PO BID, CAP 05/19/18 Carvedilol* (Carvedilol*) 6.25 Mg Tablet, 6.25 MG PO BID, #60 TAB HOLD IF SBP BELOW 110 OR AP BELOW 60 05/19/18 Diphenhydramine Hcl* (Benadryl*) 25 Mg Cap, 25 MG PO Q6H PRN for ITCHING, CAP 05/19/18 Cholecalciferol* (Vitamin D3*) 1,000 Unit Tablet, 1000 UNIT PO BID, TAB 05/19/18 Ascorbate Calcium (Vitamin C) 500 Mg Tablet, 500 MG PO DAILY, TAB 05/19/18 Cran/Vitc/Mannose/Inulin/Brom (Uti-Stat Liquid) 3,875 Mg/30 Ml Liquid, 30 ML PO BID 05/19/18 Aspirin* (Aspirin* EC) 81 Mg Tablet.dr, 81 MG PO DAILY, TAB 05/19/18 Dextran 70/Hypromellose (Artificial Tears) 1 Each Droperette, 1 EACH OP QID 05/19/18 Medications Current Medications Sodium Chloride 1,000 ml @ 100 mls/hr Q10H IV Last administered on 10/21/18at 05:40; Admin Dose 100 MLS/HR; Start 10/18/18 at 08:30 Pantoprazole 80 mg/Sodium Chloride 100 ml @ 10 mls/hr Q10H IV Last administered on 10/21/18at 06:19; Admin Dose 10 MLS/HR; Start 10/18/18 at 09:00 Ondansetron HCl (Zofran Inj) 4 mg Q4H PRN IV NAUSEA AND/OR VOMITING Last administered on 10/19/18at 21:53; Admin Dose 4 MG; Start 10/18/18 at 08:30 Hydralazine HCl (Apresoline) 20 mg Q6H PRN IV sbp>160,dbp>95; Start 10/18/18 at 08:30 Insulin Aspart (Novolog Insulin Pen) NOVOLOG *MILD* ALGORITHM WITH MEALS BEDTIME SC Last administered on 10/20/18at 12:10; Admin Dose 1 UNIT; Start 10/18/18 at 11:30 Atorvastatin Calcium (Lipitor) 40 mg HS PO Last administered on 10/20/18at 21:17; Admin Dose 40 MG; Start 10/18/18 at 21:00 Morphine Sulfate (morphine) 2 mg Q4H PRN IV SEVERE PAIN LEVEL 7-10; Start 10/18/18 at 21:00 Ceftriaxone Sodium 50 ml @ 100 mls/hr Q24H IVPB Last administered on 10/20/18at 21:18; Admin Dose 100 MLS/HR; Start 10/18/18 at 22:00 Miscellaneous Information 1 ea NOTE XX ; Start 10/19/18 at 08:30 Glucose (Glutose) 15 gm Q15M PRN PO DECREASED GLUCOSE; Start 10/19/18 at 08:30 Glucose (Glutose) 22.5 gm Q15M PRN PO DECREASED GLUCOSE; Start 10/19/18 at 08:30 Dextrose (D50w Syringe) 25 ml Q15M PRN IV DECREASED GLUCOSE; Start 10/19/18 at 08:30 Dextrose (D50w Syringe) 50 ml Q15M PRN IV DECREASED GLUCOSE; Start 10/19/18 at 08:30 Glucagon (Glucagen) 1 mg Q15M PRN IM DECREASED GLUCOSE; Start 10/19/18 at 08:30 Glucose (Glutose) 15 gm Q15M PRN BUCCAL DECREASED GLUCOSE; Start 10/19/18 at 08:30 Amiodarone HCl (Cordarone) 200 mg BID PO Last administered on 10/21/18at 08:19; Admin Dose 200 MG; Start 10/19/18 at 12:30 Carvedilol (Coreg) 6.25 mg BID PO Last administered on 10/21/18at 08:15; Admin Dose 6.25 MG; Start 10/20/18 at 21:00 Levetiracetam 100 ml @ 400 mls/hr Q12 IVPB Last administered on 10/20/18at 21:16; Admin Dose 400 MLS/HR; Start 10/20/18 at 21:00 Brimonidine Tartrate (Alphagan P 0.15%) 1 drop BID BOTH EYES Last administered on 10/21/18at 08:17; Admin Dose 1 DROP; Start 10/20/18 at 21:00 Eye Lubricant (Artificial Tears Oph) 1 drop QID BOTH EYES Last administered on 10/21/18at 08:17; Admin Dose 1 DROP; Start 10/20/18 at 18:30 Fluticasone Propionate (Flonase 0.05% Nasal) 1 spray BID NASAL ; Start 10/21/18 at 09:00 Allergies: Coded Allergies: Penicillins (Unverified Allergy, Severe, ITCHING, RASH, HIVES, 05/19/18) KE PÉREZ SPOKE W/ PT - PT SELF REPORTS ITCHING, RASH, HIVES W/ PCN has tolerated cefazolin and ceftriaxone in January and February 2017 ertapenem (Unverified Allergy, Unknown, 05/19/18) levofloxacin (Verified Adverse Reaction, Severe, arrhythmia, 05/19/18) 02/24 [facility] admission - one episode of non sustained vtach possibly 2/2 fluoroquinolone Past Surgical History Past Surgical Hx: no surgical history Family History Significant Family History: no pertinent family hx Social History Alcohol Use: none Smoking Status: Never smoker Drug Use: none Exam/Review of Systems Exam Vitals Vital Signs Date Temp Pulse Resp B/P (MAP) Pulse Ox O2 O2 Flow FiO2 Time Delivery Rate 10/21/18 98.8 95 13 136/61 100 08:00 (86) 10/21/18 Room Air 06:00 10/18/18 6.0 10:21 Intake and Output 10/20/18 10/20/18 10/21/18 1414:59 22:59 06:59 IntakeIntake Total 800 ml 90 ml OutputOutput Total 230 ml 510 ml 415 ml BalanceBalance 570 ml -420 ml -415 ml Exam Constitutional: alert (No apparent distress, following commands, family bedside) Head: normocephalic Respiratory: clear to auscultation, normal air movement Cardiovascular: regular rate and rhythm (S1-S2 heard) Gastrointestinal: soft, non-tender, bowel sounds Extremities: edema Results Result Diagram: 10/21/1861810/21/18618 Results 24hrs Laboratory Tests Test 3/19/19 12:06 10/20/18 12:07 10/20/18 17:29 10/20/18 18:03 Bedside Glucose 178 144 Hemoglobin 10.6 L 9.4 L Hematocrit 32.1 L 28.5 L Test 10/20/18 21:20 10/21/18 00:30 10/21/18 05:03 10/21/18 06:19 Bedside Glucose 146 Hemoglobin 8.8 L 8.7 L Hematocrit 27.2 L 26.1 L Lab Scanned BLOOD TRANSFUSIO Report N White Blood Count 12.5 H Red Blood Count 2.71 L Mean Corpuscular 96.3 Volume Mean Corpuscular 32.1 Hemoglobin Mean Corpuscular 33.3 Hemoglobin Concen t Red Cell 14.7 #H Distribution Width Platelet Count 145 # Mean Platelet 11.2 H Volume Immature 1.800 H Granulocytes % Neutrophils % 78.7 H Lymphocytes % 11.1 L Monocytes % 5.3 Eosinophils % 2.6 Basophils % 0.5 Nucleated Red 1.6 H Blood Cells % Immature 0.230 H Granulocytes # Neutrophils # 9.8 H Lymphocytes # 1.4 Monocytes # 0.7 Eosinophils # 0.3 Basophils # 0.1 Nucleated Red 0.2 H Blood Cells # Sodium Level 148 H Potassium Level 4.2 Chloride Level 123 H Carbon Dioxide 17 L Level Anion Gap 8 Blood Urea 55 #H Nitrogen Creatinine 1.09 H Est Glomerular Filtrat Rate mL/min Glucose Level 142 Calcium Level 7.7 L Medications Medication Current Medications Sodium Chloride 1,000 ml @ 100 mls/hr Q10H IV Last administered on 10/21/18at 05:40; Admin Dose 100 MLS/HR; Start 10/18/18 at 08:30 Pantoprazole 80 mg/Sodium Chloride 100 ml @ 10 mls/hr Q10H IV Last administered on 10/21/18at 06:19; Admin Dose 10 MLS/HR; Start 10/18/18 at 09:00 Ondansetron HCl (Zofran Inj) 4 mg Q4H PRN IV NAUSEA AND/OR VOMITING Last administered on 10/19/18at 21:53; Admin Dose 4 MG; Start 10/18/18 at 08:30 Hydralazine HCl (Apresoline) 20 mg Q6H PRN IV sbp>160,dbp>95; Start 10/18/18 at 08:30 Insulin Aspart (Novolog Insulin Pen) NOVOLOG *MILD* ALGORITHM WITH MEALS BEDTIME SC Last administered on 10/20/18at 12:10; Admin Dose 1 UNIT; Start 10/18/18 at 11:30 Atorvastatin Calcium (Lipitor) 40 mg HS PO Last administered on 10/20/18at 21:17; Admin Dose 40 MG; Start 10/18/18 at 21:00 Morphine Sulfate (morphine) 2 mg Q4H PRN IV SEVERE PAIN LEVEL 7-10; Start 10/18/18 at 21:00 Ceftriaxone Sodium 50 ml @ 100 mls/hr Q24H IVPB Last administered on 10/20/18 21:18; Admin Dose 100 MLS/HR; Start 10/18/18 at 22:00 Miscellaneous Information 1 ea NOTE XX ; Start 10/19/18 at 08:30 Glucose (Glutose) 15 gm Q15M PRN PO DECREASED GLUCOSE; Start 10/19/18 at 08:30 Glucose (Glutose) 22.5 gm Q15M PRN PO DECREASED GLUCOSE; Start 10/19/18 at 08:30 Dextrose (D50w Syringe) 25 ml Q15M PRN IV DECREASED GLUCOSE; Start 10/19/18 at 08:30 Dextrose (D50w Syringe) 50 ml Q15M PRN IV DECREASED GLUCOSE; Start 10/19/18 at 08:30 Glucagon (Glucagen) 1 mg Q15M PRN IM DECREASED GLUCOSE; Start 10/19/18 at 08:30 Glucose (Glutose) 15 gm Q15M PRN BUCCAL DECREASED GLUCOSE; Start 10/19/18 at 08:30 Amiodarone HCl (Cordarone) 200 mg BID PO Last administered on 10/21/18 08:19; Admin Dose 200 MG; Start 10/19/18 at 12:30 Carvedilol (Coreg) 6.25 mg BID PO Last administered on 10/21/18at 08:15; Admin Dose 6.25 MG; Start 10/20/18 at 21:00 Levetiracetam 100 ml @ 400 mls/hr Q12 IVPB Last administered on 10/20/18 21:16; Admin Dose 400 MLS/HR; Start 10/20/18 at 21:00 Brimonidine Tartrate (Alphagan P 0.15%) 1 drop BID BOTH EYES Last administered on 3/20/19at 08:17; Admin Dose 1 DROP; Start 10/20/18 at 21:00 Eye Lubricant (Artificial Tears Oph) 1 drop QID BOTH EYES Last administered on 10/21/18 08:17; Admin Dose 1 DROP; Start 10/20/18 at 18:30 Fluticasone Propionate (Flonase 0.05% Nasal) 1 spray BID NASAL ; Start 10/21/18 at 09:00 RICK ESCAMILLA MD Oct 21, 2018 08:42
[2018-10-21] MEDS ORDERED: FLUTICASONE 0.05% 16 GM NAS SPRAY NASAL SCH (09:00)
[2018-10-21] MEDS: SOD CHLORIDE 0.45% 1,000 ML IV SCH ×2 (09:04→23:23)
[2018-10-21] MEDS: LEVETIRACETAM 500 MG (PMX) 100 ML IVPB SCH ×2 (09:06→21:31)
--- NOTE | 2018-10-21 10:22 | PN ---
Date/Time of Note Date/Time of Note DATE: 10/21/18 TIME: 10:20 Assessment/Plan VTE Prophylaxis Risk score (from Ns)>0 risk: 3 SCD applied (from Ns): Yes Pharmacological prophylaxis: NA/contraindicated Pharm contraindication: bleeding Lines/Catheters IV Catheter Type (from Nrs): Peripheral IV Urinary Cath still in place: Yes Reason Cath still needed: urinary retention Assessment/Plan Hospital Course Patient is resting comfortably had last dark stool last night, hemoglobin is 8.7 so far consistent overnight, pending EGD today in the afternoon. Patient's condition and plan of care discussed with patient daughter at the bedside. Assessment/Plan - Upper gastrointestinal bleed due to bleeding duodenal ulcer. Continue Protonix drip. Dr. Centeno is following in GI. S/p EGD on 10/18/2018 with notion of duodenal ulcer with large amount of clots. - Anemia of acute blood loss, s/p blood transfusion, monitor H&H Q 6hr. - Acute kidney injury. Dr. Tate is asked to see patient in nephrology consultation. - UTI due to E. coli. Continue Rocephin. - Cerebrovascular accident with left hemiparesis. Hold off on antiplatelet or anticoagulation due to active gastrointestinal bleed. - Hypertension. Continue IV hydralazine on p.r.n. basis. - PAF currently in sinus rhythm, no anticoagulation due to acute GI bleed. - Cardiomyopathy wit EF of 40%. Critical care time spent 30 minutes. Further recommendations based on clinical coarse. Plan of care discussed with Dr Cruz. Result Diagram: 10/21/1819 10/21/1819 Results 24hrs Laboratory Tests Test 10/20/18 12:06 10/20/18 12:07 10/20/18 17:29 10/20/18 18:03 Bedside Glucose 178 144 Hemoglobin 10.6 L 9.4 L Hematocrit 32.1 L 28.5 L Test 10/20/18 21:20 10/21/18 00:30 10/21/18 05:03 10/21/18 06:19 Bedside Glucose 146 Hemoglobin 8.8 L 8.7 L Hematocrit 27.2 L 26.1 L Lab Scanned BLOOD TRANSFUSIO Report N White Blood Count 12.5 H Red Blood Count 2.71 L Mean Corpuscular 96.3 Volume Mean Corpuscular 32.1 Hemoglobin Mean Corpuscular 33.3 Hemoglobin Concen t Red Cell 14.7 #H Distribution Width Platelet Count 145 # Mean Platelet 11.2 H Volume Immature 1.800 H Granulocytes % Neutrophils % 78.7 H Lymphocytes % 11.1 L Monocytes % 5.3 Eosinophils % 2.6 Basophils % 0.5 Nucleated Red 1.6 H Blood Cells % Immature 0.230 H Granulocytes # Neutrophils # 9.8 H Lymphocytes # 1.4 Monocytes # 0.7 Eosinophils # 0.3 Basophils # 0.1 Nucleated Red 0.2 H Blood Cells # Sodium Level 148 H Potassium Level 4.2 Chloride Level 123 H Carbon Dioxide 17 L Level Anion Gap 8 Blood Urea 55 #H Nitrogen Creatinine 1.09 H Est Glomerular Filtrat Rate mL/min Glucose Level 142 Calcium Level 7.7 L Exam/Review of Systems Exam Vitals Vital Signs Date Temp Pulse Resp B/P (MAP) Pulse Ox O2 O2 Flow FiO2 Time Delivery Rate 10/21/18 84 16 112/51 97 10:00 (71) 10/21/18 98.8 08:00 10/21/18 Room Air 06:00 10/18/18 6.0 10:21 Intake and Output 10/20/18 10/20/18 10/21/18 1515:00 23:00 07:00 IntakeIntake Total 790 ml 90 ml 110 ml OutputOutput Total 230 ml 570 ml 605 ml BalanceBalance 560 ml -480 ml -495 ml Exam Constitutional: alert, oriented Neck: supple Respiratory: clear to auscultation Cardiovascular: regular rate and rhythm Gastrointestinal: soft, tender Extremities: normal pulses, edema. Results Results 24hrs Laboratory Tests Test 10/20/18 12:06 10/20/18 12:07 10/20/18 17:29 10/20/18 18:03 Bedside Glucose 178 144 Hemoglobin 10.6 L 9.4 L Hematocrit 32.1 L 28.5 L Test 10/20/18 21:20 10/21/18 00:30 10/21/18 05:03 10/21/18 06:19 Bedside Glucose 146 Hemoglobin 8.8 L 8.7 L Hematocrit 27.2 L 26.1 L Lab Scanned BLOOD TRANSFUSIO Report N White Blood Count 12.5 H Red Blood Count 2.71 L Mean Corpuscular 96.3 Volume Mean Corpuscular 32.1 Hemoglobin Mean Corpuscular 33.3 Hemoglobin Concen t Red Cell 14.7 #H Distribution Width Platelet Count 145 # Mean Platelet 11.2 H Volume Immature 1.800 H Granulocytes % Neutrophils % 78.7 H Lymphocytes % 11.1 L Monocytes % 5.3 Eosinophils % 2.6 Basophils % 0.5 Nucleated Red 1.6 H Blood Cells % Immature 0.230 H Granulocytes # Neutrophils # 9.8 H Lymphocytes # 1.4 Monocytes # 0.7 Eosinophils # 0.3 Basophils # 0.1 Nucleated Red 0.2 H Blood Cells # Sodium Level 148 H Potassium Level 4.2 Chloride Level 123 H Carbon Dioxide 17 L Level Anion Gap 8 Blood Urea 55 #H Nitrogen Creatinine 1.09 H Est Glomerular Filtrat Rate mL/min Glucose Level 142 Calcium Level 7.7 L Medications Medication Current Medications Pantoprazole 80 mg/Sodium Chloride 100 ml @ 10 mls/hr Q10H IV Last administered on 10/21/18at 06:19; Admin Dose 10 MLS/HR; Start 10/18/18 at 09:00 Ondansetron HCl (Zofran Inj) 4 mg Q4H PRN IV NAUSEA AND/OR VOMITING Last administered on 10/19/18at 21:53; Admin Dose 4 MG; Start 10/18/18 at 08:30 Hydralazine HCl (Apresoline) 20 mg Q6H PRN IV sbp>160,dbp>95; Start 10/18/18 at 08:30 Insulin Aspart (Novolog Insulin Pen) NOVOLOG *MILD* ALGORITHM WITH MEALS BEDTIME SC Last administered on 10/20/18at 12:10; Admin Dose 1 UNIT; Start 10/18/18 at 11:30 Atorvastatin Calcium (Lipitor) 40 mg HS PO Last administered on 10/20/18at 21:17; Admin Dose 40 MG; Start 10/18/18 at 21:00 Morphine Sulfate (morphine) 2 mg Q4H PRN IV SEVERE PAIN LEVEL 7-10; Start 10/18/18 at 21:00 Ceftriaxone Sodium 50 ml @ 100 mls/hr Q24H IVPB Last administered on 10/20/18at 21:18; Admin Dose 100 MLS/HR; Start 10/18/18 at 22:00 Miscellaneous Information 1 ea NOTE XX ; Start 10/19/18 at 08:30 Glucose (Glutose) 15 gm Q15M PRN PO DECREASED GLUCOSE; Start 10/19/18 at 08:30 Glucose (Glutose) 22.5 gm Q15M PRN PO DECREASED GLUCOSE; Start 10/19/18 at 08:30 Dextrose (D50w Syringe) 25 ml Q15M PRN IV DECREASED GLUCOSE; Start 10/19/18 at 08:30 Dextrose (D50w Syringe) 50 ml Q15M PRN IV DECREASED GLUCOSE; Start 10/19/18 at 08:30 Glucagon (Glucagen) 1 mg Q15M PRN IM DECREASED GLUCOSE; Start 10/19/18 at 08:30 Glucose (Glutose) 15 gm Q15M PRN BUCCAL DECREASED GLUCOSE; Start 10/19/18 at 08:30 Amiodarone HCl (Cordarone) 200 mg BID PO Last administered on 10/21/18 08:19; Admin Dose 200 MG; Start 10/19/18 at 12:30 Carvedilol (Coreg) 6.25 mg BID PO Last administered on 10/21/18 08:15; Admin Dose 6.25 MG; Start 10/20/18 at 21:00 Levetiracetam 100 ml @ 400 mls/hr Q12 IVPB Last administered on 10/21/18 09:06; Admin Dose 400 MLS/HR; Start 10/20/18 at 21:00 Brimonidine Tartrate (Alphagan P 0.15%) 1 drop BID BOTH EYES Last administered on 10/21/18 08:17; Admin Dose 1 DROP; Start 10/20/18 at 21:00 Eye Lubricant (Artificial Tears Oph) 1 drop QID BOTH EYES Last administered on 10/21/18 08:17; Admin Dose 1 DROP; Start 10/20/18 at 18:30 Fluticasone Propionate (Flonase 0.05% Nasal) 1 spray BID NASAL ; Start 10/21/18 at 09:00 Sodium Chloride 1,000 ml @ 80 mls/hr [id number] IV Last administered on 10/21/18 09:04; Admin Dose 80 MLS/HR; Start 10/21/18 at 09:00 JANET FOOTE Oct 21, 2018 10:22
[2018-10-21] MEDS: FLUTICASONE 0.05% 16 GM NAS SPRAY NASAL SCH ×2 (10:44→21:31)
--- NOTE | 2018-10-21 15:23 | CONS ---
Assessment/Plan Assessment/Plan Hospital Course (Demo Recall) Upper GI bleed History of CVA Left vertebral artery stenosis Hypertension Cerebral artery disease Diabetes History of cardiomyopathy, current echocardiogram with ejection fraction 55% Paroxysmal atrial fibrillation -Patient with upper GI bleed and thought secondary to NSAID use and Plavix. Patient was on Plavix because of known cerebrovascular disease and history of CVA on previous admissions. Plan for repeat endoscopy given progressive decrease in hemoglobin. -Patient with paroxysmal atrial fibrillation noted on telemetry and currently sinus rhythm. Given recent GI bleed, cannot tolerate anticoagulation. Continue beta-katherine and amiodarone as tolerated. Consultation Date/Type/Reason Admit Date/Time Oct 18, 2018 at 07:52 Initial Consult Date 10/18/18 Type of Consult Cardiology Requesting Provider: MAGDI EDWARDS MD Date/Time of Note DATE: 10/21/18 TIME: 15:22 24 HR Interval Summary Free Text/Dictation No shortness of breath, chest pain Exam/Review of Systems Vital Signs Vitals Vital Signs Date Temp Pulse Resp B/P (MAP) Pulse Ox O2 O2 Flow FiO2 Time Delivery Rate 10/21/18 98.6 80 20 125/42 97 13:00 (69) 10/21/18 Room Air 06:00 10/18/18 6.0 10:21 Intake and Output 10/20/18 10/20/18 10/21/18 1515:00 23:00 07:00 IntakeIntake Total 790 ml 90 ml 110 ml OutputOutput Total 230 ml 570 ml 605 ml BalanceBalance 560 ml -480 ml -495 ml Exam Constitutional: alert (Following commands, no apparent distress) Head: normocephalic Respiratory: other (Coarse breath sounds bilaterally, no wheezing) Cardiovascular: regular rate and rhythm (S1-S2 heard) Gastrointestinal: soft, non-tender, bowel sounds Extremities: edema (Trace) Labs Result Diagram: 10/21/18 0610/21/18 0619 Results 24hrs Laboratory Tests Test 10/20/18 17:29 10/20/18 18:03 10/20/18 21:20 10/21/18 00:30 Bedside Glucose 144 146 Hemoglobin 9.4 L 8.8 L Hematocrit 28.5 L 27.2 L Test 10/21/18 05:03 10/21/18 06:19 10/21/18 10:46 Lab Scanned BLOOD TRANSFUSIO Report N White Blood Count 12.5 H Red Blood Count 2.71 L Hemoglobin 8.7 L Hematocrit 26.1 L Mean Corpuscular 96.3 Volume Mean Corpuscular 32.1 Hemoglobin Mean Corpuscular 33.3 Hemoglobin Concen t Red Cell 14.7 #H Distribution Width Platelet Count 145 # Mean Platelet 11.2 H Volume Immature 1.800 H Granulocytes % Neutrophils % 78.7 H Lymphocytes % 11.1 L Monocytes % 5.3 Eosinophils % 2.6 Basophils % 0.5 Nucleated Red 1.6 H Blood Cells % Immature 0.230 H Granulocytes # Neutrophils # 9.8 H Lymphocytes # 1.4 Monocytes # 0.7 Eosinophils # 0.3 Basophils # 0.1 Nucleated Red 0.2 H Blood Cells # Sodium Level 148 H Potassium Level 4.2 Chloride Level 123 H Carbon Dioxide 17 L Level Anion Gap 8 Blood Urea 55 #H Nitrogen Creatinine 1.09 H Est Glomerular Filtrat Rate mL/min Glucose Level 142 Calcium Level 7.7 L Bedside Glucose 163 Medications Medications Current Medications Pantoprazole 80 mg/Sodium Chloride 100 ml @ 10 mls/hr Q10H IV Last administered on 10/21/18at 06:19; Admin Dose 10 MLS/HR; Start 10/18/18 at 09:00 Ondansetron HCl (Zofran Inj) 4 mg Q4H PRN IV NAUSEA AND/OR VOMITING Last administered on 10/19/18at 21:53; Admin Dose 4 MG; Start 10/18/18 at 08:30 Hydralazine HCl (Apresoline) 20 mg Q6H PRN IV sbp>160,dbp>95; Start 10/18/18 at 08:30 Insulin Aspart (Novolog Insulin Pen) NOVOLOG *MILD* ALGORITHM WITH MEALS BEDTIME SC Last administered on 10/21/18at 10:48; Admin Dose 1 UNIT; Start 10/18/18 at 11:30 Atorvastatin Calcium (Lipitor) 40 mg HS PO Last administered on 10/20/18at 21:17; Admin Dose 40 MG; Start 10/18/18 at 21:00 Morphine Sulfate (morphine) 2 mg Q4H PRN IV SEVERE PAIN LEVEL 7-10; Start 10/18/18 at 21:00 Ceftriaxone Sodium 50 ml @ 100 mls/hr Q24H IVPB Last administered on 10/20/18at 21:18; Admin Dose 100 MLS/HR; Start 10/18/18 at 22:00 Miscellaneous Information 1 ea NOTE XX ; Start 10/19/18 at 08:30 Glucose (Glutose) 15 gm Q15M PRN PO DECREASED GLUCOSE; Start 10/19/18 at 08:30 Glucose (Glutose) 22.5 gm Q15M PRN PO DECREASED GLUCOSE; Start 10/19/18 at 08:30 Dextrose (D50w Syringe) 25 ml Q15M PRN IV DECREASED GLUCOSE; Start 10/19/18 at 08:30 Dextrose (D50w Syringe) 50 ml Q15M PRN IV DECREASED GLUCOSE; Start 10/19/18 at 08:30 Glucagon (Glucagen) 1 mg Q15M PRN IM DECREASED GLUCOSE; Start 10/19/18 at 08:30 Glucose (Glutose) 15 gm Q15M PRN BUCCAL DECREASED GLUCOSE; Start 10/19/18 at 08:30 Amiodarone HCl (Cordarone) 200 mg BID PO Last administered on 10/21/18 08:19; Admin Dose 200 MG; Start 10/19/18 at 12:30 Carvedilol (Coreg) 6.25 mg BID PO Last administered on 10/21/18 08:15; Admin Dose 6.25 MG; Start 10/20/18 at 21:00 Levetiracetam 100 ml @ 400 mls/hr Q12 IVPB Last administered on 10/21/18 09:06; Admin Dose 400 MLS/HR; Start 10/20/18 at 21:00 Brimonidine Tartrate (Alphagan P 0.15%) 1 drop BID BOTH EYES Last administered on 10/21/18 08:17; Admin Dose 1 DROP; Start 10/20/18 at 21:00 Eye Lubricant (Artificial Tears Oph) 1 drop QID BOTH EYES Last administered on 10/21/18 13:43; Admin Dose 1 DROP; Start 10/20/18 at 18:30 Fluticasone Propionate (Flonase 0.05% Nasal) 1 spray BID NASAL Last admini stered on 10/21/18 10:44; Admin Dose 1 SPRAY; Start 10/21/18 at 09:00 Sodium Chloride 1,000 ml @ 80 mls/hr [id number] IV Last administered on 3/20/19at 09:04; Admin Dose 80 MLS/HR; Start 10/21/18 at 09:00 Omega Chinchilla DO Oct 21, 2018 15:23
[2018-10-21] MEDS ORDERED: LIDOCAINE 2% (SDV) 5 ML INJ ONE (17:52)
[2018-10-21] MEDS ORDERED: PROPOFOL 20 ML ONE (17:52)
--- NOTE | 2018-10-21 18:13 | PREAC ---
Date/Time of Note Date/Time of Note DATE: 10/21/18 TIME: 18:10 Anesthesia Eval and Record Evaluation Time Pre-Procedure Interview DATE: 10/21/18 TIME: 18:10 Age 78 Sex female NPO: 8 hrs Preoperative diagnosis Abdominal pain Planned procedure EGD Past Medical History Past Medical History: Includes Cardio: HTN, Dyslipidemia Endo: Diabetes GI: Morbid obesity Surgery & Anesthesia Issues No known issue Meds Anticoagulation: Yes Beta Dusty within 24 hr: No Reason Beta Dusty not given: Pt. not on B-Dusty Reported Medications Acetaminophen* (Tylenol*) 325 Mg Tablet, 650 MG PO Q4H PRN for MILD PAIN LEVEL 1-3, TAB 05/19/18 Linagliptin (TRADJENTA) 5 Mg Tablet, 5 MG PO DAILY, TAB 05/19/18 Sennosides* (Senna Lax*) 8.6 Mg Tablet, 1 TAB PO DAILY, TAB 05/19/18 Pantoprazole* (Protonix*) 40 Mg Tablet.dr, 40 MG PO DAILY, TAB 05/19/18 Potassium Chloride* (K-Dur*) 20 Meq Tab.prt.sr, 40 MEQ PO DAILY, TAB.SA 05/19/18 Clopidogrel Bisulfate* (Clopidogrel Bisulfate*) 75 Mg Tablet, 75 MG PO DAILY, #30 TAB 05/19/18 Mv-Mn/FA/Vit K/Lycop/Lut/Zeaxa (Ocuvite Eye + Multi Tablet) 1 Each Tablet, 1 EACH PO DAILY, TAB 05/19/18 Amlodipine Besylate* (Norvasc*) 10 Mg Tablet, 10 MG PO DAILY, TAB 05/19/18 Hydrocodone/Acetaminophen ([place] 5-325 Tablet) 1 Each Tablet, 1 EACH PO Q8H for FOR PAIN 7-04/13, TAB 05/19/18 Naproxen* (Naproxen*) 375 Mg Tablet, 375 MG PO Q8H, TAB 05/19/18 Multivitamin with Minerals (Multivitamins with Minerals) 1 Each Tablet, 1 EACH PO DAILY, TAB 05/19/18 Magnesium Hydroxide* (Milk Of Magnesia*) 400 Mg/5 Ml Oral.susp, 30 ML PO Q24H PRN for NEEDED, ML 05/19/18 Metformin Hcl* (Metformin Hcl*) 500 Mg Tablet, 500 MG PO WITH BREAKFAST DINNE, #60 TAB 05/19/18 Magnesium Oxide* (Magnesium Oxide*) 400 Mg Tablet, 400 MG PO DAILY, TAB 05/19/18 Losartan Potassium* (Losartan Potassium*) 50 Mg Tablet, 50 MG PO BID, TAB HOLD IF SBP BELOW 110 OR AP BELOW 60 05/19/18 Loratadine* (Loratadine*) 10 Mg Tablet, 10 MG PO DAILY, #30 TAB 05/19/18 Atorvastatin* (Atorvastatin*) 80 Mg Tablet, 80 MG PO QHS, #30 TAB 05/19/18 Levetiracetam* (Keppra*) 750 Mg Tablet, 750 MG PO BID, TAB 05/19/18 Hydrochlorothiazide* (Hydrochlorothiazide*) 12.5 Mg Tablet, 12.5 MG PO DAILY, #30 TAB HOLD IF SBP BELOW 110 OR AP BELOW 60 05/19/18 Dextrose (Glucose Gel) 38 Gm Gel..gram., 15 GM PO NEEDED 05/19/18 Gabapentin* (Gabapentin*) 100 Mg Capsule, 100 MG PO Q12H, #90 CAP 05/19/18 Fluticasone Propionate (Flonase Allergy Relief) 9.9 Ml Worth.susp, 1 SPRAY NASAL BID, #1 BOTTLE TO EACH NOSTRIL 05/19/18 Na Phos,M-B/Na Phos,Di-Ba (Fleet Enema Extra) 230 Ml Enema, 1 APPLIC RC Q2D PRN for NEEDED, ENEMA 05/19/18 Ferrous Sulfate* (Ferrous Sulfate*) 325 Mg Tabec, 325 MG PO DAILY, TAB 05/19/18 Bisacodyl* (Bisacodyl*) 10 Mg Supp, 10 MG KS Q24H PRN for NEEDED, SUPP 05/19/18 Cranberry Extract (Cranberry) 425 Mg Capsule, 425 MG PO BID, CAP 05/19/18 Carvedilol* (Carvedilol*) 6.25 Mg Tablet, 6.25 MG PO BID, #60 TAB HOLD IF SBP BELOW 110 OR AP BELOW 60 05/19/18 Diphenhydramine Hcl* (Benadryl*) 25 Mg Cap, 25 MG PO Q6H PRN for ITCHING, CAP 05/19/18 Cholecalciferol* (Vitamin D3*) 1,000 Unit Tablet, 1000 UNIT PO BID, TAB 05/19/18 Ascorbate Calcium (Vitamin C) 500 Mg Tablet, 500 MG PO DAILY, TAB 05/19/18 Cran/Vitc/Mannose/Inulin/Brom (Uti-Stat Liquid) 3,875 Mg/30 Ml Liquid, 30 ML PO BID 05/19/18 Aspirin* (Aspirin* EC) 81 Mg Tablet.dr, 81 MG PO DAILY, TAB 05/19/18 Dextran 70/Hypromellose (Artificial Tears) 1 Each Droperette, 1 EACH OP QID 05/19/18 Current Medications Pantoprazole 80 mg/Sodium Chloride 100 ml @ 10 mls/hr Q10H IV Last administered on 10/21/18at 16:10; Admin Dose 10 MLS/HR; Start 10/18/18 at 09:00 Ondansetron HCl (Zofran Inj) 4 mg Q4H PRN IV NAUSEA AND/OR VOMITING Last administered on 10/19/18at 21:53; Admin Dose 4 MG; Start 10/18/18 at 08:30 Hydralazine HCl (Apresoline) 20 mg Q6H PRN IV sbp>160,dbp>95; Start 10/18/18 at 08:30 Insulin Aspart (Novolog Insulin Pen) NOVOLOG *MILD* ALGORITHM WITH MEALS BEDTIME SC Last administered on 10/21/18at 10:48; Admin Dose 1 UNIT; Start 10/18/18 at 11:30 Atorvastatin Calcium (Lipitor) 40 mg HS PO Last administered on 10/20/18at 21:17; Admin Dose 40 MG; Start 10/18/18 at 21:00 Morphine Sulfate (morphine) 2 mg Q4H PRN IV SEVERE PAIN LEVEL 7-10; Start 10/18/18 at 21:00 Ceftriaxone Sodium 50 ml @ 100 mls/hr Q24H IVPB Last administered on 10/20/18at 21:18; Admin Dose 100 MLS/HR; Start 10/18/18 at 22:00 Miscellaneous Information 1 ea NOTE XX ; Start 10/19/18 at 08:30 Glucose (Glutose) 15 gm Q15M PRN PO DECREASED GLUCOSE; Start 10/19/18 at 08:30 Glucose (Glutose) 22.5 gm Q15M PRN PO DECREASED GLUCOSE; Start 10/19/18 at 08:30 Dextrose (D50w Syringe) 25 ml Q15M PRN IV DECREASED GLUCOSE; Start 10/19/18 at 08:30 Dextrose (D50w Syringe) 50 ml Q15M PRN IV DECREASED GLUCOSE; Start 10/19/18 at 08:30 Glucagon (Glucagen) 1 mg Q15M PRN IM DECREASED GLUCOSE; Start 10/19/18 at 08:30 Glucose (Glutose) 15 gm Q15M PRN BUCCAL DECREASED GLUCOSE; Start 10/19/18 at 08:30 Amiodarone HCl (Cordarone) 200 mg BID PO Last administered on 10/21/18 08:19; Admin Dose 200 MG; Start 10/19/18 at 12:30 Carvedilol (Coreg) 6.25 mg BID PO Last administered on 10/21/18 08:15; Admin Dose 6.25 MG; Start 10/20/18 at 21:00 Levetiracetam 100 ml @ 400 mls/hr Q12 IVPB Last administered on 10/21/18 09:06; Admin Dose 400 MLS/HR; Start 10/20/18 at 21:00 Brimonidine Tartrate (Alphagan P 0.15%) 1 drop BID BOTH EYES Last administered on 10/21/18 08:17; Admin Dose 1 DROP; Start 10/20/18 at 21:00 Eye Lubricant (Artificial Tears Oph) 1 drop QID BOTH EYES Last administered on 10/21/18 16:10; Admin Dose 1 DROP; Start 10/20/18 at 18:30 Fluticasone Propionate (Flonase 0.05% Nasal) 1 spray BID NASAL Last administered on 10/21/18 10:44; Admin Dose 1 SPRAY; Start 10/21/18 at 09:00 Sodium Chloride 1,000 ml @ 80 mls/hr [id number] IV Last administered on 10/21/18 09:04; Admin Dose 80 MLS/HR; Start 10/21/18 at 09:00 Meds reviewed: Yes Allergies Coded Allergies: Penicillins (Unverified Allergy, Severe, ITCHING, RASH, HIVES, 05/19/18) KE PÉREZ SPOKE W/ PT - PT SELF REPORTS ITCHING, RASH, HIVES W/ PCN has tolerated cefazolin and ceftriaxone in January and February 2017 ertapenem (Unverified Allergy, Unknown, 05/19/18) levofloxacin (Verified Adverse Reaction, Severe, arrhythmia, 05/19/18) 02/24 [facility] admission - one episode of non sustained vtach possibly 2/2 fluoroquinolone Allergies Reviewed: Yes Labs/Studies Labs Reviewed: Reviewed by anesthesiologist Result Diagram: 10/21/1861810/21/18 0619 Laboratory Tests 10/21/18 06:19 test: N/A Studies: ECG Pre-procedure Exam Last vitals Vital Signs Date Temp Pulse Resp B/P (MAP) Pulse Ox O2 O2 Flow FiO2 Time Delivery Rate 10/21/18 Non 15 17:42 Rebreather 10/21/18 78 20 143/60 99 17:40 (87) 10/21/18 98.8 16:00 Airway: Adequate mouth opening, Adequate thyromental dist Mallampati: Mallampati III Teeth: Normal Lung: Normal Heart: Normal ASA Physical Status ASA physical status: 3 Emergency: None Planned Anesthetic General/MAC: MAC Planned Pain Management Parenteral pain med Pre-operative Attestations Prior to commencing anesthesia and surgery, the patient was re-evaluated, there was verification of: *The patient's identity *The results of appropriate recent lab work and preoperative vital signs *The above evaluation not changing prior to induction *Anesthetic plan, risk benefits, alternative and complications discussed with patient/family; questions answered; patient/family understands, accepts and wishes to proceed. SARAH DUQUE MD Oct 21, 2018 18:13
--- NOTE | 2018-10-21 18:37 | OPPN ---
Date/Time of Note Date/Time of Note DATE: 10/21/18 TIME: 18:34 Proc Note GI Procedure Date 10/21/18 Indication: diagnostic, treatment Pre-procedure Diagnosis GI bleeding/duodenum Post-procedure Diagnosis Impression: Duodenal ulcer with stigmata of recent bleeding. No clear visible vessel. Random biopsies obtained to rule out H. pylori infection body and antrum the stomach. Otherwise normal EGD. Plan: Continue tonic strip times 24 hours. Continue monitoring H&H every 6 hours and transfuse Add Carafate 1 g suspension 4 times daily. Advance diet as tolerated. . Procedure Performed: Endoscopy (With biopsies) Surgeon DASHAWN JHA MD See signature line [employer] Automation Developer none Anesthesia Type: MAC Anesthesiologist: SARAH DUQUE MD Tourniquet Time none EBL none Transfusion required none Biopsy 1: Gastric body and antrum Grafts/Implants none Tubes/Drains none Complication(s) none Disposition: home (ICU) Procedure Description After informed consent, with the patient/relatives understanding the procedure, its indications, potential risks and complications, including but not limited t o: allergic reaction, bleeding, perforation or infection, and after all pertinent questions were answered to the patients satisfaction, the patient/relatives signed witnessed informed consent. Following this, premedication was administered slowly IV push under careful cardiovascular and respiratory monitoring with pulse oximetry, automatic blood pressure, and night monitor. Once the sedative effect was achieved the patient was place in the left lateral decubitus, the panendoscope was introduced and advanced under visual control. Careful examination of the upper gastrointestinal tract, both on insertion as well as withdrawal of the instrument disclosing the following findings: ESOPHAGUS: the mucosa of the entire esophagus was carefully examined and showed the following findings: the mucosa appears within normal limits. There is no evidence of esophagitis, varices, neoplasm, or stricture. No Hiatal Hernia identified. STOMACH: Upon entrance to the stomach air was insufflated, the gastric jones distended normally. The mucosa of the fundus, body and antrum of the stomach was carefully examined both head-on and on retroflexion, and showed the following findings: the mucosa appears within normal limits with no abnormalities. There is no evidence of gastritis, ulcers or neoplasm. Random biopsies obtained body and antrum the stomach to rule out H. pylori infection PYLORUS: The pylorus was carefully examined and showed the following findings: the pylorus appears patent and within normal limits, with no evidence of gastric outlet obstruction. DUODENUM: The duodenal mucosa was carefully examined in the duodenal bulb as well as the second portion of the duodenum and showed the following findings: 1 cm active duodenal ulcer with a red spot. No clear visible vessel. No therapeutic intervention undertaken as the lesion appears to be stable. Otherwise the mucosa appears unremarkable with no evidence of neoplasm. Copies To: CC: DASHAWN JHA MD ; DASHAWN JHA MD Oct 21, 2018 18:37
--- NOTE | 2018-10-21 18:47 | PAC ---
Date/Time of Note Date/Time of Note DATE: 10/21/18 TIME: 18:46 Post-Anesthesia Notes Post-Anesthesia Note Last documented vital signs Vital Signs Date Temp Pulse Resp B/P (MAP) Pulse Ox O2 O2 Flow FiO2 Time Delivery Rate 10/21/18 89 20 136/61 98 18:00 (86) 10/21/18 Non 15 17:42 Rebreather 10/21/18 98.8 16:00 Activity: WNL Respiratory function: WNL Cardiovascular function: WNL Mental status: Baseline Pain reasonably controlled: Yes Hydration appropriate: Yes Nausea/Vomiting absent: Yes Comments BP:134/67, P:89, T:98,9, Spo2:100% SARAH DUQUE MD Oct 21, 2018 18:47
[2018-10-21] MEDS: ATORVASTATIN 40 MG TAB PO SCH (21:30)
[2018-10-21] MEDS: SUCRALFATE (100 MG/ML) 10ML CUP PO SCH (21:31)
[2018-10-21] MEDS: CEFTRIAXONE 1 GM/50 ML (PMX) 50 ML IVPB SCH (21:32)
[2018-10-22] VITALS (30 sets, daily range): BP systolic 126–166; BP diastolic 44–81; PULSE 55–84; RESP 14–24
[2018-10-22] MEDS: PANTOPRAZOLE IV 80 MG in SOD CHLORIDE 0.9% 100 ML IV SCH ×2 (02:55→13:20)
[2018-10-22] MEDS ORDERED: LIDOCAINE 1% (MPF) 5 ML VIAL SC ONE (06:30)
[2018-10-22] MEDS: INSULIN ASPART [NOVOLOG] 3 ML PEN SC SCH ×4 (07:35→20:30)
[2018-10-22] MEDS: BRIMONIDINE 0.15% 5 ML OPH BOTH EYES SCH ×2 (08:16→20:31)
[2018-10-22] MEDS: AMIODARONE 200 MG TAB PO SCH ×2 (08:16→20:30)
[2018-10-22] MEDS: SUCRALFATE (100 MG/ML) 10ML CUP PO SCH ×4 (08:16→20:31)
[2018-10-22] MEDS: ARTIFICIAL TEARS 15 ML OPH BOTH EYES SCH ×4 (08:16→20:31)
[2018-10-22] MEDS: FLUTICASONE 0.05% 16 GM NAS SPRAY NASAL SCH ×2 (08:17→20:31)
[2018-10-22] MEDS: LEVETIRACETAM 500 MG (PMX) 100 ML IVPB SCH ×2 (08:57→20:29)
[2018-10-22] MEDS: SOD CHLORIDE 0.45% 1,000 ML IV SCH ×2 (11:58→22:30)
--- NOTE | 2018-10-22 12:11 | CONS ---
Assessment/Plan Assessment/Plan Assessment/Plan (Daily) 1. acute hyperkalemia 2. acute Prerenal azotemia from Upper GI bleeding 3. acute Upper GI bleeding 4. History of CVA 5. Left vertebral artery stenosis 6. H/o Hypertension 7. H/o Diabetes 8. H/o History of cardiomyopathy, current echocardiogram with ejection fraction 55% 9. H/o Paroxysmal atrial fibrillation 10. Hypernatremia Plan: s/p GI work up and EGD for upper GI bleeding, Hb 9.1 today Na improved to normal today , continue IVF 1/2 NS at 80 cc/hr will follow up Consultation Date/Type/Reason Admit Date/Time Oct 18, 2018 at 07:52 Initial Consult Date 10/21/18 Type of Consult NEPHROLOGY Requesting Provider: MAGDI EDWARDS MD Date/Time of Note DATE: 10/22/18 TIME: 12:11 Exam/Review of Systems Exam Vitals Vital Signs Date Temp Pulse Resp B/P (MAP) Pulse Ox O2 O2 Flow FiO2 Time Delivery Rate 10/22/18 70 21 97 09:00 10/22/18 98.4 140/62 Room Air 08:00 (88) 10/21/18 15 17:42 Intake and Output 10/21/18 10/21/18 10/22/18 1515:00 23:00 07:00 IntakeIntake Total 760 ml 870 ml 630 ml OutputOutput Total 610 ml 600 ml 490 ml BalanceBalance 150 ml 270 ml 140 ml Exam Constitutional: alert , no distress, following commands Head: normocephalic Respiratory: clear to auscultation, normal air movement Cardiovascular: regular rate and rhythm (S1-S2 heard) Gastrointestinal: soft, non-tender, bowel sounds Extremities: edema Results Result Diagram: 10/22/18 0517 10/22/18 0517 Results 24hrs Laboratory Tests Test 10/21/18 17:32 10/21/18 19:07 10/21/18 21:54 10/22/18 05:17 Bedside Glucose 139 137 Hemoglobin 8.1 L 7.9 L Hematocrit 24.5 L 24.0 L White Blood Count 10.2 Red Blood Count 2.45 L Mean Corpuscular 98.0 Volume Mean Corpuscular 32.2 Hemoglobin Mean Corpuscular 32.9 Hemoglobin Concent Red Cell 14.6 H Distribution Width Platelet Count 161 Mean Platelet Volume 11.0 H Immature 1.600 H Granulocytes % Neutrophils % 76.9 Lymphocytes % 12.4 L Monocytes % 4.2 Eosinophils % 4.6 Basophils % 0.3 Nucleated Red Blood 1.7 H Cells % Immature 0.160 H Granulocytes # Neutrophils # 7.8 H Lymphocytes # 1.3 Monocytes # 0.4 Eosinophils # 0.5 Basophils # 0.0 Nucleated Red Blood 0.2 H Cells # Sodium Level 144 Potassium Level 3.8 Chloride Level 119 H Carbon Dioxide Level 19 L Anion Gap 6 Blood Urea Nitrogen 23 #H Creatinine 0.82 Est Glomerular Filtrat Rate mL/min Glucose Level 128 Calcium Level 7.7 L Test 10/22/18 07:58 Bedside Glucose 130 Medications Medication Current Medications Pantoprazole 80 mg/Sodium Chloride 100 ml @ 10 mls/hr Q10H IV Last administered on 10/22/18at 02:55; Admin Dose 10 MLS/HR; Start 10/18/18 at 09:00 Ondansetron HCl (Zofran Inj) 4 mg Q4H PRN IV NAUSEA AND/OR VOMITING Last administered on 10/19/18at 21:53; Admin Dose 4 MG; Start 10/18/18 at 08:30 Hydralazine HCl (Apresoline) 20 mg Q6H PRN IV sbp>160,dbp>95; Start 10/18/18 at 08:30 Insulin Aspart (Novolog Insulin Pen) NOVOLOG *MILD* ALGORITHM WITH MEALS BEDTIME SC Last administered on 10/21/18at 10:48; Admin Dose 1 UNIT; Start 10/18/18 at 11:30 Atorvastatin Calcium (Lipitor) 40 mg HS PO Last administered on 10/21/18at 21:30; Admin Dose 40 MG; Start 10/18/18 at 21:00 Morphine Sulfate (morphine) 2 mg Q4H PRN IV SEVERE PAIN LEVEL 7-10; Start 10/18/18 at 21:00 Ceftriaxone Sodium 50 ml @ 100 mls/hr Q24H IVPB Last administered on 10/21/18at 21:32; Admin Dose 100 MLS/HR; Start 10/18/18 at 22:00 Miscellaneous Information 1 ea NOTE XX ; Start 10/19/18 at 08:30 Glucose (Glutose) 15 gm Q15M PRN PO DECREASED GLUCOSE; Start 10/19/18 at 08:30 Glucose (Glutose) 22.5 gm Q15M PRN PO DECREASED GLUCOSE; Start 10/19/18 at 08:30 Dextrose (D50w Syringe) 25 ml Q15M PRN IV DECREASED GLUCOSE; Start 10/19/18 at 08:30 Dextrose (D50w Syringe) 50 ml Q15M PRN IV DECREASED GLUCOSE; Start 10/19/18 at 08:30 Glucagon (Glucagen) 1 mg Q15M PRN IM DECREASED GLUCOSE; Start 10/19/18 at 08:30 Glucose (Glutose) 15 gm Q15M PRN BUCCAL DECREASED GLUCOSE; Start 10/19/18 at 08:30 Amiodarone HCl (Cordarone) 200 mg BID PO Last administered on 10/22/18 08:16; Admin Dose 200 MG; Start 10/19/18 at 12:30 Carvedilol (Coreg) 6.25 mg BID PO Last administered on 10/22/18 08:15; Admin Dose 6.25 MG; Start 10/20/18 at 21:00 Levetiracetam 100 ml @ 400 mls/hr Q12 IVPB Last administered on 10/22/18 08:57; Admin Dose 400 MLS/HR; Start 10/20/18 at 21:00 Brimonidine Tartrate (Alphagan P 0.15%) 1 drop BID BOTH EYES Last administered on 10/22/18 08:16; Admin Dose 1 DROP; Start 10/20/18 at 21:00 Eye Lubricant (Artificial Tears Oph) 1 drop QID BOTH EYES Last administered on 10/22/18 12:06; Admin Dose 1 DROP; Start 10/20/18 at 18:30 Fluticasone Propionate (Flonase 0.05% Nasal) 1 spray BID NASAL Last administered on 10/22/18 08:17; Admin Dose 1 SPRAY; Start 10/21/18 at 09:00 Sodium Chloride 1,000 ml @ 80 mls/hr [id number] IV Last administered on 10/22/18 11:58; Admin Dose 80 MLS/HR; Start 10/21/18 at 09:00 Sucralfate (Carafate Susp) 1 gm QID PO Last administered on 10/22/18 08:16; Admin Dose 1 GM; Start 3/20/19 at 19:00 IV Flush (NS 10 ml) 10 ml PRN PRN IV IV PROTOCOL; Start 10/22/18 at 12:00 RICK ESCAMILLA MD Oct 22, 2018 12:11
[2018-10-22] MEDS ORDERED: POTASSIUM CHLORIDE (SR) 20 MEQ TAB PO STA (12:58)
--- NOTE | 2018-10-22 12:58 | CONS ---
Assessment/Plan Assessment/Plan Hospital Course (Demo Recall) Upper GI bleed History of CVA Left vertebral artery stenosis Hypertension Cerebral artery disease Diabetes History of cardiomyopathy, current echocardiogram with ejection fraction 55% Paroxysmal atrial fibrillation -Patient with upper GI bleed and thought secondary to NSAID use and Plavix. Patient was on Plavix because of known cerebrovascular disease and history of CVA on previous admissions. Undergoing GI work up -Patient with paroxysmal atrial fibrillation noted on telemetry and currently sinus rhythm. Given recent GI bleed, cannot tolerate anticoagulation. Continue beta-katherine and amiodarone as tolerated. Consultation Date/Type/Reason Admit Date/Time Oct 18, 2018 at 07:52 Initial Consult Date 10/18/18 Type of Consult Cardiology Requesting Provider: MAGDI EDWARDS MD Date/Time of Note DATE: 10/22/18 TIME: 12:56 24 HR Interval Summary Free Text/Dictation no sob, cp, palp Exam/Review of Systems Vital Signs Vitals Vital Signs Date Temp Pulse Resp B/P (MAP) Pulse Ox O2 O2 Flow FiO2 Time Delivery Rate 10/22/18 98.2 74 22 137/52 97 Room Air 12:00 (80) 10/21/18 15 17:42 Intake and Output 10/21/18 10/21/18 10/22/18 1515:00 23:00 07:00 IntakeIntake Total 760 ml 870 ml 630 ml OutputOutput Total 610 ml 600 ml 490 ml BalanceBalance 150 ml 270 ml 140 ml Exam Exam nad Constitutional: alert Head: normocephalic Respiratory: other (course bs, no wheeze) Cardiovascular: regular rate and rhythm (s1s2) Gastrointestinal: soft, non-tender, bowel sounds Extremities: edema (trace) Labs Result Diagram: 10/22/18 1227 10/22/18 0517 Results 24hrs Laboratory Tests Test 10/21/18 17:32 10/21/18 19:07 10/21/18 21:54 10/22/18 05:17 Bedside Glucose 139 137 Hemoglobin 8.1 L 7.9 L Hematocrit 24.5 L 24.0 L White Blood Count 10.2 Red Blood Count 2.45 L Mean Corpuscular 98.0 Volume Mean Corpuscular 32.2 Hemoglobin Mean Corpuscular 32.9 Hemoglobin Concent Red Cell 14.6 H Distribution Width Platelet Count 161 Mean Platelet Volume 11.0 H Immature 1.600 H Granulocytes % Neutrophils % 76.9 Lymphocytes % 12.4 L Monocytes % 4.2 Eosinophils % 4.6 Basophils % 0.3 Nucleated Red Blood 1.7 H Cells % Immature 0.160 H Granulocytes # Neutrophils # 7.8 H Lymphocytes # 1.3 Monocytes # 0.4 Eosinophils # 0.5 Basophils # 0.0 Nucleated Red Blood 0.2 H Cells # Sodium Level 144 Potassium Level 3.8 Chloride Level 119 H Carbon Dioxide Level 19 L Anion Gap 6 Blood Urea Nitrogen 23 #H Creatinine 0.82 Est Glomerular Filtrat Rate mL/min Glucose Level 128 Calcium Level 7.7 L Test 10/22/18 07:58 10/22/18 12:00 10/22/18 12:27 Bedside Glucose 130 125 Hemoglobin 7.6 L Hematocrit 23.2 L Medications Medications Current Medications Pantoprazole 80 mg/Sodium Chloride 100 ml @ 10 mls/hr Q10H IV Last adminis tered on 10/22/18at 02:55; Admin Dose 10 MLS/HR; Start 10/18/18 at 09:00 Ondansetron HCl (Zofran Inj) 4 mg Q4H PRN IV NAUSEA AND/OR VOMITING Last administered on 10/19/18at 21:53; Admin Dose 4 MG; Start 10/18/18 at 08:30 Hydralazine HCl (Apresoline) 20 mg Q6H PRN IV sbp>160,dbp>95; Start 10/18/18 at 08:30 Insulin Aspart (Novolog Insulin Pen) NOVOLOG *MILD* ALGORITHM WITH MEALS BEDTIME SC Last administered on 10/21/18at 10:48; Admin Dose 1 UNIT; Start 10/18/18 at 11:30 Atorvastatin Calcium (Lipitor) 40 mg HS PO Last administered on 10/21/18at 21:30; Admin Dose 40 MG; Start 10/18/18 at 21:00 Morphine Sulfate (morphine) 2 mg Q4H PRN IV SEVERE PAIN LEVEL 7-10; Start 10/18/18 at 21:00 Ceftriaxone Sodium 50 ml @ 100 mls/hr Q24H IVPB Last administered on 10/21/18at 21:32; Admin Dose 100 MLS/HR; Start 10/18/18 at 22:00 Miscellaneous Information 1 ea NOTE XX ; Start 10/19/18 at 08:30 Glucose (Glutose) 15 gm Q15M PRN PO DECREASED GLUCOSE; Start 10/19/18 at 08:30 Glucose (Glutose) 22.5 gm Q15M PRN PO DECREASED GLUCOSE; Start 10/19/18 at 08:30 Dextrose (D50w Syringe) 25 ml Q15M PRN IV DECREASED GLUCOSE; Start 10/19/18 at 08:30 Dextrose (D50w Syringe) 50 ml Q15M PRN IV DECREASED GLUCOSE; Start 10/19/18 at 08:30 Glucagon (Glucagen) 1 mg Q15M PRN IM DECREASED GLUCOSE; Start 10/19/18 at 08:30 Glucose (Glutose) 15 gm Q15M PRN BUCCAL DECREASED GLUCOSE; Start 10/19/18 at 08:30 Amiodarone HCl (Cordarone) 200 mg BID PO Last administered on 10/22/18 08:16; Admin Dose 200 MG; Start 10/19/18 at 12:30 Carvedilol (Coreg) 6.25 mg BID PO Last administered on 10/22/18 08:15; Admin Dose 6.25 MG; Start 10/20/18 at 21:00 Levetiracetam 100 ml @ 400 mls/hr Q12 IVPB Last administered on 10/22/18 08:57; Admin Dose 400 MLS/HR; Start 10/20/18 at 21:00 Brimonidine Tartrate (Alphagan P 0.15%) 1 drop BID BOTH EYES Last administered on 10/22/18 08:16; Admin Dose 1 DROP; Start 10/20/18 at 21:00 Eye Lubricant (Artificial Tears Oph) 1 drop QID BOTH EYES Last administered on 10/22/18 12:06; Admin Dose 1 DROP; Start 10/20/18 at 18:30 Fluticasone Propionate (Flonase 0.05% Nasal) 1 spray BID NASAL Last administered on 10/22/18 08:17; Admin Dose 1 SPRAY; Start 10/21/18 at 09:00 Sodium Chloride 1,000 ml @ 80 mls/hr [id number] IV Last administered on 10/22/18 11:58; Admin Dose 80 MLS/HR; Start 10/21/18 at 09:00 Sucralfate (Carafate Susp) 1 gm QID PO Last administered on 3/21/19at 08:16; Admin Dose 1 GM; Start 10/21/18 at 19:00 IV Flush (NS 10 ml) 10 ml PRN PRN IV IV PROTOCOL; Start 10/22/18 at 12:00 Omega Chinchilla DO Oct 22, 2018 12:58
[2018-10-22] MEDS ORDERED: MAGNESIUM SULFATE 2 GM/50 ML 50 ML IVPB ONE (13:00)
--- NOTE | 2018-10-22 14:13 | PN ---
Date/Time of Note Date/Time of Note DATE: 10/22/18 TIME: 14:06 Assessment/Plan VTE Prophylaxis Risk score (from Nsg)>0 risk: 9 SCD applied (from Nsg): Yes Pharmacological prophylaxis: other (scds) Lines/Catheters IV Catheter Type (from Nrsg): PICC Line Central line still needed: Yes (meds) Urinary Cath still in place: Yes Reason Cath still needed: other (indicate) (monitor output) Assessment/Plan Hospital Course Assessment: Upper GI bleeding/hematemesis EGD 10/18/18 Impression: Probable duodenal ulcer with large amounts of clots. No evidence of active bleeding. Limited examination. Clots were not removed as there appears to be no active bleeding. EGD 10/21/18 Impression: Duodenal ulcer with stigmata of recent bleeding. No clear visible vessel. Random biopsies obtained to rule out H. pylori infection body and antrum the stomach. Otherwise normal EGD. Anemia likely secondary to above. Extensive use of nonsteroidal inflammatory agents. Unclear use of Plavix. Listed but patient denies taking it Status post right hemispheric CVA with left hemiparesis. History of hypertension. History of diabetes mellitus. History of dyslipidemia. Moderate obesity. Plan: d/c PPI gtt chagne to BID. Continue monitoring H&H every 6 hours and transfuse Carafate 1 g suspension 4 times daily. Advance diet as tolerated. Patient seen in collaboration with Dr. Centeno/Tao Subjective: Course reviewed with nursing staff Patient interviewed and examined All labs, imaging and other results reviewed Pt resting in bed, remains in ICU, no overt signs of GI bleed Encourage PO intake, will continue PPI bid and Carafate PHYSICAL EXAMINATION: GENERAL: Well developed, well nourished, alert & oriented SKIN: No lesions HEAD: Normocephalic, atraumatic, no tenderness. EYES: Pupils equal reactive to light and accommodation, full extraocular movements, sclera clear, non-icteric, no discharge. EARS/NOSE AND THROAT: Ears normal, nose normal, oropharynx normal, oral membranes well hydrated without lesions. NECK: Supple, no masses, NGT in place CHEST: Inspection within normal limits. CARDIOVASCULAR: Heart: Regular rate and rhythm. RESPIRATORY: Lungs clear to auscultation GASTROINTESTINAL AND LIVER: Abdomen: Soft, diffuse tenderness, mildly distended, no hernias, no masses, no organomegaly, no ascites, no guarding, no rebound tenderness, normoactive bowel sounds. Rectal: Deferred. EXTREMITIES: No cyanosis, clubbing or edema. Result Diagram: 10/22/18 1227 10/22/18 0517 Results 24hrs Laboratory Tests Test 10/21/18 17:32 10/21/18 19:07 10/21/18 21:54 10/22/18 05:17 Bedside Glucose 139 137 Hemoglobin 8.1 L 7.9 L Hematocrit 24.5 L 24.0 L White Blood Count 10.2 Red Blood Count 2.45 L Mean Corpuscular 98.0 Volume Mean Corpuscular 32.2 Hemoglobin Mean Corpuscular 32.9 Hemoglobin Concent Red Cell 14.6 H Distribution Width Platelet Count 161 Mean Platelet Volume 11.0 H Immature 1.600 H Granulocytes % Neutrophils % 76.9 Lymphocytes % 12.4 L Monocytes % 4.2 Eosinophils % 4.6 Basophils % 0.3 Nucleated Red Blood 1.7 H Cells % Immature 0.160 H Granulocytes # Neutrophils # 7.8 H Lymphocytes # 1.3 Monocytes # 0.4 Eosinophils # 0.5 Basophils # 0.0 Nucleated Red Blood 0.2 H Cells # Sodium Level 144 Potassium Level 3.8 Chloride Level 119 H Carbon Dioxide Level 19 L Anion Gap 6 Blood Urea Nitrogen 23 #H Creatinine 0.82 Est Glomerular Filtrat Rate mL/min Glucose Level 128 Calcium Level 7.7 L Test 10/22/18 07:58 10/22/18 12:00 10/22/18 12:27 Bedside Glucose 130 125 Hemoglobin 7.6 L Hematocrit 23.2 L Exam/Review of Systems Exam Vitals Vital Signs Date Temp Pulse Resp B/P (MAP) Pulse Ox O2 O2 Flow FiO2 Time Delivery Rate 10/22/18 98.2 74 22 137/52 97 Room Air 12:00 (80) 10/21/18 15 17:42 Intake and Output 10/21/18 10/21/18 10/22/18 1515:00 23:00 07:00 IntakeIntake Total 760 ml 870 ml 630 ml OutputOutput Total 610 ml 600 ml 490 ml BalanceBalance 150 ml 270 ml 140 ml Results Results 24hrs Laboratory Tests Test 10/21/18 17:32 10/21/18 19:07 10/21/18 21:54 10/22/18 05:17 Bedside Glucose 139 137 Hemoglobin 8.1 L 7.9 L Hematocrit 24.5 L 24.0 L White Blood Count 10.2 Red Blood Count 2.45 L Mean Corpuscular 98.0 Volume Mean Corpuscular 32.2 Hemoglobin Mean Corpuscular 32.9 Hemoglobin Concent Red Cell 14.6 H Distribution Width Platelet Count 161 Mean Platelet Volume 11.0 H Immature 1.600 H Granulocytes % Neutrophils % 76.9 Lymphocytes % 12.4 L Monocytes % 4.2 Eosinophils % 4.6 Basophils % 0.3 Nucleated Red Blood 1.7 H Cells % Immature 0.160 H Granulocytes # Neutrophils # 7.8 H Lymphocytes # 1.3 Monocytes # 0.4 Eosinophils # 0.5 Basophils # 0.0 Nucleated Red Blood 0.2 H Cells # Sodium Level 144 Potassium Level 3.8 Chloride Level 119 H Carbon Dioxide Level 19 L Anion Gap 6 Blood Urea Nitrogen 23 #H Creatinine 0.82 Est Glomerular Filtrat Rate mL/min Glucose Level 128 Calcium Level 7.7 L Test 10/22/18 07:58 10/22/18 12:00 10/22/18 12:27 Bedside Glucose 130 125 Hemoglobin 7.6 L Hematocrit 23.2 L Medications Medication Current Medications Pantoprazole 80 mg/Sodium Chloride 100 ml @ 10 mls/hr Q10H IV Last administered on 10/22/18at 13:20; Admin Dose 10 MLS/HR; Start 10/18/18 at 09:00 Ondansetron HCl (Zofran Inj) 4 mg Q4H PRN IV NAUSEA AND/OR VOMITING Last administered on 10/19/18at 21:53; Admin Dose 4 MG; Start 10/18/18 at 08:30 Hydralazine HCl (Apresoline) 20 mg Q6H PRN IV sbp>160,dbp>95; Start 10/18/18 at 08:30 Insulin Aspart (Novolog Insulin Pen) NOVOLOG *MILD* ALGORITHM WITH MEALS BEDTIME SC Last administered on 10/21/18at 10:48; Admin Dose 1 UNIT; Start 10/18/18 at 11:30 Atorvastatin Calcium (Lipitor) 40 mg HS PO Last administered on 10/21/18at 21:30; Admin Dose 40 MG; Start 10/18/18 at 21:00 Morphine Sulfate (morphine) 2 mg Q4H PRN IV SEVERE PAIN LEVEL 7-10; Start 10/18/18 at 21:00 Ceftriaxone Sodium 50 ml @ 100 mls/hr Q24H IVPB Last administered on 10/21/18at 21:32; Admin Dose 100 MLS/HR; Start 10/18/18 at 22:00 Miscellaneous Information 1 ea NOTE XX ; Start 10/19/18 at 08:30 Glucose (Glutose) 15 gm Q15M PRN PO DECREASED GLUCOSE; Start 10/19/18 at 08:30 Glucose (Glutose) 22.5 gm Q15M PRN PO DECREASED GLUCOSE; Start 10/19/18 at 08:30 Dextrose (D50w Syringe) 25 ml Q15M PRN IV DECREASED GLUCOSE; Start 10/19/18 at 08:30 Dextrose (D50w Syringe) 50 ml Q15M PRN IV DECREASED GLUCOSE; Start 10/19/18 at 08:30 Glucagon (Glucagen) 1 mg Q15M PRN IM DECREASED GLUCOSE; Start 10/19/18 at 08:30 Glucose (Glutose) 15 gm Q15M PRN BUCCAL DECREASED GLUCOSE; Start 10/19/18 at 08:30 Amiodarone HCl (Cordarone) 200 mg BID PO Last administered on 10/22/18 08:16; Admin Dose 200 MG; Start 10/19/18 at 12:30 Carvedilol (Coreg) 6.25 mg BID PO Last administered on 10/22/18 08:15; Admin Dose 6.25 MG; Start 10/20/18 at 21:00 Levetiracetam 100 ml @ 400 mls/hr Q12 IVPB Last administered on 10/22/18 08:57; Admin Dose 400 MLS/HR; Start 10/20/18 at 21:00 Brimonidine Tartrate (Alphagan P 0.15%) 1 drop BID BOTH EYES Last administered on 10/22/18 08:16; Admin Dose 1 DROP; Start 10/20/18 at 21:00 Eye Lubricant (Artificial Tears Oph) 1 drop QID BOTH EYES Last administered on 10/22/18 12:06; Admin Dose 1 DROP; Start 10/20/18 at 18:30 Fluticasone Propionate (Flonase 0.05% Nasal) 1 spray BID NASAL Last administered on 10/22/18 08:17; Admin Dose 1 SPRAY; Start 10/21/18 at 09:00 Sodium Chloride 1,000 ml @ 80 mls/hr [id number] IV Last administered on 10/22/18at 11:58; Admin Dose 80 MLS/HR; Start 10/21/18 at 09:00 Sucralfate (Carafate Susp) 1 gm QID PO Last administered on 10/22/18at 13:20; Admin Dose 1 GM; Start 10/21/18 at 19:00 IV Flush (NS 10 ml) 10 ml PRN PRN IV IV PROTOCOL; Start 10/22/18 at 12:00 Magnesium Sulfate 50 ml @ 25 mls/hr ONCE ONCE IVPB Last administered on 10/22/18at 13:20; Admin Dose 25 MLS/HR; Start 10/22/18 at 13:00; Stop 10/22/18 at 14:59 ALPHONSO BRAND Oct 22, 2018 14:13
[2018-10-22] MEDS: ATORVASTATIN 40 MG TAB PO SCH (20:29)
[2018-10-22] MEDS: CEFTRIAXONE 1 GM/50 ML (PMX) 50 ML IVPB SCH (23:25)
[2018-10-23] VITALS (11 sets, daily range): BP systolic 123–176; BP diastolic 58–75; PULSE 63–78; RESP 18–20
[2018-10-23] MEDS ORDERED: PANTOPRAZOLE 40 MG INJ IV SCH (06:00)
[2018-10-23] MEDS: SOD CHLORIDE 0.45% 1,000 ML IV SCH ×2 (06:27→22:40)
[2018-10-23] MEDS: hydrALAzine 20 MG INJ IV PRN (06:37)
--- NOTE | 2018-10-23 07:27 | PN ---
DATE: 10/22/2018 LOCATION: Intensive care unit SUBJECTIVE: Followup on acute upper GI bleed, CVA, hypertension, xepjh-hy-bkqmhhd kidney disease, ca rdiomyopathy, paroxysmal atrial fibrillation. The patient remains in ICU and her hemoglobin dropped to 7.9 this morning from 8.7 yesterday. The patient did not have any melena. The patient does appea r pale, also looks withdrawn but responsive. No reported fever or chills. No reported hematemesis. On telemetry, patient did have episodes of paroxysmal atrial fibrillation, currently in sinus rhythm. PHYSICAL EXAMINATION: GENERAL: Revealed the patient to be awake, alert. VITAL SIGNS: Temperature 98.6, pulse 62, respirations 21, blood pressure 145/60, O2 sat 96%. HEENT: Conjunctivae are pale. Lids are normal. Oropharynx is with pale mucosa. Nose and ears are normal. NECK: Supple. No mass or thyromegaly. CHEST: Diminished air entry at bases. CARDIOVASCULAR: S1, S2 normal. No murmur, gallop or rub. ABDOMEN: Soft, nondistended, nontender. No palpable mass. EXTREMITIES: No leg edema present. NEUROLOGIC: The patient is awake, alert with left-sided hemiplegia. SKIN: Without acute rash. LABORATORY DATA: Sodium 144, potassium 3.8, BUN 23, creatinine 0.8, glucose 128, calcium 7.3. Hemog lobin 7.9. DIAGNOSTIC STUDY: Repeat EGD revealed duodenal ulcer with stigmata of recent bleeding. No clear vis ible vessels. Biopsy for H. pylori pending. IMPRESSION AND PLAN: 1. Upper gastrointestinal bleed due to duodenal ulcer. The patient will be kept in ICU, to monitor H and H, also will be continued on IV Protonix. 2. Guwtu-gf-tahnhju kidney disease. The patient's BUN and creatinine have improved. The patient re nicki on IV fluid. 3. Cardiomyopathy. Continue carvedilol. 4. Recent urinary tract infection. Continue ceftriaxone. Urine culture was sent again and it is st ill positive for Escherichia coli sensitive to Rocephin. 5. Hypertension. Blood pressure well controlled with carvedilol. 6. Paroxysmal atrial fibrillation. The patient is currently in sinus rhythm. Continue amiodarone. 7. Seizure disorder. Continue Keppra. 8. History of cerebrovascular accident. The patient cannot be on antiplatelet agent at this time du e to massive upper gastrointestinal bleed. We will wait for GI clearance. Plan of care discussed with the patient's nurse, Mario, as well as consultants. The patient remai ns critically ill and will be monitored in the ICU. I also met with patient's daughter and updated h er regarding patient's condition and plan of care. TOTAL CRITICAL CARE TIME SPENT: 30 minutes Dictated By: MAGDI BERGERON/GRACE Conf#: [id number] DID#: [id number]
[2018-10-23] MEDS: INSULIN ASPART [NOVOLOG] 3 ML PEN SC SCH ×4 (08:00→20:35)
--- NOTE | 2018-10-23 08:30 | CONS ---
Assessment/Plan Assessment/Plan Assessment/Plan (Daily) 1. acute hyperkalemia 2. acute Prerenal azotemia from Upper GI bleeding 3. acute Upper GI bleeding 4. History of CVA 5. Left vertebral artery stenosis 6. H/o Hypertension 7. H/o Diabetes 8. H/o History of cardiomyopathy, current echocardiogram with ejection fraction 55% 9. H/o Paroxysmal atrial fibrillation 10. Hypernatremia Plan: s/p GI work up and EGD for upper GI bleeding, Hb 9.1 today Na improved to normal today , continue IVF 1/2 NS at 50 cc/hr will follow up Consultation Date/Type/Reason Admit Date/Time Oct 18, 2018 at 07:52 Initial Consult Date 10/21/18 Type of Consult NEPHROLOGY Requesting Provider: MAGDI EDWARDS MD Date/Time of Note DATE: 10/23/18 TIME: 08:30 Exam/Review of Systems Exam Vitals Vital Signs Date Temp Pulse Resp B/P (MAP) Pulse Ox O2 O2 Flow FiO2 Time Delivery Rate 10/23/18 97.7 78 19 155/70 95 08:01 (98) 10/22/18 Room Air 18:00 10/22/18 2 13:00 Intake and Output 10/22/18 10/22/18 10/23/18 1515:00 23:00 07:00 IntakeIntake Total 945 ml 1921 ml 730 ml OutputOutput Total 700 ml 275 ml 1900 ml BalanceBalance 245 ml 1646 ml -1170 ml Exam Constitutional: alert (No apparent distress, following commands, family bedside) Head: normocephalic Respiratory: clear to auscultation, normal air movement Cardiovascular: regular rate and rhythm (S1-S2 heard) Gastrointestinal: soft, non-tender, bowel sounds Extremities: edema Results Result Diagram: 10/23/18 0554 10/23/18 0555 Results 24hrs Laboratory Tests Test 10/22/18 12:00 10/22/18 12:27 10/22/18 17:23 10/22/18 18:12 Bedside Glucose 125 128 Hemoglobin 7.6 L 9.1 L Hematocrit 23.2 L 27.3 L Test 10/22/18 20:29 10/23/18 00:12 10/23/18 05:54 10/23/18 05:55 Bedside Glucose 123 Hemoglobin 8.8 L 9.1 L Hematocrit 26.4 L 27.1 L White Blood Count 9.3 Red Blood Count 2.90 L Mean Corpuscular 93.4 Volume Mean Corpuscular 31.4 Hemoglobin Mean Corpuscular 33.6 Hemoglobin Concent Red Cell 13.8 Distribution Width Platelet Count 153 Mean Platelet 10.6 H Volume Immature 1.700 H Granulocytes % Neutrophils % 77.5 H Lymphocytes % 11.1 L Monocytes % 3.9 Eosinophils % 5.4 Basophils % 0.4 Nucleated Red 1.4 H Blood Cells % Immature 0.160 H Granulocytes # Neutrophils # 7.2 Lymphocytes # 1.0 Monocytes # 0.4 Eosinophils # 0.5 Basophils # 0.0 Nucleated Red 0.1 H Blood Cells # Sodium Level 137 Potassium Level 3.9 Chloride Level 108 # Carbon Dioxide 23 Level Anion Gap 6 Blood Urea 10 # Nitrogen Creatinine 0.71 Est Glomerular Filtrat Rate mL/min Glucose Level 117 Calcium Level 7.8 L Test 10/23/18 05:59 10/23/18 07:58 Lab Scanned Report REFERENCE LAB Bedside Glucose 120 Medications Medication Current Medications Ondansetron HCl (Zofran Inj) 4 mg Q4H PRN IV NAUSEA AND/OR VOMITING Last administered on 10/19/18at 21:53; Admin Dose 4 MG; Start 10/18/18 at 08:30 Hydralazine HCl (Apresoline) 20 mg Q6H PRN IV sbp>160,dbp>95 Last administered on 10/23/18at 06:37; Admin Dose 20 MG; Start 10/18/18 at 08:30 Insulin Aspart (Novolog Insulin Pen) NOVOLOG *MILD* ALGORITHM WITH MEALS BEDTIME SC Last administered on 10/21/18at 10:48; Admin Dose 1 UNIT; Start 10/18/18 at 11:30 Atorvastatin Calcium (Lipitor) 40 mg HS PO Last administered on 10/22/18at 20:29; Admin Dose 40 MG; Start 10/18/18 at 21:00 Morphine Sulfate (morphine) 2 mg Q4H PRN IV SEVERE PAIN LEVEL 7-10; Start 10/18/18 at 21:00 Ceftriaxone Sodium 50 ml @ 100 mls/hr Q24H IVPB Last administered on 10/22/18at 23:25; Admin Dose 100 MLS/HR; Start 10/18/18 at 22:00 Miscellaneous Information 1 ea NOTE XX ; Start 10/19/18 at 08:30 Glucose (Glutose) 15 gm Q15M PRN PO DECREASED GLUCOSE; Start 10/19/18 at 08:30 Glucose (Glutose) 22.5 gm Q15M PRN PO DECREASED GLUCOSE; Start 10/19/18 at 08:30 Dextrose (D50w Syringe) 25 ml Q15M PRN IV DECREASED GLUCOSE; Start 10/19/18 at 08:30 Dextrose (D50w Syringe) 50 ml Q15M PRN IV DECREASED GLUCOSE; Start 10/19/18 at 08:30 Glucagon (Glucagen) 1 mg Q15M PRN IM DECREASED GLUCOSE; Start 10/19/18 at 08:30 Glucose (Glutose) 15 gm Q15M PRN BUCCAL DECREASED GLUCOSE; Start 10/19/18 at 08:30 Amiodarone HCl (Cordarone) 200 mg BID PO Last administered on 10/22/18 20:30; Admin Dose 200 MG; Start 10/19/18 at 12:30 Carvedilol (Coreg) 6.25 mg BID PO Last administered on 10/22/18 20:30; Admin Dose 6.25 MG; Start 10/20/18 at 21:00 Levetiracetam 100 ml @ 400 mls/hr Q12 IVPB Last administered on 10/22/18 20:29; Admin Dose 400 MLS/HR; Start 10/20/18 at 21:00 Brimonidine Tartrate (Alphagan P 0.15%) 1 drop BID BOTH EYES Last administered on 10/22/18 20:31; Admin Dose 1 DROP; Start 10/20/18 at 21:00 Eye Lubricant (Artificial Tears Oph) 1 drop QID BOTH EYES Last administered on 10/22/18 20:31; Admin Dose 1 DROP; Start 10/20/18 at 18:30 Fluticasone Propionate (Flonase 0.05% Nasal) 1 spray BID NASAL Last administered on 10/22/18 20:31; Admin Dose 1 SPRAY; Start 10/21/18 at 09:00 Sodium Chloride 1,000 ml @ 80 mls/hr [id number] IV Last administered on 10/23/18 06:27; Admin Dose 80 MLS/HR; Start 10/21/18 at 09:00 Sucralfate (Carafate Susp) 1 gm QID PO Last administered on 10/22/18at 20:31; Admin Dose 1 GM; Start 10/21/18 at 19:00 IV Flush (NS 10 ml) 10 ml PRN PRN IV IV PROTOCOL; Start 10/22/18 at 12:00 Pantoprazole (Protonix Iv) 40 mg BID@06,18 IV Last administered on 10/23/18at 05:58; Admin Dose 40 MG; Start 10/23/18 at 06:00 RICK ESCAMILLA MD Oct 23, 2018 08:30
[2018-10-23] MEDS: AMIODARONE 200 MG TAB PO SCH ×2 (09:21→20:29)
[2018-10-23] MEDS: SUCRALFATE (100 MG/ML) 10ML CUP PO SCH ×4 (09:21→20:28)
[2018-10-23] MEDS: FLUTICASONE 0.05% 16 GM NAS SPRAY NASAL SCH ×2 (09:24→20:29)
[2018-10-23] MEDS: BRIMONIDINE 0.15% 5 ML OPH BOTH EYES SCH ×2 (09:24→20:29)
[2018-10-23] MEDS: ARTIFICIAL TEARS 15 ML OPH BOTH EYES SCH ×4 (09:24→20:30)
[2018-10-23] MEDS: LEVETIRACETAM 500 MG (PMX) 100 ML IVPB SCH ×2 (09:29→20:28)
--- NOTE | 2018-10-23 13:49 | CONS ---
Assessment/Plan Assessment/Plan Assessment/Plan (Daily) Assessment: Upper GI bleed History of CVA Left vertebral artery stenosis Hypertension Cerebral artery disease Diabetes History of cardiomyopathy, current echocardiogram with ejection fraction 55% Paroxysmal atrial fibrillation Plan: continue amiodarone continue beta katherine no AC Consultation Date/Type/Reason Admit Date/Time Oct 18, 2018 at 07:52 Initial Consult Date 10/21/18 Type of Consult Cardiology Requesting Provider: MAGDI EDWARDS MD Date/Time of Note DATE: 10/23/18 TIME: 13:48 Detailed Summary Respiratory: no complaints Cardiovascular: no complaints Gastrointestinal: no complaints Musculoskeletal: no complaints Skin: no complaints Neurologic: no complaints Exam/Review of Systems Vital Signs Vitals Vital Signs Date Temp Pulse Resp B/P (MAP) Pulse Ox O2 O2 Flow FiO2 Time Delivery Rate 10/23/18 71 12:00 10/23/18 98.0 19 123/58 95 11:33 (79) 10/22/18 Room Air 18:00 10/22/18 2 13:00 Intake and Output 10/22/18 10/22/18 10/23/18 1515:00 23:00 07:00 IntakeIntake Total 945 ml 1921 ml 730 ml OutputOutput Total 700 ml 275 ml 1900 ml BalanceBalance 245 ml 1646 ml -1170 ml Exam Constitutional: frail Head: normocephalic, atraumatic Neck: jvd Respiratory: clear to auscultation Cardiovascular: regular rate and rhythm Musculoskeletal: nl extremities to inspection Extremities: normal pulses Labs Result Diagram: 10/23/18 0554 10/23/18 0555 Results 24hrs Laboratory Tests Test 10/22/18 17:23 10/22/18 18:12 10/22/18 20:29 10/23/18 00:12 Bedside Glucose 128 123 Hemoglobin 9.1 L 8.8 L Hematocrit 27.3 L 26.4 L Test 10/23/18 05:54 10/23/18 05:55 10/23/18 05:59 10/23/18 07:58 White Blood Count 9.3 Red Blood Count 2.90 L Hemoglobin 9.1 L Hematocrit 27.1 L Mean Corpuscular 93.4 Volume Mean Corpuscular 31.4 Hemoglobin Mean Corpuscular 33.6 Hemoglobin Concent Red Cell 13.8 Distribution Width Platelet Count 153 Mean Platelet 10.6 H Volume Immature 1.700 H Granulocytes % Neutrophils % 77.5 H Lymphocytes % 11.1 L Monocytes % 3.9 Eosinophils % 5.4 Basophils % 0.4 Nucleated Red 1.4 H Blood Cells % Immature 0.160 H Granulocytes # Neutrophils # 7.2 Lymphocytes # 1.0 Monocytes # 0.4 Eosinophils # 0.5 Basophils # 0.0 Nucleated Red 0.1 H Blood Cells # Sodium Level 137 Potassium Level 3.9 Chloride Level 108 # Carbon Dioxide 23 Level Anion Gap 6 Blood Urea 10 # Nitrogen Creatinine 0.71 Est Glomerular Filtrat Rate mL/min Glucose Level 117 Calcium Level 7.8 L Lab Scanned Report REFERENCE LAB Bedside Glucose 120 Test 10/23/18 11:54 Bedside Glucose 158 Medications Medications Current Medications Ondansetron HCl (Zofran Inj) 4 mg Q4H PRN IV NAUSEA AND/OR VOMITING Last administered on 10/19/18at 21:53; Admin Dose 4 MG; Start 10/18/18 at 08:30 Hydralazine HCl (Apresoline) 20 mg Q6H PRN IV sbp>160,dbp>95 Last administered on 10/23/18at 06:37; Admin Dose 20 MG; Start 10/18/18 at 08:30 Insulin Aspart (Novolog Insulin Pen) NOVOLOG *MILD* ALGORITHM WITH MEALS BEDTIME SC Last administered on 10/23/18at 12:09; Admin Dose 1 UNIT; Start at 11:30 Atorvastatin Calcium (Lipitor) 40 mg HS PO Last administered on 10/22/18at 20:29; Admin Dose 40 MG; Start 10/18/18 at 21:00 Morphine Sulfate (morphine) 2 mg Q4H PRN IV SEVERE PAIN LEVEL 7-10; Start 10/18/18 at 21:00 Ceftriaxone Sodium 50 ml @ 100 mls/hr Q24H IVPB Last administered on 10/22/18at 23:25; Admin Dose 100 MLS/HR; Start 10/18/18 at 22:00; Stop 10/24/18 at 23:45 Miscellaneous Information 1 ea NOTE XX ; Start 10/19/18 at 08:30 Glucose (Glutose) 15 gm Q15M PRN PO DECREASED GLUCOSE; Start 10/19/18 at 08:30 Glucose (Glutose) 22.5 gm Q15M PRN PO DECREASED GLUCOSE; Start 10/19/18 at 08:30 Dextrose (D50w Syringe) 25 ml Q15M PRN IV DECREASED GLUCOSE; Start 10/19/18 at 08:30 Dextrose (D50w Syringe) 50 ml Q15M PRN IV DECREASED GLUCOSE; Start 10/19/18 at 08:30 Glucagon (Glucagen) 1 mg Q15M PRN IM DECREASED GLUCOSE; Start 10/19/18 at 08:30 Glucose (Glutose) 15 gm Q15M PRN BUCCAL DECREASED GLUCOSE; Start 10/19/18 at 08:30 Amiodarone HCl (Cordarone) 200 mg BID PO Last administered on 10/23/18 09:21; Admin Dose 200 MG; Start 10/19/18 at 12:30 Carvedilol (Coreg) 6.25 mg BID PO Last administered on 10/23/18 09:21; Admin Dose 6.25 MG; Start 10/20/18 at 21:00 Levetiracetam 100 ml @ 400 mls/hr Q12 IVPB Last administered on 10/23/18 09:29; Admin Dose 400 MLS/HR; Start 10/20/18 at 21:00 Brimonidine Tartrate (Alphagan P 0.15%) 1 drop BID BOTH EYES Last administered on 10/23/18 09:24; Admin Dose 1 DROP; Start 10/20/18 at 21:00 Eye Lubricant (Artificial Tears Oph) 1 drop QID BOTH EYES Last administered on 10/23/18 13:29; Admin Dose 1 DROP; Start 10/20/18 at 18:30 Fluticasone Propionate (Flonase 0.05% Nasal) 1 spray BID NASAL Last administered on 10/23/18 09:24; Admin Dose 1 SPRAY; Start 10/21/18 at 09:00 Sodium Chloride 1,000 ml @ 80 mls/hr [id number] IV Last administered on 10/23/18 06:27; Admin Dose 80 MLS/HR; Start 10/21/18 at 09:00 Sucralfate (Carafate Susp) 1 gm QID PO Last administered on 10/23/18 13:33; Admin Dose 1 GM; Start 10/21/18 at 19:00 IV Flush (NS 10 ml) 10 ml PRN PRN IV IV PROTOCOL; Start 10/22/18 at 12:00 Pantoprazole (Protonix Iv) 40 mg BID@06,18 IV Last administered on 10/23/18at 05:58; Admin Dose 40 MG; Start 10/23/18 at 06:00 ZECHARIAH NEFF MD Oct 23, 2018 13:49
--- NOTE | 2018-10-23 14:17 | PN ---
Date/Time of Note Date/Time of Note DATE: 10/23/18 TIME: 14:08 Assessment/Plan VTE Prophylaxis Risk score (from Ns)>0 risk: 5 SCD applied (from Ns): Yes Pharmacological prophylaxis: NA/contraindicated Pharm contraindication: bleeding Lines/Catheters [facility] Central line still needed: Yes Urinary Cath still in place: Yes Reason Cath still needed: other (indicate) Assessment/Plan Assessment/Plan Assessment: Upper GI bleeding/hematemesis EGD 10/18/18 Impression: Probable duodenal ulcer with large amounts of clots. No evidence of active bleeding. Limited examination. Clots were not removed as there appears to be no active bleeding. EGD 10/21/18 Impression: Duodenal ulcer with stigmata of recent bleeding. No clear visible vessel. Random biopsies obtained to rule out H. pylori infection body and antrum the stomach. Otherwise normal EGD. Biopsies are negative Anemia likely secondary to above. Extensive use of nonsteroidal inflammatory agents. Unclear use of Plavix. Listed but patient denies taking it Status post right hemispheric CVA with left hemiparesis. History of hypertension. History of diabetes mellitus. History of dyslipidemia. Moderate obesity. Plan: Continue Protonix twice daily Carafate 1 g suspension 4 times daily. Advance diet as tolerated. Patient seen in collaboration with Dr. Centeno/Tao Subjective: Course reviewed with nursing staff Patient interviewed and examined All labs, imaging and other results reviewed Pt has been transferred out of the ICU. She denies abdominal pain, nausea or vomiting. Tolerating diet well. Results of gastric biopsies reviewed with the patient is negative. No evidence of GI bleeding. Hemoglobin is stable. We will continue treatment of peptic ulcer with PPI and Carafate. Continue observation. PHYSICAL EXAMINATION: GENERAL: Well developed, well nourished, alert & oriented SKIN: No lesions HEAD: Normocephalic, atraumatic, no tenderness. EYES: Pupils equal reactive to light and accommodation, full extraocular move ments, sclera clear, non-icteric, no discharge. EARS/NOSE AND THROAT: Ears normal, nose normal, oropharynx normal, oral membranes well hydrated without lesions. NECK: Supple, no masses, NGT in place CHEST: Inspection within normal limits. CARDIOVASCULAR: Heart: Regular rate and rhythm. RESPIRATORY: Lungs clear to auscultation GASTROINTESTINAL AND LIVER: Abdomen: Soft, diffuse tenderness, mildly distended, no hernias, no masses, no organomegaly, no ascites, no guarding, no rebound tenderness, normoactive bowel sounds. Rectal: Deferred. EXTREMITIES: No cyanosis, clubbing or edema. Result Diagram: 10/23/18 0554 10/23/18 0555 Results 24hrs Laboratory Tests Test 10/22/18 17:23 10/22/18 18:12 10/22/18 20:29 10/23/18 00:12 Bedside Glucose 128 123 Hemoglobin 9.1 L 8.8 L Hematocrit 27.3 L 26.4 L Test 10/23/18 05:54 10/23/18 05:55 10/23/18 05:59 10/23/18 07:58 White Blood Count 9.3 Red Blood Count 2.90 L Hemoglobin 9.1 L Hematocrit 27.1 L Mean Corpuscular 93.4 Volume Mean Corpuscular 31.4 Hemoglobin Mean Corpuscular 33.6 Hemoglobin Concent Red Cell 13.8 Distribution Width Platelet Count 153 Mean Platelet 10.6 H Volume Immature 1.700 H Granulocytes % Neutrophils % 77.5 H Lymphocytes % 11.1 L Monocytes % 3.9 Eosinophils % 5.4 Basophils % 0.4 Nucleated Red 1.4 H Blood Cells % Immature 0.160 H Granulocytes # Neutrophils # 7.2 Lymphocytes # 1.0 Monocytes # 0.4 Eosinophils # 0.5 Basophils # 0.0 Nucleated Red 0.1 H Blood Cells # Sodium Level 137 Potassium Level 3.9 Chloride Level 108 # Carbon Dioxide 23 Level Anion Gap 6 Blood Urea 10 # Nitrogen Creatinine 0.71 Est Glomerular Filtrat Rate mL/min Glucose Level 117 Calcium Level 7.8 L Lab Scanned Report REFERENCE LAB Bedside Glucose 120 Test 10/23/18 11:54 Bedside Glucose 158 CC: CONCHA CARMICHAEL ; Exam/Review of Systems Exam Vitals Vital Signs Date Temp Pulse Resp B/P (MAP) Pulse Ox O2 O2 Flow FiO2 Time Delivery Rate 10/23/18 71 12:00 10/23/18 98.0 19 123/58 95 11:33 (79) 10/22/18 Room Air 18:00 10/22/18 2 13:00 Intake and Output 10/22/18 10/22/18 10/23/18 1515:00 23:00 07:00 IntakeIntake Total 945 ml 1921 ml 730 ml OutputOutput Total 700 ml 275 ml 1900 ml BalanceBalance 245 ml 1646 ml -1170 ml Results Results 24hrs Laboratory Tests Test 10/22/18 17:23 10/22/18 18:12 10/22/18 20:29 10/23/18 00:12 Bedside Glucose 128 123 Hemoglobin 9.1 L 8.8 L Hematocrit 27.3 L 26.4 L Test 10/23/18 05:54 10/23/18 05:55 10/23/18 05:59 10/23/18 07:58 White Blood Count 9.3 Red Blood Count 2.90 L Hemoglobin 9.1 L Hematocrit 27.1 L Mean Corpuscular 93.4 Volume Mean Corpuscular 31.4 Hemoglobin Mean Corpuscular 33.6 Hemoglobin Concent Red Cell 13.8 Distribution Width Platelet Count 153 Mean Platelet 10.6 H Volume Immature 1.700 H Granulocytes % Neutrophils % 77.5 H Lymphocytes % 11.1 L Monocytes % 3.9 Eosinophils % 5.4 Basophils % 0.4 Nucleated Red 1.4 H Blood Cells % Immature 0.160 H Granulocytes # Neutrophils # 7.2 Lymphocytes # 1.0 Monocytes # 0.4 Eosinophils # 0.5 Basophils # 0.0 Nucleated Red 0.1 H Blood Cells # Sodium Level 137 Potassium Level 3.9 Chloride Level 108 # Carbon Dioxide 23 Level Anion Gap 6 Blood Urea 10 # Nitrogen Creatinine 0.71 Est Glomerular Filtrat Rate mL/min Glucose Level 117 Calcium Level 7.8 L Lab Scanned Report REFERENCE LAB Bedside Glucose 120 Test 10/23/18 11:54 Bedside Glucose 158 Medications Medication Current Medications Ondansetron HCl (Zofran Inj) 4 mg Q4H PRN IV NAUSEA AND/OR VOMITING Last administered on 10/19/18at 21:53; Admin Dose 4 MG; Start 10/18/18 at 08:30 Hydralazine HCl (Apresoline) 20 mg Q6H PRN IV sbp>160,dbp>95 Last administered on 10/23/18at 06:37; Admin Dose 20 MG; Start 10/18/18 at 08:30 Insulin Aspart (Novolog Insulin Pen) NOVOLOG *MILD* ALGORITHM WITH MEALS BEDTIME SC Last administered on 10/23/18at 12:09; Admin Dose 1 UNIT; Start 10/18/18 at 11:30 Atorvastatin Calcium (Lipitor) 40 mg HS PO Last administered on 10/22/18 20:29; Admin Dose 40 MG; Start 10/18/18 at 21:00 Morphine Sulfate (morphine) 2 mg Q4H PRN IV SEVERE PAIN LEVEL 7-10; Start 10/18/18 at 21:00 Ceftriaxone Sodium 50 ml @ 100 mls/hr Q24H IVPB Last administered on 10/22/18at 23:25; Admin Dose 100 MLS/HR; Start 10/18/18 at 22:00; Stop 10/24/18 at 23:45 Miscellaneous Information 1 ea NOTE XX ; Start 10/19/18 at 08:30 Glucose (Glutose) 15 gm Q15M PRN PO DECREASED GLUCOSE; Start 10/19/18 at 08:30 Glucose (Glutose) 22.5 gm Q15M PRN PO DECREASED GLUCOSE; Start 10/19/18 at 08:30 Dextrose (D50w Syringe) 25 ml Q15M PRN IV DECREASED GLUCOSE; Start 10/19/18 at 08:30 Dextrose (D50w Syringe) 50 ml Q15M PRN IV DECREASED GLUCOSE; Start 10/19/18 at 08:30 Glucagon (Glucagen) 1 mg Q15M PRN IM DECREASED GLUCOSE; Start 10/19/18 at 08:30 Glucose (Glutose) 15 gm Q15M PRN BUCCAL DECREASED GLUCOSE; Start 10/19/18 at 08:30 Amiodarone HCl (Cordarone) 200 mg BID PO Last administered on 10/23/18 09:21; Admin Dose 200 MG; Start 10/19/18 at 12:30 Carvedilol (Coreg) 6.25 mg BID PO Last administered on 10/23/18 09:21; Admin Dose 6.25 MG; Start 10/20/18 at 21:00 Levetiracetam 100 ml @ 400 mls/hr Q12 IVPB Last administered on 10/23/18 09:29; Admin Dose 400 MLS/HR; Start 10/20/18 at 21:00 Brimonidine Tartrate (Alphagan P 0.15%) 1 drop BID BOTH EYES Last administered on 10/23/18 09:24; Admin Dose 1 DROP; Start 10/20/18 at 21:00 Eye Lubricant (Artificial Tears Oph) 1 drop QID BOTH EYES Last administered on 10/23/18 13:29; Admin Dose 1 DROP; Start 10/20/18 at 18:30 Fluticasone Propionate (Flonase 0.05% Nasal) 1 spray BID NASAL Last administered on 10/23/18 09:24; Admin Dose 1 SPRAY; Start 10/21/18 at 09:00 Sodium Chloride 1,000 ml @ 80 mls/hr [id number] IV Last administered on 10/23/18 06:27; Admin Dose 80 MLS/HR; Start 10/21/18 at 09:00 Sucralfate (Carafate Susp) 1 gm QID PO Last administered on 10/23/18 13:33; Admin Dose 1 GM; Start 10/21/18 at 19:00 IV Flush (NS 10 ml) 10 ml PRN PRN IV IV PROTOCOL; Start 10/22/18 at 12:00 Pantoprazole (Protonix Iv) 40 mg BID@06,18 IV Last administered on 10/23/18at 05:58; Admin Dose 40 MG; Start 10/23/18 at 06:00 TIANNA BEVERLY TEXTILE DYER Oct 23, 2018 14:16
[2018-10-23] MEDS: PANTOPRAZOLE (EC) 40 MG TAB PO SCH (16:39)
[2018-10-23] MEDS: ATORVASTATIN 40 MG TAB PO SCH (20:28)
[2018-10-23] MEDS: CEFTRIAXONE 1 GM/50 ML (PMX) 50 ML IVPB SCH (22:13)
[2018-10-24] VITALS (12 sets, daily range): BP systolic 133–184; BP diastolic 62–74; PULSE 62–89; RESP 18–19
[2018-10-24] MEDS: INSULIN ASPART [NOVOLOG] 3 ML PEN SC SCH ×4 (09:48→20:37)
[2018-10-24] MEDS: FLUTICASONE 0.05% 16 GM NAS SPRAY NASAL SCH ×2 (09:49→20:34)
[2018-10-24] MEDS: BRIMONIDINE 0.15% 5 ML OPH BOTH EYES SCH ×2 (09:49→20:35)
[2018-10-24] MEDS: ARTIFICIAL TEARS 15 ML OPH BOTH EYES SCH ×4 (09:49→20:35)
[2018-10-24] MEDS: LEVETIRACETAM 500 MG (PMX) 100 ML IVPB SCH ×2 (09:51→21:19)
[2018-10-24] MEDS: PANTOPRAZOLE (EC) 40 MG TAB PO SCH ×2 (10:47→16:49)
[2018-10-24] MEDS: AMIODARONE 200 MG TAB PO SCH ×2 (10:47→20:33)
[2018-10-24] MEDS: SUCRALFATE (100 MG/ML) 10ML CUP PO SCH ×4 (10:48→20:33)
--- NOTE | 2018-10-24 11:26 | CONS ---
Assessment/Plan Assessment/Plan Assessment/Plan (Daily) 1. acute hyperkalemia- resolved 2. acute Prerenal azotemia from Upper GI bleeding 3. acute Upper GI bleeding 4. History of CVA 5. Left vertebral artery stenosis 6. H/o Hypertension 7. H/o Diabetes 8. H/o History of cardiomyopathy, current echocardiogram with ejection fraction 55% 9. H/o Paroxysmal atrial fibrillation 10. Hypernatremia Plan: s/p GI work up and EGD for upper GI bleeding, Hb 8.7 today Na improved to normal today , continue IVF 1/2 NS at 50 cc/hr will follow up patient seen in collaboration with Dr Leslie duque. dw staff Consultation Date/Type/Reason Admit Date/Time Oct 18, 2018 at 7:52 am Initial Consult Date 10/21/18 Requesting Provider: MAGDI EDWARDS MD Date/Time of Note DATE: 10/24/18 TIME: 11:23 24 HR Interval Summary Free Text/Dictation NAD VSS seems comfortable family at bed side- all Qs answered no new evens reported last night dw staff Constitutional: requiring O2 Detailed Summary Eyes: no complaints ENT: no complaints Respiratory: no complaints Cardiovascular: no complaints Gastrointestinal: no complaints Genitourinary: no complaints Musculoskeletal: other (generelized weakness) Neurologic: no complaints Exam/Review of Systems Exam Vitals Vital Signs Date Temp Pulse Resp B/P (MAP) Pulse Ox O2 O2 Flow FiO2 Time Delivery Rate 10/24/18 98.2 89 19 140/63 94 10:59 (88) 10/22/18 Room Air 18:00 10/22/18 2 13:00 Intake and Output 10/23/18 10/23/18 10/24/18 1515:00 23:00 07:00 IntakeIntake Total 100 ml 790 ml 650 ml OutputOutput Total 2100 ml 950 ml BalanceBalance 100 ml -1310 ml -300 ml Constitutional: alert, well developed Psych: nl mood/affect Eyes: EOMI, nl lids, nl sclera Neck: supple Respiratory: clear to auscultation Cardiovascular: nl pulses, other (s1s2) Gastrointestinal: soft, non-tender Musculoskeletal: muscle weakness Extremities: normal pulses Neurological: other (alert/repsonsive) Results Result Diagram: 10/24/18 0532 10/24/18 0521 Results 24hrs Laboratory Tests Test 10/23/18 11:54 10/23/18 17:16 10/23/18 20:27 10/24/18 05:21 Bedside Glucose 158 164 179 Sodium Level 138 Potassium Level 3.6 Chloride Level 107 Carbon Dioxide Level 25 Anion Gap 6 Blood Urea Nitrogen 7 Creatinine 0.73 Est Glomerular Filtrat Rate mL/min Glucose Level 139 Calcium Level 7.6 L Test 10/24/18 05:32 10/24/18 09:47 White Blood Count 6.7 # Red Blood Count 2.75 L Hemoglobin 8.7 L Hematocrit 25.5 L Mean Corpuscular 92.7 Volume Mean Corpuscular 31.6 Hemoglobin Mean Corpuscular 34.1 Hemoglobin Concent Red Cell 14.6 H Distribution Width Platelet Count 168 Mean Platelet Volume 11.0 H Immature 1.500 H Granulocytes % Neutrophils % 74.1 Lymphocytes % 15.1 Monocytes % 5.4 Eosinophils % 3.6 Basophils % 0.3 Nucleated Red Blood 0.3 H Cells % Immature 0.100 H Granulocytes # Neutrophils # 5.0 Lymphocytes # 1.0 Monocytes # 0.4 Eosinophils # 0.2 Basophils # 0.0 Nucleated Red Blood 0.0 Cells # Bedside Glucose 135 Medications Medication Current Medications Ondansetron HCl (Zofran Inj) 4 mg Q4H PRN IV NAUSEA AND/OR VOMITING Last administered on 10/19/18at 21:53; Admin Dose 4 MG; Start 10/18/18 at 08:30 Hydralazine HCl (Apresoline) 20 mg Q6H PRN IV sbp>160,dbp>95 Last administered on 10/23/18at 06:37; Admin Dose 20 MG; Start 10/18/18 at 08:30 Insulin Aspart (Novolog Insulin Pen) NOVOLOG *MILD* ALGORITHM WITH MEALS BEDTIME SC Last administered on 10/23/18at 20:35; Admin Dose 1 UNIT; Start 10/18/18 at 11:30 Atorvastatin Calcium (Lipitor) 40 mg HS PO Last administered on 10/23/18at 20:28 ; Admin Dose 40 MG; Start 10/18/18 at 21:00 Morphine Sulfate (morphine) 2 mg Q4H PRN IV SEVERE PAIN LEVEL 7-10; Start 10/18/18 at 21:00 Ceftriaxone Sodium 50 ml @ 100 mls/hr Q24H IVPB Last administered on 10/23/18 22:13; Admin Dose 100 MLS/HR; Start 10/18/18 at 22:00; Stop 10/24/18 at 23:45 Miscellaneous Information 1 ea NOTE XX ; Start 10/19/18 at 08:30 Glucose (Glutose) 15 gm Q15M PRN PO DECREASED GLUCOSE; Start 10/19/18 at 08:30 Glucose (Glutose) 22.5 gm Q15M PRN PO DECREASED GLUCOSE; Start 10/19/18 at 08:30 Dextrose (D50w Syringe) 25 ml Q15M PRN IV DECREASED GLUCOSE; Start 10/19/18 at 08:30 Dextrose (D50w Syringe) 50 ml Q15M PRN IV DECREASED GLUCOSE; Start 10/19/18 at 08:30 Glucagon (Glucagen) 1 mg Q15M PRN IM DECREASED GLUCOSE; Start 10/19/18 at 08:30 Glucose (Glutose) 15 gm Q15M PRN BUCCAL DECREASED GLUCOSE; Start 10/19/18 at 08:30 Amiodarone HCl (Cordarone) 200 mg BID PO Last administered on 10/24/18 10:47; Admin Dose 200 MG; Start 10/19/18 at 12:30 Carvedilol (Coreg) 6.25 mg BID PO Last administered on 10/24/18 10:47; Admin Dose 6.25 MG; Start 10/20/18 at 21:00 Levetiracetam 100 ml @ 400 mls/hr Q12 IVPB Last administered on 10/24/18 09:51; Admin Dose 400 MLS/HR; Start 10/20/18 at 21:00 Brimonidine Tartrate (Alphagan P 0.15%) 1 drop BID BOTH EYES Last administered on 10/24/18 09:49; Admin Dose 1 DROP; Start 10/20/18 at 21:00 Eye Lubricant (Artificial Tears Oph) 1 drop QID BOTH EYES Last administered on 10/24/18 09:49; Admin Dose 1 DROP; Start 10/20/18 at 18:30 Fluticasone Propionate (Flonase 0.05% Nasal) 1 spray BID NASAL Last administered on 10/24/18 09:49; Admin Dose 1 SPRAY; Start 10/21/18 at 09:00 Sodium Chloride 1,000 ml @ 50 mls/hr Q20H IV Last administered on 10/23/18 22:40; Admin Dose 50 MLS/HR; Start 10/21/18 at 09:00 Sucralfate (Carafate Susp) 1 gm QID PO Last administered on 10/24/18at 10:48; Admin Dose 1 GM; Start 10/21/18 at 19:00 IV Flush (NS 10 ml) 10 ml PRN PRN IV IV PROTOCOL; Start 10/22/18 at 12:00 Pantoprazole (Protonix Tab) 40 mg BID@0800,1600 PO Last administered on 10/24/18at 10:47; Admin Dose 40 MG; Start 10/23/18 at 16:00 DANO MILLER Oct 24, 2018 11:26
--- NOTE | 2018-10-24 12:13 | PN ---
Date/Time of Note Date/Time of Note DATE: 10/24/18 TIME: 12:12 Assessment/Plan VTE Prophylaxis Risk score (from [facility])>0 risk: 7 SCD applied (from [facility]): Yes Pharmacological prophylaxis: NA/contraindicated Pharm contraindication: bleeding Lines/Catheters IV [facility] Type (from [facility]): PICC Line Central line still needed: Yes Urinary Cath still in place: Yes Reason Cath still needed: skin wounds contaminated by urine Assessment/Plan Hospital Course 1. Upper gastrointestinal bleed due to duodenal ulcer. Continue to monitor H and H, also will be continued on IV Protonix. 2. Argbr-pc-rmyegmo kidney disease. The patient's BUN and creatinine have improved. The patient remains on IV fluid. 3. Cardiomyopathy. Continue carvedilol. 4. Recent urinary tract infection. Continue ceftriaxone. Urine culture was sent again and it is still positive for Escherichia coli sensitive to Rocephin. 5. Hypertension. Blood pressure well controlled with carvedilol. 6. Paroxysmal atrial fibrillation. The patient is currently in sinus rhythm. Continue amiodarone. 7. Seizure disorder. Continue Keppra. 8. History of cerebrovascular accident. The patient cannot be on antiplatelet agent at this time due to massive upper gastrointestinal bleed. We will wait for GI clearance. Result Diagram: 10/24/18 0532 10/24/18 0521 Results 24hrs Laboratory Tests Test 10/23/18 17:16 10/23/18 20:27 10/24/18 05:21 10/24/18 05:32 Bedside Glucose 164 179 Sodium Level 138 Potassium Level 3.6 Chloride Level 107 Carbon Dioxide Level 25 Anion Gap 6 Blood Urea Nitrogen 7 Creatinine 0.73 Est Glomerular Filtrat Rate mL/min Glucose Level 139 Calcium Level 7.6 L White Blood Count 6.7 # Red Blood Count 2.75 L Hemoglobin 8.7 L Hematocrit 25.5 L Mean Corpuscular 92.7 Volume Mean Corpuscular 31.6 Hemoglobin Mean Corpuscular 34.1 Hemoglobin Concent Red Cell 14.6 H Distribution Width Platelet Count 168 Mean Platelet Volume 11.0 H Immature 1.500 H Granulocytes % Neutrophils % 74.1 Lymphocytes % 15.1 Monocytes % 5.4 Eosinophils % 3.6 Basophils % 0.3 Nucleated Red Blood 0.3 H Cells % Immature 0.100 H Granulocytes # Neutrophils # 5.0 Lymphocytes # 1.0 Monocytes # 0.4 Eosinophils # 0.2 Basophils # 0.0 Nucleated Red Blood 0.0 Cells # Test 10/24/18 09:47 Bedside Glucose 135 Subjective 24 Hr Interval Summary Free Text/Dictation Patient has no complaints Exam/Review of Systems Exam Vitals Vital Signs Date Temp Pulse Resp B/P (MAP) Pulse Ox O2 O2 Flow FiO2 Time Delivery Rate 10/24/18 98.2 89 19 140/63 94 10:59 (88) 10/22/18 Room Air 18:00 10/22/18 2 13:00 Intake and Output 10/23/18 10/23/18 10/24/18 1515:00 23:00 07:00 IntakeIntake Total 100 ml 790 ml 650 ml OutputOutput Total 2100 ml 950 ml BalanceBalance 100 ml -1310 ml -300 ml Constitutional: well developed Head: normocephalic, atraumatic Neck: supple Respiratory: clear to auscultation Cardiovascular: regular rate and rhythm Gastrointestinal: soft, non-tender Extremities: normal pulses Results Results 24hrs Laboratory Tests Test 10/23/18 17:16 10/23/18 20:27 10/24/18 05:21 10/24/18 05:32 Bedside Glucose 164 179 Sodium Level 138 Potassium Level 3.6 Chloride Level 107 Carbon Dioxide Level 25 Anion Gap 6 Blood Urea Nitrogen 7 Creatinine 0.73 Est Glomerular Filtrat Rate mL/min Glucose Level 139 Calcium Level 7.6 L White Blood Count 6.7 # Red Blood Count 2.75 L Hemoglobin 8.7 L Hematocrit 25.5 L Mean Corpuscular 92.7 Volume Mean Corpuscular 31.6 Hemoglobin Mean Corpuscular 34.1 Hemoglobin Concent Red Cell 14.6 H Distribution Width Platelet Count 168 Mean Platelet Volume 11.0 H Immature 1.500 H Granulocytes % Neutrophils % 74.1 Lymphocytes % 15.1 Monocytes % 5.4 Eosinophils % 3.6 Basophils % 0.3 Nucleated Red Blood 0.3 H Cells % Immature 0.100 H Granulocytes # Neutrophils # 5.0 Lymphocytes # 1.0 Monocytes # 0.4 Eosinophils # 0.2 Basophils # 0.0 Nucleated Red Blood 0.0 Cells # Test 10/24/18 09:47 Bedside Glucose 135 Medications Medication Current Medications Ondansetron HCl (Zofran Inj) 4 mg Q4H PRN IV NAUSEA AND/OR VOMITING Last administered on 10/19/18 21:53; Admin Dose 4 MG; Start 10/18/18 at 08:30 Hydralazine HCl (Apresoline) 20 mg Q6H PRN IV sbp>160,dbp>95 Last administered on 10/23/18 06:37; Admin Dose 20 MG; Start 10/18/18 at 08:30 Insulin Aspart (Novolog Insulin Pen) NOVOLOG *MILD* ALGORITHM WITH MEALS BEDTIME SC Last administered on 10/23/18 20:35; Admin Dose 1 UNIT; Start 10/18/18 at 11:30 Atorvastatin Calcium (Lipitor) 40 mg HS PO Last administered on 10/23/18 20:28; Admin Dose 40 MG; Start 10/18/18 at 21:00 Morphine Sulfate (morphine) 2 mg Q4H PRN IV SEVERE PAIN LEVEL 7-10; Start 10/18/18 at 21:00 Ceftriaxone Sodium 50 ml @ 100 mls/hr Q24H IVPB Last administered on 10/23/18 22:13; Admin Dose 100 MLS/HR; Start 10/18/18 at 22:00; Stop 10/24/18 at 23:45 Miscellaneous Information 1 ea NOTE XX ; Start 10/19/18 at 08:30 Glucose (Glutose) 15 gm Q15M PRN PO DECREASED GLUCOSE; Start 10/19/18 at 08:30 Glucose (Glutose) 22.5 gm Q15M PRN PO DECREASED GLUCOSE; Start 10/19/18 at 08:30 Dextrose (D50w Syringe) 25 ml Q15M PRN IV DECREASED GLUCOSE; Start 10/19/18 at 08:30 Dextrose (D50w Syringe) 50 ml Q15M PRN IV DECREASED GLUCOSE; Start 10/19/18 at 08:30 Glucagon (Glucagen) 1 mg Q15M PRN IM DECREASED GLUCOSE; Start 10/19/18 at 08:30 Glucose (Glutose) 15 gm Q15M PRN BUCCAL DECREASED GLUCOSE; Start 10/19/18 at 08:30 Amiodarone HCl (Cordarone) 200 mg BID PO Last administered on 10/24/18 10:47; Admin Dose 200 MG; Start 10/19/18 at 12:30 Carvedilol (Coreg) 6.25 mg BID PO Last administered on 10/24/18 10:47; Admin Dose 6.25 MG; Start 10/20/18 at 21:00 Levetiracetam 100 ml @ 400 mls/hr Q12 IVPB Last administered on 10/24/18 09:51; Admin Dose 400 MLS/HR; Start 10/20/18 at 21:00 Brimonidine Tartrate (Alphagan P 0.15%) 1 drop BID BOTH EYES Last administered on 10/24/18 09:49; Admin Dose 1 DROP; Start 10/20/18 at 21:00 Eye Lubricant (Artificial Tears Oph) 1 drop QID BOTH EYES Last administered on 10/24/18 09:49; Admin Dose 1 DROP; Start 10/20/18 at 18:30 Fluticasone Propionate (Flonase 0.05% Nasal) 1 spray BID NASAL Last administered on 10/24/18 09:49; Admin Dose 1 SPRAY; Start 10/21/18 at 09:00 Sodium Chloride 1,000 ml @ 50 mls/hr Q20H IV Last administered on 10/23/18 22:40; Admin Dose 50 MLS/HR; Start 10/21/18 at 09:00 Sucralfate (Carafate Susp) 1 gm QID PO Last administered on 10/24/18 10:48; Admin Dose 1 GM; Start 10/21/18 at 19:00 IV Flush (NS 10 ml) 10 ml PRN PRN IV IV PROTOCOL; Start 10/22/18 at 12:00 Pantoprazole (Protonix Tab) 40 mg BID@0800,1600 PO Last administered on 10/24/18 10:47; Admin Dose 40 MG; Start 10/23/18 at 16:00 YOKO SCOTT Oct 24, 2018 12:13
--- NOTE | 2018-10-24 13:33 | PN ---
DATE: 10/23/2018 SUBJECTIVE: Follow up on acute duodenal ulcer bleed, hypertension, CVA, cardiomyopathy, paroxysmal a trial fibrillation. The patient is breathing comfortably at rest, did not have any further hematemes is or melena. Denies any abdominal pain. No reported chest pain, no reported fever or chills. No r eported dysuria or hematuria. No report of any new focal deficit. The patient had stable left-sided hemiparesis. PHYSICAL EXAM: GENERAL: The patient is awake, alert. VITAL SIGNS: Temperature 98, blood pressure 123/58, pulse 72, respirations 19, O2 saturation 95% on room air. HEENT: No eye discharge or redness. Conjunctivae are normal. Oropharynx clear. NECK: Supple, no mass, no thyromegaly. CHEST: Fairly clear. No use of accessory muscles. CARDIOVASCULAR: S1, S2 normal, no murmur. The patient is in and out of atrial fibrillation. No mur mur. ABDOMEN: Soft, nondistended, nontender. Bowel sounds plus. EXTREMITIES: No leg edema. NEUROLOGIC: The patient is awake, alert, fairly oriented. Affect is flat. The patient has chronic left-sided hemiplegia. LABORATORY DATA: Done on 10/23/2018, revealed WBC 9.2, hemoglobin 9.1, platelet 153. Sodium 137, po tassium 3.9, BUN 10, creatinine 0.7, glucose 117, calcium 7.8. IMPRESSION: 1. Upper gastrointestinal bleed due to bleeding duodenal ulcer. Continue IV Protonix 40 b.i.d. and Carafate 1 gram q.i.d. 2. Paroxysmal atrial fibrillation. The patient is currently in sinus rhythm. Continue Coreg. No a nticoagulant or antiplatelet due to active gastrointestinal bleed. 3. Seizure disorder. Continue Keppra. 4. Hypertension. Blood pressure reasonably controlled with Coreg. 5. Diabetes. Blood sugar excellent control. Continue current dose of sliding scale insulin. 6. UTI. The patient will have last dose of Rocephin on 10/27/2018. Dictated By: MAGDI BERGERON/GRACE Conf#: [id number] DID#: [id number]
--- NOTE | 2018-10-24 15:32 | PN ---
Date/Time of Note Date/Time of Note DATE: 10/24/18 TIME: 15:30 Assessment/Plan VTE Prophylaxis Risk score (from Ns)>0 risk: 7 SCD applied (from Ns): Yes Pharmacological prophylaxis: NA/contraindicated Pharm contraindication: bleeding Lines/Catheters IV [facility]ter Type (from [facility]): PICC Line Central line still needed: Yes Urinary Cath still in place: Yes Reason Cath still needed: other (indicate) Assessment/Plan Assessment/Plan Assessment: Upper GI bleeding/hematemesis EGD 10/18/18 Impression: Probable duodenal ulcer with large amounts of clots. No evidence of active bleeding. Limited examination. Clots were not removed as there appears to be no active bleeding. EGD 10/21/18 Impression: Duodenal ulcer with stigmata of recent bleeding. No clear visible vessel. Random biopsies obtained to rule out H. pylori infection body and antrum the stomach. Otherwise normal EGD. Biopsies are negative Anemia likely secondary to above. Extensive use of nonsteroidal inflammatory agents. Unclear use of Plavix. Listed but patient denies taking it Status post right hemispheric CVA with left hemiparesis. History of hypertension. History of diabetes mellitus. History of dyslipidemia. Moderate obesity. Plan: Continue Protonix twice daily Carafate 1 g suspension 4 times daily. Advance diet as tolerated. GI will sign off at this time Patient seen in collaboration with Dr. Centeno/Tao Subjective: Course reviewed with nursing staff Patient interviewed and examined All labs, imaging and other results reviewed Pt reports feeling well. She denies abdominal pain, nausea or vomiting. Patient had dark brown stool but no melena. Tolerating diet well. Results of gastric biopsies reviewed with the patient is negative. No evidence of GI bleeding. Hemoglobin is stable. We will continue treatment of peptic ulcer with PPI and Carafate. With no further recommendations GI will sign off and will be available to reconsult upon request. PHYSICAL EXAMINATION: GENERAL: Well developed, well nourished, alert & oriented SKIN: No lesions HEAD: Normocephalic, atraumatic, no tenderness. EYES: Pupils equal reactive to light and accommodation, full extraocular movements, sclera clear, non-icteric, no discharge. EARS/NOSE AND THROAT: Ears normal, nose normal, oropharynx normal, oral membranes well hydrated without lesions. NECK: Supple, no masses, NGT in place CHEST: Inspection within normal limits. CARDIOVASCULAR: Heart: Regular rate and rhythm. RESPIRATORY: Lungs clear to auscultation GASTROINTESTINAL AND LIVER: Abdomen: Soft, no tenderness, mildly distended, no hernias, no masses, no organomegaly, no ascites, no guarding, no rebound tenderness, normoactive bowel sounds. Rectal: Deferred. EXTREMITIES: No cyanosis, clubbing or edema. Result Diagram: 10/24/18 0532 10/24/18 0521 Results 24hrs Laboratory Tests Test 10/23/18 17:16 10/23/18 20:27 10/24/18 05:21 10/24/18 05:32 Bedside Glucose 164 179 Sodium Level 138 Potassium Level 3.6 Chloride Level 107 Carbon Dioxide Level 25 Anion Gap 6 Blood Urea Nitrogen 7 Creatinine 0.73 Est Glomerular Filtrat Rate mL/min Glucose Level 139 Calcium Level 7.6 L White Blood Count 6.7 # Red Blood Count 2.75 L Hemoglobin 8.7 L Hematocrit 25.5 L Mean Corpuscular 92.7 Volume Mean Corpuscular 31.6 Hemoglobin Mean Corpuscular 34.1 Hemoglobin Concent Red Cell 14.6 H Distribution Width Platelet Count 168 Mean Platelet Volume 11.0 H Immature 1.500 H Granulocytes % Neutrophils % 74.1 Lymphocytes % 15.1 Monocytes % 5.4 Eosinophils % 3.6 Basophils % 0.3 Nucleated Red Blood 0.3 H Cells % Immature 0.100 H Granulocytes # Neutrophils # 5.0 Lymphocytes # 1.0 Monocytes # 0.4 Eosinophils # 0.2 Basophils # 0.0 Nucleated Red Blood 0.0 Cells # Test 10/24/18 09:47 10/24/18 12:11 Bedside Glucose 135 194 CC: DASHAWN CENTENO MD ; Exam/Review of Systems Exam Vitals Vital Signs Date Temp Pulse Resp B/P (MAP) Pulse Ox O2 O2 Flow FiO2 Time Delivery Rate 10/24/18 98.1 70 19 156/70 96 15:08 (98) 10/22/18 Room Air 18:00 10/22/18 2 13:00 Intake and Output 10/23/18 10/23/18 10/24/18 1515:00 23:00 07:00 IntakeIntake Total 100 ml 790 ml 650 ml OutputOutput Total 2100 ml 950 ml BalanceBalance 100 ml -1310 ml -300 ml Results Results 24hrs Laboratory Tests Test 10/23/18 17:16 10/23/18 20:27 10/24/18 05:21 10/24/18 05:32 Bedside Glucose 164 179 Sodium Level 138 Potassium Level 3.6 Chloride Level 107 Carbon Dioxide Level 25 Anion Gap 6 Blood Urea Nitrogen 7 Creatinine 0.73 Est Glomerular Filtrat Rate mL/min Glucose Level 139 Calcium Level 7.6 L White Blood Count 6.7 # Red Blood Count 2.75 L Hemoglobin 8.7 L Hematocrit 25.5 L Mean Corpuscular 92.7 Volume Mean Corpuscular 31.6 Hemoglobin Mean Corpuscular 34.1 Hemoglobin Concent Red Cell 14.6 H Distribution Width Platelet Count 168 Mean Platelet Volume 11.0 H Immature 1.500 H Granulocytes % Neutrophils % 74.1 Lymphocytes % 15.1 Monocytes % 5.4 Eosinophils % 3.6 Basophils % 0.3 Nucleated Red Blood 0.3 H Cells % Immature 0.100 H Granulocytes # Neutrophils # 5.0 Lymphocytes # 1.0 Monocytes # 0.4 Eosinophils # 0.2 Basophils # 0.0 Nucleated Red Blood 0.0 Cells # Test 10/24/18 09:47 10/24/18 12:11 Bedside Glucose 135 194 Medications Medication Current Medications Ondansetron HCl (Zofran Inj) 4 mg Q4H PRN IV NAUSEA AND/OR VOMITING Last administered on 10/19/18at 21:53; Admin Dose 4 MG; Start 10/18/18 at 08:30 Hydralazine HCl (Apresoline) 20 mg Q6H PRN IV sbp>160,dbp>95 Last administered on 10/23/18at 06:37; Admin Dose 20 MG; Start 10/18/18 at 08:30 Insulin Aspart (Novolog Insulin Pen) NOVOLOG *MILD* ALGORITHM WITH MEALS BEDTIME SC Last administered on 10/24/18at 12:19; Admin Dose 2 UNIT; Start 10/18/18 at 11:30 Atorvastatin Calcium (Lipitor) 40 mg HS PO Last administered on 10/23/18at 20:28; Admin Dose 40 MG; Start 10/18/18 at 21:00 Morphine Sulfate (morphine) 2 mg Q4H PRN IV SEVERE PAIN LEVEL 7-10; Start 10/18/18 at 21:00 Ceftriaxone Sodium 50 ml @ 100 mls/hr Q24H IVPB Last administered on 10/23/18at 22:13; Admin Dose 100 MLS/HR; Start 10/18/18 at 22:00; Stop 10/24/18 at 23:45 Miscellaneous Information 1 ea NOTE XX ; Start 10/19/18 at 08:30 Glucose (Glutose) 15 gm Q15M PRN PO DECREASED GLUCOSE; Start 10/19/18 at 08:30 Glucose (Glutose) 22.5 gm Q15M PRN PO DECREASED GLUCOSE; Start 10/19/18 at 08:30 Dextrose (D50w Syringe) 25 ml Q15M PRN IV DECREASED GLUCOSE; Start 10/19/18 at 08:30 Dextrose (D50w Syringe) 50 ml Q15M PRN IV DECREASED GLUCOSE; Start 10/19/18 at 08:30 Glucagon (Glucagen) 1 mg Q15M PRN IM DECREASED GLUCOSE; Start 10/19/18 at 08:30 Glucose (Glutose) 15 gm Q15M PRN BUCCAL DECREASED GLUCOSE; Start 10/19/18 at 08:30 Amiodarone HCl (Cordarone) 200 mg BID PO Last administered on 10/24/18 10:47; Admin Dose 200 MG; Start 10/19/18 at 12:30 Carvedilol (Coreg) 6.25 mg BID PO Last administered on 10/24/18 10:47; Admin Dose 6.25 MG; Start 10/20/18 at 21:00 Levetiracetam 100 ml @ 400 mls/hr Q12 IVPB Last administered on 10/24/18 09:51; Admin Dose 400 MLS/HR; Start 10/20/18 at 21:00 Brimonidine Tartrate (Alphagan P 0.15%) 1 drop BID BOTH EYES Last administered on 10/24/18 09:49; Admin Dose 1 DROP; Start 10/20/18 at 21:00 Eye Lubricant (Artificial Tears Oph) 1 drop QID BOTH EYES Last administered on 10/24/18 12:13; Admin Dose 1 DROP; Start 10/20/18 at 18:30 Fluticasone Propionate (Flonase 0.05% Nasal) 1 spray BID NASAL Last administered on 10/24/18 09:49; Admin Dose 1 SPRAY; Start 10/21/18 at 09:00 Sodium Chloride 1,000 ml @ 50 mls/hr Q20H IV Last administered on 3/22/19at 22:40; Admin Dose 50 MLS/HR; Start 10/21/18 at 09:00 Sucralfate (Carafate Susp) 1 gm QID PO Last administered on 10/24/18at 10:48; Admin Dose 1 GM; Start 10/21/18 at 19:00 IV Flush (NS 10 ml) 10 ml PRN PRN IV IV PROTOCOL; Start 10/22/18 at 12:00 Pantoprazole (Protonix Tab) 40 mg BID@0800,1600 PO Last administered on 10/24/18at 10:47; Admin Dose 40 MG; Start 10/23/18 at 16:00 TIANNA BEVERLY NP Oct 24, 2018 15:32
[2018-10-24] MEDS: SOD CHLORIDE 0.45% 1,000 ML IV SCH (20:22)
[2018-10-24] MEDS: ATORVASTATIN 40 MG TAB PO SCH (20:32)
[2018-10-24] MEDS: hydrALAzine 20 MG INJ IV PRN (20:35)
[2018-10-24] MEDS: CEFTRIAXONE 1 GM/50 ML (PMX) 50 ML IVPB SCH (21:19)
[2018-10-25] VITALS (12 sets, daily range): BP systolic 136–164; BP diastolic 64–71; PULSE 61–77; RESP 18
[2018-10-25] MEDS: SOD CHLORIDE 0.45% 1,000 ML IV SCH (06:28)
[2018-10-25] MEDS: INSULIN ASPART [NOVOLOG] 3 ML PEN SC SCH ×4 (08:00→20:40)
[2018-10-25] MEDS: PANTOPRAZOLE (EC) 40 MG TAB PO SCH ×2 (08:01→17:06)
[2018-10-25] MEDS: SUCRALFATE (100 MG/ML) 10ML CUP PO SCH ×4 (08:01→20:39)
[2018-10-25] MEDS: ARTIFICIAL TEARS 15 ML OPH BOTH EYES SCH ×4 (08:02→20:40)
[2018-10-25] MEDS: BRIMONIDINE 0.15% 5 ML OPH BOTH EYES SCH ×2 (08:02→20:40)
[2018-10-25] MEDS: FLUTICASONE 0.05% 16 GM NAS SPRAY NASAL SCH ×2 (08:02→20:40)
[2018-10-25] MEDS: AMIODARONE 200 MG TAB PO SCH ×2 (09:39→20:40)
[2018-10-25] MEDS: LEVETIRACETAM 500 MG (PMX) 100 ML IVPB SCH ×2 (09:39→20:38)
--- NOTE | 2018-10-25 12:09 | PN ---
Date/Time of Note Date/Time of Note DATE: 10/25/18 TIME: 12:08 Assessment/Plan VTE Prophylaxis Risk score (from Ns)>0 risk: 10 SCD applied (from Ns): Yes Pharmacological prophylaxis: LMWH Lines/Catheters IV [facility]atheter Type (from [facility]): PICC Line Central line still needed: Yes Urinary Cath still in place: Yes Reason Cath still needed: skin wounds contaminated by urine Assessment/Plan Hospital Course 1. Upper gastrointestinal bleed due to duodenal ulcer. Continue to monitor H and H, also will be continued on IV Protonix. 2. [id number] kidney disease. The patient's BUN and creatinine have improved. The patient remains on IV fluid. 3. Cardiomyopathy. Continue carvedilol. 4. Recent urinary tract infection. Continue ceftriaxone. Urine culture was sent again and it is still positive for Escherichia coli sensitive to Rocephin. 5. Hypertension. Blood pressure well controlled with carvedilol. 6. Paroxysmal atrial fibrillation. The patient is currently in sinus rhythm. Continue amiodarone. 7. Seizure disorder. Continue Keppra. 8. History of cerebrovascular accident. The patient cannot be on antiplatelet agent at this time due to massive upper gastrointestinal bleed. We will wait for GI clearance. Result Diagram: 10/25/18 0525 10/25/18 0525 Results 24hrs Laboratory Tests Test 10/24/18 12:11 10/24/18 16:48 10/24/18 20:31 10/25/18 05:25 Bedside Glucose 194 141 164 White Blood Count 6.3 Red Blood Count 2.85 L Hemoglobin 9.0 L Hematocrit 26.6 L Mean Corpuscular 93.3 Volume Mean Corpuscular 31.6 Hemoglobin Mean Corpuscular 33.8 Hemoglobin Concent Red Cell 14.3 Distribution Width Platelet Count 176 Mean Platelet Volume 10.9 H Immature 1.300 H Granulocytes % Neutrophils % 71.5 Lymphocytes % 16.1 Monocytes % 6.2 Eosinophils % 4.6 Basophils % 0.3 Nucleated Red Blood 0.0 Cells % Immature 0.080 H Granulocytes # Neutrophils # 4.5 Lymphocytes # 1.0 Monocytes # 0.4 Eosinophils # 0.3 Basophils # 0.0 Nucleated Red Blood 0.0 Cells # Sodium Level 139 Potassium Level 3.7 Chloride Level 105 Carbon Dioxide Level 25 Anion Gap 9 Blood Urea Nitrogen 8 Creatinine 0.71 Est Glomerular Filtrat Rate mL/min Glucose Level 124 Calcium Level 7.9 L Test 10/25/18 08:00 10/25/18 11:47 Bedside Glucose 130 154 Subjective 24 Hr Interval Summary Free Text/Dictation Patient complain of abdominal pain Exam/Review of Systems Exam Vitals Vital Signs Date Temp Pulse Resp B/P (MAP) Pulse Ox O2 O2 Flow FiO2 Time Delivery Rate 10/25/18 61 11:50 10/25/18 98.9 18 159/67 97 11:23 (97) 10/22/18 Room Air 18:00 10/22/18 2 13:00 Intake and Output 10/24/18 10/24/18 10/25/18 1515:00 23:00 07:00 IntakeIntake Total 950 ml 1150 ml OutputOutput Total 1600 ml 1200 ml BalanceBalance -650 ml -50 ml Constitutional: well developed Head: normocephalic, atraumatic Neck: supple Respiratory: diminished breath sounds Cardiovascular: regular rate and rhythm Gastrointestinal: soft, non-tender Extremities: normal pulses Results Results 24hrs Laboratory Tests Test 10/24/18 12:11 10/24/18 16:48 10/24/18 20:31 10/25/18 05:25 Bedside Glucose 194 141 164 White Blood Count 6.3 Red Blood Count 2.85 L Hemoglobin 9.0 L Hematocrit 26.6 L Mean Corpuscular 93.3 Volume Mean Corpuscular 31.6 Hemoglobin Mean Corpuscular 33.8 Hemoglobin Concent Red Cell 14.3 Distribution Width Platelet Count 176 Mean Platelet Volume 10.9 H Immature 1.300 H Granulocytes % Neutrophils % 71.5 Lymphocytes % 16.1 Monocytes % 6.2 Eosinophils % 4.6 Basophils % 0.3 Nucleated Red Blood 0.0 Cells % Immature 0.080 H Granulocytes # Neutrophils # 4.5 Lymphocytes # 1.0 Monocytes # 0.4 Eosinophils # 0.3 Basophils # 0.0 Nucleated Red Blood 0.0 Cells # Sodium Level 139 Potassium Level 3.7 Chloride Level 105 Carbon Dioxide Level 25 Anion Gap 9 Blood Urea Nitrogen 8 Creatinine 0.71 Est Glomerular Filtrat Rate mL/min Glucose Level 124 Calcium Level 7.9 L Test 10/25/18 08:00 10/25/18 11:47 Bedside Glucose 130 154 Medications Medication Current Medications Ondansetron HCl (Zofran Inj) 4 mg Q4H PRN IV NAUSEA AND/OR VOMITING Last administered on 10/19/18 21:53; Admin Dose 4 MG; Start 10/18/18 at 08:30 Hydralazine HCl (Apresoline) 20 mg Q6H PRN IV sbp>160,dbp>95 Last administered on 10/24/18 20:35; Admin Dose 20 MG; Start 10/18/18 at 08:30 Insulin Aspart (Novolog Insulin Pen) NOVOLOG *MILD* ALGORITHM WITH MEALS BEDTIME SC Last administered on 10/25/18 11:51; Admin Dose 1 UNIT; Start 10/18/18 at 11:30 Atorvastatin Calcium (Lipitor) 40 mg HS PO Last administered on 10/24/18 20:32; Admin Dose 40 MG; Start 10/18/18 at 21:00 Morphine Sulfate (morphine) 2 mg Q4H PRN IV SEVERE PAIN LEVEL 7-10; Start 10/18/18 at 21:00 Miscellaneous Information 1 ea NOTE XX ; Start 10/19/18 at 08:30 Glucose (Glutose) 15 gm Q15M PRN PO DECREASED GLUCOSE; Start 10/19/18 at 08:30 Glucose (Glutose) 22.5 gm Q15M PRN PO DECREASED GLUCOSE; Start 10/19/18 at 08:30 Dextrose (D50w Syringe) 25 ml Q15M PRN IV DECREASED GLUCOSE; Start 10/19/18 at 08:30 Dextrose (D50w Syringe) 50 ml Q15M PRN IV DECREASED GLUCOSE; Start 10/19/18 at 08:30 Glucagon (Glucagen) 1 mg Q15M PRN IM DECREASED GLUCOSE; Start 10/19/18 at 08:30 Glucose (Glutose) 15 gm Q15M PRN BUCCAL DECREASED GLUCOSE; Start 10/19/18 at 08:30 Amiodarone HCl (Cordarone) 200 mg BID PO Last administered on 10/25/18 09:39; Admin Dose 200 MG; Start 10/19/18 at 12:30 Carvedilol (Coreg) 6.25 mg BID PO Last administered on 10/25/18 09:39; Admin Dose 6.25 MG; Start 10/20/18 at 21:00 Levetiracetam 100 ml @ 400 mls/hr Q12 IVPB Last administered on 10/25/18 09:39; Admin Dose 400 MLS/HR; Start 10/20/18 at 21:00 Brimonidine Tartrate (Alphagan P 0.15%) 1 drop BID BOTH EYES Last administered on 10/25/18 08:02; Admin Dose 1 DROP; Start 10/20/18 at 21:00 Eye Lubricant (Artificial Tears Oph) 1 drop QID BOTH EYES Last administered on 10/25/18 08:02; Admin Dose 1 DROP; Start 10/20/18 at 18:30 Fluticasone Propionate (Flonase 0.05% Nasal) 1 spray BID NASAL Last administered on 10/25/18 08:02; Admin Dose 1 SPRAY; Start 10/21/18 at 09:00 Sodium Chloride 1,000 ml @ 50 mls/hr Q20H IV Last administered on 10/25/18 0 6:28; Admin Dose 50 MLS/HR; Start 10/21/18 at 09:00 Sucralfate (Carafate Susp) 1 gm QID PO Last administered on 10/25/18 08:01; Admin Dose 1 GM; Start 10/21/18 at 19:00 IV Flush (NS 10 ml) 10 ml PRN PRN IV IV PROTOCOL; Start 10/22/18 at 12:00 Pantoprazole (Protonix Tab) 40 mg BID@0800,1600 PO Last administered on 10/25/18 08:01; Admin Dose 40 MG; Start 10/23/18 at 16:00 YOKO SCOTT 24, 2019 12:09
--- NOTE | 2018-10-25 13:00 | CONS ---
Assessment/Plan Assessment/Plan Assessment/Plan (Daily) 1. acute hyperkalemia- resolved 2. acute Prerenal azotemia from Upper GI bleeding 3. acute Upper GI bleeding 4. History of CVA 5. Left vertebral artery stenosis 6. H/o Hypertension 7. H/o Diabetes 8. H/o History of cardiomyopathy, current echocardiogram with ejection fraction 55% 9. H/o Paroxysmal atrial fibrillation 10. Hypernatremia Plan: s/p GI work up and EGD for upper GI bleeding, Hb 8.7 today Na improved to normal today , continue IVF 1/2 NS at 50 cc/hr uo 2.8 L will follow up - Patient seen in collaboration with Dr Leslie Tate. Dw staff Consultation Date/Type/Reason Admit Date/Time Oct 18, 2018 at 07:52 Initial Consult Date 10/21/18 Requesting Provider: MAGDI EDWARDS MD Date/Time of Note DATE: 10/25/18 TIME: 12:59 24 HR Interval Summary Free Text/Dictation NAD VSS seems comfortable family at bed side- all Qs answered no new evens reported last night dw staff Constitutional: requiring O2 Detailed Summary Eyes: no complaints ENT: no complaints Cardiovascular: no complaints Gastrointestinal: no complaints Genitourinary: no complaints Musculoskeletal: no complaints Exam/Review of Systems Exam Vitals Vital Signs Date Temp Pulse Resp B/P (MAP) Pulse Ox O2 O2 Flow FiO2 Time Delivery Rate 10/25/18 61 11:50 10/25/18 98.9 18 159/67 97 11:23 (97) 10/22/18 Room Air 18:00 10/22/18 2 13:00 Intake and Output 10/24/18 10/24/18 10/25/18 1414:59 22:59 06:59 IntakeIntake Total 950 ml 1150 ml OutputOutput Total 1600 ml 1200 ml BalanceBalance -650 ml -50 ml Constitutional: alert, well developed Psych: nl mood/affect Eyes: nl lids, nl sclera ENMT: nl external ears & nose Neck: non-tender Respiratory: diminished breath sounds (at bases bilaterally) Cardiovascular: nl pulses, other (s1s2) Gastrointestinal: soft, non-tender Musculoskeletal: muscle weakness Extremities: normal pulses Neurological: nl speech Results Result Diagram: 10/25/1825 10/25/18 0525 Results 24hrs Laboratory Tests Test 10/24/18 16:48 10/24/18 20:31 10/25/18 05:25 10/25/18 08:00 Bedside Glucose 141 164 130 White Blood Count 6.3 Red Blood Count 2.85 L Hemoglobin 9.0 L Hematocrit 26.6 L Mean Corpuscular 93.3 Volume Mean Corpuscular 31.6 Hemoglobin Mean Corpuscular 33.8 Hemoglobin Concent Red Cell 14.3 Distribution Width Platelet Count 176 Mean Platelet Volume 10.9 H Immature 1.300 H Granulocytes % Neutrophils % 71.5 Lymphocytes % 16.1 Monocytes % 6.2 Eosinophils % 4.6 Basophils % 0.3 Nucleated Red Blood 0.0 Cells % Immature 0.080 H Granulocytes # Neutrophils # 4.5 Lymphocytes # 1.0 Monocytes # 0.4 Eosinophils # 0.3 Basophils # 0.0 Nucleated Red Blood 0.0 Cells # Sodium Level 139 Potassium Level 3.7 Chloride Level 105 Carbon Dioxide Level 25 Anion Gap 9 Blood Urea Nitrogen 8 Creatinine 0.71 Est Glomerular Filtrat Rate mL/min Glucose Level 124 Calcium Level 7.9 L Test 10/25/18 11:47 Bedside Glucose 154 Medications Medication Current Medications Ondansetron HCl (Zofran Inj) 4 mg Q4H PRN IV NAUSEA AND/OR VOMITING Last administered on 10/19/18at 21:53; Admin Dose 4 MG; Start 10/18/18 at 08:30 Hydralazine HCl (Apresoline) 20 mg Q6H PRN IV sbp>160,dbp>95 Last administered on 10/24/18at 20:35; Admin Dose 20 MG; Start 10/18/18 at 08:30 Insulin Aspart (Novolog Insulin Pen) NOVOLOG *MILD* ALGORITHM WITH MEALS BEDTIME SC Last administered on 10/25/18at 11:51; Admin Dose 1 UNIT; Start 10/18/18 at 11:30 Atorvastatin Calcium (Lipitor) 40 mg HS PO Last administered on 10/24/18at 20:32; Admin Dose 40 MG; Start 10/18/18 at 21:00 Morphine Sulfate (morphine) 2 mg Q4H PRN IV SEVERE PAIN LEVEL 7-10; Start 10/18/18 at 21:00 Miscellaneous Information 1 ea NOTE XX ; Start 10/19/18 at 08:30 Glucose (Glutose) 15 gm Q15M PRN PO DECREASED GLUCOSE; Start 10/19/18 at 08:30 Glucose (Glutose) 22.5 gm Q15M PRN PO DECREASED GLUCOSE; Start 10/19/18 at 08:30 Dextrose (D50w Syringe) 25 ml Q15M PRN IV DECREASED GLUCOSE; Start 10/19/18 at 08:30 Dextrose (D50w Syringe) 50 ml Q15M PRN IV DECREASED GLUCOSE; Start 10/19/18 at 08:30 Glucagon (Glucagen) 1 mg Q15M PRN IM DECREASED GLUCOSE; Start 10/19/18 at 08:30 Glucose (Glutose) 15 gm Q15M PRN BUCCAL DECREASED GLUCOSE; Start 10/19/18 at 08:30 Amiodarone HCl (Cordarone) 200 mg BID PO Last administered on 10/25/18 09:39; Admin Dose 200 MG; Start 10/19/18 at 12:30 Carvedilol (Coreg) 6.25 mg BID PO Last administered on 10/25/18 09:39; Admin Dose 6.25 MG; Start 10/20/18 at 21:00 Levetiracetam 100 ml @ 400 mls/hr Q12 IVPB Last administered on 10/25/18 09:39; Admin Dose 400 MLS/HR; Start 10/20/18 at 21:00 Brimonidine Tartrate (Alphagan P 0.15%) 1 drop BID BOTH EYES Last administered on 10/25/18 08:02; Admin Dose 1 DROP; Start 10/20/18 at 21:00 Eye Lubricant (Artificial Tears Oph) 1 drop QID BOTH EYES Last administered on 10/25/18 08:02; Admin Dose 1 DROP; Start 10/20/18 at 18:30 Fluticasone Propionate (Flonase 0.05% Nasal) 1 spray BID NASAL Last administered on 10/25/18 08:02; Admin Dose 1 SPRAY; Start 10/21/18 at 09:00 Sodium Chloride 1,000 ml @ 50 mls/hr Q20H IV Last administered on 10/25/18 06:28; Admin Dose 50 MLS/HR; Start 10/21/18 at 09:00 Sucralfate (Carafate Susp) 1 gm QID PO Last administered on 10/25/18 08:01; Admin Dose 1 GM; Start 10/21/18 at 19:00 IV Flush (NS 10 ml) 10 ml PRN PRN IV IV PROTOCOL; Start 10/22/18 at 12:00 Pantoprazole (Protonix Tab) 40 mg BID@0800,1600 PO Last administered on 10/25/18at 08:01; Admin Dose 40 MG; Start 10/23/18 at 16:00 DANO MILLER Oct 25, 2018 13:00
--- NOTE | 2018-10-25 14:36 | CONS ---
Assessment/Plan Assessment/Plan Hospital Course (Demo Recall) Upper GI bleed History of CVA Left vertebral artery stenosis Hypertension Cerebral artery disease Diabetes History of cardiomyopathy, current echocardiogram with ejection fraction 55% Paroxysmal atrial fibrillation -Patient with upper GI bleed and thought secondary to NSAID use and Plavix. Patient was on Plavix because of known cerebrovascular disease and history of CVA on previous admissions. Undergoing GI work up -Patient with paroxysmal atrial fibrillation noted on telemetry and currently sinus rhythm. Given recent GI bleed, cannot tolerate anticoagulation. Continue beta-katherine and amiodarone as tolerated. Consultation Date/Type/Reason Admit Date/Time Oct 18, 2018 at 07:52 Initial Consult Date 10/18/18 Type of Consult Cardiology Requesting Provider: MAGDI EDWARDS MD Date/Time of Note DATE: 10/25/18 TIME: 14:35 24 HR Interval Summary Free Text/Dictation Patient seen and examined Exam/Review of Systems Vital Signs Vitals Vital Signs Date Temp Pulse Resp B/P (MAP) Pulse Ox O2 O2 Flow FiO2 Time Delivery Rate 10/25/18 61 11:50 10/25/18 98.9 18 159/67 97 11:23 (97) 10/22/18 Room Air 18:00 10/22/18 2 13:00 Intake and Output 10/24/18 10/24/18 10/25/18 1515:00 23:00 07:00 IntakeIntake Total 950 ml 1150 ml OutputOutput Total 1600 ml 1200 ml BalanceBalance -650 ml -50 ml Exam Constitutional: alert (Following commands, no apparent distress) Head: normocephalic Respiratory: other (Coarse breath sounds bilaterally, no wheezing) Cardiovascular: regular rate and rhythm (S1-S2 heard) Gastrointestinal: soft, non-tender, bowel sounds Extremities: other (No significant edema) Labs Result Diagram: 10/25/1825 10/25/18 0525 Results 24hrs Laboratory Tests Test 10/24/18 16:48 10/24/18 20:31 10/25/18 05:25 10/25/18 08:00 Bedside Glucose 141 164 130 White Blood Count 6.3 Red Blood Count 2.85 L Hemoglobin 9.0 L Hematocrit 26.6 L Mean Corpuscular 93.3 Volume Mean Corpuscular 31.6 Hemoglobin Mean Corpuscular 33.8 Hemoglobin Concent Red Cell 14.3 Distribution Width Platelet Count 176 Mean Platelet Volume 10.9 H Immature 1.300 H Granulocytes % Neutrophils % 71.5 Lymphocytes % 16.1 Monocytes % 6.2 Eosinophils % 4.6 Basophils % 0.3 Nucleated Red Blood 0.0 Cells % Immature 0.080 H Granulocytes # Neutrophils # 4.5 Lymphocytes # 1.0 Monocytes # 0.4 Eosinophils # 0.3 Basophils # 0.0 Nucleated Red Blood 0.0 Cells # Sodium Level 139 Potassium Level 3.7 Chloride Level 105 Carbon Dioxide Level 25 Anion Gap 9 Blood Urea Nitrogen 8 Creatinine 0.71 Est Glomerular Filtrat Rate mL/min Glucose Level 124 Calcium Level 7.9 L Test 10/25/18 11:47 Bedside Glucose 154 Medications Medications Current Medications Ondansetron HCl (Zofran Inj) 4 mg Q4H PRN IV NAUSEA AND/OR VOMITING Last administered on 10/19/18 21:53; Admin Dose 4 MG; Start 10/18/18 at 08:30 Hydralazine HCl (Apresoline) 20 mg Q6H PRN IV sbp>160,dbp>95 Last administered on 10/24/18at 20:35; Admin Dose 20 MG; Start 10/18/18 at 08:30 Insulin Aspart (Novolog Insulin Pen) NOVOLOG *MILD* ALGORITHM WITH MEALS BEDTI ME SC Last administered on 10/25/18 11:51; Admin Dose 1 UNIT; Start 10/18/18 at 11:30 Atorvastatin Calcium (Lipitor) 40 mg HS PO Last administered on 10/24/18at 20:32; Admin Dose 40 MG; Start 10/18/18 at 21:00 Morphine Sulfate (morphine) 2 mg Q4H PRN IV SEVERE PAIN LEVEL 7-10; Start 10/18/18 at 21:00 Miscellaneous Information 1 ea NOTE XX ; Start 10/19/18 at 08:30 Glucose (Glutose) 15 gm Q15M PRN PO DECREASED GLUCOSE; Start 10/19/18 at 08:30 Glucose (Glutose) 22.5 gm Q15M PRN PO DECREASED GLUCOSE; Start 10/19/18 at 08:30 Dextrose (D50w Syringe) 25 ml Q15M PRN IV DECREASED GLUCOSE; Start 10/19/18 at 08:30 Dextrose (D50w Syringe) 50 ml Q15M PRN IV DECREASED GLUCOSE; Start 10/19/18 at 08:30 Glucagon (Glucagen) 1 mg Q15M PRN IM DECREASED GLUCOSE; Start 10/19/18 at 08:30 Glucose (Glutose) 15 gm Q15M PRN BUCCAL DECREASED GLUCOSE; Start 10/19/18 at 08:30 Amiodarone HCl (Cordarone) 200 mg BID PO Last administered on 10/25/18 09:39; Admin Dose 200 MG; Start 10/19/18 at 12:30 Carvedilol (Coreg) 6.25 mg BID PO Last administered on 10/25/18 09:39; Admin Dose 6.25 MG; Start 10/20/18 at 21:00 Levetiracetam 100 ml @ 400 mls/hr Q12 IVPB Last administered on 10/25/18 09:39; Admin Dose 400 MLS/HR; Start 10/20/18 at 21:00 Brimonidine Tartrate (Alphagan P 0.15%) 1 drop BID BOTH EYES Last administered on 10/25/18 08:02; Admin Dose 1 DROP; Start 10/20/18 at 21:00 Eye Lubricant (Artificial Tears Oph) 1 drop QID BOTH EYES Last administered on 10/25/18 13:23; Admin Dose 1 DROP; Start 10/20/18 at 18:30 Fluticasone Propionate (Flonase 0.05% Nasal) 1 spray BID NASAL Last administe red on 10/25/18 08:02; Admin Dose 1 SPRAY; Start 10/21/18 at 09:00 Sodium Chloride 1,000 ml @ 50 mls/hr Q20H IV Last administered on 10/25/18 06:28; Admin Dose 50 MLS/HR; Start 10/21/18 at 09:00 Sucralfate (Carafate Susp) 1 gm QID PO Last administered on 10/25/18 13:23; Admin Dose 1 GM; Start 10/21/18 at 19:00 IV Flush (NS 10 ml) 10 ml PRN PRN IV IV PROTOCOL; Start 10/22/18 at 12:00 Pantoprazole (Protonix Tab) 40 mg BID@0800,1600 PO Last administered on 10/25/18 08:01; Admin Dose 40 MG; Start 10/23/18 at 16:00 Omega Chinchilla DO Oct 25, 2018 14:36
[2018-10-25] MEDS: ATORVASTATIN 40 MG TAB PO SCH (20:39)
[2018-10-26] VITALS (16 sets, daily range): BP systolic 128–196; BP diastolic 67–101; PULSE 58–79; RESP 18–27
[2018-10-26] MEDS: SOD CHLORIDE 0.45% 1,000 ML IV SCH ×2 (04:37→21:51)
[2018-10-26] MEDS: INSULIN ASPART [NOVOLOG] 3 ML PEN SC SCH ×4 (07:33→21:00)
[2018-10-26] MEDS: PANTOPRAZOLE (EC) 40 MG TAB PO SCH ×2 (07:33→15:43)
[2018-10-26] MEDS: SUCRALFATE (100 MG/ML) 10ML CUP PO SCH ×4 (08:39→22:43)
[2018-10-26] MEDS: AMIODARONE 200 MG TAB PO SCH ×2 (08:41→22:42)
[2018-10-26] MEDS: LEVETIRACETAM 500 MG (PMX) 100 ML IVPB SCH ×2 (08:45→20:41)
[2018-10-26] MEDS: BRIMONIDINE 0.15% 5 ML OPH BOTH EYES SCH ×2 (08:46→22:43)
[2018-10-26] MEDS: FLUTICASONE 0.05% 16 GM NAS SPRAY NASAL SCH ×2 (08:46→22:44)
[2018-10-26] MEDS: ARTIFICIAL TEARS 15 ML OPH BOTH EYES SCH ×4 (08:46→22:43)
--- NOTE | 2018-10-26 11:54 | CONS ---
Assessment/Plan Assessment/Plan Assessment/Plan (Daily) 1. acute hyperkalemia 2. acute Prerenal azotemia from Upper GI bleeding 3. acute Upper GI bleeding 4. History of CVA 5. Left vertebral artery stenosis 6. H/o Hypertension 7. H/o Diabetes 8. H/o History of cardiomyopathy, current echocardiogram with ejection fraction 55% 9. H/o Paroxysmal atrial fibrillation 10. Hypernatremia Plan: s/p GI work up and EGD for upper GI bleeding, Hb 9.1 today, BUN/Cr 8//0.73 Na improved to normal today , continue IVF 1/2 NS at 50 cc/hr Amlodipine 10mg po daily for HTN will follow up Consultation Date/Type/Reason Admit Date/Time Oct 18, 2018 at 07:52 Initial Consult Date 10/21/18 Type of Consult NEPHROLOGY Requesting Provider: MAGDI EDWARDS MD Date/Time of Note DATE: 10/26/18 TIME: 11:54 Exam/Review of Systems Exam Vitals Vital Signs Date Temp Pulse Resp B/P (MAP) Pulse Ox O2 O2 Flow FiO2 Time Delivery Rate 10/26/18 65 08:42 10/26/18 98.9 19 164/78 96 08:06 (106) 10/22/18 Room Air 18:00 10/22/18 2 13:00 Intake and Output 10/25/18 10/25/18 10/26/18 1515:00 23:00 07:00 IntakeIntake Total 1000 ml 450 ml OutputOutput Total 1000 ml 1700 ml BalanceBalance 0 ml -1250 ml Exam Constitutional: alert, well developed Respiratory: clear to auscultation Cardiovascular: nl pulses, other (s1s2) Gastrointestinal: soft, non-tender Musculoskeletal: muscle weakness Extremities: normal pulses Neurological: other (alert/repsonsive) Results Result Diagram: 10/26/18 0551 10/26/18 0551 Results 24hrs Laboratory Tests Test 10/25/18 17:07 10/25/18 20:38 10/26/18 05:51 10/26/18 07:26 Bedside Glucose 159 175 137 White Blood Count 5.8 Red Blood Count 2.98 L Hemoglobin 9.3 L Hematocrit 27.8 L Mean Corpuscular 93.3 Volume Mean Corpuscular 31.2 Hemoglobin Mean Corpuscular 33.5 Hemoglobin Concent Red Cell 14.3 Distribution Width Platelet Count 220 # Mean Platelet Volume 10.5 H Immature 0.900 H Granulocytes % Neutrophils % 68.1 Lymphocytes % 18.6 Monocytes % 6.6 Eosinophils % 5.5 Basophils % 0.3 Nucleated Red Blood 0.0 Cells % Immature 0.050 H Granulocytes # Neutrophils # 4.0 Lymphocytes # 1.1 Monocytes # 0.4 Eosinophils # 0.3 Basophils # 0.0 Nucleated Red Blood 0.0 Cells # Sodium Level 138 Potassium Level 3.7 Chloride Level 106 Carbon Dioxide Level 27 Anion Gap 5 Blood Urea Nitrogen 8 Creatinine 0.73 Est Glomerular Filtrat Rate mL/min Glucose Level 130 Calcium Level 8.2 L Test 10/26/18 11:29 Bedside Glucose 193 Medications Medication Current Medications Ondansetron HCl (Zofran Inj) 4 mg Q4H PRN IV NAUSEA AND/OR VOMITING Last administered on 10/19/18 21:53; Admin Dose 4 MG; Start 10/18/18 at 08:30 Hydralazine HCl (Apresoline) 20 mg Q6H PRN IV sbp>160,dbp>95 Last administered on 10/24/18at 20:35; Admin Dose 20 MG; Start 10/18/18 at 08:30 Insulin Aspart (Novolog Insulin Pen) NOVOLOG *MILD* ALGORITHM WITH MEALS BEDTIME SC Last administered on 10/26/18at 11:38; Admin Dose 2 UNIT; Start 10/18/18 at 11:30 Atorvastatin Calcium (Lipitor) 40 mg HS PO Last administered on 10/25/18at 20:39; Admin Dose 40 MG; Start 10/18/18 at 21:00 Morphine Sulfate (morphine) 2 mg Q4H PRN IV SEVERE PAIN LEVEL 7-10; Start 10/18/18 at 21:00 Miscellaneous Information 1 ea NOTE XX ; Start 10/19/18 at 08:30 Glucose (Glutose) 15 gm Q15M PRN PO DECREASED GLUCOSE; Start 10/19/18 at 08:30 Glucose (Glutose) 22.5 gm Q15M PRN PO DECREASED GLUCOSE; Start 10/19/18 at 08:30 Dextrose (D50w Syringe) 25 ml Q15M PRN IV DECREASED GLUCOSE; Start 10/19/18 at 08:30 Dextrose (D50w Syringe) 50 ml Q15M PRN IV DECREASED GLUCOSE; Start 10/19/18 at 08:30 Glucagon (Glucagen) 1 mg Q15M PRN IM DECREASED GLUCOSE; Start 10/19/18 at 08:30 Glucose (Glutose) 15 gm Q15M PRN BUCCAL DECREASED GLUCOSE; Start 10/19/18 at 08:30 Amiodarone HCl (Cordarone) 200 mg BID PO Last administered on 10/26/18 08:41; Admin Dose 200 MG; Start 10/19/18 at 12:30 Carvedilol (Coreg) 6.25 mg BID PO Last administered on 10/26/18 08:41; Admin Dose 6.25 MG; Start 10/20/18 at 21:00 Levetiracetam 100 ml @ 400 mls/hr Q12 IVPB Last administered on 10/26/18 08:45; Admin Dose 400 MLS/HR; Start 10/20/18 at 21:00 Brimonidine Tartrate (Alphagan P 0.15%) 1 drop BID BOTH EYES Last administered on 10/26/18 08:46; Admin Dose 1 DROP; Start 10/20/18 at 21:00 Eye Lubricant (Artificial Tears Oph) 1 drop QID BOTH EYES Last administered on 10/26/18 08:46; Admin Dose 1 DROP; Start 10/20/18 at 18:30 Fluticasone Propionate (Flonase 0.05% Nasal) 1 spray BID NASAL Last administered on 10/26/18 08:46; Admin Dose 1 SPRAY; Start 10/21/18 at 09:00 Sodium Chloride 1,000 ml @ 50 mls/hr Q20H IV Last administered on 10/26/18 04:37; Admin Dose 50 MLS/HR; Start 10/21/18 at 09:00 Sucralfate (Carafate Susp) 1 gm QID PO Last administered on 10/26/18 08:39; Admin Dose 1 GM; Start 10/21/18 at 19:00 IV Flush (NS 10 ml) 10 ml PRN PRN IV IV PROTOCOL; Start 10/22/18 at 12:00 Pantoprazole (Protonix Tab) 40 mg BID@0800,1600 PO Last administered on 10/26/18 07:33; Admin Dose 40 MG; Start 10/23/18 at 16:00 RICK ESCAMILLA MD 25, 2019 11:54
--- NOTE | 2018-10-26 12:17 | CONS ---
Assessment/Plan Assessment/Plan Hospital Course (Demo Recall) Upper GI bleed History of CVA Left vertebral artery stenosis Hypertension Cerebral artery disease Diabetes History of cardiomyopathy, current echocardiogram with ejection fraction 55% Paroxysmal atrial fibrillation -Patient with upper GI bleed and thought secondary to NSAID use and Plavix. Patient was on Plavix because of known cerebrovascular disease and history of CVA on previous admissions. Undergoing GI work up -Patient with paroxysmal atrial fibrillation noted on telemetry and currently sinus rhythm. Given recent GI bleed, cannot tolerate anticoagulation. Continue beta-katherine and amiodarone as tolerated. -Blood pressure on the higher side, would start lisinopril Consultation Date/Type/Reason Admit Date/Time Oct 18, 2018 at 07:52 Initial Consult Date 10/18/18 Type of Consult Cardiology Requesting Provider: MAGDI EDWARDS MD Date/Time of Note DATE: 10/26/18 TIME: 12:16 24 HR Interval Summary Free Text/Dictation No shortness of breath, chest pain, palpitations Exam/Review of Systems Vital Signs Vitals Vital Signs Date Temp Pulse Resp B/P (MAP) Pulse Ox O2 O2 Flow FiO2 Time Delivery Rate 10/26/18 98.8 78 20 163/72 98 11:56 (102) 10/22/18 Room Air 18:00 10/22/18 2 13:00 Intake and Output 10/25/18 10/25/18 10/26/18 1515:00 23:00 07:00 IntakeIntake Total 1000 ml 450 ml OutputOutput Total 1000 ml 1700 ml BalanceBalance 0 ml -1250 ml Exam Constitutional: alert (No apparent distress, following commands) Head: normocephalic Respiratory: other (Coarse breath sounds bilaterally, no wheezing) Cardiovascular: regular rate and rhythm (S1-S2 heard) Gastrointestinal: soft, non-tender, bowel sounds Extremities: edema (Trace) Labs Result Diagram: 10/26/18 0551 10/26/18 0551 Results 24hrs Laboratory Tests Test 10/25/18 17:07 10/25/18 20:38 10/26/18 05:51 10/26/18 07:26 Bedside Glucose 159 175 137 White Blood Count 5.8 Red Blood Count 2.98 L Hemoglobin 9.3 L Hematocrit 27.8 L Mean Corpuscular 93.3 Volume Mean Corpuscular 31.2 Hemoglobin Mean Corpuscular 33.5 Hemoglobin Concent Red Cell 14.3 Distribution Width Platelet Count 220 # Mean Platelet Volume 10.5 H Immature 0.900 H Granulocytes % Neutrophils % 68.1 Lymphocytes % 18.6 Monocytes % 6.6 Eosinophils % 5.5 Basophils % 0.3 Nucleated Red Blood 0.0 Cells % Immature 0.050 H Granulocytes # Neutrophils # 4.0 Lymphocytes # 1.1 Monocytes # 0.4 Eosinophils # 0.3 Basophils # 0.0 Nucleated Red Blood 0.0 Cells # Sodium Level 138 Potassium Level 3.7 Chloride Level 106 Carbon Dioxide Level 27 Anion Gap 5 Blood Urea Nitrogen 8 Creatinine 0.73 Est Glomerular Filtrat Rate mL/min Glucose Level 130 Calcium Level 8.2 L Test 10/26/18 11:29 Bedside Glucose 193 Medications Medications Current Medications Ondansetron HCl (Zofran Inj) 4 mg Q4H PRN IV NAUSEA AND/OR VOMITING Last administered on 10/19/18 21:53; Admin Dose 4 MG; Start 10/18/18 at 08:30 Hydralazine HCl (Apresoline) 20 mg Q6H PRN IV sbp>160,dbp>95 Last administered on 10/24/18at 20:35; Admin Dose 20 MG; Start 10/18/18 at 08:30 Insulin Aspart (Novolog Insulin Pen) NOVOLOG *MILD* ALGORITHM WITH MEALS BEDTIME SC Last administered on 10/26/18 11:38; Admin Dose 2 UNIT; Start 10/18/18 at 11:30 Atorvastatin Calcium (Lipitor) 40 mg HS PO Last administered on 10/25/18 20:39; Admin Dose 40 MG; Start 10/18/18 at 21:00 Morphine Sulfate (morphine) 2 mg Q4H PRN IV SEVERE PAIN LEVEL 7-10; Start 10/18/18 at 21:00 Miscellaneous Information 1 ea NOTE XX ; Start 10/19/18 at 08:30 Glucose (Glutose) 15 gm Q15M PRN PO DECREASED GLUCOSE; Start 10/19/18 at 08:30 Glucose (Glutose) 22.5 gm Q15M PRN PO DECREASED GLUCOSE; Start 10/19/18 at 08:30 Dextrose (D50w Syringe) 25 ml Q15M PRN IV DECREASED GLUCOSE; Start 10/19/18 at 08:30 Dextrose (D50w Syringe) 50 ml Q15M PRN IV DECREASED GLUCOSE; Start 10/19/18 at 08:30 Glucagon (Glucagen) 1 mg Q15M PRN IM DECREASED GLUCOSE; Start 10/19/18 at 08:30 Glucose (Glutose) 15 gm Q15M PRN BUCCAL DECREASED GLUCOSE; Start 10/19/18 at 08:30 Amiodarone HCl (Cordarone) 200 mg BID PO Last administered on 10/26/18 08:41; Admin Dose 200 MG; Start 10/19/18 at 12:30 Carvedilol (Coreg) 6.25 mg BID PO Last administered on 10/26/18 08:41; Admin Dose 6.25 MG; Start 10/20/18 at 21:00 Levetiracetam 100 ml @ 400 mls/hr Q12 IVPB Last administered on 10/26/18 08:45; Admin Dose 400 MLS/HR; Start 10/20/18 at 21:00 Brimonidine Tartrate (Alphagan P 0.15%) 1 drop BID BOTH EYES Last administered on 10/26/18 08:46; Admin Dose 1 DROP; Start 10/20/18 at 21:00 Eye Lubricant (Artificial Tears Oph) 1 drop QID BOTH EYES Last administered on 10/26/18 08:46; Admin Dose 1 DROP; Start 10/20/18 at 18:30 Fluticasone Propionate (Flonase 0.05% Nasal) 1 spray BID NASAL Last administered on 10/26/18 08:46; Admin Dose 1 SPRAY; Start 10/21/18 at 09:00 Sodium Chloride 1,000 ml @ 50 mls/hr Q20H IV Last administered on 10/26/18 04:37; Admin Dose 50 MLS/HR; Start 10/21/18 at 09:00 Sucralfate (Carafate Susp) 1 gm QID PO Last administered on 10/26/18 08:39; Admin Dose 1 GM; Start 10/21/18 at 19:00 IV Flush (NS 10 ml) 10 ml PRN PRN IV IV PROTOCOL; Start 10/22/18 at 12:00 Pantoprazole (Protonix Tab) 40 mg BID@0800,1600 PO Last administered on 10/26/18 07:33; Admin Dose 40 MG; Start 3/22/19 at 16:00 Omega Chinchilla DO Oct 26, 2018 12:17
[2018-10-26] MEDS: LISINOPRIL 5 MG TAB PO SCH (12:26)
--- NOTE | 2018-10-26 15:57 | PN ---
Date/Time of Note Date/Time of Note DATE: 10/26/18 TIME: 15:52 Assessment/Plan VTE Prophylaxis Risk score (from Ns)>0 risk: 10 SCD applied (from Ns): Yes Pharmacological prophylaxis: NA/contraindicated Pharm contraindication: bleeding Lines/Catheters [facility] PICC Line Central line still needed: Yes Urinary Cath still in place: Yes Reason Cath still needed: urinary retention Assessment/Plan Hospital Course Patient complains of generalized weakness and poor appetite, will start PT, hemoglobin is stable continue to monitor plan of care discussed with patient's daughter at the bedside. Sinus rhythm on telemetry. Assessment/Plan - S/p upper gastrointestinal bleed due to bleeding duodenal ulcer. Continue Protonix and Carafate Dr. Centeno is following in GI. S/p EGD on 10/18/2018 with notion of duodenal ulcer with large amount of clots. Status post EGD on 10/22/19 with impression of duodenal ulcer with stigmata of recent bleeding, status post biopsies which are negative. - Anemia of acute blood loss, s/p blood transfusion, monitor H&H. - Acute kidney injury. Dr. Tate is following in nephrology consultation. - UTI due to E. coli. Continue Rocephin. - Cerebrovascular accident with left hemiparesis. Hold off on antiplatelet or anticoagulation due to active gastrointestinal bleed. - Hypertension. Continue IV hydralazine on p.r.n. basis. - PAF currently in sinus rhythm, no anticoagulation due to acute GI bleed. - Cardiomyopathy wit EF of 40%. Further recommendations based on clinical coarse. Plan of care discussed with Dr Cruz. Result Diagram: 10/26/18 0551 10/26/18 0551 Results 24hrs Laboratory Tests Test 10/25/18 17:07 10/25/18 20:38 10/26/18 05:51 10/26/18 07:26 Bedside Glucose 159 175 137 White Blood Count 5.8 Red Blood Count 2.98 L Hemoglobin 9.3 L Hematocrit 27.8 L Mean Corpuscular 93.3 Volume Mean Corpuscular 31.2 Hemoglobin Mean Corpuscular 33.5 Hemoglobin Concent Red Cell 14.3 Distribution Width Platelet Count 220 # Mean Platelet Volume 10.5 H Immature 0.900 H Granulocytes % Neutrophils % 68.1 Lymphocytes % 18.6 Monocytes % 6.6 Eosinophils % 5.5 Basophils % 0.3 Nucleated Red Blood 0.0 Cells % Immature 0.050 H Granulocytes # Neutrophils # 4.0 Lymphocytes # 1.1 Monocytes # 0.4 Eosinophils # 0.3 Basophils # 0.0 Nucleated Red Blood 0.0 Cells # Sodium Level 138 Potassium Level 3.7 Chloride Level 106 Carbon Dioxide Level 27 Anion Gap 5 Blood Urea Nitrogen 8 Creatinine 0.73 Est Glomerular Filtrat Rate mL/min Glucose Level 130 Calcium Level 8.2 L Test 10/26/18 11:29 Bedside Glucose 193 Exam/Review of Systems Exam Vitals Vital Signs Date Temp Pulse Resp B/P (MAP) Pulse Ox O2 O2 Flow FiO2 Time Delivery Rate 10/26/18 71 12:33 10/26/18 98.8 20 163/72 98 11:56 (102) 10/22/18 Room Air 18:00 10/22/18 2 13:00 Intake and Output 10/25/18 10/25/18 10/26/18 1515:00 23:00 07:00 IntakeIntake Total 1000 ml 450 ml OutputOutput Total 1000 ml 1700 ml BalanceBalance 0 ml -1250 ml Exam Constitutional: alert, oriented Respiratory: clear to auscultation Cardiovascular: regular rate and rhythm Gastrointestinal: soft, tender Extremities: normal pulses, edema. Results Results 24hrs Laboratory Tests Test 10/25/18 17:07 10/25/18 20:38 10/26/18 05:51 10/26/18 07:26 Bedside Glucose 159 175 137 White Blood Count 5.8 Red Blood Count 2.98 L Hemoglobin 9.3 L Hematocrit 27.8 L Mean Corpuscular 93.3 Volume Mean Corpuscular 31.2 Hemoglobin Mean Corpuscular 33.5 Hemoglobin Concent Red Cell 14.3 Distribution Width Platelet Count 220 # Mean Platelet Volume 10.5 H Immature 0.900 H Granulocytes % Neutrophils % 68.1 Lymphocytes % 18.6 Monocytes % 6.6 Eosinophils % 5.5 Basophils % 0.3 Nucleated Red Blood 0.0 Cells % Immature 0.050 H Granulocytes # Neutrophils # 4.0 Lymphocytes # 1.1 Monocytes # 0.4 Eosinophils # 0.3 Basophils # 0.0 Nucleated Red Blood 0.0 Cells # Sodium Level 138 Potassium Level 3.7 Chloride Level 106 Carbon Dioxide Level 27 Anion Gap 5 Blood Urea Nitrogen 8 Creatinine 0.73 Est Glomerular Filtrat Rate mL/min Glucose Level 130 Calcium Level 8.2 L Test 10/26/18 11:29 Bedside Glucose 193 Medications Medication Current Medications Ondansetron HCl (Zofran Inj) 4 mg Q4H PRN IV NAUSEA AND/OR VOMITING Last administered on 10/19/18 21:53; Admin Dose 4 MG; Start 10/18/18 at 08:30 Hydralazine HCl (Apresoline) 20 mg Q6H PRN IV sbp>160,dbp>95 Last administered on 10/24/18 20:35; Admin Dose 20 MG; Start 10/18/18 at 08:30 Insulin Aspart (Novolog Insulin Pen) NOVOLOG *MILD* ALGORITHM WITH MEALS BEDTI ME SC Last administered on 10/26/18 11:38; Admin Dose 2 UNIT; Start 10/18/18 at 11:30 Atorvastatin Calcium (Lipitor) 40 mg HS PO Last administered on 10/25/18 20:39; Admin Dose 40 MG; Start 10/18/18 at 21:00 Morphine Sulfate (morphine) 2 mg Q4H PRN IV SEVERE PAIN LEVEL 7-10; Start 10/18/18 at 21:00 Miscellaneous Information 1 ea NOTE XX ; Start 10/19/18 at 08:30 Glucose (Glutose) 15 gm Q15M PRN PO DECREASED GLUCOSE; Start 10/19/18 at 08:30 Glucose (Glutose) 22.5 gm Q15M PRN PO DECREASED GLUCOSE; Start 10/19/18 at 08:30 Dextrose (D50w Syringe) 25 ml Q15M PRN IV DECREASED GLUCOSE; Start 10/19/18 at 08:30 Dextrose (D50w Syringe) 50 ml Q15M PRN IV DECREASED GLUCOSE; Start 10/19/18 at 08:30 Glucagon (Glucagen) 1 mg Q15M PRN IM DECREASED GLUCOSE; Start 10/19/18 at 08:30 Glucose (Glutose) 15 gm Q15M PRN BUCCAL DECREASED GLUCOSE; Start 10/19/18 at 08:30 Amiodarone HCl (Cordarone) 200 mg BID PO Last administered on 10/26/18 08:41; Admin Dose 200 MG; Start 10/19/18 at 12:30 Carvedilol (Coreg) 6.25 mg BID PO Last administered on 10/26/18 08:41; Admin Dose 6.25 MG; Start 10/20/18 at 21:00 Levetiracetam 100 ml @ 400 mls/hr Q12 IVPB Last administered on 10/26/18 08:45; Admin Dose 400 MLS/HR; Start 10/20/18 at 21:00 Brimonidine Tartrate (Alphagan P 0.15%) 1 drop BID BOTH EYES Last administered on 10/26/18 08:46; Admin Dose 1 DROP; Start 10/20/18 at 21:00 Eye Lubricant (Artificial Tears Oph) 1 drop QID BOTH EYES Last administered on 10/26/18 12:26; Admin Dose 1 DROP; Start 10/20/18 at 18:30 Fluticasone Propionate (Flonase 0.05% Nasal) 1 spray BID NASAL Last administe red on 10/26/18 08:46; Admin Dose 1 SPRAY; Start 10/21/18 at 09:00 Sodium Chloride 1,000 ml @ 50 mls/hr Q20H IV Last administered on 10/26/18 04:37; Admin Dose 50 MLS/HR; Start 10/21/18 at 09:00 Sucralfate (Carafate Susp) 1 gm QID PO Last administered on 10/26/18 12:26; Admin Dose 1 GM; Start 10/21/18 at 19:00 IV Flush (NS 10 ml) 10 ml PRN PRN IV IV PROTOCOL; Start 10/22/18 at 12:00 Pantoprazole (Protonix Tab) 40 mg BID@0800,1600 PO Last administered on 10/26/18 15:43; Admin Dose 40 MG; Start 10/23/18 at 16:00 Lisinopril (Zestril) 5 mg DAILY PO Last administered on 10/26/18 12:26; Admin Dose 5 MG; Start 10/26/18 at 12:30 JANET FOOTE Oct 26, 2018 15:57
[2018-10-26] MEDS ORDERED: AMLODIPINE 10 MG TAB PO ONE (20:30)
[2018-10-26] MEDS ORDERED: LOSARTAN 50 MG TAB PO ONE (20:30)
[2018-10-26] MEDS ORDERED: DIAZEPAM 5 MG/ML SYG IV PRN (21:00)
[2018-10-26] MEDS ORDERED: MIDAZOLAM 1 MG/ML 2 ML INJ IV ONE (21:00)
[2018-10-26] MEDS ORDERED: CALCIUM/VITAMIN D (500/200) TAB PO SCH (21:00)
[2018-10-26] MEDS ORDERED: DIAZEPAM 5 MG/ML SYG IV ONE (21:00)
[2018-10-26] MEDS ORDERED: IOHEXOL 100 ML ONE (21:06)
[2018-10-26] MEDS ORDERED: SOD CHLORIDE 0.9% 100 ML ONE (21:06)
[2018-10-26] MEDS ORDERED: LEVETIRACETAM 1000 MG (PMX) 100 ML IVPB ONE (21:30)
[2018-10-26] MEDS ORDERED: CALCIUM GLUCONATE 10% 1 GM in DEXTROSE 5% 100 ML IVPB ONE (22:00)
[2018-10-26] MEDS: ATORVASTATIN 40 MG TAB PO SCH (22:42)
[2018-10-27] VITALS (21 sets, daily range): BP systolic 129–177; BP diastolic 57–100; PULSE 61–77; RESP 14–25
[2018-10-27] MEDS: INSULIN ASPART [NOVOLOG] 3 ML PEN SC SCH ×4 (07:35→21:00)
[2018-10-27] MEDS: FLUTICASONE 0.05% 16 GM NAS SPRAY NASAL SCH ×2 (08:02→22:14)
[2018-10-27] MEDS: BRIMONIDINE 0.15% 5 ML OPH BOTH EYES SCH ×2 (08:02→22:14)
[2018-10-27] MEDS: ARTIFICIAL TEARS 15 ML OPH BOTH EYES SCH ×4 (08:02→22:14)
[2018-10-27] MEDS: SUCRALFATE (100 MG/ML) 10ML CUP PO SCH ×4 (09:02→21:04)
[2018-10-27] MEDS: PANTOPRAZOLE (EC) 40 MG TAB PO SCH ×2 (09:03→18:30)
[2018-10-27] MEDS: AMIODARONE 200 MG TAB PO SCH ×2 (09:03→21:05)
[2018-10-27] MEDS: LISINOPRIL 5 MG TAB PO SCH (09:04)
[2018-10-27] MEDS: LOSARTAN 50 MG TAB PO SCH ×2 (09:59→21:06)
[2018-10-27] MEDS: AMLODIPINE 10 MG TAB PO SCH (10:00)
--- NOTE | 2018-10-27 12:23 | PN ---
Date/Time of Note Date/Time of Note DATE: 10/27/18 TIME: 12:18 Assessment/Plan VTE Prophylaxis Risk score (from Ns)>0 risk: 7 SCD applied (from Ns): Yes Pharmacological prophylaxis: NA/contraindicated Pharm contraindication: bleeding Lines/Catheters IV Catheter Type (from Nrsg): PICC Line Central line still needed: Yes Urinary Cath still in place: No Assessment/Plan Hospital Course Patient developed left side upward gaze and neck turning last night, worrisome for acute stroke or break through seizure and was transferred to ICU for IV Versed. Patient underwent MRI which was negative for acute stroke. Patient is undergoing EEG now. Patient is awake alert and oriented answer questions appropriately. Dr Rodriguez is following in neurology consultation. Assessment/Plan - Possible breakthrough seizure, continue Keppra and Versed as needed. - S/p upper gastrointestinal bleed due to bleeding duodenal ulcer. Continue Protonix and Carafate Dr. Centeno is following in GI. S/p EGD on 10/18/2018 with notion of duodenal ulcer with large amount of clots. Status post EGD on 10/21/2018 with impression of duodenal ulcer with stigmata of recent bleeding, status post biopsies which are negative. - Anemia of acute blood loss, s/p blood transfusion, monitor H&H. - Acute kidney injury. Dr. Tate is following in nephrology consultation. - UTI due to E. coli. S/p treatment with Rocephin. - Cerebrovascular accident with left hemiparesis. Hold off on antiplatelet or anticoagulation due to active gastrointestinal bleed. - Hypertension. Continue IV hydralazine on p.r.n. basis. - PAF currently in sinus rhythm, no anticoagulation due to acute GI bleed. - Cardiomyopathy wit EF of 40%. Further recommendations based on clinical coarse. Plan of care discussed with Dr Cruz. Result Diagram: 10/27/18 0510 10/27/18 0510 Results 24hrs Laboratory Tests Test 10/26/18 17:11 10/26/18 21:58 10/26/18 22:26 10/27/18 05:10 Bedside Glucose 165 140 White Blood Count 7.6 # 7.8 Red Blood Count 3.36 L 3.27 L Hemoglobin 10.4 L 10.1 L Hematocrit 31.1 L 30.9 L Mean Corpuscular 92.6 94.5 Volume Mean Corpuscular 31.0 30.9 Hemoglobin Mean Corpuscular 33.4 32.7 Hemoglobin Concent Red Cell 14.3 14.4 Distribution Width Platelet Count 303 # 288 Mean Platelet Volume 10.2 10.3 Immature 0.700 H 0.500 H Granulocytes % Neutrophils % 78.0 H 77.1 H Lymphocytes % 12.6 L 12.8 L Monocytes % 5.2 6.7 Eosinophils % 3.0 2.5 Basophils % 0.5 0.4 Nucleated Red Blood 0.0 0.0 Cells % Immature 0.050 H 0.040 H Granulocytes # Neutrophils # 6.0 6.0 Lymphocytes # 1.0 1.0 Monocytes # 0.4 0.5 Eosinophils # 0.2 0.2 Basophils # 0.0 0.0 Nucleated Red Blood 0.0 0.0 Cells # Sodium Level 138 140 Potassium Level 4.0 4.0 Chloride Level 102 102 Carbon Dioxide Level 27 27 Anion Gap 9 11 Blood Urea Nitrogen 11 9 Creatinine 0.83 0.73 Est Glomerular Filtrat Rate mL/min Glucose Level 141 134 Calcium Level 8.5 8.8 Total Bilirubin 0.5 Direct Bilirubin 0.00 Indirect Bilirubin 0.5 Aspartate Amino 23 Transf (AST/SGOT) Alanine 33 Aminotransferase (AL T/SGPT) Alkaline Phosphatase 60 Total Protein 5.7 L Albumin 3.1 L Globulin 2.60 Albumin/Globulin 1.19 Ratio Magnesium Level 1.7 Test 10/27/18 08:00 Bedside Glucose 129 Exam/Review of Systems Exam Vitals Vital Signs Date Temp Pulse Resp B/P (MAP) Pulse Ox O2 O2 Flow FiO2 Time Delivery Rate 10/27/18 62 14 132/62 95 Room Air 11:00 (85) 10/27/18 98.6 08:13 Intake and Output 10/26/18 10/26/18 10/27/18 1515:00 23:00 07:00 IntakeIntake Total 100 ml 2400 ml 460 ml OutputOutput Total 2500 ml 710 ml BalanceBalance 100 ml -100 ml -250 ml Exam Constitutional: alert, oriented Respiratory: clear to auscultation Cardiovascular: regular rate and rhythm Gastrointestinal: soft, tender Extremities: normal pulses, edema. Results Results 24hrs Laboratory Tests Test 10/26/18 17:11 10/26/18 21:58 10/26/18 22:26 10/27/18 05:10 Bedside Glucose 165 140 White Blood Count 7.6 # 7.8 Red Blood Count 3.36 L 3.27 L Hemoglobin 10.4 L 10.1 L Hematocrit 31.1 L 30.9 L Mean Corpuscular 92.6 94.5 Volume Mean Corpuscular 31.0 30.9 Hemoglobin Mean Corpuscular 33.4 32.7 Hemoglobin Concent Red Cell 14.3 14.4 Distribution Width Platelet Count 303 # 288 Mean Platelet Volume 10.2 10.3 Immature 0.700 H 0.500 H Granulocytes % Neutrophils % 78.0 H 77.1 H Lymphocytes % 12.6 L 12.8 L Monocytes % 5.2 6.7 Eosinophils % 3.0 2.5 Basophils % 0.5 0.4 Nucleated Red Blood 0.0 0.0 Cells % Immature 0.050 H 0.040 H Granulocytes # Neutrophils # 6.0 6.0 Lymphocytes # 1.0 1.0 Monocytes # 0.4 0.5 Eosinophils # 0.2 0.2 Basophils # 0.0 0.0 Nucleated Red Blood 0.0 0.0 Cells # Sodium Level 138 140 Potassium Level 4.0 4.0 Chloride Level 102 102 Carbon Dioxide Level 27 27 Anion Gap 9 11 Blood Urea Nitrogen 11 9 Creatinine 0.83 0.73 Est Glomerular Filtrat Rate mL/min Glucose Level 141 134 Calcium Level 8.5 8.8 Total Bilirubin 0.5 Direct Bilirubin 0.00 Indirect Bilirubin 0.5 Aspartate Amino 23 Transf (AST/SGOT) Alanine 33 Aminotransferase (AL T/SGPT) Alkaline Phosphatase 60 Total Protein 5.7 L Albumin 3.1 L Globulin 2.60 Albumin/Globulin 1.19 Ratio Magnesium Level 1.7 Test 10/27/18 08:00 Bedside Glucose 129 Medications Medication Current Medications Ondansetron HCl (Zofran Inj) 4 mg Q4H PRN IV NAUSEA AND/OR VOMITING Last administered on 10/19/18at 21:53; Admin Dose 4 MG; Start 10/18/18 at 08:30 Hydralazine HCl (Apresoline) 20 mg Q6H PRN IV sbp>160,dbp>95 Last administered on 10/24/18at 20:35; Admin Dose 20 MG; Start 10/18/18 at 08:30 Insulin Aspart (Novolog Insulin Pen) NOVOLOG *MILD* ALGORITHM WITH MEALS BEDTIM E SC Last administered on 10/26/18 17:23; Admin Dose 1 UNIT; Start 10/18/18 at 11:30 Atorvastatin Calcium (Lipitor) 40 mg HS PO Last administered on 10/26/18 22:42; Admin Dose 40 MG; Start 10/18/18 at 21:00 Morphine Sulfate (morphine) 2 mg Q4H PRN IV SEVERE PAIN LEVEL 7-10; Start 10/18/18 at 21:00 Miscellaneous Information 1 ea NOTE XX ; Start 10/19/18 at 08:30 Glucose (Glutose) 15 gm Q15M PRN PO DECREASED GLUCOSE; Start 10/19/18 at 08:30 Glucose (Glutose) 22.5 gm Q15M PRN PO DECREASED GLUCOSE; Start 10/19/18 at 08:30 Dextrose (D50w Syringe) 25 ml Q15M PRN IV DECREASED GLUCOSE; Start 10/19/18 at 08:30 Dextrose (D50w Syringe) 50 ml Q15M PRN IV DECREASED GLUCOSE; Start 10/19/18 at 08:30 Glucagon (Glucagen) 1 mg Q15M PRN IM DECREASED GLUCOSE; Start 10/19/18 at 08:30 Glucose (Glutose) 15 gm Q15M PRN BUCCAL DECREASED GLUCOSE; Start 10/19/18 at 08:30 Amiodarone HCl (Cordarone) 200 mg BID PO Last administered on 10/27/18 09:03; Admin Dose 200 MG; Start 10/19/18 at 12:30 Carvedilol (Coreg) 6.25 mg BID PO Last administered on 10/27/18 09:03; Admin Dose 6.25 MG; Start 10/20/18 at 21:00 Brimonidine Tartrate (Alphagan P 0.15%) 1 drop BID BOTH EYES Last administered on 10/27/18 08:02; Admin Dose 1 DROP; Start 10/20/18 at 21:00 Eye Lubricant (Artificial Tears Oph) 1 drop QID BOTH EYES Last administered on 10/27/18 08:02; Admin Dose 1 DROP; Start 10/20/18 at 18:30 Fluticasone Propionate (Flonase 0.05% Nasal) 1 spray BID NASAL Last administered on 10/27/18 08:02; Admin Dose 1 SPRAY; Start 10/21/18 at 09:00 Sodium Chloride 1,000 ml @ 50 mls/hr Q20H IV Last administered on 10/26/18 21:51; Admin Dose 50 MLS/HR; Start 10/21/18 at 09:00 Sucralfate (Carafate Susp) 1 gm QID PO Last administered on 10/27/18 09:02; Admin Dose 1 GM; Start 10/21/18 at 19:00 IV Flush (NS 10 ml) 10 ml PRN PRN IV IV PROTOCOL; Start 10/22/18 at 12:00 Pantoprazole (Protonix Tab) 40 mg BID@0800,1600 PO Last administered on 10/27/18 09:03; Admin Dose 40 MG; Start 10/23/18 at 16:00 Lisinopril (Zestril) 5 mg DAILY PO Last administered on 10/27/18at 09:04; Admin Dose 5 MG; Start 10/26/18 at 12:30 Losartan Potassium (Cozaar) 50 mg BID PO Last administered on 10/27/18 09:59; Admin Dose 50 MG; Start 10/27/18 at 09:00 Amlodipine Besylate (Norvasc) 10 mg DAILY PO Last administered on 10/27/18 10:00; Admin Dose 10 MG; Start 10/27/18 at 09:00 Levetiracetam 750 mg/Dextrose 107.5 ml @ 430 mls/hr Q12 IVPB ; Start 10/27/18 at 09:00 Diazepam (Valium) 5 mg Q4 PRN IV SEIZURES; Start 10/26/18 at 21:00 JANET FOOTE Oct 27, 2018 12:23
--- NOTE | 2018-10-27 12:39 | CONS ---
Assessment/Plan Assessment/Plan Assessment/Plan (Daily) 1. acute hyperkalemia 2. acute Prerenal azotemia from Upper GI bleeding 3. acute Upper GI bleeding 4. History of CVA 5. Left vertebral artery stenosis 6. H/o Hypertension 7. H/o Diabetes 8. H/o History of cardiomyopathy, current echocardiogram with ejection fraction 55% 9. H/o Paroxysmal atrial fibrillation 10. Hypernatremia Plan: s/p GI work up and EGD for upper GI bleeding, Hb 9.1 today, BUN/Cr 8//0.73 Na improved to normal today , continue IVF 1/2 NS at 50 cc/hr- plan is to d/c IVF tomorrow AM Amlodipine 10mg po daily for HTN IV keprra 750mg BID will follow up Consultation Date/Type/Reason Admit Date/Time Oct 18, 2018 at 07:52 Initial Consult Date 10/21/18 Type of Consult NEPHROLOGY Requesting Provider: MAGDI EDWARDS MD Date/Time of Note DATE: 10/27/18 TIME: 12:39 Exam/Review of Systems Exam Vitals Vital Signs Date Temp Pulse Resp B/P (MAP) Pulse Ox O2 O2 Flow FiO2 Time Delivery Rate 10/27/18 62 14 132/62 95 Room Air 11:00 (85) 10/27/18 98.6 08:13 Intake and Output 10/26/18 10/26/18 10/27/18 1515:00 23:00 07:00 IntakeIntake Total 100 ml 2400 ml 460 ml OutputOutput Total 2500 ml 710 ml BalanceBalance 100 ml -100 ml -250 ml Results Result Diagram: 10/27/18 0510 10/27/18 0510 Results 24hrs Laboratory Tests Test 10/26/18 17:11 10/26/18 21:58 10/26/18 22:26 10/27/18 05:10 Bedside Glucose 165 140 White Blood Count 7.6 # 7.8 Red Blood Count 3.36 L 3.27 L Hemoglobin 10.4 L 10.1 L Hematocrit 31.1 L 30.9 L Mean Corpuscular 92.6 94.5 Volume Mean Corpuscular 31.0 30.9 Hemoglobin Mean Corpuscular 33.4 32.7 Hemoglobin Concent Red Cell 14.3 14.4 Distribution Width Platelet Count 303 # 288 Mean Platelet Volume 10.2 10.3 Immature 0.700 H 0.500 H Granulocytes % Neutrophils % 78.0 H 77.1 H Lymphocytes % 12.6 L 12.8 L Monocytes % 5.2 6.7 Eosinophils % 3.0 2.5 Basophils % 0.5 0.4 Nucleated Red Blood 0.0 0.0 Cells % Immature 0.050 H 0.040 H Granulocytes # Neutrophils # 6.0 6.0 Lymphocytes # 1.0 1.0 Monocytes # 0.4 0.5 Eosinophils # 0.2 0.2 Basophils # 0.0 0.0 Nucleated Red Blood 0.0 0.0 Cells # Sodium Level 138 140 Potassium Level 4.0 4.0 Chloride Level 102 102 Carbon Dioxide Level 27 27 Anion Gap 9 11 Blood Urea Nitrogen 11 9 Creatinine 0.83 0.73 Est Glomerular Filtrat Rate mL/min Glucose Level 141 134 Calcium Level 8.5 8.8 Total Bilirubin 0.5 Direct Bilirubin 0.00 Indirect Bilirubin 0.5 Aspartate Amino 23 Transf (AST/SGOT) Alanine 33 Aminotransferase (AL T/SGPT) Alkaline Phosphatase 60 Total Protein 5.7 L Albumin 3.1 L Globulin 2.60 Albumin/Globulin 1.19 Ratio Magnesium Level 1.7 Test 10/27/18 08:00 Bedside Glucose 129 Medications Medication Current Medications Ondansetron HCl (Zofran Inj) 4 mg Q4H PRN IV NAUSEA AND/OR VOMITING Last administered on 10/19/18at 21:53; Admin Dose 4 MG; Start 10/18/18 at 08:30 Hydralazine HCl (Apresoline) 20 mg Q6H PRN IV sbp>160,dbp>95 Last administered on 10/24/18at 20:35; Admin Dose 20 MG; Start 10/18/18 at 08:30 Insulin Aspart (Novolog Insulin Pen) NOVOLOG *MILD* ALGORITHM WITH MEALS BEDTIME SC Last administered on 10/26/18at 17:23; Admin Dose 1 UNIT; Start 10/18/18 at 11:30 Atorvastatin Calcium (Lipitor) 40 mg HS PO Last administered on 10/26/18at 22:42; Admin Dose 40 MG; Start 10/18/18 at 21:00 Morphine Sulfate (morphine) 2 mg Q4H PRN IV SEVERE PAIN LEVEL 7-10; Start 10/18/18 at 21:00 Miscellaneous Information 1 ea NOTE XX ; Start 10/19/18 at 08:30 Glucose (Glutose) 15 gm Q15M PRN PO DECREASED GLUCOSE; Start 10/19/18 at 08:30 Glucose (Glutose) 22.5 gm Q15M PRN PO DECREASED GLUCOSE; Start 10/19/18 at 08:30 Dextrose (D50w Syringe) 25 ml Q15M PRN IV DECREASED GLUCOSE; Start 10/19/18 at 08:30 Dextrose (D50w Syringe) 50 ml Q15M PRN IV DECREASED GLUCOSE; Start 10/19/18 at 08:30 Glucagon (Glucagen) 1 mg Q15M PRN IM DECREASED GLUCOSE; Start 10/19/18 at 08:30 Glucose (Glutose) 15 gm Q15M PRN BUCCAL DECREASED GLUCOSE; Start 10/19/18 at 08:30 Amiodarone HCl (Cordarone) 200 mg BID PO Last administered on 10/27/18 09:03; Admin Dose 200 MG; Start 10/19/18 at 12:30 Carvedilol (Coreg) 6.25 mg BID PO Last administered on 10/27/18 09:03; Admin Dose 6.25 MG; Start 10/20/18 at 21:00 Brimonidine Tartrate (Alphagan P 0.15%) 1 drop BID BOTH EYES Last administered on 10/27/18 08:02; Admin Dose 1 DROP; Start 10/20/18 at 21:00 Eye Lubricant (Artificial Tears Oph) 1 drop QID BOTH EYES Last administered on 10/27/18 08:02; Admin Dose 1 DROP; Start 10/20/18 at 18:30 Fluticasone Propionate (Flonase 0.05% Nasal) 1 spray BID NASAL Last administered on 10/27/18 08:02; Admin Dose 1 SPRAY; Start 10/21/18 at 09:00 Sodium Chloride 1,000 ml @ 50 mls/hr Q20H IV Last administered on 10/26/18 21:51; Admin Dose 50 MLS/HR; Start 10/21/18 at 09:00 Sucralfate (Carafate Susp) 1 gm QID PO Last administered on 10/27/18 09:02; Admin Dose 1 GM; Start 10/21/18 at 19:00 IV Flush (NS 10 ml) 10 ml PRN PRN IV IV PROTOCOL; Start 10/22/18 at 12:00 Pantoprazole (Protonix Tab) 40 mg BID@0800,1600 PO Last administered on 10/27/18at 09:03; Admin Dose 40 MG; Start 10/23/18 at 16:00 Lisinopril (Zestril) 5 mg DAILY PO Last administered on 10/27/18at 09:04; Admin Dose 5 MG; Start 10/26/18 at 12:30 Losartan Potassium (Cozaar) 50 mg BID PO Last administered on 10/27/18at 09:59; Admin Dose 50 MG; Start 10/27/18 at 09:00 Amlodipine Besylate (Norvasc) 10 mg DAILY PO Last administered on 10/27/18at 10:00; Admin Dose 10 MG; Start 10/27/18 at 09:00 Levetiracetam 750 mg/Dextrose 107.5 ml @ 430 mls/hr Q12 IVPB ; Start 10/27/18 at 09:00 Diazepam (Valium) 5 mg Q4 PRN IV SEIZURES; Start 10/26/18 at 21:00 RICK ESCAMILLA MD Oct 27, 2018 12:39
[2018-10-27] MEDS: LEVETIRACETAM IV 750 MG in DEXTROSE 5% 100 ML IVPB SCH ×2 (14:51→21:06)
[2018-10-27] MEDS ORDERED: MAGNESIUM SULFATE 2 GM/50 ML 50 ML IVPB ONE (15:00)
[2018-10-27] MEDS ORDERED: LIDOCAINE 1% (MPF) 5 ML VIAL ONE (15:50)
--- NOTE | 2018-10-27 16:20 | CONS ---
Assessment/Plan Assessment/Plan Hospital Course (Demo Recall) Upper GI bleed History of CVA Left vertebral artery stenosis Hypertension Cerebral artery disease Diabetes History of cardiomyopathy, current echocardiogram with ejection fraction 55% Paroxysmal atrial fibrillation -Patient transferred to ICU given possible seizure versus CVA. MRI brain neg ative for acute CVA. -Patient with upper GI bleed and thought secondary to NSAID use and Plavix. Edilson gray was on Plavix because of known cerebrovascular disease and history of CVA on previous admissions. On hold at the current time -Patient with paroxysmal atrial fibrillation noted on telemetry and currently sinus rhythm. Given recent GI bleed, cannot tolerate anticoagulation. Continue beta-katherine and amiodarone as tolerated. -Blood pressure trend improved Consultation Date/Type/Reason Admit Date/Time Oct 18, 2018 at 07:52 Initial Consult Date 10/18/18 Type of Consult Cardiology Requesting Provider: MAGDI EDWARDS MD Date/Time of Note DATE: 10/27/18 TIME: 16:18 24 HR Interval Summary Free Text/Dictation Patient transferred to ICU for further evaluation given possible seizure versus CVA. Denies shortness of breath Exam/Review of Systems Vital Signs Vitals Vital Signs Date Temp Pulse Resp B/P (MAP) Pulse Ox O2 O2 Flow FiO2 Time Delivery Rate 10/27/18 63 22 157/66 95 Room Air 13:00 (96) 10/27/18 99.2 12:00 Intake and Output 10/26/18 10/26/18 10/27/18 1515:00 23:00 07:00 IntakeIntake Total 100 ml 2400 ml 460 ml OutputOutput Total 2500 ml 710 ml BalanceBalance 100 ml -100 ml -250 ml Exam Constitutional: alert (Following some commands, no apparent distress) Head: normocephalic Respiratory: other (Coarse breath sounds bilaterally, no wheezing) Cardiovascular: regular rate and rhythm (S1-S2 heard) Gastrointestinal: soft, non-tender, bowel sounds Extremities: edema Labs Result Diagram: 10/27/18 0510 10/27/18 0510 Results 24hrs Laboratory Tests Test 10/26/18 17:11 10/26/18 21:58 10/26/18 22:26 10/27/18 05:10 Bedside Glucose 165 140 White Blood Count 7.6 # 7.8 Red Blood Count 3.36 L 3.27 L Hemoglobin 10.4 L 10.1 L Hematocrit 31.1 L 30.9 L Mean Corpuscular 92.6 94.5 Volume Mean Corpuscular 31.0 30.9 Hemoglobin Mean Corpuscular 33.4 32.7 Hemoglobin Concent Red Cell 14.3 14.4 Distribution Width Platelet Count 303 # 288 Mean Platelet Volume 10.2 10.3 Immature 0.700 H 0.500 H Granulocytes % Neutrophils % 78.0 H 77.1 H Lymphocytes % 12.6 L 12.8 L Monocytes % 5.2 6.7 Eosinophils % 3.0 2.5 Basophils % 0.5 0.4 Nucleated Red Blood 0.0 0.0 Cells % Immature 0.050 H 0.040 H Granulocytes # Neutrophils # 6.0 6.0 Lymphocytes # 1.0 1.0 Monocytes # 0.4 0.5 Eosinophils # 0.2 0.2 Basophils # 0.0 0.0 Nucleated Red Blood 0.0 0.0 Cells # Sodium Level 138 140 Potassium Level 4.0 4.0 Chloride Level 102 102 Carbon Dioxide Level 27 27 Anion Gap 9 11 Blood Urea Nitrogen 11 9 Creatinine 0.83 0.73 Est Glomerular Filtrat Rate mL/min Glucose Level 141 134 Calcium Level 8.5 8.8 Total Bilirubin 0.5 Direct Bilirubin 0.00 Indirect Bilirubin 0.5 Aspartate Amino 23 Transf (AST/SGOT) Alanine 33 Aminotransferase (AL T/SGPT) Alkaline Phosphatase 60 Total Protein 5.7 L Albumin 3.1 L Globulin 2.60 Albumin/Globulin 1.19 Ratio Magnesium Level 1.7 Test 10/27/18 08:00 10/27/18 13:01 Bedside Glucose 129 134 Medications Medications Current Medications Ondansetron HCl (Zofran Inj) 4 mg Q4H PRN IV NAUSEA AND/OR VOMITING Last administered on 10/19/18 21:53; Admin Dose 4 MG; Start 10/18/18 at 08:30 Hydralazine HCl (Apresoline) 20 mg Q6H PRN IV sbp>160,dbp>95 Last administered on 10/24/18at 20:35; Admin Dose 20 MG; Start 10/18/18 at 08:30 Insulin Aspart (Novolog Insulin Pen) NOVOLOG *MILD* ALGORITHM WITH MEALS BEDTIME SC Last administered on 10/26/18at 17:23; Admin Dose 1 UNIT; Start 10/18/18 at 11:30 Atorvastatin Calcium (Lipitor) 40 mg HS PO Last administered on 10/26/18 22:42; Admin Dose 40 MG; Start 10/18/18 at 21:00 Morphine Sulfate (morphine) 2 mg Q4H PRN IV SEVERE PAIN LEVEL 7-10; Start 10/18/18 at 21:00 Miscellaneous Information 1 ea NOTE XX ; Start 10/19/18 at 08:30 Glucose (Glutose) 15 gm Q15M PRN PO DECREASED GLUCOSE; Start 10/19/18 at 08:30 Glucose (Glutose) 22.5 gm Q15M PRN PO DECREASED GLUCOSE; Start 10/19/18 at 08:30 Dextrose (D50w Syringe) 25 ml Q15M PRN IV DECREASED GLUCOSE; Start 10/19/18 at 08:30 Dextrose (D50w Syringe) 50 ml Q15M PRN IV DECREASED GLUCOSE; Start 10/19/18 at 08:30 Glucagon (Glucagen) 1 mg Q15M PRN IM DECREASED GLUCOSE; Start 10/19/18 at 08:30 Glucose (Glutose) 15 gm Q15M PRN BUCCAL DECREASED GLUCOSE; Start 10/19/18 at 08:30 Amiodarone HCl (Cordarone) 200 mg BID PO Last administered on 10/27/18 09:03; Admin Dose 200 MG; Start 10/19/18 at 12:30 Carvedilol (Coreg) 6.25 mg BID PO Last administered on 10/27/18 09:03; Admin Dose 6.25 MG; Start 10/20/18 at 21:00 Brimonidine Tartrate (Alphagan P 0.15%) 1 drop BID BOTH EYES Last administered on 10/27/18 08:02; Admin Dose 1 DROP; Start 10/20/18 at 21:00 Eye Lubricant (Artificial Tears Oph) 1 drop QID BOTH EYES Last administered on 10/27/18 15:56; Admin Dose 1 DROP; Start 10/20/18 at 18:30 Fluticasone Propionate (Flonase 0.05% Nasal) 1 spray BID NASAL Last administered on 10/27/18 08:02; Admin Dose 1 SPRAY; Start 10/21/18 at 09:00 Sodium Chloride 1,000 ml @ 50 mls/hr Q20H IV Last administered on 10/26/18 21:51; Admin Dose 50 MLS/HR; Start 10/21/18 at 09:00 Sucralfate (Carafate Susp) 1 gm QID PO Last administered on 10/27/18 15:56; Admin Dose 1 GM; Start 10/21/18 at 19:00 IV Flush (NS 10 ml) 10 ml PRN PRN IV IV PROTOCOL; Start 10/22/18 at 12:00 Pantoprazole (Protonix Tab) 40 mg BID@0800,1600 PO Last administered on 10/27/18 09:03; Admin Dose 40 MG; Start 10/23/18 at 16:00 Lisinopril (Zestril) 5 mg DAILY PO Last administered on 10/27/18 09:04; Admin Dose 5 MG; Start 10/26/18 at 12:30 Losartan Potassium (Cozaar) 50 mg BID PO Last administered on 10/27/18 09:59; Admin Dose 50 MG; Start 10/27/18 at 09:00 Amlodipine Besylate (Norvasc) 10 mg DAILY PO Last administered on 10/27/18 10:00; Admin Dose 10 MG; Start 10/27/18 at 09:00 Levetiracetam 750 mg/Dextrose 107.5 ml @ 430 mls/hr Q12 IVPB Last administered on 10/27/18 14:51; Admin Dose 430 MLS/HR; Start 10/27/18 at 09:00 Diazepam (Valium) 5 mg Q4 PRN IV SEIZURES; Start 10/26/18 at 21:00 Magnesium Sulfate 50 ml @ 25 mls/hr ONCE ONCE IVPB Last administered on 10/27/18 14:51; Admin Dose 25 MLS/HR; Start 10/27/18 at 15:00; Stop 10/27/18 at 16:59 Omega Chinchilla DO Oct 27, 2018 16:20
[2018-10-27] MEDS: ATORVASTATIN 40 MG TAB PO SCH (21:05)
[2018-10-28] VITALS (10 sets, daily range): BP systolic 123–168; BP diastolic 60–75; PULSE 3–69; RESP 18–20
[2018-10-28] MEDS: SOD CHLORIDE 0.45% 1,000 ML IV SCH (02:09)
--- NOTE | 2018-10-28 06:25 | HKNOTE ---
DATE OF SERVICE: REFERRING PHYSICIAN: Dr. Cruz Thank you for asking me to see the patient with you. HISTORY OF PRESENT ILLNESS: The patient is a 78-year-old lady with a past medical history of left he miplegia, right middle cerebral artery stroke in which I get a call about him last night for seizure activity, in which the patient turned her head to the left side for a few seconds which happened a fe w times. [facility] 750 mg twice a day, which in the hospi miriam the patient was taking 500 twice a day, so I ordered here 1 g additional of Keppra and increased the dose to 750 twice a day. I also tried Ativan, but the family said she had reaction from it befor e, so we ordered for her diazepam. The pharmacy does not carry it. So, I ordered for her Versed and I transferred to ICU. MRI was ordered as well as electroencephalogram. CURRENT MEDICATIONS: 1. Cozaar 50 mg twice a day. 2. Amlodipine 10 mg once a day. 3. Keppra 750 mg twice a day. 4. Diazepam 5 mg every 4 hours as needed for seizure. 5. Zestril 5 mg once a day. 6. Protonix 40 mg once a day. 7. Carafate 1g q.i.d. 8. Coreg 6.25 mg once a day. 9. Amlodipine 200 mg twice a day. 10. Zofran 4 mg every 4 hours. 11. Hydralazine 20 mg once a day. PHYSICAL EXAMINATION: GENERAL: Today, the patient is alert, awake, oriented, accompanied by her daughter in the room. CRANIAL NERVES: Cranial nerve II: Pupils are equal on both sides, reactive to light. Cranial nerve s III, IV, and : Extraocular muscles are intact without nystagmus. Cranial nerve V: Equal sensat ion to face. Cranial nerve VII: Decreased nasolabial fold on the left side. Cranial nerve VIII: D ecreased hearing bilaterally. Cranial nerve X: Elevates palate. Cranial nerve XI: Elevates should er 5/5. Cranial nerve XII: With straight tongue. MOTOR: Decreased on left side which is scored 1/5 and sensation decreased in the left side for light touch and temperature. COORDINATION: [id number] test intact on the right side. Left side with weakness. HEART: Regular rate and rhythm. LUNGS: Equal breath sounds. ABDOMEN: Soft, relaxed, nondistended, no tenderness. ASSESSMENT AND PLAN: 1. The patient is a 78-year-old status post seizure. We increased her Keppra to 750 mg twice a day status post 1 g of Keppra in additional to the 500 she used to take. 2. Continue the patient on Diazepam 5 mg every 4 hours as needed, only for seizure activity. 3. The patient is admitted with gastrointestinal bleeding in which the patient, under observation, t aken Protonix and Carafate, status post acute renal injury, followed up by Dr. Tate from nephrology . 4. History of stroke with left hemiplegia with right middle cerebral artery stroke. The patient is on hold of her medication because of the gastrointestinal bleed. 5. Hypertension. Keep the blood pressure at the level of 140/90. 6. The patient with cardiomyopathy with ejection fraction of 40%, which might need anticoagulant; ho wever, because of the GI, is on hold. Again, thank you Dr. Cruz, for asking me to see the patient with you. Dictated By: ZECHARIAH SMILEY MD NA/NTS Conf#: [id number] DID#: [id number] CC: MAGDI CRUZ MD;*EndCC*
[2018-10-28] MEDS: PANTOPRAZOLE (EC) 40 MG TAB PO SCH ×2 (08:06→16:07)
[2018-10-28] MEDS: SUCRALFATE (100 MG/ML) 10ML CUP PO SCH ×4 (08:06→20:54)
[2018-10-28] MEDS: LISINOPRIL 5 MG TAB PO SCH (08:07)
[2018-10-28] MEDS: LOSARTAN 50 MG TAB PO SCH ×2 (08:07→20:53)
[2018-10-28] MEDS: AMLODIPINE 10 MG TAB PO SCH (08:07)
[2018-10-28] MEDS: LEVETIRACETAM IV 750 MG in DEXTROSE 5% 100 ML IVPB SCH ×2 (08:08→21:14)
[2018-10-28] MEDS: AMIODARONE 200 MG TAB PO SCH ×2 (08:08→20:53)
[2018-10-28] MEDS: BRIMONIDINE 0.15% 5 ML OPH BOTH EYES SCH ×2 (08:09→20:51)
[2018-10-28] MEDS: FLUTICASONE 0.05% 16 GM NAS SPRAY NASAL SCH ×2 (08:10→20:50)
[2018-10-28] MEDS: ARTIFICIAL TEARS 15 ML OPH BOTH EYES SCH ×4 (08:10→20:51)
[2018-10-28] MEDS: INSULIN ASPART [NOVOLOG] 3 ML PEN SC SCH ×4 (08:59→20:54)
--- NOTE | 2018-10-28 13:07 | PN ---
Date/Time of Note Date/Time of Note DATE: 10/28/18 TIME: 12:57 Assessment/Plan VTE Prophylaxis Risk score (from Ns)>0 risk: 11 SCD applied (from Ns): Yes Pharmacological prophylaxis: NA/contraindicated Pharm contraindication: bleeding Lines/Catheters IV Catheter Type (from Nrsg): PICC Line Central line still needed: Yes Urinary Cath still in place: Yes Reason Cath still needed: urinary retention Assessment/Plan Hospital Course Patient is awake, alert, oriented, no seizure activity noted. Pt's condition and plan of care d/w pt and pt's daughters at the bedside. Assessment/Plan - Possible breakthrough seizure, continue Keppra at increased dose. MRI which was negative for acute stroke. Status post spinal tap follow-up on CSF culture. Dr Rodriguez is following in neurology consultation. - S/p upper gastrointestinal bleed due to bleeding duodenal ulcer. Continue Protonix and Carafate Dr. Centeno is following in GI. S/p EGD on 10/18/2018 with notion of duodenal ulcer with large amount of clots. Status post EGD on 10/21/2018 with impression of duodenal ulcer with stigmata of recent bleeding, status post biopsies which are negative. - Anemia of acute blood loss, s/p blood transfusion, monitor H&H. - Acute kidney injury. Dr. Tate is following in nephrology consultation. - UTI due to E. coli. S/p treatment with Rocephin. - Hx of cerebrovascular accident with left hemiparesis. Hold off on antiplatelet or anticoagulation due to active gastrointestinal bleed. - Hypertension. Continue IV hydralazine on p.r.n. basis. - PAF currently in sinus rhythm, no anticoagulation due to acute GI bleed. - Cardiomyopathy wit EF of 40%. Further recommendations based on clinical coarse. Plan of care discussed with Dr Cruz. Result Diagram: 10/28/1828 10/28/18527 Results 24hrs Laboratory Tests Test 10/27/18 13:01 10/27/18 16:46 10/27/18 18:35 10/27/18 20:15 Bedside Glucose 134 135 129 CSF Tubes Submitted 4 CSF Volume 5.0 CSF Appearance CLEAR CSF Color COLORLESS CSF WBC 3 CSF RBC 0 CSF Cell Count Tube TUBE#4 # CSF Mononuclear 66.6 Cells % (Auto) CSF Polynuclear WBCs 33.4 (%) CSF Glucose 75 CSF Total Protein 37 Test 10/28/18 05:28 10/28/18 08:15 10/28/18 11:50 White Blood Count 7.1 Red Blood Count 2.93 L Hemoglobin 9.2 L Hematocrit 27.9 L Mean Corpuscular 95.2 Volume Mean Corpuscular 31.4 Hemoglobin Mean Corpuscular 33.0 Hemoglobin Concent Red Cell 14.3 Distribution Width Platelet Count 297 Mean Platelet Volume 10.1 Immature 0.800 H Granulocytes % Neutrophils % 79.2 H Lymphocytes % 10.7 L Monocytes % 5.9 Eosinophils % 3.1 Basophils % 0.3 Nucleated Red Blood 0.0 Cells % Immature 0.060 H Granulocytes # Neutrophils # 5.6 Lymphocytes # 0.8 Monocytes # 0.4 Eosinophils # 0.2 Basophils # 0.0 Nucleated Red Blood 0.0 Cells # Sodium Level 137 Potassium Level 3.3 L Chloride Level 104 Carbon Dioxide Level 28 Anion Gap 5 Blood Urea Nitrogen 9 Creatinine 0.91 Est Glomerular Filtrat Rate mL/min Glucose Level 124 Calcium Level 8.2 L Bedside Glucose 161 149 Exam/Review of Systems Exam Vitals Vital Signs Date Temp Pulse Resp B/P (MAP) Pulse Ox O2 O2 Flow FiO2 Time Delivery Rate 10/28/18 98.8 63 20 143/66 95 11:15 (91) 10/27/18 Room Air 18:00 Intake and Output 10/27/18 10/27/18 10/28/18 1515:00 23:00 07:00 IntakeIntake Total 630 ml 157.5 ml 300 ml OutputOutput Total 715 ml 250 ml 850 ml BalanceBalance -85 ml -92.5 ml -550 ml Exam Constitutional: alert, oriented Respiratory: clear to auscultation Cardiovascular: regular rate and rhythm Gastrointestinal: soft, tender Extremities: normal pulses Results Results 24hrs Laboratory Tests Test 10/27/18 13:01 10/27/18 16:46 10/27/18 18:35 10/27/18 20:15 Bedside Glucose 134 135 129 CSF Tubes Submitted 4 CSF Volume 5.0 CSF Appearance CLEAR CSF Color COLORLESS CSF WBC 3 CSF RBC 0 CSF Cell Count Tube TUBE#4 # CSF Mononuclear 66.6 Cells % (Auto) CSF Polynuclear WBCs 33.4 (%) CSF Glucose 75 CSF Total Protein 37 Test 10/28/18 05:28 10/28/18 08:15 10/28/18 11:50 White Blood Count 7.1 Red Blood Count 2.93 L Hemoglobin 9.2 L Hematocrit 27.9 L Mean Corpuscular 95.2 Volume Mean Corpuscular 31.4 Hemoglobin Mean Corpuscular 33.0 Hemoglobin Concent Red Cell 14.3 Distribution Width Platelet Count 297 Mean Platelet Volume 10.1 Immature 0.800 H Granulocytes % Neutrophils % 79.2 H Lymphocytes % 10.7 L Monocytes % 5.9 Eosinophils % 3.1 Basophils % 0.3 Nucleated Red Blood 0.0 Cells % Immature 0.060 H Granulocytes # Neutrophils # 5.6 Lymphocytes # 0.8 Monocytes # 0.4 Eosinophils # 0.2 Basophils # 0.0 Nucleated Red Blood 0.0 Cells # Sodium Level 137 Potassium Level 3.3 L Chloride Level 104 Carbon Dioxide Level 28 Anion Gap 5 Blood Urea Nitrogen 9 Creatinine 0.91 Est Glomerular Filtrat Rate mL/min Glucose Level 124 Calcium Level 8.2 L Bedside Glucose 161 149 Medications Medication Current Medications Ondansetron HCl (Zofran Inj) 4 mg Q4H PRN IV NAUSEA AND/OR VOMITING Last administered on 10/19/18at 21:53; Admin Dose 4 MG; Start 10/18/18 at 08:30 Hydralazine HCl (Apresoline) 20 mg Q6H PRN IV sbp>160,dbp>95 Last administered on 10/24/18at 20:35; Admin Dose 20 MG; Start 10/18/18 at 08:30 Insulin Aspart (Novolog Insulin Pen) NOVOLOG *MILD* ALGORITHM WITH MEALS BEDTIME SC Last administered on 10/28/18at 12:07; Admin Dose 1 UNIT; Start 10/18/18 at 11:30 Atorvastatin Calcium (Lipitor) 40 mg HS PO Last administered on 10/27/18at 21:05; Admin Dose 40 MG; Start 10/18/18 at 21:00 Morphine Sulfate (morphine) 2 mg Q4H PRN IV SEVERE PAIN LEVEL 7-10; Start 10/18/18 at 21:00 Miscellaneous Information 1 ea NOTE XX ; Start 10/19/18 at 08:30 Glucose (Glutose) 15 gm Q15M PRN PO DECREASED GLUCOSE; Start 10/19/18 at 08:30 Glucose (Glutose) 22.5 gm Q15M PRN PO DECREASED GLUCOSE; Start 10/19/18 at 08:30 Dextrose (D50w Syringe) 25 ml Q15M PRN IV DECREASED GLUCOSE; Start 10/19/18 at 08:30 Dextrose (D50w Syringe) 50 ml Q15M PRN IV DECREASED GLUCOSE; Start 10/19/18 at 08:30 Glucagon (Glucagen) 1 mg Q15M PRN IM DECREASED GLUCOSE; Start 10/19/18 at 08:30 Glucose (Glutose) 15 gm Q15M PRN BUCCAL DECREASED GLUCOSE; Start 10/19/18 at 08:30 Amiodarone HCl (Cordarone) 200 mg BID PO Last administered on 10/28/18 08:08; Admin Dose 200 MG; Start 10/19/18 at 12:30 Carvedilol (Coreg) 6.25 mg BID PO Last administered on 10/28/18 08:07; Admin Dose 6.25 MG; Start 10/20/18 at 21:00 Brimonidine Tartrate (Alphagan P 0.15%) 1 drop BID BOTH EYES Last administered on 10/28/18 08:09; Admin Dose 1 DROP; Start 10/20/18 at 21:00 Eye Lubricant (Artificial Tears Oph) 1 drop QID BOTH EYES Last administered on 10/28/18 12:05; Admin Dose 1 DROP; Start 10/20/18 at 18:30 Fluticasone Propionate (Flonase 0.05% Nasal) 1 spray BID NASAL Last administered on 10/28/18 08:10; Admin Dose 1 SPRAY; Start 10/21/18 at 09:00 Sodium Chloride 1,000 ml @ 50 mls/hr Q20H IV Last administered on 10/28/18 02:09; Admin Dose 50 MLS/HR; Start 10/21/18 at 09:00 Sucralfate (Carafate Susp) 1 gm QID PO Last administered on 10/28/18 08:06; Admin Dose 1 GM; Start 10/21/18 at 19:00 IV Flush (NS 10 ml) 10 ml PRN PRN IV IV PROTOCOL; Start 10/22/18 at 12:00 Pantoprazole (Protonix Tab) 40 mg BID@0800,1600 PO Last administered on 10/28/18 08:06; Admin Dose 40 MG; Start 10/23/18 at 16:00 Lisinopril (Zestril) 5 mg DAILY PO Last administered on 10/28/18 08:07; Admin Dose 5 MG; Start 10/26/18 at 12:30 Losartan Potassium (Cozaar) 50 mg BID PO Last administered on 10/28/18 08:07; Admin Dose 50 MG; Start 10/27/18 at 09:00 Amlodipine Besylate (Norvasc) 10 mg DAILY PO Last administered on 10/28/18 08:07; Admin Dose 10 MG; Start 10/27/18 at 09:00 Levetiracetam 750 mg/Dextrose 107.5 ml @ 430 mls/hr Q12 IVPB Last administered on 10/28/18 08:08; Admin Dose 430 MLS/HR; Start 10/27/18 at 09:00 Diazepam (Valium) 5 mg Q4 PRN IV SEIZURES; Start 10/26/18 at 21:00 JANET FOOTE Oct 28, 2018 13:07
[2018-10-28] MEDS ORDERED: POTASSIUM CHLORIDE 20 MEQ POWDER FOR ORAL SOLN PO ONE (13:30)
--- NOTE | 2018-10-28 14:05 | CONS ---
Assessment/Plan Assessment/Plan Hospital Course (Demo Recall) Upper GI bleed History of CVA Left vertebral artery stenosis Hypertension Cerebral artery disease Diabetes History of cardiomyopathy, current echocardiogram with ejection fraction 55% Paroxysmal atrial fibrillation -Patient with upper GI bleed and thought secondary to NSAID use and Plavix. Patient was on Plavix because of known cerebrovascular disease and history of CVA on previous admissions. On hold at the current time -Patient with paroxysmal atrial fibrillation noted on telemetry and currently sinus rhythm. Given recent GI bleed, cannot tolerate anticoagulation. Continue beta-katherine, decrease amiodarone to daily -Blood pressure trend overall stable -Maintain potassium above 4.0 and magnesium above 2.0. Consultation Date/Type/Reason Admit Date/Time Oct 18, 2018 at 07:52 Initial Consult Date 10/18/18 Type of Consult Cardiology Requesting Provider: MAGDI EDWARDS MD Date/Time of Note DATE: 10/28/18 TIME: 14:03 24 HR Interval Summary Free Text/Dictation Patient seen and examined. Denies current shortness of breath, chest pain Exam/Review of Systems Vital Signs Vitals Vital Signs Date Temp Pulse Resp B/P (MAP) Pulse Ox O2 O2 Flow FiO2 Time Delivery Rate 10/28/18 62 12:00 10/28/18 98.8 20 143/66 95 11:15 (91) 10/27/18 Room Air 18:00 Intake and Output 10/27/18 10/27/18 10/28/18 1515:00 23:00 07:00 IntakeIntake Total 630 ml 157.5 ml 300 ml OutputOutput Total 715 ml 250 ml 850 ml BalanceBalance -85 ml -92.5 ml -550 ml Exam Constitutional: alert (Family bedside, no apparent distress) Head: normocephalic Respiratory: other (Coarse breath sounds bilaterally, no wheezing) Cardiovascular: regular rate and rhythm (S1-S2 heard) Gastrointestinal: soft, non-tender, bowel sounds Extremities: edema (Trace) Labs Result Diagram: 10/28/1852710/28/18527 Results 24hrs Laboratory Tests Test 10/27/18 16:46 10/27/18 18:35 10/27/18 20:15 10/28/18 05:28 CSF Tubes Submitted 4 CSF Volume 5.0 CSF Appearance CLEAR CSF Color COLORLESS CSF WBC 3 CSF RBC 0 CSF Cell Count Tube TUBE#4 # CSF Mononuclear 66.6 Cells % (Auto) CSF Polynuclear WBCs 33.4 (%) CSF Glucose 75 CSF Total Protein 37 Bedside Glucose 135 129 White Blood Count 7.1 Red Blood Count 2.93 L Hemoglobin 9.2 L Hematocrit 27.9 L Mean Corpuscular 95.2 Volume Mean Corpuscular 31.4 Hemoglobin Mean Corpuscular 33.0 Hemoglobin Concent Red Cell 14.3 Distribution Width Platelet Count 297 Mean Platelet Volume 10.1 Immature 0.800 H Granulocytes % Neutrophils % 79.2 H Lymphocytes % 10.7 L Monocytes % 5.9 Eosinophils % 3.1 Basophils % 0.3 Nucleated Red Blood 0.0 Cells % Immature 0.060 H Granulocytes # Neutrophils # 5.6 Lymphocytes # 0.8 Monocytes # 0.4 Eosinophils # 0.2 Basophils # 0.0 Nucleated Red Blood 0.0 Cells # Sodium Level 137 Potassium Level 3.3 L Chloride Level 104 Carbon Dioxide Level 28 Anion Gap 5 Blood Urea Nitrogen 9 Creatinine 0.91 Est Glomerular Filtrat Rate mL/min Glucose Level 124 Calcium Level 8.2 L Test 10/28/18 08:15 10/28/18 11:50 Bedside Glucose 161 149 Medications Medications Current Medications Ondansetron HCl (Zofran Inj) 4 mg Q4H PRN IV NAUSEA AND/OR VOMITING Last administered on 10/19/18at 21:53; Admin Dose 4 MG; Start 10/18/18 at 08:30 Hydralazine HCl (Apresoline) 20 mg Q6H PRN IV sbp>160,dbp>95 Last administered on 10/24/18at 20:35; Admin Dose 20 MG; Start 10/18/18 at 08:30 Insulin Aspart (Novolog Insulin Pen) NOVOLOG *MILD* ALGORITHM WITH MEALS BEDTIME SC Last administered on 10/28/18at 12:07; Admin Dose 1 UNIT; Start 10/18/18 at 11:30 Atorvastatin Calcium (Lipitor) 40 mg HS PO Last administered on 10/27/18at 21:05; Admin Dose 40 MG; Start 10/18/18 at 21:00 Morphine Sulfate (morphine) 2 mg Q4H PRN IV SEVERE PAIN LEVEL 7-10; Start 10/18/18 at 21:00 Miscellaneous Information 1 ea NOTE XX ; Start 10/19/18 at 08:30 Glucose (Glutose) 15 gm Q15M PRN PO DECREASED GLUCOSE; Start 10/19/18 at 08:30 Glucose (Glutose) 22.5 gm Q15M PRN PO DECREASED GLUCOSE; Start 10/19/18 at 08:30 Dextrose (D50w Syringe) 25 ml Q15M PRN IV DECREASED GLUCOSE; Start 10/19/18 at 08:30 Dextrose (D50w Syringe) 50 ml Q15M PRN IV DECREASED GLUCOSE; Start 10/19/18 at 08:30 Glucagon (Glucagen) 1 mg Q15M PRN IM DECREASED GLUCOSE; Start 10/19/18 at 08:30 Glucose (Glutose) 15 gm Q15M PRN BUCCAL DECREASED GLUCOSE; Start 10/19/18 at 08:30 Amiodarone HCl (Cordarone) 200 mg BID PO Last administered on 10/28/18 08:08; Admin Dose 200 MG; Start 10/19/18 at 12:30 Carvedilol (Coreg) 6.25 mg BID PO Last administered on 10/28/18 08:07; Admin Dose 6.25 MG; Start 10/20/18 at 21:00 Brimonidine Tartrate (Alphagan P 0.15%) 1 drop BID BOTH EYES Last administered on 10/28/18 08:09; Admin Dose 1 DROP; Start 10/20/18 at 21:00 Eye Lubricant (Artificial Tears Oph) 1 drop QID BOTH EYES Last administered on 10/28/18 12:05; Admin Dose 1 DROP; Start 10/20/18 at 18:30 Fluticasone Propionate (Flonase 0.05% Nasal) 1 spray BID NASAL Last administered on 10/28/18 08:10; Admin Dose 1 SPRAY; Start 10/21/18 at 09:00 Sodium Chloride 1,000 ml @ 50 mls/hr Q20H IV Last administered on 10/28/18 02:09; Admin Dose 50 MLS/HR; Start 10/21/18 at 09:00 Sucralfate (Carafate Susp) 1 gm QID PO Last administered on 10/28/18 13:52; Admin Dose 1 GM; Start 10/21/18 at 19:00 IV Flush (NS 10 ml) 10 ml PRN PRN IV IV PROTOCOL; Start 10/22/18 at 12:00 Pantoprazole (Protonix Tab) 40 mg BID@0800,1600 PO Last administered on 10/28/18 08:06; Admin Dose 40 MG; Start 10/23/18 at 16:00 Lisinopril (Zestril) 5 mg DAILY PO Last administered on 10/28/18 08:07; Admin Dose 5 MG; Start 10/26/18 at 12:30 Losartan Potassium (Cozaar) 50 mg BID PO Last administered on 10/28/18 08:07; Admin Dose 50 MG; Start 10/27/18 at 09:00 Amlodipine Besylate (Norvasc) 10 mg DAILY PO Last administered on 10/28/18 08:07; Admin Dose 10 MG; Start 10/27/18 at 09:00 Levetiracetam 750 mg/Dextrose 107.5 ml @ 430 mls/hr Q12 IVPB Last administered on 10/28/18 08:08; Admin Dose 430 MLS/HR; Start 10/27/18 at 09:00 Diazepam (Valium) 5 mg Q4 PRN IV SEIZURES; Start 10/26/18 at 21:00 Omega Chinchilla DO Oct 28, 2018 14:05
[2018-10-28] MEDS ORDERED: MAGNESIUM SULFATE 2 GM/50 ML 50 ML IVPB ONE (14:30)
--- NOTE | 2018-10-28 18:02 | CONS ---
Assessment/Plan Assessment/Plan Assessment/Plan (Daily) 1. acute hyperkalemia 2. acute Prerenal azotemia from Upper GI bleeding 3. acute Upper GI bleeding 4. History of CVA 5. Left vertebral artery stenosis 6. H/o Hypertension 7. H/o Diabetes 8. H/o History of cardiomyopathy, current echocardiogram with ejection fraction 55% 9. H/o Paroxysmal atrial fibrillation 10. Hypernatremia Plan: s/p GI work up and EGD for upper GI bleeding, Hb 9.2 today, BUN/Cr 9/0.9 K 3.3, Na improved to normal Amlodipine 10mg po daily for HTN d/c IVF 1/2 NS now , replace electrolytes as neeed IV keprra 750mg BID will follow up Consultation Date/Type/Reason Admit Date/Time Oct 18, 2018 at 07:52 Initial Consult Date 10/21/18 Type of Consult NEPHROLOGY Requesting Provider: MAGDI EDWARDS MD Date/Time of Note DATE: 10/28/18 TIME: 18:02 Exam/Review of Systems Exam Vitals Vital Signs Date Temp Pulse Resp B/P (MAP) Pulse Ox O2 O2 Flow FiO2 Time Delivery Rate 10/28/18 3 16:00 10/28/18 98.2 20 154/67 95 15:33 (96) 10/27/18 Room Air 18:00 Intake and Output 10/27/18 10/27/18 10/28/18 1515:00 23:00 07:00 IntakeIntake Total 630 ml 157.5 ml 300 ml OutputOutput Total 715 ml 250 ml 850 ml BalanceBalance -85 ml -92.5 ml -550 ml Results Result Diagram: 10/28/18 0528 10/28/18 0528 Results 24hrs Laboratory Tests Test 10/27/18 18:35 10/27/18 20:15 10/28/18 05:28 10/28/18 08:15 Bedside Glucose 135 129 161 White Blood Count 7.1 Red Blood Count 2.93 L Hemoglobin 9.2 L Hematocrit 27.9 L Mean Corpuscular 95.2 Volume Mean Corpuscular 31.4 Hemoglobin Mean Corpuscular 33.0 Hemoglobin Concent Red Cell 14.3 Distribution Width Platelet Count 297 Mean Platelet Volume 10.1 Immature 0.800 H Granulocytes % Neutrophils % 79.2 H Lymphocytes % 10.7 L Monocytes % 5.9 Eosinophils % 3.1 Basophils % 0.3 Nucleated Red Blood 0.0 Cells % Immature 0.060 H Granulocytes # Neutrophils # 5.6 Lymphocytes # 0.8 Monocytes # 0.4 Eosinophils # 0.2 Basophils # 0.0 Nucleated Red Blood 0.0 Cells # Sodium Level 137 Potassium Level 3.3 L Chloride Level 104 Carbon Dioxide Level 28 Anion Gap 5 Blood Urea Nitrogen 9 Creatinine 0.91 Est Glomerular Filtrat Rate mL/min Glucose Level 124 Calcium Level 8.2 L Test 10/28/18 11:50 10/28/18 17:41 Bedside Glucose 149 129 Medications Medication Current Medications Ondansetron HCl (Zofran Inj) 4 mg Q4H PRN IV NAUSEA AND/OR VOMITING Last administered on 10/19/18at 21:53; Admin Dose 4 MG; Start 10/18/18 at 08:30 Hydralazine HCl (Apresoline) 20 mg Q6H PRN IV sbp>160,dbp>95 Last administered on 10/24/18at 20:35; Admin Dose 20 MG; Start 10/18/18 at 08:30 Insulin Aspart (Novolog Insulin Pen) NOVOLOG *MILD* ALGORITHM WITH MEALS BEDTIME SC Last administered on 10/28/18at 12:07; Admin Dose 1 UNIT; Start 10/18/18 at 11:30 Atorvastatin Calcium (Lipitor) 40 mg HS PO Last administered on 10/27/18at 21:05; Admin Dose 40 MG; Start 10/18/18 at 21:00 Morphine Sulfate (morphine) 2 mg Q4H PRN IV SEVERE PAIN LEVEL 7-10; Start 10/18/18 at 21:00 Miscellaneous Information 1 ea NOTE XX ; Start 10/19/18 at 08:30 Glucose (Glutose) 15 gm Q15M PRN PO DECREASED GLUCOSE; Start 10/19/18 at 08:30 Glucose (Glutose) 22.5 gm Q15M PRN PO DECREASED GLUCOSE; Start 10/19/18 at 08:30 Dextrose (D50w Syringe) 25 ml Q15M PRN IV DECREASED GLUCOSE; Start 10/19/18 at 08:30 Dextrose (D50w Syringe) 50 ml Q15M PRN IV DECREASED GLUCOSE; Start 10/19/18 at 08:30 Glucagon (Glucagen) 1 mg Q15M PRN IM DECREASED GLUCOSE; Start 10/19/18 at 08:30 Glucose (Glutose) 15 gm Q15M PRN BUCCAL DECREASED GLUCOSE; Start 10/19/18 at 08:30 Amiodarone HCl (Cordarone) 200 mg BID PO Last administered on 10/28/18 08:08; Admin Dose 200 MG; Start 10/19/18 at 12:30 Carvedilol (Coreg) 6.25 mg BID PO Last administered on 10/28/18 08:07; Admin Dose 6.25 MG; Start 10/20/18 at 21:00 Brimonidine Tartrate (Alphagan P 0.15%) 1 drop BID BOTH EYES Last administered on 10/28/18 08:09; Admin Dose 1 DROP; Start 10/20/18 at 21:00 Eye Lubricant (Artificial Tears Oph) 1 drop QID BOTH EYES Last administered on 10/28/18 16:07; Admin Dose 1 DROP; Start 10/20/18 at 18:30 Fluticasone Propionate (Flonase 0.05% Nasal) 1 spray BID NASAL Last administered on 10/28/18 08:10; Admin Dose 1 SPRAY; Start 10/21/18 at 09:00 Sodium Chloride 1,000 ml @ 50 mls/hr Q20H IV Last administered on 10/28/18 02:09; Admin Dose 50 MLS/HR; Start 10/21/18 at 09:00 Sucralfate (Carafate Susp) 1 gm QID PO Last administered on 10/28/18 16:07; Admin Dose 1 GM; Start 10/21/18 at 19:00 IV Flush (NS 10 ml) 10 ml PRN PRN IV IV PROTOCOL; Start 10/22/18 at 12:00 Pantoprazole (Protonix Tab) 40 mg BID@0800,1600 PO Last administered on 10/28/18 16:07; Admin Dose 40 MG; Start 10/23/18 at 16:00 Lisinopril (Zestril) 5 mg DAILY PO Last administered on 10/28/18 08:07; Admin Dose 5 MG; Start 10/26/18 at 12:30 Losartan Potassium (Cozaar) 50 mg BID PO Last administered on 10/28/18 08:07; Admin Dose 50 MG; Start 10/27/18 at 09:00 Amlodipine Besylate (Norvasc) 10 mg DAILY PO Last administered on 10/28/18at 08:07; Admin Dose 10 MG; Start 10/27/18 at 09:00 Levetiracetam 750 mg/Dextrose 107.5 ml @ 430 mls/hr Q12 IVPB Last administered on 10/28/18at 08:08; Admin Dose 430 MLS/HR; Start 10/27/18 at 09:00 Diazepam (Valium) 5 mg Q4 PRN IV SEIZURES; Start 10/26/18 at 21:00 Potassium Chloride (Klor-Con 20) 40 meq ONCE ONCE PO ; Start 10/28/18 at 20:00; Stop 10/28/18 at 20:01 RICK ESCAMILLA MD Oct 28, 2018 18:02
[2018-10-28] MEDS ORDERED: POTASSIUM CHLORIDE (SR) 20 MEQ TAB PO ONE (20:00)
[2018-10-28] MEDS: ATORVASTATIN 40 MG TAB PO SCH (20:52)
[2018-10-29] VITALS (9 sets, daily range): BP systolic 117–151; BP diastolic 58–67; PULSE 57–70; RESP 18–22
--- NOTE | 2018-10-29 04:38 | CONS ---
DATE OF ADMISSION: 10/18/2018 DATE OF CONSULTATION: HISTORY OF PRESENT ILLNESS: The patient is a 78-year-old status post seizure activity, in which we g ave the patient Versed and we increased her Keppra to 750 mg twice a day after 1 gram of loading dose , in which the patient is doing better, does not have a seizure today. CURRENT MEDICATIONS: Include: 1. Keppra 750 mg twice a day. 2. Versed 1 mg as needed. 3. Amlodipine 10 mg once a day. 4. Cozaar 50 mg once a day. 5. Zestril 5 mg once a day. 6. Protonix 40 mg once a day. 7. Carafate 1 gram q.i.d. 8. Coreg 6.25 mg once a day. 9. Amlodipine . 10. Zofran 4 mg every 4 hours as needed. 11. Diazepam 5 mg every 4 hours p.r.n. for seizure activity. PHYSICAL EXAMINATION: GENERAL: Today, the patient is alert, awake and follows simple commands; however difficult to follow second and third-step commands. CRANIAL NERVES: Cranial nerve II: Pupils are equal on both sides, reactive to light. Cranial nerve s III, IV and : Extraocular muscles are intact. Cranial nerve V: Equal sensation to face. Crani al nerve VII: Decreased nasolabial fold on the left side. Cranial nerve VIII: Decreased hearing bi laterally. Cranial IX and X: Elevates palate. Cranial nerve XI: Elevates shoulder, 5/5. Cranial nerve XII: With straight tongue. MOTOR: Left-sided weakness, 1/5. Sensation is decreased on the left side for light touch and temper ature. COORDINATION: Iqrcar-[id number] test is intact on the right side, left side with weakness. HEART: Regular rate and rhythm. LUNGS: Equal breath sounds. ABDOMEN: Soft, relaxed, nondistended, no tenderness. ASSESSMENT AND PLAN: 1. The patient is a 78-year-old status post seizure activity. Increase Keppra 750 mg twice a day. We will follow up the patient with diazepam 5 mg every 4 hours as needed for seizure activity only. 2. Upper gastrointestinal bleeding in which the patient is on Protonix and Carafate and follow up GI. 3. Acute renal injury, in which the patient was seen by nephrology consult. 4. History of hemiplegia. Keep the patient under deep venous thrombosis prophylaxis and decubitus u lcer prophylaxis. 5. Hypertension. Keep the blood pressure level 140/90. 6. Keep the patient under seizure precaution and fall precaution. Again, thank you, Dr. Cruz, for asking me to see the patient with you. Dictated By: ZECHARIAH SMILEY MD NA/NTS Conf#: [id number] DID#: [id number] CC: MAGDI CRUZ MD;*EndCC*
[2018-10-29] MEDS: INSULIN ASPART [NOVOLOG] 3 ML PEN SC SCH ×4 (08:15→22:14)
[2018-10-29] MEDS: PANTOPRAZOLE (EC) 40 MG TAB PO SCH ×2 (09:16→17:41)
[2018-10-29] MEDS: SUCRALFATE (100 MG/ML) 10ML CUP PO SCH ×4 (09:16→22:03)
[2018-10-29] MEDS: LOSARTAN 50 MG TAB PO SCH ×2 (09:44→22:07)
[2018-10-29] MEDS: LISINOPRIL 5 MG TAB PO SCH (09:44)
[2018-10-29] MEDS: AMLODIPINE 10 MG TAB PO SCH (09:44)
[2018-10-29] MEDS: AMIODARONE 200 MG TAB PO SCH ×2 (09:45→22:06)
[2018-10-29] MEDS: FLUTICASONE 0.05% 16 GM NAS SPRAY NASAL SCH ×2 (09:46→22:06)
[2018-10-29] MEDS: BRIMONIDINE 0.15% 5 ML OPH BOTH EYES SCH ×2 (09:46→22:03)
[2018-10-29] MEDS: ARTIFICIAL TEARS 15 ML OPH BOTH EYES SCH ×4 (09:48→22:03)
[2018-10-29] MEDS: LEVETIRACETAM IV 750 MG in DEXTROSE 5% 100 ML IVPB SCH ×2 (10:28→22:05)
--- NOTE | 2018-10-29 12:05 | CONS ---
Assessment/Plan Assessment/Plan Assessment/Plan (Daily) 1. acute hyperkalemia 2. acute Prerenal azotemia from Upper GI bleeding 3. acute Upper GI bleeding 4. History of CVA 5. Left vertebral artery stenosis 6. H/o Hypertension 7. H/o Diabetes 8. H/o History of cardiomyopathy, current echocardiogram with ejection fraction 55% 9. H/o Paroxysmal atrial fibrillation 10. Hypernatremia Plan: s/p GI work up and EGD for upper GI bleeding, Hb 9.2 today, BUN/Cr 8/0.9- other electrolytes stable Amlodipine 10mg po daily for HTN IV keprra 750mg BID will follow up Consultation Date/Type/Reason Admit Date/Time Oct 18, 2018 at 07:52 Initial Consult Date 10/21/18 Type of Consult NEPHROLOGY Requesting Provider: MAGDI EDWARDS MD Date/Time of Note DATE: 10/29/18 TIME: 12:05 Exam/Review of Systems Exam Vitals Vital Signs Date Temp Pulse Resp B/P (MAP) Pulse Ox O2 O2 Flow FiO2 Time Delivery Rate 10/29/18 98.6 67 22 129/63 92 Room Air 11:13 (85) Intake and Output 10/28/18 10/28/18 10/29/18 1515:00 23:00 07:00 IntakeIntake Total 1637.5 ml 300 ml OutputOutput Total 820 ml 700 ml BalanceBalance 817.5 ml -400 ml Results Result Diagram: 10/29/18 0510/29/18 0519 Results 24hrs Laboratory Tests Test 10/28/18 17:41 10/28/18 20:43 10/29/18 05:19 10/29/18 08:07 Bedside Glucose 129 161 141 White Blood Count 5.5 # Red Blood Count 2.84 L Hemoglobin 8.8 L Hematocrit 26.9 L Mean Corpuscular 94.7 Volume Mean Corpuscular 31.0 Hemoglobin Mean Corpuscular 32.7 Hemoglobin Concent Red Cell 14.5 Distribution Width Platelet Count 290 Mean Platelet Volume 10.1 Immature 0.200 Granulocytes % Neutrophils % 73.1 Lymphocytes % 16.3 Monocytes % 6.2 Eosinophils % 3.8 Basophils % 0.4 Nucleated Red Blood 0.0 Cells % Immature 0.010 Granulocytes # Neutrophils # 4.0 Lymphocytes # 0.9 Monocytes # 0.3 Eosinophils # 0.2 Basophils # 0.0 Nucleated Red Blood 0.0 Cells # Sodium Level 139 Potassium Level 4.0 Chloride Level 107 Carbon Dioxide Level 27 Anion Gap 5 Blood Urea Nitrogen 8 Creatinine 0.91 Est Glomerular Filtrat Rate mL/min Glucose Level 117 Calcium Level 8.3 L Magnesium Level 2.3 Medications Medication Current Medications Ondansetron HCl (Zofran Inj) 4 mg Q4H PRN IV NAUSEA AND/OR VOMITING Last administered on 10/19/18 21:53; Admin Dose 4 MG; Start 10/18/18 at 08:30 Hydralazine HCl (Apresoline) 20 mg Q6H PRN IV sbp>160,dbp>95 Last administered on 10/24/18 20:35; Admin Dose 20 MG; Start 10/18/18 at 08:30 Insulin Aspart (Novolog Insulin Pen) NOVOLOG *MILD* ALGORITHM WITH MEALS BEDTIME SC Last administered on 10/29/18 08:15; Admin Dose 1 UNIT; Start 10/18/18 at 11:30 Atorvastatin Calcium (Lipitor) 40 mg HS PO Last administered on 10/28/18 20:52; Admin Dose 40 MG; Start 10/18/18 at 21:00 Morphine Sulfate (morphine) 2 mg Q4H PRN IV SEVERE PAIN LEVEL 7-10; Start 10/18/18 at 21:00 Miscellaneous Information 1 ea NOTE XX ; Start 10/19/18 at 08:30 Glucose (Glutose) 15 gm Q15M PRN PO DECREASED GLUCOSE; Start 10/19/18 at 08:30 Glucose (Glutose) 22.5 gm Q15M PRN PO DECREASED GLUCOSE; Start 10/19/18 at 08:30 Dextrose (D50w Syringe) 25 ml Q15M PRN IV DECREASED GLUCOSE; Start 10/19/18 at 08:30 Dextrose (D50w Syringe) 50 ml Q15M PRN IV DECREASED GLUCOSE; Start 10/19/18 at 08:30 Glucagon (Glucagen) 1 mg Q15M PRN IM DECREASED GLUCOSE; Start 10/19/18 at 08:30 Glucose (Glutose) 15 gm Q15M PRN BUCCAL DECREASED GLUCOSE; Start 10/19/18 at 08:30 Amiodarone HCl (Cordarone) 200 mg BID PO Last administered on 10/29/18 09:45; Admin Dose 200 MG; Start 10/19/18 at 12:30 Carvedilol (Coreg) 6.25 mg BID PO Last administered on 10/29/18 09:45; Admin Dose 6.25 MG; Start 10/20/18 at 21:00 Brimonidine Tartrate (Alphagan P 0.15%) 1 drop BID BOTH EYES Last administered on 10/29/18 09:46; Admin Dose 1 DROP; Start 10/20/18 at 21:00 Eye Lubricant (Artificial Tears Oph) 1 drop QID BOTH EYES Last administered on 10/29/18 09:48; Admin Dose 1 DROP; Start 10/20/18 at 18:30 Fluticasone Propionate (Flonase 0.05% Nasal) 1 spray BID NASAL Last administered on 10/29/18 09:46; Admin Dose 1 SPRAY; Start 10/21/18 at 09:00 Sucralfate (Carafate Susp) 1 gm QID PO Last administered on 10/29/18 09:16; Admin Dose 1 GM; Start 10/21/18 at 19:00 IV Flush (NS 10 ml) 10 ml PRN PRN IV IV PROTOCOL; Start 10/22/18 at 12:00 Pantoprazole (Protonix Tab) 40 mg BID@0800,1600 PO Last administered on 10/29/18 09:16; Admin Dose 40 MG; Start 10/23/18 at 16:00 Lisinopril (Zestril) 5 mg DAILY PO Last administered on 10/29/18 09:44; Admin Dose 5 MG; Start 10/26/18 at 12:30 Losartan Potassium (Cozaar) 50 mg BID PO Last administered on 10/29/18 09:44; Admin Dose 50 MG; Start 10/27/18 at 09:00 Amlodipine Besylate (Norvasc) 10 mg DAILY PO Last administered on 10/29/18 09:44; Admin Dose 10 MG; Start 10/27/18 at 09:00 Levetiracetam 750 mg/Dextrose 107.5 ml @ 430 mls/hr Q12 IVPB Last administered on 10/29/18 10:28; Admin Dose 430 MLS/HR; Start 10/27/18 at 09:00 Diazepam (Valium) 5 mg Q4 PRN IV SEIZURES; Start 10/26/18 at 21:00 RICK ESCAMILLA MD Oct 29, 2018 12:05
--- NOTE | 2018-10-29 16:59 | PN ---
Date/Time of Note Date/Time of Note DATE: 10/29/18 TIME: 16:58 Assessment/Plan VTE Prophylaxis Risk score (from Ns)>0 risk: 8 SCD applied (from Ns): Yes Pharmacological prophylaxis: NA/contraindicated Pharm contraindication: bleeding Lines/Catheters IV Catheter Type (from Nrsg): PICC Line Central line still needed: Yes Urinary Cath still in place: Yes Reason Cath still needed: urinary retention Assessment/Plan Hospital Course Patient is awake, alert, oriented, no seizure activity noted. Restart PT, globin is 8.8 continue to monitor patient had BM today no hematochezia Assessment/Plan - Possible breakthrough seizure, continue Keppra at increased dose. MRI which was negative for acute stroke. Status post spinal tap follow-up on CSF culture. Dr Rodriguez is following in neurology consultation. - S/p upper gastrointestinal bleed due to bleeding duodenal ulcer. Continue Protonix and Carafate Dr. Centeno is following in GI. S/p EGD on 10/18/2018 with notion of duodenal ulcer with large amount of clots. Status post EGD on 10/21/2018 with impression of duodenal ulcer with stigmata of recent bleeding, status post biopsies which are negative. - Anemia of acute blood loss, s/p blood transfusion, monitor H&H. - Acute kidney injury. Dr. Tate is following in nephrology consultation. - UTI due to E. coli. S/p treatment with Rocephin. - Hx of cerebrovascular accident with left hemiparesis. Hold off on antiplatelet or anticoagulation due to active gastrointestinal bleed. - Hypertension. Continue IV hydralazine on p.r.n. basis. - PAF currently in sinus rhythm, no anticoagulation due to acute GI bleed. - Cardiomyopathy wit EF of 40%. Further recommendations based on clinical coarse. Plan of care discussed with Dr Cruz. Result Diagram: 10/29/1851810/29/18518 Results 24hrs Laboratory Tests Test 10/28/18 17:41 10/28/18 20:43 10/29/18 05:19 10/29/18 08:07 Bedside Glucose 129 161 141 White Blood Count 5.5 # Red Blood Count 2.84 L Hemoglobin 8.8 L Hematocrit 26.9 L Mean Corpuscular 94.7 Volume Mean Corpuscular 31.0 Hemoglobin Mean Corpuscular 32.7 Hemoglobin Concent Red Cell 14.5 Distribution Width Platelet Count 290 Mean Platelet Volume 10.1 Immature 0.200 Granulocytes % Neutrophils % 73.1 Lymphocytes % 16.3 Monocytes % 6.2 Eosinophils % 3.8 Basophils % 0.4 Nucleated Red Blood 0.0 Cells % Immature 0.010 Granulocytes # Neutrophils # 4.0 Lymphocytes # 0.9 Monocytes # 0.3 Eosinophils # 0.2 Basophils # 0.0 Nucleated Red Blood 0.0 Cells # Sodium Level 139 Potassium Level 4.0 Chloride Level 107 Carbon Dioxide Level 27 Anion Gap 5 Blood Urea Nitrogen 8 Creatinine 0.91 Est Glomerular Filtrat Rate mL/min Glucose Level 117 Calcium Level 8.3 L Magnesium Level 2.3 Test 10/29/18 12:03 Bedside Glucose 201 Exam/Review of Systems Exam Vitals Vital Signs Date Temp Pulse Resp B/P (MAP) Pulse Ox O2 O2 Flow FiO2 Time Delivery Rate 10/29/18 67 16:30 10/29/18 98.9 22 129/63 95 Room Air 15:27 (85) Intake and Output 10/28/18 10/28/18 10/29/18 1515:00 23:00 07:00 IntakeIntake Total 1637.5 ml 300 ml OutputOutput Total 820 ml 700 ml BalanceBalance 817.5 ml -400 ml Exam Constitutional: alert, oriented Respiratory: clear to auscultation Cardiovascular: regular rate and rhythm Gastrointestinal: soft, tender Extremities: normal pulses Results Results 24hrs Laboratory Tests Test 10/28/18 17:41 10/28/18 20:43 10/29/18 05:19 10/29/18 08:07 Bedside Glucose 129 161 141 White Blood Count 5.5 # Red Blood Count 2.84 L Hemoglobin 8.8 L Hematocrit 26.9 L Mean Corpuscular 94.7 Volume Mean Corpuscular 31.0 Hemoglobin Mean Corpuscular 32.7 Hemoglobin Concent Red Cell 14.5 Distribution Width Platelet Count 290 Mean Platelet Volume 10.1 Immature 0.200 Granulocytes % Neutrophils % 73.1 Lymphocytes % 16.3 Monocytes % 6.2 Eosinophils % 3.8 Basophils % 0.4 Nucleated Red Blood 0.0 Cells % Immature 0.010 Granulocytes # Neutrophils # 4.0 Lymphocytes # 0.9 Monocytes # 0.3 Eosinophils # 0.2 Basophils # 0.0 Nucleated Red Blood 0.0 Cells # Sodium Level 139 Potassium Level 4.0 Chloride Level 107 Carbon Dioxide Level 27 Anion Gap 5 Blood Urea Nitrogen 8 Creatinine 0.91 Est Glomerular Filtrat Rate mL/min Glucose Level 117 Calcium Level 8.3 L Magnesium Level 2.3 Test 10/29/18 12:03 Bedside Glucose 201 Medications Medication Current Medications Ondansetron HCl (Zofran Inj) 4 mg Q4H PRN IV NAUSEA AND/OR VOMITING Last administered on 10/19/18 21:53; Admin Dose 4 MG; Start 10/18/18 at 08:30 Hydralazine HCl (Apresoline) 20 mg Q6H PRN IV sbp>160,dbp>95 Last administered on 10/24/18 20:35; Admin Dose 20 MG; Start 10/18/18 at 08:30 Insulin Aspart (Novolog Insulin Pen) NOVOLOG *MILD* ALGORITHM WITH MEALS BEDTIME SC Last administered on 10/29/18 12:22; Admin Dose 2 UNIT; Start 10/18/18 at 11:30 Atorvastatin Calcium (Lipitor) 40 mg HS PO Last administered on 10/28/18at 20:52; Admin Dose 40 MG; Start 10/18/18 at 21:00 Morphine Sulfate (morphine) 2 mg Q4H PRN IV SEVERE PAIN LEVEL 7-10; Start 10/18/18 at 21:00 Miscellaneous Information 1 ea NOTE XX ; Start 10/19/18 at 08:30 Glucose (Glutose) 15 gm Q15M PRN PO DECREASED GLUCOSE; Start 10/19/18 at 08:30 Glucose (Glutose) 22.5 gm Q15M PRN PO DECREASED GLUCOSE; Start 10/19/18 at 08:30 Dextrose (D50w Syringe) 25 ml Q15M PRN IV DECREASED GLUCOSE; Start 10/19/18 at 08:30 Dextrose (D50w Syringe) 50 ml Q15M PRN IV DECREASED GLUCOSE; Start 10/19/18 at 08:30 Glucagon (Glucagen) 1 mg Q15M PRN IM DECREASED GLUCOSE; Start 10/19/18 at 08:30 Glucose (Glutose) 15 gm Q15M PRN BUCCAL DECREASED GLUCOSE; Start 10/19/18 at 08:30 Amiodarone HCl (Cordarone) 200 mg BID PO Last administered on 10/29/18at 09:45; Admin Dose 200 MG; Start 10/19/18 at 12:30 Carvedilol (Coreg) 6.25 mg BID PO Last administered on 10/29/18 09:45; Admin Dose 6.25 MG; Start 10/20/18 at 21:00 Brimonidine Tartrate (Alphagan P 0.15%) 1 drop BID BOTH EYES Last administered on 10/29/18 09:46; Admin Dose 1 DROP; Start 10/20/18 at 21:00 Eye Lubricant (Artificial Tears Oph) 1 drop QID BOTH EYES Last administered on 10/29/18 13:00; Admin Dose 1 DROP; Start 10/20/18 at 18:30 Fluticasone Propionate (Flonase 0.05% Nasal) 1 spray BID NASAL Last administered on 10/29/18 09:46; Admin Dose 1 SPRAY; Start 10/21/18 at 09:00 Sucralfate (Carafate Susp) 1 gm QID PO Last administered on 10/29/18 14:05; Admin Dose 1 GM; Start 10/21/18 at 19:00 IV Flush (NS 10 ml) 10 ml PRN PRN IV IV PROTOCOL; Start 10/22/18 at 12:00 Pantoprazole (Protonix Tab) 40 mg BID@0800,1600 PO Last administered on 10/29/18 09:16; Admin Dose 40 MG; Start 10/23/18 at 16:00 Lisinopril (Zestril) 5 mg DAILY PO Last administered on 10/29/18 09:44; Admin Dose 5 MG; Start 10/26/18 at 12:30 Losartan Potassium (Cozaar) 50 mg BID PO Last administered on 10/29/18 09:44; Admin Dose 50 MG; Start 10/27/18 at 09:00 Amlodipine Besylate (Norvasc) 10 mg DAILY PO Last administered on 10/29/18 09:44; Admin Dose 10 MG; Start 10/27/18 at 09:00 Levetiracetam 750 mg/Dextrose 107.5 ml @ 430 mls/hr Q12 IVPB Last administered on 10/29/18 10:28; Admin Dose 430 MLS/HR; Start 10/27/18 at 09:00 Diazepam (Valium) 5 mg Q4 PRN IV SEIZURES; Start 10/26/18 at 21:00 JANET FOOTE Oct 29, 2018 16:59
--- NOTE | 2018-10-29 17:30 | CONS ---
Assessment/Plan Assessment/Plan Hospital Course (Demo Recall) Upper GI bleed History of CVA Left vertebral artery stenosis Hypertension Cerebral artery disease Diabetes History of cardiomyopathy, current echocardiogram with ejection fraction 55% Paroxysmal atrial fibrillation -Patient with upper GI bleed and thought secondary to NSAID use and Plavix. Patient was on Plavix because of known cerebrovascular disease and history of CVA on previous admissions. On hold at the current time -Patient with paroxysmal atrial fibrillation noted on telemetry and currently sinus rhythm. Given recent GI bleed, cannot tolerate anticoagulation. Continue beta-katherine, decreased amiodarone to daily -Blood pressure trend overall stable -Maintain potassium above 4.0 and magnesium above 2.0. Consultation Date/Type/Reason Admit Date/Time Oct 18, 2018 at 07:52 Initial Consult Date 10/18/18 Type of Consult Cardiology Requesting Provider: MAGDI EDWRADS MD Date/Time of Note DATE: 10/29/18 TIME: 17:29 24 HR Interval Summary Free Text/Dictation Denies shortness of breath, chest pain Exam/Review of Systems Vital Signs Vitals Vital Signs Date Temp Pulse Resp B/P (MAP) Pulse Ox O2 O2 Flow FiO2 Time Delivery Rate 10/29/18 67 16:30 10/29/18 98.9 22 129/63 95 Room Air 15:27 (85) Intake and Output 10/28/18 10/28/18 10/29/18 1515:00 23:00 07:00 IntakeIntake Total 1637.5 ml 300 ml OutputOutput Total 820 ml 700 ml BalanceBalance 817.5 ml -400 ml Exam Constitutional: alert (Following commands, no apparent distress) Head: normocephalic Respiratory: other (Coarse breath sounds bilaterally, no wheezing) Cardiovascular: regular rate and rhythm (S1-S2 heard) Gastrointestinal: soft, non-tender, bowel sounds Extremities: edema (Trace) Labs Result Diagram: 10/29/1851810/29/18518 Results 24hrs Laboratory Tests Test 10/28/18 17:41 10/28/18 20:43 10/29/18 05:19 10/29/18 08:07 Bedside Glucose 129 161 141 White Blood Count 5.5 # Red Blood Count 2.84 L Hemoglobin 8.8 L Hematocrit 26.9 L Mean Corpuscular 94.7 Volume Mean Corpuscular 31.0 Hemoglobin Mean Corpuscular 32.7 Hemoglobin Concent Red Cell 14.5 Distribution Width Platelet Count 290 Mean Platelet Volume 10.1 Immature 0.200 Granulocytes % Neutrophils % 73.1 Lymphocytes % 16.3 Monocytes % 6.2 Eosinophils % 3.8 Basophils % 0.4 Nucleated Red Blood 0.0 Cells % Immature 0.010 Granulocytes # Neutrophils # 4.0 Lymphocytes # 0.9 Monocytes # 0.3 Eosinophils # 0.2 Basophils # 0.0 Nucleated Red Blood 0.0 Cells # Sodium Level 139 Potassium Level 4.0 Chloride Level 107 Carbon Dioxide Level 27 Anion Gap 5 Blood Urea Nitrogen 8 Creatinine 0.91 Est Glomerular Filtrat Rate mL/min Glucose Level 117 Calcium Level 8.3 L Magnesium Level 2.3 Test 10/29/18 12:03 10/29/18 17:07 Bedside Glucose 201 111 Medications Medications Current Medications Ondansetron HCl (Zofran Inj) 4 mg Q4H PRN IV NAUSEA AND/OR VOMITING Last ad ministered on 10/19/18at 21:53; Admin Dose 4 MG; Start 10/18/18 at 08:30 Hydralazine HCl (Apresoline) 20 mg Q6H PRN IV sbp>160,dbp>95 Last administered on 10/24/18at 20:35; Admin Dose 20 MG; Start 10/18/18 at 08:30 Insulin Aspart (Novolog Insulin Pen) NOVOLOG *MILD* ALGORITHM WITH MEALS BEDTIME SC Last administered on 10/29/18 12:22; Admin Dose 2 UNIT; Start 10/18/18 at 11:30 Atorvastatin Calcium (Lipitor) 40 mg HS PO Last administered on 10/28/18at 20:52; Admin Dose 40 MG; Start 10/18/18 at 21:00 Morphine Sulfate (morphine) 2 mg Q4H PRN IV SEVERE PAIN LEVEL 7-10; Start 10/18/18 at 21:00 Miscellaneous Information 1 ea NOTE XX ; Start 10/19/18 at 08:30 Glucose (Glutose) 15 gm Q15M PRN PO DECREASED GLUCOSE; Start 10/19/18 at 08:30 Glucose (Glutose) 22.5 gm Q15M PRN PO DECREASED GLUCOSE; Start 10/19/18 at 08:30 Dextrose (D50w Syringe) 25 ml Q15M PRN IV DECREASED GLUCOSE; Start 10/19/18 at 08:30 Dextrose (D50w Syringe) 50 ml Q15M PRN IV DECREASED GLUCOSE; Start 10/19/18 at 08:30 Glucagon (Glucagen) 1 mg Q15M PRN IM DECREASED GLUCOSE; Start 10/19/18 at 08:30 Glucose (Glutose) 15 gm Q15M PRN BUCCAL DECREASED GLUCOSE; Start 10/19/18 at 08:30 Amiodarone HCl (Cordarone) 200 mg BID PO Last administered on 10/29/18 09:45; Admin Dose 200 MG; Start 10/19/18 at 12:30 Carvedilol (Coreg) 6.25 mg BID PO Last administered on 10/29/18 09:45; Admin Dose 6.25 MG; Start 10/20/18 at 21:00 Brimonidine Tartrate (Alphagan P 0.15%) 1 drop BID BOTH EYES Last administered on 10/29/18 09:46; Admin Dose 1 DROP; Start 10/20/18 at 21:00 Eye Lubricant (Artificial Tears Oph) 1 drop QID BOTH EYES Last administered on 10/29/18 13:00; Admin Dose 1 DROP; Start 10/20/18 at 18:30 Fluticasone Propionate (Flonase 0.05% Nasal) 1 spray BID NASAL Last administered on 10/29/18 09:46; Admin Dose 1 SPRAY; Start 10/21/18 at 09:00 Sucralfate (Carafate Susp) 1 gm QID PO Last administered on 10/29/18 14:05; Admin Dose 1 GM; Start 10/21/18 at 19:00 IV Flush (NS 10 ml) 10 ml PRN PRN IV IV PROTOCOL; Start 10/22/18 at 12:00 Pantoprazole (Protonix Tab) 40 mg BID@0800,1600 PO Last administered on 09:16; Admin Dose 40 MG; Start 10/23/18 at 16:00 Lisinopril (Zestril) 5 mg DAILY PO Last administered on 10/29/18 09:44; Admin Dose 5 MG; Start 10/26/18 at 12:30 Losartan Potassium (Cozaar) 50 mg BID PO Last administered on 10/29/18 09:44; Admin Dose 50 MG; Start 10/27/18 at 09:00 Amlodipine Besylate (Norvasc) 10 mg DAILY PO Last administered on 10/29/18at 09:44; Admin Dose 10 MG; Start 10/27/18 at 09:00 Levetiracetam 750 mg/Dextrose 107.5 ml @ 430 mls/hr Q12 IVPB Last administered on 10/29/18at 10:28; Admin Dose 430 MLS/HR; Start 10/27/18 at 09:00 Diazepam (Valium) 5 mg Q4 PRN IV SEIZURES; Start 10/26/18 at 21:00 Omega Chinchilla DO Oct 29, 2018 17:30
[2018-10-29] MEDS: ATORVASTATIN 40 MG TAB PO SCH (22:06)
[2018-10-30] VITALS (9 sets, daily range): BP systolic 131–180; BP diastolic 61–77; PULSE 61–71; RESP 17–19
--- NOTE | 2018-10-30 05:12 | HKNOTE ---
DATE OF SERVICE: HISTORY OF PRESENT ILLNESS: The patient is a 78-year-old status post seizure activity in which the p atient is on Keppra 750 mg and diazepam as needed in which the patient is under good control. CURRENT MEDICATIONS: 1. Keppra 750 mg twice a day. 2. Diazepam 5 mg every 4 hours as needed for seizure activity only. 3. Amlodipine 10 mg once a day. 4. Cozaar 50 mg once a day. 5. Zestril 5 mg once a day. 6. Protonix 40 mg once a day. 7. Carafate 1 g q.i.d. 8. Coreg 6.25 mg once a day. 9. Zofran 4 mg every 4 hours as needed. PHYSICAL EXAMINATION: GENERAL: Today, the patient is alert, awake, oriented, following simple commands. CRANIAL NERVES: Cranial nerve II: Pupils equal both sides, reactive to light. Cranial nerves III, IV and : Extraocular muscles are intact without nystagmus. Cranial nerve V: Equal sensation to f dale. Cranial nerve VII: Decreased nasolabial fold on the left side. Cranial nerve VIII: Decreased hearing bilaterally. Cranial nerve X: Elevates palate. Cranial nerve XI: Elevates shoulder 5/5. Cranial nerve XII: With straight tongue. MOTOR: Left side 1/5, right side is 4+/5. Sensation decreased in the left side for light touch and temperature. COORDINATION: [id number] test intact on the right side. Left-sided weakness. HEART: Regular rate and rhythm. LUNGS: Equal breath sounds. ABDOMEN: Soft, relaxed, nondistended, no tenderness. ASSESSMENT AND PLAN: 1. The patient is a 78-year-old status post seizure activity. Keep the patient on Keppra 750 mg twi ce a day and follow up the patient every 4 hours as needed for seizure activity. We will keep the patient under seizure precaution and fall precaution for now. 2. Underlying GI bleeding which the patient is followed by the GI team, on Protonix and Carafate. 3. Acute renal injury for which the patient is followed by nephrology group. 4. History of hemiplegia. Keep the patient under deep venous thrombosis prophylaxis and decubitus u lcer prophylaxis. 5. Hypertension. Keep the blood pressure at the level of 140/90 or less to avoid any extension of t he stroke. 6. Keep the patient under seizure precaution and fall precaution. Again, thank you, Dr. Cruz, for asking me to see the patient with you. Dictated By: ZECHARIAH JUNIOR/NTS Conf#: [id number] DID#: [id number] CC: MAGDI CRUZ MD;*EndCC*
[2018-10-30] MEDS: INSULIN ASPART [NOVOLOG] 3 ML PEN SC SCH ×4 (07:41→21:24)
[2018-10-30] MEDS: SUCRALFATE (100 MG/ML) 10ML CUP PO SCH ×4 (08:10→20:53)
[2018-10-30] MEDS: PANTOPRAZOLE (EC) 40 MG TAB PO SCH ×2 (08:10→15:40)
[2018-10-30] MEDS: LOSARTAN 50 MG TAB PO SCH ×2 (08:11→20:54)
[2018-10-30] MEDS: AMLODIPINE 10 MG TAB PO SCH (08:11)
[2018-10-30] MEDS: AMIODARONE 200 MG TAB PO SCH (08:11)
[2018-10-30] MEDS: LISINOPRIL 5 MG TAB PO SCH (08:11)
[2018-10-30] MEDS: FLUTICASONE 0.05% 16 GM NAS SPRAY NASAL SCH ×2 (09:24→20:55)
[2018-10-30] MEDS: BRIMONIDINE 0.15% 5 ML OPH BOTH EYES SCH ×2 (09:24→20:55)
[2018-10-30] MEDS: ARTIFICIAL TEARS 15 ML OPH BOTH EYES SCH ×4 (09:24→20:55)
[2018-10-30] MEDS: LEVETIRACETAM IV 750 MG in DEXTROSE 5% 100 ML IVPB SCH ×2 (09:24→22:23)
--- NOTE | 2018-10-30 11:40 | CONS ---
Assessment/Plan Assessment/Plan Hospital Course (Demo Recall) Upper GI bleed History of CVA Left vertebral artery stenosis Hypertension Cerebral artery disease Diabetes History of cardiomyopathy, current echocardiogram with ejection fraction 55% Paroxysmal atrial fibrillation -Patient with upper GI bleed and thought secondary to NSAID use and Plavix. Patient was on Plavix because of known cerebrovascular disease and history of CVA on previous admissions. On hold at the current time -Patient with paroxysmal atrial fibrillation noted on telemetry and currently sinus rhythm. Given recent GI bleed, cannot tolerate anticoagulation. Continue beta-katherine, decreased amiodarone to daily -Maintain potassium above 4.0 and magnesium above 2.0. Consultation Date/Type/Reason Admit Date/Time Oct 18, 2018 at 07:52 Initial Consult Date 10/18/18 Type of Consult Cardiology Requesting Provider: MAGDI EDWARDS MD Date/Time of Note DATE: 10/30/18 TIME: 11:39 24 HR Interval Summary Free Text/Dictation Denies shortness of breath, palpitations Exam/Review of Systems Vital Signs Vitals Vital Signs Date Temp Pulse Resp B/P (MAP) Pulse Ox O2 O2 Flow FiO2 Time Delivery Rate 10/30/18 98.7 61 18 131/61 94 11:28 (84) 10/29/18 Room Air 15:27 Intake and Output 10/29/18 10/29/18 10/30/18 1515:00 23:00 07:00 IntakeIntake Total 1227.5 ml 400 ml OutputOutput Total 750 ml 1600 ml BalanceBalance 477.5 ml -1200 ml Exam Constitutional: alert, oriented (No apparent distress, family bedside) Head: normocephalic Respiratory: other (Coarse breath sounds bilaterally, no wheezing) Cardiovascular: regular rate and rhythm (S1-S2 heard) Gastrointestinal: soft, non-tender, bowel sounds Extremities: edema (Trace) Labs Result Diagram: 10/30/18 0533 10/30/18 0533 Results 24hrs Laboratory Tests Test 10/29/18 12:03 10/29/18 17:07 10/29/18 22:12 10/30/18 05:33 Bedside Glucose 201 111 151 White Blood Count 5.9 Red Blood Count 2.93 L Hemoglobin 9.2 L Hematocrit 27.7 L Mean Corpuscular 94.5 Volume Mean Corpuscular 31.4 Hemoglobin Mean Corpuscular 33.2 Hemoglobin Concent Red Cell 14.3 Distribution Width Platelet Count 308 Mean Platelet Volume 9.7 Immature 0.500 H Granulocytes % Neutrophils % 74.3 Lymphocytes % 14.9 L Monocytes % 6.8 Eosinophils % 3.2 Basophils % 0.3 Nucleated Red Blood 0.0 Cells % Immature 0.030 Granulocytes # Neutrophils # 4.4 Lymphocytes # 0.9 Monocytes # 0.4 Eosinophils # 0.2 Basophils # 0.0 Nucleated Red Blood 0.0 Cells # Sodium Level 139 Potassium Level 3.8 Chloride Level 102 Carbon Dioxide Level 28 Anion Gap 9 Blood Urea Nitrogen 12 Creatinine 0.91 Est Glomerular Filtrat Rate mL/min Glucose Level 118 Calcium Level 8.6 Test 10/30/18 07:40 Bedside Glucose 131 Medications Medications Current Medications Ondansetron HCl (Zofran Inj) 4 mg Q4H PRN IV NAUSEA AND/OR VOMITING Last administered on 10/19/18 21:53; Admin Dose 4 MG; Start 10/18/18 at 08:30 Hydralazine HCl (Apresoline) 20 mg Q6H PRN IV sbp>160,dbp>95 Last administered on 10/24/18at 20:35; Admin Dose 20 MG; Start 10/18/18 at 08:30 Insulin Aspart (Novolog Insulin Pen) NOVOLOG *MILD* ALGORITHM WITH MEALS BEDTIME SC Last administered on 10/29/18 12:22; Admin Dose 2 UNIT; Start 10/18/18 at 11:30 Atorvastatin Calcium (Lipitor) 40 mg HS PO Last administered on 10/29/18at 22:06; Admin Dose 40 MG; Start 10/18/18 at 21:00 Morphine Sulfate (morphine) 2 mg Q4H PRN IV SEVERE PAIN LEVEL 7-10; Start 10/18/18 at 21:00 Miscellaneous Information 1 ea NOTE XX ; Start 10/19/18 at 08:30 Glucose (Glutose) 15 gm Q15M PRN PO DECREASED GLUCOSE; Start 10/19/18 at 08:30 Glucose (Glutose) 22.5 gm Q15M PRN PO DECREASED GLUCOSE; Start 10/19/18 at 08:30 Dextrose (D50w Syringe) 25 ml Q15M PRN IV DECREASED GLUCOSE; Start 10/19/18 at 08:30 Dextrose (D50w Syringe) 50 ml Q15M PRN IV DECREASED GLUCOSE; Start 10/19/18 at 08:30 Glucagon (Glucagen) 1 mg Q15M PRN IM DECREASED GLUCOSE; Start 10/19/18 at 08:30 Glucose (Glutose) 15 gm Q15M PRN BUCCAL DECREASED GLUCOSE; Start 10/19/18 at 08:30 Amiodarone HCl (Cordarone) 200 mg BID PO Last administered on 10/30/18 08:11; Admin Dose 200 MG; Start 10/19/18 at 12:30 Carvedilol (Coreg) 6.25 mg BID PO Last administered on 10/30/18 08:12; Admin Dose 6.25 MG; Start 10/20/18 at 21:00 Brimonidine Tartrate (Alphagan P 0.15%) 1 drop BID BOTH EYES Last administered on 10/30/18 09:24; Admin Dose 1 DROP; Start 10/20/18 at 21:00 Eye Lubricant (Artificial Tears Oph) 1 drop QID BOTH EYES Last administered on 10/30/18 09:24; Admin Dose 1 DROP; Start 10/20/18 at 18:30 Fluticasone Propionate (Flonase 0.05% Nasal) 1 spray BID NASAL Last administered on 10/30/18 09:24; Admin Dose 1 SPRAY; Start 10/21/18 at 09:00 Sucralfate (Carafate Susp) 1 gm QID PO Last administered on 10/30/18 08:10; Admin Dose 1 GM; Start 10/21/18 at 19:00 IV Flush (NS 10 ml) 10 ml PRN PRN IV IV PROTOCOL; Start 10/22/18 at 12:00 Pantoprazole (Protonix Tab) 40 mg BID@0800,1600 PO Last administered on 10/30/18 08:10; Admin Dose 40 MG; Start 10/23/18 at 16:00 Lisinopril (Zestril) 5 mg DAILY PO Last administered on 10/30/18 08:11; Admin Dose 5 MG; Start 10/26/18 at 12:30 Losartan Potassium (Cozaar) 50 mg BID PO Last administered on 10/30/18 08:11; Admin Dose 50 MG; Start 10/27/18 at 09:00 Amlodipine Besylate (Norvasc) 10 mg DAILY PO Last administered on 3/29/19at 08:11; Admin Dose 10 MG; Start 10/27/18 at 09:00 Levetiracetam 750 mg/Dextrose 107.5 ml @ 430 mls/hr Q12 IVPB Last administered on 10/30/18at 09:24; Admin Dose 430 MLS/HR; Start 10/27/18 at 09:00 Diazepam (Valium) 5 mg Q4 PRN IV SEIZURES; Start 10/26/18 at 21:00 Omega Chinchilla DO Oct 30, 2018 11:40
--- NOTE | 2018-10-30 12:38 | CONS ---
Assessment/Plan Assessment/Plan Assessment/Plan (Daily) 1. acute hyperkalemia 2. acute Prerenal azotemia from Upper GI bleeding 3. acute Upper GI bleeding 4. History of CVA 5. Left vertebral artery stenosis 6. H/o Hypertension 7. H/o Diabetes 8. H/o History of cardiomyopathy, current echocardiogram with ejection fraction 55% 9. H/o Paroxysmal atrial fibrillation 10. Hypernatremia Plan: s/p GI work up and EGD for upper GI bleeding, Hb 9.2 today, BUN/Cr 12/0.91, other electrolyte stable Amlodipine 10mg po daily for HTN d/c IVF 1/2 NS now , replace electrolytes as neeed IV keprra 750mg BID will follow up Consultation Date/Type/Reason Admit Date/Time Oct 18, 2018 at 07:52 Initial Consult Date 10/21/18 Type of Consult NEPHROLOGY Requesting Provider: MAGDI EDWARDS MD Date/Time of Note DATE: 10/30/18 TIME: 12:37 Exam/Review of Systems Exam Vitals Vital Signs Date Temp Pulse Resp B/P (MAP) Pulse Ox O2 O2 Flow FiO2 Time Delivery Rate 10/30/18 61 12:10 10/30/18 98.7 18 131/61 94 11:28 (84) 10/29/18 Room Air 15:27 Intake and Output 10/29/18 10/29/18 10/30/18 1515:00 23:00 07:00 IntakeIntake Total 1227.5 ml 400 ml OutputOutput Total 750 ml 1600 ml BalanceBalance 477.5 ml -1200 ml Exam Constitutional: alert , no distress, following commands Head: normocephalic Respiratory: clear to auscultation, normal air movement Cardiovascular: regular rate and rhythm (S1-S2 heard) Gastrointestinal: soft, non-tender, bowel sounds Extremities: edema Results Result Diagram: 10/30/18 0533 10/30/18 0533 Results 24hrs Laboratory Tests Test 10/29/18 17:07 10/29/18 22:12 10/30/18 05:33 10/30/18 07:40 Bedside Glucose 111 151 131 White Blood Count 5.9 Red Blood Count 2.93 L Hemoglobin 9.2 L Hematocrit 27.7 L Mean Corpuscular 94.5 Volume Mean Corpuscular 31.4 Hemoglobin Mean Corpuscular 33.2 Hemoglobin Concent Red Cell 14.3 Distribution Width Platelet Count 308 Mean Platelet Volume 9.7 Immature 0.500 H Granulocytes % Neutrophils % 74.3 Lymphocytes % 14.9 L Monocytes % 6.8 Eosinophils % 3.2 Basophils % 0.3 Nucleated Red Blood 0.0 Cells % Immature 0.030 Granulocytes # Neutrophils # 4.4 Lymphocytes # 0.9 Monocytes # 0.4 Eosinophils # 0.2 Basophils # 0.0 Nucleated Red Blood 0.0 Cells # Sodium Level 139 Potassium Level 3.8 Chloride Level 102 Carbon Dioxide Level 28 Anion Gap 9 Blood Urea Nitrogen 12 Creatinine 0.91 Est Glomerular Filtrat Rate mL/min Glucose Level 118 Calcium Level 8.6 Test 10/30/18 11:39 Bedside Glucose 207 Medications Medication Current Medications Ondansetron HCl (Zofran Inj) 4 mg Q4H PRN IV NAUSEA AND/OR VOMITING Last administered on 10/19/18 21:53; Admin Dose 4 MG; Start 10/18/18 at 08:30 Hydralazine HCl (Apresoline) 20 mg Q6H PRN IV sbp>160,dbp>95 Last administered on 10/24/18at 20:35; Admin Dose 20 MG; Start 10/18/18 at 08:30 Insulin Aspart (Novolog Insulin Pen) NOVOLOG *MILD* ALGORITHM WITH MEALS BEDTIME SC Last administered on 10/30/18at 11:44; Admin Dose 2 UNIT; Start 10/18/18 at 11:30 Atorvastatin Calcium (Lipitor) 40 mg HS PO Last administered on 10/29/18at 22:06; Admin Dose 40 MG; Start 10/18/18 at 21:00 Morphine Sulfate (morphine) 2 mg Q4H PRN IV SEVERE PAIN LEVEL 7-10; Start 10/18/18 at 21:00 Miscellaneous Information 1 ea NOTE XX ; Start 10/19/18 at 08:30 Glucose (Glutose) 15 gm Q15M PRN PO DECREASED GLUCOSE; Start 10/19/18 at 08:30 Glucose (Glutose) 22.5 gm Q15M PRN PO DECREASED GLUCOSE; Start 10/19/18 at 08:30 Dextrose (D50w Syringe) 25 ml Q15M PRN IV DECREASED GLUCOSE; Start 10/19/18 at 08:30 Dextrose (D50w Syringe) 50 ml Q15M PRN IV DECREASED GLUCOSE; Start 10/19/18 at 08:30 Glucagon (Glucagen) 1 mg Q15M PRN IM DECREASED GLUCOSE; Start 10/19/18 at 08:30 Glucose (Glutose) 15 gm Q15M PRN BUCCAL DECREASED GLUCOSE; Start 10/19/18 at 08:30 Carvedilol (Coreg) 6.25 mg BID PO Last administered on 10/30/18 08:12; Admin Dose 6.25 MG; Start 10/20/18 at 21:00 Brimonidine Tartrate (Alphagan P 0.15%) 1 drop BID BOTH EYES Last administered on 10/30/18 09:24; Admin Dose 1 DROP; Start 10/20/18 at 21:00 Eye Lubricant (Artificial Tears Oph) 1 drop QID BOTH EYES Last administered on 10/30/18 09:24; Admin Dose 1 DROP; Start 10/20/18 at 18:30 Fluticasone Propionate (Flonase 0.05% Nasal) 1 spray BID NASAL Last administered on 10/30/18 09:24; Admin Dose 1 SPRAY; Start 10/21/18 at 09:00 Sucralfate (Carafate Susp) 1 gm QID PO Last administered on 10/30/18 08:10; Admin Dose 1 GM; Start 10/21/18 at 19:00 IV Flush (NS 10 ml) 10 ml PRN PRN IV IV PROTOCOL; Start 10/22/18 at 12:00 Pantoprazole (Protonix Tab) 40 mg BID@0800,1600 PO Last administered on 10/30/18 08:10; Admin Dose 40 MG; Start 10/23/18 at 16:00 Losartan Potassium (Cozaar) 50 mg BID PO Last administered on 10/30/18 08:11; Admin Dose 50 MG; Start 10/27/18 at 09:00 Amlodipine Besylate (Norvasc) 10 mg DAILY PO Last administered on 10/30/18 08:11; Admin Dose 10 MG; Start 10/27/18 at 09:00 Levetiracetam 750 mg/Dextrose 107.5 ml @ 430 mls/hr Q12 IVPB Last administered on 10/30/18 09:24; Admin Dose 430 MLS/HR; Start 10/27/18 at 09:00 Diazepam (Valium) 5 mg Q4 PRN IV SEIZURES; Start 10/26/18 at 21:00 Amiodarone HCl (Cordarone) 200 mg DAILY PO ; Start 10/31/18 at 09:00 RICK ESCAMILLA MD Oct 30, 2018 12:37
[2018-10-30] MEDS: ATORVASTATIN 40 MG TAB PO SCH (20:53)
--- NOTE | 2018-10-30 20:56 | PN ---
Date/Time of Note Date/Time of Note DATE: 10/30/18 TIME: 20:56 Assessment/Plan VTE Prophylaxis Risk score (from Nsg)>0 risk: 7 SCD applied (from Nsg): Yes Lines/Catheters IV Catheter Type (from Nrsg): PICC Line Central line still needed: Yes Urinary Cath still in place: Yes Assessment/Plan Assessment/Plan - Possible breakthrough seizure, continue Keppra at increased dose. MRI which was negative for acute stroke. Status post spinal tap follow-up on CSF culture. Dr Rodriguez is following in neurology consultation. - S/p upper gastrointestinal bleed due to bleeding duodenal ulcer. Continue Protonix and Carafate Dr. Centeno is following in GI. S/p EGD on 10/18/2018 with notion of duodenal ulcer with large amount of clots. Status post EGD on 10/21/2018 with impression of duodenal ulcer with stigmata of recent bleeding, status post biopsies which are negative. - Anemia of acute blood loss, s/p blood transfusion, monitor H&H. - Acute kidney injury. Dr. Tate is following in nephrology consultation. - UTI due to E. coli. S/p treatment with Rocephin. - Hx of cerebrovascular accident with left hemiparesis. Hold off on antiplatelet or anticoagulation due to active gastrointestinal bleed. - Hypertension. Continue IV hydralazine on p.r.n. basis. - PAF currently in sinus rhythm, no anticoagulation due to acute GI bleed. - Cardiomyopathy wit EF of 40%. Further recommendations based on clinical coarse. Plan of care discussed with Dr Cruz. Result Diagram: 10/30/18 0533 10/30/1833 Results 24hrs Laboratory Tests Test 10/29/18 22:12 10/30/18 05:33 10/30/18 07:40 10/30/18 11:39 Bedside Glucose 151 131 207 White Blood Count 5.9 Red Blood Count 2.93 L Hemoglobin 9.2 L Hematocrit 27.7 L Mean Corpuscular 94.5 Volume Mean Corpuscular 31.4 Hemoglobin Mean Corpuscular 33.2 Hemoglobin Concent Red Cell 14.3 Distribution Width Platelet Count 308 Mean Platelet Volume 9.7 Immature 0.500 H Granulocytes % Neutrophils % 74.3 Lymphocytes % 14.9 L Monocytes % 6.8 Eosinophils % 3.2 Basophils % 0.3 Nucleated Red Blood 0.0 Cells % Immature 0.030 Granulocytes # Neutrophils # 4.4 Lymphocytes # 0.9 Monocytes # 0.4 Eosinophils # 0.2 Basophils # 0.0 Nucleated Red Blood 0.0 Cells # Sodium Level 139 Potassium Level 3.8 Chloride Level 102 Carbon Dioxide Level 28 Anion Gap 9 Blood Urea Nitrogen 12 Creatinine 0.91 Est Glomerular Filtrat Rate mL/min Glucose Level 118 Calcium Level 8.6 Test 10/30/18 17:15 10/30/18 20:51 Bedside Glucose 135 199 Exam/Review of Systems Exam Vitals Vital Signs Date Temp Pulse Resp B/P (MAP) Pulse Ox O2 O2 Flow FiO2 Time Delivery Rate 10/30/18 64 16:09 10/30/18 97.9 17 161/70 95 15:45 (100) 10/29/18 Room Air 15:27 Intake and Output 10/29/18 10/29/18 10/30/18 1515:00 23:00 07:00 IntakeIntake Total 1227.5 ml 400 ml OutputOutput Total 750 ml 1600 ml BalanceBalance 477.5 ml -1200 ml Results Results 24hrs Laboratory Tests Test 10/29/18 22:12 10/30/18 05:33 10/30/18 07:40 10/30/18 11:39 Bedside Glucose 151 131 207 White Blood Count 5.9 Red Blood Count 2.93 L Hemoglobin 9.2 L Hematocrit 27.7 L Mean Corpuscular 94.5 Volume Mean Corpuscular 31.4 Hemoglobin Mean Corpuscular 33.2 Hemoglobin Concent Red Cell 14.3 Distribution Width Platelet Count 308 Mean Platelet Volume 9.7 Immature 0.500 H Granulocytes % Neutrophils % 74.3 Lymphocytes % 14.9 L Monocytes % 6.8 Eosinophils % 3.2 Basophils % 0.3 Nucleated Red Blood 0.0 Cells % Immature 0.030 Granulocytes # Neutrophils # 4.4 Lymphocytes # 0.9 Monocytes # 0.4 Eosinophils # 0.2 Basophils # 0.0 Nucleated Red Blood 0.0 Cells # Sodium Level 139 Potassium Level 3.8 Chloride Level 102 Carbon Dioxide Level 28 Anion Gap 9 Blood Urea Nitrogen 12 Creatinine 0.91 Est Glomerular Filtrat Rate mL/min Glucose Level 118 Calcium Level 8.6 Test 10/30/18 17:15 10/30/18 20:51 Bedside Glucose 135 199 Medications Medication Current Medications Ondansetron HCl (Zofran Inj) 4 mg Q4H PRN IV NAUSEA AND/OR VOMITING Last administered on 10/19/18 21:53; Admin Dose 4 MG; Start 10/18/18 at 08:30 Hydralazine HCl (Apresoline) 20 mg Q6H PRN IV sbp>160,dbp>95 Last administered on 10/24/18 20:35; Admin Dose 20 MG; Start 10/18/18 at 08:30 Insulin Aspart (Novolog Insulin Pen) NOVOLOG *MILD* ALGORITHM WITH MEALS BEDTIME SC Last administered on 10/30/18 11:44; Admin Dose 2 UNIT; Start 10/18/18 at 11:30 Atorvastatin Calcium (Lipitor) 40 mg HS PO Last administered on 10/29/18 22:06; Admin Dose 40 MG; Start 10/18/18 at 21:00 Morphine Sulfate (morphine) 2 mg Q4H PRN IV SEVERE PAIN LEVEL 7-10; Start 10/18/18 at 21:00 Miscellaneous Information 1 ea NOTE XX ; Start 10/19/18 at 08:30 Glucose (Glutose) 15 gm Q15M PRN PO DECREASED GLUCOSE; Start 10/19/18 at 08:30 Glucose (Glutose) 22.5 gm Q15M PRN PO DECREASED GLUCOSE; Start 10/19/18 at 08:30 Dextrose (D50w Syringe) 25 ml Q15M PRN IV DECREASED GLUCOSE; Start 10/19/18 at 08:30 Dextrose (D50w Syringe) 50 ml Q15M PRN IV DECREASED GLUCOSE; Start 10/19/18 at 08:30 Glucagon (Glucagen) 1 mg Q15M PRN IM DECREASED GLUCOSE; Start 10/19/18 at 08:30 Glucose (Glutose) 15 gm Q15M PRN BUCCAL DECREASED GLUCOSE; Start 10/19/18 at 08:30 Carvedilol (Coreg) 6.25 mg BID PO Last administered on 10/30/18 08:12; Admin Dose 6.25 MG; Start 10/20/18 at 21:00 Brimonidine Tartrate (Alphagan P 0.15%) 1 drop BID BOTH EYES Last administered on 10/30/18 09:24; Admin Dose 1 DROP; Start 10/20/18 at 21:00 Eye Lubricant (Artificial Tears Oph) 1 drop QID BOTH EYES Last administered on 10/30/18 17:16; Admin Dose 1 DROP; Start 10/20/18 at 18:30 Fluticasone Propionate (Flonase 0.05% Nasal) 1 spray BID NASAL Last administered on 10/30/18 09:24; Admin Dose 1 SPRAY; Start 10/21/18 at 09:00 Sucralfate (Carafate Susp) 1 gm QID PO Last administered on 10/30/18 17:16; Admin Dose 1 GM; Start 10/21/18 at 19:00 IV Flush (NS 10 ml) 10 ml PRN PRN IV IV PROTOCOL; Start 10/22/18 at 12:00 Pantoprazole (Protonix Tab) 40 mg BID@0800,1600 PO Last administered on 10/30/18 15:40; Admin Dose 40 MG; Start 10/23/18 at 16:00 Losartan Potassium (Cozaar) 50 mg BID PO Last administered on 10/30/18 08:11; Admin Dose 50 MG; Start 10/27/18 at 09:00 Amlodipine Besylate (Norvasc) 10 mg DAILY PO Last administered on 10/30/18 08:11; Admin Dose 10 MG; Start 10/27/18 at 09:00 Levetiracetam 750 mg/Dextrose 107.5 ml @ 430 mls/hr Q12 IVPB Last administered on 10/30/18 09:24; Admin Dose 430 MLS/HR; Start 10/27/18 at 09:00 Diazepam (Valium) 5 mg Q4 PRN IV SEIZURES; Start 10/26/18 at 21:00 Amiodarone HCl (Cordarone) 200 mg DAILY PO ; Start 10/31/18 at 09:00 DANO MILLER Oct 30, 2018 20:56
[2018-10-31] VITALS (9 sets, daily range): BP systolic 118–163; BP diastolic 56–72; PULSE 59–87; RESP 18–20
--- NOTE | 2018-10-31 05:31 | HKNOTE ---
DATE OF SERVICE: REFERRING PHYSICIAN: Magdi Cruz MD Thank you for asking me to see the patient with you. HISTORY OF PRESENT ILLNESS: The patient is a 78-year-old status post seizure activity in which the p atient increased her Keppra to 750 mg twice a day as well as diazepam 5 mg every 4 hours as needed fo r seizure activity in which the patient responded well for this. MEDICATIONS: The patient's current medications include: 1. Keppra 750 mg twice a day. 2. Diazepam 5 mg every 4 hours as needed. 3. Amlodipine 10 mg once a day. 4. Cozaar 50 mg once a day. 5. Zestril 5 mg once a day. 6. Protonix 40 mg once a day. 7. Carafate 1 gram q.i.d. 8. Coreg 6.25 mg once a day. 9. Zofran 4 mg every 4 hours. PHYSICAL EXAMINATION: GENERAL: Today, the patient is alert, awake, oriented, following simple commands. CRANIAL NERVES: Cranial nerve II: Pupils are equal on both sides, reactive to light. Cranial nerve s III, IV, and : Extraocular muscles are intact without nystagmus. Cranial nerve V: Equal sensat ion to face. Cranial nerve VII: Decreased nasolabial fold on the left side. Cranial nerve VIII: D ecreased hearing bilaterally. Cranial IX and X: Elevates palate. Cranial nerve XI: Elevates shoul ton, 5/5. Cranial nerve XII: With straight tongue. MOTOR: Left side is 1/5, right side 4/5. Sensation decreased in the left side for light touch and t emperature. COORDINATION: [id number] test intact on the right side. Left side with weakness. HEART: Regular rate and rhythm. No murmur, no gallop. ABDOMEN: Soft, relaxed, nondistended. No tenderness. LUNGS: Equal breath sounds. ASSESSMENT AND PLAN: 1. The patient is a 78-year-old status post seizure disorder. Keep the patient under Keppra 750 mg twice a day and we will continue the patient on diazepam 5 mg every 4 hours as needed for seizure act ivity. 2. Underlying GI bleed in which the patient is followed with the Protonix and Carafate. 3. History of hemiplegia. Keep the patient under deep venous thrombosis prophylaxis and stress ulce r prophylaxis. 4. Hypertension. Keep the blood pressure at the level of 140/90. 5. Right middle cerebral artery ischemic stroke; however, because the patient has a GI bleed, we can not start her in medication, which was put on hold for the stroke prophylaxis. Again, thank you, Dr. Cruz, for asking me to see the patient with you. Dictated By: ZECHARIAH SMILEY MD NA/NTS Conf#: [id number] DID#: [id number] CC: MAGDI CRUZ MD;*EndCC*
[2018-10-31] MEDS: hydrALAzine 20 MG INJ IV PRN (05:35)
[2018-10-31] MEDS: INSULIN ASPART [NOVOLOG] 3 ML PEN SC SCH ×4 (07:51→20:17)
[2018-10-31] MEDS: PANTOPRAZOLE (EC) 40 MG TAB PO SCH ×2 (08:11→16:56)
[2018-10-31] MEDS: SUCRALFATE (100 MG/ML) 10ML CUP PO SCH ×4 (08:12→20:16)
[2018-10-31] MEDS: AMIODARONE 200 MG TAB PO SCH (08:13)
[2018-10-31] MEDS: AMLODIPINE 10 MG TAB PO SCH (08:13)
[2018-10-31] MEDS: LOSARTAN 50 MG TAB PO SCH ×2 (08:13→20:16)
[2018-10-31] MEDS: ARTIFICIAL TEARS 15 ML OPH BOTH EYES SCH ×4 (08:14→20:16)
[2018-10-31] MEDS: FLUTICASONE 0.05% 16 GM NAS SPRAY NASAL SCH ×2 (08:15→20:16)
[2018-10-31] MEDS: BRIMONIDINE 0.15% 5 ML OPH BOTH EYES SCH ×2 (08:15→20:17)
[2018-10-31] MEDS: LEVETIRACETAM IV 750 MG in DEXTROSE 5% 100 ML IVPB SCH ×2 (10:09→21:17)
--- NOTE | 2018-10-31 16:25 | CONS ---
Assessment/Plan Assessment/Plan Assessment/Plan (Daily) 1. acute hyperkalemia- Resolved 2. acute Prerenal azotemia from Upper GI bleeding- Improved, BUN/Cr improved to normal 3. acute Upper GI bleeding s/p EGD 4. History of CVA 5. Left vertebral artery stenosis 6. H/o Hypertension 7. H/o Diabetes 8. H/o History of cardiomyopathy, current echocardiogram with ejection fraction 55% 9. H/o Paroxysmal atrial fibrillation 10. Hypernatremia Plan: s/p GI work up and EGD for upper GI bleeding- EGD showed Duodenal ulcer with stigmata of recent bleeding. no active bleeding , Hb 8.9 today, BUN/Cr 8/0.9- other electrolytes stable- no labs today for review yet Amlodipine 10mg po daily for HTN IV keprra 750mg BID will follow up Consultation Date/Type/Reason Admit Date/Time Oct 18, 2018 at 07:52 Initial Consult Date 10/21/18 Type of Consult NEPHROLOGY Requesting Provider: MAGDI EDWARDS MD Date/Time of Note DATE: 10/31/18 TIME: 16:24 Exam/Review of Systems Exam Vitals Vital Signs Date Temp Pulse Resp B/P (MAP) Pulse Ox O2 O2 Flow FiO2 Time Delivery Rate 10/31/18 98.3 69 18 158/68 96 Room Air 15:08 (98) Intake and Output 10/30/18 10/30/18 10/31/18 1515:00 23:00 07:00 IntakeIntake Total 107.5 ml 827.5 ml 400 ml OutputOutput Total 1850 ml 1200 ml BalanceBalance 107.5 ml -1022.5 ml -800 ml Exam Constitutional: alert, well developed Respiratory: decreased Bs at bases, no wheezing Cardiovascular: nl pulses, other (s1s2) Gastrointestinal: soft, non-tender Musculoskeletal: muscle weakness Extremities: normal pulses Neurological: other (alert/repsonsive) Results Result Diagram: 10/31/18 0433 10/30/18 0533 Results 24hrs Laboratory Tests Test 10/30/18 17:15 10/30/18 20:51 10/31/18 04:33 10/31/18 07:49 Bedside Glucose 135 199 138 White Blood Count 5.4 Red Blood Count 2.83 L Hemoglobin 8.9 L Hematocrit 26.6 L Mean Corpuscular 94.0 Volume Mean Corpuscular 31.4 Hemoglobin Mean Corpuscular 33.5 Hemoglobin Concent Red Cell 14.0 Distribution Width Platelet Count 312 Mean Platelet Volume 9.6 Immature 0.400 Granulocytes % Neutrophils % 68.1 Lymphocytes % 20.9 Monocytes % 5.6 Eosinophils % 4.3 Basophils % 0.7 Nucleated Red Blood 0.0 Cells % Immature 0.020 Granulocytes # Neutrophils # 3.7 Lymphocytes # 1.1 Monocytes # 0.3 Eosinophils # 0.2 Basophils # 0.0 Nucleated Red Blood 0.0 Cells # Test 10/31/18 11:45 Bedside Glucose 208 Medications Medication Current Medications Ondansetron HCl (Zofran Inj) 4 mg Q4H PRN IV NAUSEA AND/OR VOMITING Last administered on 10/19/18at 21:53; Admin Dose 4 MG; Start 10/18/18 at 08:30 Hydralazine HCl (Apresoline) 20 mg Q6H PRN IV sbp>160,dbp>95 Last administered on 10/31/18at 05:35; Admin Dose 20 MG; Start 10/18/18 at 08:30 Insulin Aspart (Novolog Insulin Pen) NOVOLOG *MILD* ALGORITHM WITH MEALS BED TIME SC Last administered on 10/31/18at 11:52; Admin Dose 2 UNIT; Start 10/18/18 at 11:30 Atorvastatin Calcium (Lipitor) 40 mg HS PO Last administered on 10/30/18at 20:53; Admin Dose 40 MG; Start 10/18/18 at 21:00 Morphine Sulfate (morphine) 2 mg Q4H PRN IV SEVERE PAIN LEVEL 7-10; Start 10/18/18 at 21:00 Miscellaneous Information 1 ea NOTE XX ; Start 10/19/18 at 08:30 Glucose (Glutose) 15 gm Q15M PRN PO DECREASED GLUCOSE; Start 10/19/18 at 08:30 Glucose (Glutose) 22.5 gm Q15M PRN PO DECREASED GLUCOSE; Start 10/19/18 at 08:30 Dextrose (D50w Syringe) 25 ml Q15M PRN IV DECREASED GLUCOSE; Start 10/19/18 at 08:30 Dextrose (D50w Syringe) 50 ml Q15M PRN IV DECREASED GLUCOSE; Start 10/19/18 at 08:30 Glucagon (Glucagen) 1 mg Q15M PRN IM DECREASED GLUCOSE; Start 10/19/18 at 08:30 Glucose (Glutose) 15 gm Q15M PRN BUCCAL DECREASED GLUCOSE; Start 10/19/18 at 08:30 Carvedilol (Coreg) 6.25 mg BID PO Last administered on 10/31/18 08:12; Admin Dose 6.25 MG; Start 10/20/18 at 21:00 Brimonidine Tartrate (Alphagan P 0.15%) 1 drop BID BOTH EYES Last administered on 10/31/18 08:15; Admin Dose 1 DROP; Start 10/20/18 at 21:00 Eye Lubricant (Artificial Tears Oph) 1 drop QID BOTH EYES Last administered on 10/31/18 12:21; Admin Dose 1 DROP; Start 10/20/18 at 18:30 Fluticasone Propionate (Flonase 0.05% Nasal) 1 spray BID NASAL Last administered on 10/31/18 08:15; Admin Dose 1 SPRAY; Start 10/21/18 at 09:00 Sucralfate (Carafate Susp) 1 gm QID PO Last administered on 10/31/18 12:20; Admin Dose 1 GM; Start 10/21/18 at 19:00 IV Flush (NS 10 ml) 10 ml PRN PRN IV IV PROTOCOL; Start 10/22/18 at 12:00 Pantoprazole (Protonix Tab) 40 mg BID@0800,1600 PO Last administered on 10/31/18 08:11; Admin Dose 40 MG; Start 10/23/18 at 16:00 Losartan Potassium (Cozaar) 50 mg BID PO Last administered on 10/31/18 08:13; Admin Dose 50 MG; Start 10/27/18 at 09:00 Amlodipine Besylate (Norvasc) 10 mg DAILY PO Last administered on 10/31/18 08:13; Admin Dose 10 MG; Start 10/27/18 at 09:00 Levetiracetam 750 mg/Dextrose 107.5 ml @ 430 mls/hr Q12 IVPB Last administered on 10/31/18 10:09; Admin Dose 430 MLS/HR; Start 10/27/18 at 09:00 Diazepam (Valium) 5 mg Q4 PRN IV SEIZURES; Start 10/26/18 at 21:00 Amiodarone HCl (Cordarone) 200 mg DAILY PO Last administered on 10/31/18at 08:13; Admin Dose 200 MG; Start 10/31/18 at 09:00 RICK ESCAMILLA MD Oct 31, 2018 16:25
--- NOTE | 2018-10-31 16:38 | PN ---
Date/Time of Note Date/Time of Note DATE: 10/31/18 TIME: 16:38 Assessment/Plan VTE Prophylaxis Risk score (from Nsg)>0 risk: 9 SCD applied (from Nsg): Yes Lines/Catheters IV Catheter Type (from Nrsg): PICC Line Central line still needed: Yes Urinary Cath still in place: Yes Reason Cath still needed: urinary retention Assessment/Plan Assessment/Plan - Possible breakthrough seizure, continue Keppra at increased dose. MRI which was negative for acute stroke. Status post spinal tap follow-up on CSF culture. Dr Rodriguez is following in neurology consultation. - S/p upper gastrointestinal bleed due to bleeding duodenal ulcer. Continue Protonix and Carafate Dr. Centeno is following in GI. S/p EGD on 10/18/2018 with notion of duodenal ulcer with large amount of clots. Status post EGD on 10/21/2018 with impression of duodenal ulcer with stigmata of recent bleeding, status post biopsies which are negative. - Anemia of acute blood loss, s/p blood transfusion, monitor H&H. - Acute kidney injury. Dr. Tate is following in nephrology consultation. - UTI due to E. coli. S/p treatment with Rocephin. - Hx of cerebrovascular accident with left hemiparesis. Hold off on antiplatelet or anticoagulation due to active gastrointestinal bleed. - Hypertension. Continue IV hydralazine on p.r.n. basis. - PAF currently in sinus rhythm, no anticoagulation due to acute GI bleed. - Cardiomyopathy wit EF of 40%. Further recommendations based on clinical coarse. Plan of care discussed with Dr Cruz. Result Diagram: 10/31/18 0433 10/30/18 0533 Results 24hrs Laboratory Tests Test 10/30/18 17:15 10/30/18 20:51 10/31/18 04:33 10/31/18 07:49 Bedside Glucose 135 199 138 White Blood Count 5.4 Red Blood Count 2.83 L Hemoglobin 8.9 L Hematocrit 26.6 L Mean Corpuscular 94.0 Volume Mean Corpuscular 31.4 Hemoglobin Mean Corpuscular 33.5 Hemoglobin Concent Red Cell 14.0 Distribution Width Platelet Count 312 Mean Platelet Volume 9.6 Immature 0.400 Granulocytes % Neutrophils % 68.1 Lymphocytes % 20.9 Monocytes % 5.6 Eosinophils % 4.3 Basophils % 0.7 Nucleated Red Blood 0.0 Cells % Immature 0.020 Granulocytes # Neutrophils # 3.7 Lymphocytes # 1.1 Monocytes # 0.3 Eosinophils # 0.2 Basophils # 0.0 Nucleated Red Blood 0.0 Cells # Test 10/31/18 11:45 Bedside Glucose 208 Exam/Review of Systems Exam Vitals Vital Signs Date Temp Pulse Resp B/P (MAP) Pulse Ox O2 O2 Flow FiO2 Time Delivery Rate 10/31/18 69 16:29 10/31/18 98.3 18 158/68 96 Room Air 15:08 (98) Intake and Output 10/30/18 10/30/18 10/31/18 1515:00 23:00 07:00 IntakeIntake Total 107.5 ml 827.5 ml 400 ml OutputOutput Total 1850 ml 1200 ml BalanceBalance 107.5 ml -1022.5 ml -800 ml Results Results 24hrs Laboratory Tests Test 10/30/18 17:15 10/30/18 20:51 10/31/18 04:33 10/31/18 07:49 Bedside Glucose 135 199 138 White Blood Count 5.4 Red Blood Count 2.83 L Hemoglobin 8.9 L Hematocrit 26.6 L Mean Corpuscular 94.0 Volume Mean Corpuscular 31.4 Hemoglobin Mean Corpuscular 33.5 Hemoglobin Concent Red Cell 14.0 Distribution Width Platelet Count 312 Mean Platelet Volume 9.6 Immature 0.400 Granulocytes % Neutrophils % 68.1 Lymphocytes % 20.9 Monocytes % 5.6 Eosinophils % 4.3 Basophils % 0.7 Nucleated Red Blood 0.0 Cells % Immature 0.020 Granulocytes # Neutrophils # 3.7 Lymphocytes # 1.1 Monocytes # 0.3 Eosinophils # 0.2 Basophils # 0.0 Nucleated Red Blood 0.0 Cells # Test 10/31/18 11:45 Bedside Glucose 208 Medications Medication Current Medications Ondansetron HCl (Zofran Inj) 4 mg Q4H PRN IV NAUSEA AND/OR VOMITING Last administered on 10/19/18at 21:53; Admin Dose 4 MG; Start 10/18/18 at 08:30 Hydralazine HCl (Apresoline) 20 mg Q6H PRN IV sbp>160,dbp>95 Last administered on 10/31/18at 05:35; Admin Dose 20 MG; Start 10/18/18 at 08:30 Insulin Aspart (Novolog Insulin Pen) NOVOLOG *MILD* ALGORITHM WITH MEALS BEDTIME SC Last administered on 10/31/18 11:52; Admin Dose 2 UNIT; Start 10/18/18 at 11:30 Atorvastatin Calcium (Lipitor) 40 mg HS PO Last administered on 10/30/18 20:53; Admin Dose 40 MG; Start 10/18/18 at 21:00 Morphine Sulfate (morphine) 2 mg Q4H PRN IV SEVERE PAIN LEVEL 7-10; Start 10/18/18 at 21:00 Miscellaneous Information 1 ea NOTE XX ; Start 10/19/18 at 08:30 Glucose (Glutose) 15 gm Q15M PRN PO DECREASED GLUCOSE; Start 10/19/18 at 08:30 Glucose (Glutose) 22.5 gm Q15M PRN PO DECREASED GLUCOSE; Start 10/19/18 at 08:30 Dextrose (D50w Syringe) 25 ml Q15M PRN IV DECREASED GLUCOSE; Start 10/19/18 at 08:30 Dextrose (D50w Syringe) 50 ml Q15M PRN IV DECREASED GLUCOSE; Start 10/19/18 at 08:30 Glucagon (Glucagen) 1 mg Q15M PRN IM DECREASED GLUCOSE; Start 10/19/18 at 08:30 Glucose (Glutose) 15 gm Q15M PRN BUCCAL DECREASED GLUCOSE; Start 10/19/18 at 08:30 Carvedilol (Coreg) 6.25 mg BID PO Last administered on 10/31/18 08:12; Admin Dose 6.25 MG; Start 10/20/18 at 21:00 Brimonidine Tartrate (Alphagan P 0.15%) 1 drop BID BOTH EYES Last administered on 10/31/18 08:15; Admin Dose 1 DROP; Start 10/20/18 at 21:00 Eye Lubricant (Artificial Tears Oph) 1 drop QID BOTH EYES Last administered on 10/31/18 12:21; Admin Dose 1 DROP; Start 10/20/18 at 18:30 Fluticasone Propionate (Flonase 0.05% Nasal) 1 spray BID NASAL Last administered on 10/31/18 08:15; Admin Dose 1 SPRAY; Start 10/21/18 at 09:00 Sucralfate (Carafate Susp) 1 gm QID PO Last administered on 10/31/18 12:20; Admin Dose 1 GM; Start 10/21/18 at 19:00 IV Flush (NS 10 ml) 10 ml PRN PRN IV IV PROTOCOL; Start 10/22/18 at 12:00 Pantoprazole (Protonix Tab) 40 mg BID@0800,1600 PO Last administered on 10/31/18 08:11; Admin Dose 40 MG; Start 10/23/18 at 16:00 Losartan Potassium (Cozaar) 50 mg BID PO Last administered on 10/31/18 08:13; Admin Dose 50 MG; Start 10/27/18 at 09:00 Amlodipine Besylate (Norvasc) 10 mg DAILY PO Last administered on 10/31/18 08:13; Admin Dose 10 MG; Start 10/27/18 at 09:00 Levetiracetam 750 mg/Dextrose 107.5 ml @ 430 mls/hr Q12 IVPB Last administered on 10/31/18 10:09; Admin Dose 430 MLS/HR; Start 10/27/18 at 09:00 Diazepam (Valium) 5 mg Q4 PRN IV SEIZURES; Start 10/26/18 at 21:00 Amiodarone HCl (Cordarone) 200 mg DAILY PO Last administered on 10/31/18 08:13; Admin Dose 200 MG; Start 10/31/18 at 09:00 DANO MILLER Oct 31, 2018 16:38
[2018-10-31] MEDS: ATORVASTATIN 40 MG TAB PO SCH (20:16)
[2018-11-01] VITALS (10 sets, daily range): BP systolic 119–159; BP diastolic 57–72; PULSE 57–70; RESP 17–20
--- NOTE | 2018-11-01 07:44 | HKNOTE ---
DATE OF SERVICE: HISTORY OF PRESENT ILLNESS: The patient is a 78-year-old status post history of a stroke, complicate d by seizure in which we increased her Keppra to 750 mg twice a day and Diazepam 5 mg every 4 hours a s needed for seizure activity. CURRENT MEDICATIONS: 1. Keppra 750 mg twice a day. 2. Diazepam 5 mg every 4 hours. 3. Amlodipine 10 mg once a day. 4. Cozaar 50 mg once a day. 5. Zestril 5 mg once a day. 6. Protonix 40 mg once a day. 7. Carafate 1 gram q.i.d. 8. Coreg 6.25 mg once a day. 9. Zofran 4 mg every 4 hours. PHYSICAL EXAMINATION: GENERAL: Today, the patient is alert, awake, oriented, following simple commands. CRANIAL NERVES: Cranial nerve II: Pupils equal both sides, reactive to light. Cranial nerves III, IV and : Extraocular muscles are intact without nystagmus. Cranial nerve V: Equal sensation to f dale. Cranial nerve XII: Decreased nasolabial fold on the left side. Cranial nerve VIII: Decreased hearing bilaterally. Cranial nerve X: Elevates palate. Cranial nerve XI: Elevates shoulder 5/5. Cranial nerve XII: Straight tongue. MOTOR: Left side with weakness. Right side 4+/5. SENSATION: Decreased on the left side for light touch and temperature. COORDINATION: [id number] test intact. HEART: Regular rate and rhythm. LUNGS: Equal breath sounds. ABDOMEN: Soft, relaxed, nondistended, nontender. ASSESSMENT AND PLAN: 1. The patient is a 78-year-old status post seizure. Continue the patient Keppra 750 mg. Keep the patient under seizure precaution. Continue the patient Diazepam 5 mg every 4 hours as needed for sei zure activity in which the family does not like Ativan for prevention, so will keep her on diazepam. 2. Underlying GI bleed in which the patient is off stroke medication because of that. 3. History of left hemiplegia. Follow up the patient with physical therapy. 4. Electrolyte imbalance and renal insufficiency with improvement. 5. Status post right middle cerebral artery stroke. We will keep the patient under deep venous thro mbosis prophylaxis and decubitus ulcer prophylaxis. Dictated By: ZECHARIAH JUNIOR/GRACE Conf#: [id number] [facility]#: [id number] CC: MAGDI EDWARDS MD;*EndCC*
[2018-11-01] MEDS: INSULIN ASPART [NOVOLOG] 3 ML PEN SC SCH ×4 (07:55→21:00)
[2018-11-01] MEDS: PANTOPRAZOLE (EC) 40 MG TAB PO SCH ×2 (08:34→17:22)
[2018-11-01] MEDS: SUCRALFATE (100 MG/ML) 10ML CUP PO SCH ×4 (08:34→21:13)
[2018-11-01] MEDS: FLUTICASONE 0.05% 16 GM NAS SPRAY NASAL SCH ×2 (08:36→21:15)
[2018-11-01] MEDS: ARTIFICIAL TEARS 15 ML OPH BOTH EYES SCH ×4 (08:36→21:15)
[2018-11-01] MEDS: BRIMONIDINE 0.15% 5 ML OPH BOTH EYES SCH ×2 (08:37→21:15)
[2018-11-01] MEDS: AMLODIPINE 10 MG TAB PO SCH (08:37)
[2018-11-01] MEDS: LOSARTAN 50 MG TAB PO SCH ×2 (08:38→21:13)
[2018-11-01] MEDS: AMIODARONE 200 MG TAB PO SCH (08:38)
[2018-11-01] MEDS: LEVETIRACETAM IV 750 MG in DEXTROSE 5% 100 ML IVPB SCH ×2 (09:11→21:15)
--- NOTE | 2018-11-01 11:51 | CONS ---
Assessment/Plan Assessment/Plan Assessment/Plan (Daily) 1. acute hyperkalemia- Improved 2. acute Prerenal azotemia from Upper GI bleeding 3. acute Upper GI bleeding 4. History of CVA 5. Left vertebral artery stenosis 6. H/o Hypertension 7. H/o Diabetes 8. H/o History of cardiomyopathy, current echocardiogram with ejection fraction 55% 9. H/o Paroxysmal atrial fibrillation 10. Hypernatremia Plan: s/p GI work up and EGD for upper GI bleeding, Hb 9.4 today, BUN/Cr 12/0.91, other electrolyte stable- no chemistry today to review yet Amlodipine 10mg po daily for HTN IV keprra 750mg BID will follow up Consultation Date/Type/Reason Admit Date/Time Oct 18, 2018 at 07:52 Initial Consult Date 10/21/18 Type of Consult NEPHROLOGY Requesting Provider: MAGDI EDWARDS MD Date/Time of Note DATE: 11/01/18 TIME: 11:51 Exam/Review of Systems Exam Vitals Vital Signs Date Temp Pulse Resp B/P (MAP) Pulse Ox O2 O2 Flow FiO2 Time Delivery Rate 11/01/18 98.4 61 18 119/60 94 10:56 (79) 10/31/18 Room Air 15:08 Intake and Output 10/31/18 10/31/18 11/01/18 1515:00 23:00 07:00 IntakeIntake Total 600 ml 480 ml OutputOutput Total 1000 ml 1200 ml BalanceBalance -400 ml -720 ml Exam Constitutional: alert , no distress, following commands Head: normocephalic Respiratory: clear to auscultation, normal air movement Cardiovascular: regular rate and rhythm (S1-S2 heard) Gastrointestinal: soft, non-tender, bowel sounds Extremities: edema Results Result Diagram: 11/01/18 0522 10/30/18 0533 Results 24hrs Laboratory Tests Test 10/31/18 16:58 10/31/18 20:10 11/01/18 05:22 11/01/18 07:53 Bedside Glucose 137 145 130 White Blood Count 5.8 Red Blood Count 2.99 L Hemoglobin 9.4 L Hematocrit 28.3 L Mean Corpuscular 94.6 Volume Mean Corpuscular 31.4 Hemoglobin Mean Corpuscular 33.2 Hemoglobin Concent Red Cell 14.2 Distribution Width Platelet Count 290 Mean Platelet Volume 9.7 Immature 0.300 Granulocytes % Neutrophils % 70.8 Lymphocytes % 18.2 Monocytes % 5.5 Eosinophils % 4.3 Basophils % 0.9 Nucleated Red Blood 0.0 Cells % Immature 0.020 Granulocytes # Neutrophils # 4.1 Lymphocytes # 1.1 Monocytes # 0.3 Eosinophils # 0.3 Basophils # 0.1 Nucleated Red Blood 0.0 Cells # Medications Medication Current Medications Ondansetron HCl (Zofran Inj) 4 mg Q4H PRN IV NAUSEA AND/OR VOMITING Last administered on 10/19/18at 21:53; Admin Dose 4 MG; Start 10/18/18 at 08:30 Hydralazine HCl (Apresoline) 20 mg Q6H PRN IV sbp>160,dbp>95 Last administered on 10/31/18at 05:35; Admin Dose 20 MG; Start 10/18/18 at 08:30 Insulin Aspart (Novolog Insulin Pen) NOVOLOG *MILD* ALGORITHM WITH MEALS BEDTIM E SC Last administered on 10/31/18at 11:52; Admin Dose 2 UNIT; Start 10/18/18 at 11:30 Atorvastatin Calcium (Lipitor) 40 mg HS PO Last administered on 10/31/18at 20:16; Admin Dose 40 MG; Start 10/18/18 at 21:00 Morphine Sulfate (morphine) 2 mg Q4H PRN IV SEVERE PAIN LEVEL 7-10; Start 10/18/18 at 21:00 Miscellaneous Information 1 ea NOTE XX ; Start 10/19/18 at 08:30 Glucose (Glutose) 15 gm Q15M PRN PO DECREASED GLUCOSE; Start 10/19/18 at 08:30 Glucose (Glutose) 22.5 gm Q15M PRN PO DECREASED GLUCOSE; Start 10/19/18 at 08:30 Dextrose (D50w Syringe) 25 ml Q15M PRN IV DECREASED GLUCOSE; Start 10/19/18 at 08:30 Dextrose (D50w Syringe) 50 ml Q15M PRN IV DECREASED GLUCOSE; Start 10/19/18 at 08:30 Glucagon (Glucagen) 1 mg Q15M PRN IM DECREASED GLUCOSE; Start 10/19/18 at 08:30 Glucose (Glutose) 15 gm Q15M PRN BUCCAL DECREASED GLUCOSE; Start 10/19/18 at 08:30 Carvedilol (Coreg) 6.25 mg BID PO Last administered on 11/01/18 08:38; Admin Dose 6.25 MG; Start 10/20/18 at 21:00 Brimonidine Tartrate (Alphagan P 0.15%) 1 drop BID BOTH EYES Last administered on 11/01/18 08:37; Admin Dose 1 DROP; Start 10/20/18 at 21:00 Eye Lubricant (Artificial Tears Oph) 1 drop QID BOTH EYES Last administered on 11/01/18 08:36; Admin Dose 1 DROP; Start 10/20/18 at 18:30 Fluticasone Propionate (Flonase 0.05% Nasal) 1 spray BID NASAL Last administered on 11/01/18 08:36; Admin Dose 1 SPRAY; Start 10/21/18 at 09:00 Sucralfate (Carafate Susp) 1 gm QID PO Last administered on 11/01/18 08:34; Admin Dose 1 GM; Start 10/21/18 at 19:00 IV Flush (NS 10 ml) 10 ml PRN PRN IV IV PROTOCOL; Start 10/22/18 at 12:00 Pantoprazole (Protonix Tab) 40 mg BID@0800,1600 PO Last administered on 11/01/18 08:34; Admin Dose 40 MG; Start 10/23/18 at 16:00 Losartan Potassium (Cozaar) 50 mg BID PO Last administered on 11/01/18 08:38; Admin Dose 50 MG; Start 10/27/18 at 09:00 Amlodipine Besylate (Norvasc) 10 mg DAILY PO Last administered on 11/01/18 08:37; Admin Dose 10 MG; Start 10/27/18 at 09:00 Levetiracetam 750 mg/Dextrose 107.5 ml @ 430 mls/hr Q12 IVPB Last administered on 11/01/18 09:11; Admin Dose 430 MLS/HR; Start 10/27/18 at 09:00 Diazepam (Valium) 5 mg Q4 PRN IV SEIZURES; Start 10/26/18 at 21:00 Amiodarone HCl (Cordarone) 200 mg DAILY PO Last administered on 11/01/18 08:38; Admin Dose 200 MG; Start 10/31/18 at 09:00 RICK ESCAMILLA MD Nov 01, 2018 11:51
--- NOTE | 2018-11-01 13:10 | PN ---
Date/Time of Note Date/Time of Note DATE: 11/01/18 TIME: 13:10 Assessment/Plan VTE Prophylaxis Risk score (from Nsg)>0 risk: 9 SCD applied (from Nsg): Yes Lines/Catheters IV Catheter Type (from Nrsg): PICC Line Urinary Cath still in place: Yes Reason Cath still needed: urinary retention Assessment/Plan Assessment/Plan - Possible breakthrough seizure, continue Keppra at increased dose. MRI which was negative for acute stroke. Status post spinal tap follow-up on CSF culture. Dr Rodriguez is following in neurology consultation. - S/p upper gastrointestinal bleed due to bleeding duodenal ulcer. Continue Protonix and Carafate Dr. Centeno is following in GI. S/p EGD on 10/18/2018 with notion of duodenal ulcer with large amount of clots. Status post EGD on 10/21/2018 with impression of duodenal ulcer with stigmata of recent bleeding, status post biopsies which are negative. - Anemia of acute blood loss, s/p blood transfusion, monitor H&H. - Acute kidney injury. Dr. Tate is following in nephrology consultation. - UTI due to E. coli. S/p treatment with Rocephin. - Hx of cerebrovascular accident with left hemiparesis. Hold off on antiplatelet or anticoagulation due to active gastrointestinal bleed. - Hypertension. Continue IV hydralazine on p.r.n. basis. - PAF currently in sinus rhythm, no anticoagulation due to acute GI bleed. - Cardiomyopathy wit EF of 40%. Further recommendations based on clinical coarse. Plan of care discussed with Dr Cruz. Result Diagram: 11/01/18 0522 10/30/18 0533 Results 24hrs Laboratory Tests Test 10/31/18 16:58 10/31/18 20:10 11/01/18 05:22 11/01/18 07:53 Bedside Glucose 137 145 130 White Blood Count 5.8 Red Blood Count 2.99 L Hemoglobin 9.4 L Hematocrit 28.3 L Mean Corpuscular 94.6 Volume Mean Corpuscular 31.4 Hemoglobin Mean Corpuscular 33.2 Hemoglobin Concent Red Cell 14.2 Distribution Width Platelet Count 290 Mean Platelet Volume 9.7 Immature 0.300 Granulocytes % Neutrophils % 70.8 Lymphocytes % 18.2 Monocytes % 5.5 Eosinophils % 4.3 Basophils % 0.9 Nucleated Red Blood 0.0 Cells % Immature 0.020 Granulocytes # Neutrophils # 4.1 Lymphocytes # 1.1 Monocytes # 0.3 Eosinophils # 0.3 Basophils # 0.1 Nucleated Red Blood 0.0 Cells # Test 11/01/18 11:57 Bedside Glucose 197 Exam/Review of Systems Exam Vitals Vital Signs Date Temp Pulse Resp B/P (MAP) Pulse Ox O2 O2 Flow FiO2 Time Delivery Rate 11/01/18 57 12:21 11/01/18 98.4 18 119/60 94 10:56 (79) 10/31/18 Room Air 15:08 Intake and Output 10/31/18 10/31/18 11/01/18 1515:00 23:00 07:00 IntakeIntake Total 600 ml 480 ml OutputOutput Total 1000 ml 1200 ml BalanceBalance -400 ml -720 ml Results Results 24hrs Laboratory Tests Test 10/31/18 16:58 10/31/18 20:10 11/01/18 05:22 11/01/18 07:53 Bedside Glucose 137 145 130 White Blood Count 5.8 Red Blood Count 2.99 L Hemoglobin 9.4 L Hematocrit 28.3 L Mean Corpuscular 94.6 Volume Mean Corpuscular 31.4 Hemoglobin Mean Corpuscular 33.2 Hemoglobin Concent Red Cell 14.2 Distribution Width Platelet Count 290 Mean Platelet Volume 9.7 Immature 0.300 Granulocytes % Neutrophils % 70.8 Lymphocytes % 18.2 Monocytes % 5.5 Eosinophils % 4.3 Basophils % 0.9 Nucleated Red Blood 0.0 Cells % Immature 0.020 Granulocytes # Neutrophils # 4.1 Lymphocytes # 1.1 Monocytes # 0.3 Eosinophils # 0.3 Basophils # 0.1 Nucleated Red Blood 0.0 Cells # Test 11/01/18 11:57 Bedside Glucose 197 Medications Medication Current Medications Ondansetron HCl (Zofran Inj) 4 mg Q4H PRN IV NAUSEA AND/OR VOMITING Last administered on 10/19/18at 21:53; Admin Dose 4 MG; Start 10/18/18 at 08:30 Hydralazine HCl (Apresoline) 20 mg Q6H PRN IV sbp>160,dbp>95 Last administered on 10/31/18at 05:35; Admin Dose 20 MG; Start 10/18/18 at 08:30 Insulin Aspart (Novolog Insulin Pen) NOVOLOG *MILD* ALGORITHM WITH MEALS BEDTIME SC Last administered on 11/01/18 12:01; Admin Dose 2 UNIT; Start 10/18/18 at 11:30 Atorvastatin Calcium (Lipitor) 40 mg HS PO Last administered on 10/31/18 20:16; Admin Dose 40 MG; Start 10/18/18 at 21:00 Morphine Sulfate (morphine) 2 mg Q4H PRN IV SEVERE PAIN LEVEL 7-10; Start 10/18/18 at 21:00 Miscellaneous Information 1 ea NOTE XX ; Start 10/19/18 at 08:30 Glucose (Glutose) 15 gm Q15M PRN PO DECREASED GLUCOSE; Start 10/19/18 at 08:30 Glucose (Glutose) 22.5 gm Q15M PRN PO DECREASED GLUCOSE; Start 10/19/18 at 08:30 Dextrose (D50w Syringe) 25 ml Q15M PRN IV DECREASED GLUCOSE; Start 10/19/18 at 08:30 Dextrose (D50w Syringe) 50 ml Q15M PRN IV DECREASED GLUCOSE; Start 10/19/18 at 08:30 Glucagon (Glucagen) 1 mg Q15M PRN IM DECREASED GLUCOSE; Start 10/19/18 at 08:30 Glucose (Glutose) 15 gm Q15M PRN BUCCAL DECREASED GLUCOSE; Start 10/19/18 at 08:30 Carvedilol (Coreg) 6.25 mg BID PO Last administered on 11/01/18 08:38; Admin Dose 6.25 MG; Start 10/20/18 at 21:00 Brimonidine Tartrate (Alphagan P 0.15%) 1 drop BID BOTH EYES Last administered on 11/01/18 08:37; Admin Dose 1 DROP; Start 10/20/18 at 21:00 Eye Lubricant (Artificial Tears Oph) 1 drop QID BOTH EYES Last administered on 11/01/18 12:40; Admin Dose 1 DROP; Start 10/20/18 at 18:30 Fluticasone Propionate (Flonase 0.05% Nasal) 1 spray BID NASAL Last administered on 11/01/18 08:36; Admin Dose 1 SPRAY; Start 10/21/18 at 09:00 Sucralfate (Carafate Susp) 1 gm QID PO Last administered on 11/01/18 12:39; Admin Dose 1 GM; Start 10/21/18 at 19:00 IV Flush (NS 10 ml) 10 ml PRN PRN IV IV PROTOCOL; Start 10/22/18 at 12:00 Pantoprazole (Protonix Tab) 40 mg BID@0800,1600 PO Last administered on 11/01/18 08:34; Admin Dose 40 MG; Start 10/23/18 at 16:00 Losartan Potassium (Cozaar) 50 mg BID PO Last administered on 11/01/18 08:38; Admin Dose 50 MG; Start 10/27/18 at 09:00 Amlodipine Besylate (Norvasc) 10 mg DAILY PO Last administered on 11/01/18 08:37; Admin Dose 10 MG; Start 10/27/18 at 09:00 Levetiracetam 750 mg/Dextrose 107.5 ml @ 430 mls/hr Q12 IVPB Last administered on 11/01/18 09:11; Admin Dose 430 MLS/HR; Start 10/27/18 at 09:00 Diazepam (Valium) 5 mg Q4 PRN IV SEIZURES; Start 10/26/18 at 21:00 Amiodarone HCl (Cordarone) 200 mg DAILY PO Last administered on 11/01/18 08:38; Admin Dose 200 MG; Start 10/31/18 at 09:00 DANO MILLER Nov 01, 2018 13:10
[2018-11-01] MEDS: ATORVASTATIN 40 MG TAB PO SCH (21:13)
[2018-11-02] VITALS (10 sets, daily range): BP systolic 122–170; BP diastolic 58–73; PULSE 55–69; RESP 18–20
--- NOTE | 2018-11-02 03:42 | CONS ---
DATE OF ADMISSION: 10/18/2018 DATE OF CONSULTATION: HISTORY OF PRESENT ILLNESS: The patient is a 78-year-old lady, who has an old left hemiplegia, strok e, seizure activity, admitted with GI bleed with some seizure activity in which her medication was __ ___. The medication was adjusted to Keppra 750 mg twice a day as well as diazepam 5 mg every 4 hours as needed. CURRENT MEDICATIONS: Include: 1. Amiodarone 200 mg once a day. 2. Cozaar 50 mg once a day. 3. Norvasc 10 mg once a day. 4. Keppra 750 mg twice a day. 5. Diazepam 5 mg every 4 hours as needed for seizure. 6. Protonix 40 mg once a day. 7. Carafate 1 gram 4 times a day. 8. Coreg 6.25 mg once a day. 9. Hydralazine 20 mg every 6 hours as needed. 10. Zofran 4 mg every 4 hours as needed. 11. Morphine 2 mg every 4 hours as needed. 12. Lipitor 40 mg once a day. PHYSICAL EXAMINATION: GENERAL: Today, the patient is alert, awake and follows simple commands. CRANIAL NERVES: Cranial nerve II: Pupils equal both sides, reactive to light. Cranial nerves III, IV and : Extraocular muscles are intact. No nystagmus. Cranial nerve V: Equal sensation to face . Cranial nerve VII: Decreased nasolabial fold on the left side. Cranial nerve VIII: Decreased he aring bilaterally. Cranial IX and X: Elevates palate. Cranial nerve XI: Elevates shoulder 5/5. C ranial nerve XII: With straight tongue. MOTOR: Left side was 1/5, right side was 4/5. Sensation decreased in the left side for light touch and temperature. COORDINATION: [id number] test is intact on the right side. Left-sided weakness. HEART: Regular rate and rhythm. LUNGS: Equal breath sounds. ABDOMEN: Soft, relaxed, nondistended, no tenderness. ASSESSMENT AND PLAN: 1. The patient is a 78-year-old status post seizure disorder, in which the patient is stable on Kepp ra 750 mg twice a day and keep the patient on diazepam 5 mg every 4 hours as needed. 2. Status post left-sided hemiplegia. We will keep the patient under deep venous thrombosis prophyl axis and decubitus ulcer prophylaxis and follow up the patient with physical therapy. 3. Underlying gastrointestinal bleed, in which we hold the medication for stroke because of the blee ding. 4. Status post electrolyte imbalance and renal insufficiency. Again, thank you for asking me to see the patient with you. Dictated By: ZECHARIAH SMILEY MD NA/NTS Conf#: [id number] DID#: [id number] CC: MAGDI EDWARDS MD;*EndCC*
[2018-11-02] MEDS: INSULIN ASPART [NOVOLOG] 3 ML PEN SC SCH ×4 (08:00→20:57)
[2018-11-02] MEDS: PANTOPRAZOLE (EC) 40 MG TAB PO SCH ×2 (08:07→16:53)
[2018-11-02] MEDS: AMIODARONE 200 MG TAB PO SCH (08:08)
[2018-11-02] MEDS: AMLODIPINE 10 MG TAB PO SCH (08:09)
[2018-11-02] MEDS: LOSARTAN 50 MG TAB PO SCH ×2 (08:09→20:57)
[2018-11-02] MEDS: SUCRALFATE (100 MG/ML) 10ML CUP PO SCH ×4 (08:09→20:54)
[2018-11-02] MEDS: FLUTICASONE 0.05% 16 GM NAS SPRAY NASAL SCH ×2 (08:11→20:55)
[2018-11-02] MEDS: BRIMONIDINE 0.15% 5 ML OPH BOTH EYES SCH ×2 (08:12→20:55)
[2018-11-02] MEDS: ARTIFICIAL TEARS 15 ML OPH BOTH EYES SCH ×4 (08:13→20:55)
[2018-11-02] MEDS: LEVETIRACETAM IV 750 MG in DEXTROSE 5% 100 ML IVPB SCH (09:00)
--- NOTE | 2018-11-02 11:45 | CONS ---
Assessment/Plan Assessment/Plan Hospital Course (Demo Recall) Upper GI bleed History of CVA Left vertebral artery stenosis Hypertension Cerebral artery disease Diabetes History of cardiomyopathy, current echocardiogram with ejection fraction 55% Paroxysmal atrial fibrillation -Patient with upper GI bleed and thought secondary to NSAID use and Plavix. Patient was on Plavix because of known cerebrovascular disease and history of CVA on previous admissions. On hold at the current time -Patient with paroxysmal atrial fibrillation noted on telemetry and currently sinus rhythm. Given recent GI bleed, cannot tolerate anticoagulation. Continue beta-katherine, continue amiodarone daily -Maintain potassium above 4.0 and magnesium above 2.0. Consultation Date/Type/Reason Admit Date/Time Oct 18, 2018 at 07:52 Initial Consult Date 10/18/18 Type of Consult Cardiology Requesting Provider: MAGDI EDWARDS MD Date/Time of Note DATE: 11/02/18 TIME: 11:44 24 HR Interval Summary Free Text/Dictation Denies chest pain, shortness of breath Exam/Review of Systems Vital Signs Vitals Vital Signs Date Temp Pulse Resp B/P (MAP) Pulse Ox O2 O2 Flow FiO2 Time Delivery Rate 11/02/18 69 08:00 11/02/18 98.3 18 145/65 96 Room Air 07:52 (91) Intake and Output 11/01/18 11/01/18 11/02/18 1414:59 22:59 06:59 IntakeIntake Total 907.5 ml 600 ml OutputOutput Total 900 ml 1650 ml BalanceBalance 7.5 ml -1050 ml Exam Constitutional: alert, oriented (No apparent distress) Head: normocephalic Respiratory: other (Coarse breath sounds bilaterally, no wheezing) Cardiovascular: regular rate and rhythm (S1-S2 heard) Gastrointestinal: soft, non-tender, bowel sounds Extremities: edema (Trace) Labs Result Diagram: 11/02/18 0556 11/02/18 0556 Results 24hrs Laboratory Tests Test 11/01/18 11:57 11/01/18 17:21 11/01/18 21:11 11/02/18 05:56 Bedside Glucose 197 141 152 White Blood Count 4.4 #L Red Blood Count 2.94 L Hemoglobin 9.2 L Hematocrit 27.8 L Mean Corpuscular 94.6 Volume Mean Corpuscular 31.3 Hemoglobin Mean Corpuscular 33.1 Hemoglobin Concent Red Cell Distribution 14.0 Width Platelet Count 290 Mean Platelet Volume 9.5 Immature Granulocytes 0.700 H % Neutrophils % 61.5 Lymphocytes % 24.0 Monocytes % 7.7 Eosinophils % 5.0 Basophils % 1.1 Nucleated Red Blood 0.0 Cells % Immature Granulocytes 0.030 # Neutrophils # 2.7 Lymphocytes # 1.1 Monocytes # 0.3 Eosinophils # 0.2 Basophils # 0.1 Nucleated Red Blood 0.0 Cells # Sodium Level 138 Potassium Level 3.5 Chloride Level 104 Carbon Dioxide Level 28 Anion Gap 6 Blood Urea Nitrogen 11 Creatinine 0.92 Est Glomerular Filtrat Rate mL/min Glucose Level 143 Calcium Level 8.7 Magnesium Level 1.8 Test 11/02/18 07:42 Bedside Glucose 134 Medications Medications Current Medications Ondansetron HCl (Zofran Inj) 4 mg Q4H PRN IV NAUSEA AND/OR VOMITING Last administered on 10/19/18at 21:53; Admin Dose 4 MG; Start 10/18/18 at 08:30 Hydralazine HCl (Apresoline) 20 mg Q6H PRN IV sbp>160,dbp>95 Last administered on 10/31/18at 05:35; Admin Dose 20 MG; Start 10/18/18 at 08:30 Insulin Aspart (Novolog Insulin Pen) NOVOLOG *MILD* ALGORITHM WITH MEALS BEDTIME SC Last administered on 11/01/18at 17:35; Admin Dose 1 UNIT; Start 10/18/18 at 11:30 Atorvastatin Calcium (Lipitor) 40 mg HS PO Last administered on 11/01/18at 21:13; Admin Dose 40 MG; Start 10/18/18 at 21:00 Morphine Sulfate (morphine) 2 mg Q4H PRN IV SEVERE PAIN LEVEL 7-10; Start 10/18/18 at 21:00 Miscellaneous Information 1 ea NOTE XX ; Start 10/19/18 at 08:30 Glucose (Glutose) 15 gm Q15M PRN PO DECREASED GLUCOSE; Start 10/19/18 at 08:30 Glucose (Glutose) 22.5 gm Q15M PRN PO DECREASED GLUCOSE; Start 10/19/18 at 08:30 Dextrose (D50w Syringe) 25 ml Q15M PRN IV DECREASED GLUCOSE; Start 10/19/18 at 08:30 Dextrose (D50w Syringe) 50 ml Q15M PRN IV DECREASED GLUCOSE; Start 10/19/18 at 08:30 Glucagon (Glucagen) 1 mg Q15M PRN IM DECREASED GLUCOSE; Start 10/19/18 at 08:30 Glucose (Glutose) 15 gm Q15M PRN BUCCAL DECREASED GLUCOSE; Start 10/19/18 at 08:30 Carvedilol (Coreg) 6.25 mg BID PO Last administered on 11/01/18 21:14; Admin Dose 6.25 MG; Start 10/20/18 at 21:00 Brimonidine Tartrate (Alphagan P 0.15%) 1 drop BID BOTH EYES Last administered on 11/02/18 08:12; Admin Dose 1 DROP; Start 10/20/18 at 21:00 Eye Lubricant (Artificial Tears Oph) 1 drop QID BOTH EYES Last administered on 11/02/18 08:13; Admin Dose 1 DROP; Start 10/20/18 at 18:30 Fluticasone Propionate (Flonase 0.05% Nasal) 1 spray BID NASAL Last administered on 11/02/18 08:11; Admin Dose 1 SPRAY; Start 10/21/18 at 09:00 Sucralfate (Carafate Susp) 1 gm QID PO Last administered on 11/02/18 08:09; Admin Dose 1 GM; Start 10/21/18 at 19:00 IV Flush (NS 10 ml) 10 ml PRN PRN IV IV PROTOCOL; Start 10/22/18 at 12:00 Pantoprazole (Protonix Tab) 40 mg BID@0800,1600 PO Last administered on 9at 08:07; Admin Dose 40 MG; Start 10/23/18 at 16:00 Losartan Potassium (Cozaar) 50 mg BID PO Last administered on 11/02/18 08:09; Admin Dose 50 MG; Start 10/27/18 at 09:00 Amlodipine Besylate (Norvasc) 10 mg DAILY PO Last administered on 11/02/18 08:09; Admin Dose 10 MG; Start 10/27/18 at 09:00 Levetiracetam 750 mg/Dextrose 107.5 ml @ 430 mls/hr Q12 IVPB Last administered on 11/02/18 09:00; Admin Dose 430 MLS/HR; Start 10/27/18 at 09:00 Diazepam (Valium) 5 mg Q4 PRN IV SEIZURES; Start 10/26/18 at 21:00 Amiodarone HCl (Cordarone) 200 mg DAILY PO Last administered on 11/02/18at 08:08; Admin Dose 200 MG; Start 10/31/18 at 09:00 Omega Chinchilla DO Nov 02, 2018 11:45
--- NOTE | 2018-11-02 15:53 | PN ---
Date/Time of Note Date/Time of Note DATE: 11/02/18 TIME: 15:49 Assessment/Plan VTE Prophylaxis Risk score (from Ns)>0 risk: 6 SCD applied (from Ns): Yes Pharmacological prophylaxis: NA/contraindicated Pharm contraindication: bleeding Lines/Catheters IV Catheter Type (from Nrsg): PICC Line Central line still needed: Yes Urinary Cath still in place: Yes Reason Cath still needed: urinary retention Assessment/Plan Hospital Course No seizure activity per RN, continue Keppra, will change IV to p.o. in preparation for DC, hemoglobin is stable, patient denies any nausea and vomiting, however, remains generally weak, continue PT. Assessment/Plan - Possible breakthrough seizure, continue Keppra at increased dose. MRI which was negative for acute stroke. Status post spinal tap follow-up on CSF culture. Dr Rodriguez is following in neurology consultation. - S/p upper gastrointestinal bleed due to bleeding duodenal ulcer. Continue Protonix and Carafate Dr. Centeno is following in GI. S/p EGD on 10/18/2018 with notion of duodenal ulcer with large amount of clots. Status post EGD on 10/21/2018 with impression of duodenal ulcer with stigmata of recent bleeding, s tatus post biopsies which are negative. - Anemia of acute blood loss, s/p blood transfusion, monitor H&H. - Acute kidney injury. Dr. Tate is following in nephrology consultation. - UTI due to E. coli. S/p treatment with Rocephin. - Hx of cerebrovascular accident with left hemiparesis. Hold off on antiplatelet or anticoagulation due to active gastrointestinal bleed. - Hypertension. Continue IV hydralazine on p.r.n. basis. - PAF currently in sinus rhythm, no anticoagulation due to acute GI bleed. - Cardiomyopathy wit EF of 40%. Further recommendations based on clinical coarse. Plan of care discussed with Dr Cruz. Result Diagram: 11/02/18 0556 11/02/18 0556 Results 24hrs Laboratory Tests Test 11/01/18 17:21 11/01/18 21:11 11/02/18 05:56 11/02/18 07:42 Bedside Glucose 141 152 134 White Blood Count 4.4 #L Red Blood Count 2.94 L Hemoglobin 9.2 L Hematocrit 27.8 L Mean Corpuscular 94.6 Volume Mean Corpuscular 31.3 Hemoglobin Mean Corpuscular 33.1 Hemoglobin Concent Red Cell Distribution 14.0 Width Platelet Count 290 Mean Platelet Volume 9.5 Immature Granulocytes 0.700 H % Neutrophils % 61.5 Lymphocytes % 24.0 Monocytes % 7.7 Eosinophils % 5.0 Basophils % 1.1 Nucleated Red Blood 0.0 Cells % Immature Granulocytes 0.030 # Neutrophils # 2.7 Lymphocytes # 1.1 Monocytes # 0.3 Eosinophils # 0.2 Basophils # 0.1 Nucleated Red Blood 0.0 Cells # Sodium Level 138 Potassium Level 3.5 Chloride Level 104 Carbon Dioxide Level 28 Anion Gap 6 Blood Urea Nitrogen 11 Creatinine 0.92 Est Glomerular Filtrat Rate mL/min Glucose Level 143 Calcium Level 8.7 Magnesium Level 1.8 Test 11/02/18 11:39 Bedside Glucose 205 Exam/Review of Systems Exam Vitals Vital Signs Date Temp Pulse Resp B/P (MAP) Pulse Ox O2 O2 Flow FiO2 Time Delivery Rate 11/02/18 98.3 65 18 143/64 98 Room Air 15:46 (90) Intake and Output 11/01/18 11/01/18 11/02/18 1515:00 23:00 07:00 IntakeIntake Total 907.5 ml 600 ml OutputOutput Total 900 ml 1650 ml BalanceBalance 7.5 ml -1050 ml Exam Constitutional: alert, oriented Respiratory: clear to auscultation Cardiovascular: regular rate and rhythm Gastrointestinal: soft, tender Extremities: normal pulses Results Results 24hrs Laboratory Tests Test 11/01/18 17:21 11/01/18 21:11 11/02/18 05:56 11/02/18 07:42 Bedside Glucose 141 152 134 White Blood Count 4.4 #L Red Blood Count 2.94 L Hemoglobin 9.2 L Hematocrit 27.8 L Mean Corpuscular 94.6 Volume Mean Corpuscular 31.3 Hemoglobin Mean Corpuscular 33.1 Hemoglobin Concent Red Cell Distribution 14.0 Width Platelet Count 290 Mean Platelet Volume 9.5 Immature Granulocytes 0.700 H % Neutrophils % 61.5 Lymphocytes % 24.0 Monocytes % 7.7 Eosinophils % 5.0 Basophils % 1.1 Nucleated Red Blood 0.0 Cells % Immature Granulocytes 0.030 # Neutrophils # 2.7 Lymphocytes # 1.1 Monocytes # 0.3 Eosinophils # 0.2 Basophils # 0.1 Nucleated Red Blood 0.0 Cells # Sodium Level 138 Potassium Level 3.5 Chloride Level 104 Carbon Dioxide Level 28 Anion Gap 6 Blood Urea Nitrogen 11 Creatinine 0.92 Est Glomerular Filtrat Rate mL/min Glucose Level 143 Calcium Level 8.7 Magnesium Level 1.8 Test 11/02/18 11:39 Bedside Glucose 205 Medications Medication Current Medications Ondansetron HCl (Zofran Inj) 4 mg Q4H PRN IV NAUSEA AND/OR VOMITING Last administered on 10/19/18 21:53; Admin Dose 4 MG; Start 10/18/18 at 08:30 Hydralazine HCl (Apresoline) 20 mg Q6H PRN IV sbp>160,dbp>95 Last administered on 10/31/18 05:35; Admin Dose 20 MG; Start 10/18/18 at 08:30 Insulin Aspart (Novolog Insulin Pen) NOVOLOG *MILD* ALGORITHM WITH MEALS BE DTIME SC Last administered on 11/02/18 11:53; Admin Dose 2 UNIT; Start 10/18/18 at 11:30 Atorvastatin Calcium (Lipitor) 40 mg HS PO Last administered on 11/01/18at 21:13; Admin Dose 40 MG; Start 10/18/18 at 21:00 Morphine Sulfate (morphine) 2 mg Q4H PRN IV SEVERE PAIN LEVEL 7-10; Start 10/18/18 at 21:00 Miscellaneous Information 1 ea NOTE XX ; Start 10/19/18 at 08:30 Glucose (Glutose) 15 gm Q15M PRN PO DECREASED GLUCOSE; Start 10/19/18 at 08:30 Glucose (Glutose) 22.5 gm Q15M PRN PO DECREASED GLUCOSE; Start 10/19/18 at 08:30 Dextrose (D50w Syringe) 25 ml Q15M PRN IV DECREASED GLUCOSE; Start 10/19/18 at 08:30 Dextrose (D50w Syringe) 50 ml Q15M PRN IV DECREASED GLUCOSE; Start 10/19/18 at 08:30 Glucagon (Glucagen) 1 mg Q15M PRN IM DECREASED GLUCOSE; Start 10/19/18 at 08:30 Glucose (Glutose) 15 gm Q15M PRN BUCCAL DECREASED GLUCOSE; Start 10/19/18 at 08:30 Carvedilol (Coreg) 6.25 mg BID PO Last administered on 11/01/18at 21:14; Admin Dose 6.25 MG; Start 10/20/18 at 21:00 Brimonidine Tartrate (Alphagan P 0.15%) 1 drop BID BOTH EYES Last administered on 11/02/18 08:12; Admin Dose 1 DROP; Start 10/20/18 at 21:00 Eye Lubricant (Artificial Tears Oph) 1 drop QID BOTH EYES Last administered on 11/02/18 11:47; Admin Dose 1 DROP; Start 10/20/18 at 18:30 Fluticasone Propionate (Flonase 0.05% Nasal) 1 spray BID NASAL Last administered on 11/02/18 08:11; Admin Dose 1 SPRAY; Start 10/21/18 at 09:00 Sucralfate (Carafate Susp) 1 gm QID PO Last administered on 11/02/18 11:47; Admin Dose 1 GM; Start 10/21/18 at 19:00 IV Flush (NS 10 ml) 10 ml PRN PRN IV IV PROTOCOL; Start 10/22/18 at 12:00 Pantoprazole (Protonix Tab) 40 mg BID@0800,1600 PO Last administered on 11/02/18 08:07; Admin Dose 40 MG; Start 10/23/18 at 16:00 Losartan Potassium (Cozaar) 50 mg BID PO Last administered on 11/02/18 08:09; Admin Dose 50 MG; Start 10/27/18 at 09:00 Amlodipine Besylate (Norvasc) 10 mg DAILY PO Last administered on 11/02/18 08:09; Admin Dose 10 MG; Start 10/27/18 at 09:00 Levetiracetam 750 mg/Dextrose 107.5 ml @ 430 mls/hr Q12 IVPB Last administered on 11/02/18 09:00; Admin Dose 430 MLS/HR; Start 10/27/18 at 09:00 Diazepam (Valium) 5 mg Q4 PRN IV SEIZURES; Start 10/26/18 at 21:00 Amiodarone HCl (Cordarone) 200 mg DAILY PO Last administered on 11/02/18 08:08; Admin Dose 200 MG; Start 10/31/18 at 09:00 JANET FOOTE Nov 02, 2018 15:53
--- NOTE | 2018-11-02 16:49 | CONS ---
Assessment/Plan Assessment/Plan Assessment/Plan (Daily) 1. acute hyperkalemia- Improved 2. acute Prerenal azotemia from Upper GI bleeding 3. acute Upper GI bleeding 4. History of CVA 5. Left vertebral artery stenosis 6. H/o Hypertension 7. H/o Diabetes 8. H/o History of cardiomyopathy, current echocardiogram with ejection fraction 55% 9. H/o Paroxysmal atrial fibrillation 10. Hypernatremia Plan: s/p GI work up and EGD for upper GI bleeding, Hb 9.4 today, BUN/Cr 11/0.9, Na 139, other electrolyte stable Amlodipine 10mg po daily for HTN IV keprra 750mg BID will follow up Consultation Date/Type/Reason Admit Date/Time Oct 18, 2018 at 07:52 Initial Consult Date 10/21/18 Type of Consult NEPHROLOGY Requesting Provider: MAGDI EDWARDS MD Date/Time of Note DATE: 11/02/18 TIME: 16:49 Exam/Review of Systems Exam Vitals Vital Signs Date Temp Pulse Resp B/P (MAP) Pulse Ox O2 O2 Flow FiO2 Time Delivery Rate 11/02/18 98.3 65 18 143/64 98 Room Air 15:46 (90) Intake and Output 11/01/18 11/01/18 11/02/18 1515:00 23:00 07:00 IntakeIntake Total 907.5 ml 600 ml OutputOutput Total 900 ml 1650 ml BalanceBalance 7.5 ml -1050 ml Exam Constitutional: alert, well developed Respiratory: decreased Bs at bases, no wheezing Cardiovascular: nl pulses, other (s1s2) Gastrointestinal: soft, non-tender Musculoskeletal: muscle weakness Extremities: normal pulses Neurological: other (alert/repsonsive) Results Result Diagram: 11/02/18 0556 11/02/18 0556 Results 24hrs Laboratory Tests Test 11/01/18 17:21 11/01/18 21:11 11/02/18 05:56 11/02/18 07:42 Bedside Glucose 141 152 134 White Blood Count 4.4 #L Red Blood Count 2.94 L Hemoglobin 9.2 L Hematocrit 27.8 L Mean Corpuscular 94.6 Volume Mean Corpuscular 31.3 Hemoglobin Mean Corpuscular 33.1 Hemoglobin Concent Red Cell Distribution 14.0 Width Platelet Count 290 Mean Platelet Volume 9.5 Immature Granulocytes 0.700 H % Neutrophils % 61.5 Lymphocytes % 24.0 Monocytes % 7.7 Eosinophils % 5.0 Basophils % 1.1 Nucleated Red Blood 0.0 Cells % Immature Granulocytes 0.030 # Neutrophils # 2.7 Lymphocytes # 1.1 Monocytes # 0.3 Eosinophils # 0.2 Basophils # 0.1 Nucleated Red Blood 0.0 Cells # Sodium Level 138 Potassium Level 3.5 Chloride Level 104 Carbon Dioxide Level 28 Anion Gap 6 Blood Urea Nitrogen 11 Creatinine 0.92 Est Glomerular Filtrat Rate mL/min Glucose Level 143 Calcium Level 8.7 Magnesium Level 1.8 Test 11/02/18 11:39 Bedside Glucose 205 Medications Medication Current Medications Ondansetron HCl (Zofran Inj) 4 mg Q4H PRN IV NAUSEA AND/OR VOMITING Last administered on 10/19/18at 21:53; Admin Dose 4 MG; Start 10/18/18 at 08:30 Hydralazine HCl (Apresoline) 20 mg Q6H PRN IV sbp>160,dbp>95 Last administered on 10/31/18 05:35; Admin Dose 20 MG; Start 10/18/18 at 08:30 Insulin Aspart (Novolog Insulin Pen) NOVOLOG *MILD* ALGORITHM WITH MEALS BEDTIME SC Last administered on 11/02/18 11:53; Admin Dose 2 UNIT; Start 10/18/18 at 11:30 Atorvastatin Calcium (Lipitor) 40 mg HS PO Last administered on 11/01/18at 21:13; Admin Dose 40 MG; Start 10/18/18 at 21:00 Morphine Sulfate (morphine) 2 mg Q4H PRN IV SEVERE PAIN LEVEL 7-10; Start 10/18/18 at 21:00 Miscellaneous Information 1 ea NOTE XX ; Start 10/19/18 at 08:30 Glucose (Glutose) 15 gm Q15M PRN PO DECREASED GLUCOSE; Start 10/19/18 at 08:30 Glucose (Glutose) 22.5 gm Q15M PRN PO DECREASED GLUCOSE; Start 10/19/18 at 08:30 Dextrose (D50w Syringe) 25 ml Q15M PRN IV DECREASED GLUCOSE; Start 10/19/18 at 08:30 Dextrose (D50w Syringe) 50 ml Q15M PRN IV DECREASED GLUCOSE; Start 10/19/18 at 08:30 Glucagon (Glucagen) 1 mg Q15M PRN IM DECREASED GLUCOSE; Start 10/19/18 at 08:30 Glucose (Glutose) 15 gm Q15M PRN BUCCAL DECREASED GLUCOSE; Start 10/19/18 at 08:30 Carvedilol (Coreg) 6.25 mg BID PO Last administered on 11/01/18 21:14; Admin Dose 6.25 MG; Start 10/20/18 at 21:00 Brimonidine Tartrate (Alphagan P 0.15%) 1 drop BID BOTH EYES Last administered on 11/02/18 08:12; Admin Dose 1 DROP; Start 10/20/18 at 21:00 Eye Lubricant (Artificial Tears Oph) 1 drop QID BOTH EYES Last administered on 11/02/18 11:47; Admin Dose 1 DROP; Start 10/20/18 at 18:30 Fluticasone Propionate (Flonase 0.05% Nasal) 1 spray BID NASAL Last administered on 11/02/18 08:11; Admin Dose 1 SPRAY; Start 10/21/18 at 09:00 Sucralfate (Carafate Susp) 1 gm QID PO Last administered on 11/02/18 11:47; Admin Dose 1 GM; Start 10/21/18 at 19:00 IV Flush (NS 10 ml) 10 ml PRN PRN IV IV PROTOCOL; Start 10/22/18 at 12:00 Pantoprazole (Protonix Tab) 40 mg BID@0800,1600 PO Last administered on 11/02/18 08:07; Admin Dose 40 MG; Start 10/23/18 at 16:00 Losartan Potassium (Cozaar) 50 mg BID PO Last administered on 11/02/18 08:09; Admin Dose 50 MG; Start 10/27/18 at 09:00 Amlodipine Besylate (Norvasc) 10 mg DAILY PO Last administered on 11/02/18 08:09; Admin Dose 10 MG; Start 10/27/18 at 09:00 Diazepam (Valium) 5 mg Q4 PRN IV SEIZURES; Start 10/26/18 at 21:00 Amiodarone HCl (Cordarone) 200 mg DAILY PO Last administered on 11/02/18 08:08; Admin Dose 200 MG; Start 10/31/18 at 09:00 Bacitracin (Bacitracin Oint (Ud)) 1 applic ONCE ONCE TOP ; Start 11/02/18 at 17:00; Stop 11/02/18 at 17:01 Levetiracetam (Keppra) 750 mg BID PO ; Start 11/02/18 at 21:00 RICK ESCAMILLA MD Nov 02, 2018 16:49
[2018-11-02] MEDS ORDERED: BACITRACIN 0.9 GM OINT TOP ONE (17:00)
[2018-11-02] MEDS: LEVETIRACETAM 750 MG TAB PO SCH (20:56)
[2018-11-02] MEDS: ATORVASTATIN 40 MG TAB PO SCH (20:56)
[2018-11-02] MEDS: hydrALAzine 20 MG INJ IV PRN (21:11)
[2018-11-02] MEDS ORDERED: ALPRAZOLAM 0.25 MG TAB PO ONE (23:00)
[2018-11-03] VITALS (10 sets, daily range): BP systolic 119–159; BP diastolic 56–73; PULSE 58–112; RESP 17–20
--- NOTE | 2018-11-03 03:24 | HKNOTE ---
DATE OF SERVICE: HISTORY OF PRESENT ILLNESS: The patient is a 78-year-old status post left hemiplegia, stroke, seizur e activity, GI bleed in which the patient has seizure activity in which we increased her Keppra at 75 0 and we started her on Diazepam 5 mg every 4 hours as needed for seizure. CURRENT MEDICATIONS: 1. Keppra 750 mg twice daily. 2. Diazepam 5 mg every 4 hours as needed. 3. Cordarone 200 mg once a day. 4. Cozaar 50 mg once a day. 5. Norvasc 10 mg once a day. 6. Protonix 40 mg once a day. 7. Carafate 1 mg 4 times a day. 8. Coreg 6.25 mg once a day. 9. Hydralazine 20 mg every 6 hours as needed. 10. Zofran 4 mg every 4 hours as needed. 11. Morphine 2 mg every 4 hours as needed. 12. Lipitor 40 mg once a day. PHYSICAL EXAMINATION: GENERAL: Today, the patient is alert, awake, following simple commands; however, difficult to follow second or third-step commands. CRANIAL NERVES: Cranial nerve II: Pupils equal both sides, reactive to light. Cranial nerves III, IV and : Extraocular muscles are intact without nystagmus. Cranial nerve V: Equal sensation to f dale. Cranial nerve VII: Decreased nasolabial fold on the left side. Cranial nerve VIII: Decreased hearing bilaterally. Cranial IX and X: Elevates palate. Cranial XI: Elevates shoulder 5/5. Cran ial nerve XII: With straight tongue. MOTOR: Left side 1/5, right side 4+/5. Sensation decreased in the left side for light touch and tem perature. COORDINATION: [id number] test intact on the right side. Left side with weakness. HEART: Regular rate and rhythm. LUNGS: Equal breath sounds. ABDOMEN: Soft, relaxed, nondistended. No tenderness. ASSESSMENT AND PLAN: 1. The patient is 78-year-old lady with seizure disorder. Continue the patient on Keppra 750 mg twi ce a day and we will keep the patient on diazepam 5 mg every 4 hours as needed. 2. Status post left hemiplegia. Keep the patient under deep venous thrombosis prophylaxis and decub itus ulcer prophylaxis. 3. Underlying GI bleed in which we hold the medication for stroke because of the bleeding. 4. Status post hypertension. Keep the blood pressure level 140/90. 5. Dyslipidemia. Continue the patient Lipitor 40 mg once a day. Again, thank you, Dr. Cruz, for asking me to see the patient with you. Dictated By: ZECHRAIAH SMILEY MD NA/NTS Conf#: [id number] DID#: [id number] CC: MAGDI CRUZ MD;*EndCC*
[2018-11-03] MEDS: INSULIN ASPART [NOVOLOG] 3 ML PEN SC SCH ×3 (08:00→17:14)
[2018-11-03] MEDS: SUCRALFATE (100 MG/ML) 10ML CUP PO SCH ×4 (08:05→19:24)
[2018-11-03] MEDS: LEVETIRACETAM 750 MG TAB PO SCH ×2 (08:05→19:25)
[2018-11-03] MEDS: PANTOPRAZOLE (EC) 40 MG TAB PO SCH ×2 (08:05→16:58)
[2018-11-03] MEDS: AMLODIPINE 10 MG TAB PO SCH (08:06)
[2018-11-03] MEDS: LOSARTAN 50 MG TAB PO SCH ×2 (08:06→19:25)
[2018-11-03] MEDS: AMIODARONE 200 MG TAB PO SCH (08:07)
[2018-11-03] MEDS: ARTIFICIAL TEARS 15 ML OPH BOTH EYES SCH ×3 (08:11→16:59)
[2018-11-03] MEDS: FLUTICASONE 0.05% 16 GM NAS SPRAY NASAL SCH (08:11)
[2018-11-03] MEDS: BRIMONIDINE 0.15% 5 ML OPH BOTH EYES SCH (08:12)
--- NOTE | 2018-11-03 08:54 | CONS ---
Assessment/Plan Assessment/Plan Assessment/Plan (Daily) 1. acute hyperkalemia- Improved 2. acute Prerenal azotemia from Upper GI bleeding 3. acute Upper GI bleeding 4. History of CVA 5. Left vertebral artery stenosis 6. H/o Hypertension 7. H/o Diabetes 8. H/o History of cardiomyopathy, current echocardiogram with ejection fraction 55% 9. H/o Paroxysmal atrial fibrillation 10. Hypernatremia Plan: s/p GI work up and EGD for upper GI bleeding, Hb 9.4 today, BUN/Cr 11/0.9, Na 139, other electrolyte stable - d/c plan to SNF today Amlodipine 10mg po daily for HTN will follow up Consultation Date/Type/Reason Admit Date/Time Oct 18, 2018 at 07:52 Initial Consult Date 10/21/18 Type of Consult NEPHROLOGY Requesting Provider: MAGDI EDWARDS MD Date/Time of Note DATE: 11/03/18 TIME: 08:54 Exam/Review of Systems Exam Vitals Vital Signs Date Temp Pulse Resp B/P (MAP) Pulse Ox O2 O2 Flow FiO2 Time Delivery Rate 11/03/18 63 08:28 11/03/18 98.8 17 147/66 96 07:35 (93) 11/02/18 Nasal 2 22:21 Cannula Intake and Output 11/02/18 11/02/18 11/03/18 1515:00 23:00 07:00 IntakeIntake Total 107 ml 620 ml 700 ml OutputOutput Total 1800 ml 1200 ml BalanceBalance 107 ml -1180 ml -500 ml Exam Constitutional: alert , no distress, following commands Head: normocephalic Respiratory: clear to auscultation, normal air movement Cardiovascular: regular rate and rhythm (S1-S2 heard) Gastrointestinal: soft, non-tender, bowel sounds Extremities: edema Results Result Diagram: 11/03/18 0529 11/02/18 0556 Results 24hrs Laboratory Tests Test 11/02/18 11:39 11/02/18 16:52 11/02/18 20:54 11/03/18 05:29 Bedside Glucose 205 162 153 White Blood Count 4.5 L Red Blood Count 3.03 L Hemoglobin 9.4 L Hematocrit 28.8 L Mean Corpuscular Volume 95.0 Mean Corpuscular 31.0 Hemoglobin Mean Corpuscular 32.6 Hemoglobin Concent Red Cell Distribution 14.3 Width Platelet Count 310 Mean Platelet Volume 9.6 Immature Granulocytes % 0.200 Neutrophils % 66.3 Lymphocytes % 22.3 Monocytes % 6.7 Eosinophils % 3.8 Basophils % 0.7 Nucleated Red Blood 0.0 Cells % Immature Granulocytes # 0.010 Neutrophils # 3.0 Lymphocytes # 1.0 Monocytes # 0.3 Eosinophils # 0.2 Basophils # 0.0 Nucleated Red Blood 0.0 Cells # Test 11/03/18 07:52 Bedside Glucose 136 Medications Medication Current Medications Ondansetron HCl (Zofran Inj) 4 mg Q4H PRN IV NAUSEA AND/OR VOMITING Last administered on 10/19/18at 21:53; Admin Dose 4 MG; Start 10/18/18 at 08:30 Hydralazine HCl (Apresoline) 20 mg Q6H PRN IV sbp>160,dbp>95 Last administered on 11/02/18at 21:11; Admin Dose 20 MG; Start 10/18/18 at 08:30 Insulin Aspart (Novolog Insulin Pen) NOVOLOG *MILD* ALGORITHM WITH MEALS BEDTIME SC Last administered on 11/02/18at 17:21; Admin Dose 1 UNIT; Start 10/18/18 at 11:30 Atorvastatin Calcium (Lipitor) 40 mg HS PO Last administered on 11/02/18at 20:56; Admin Dose 40 MG; Start 10/18/18 at 21:00 Morphine Sulfate (morphine) 2 mg Q4H PRN IV SEVERE PAIN LEVEL 7-10; Start 10/18/18 at 21:00 Miscellaneous Information 1 ea NOTE XX ; Start 10/19/18 at 08:30 Glucose (Glutose) 15 gm Q15M PRN PO DECREASED GLUCOSE; Start 10/19/18 at 08:30 Glucose (Glutose) 22.5 gm Q15M PRN PO DECREASED GLUCOSE; Start 10/19/18 at 08:30 Dextrose (D50w Syringe) 25 ml Q15M PRN IV DECREASED GLUCOSE; Start 10/19/18 at 08:30 Dextrose (D50w Syringe) 50 ml Q15M PRN IV DECREASED GLUCOSE; Start 10/19/18 at 08:30 Glucagon (Glucagen) 1 mg Q15M PRN IM DECREASED GLUCOSE; Start 10/19/18 at 08:30 Glucose (Glutose) 15 gm Q15M PRN BUCCAL DECREASED GLUCOSE; Start 10/19/18 at 08:30 Carvedilol (Coreg) 6.25 mg BID PO Last administered on 11/03/18 08:07; Admin Dose 6.25 MG; Start 10/20/18 at 21:00 Brimonidine Tartrate (Alphagan P 0.15%) 1 drop BID BOTH EYES Last administered on 11/03/18 08:12; Admin Dose 50 DROP; Start 10/20/18 at 21:00 Eye Lubricant (Artificial Tears Oph) 1 drop QID BOTH EYES Last administered on 11/03/18 08:11; Admin Dose 1 DROP; Start 10/20/18 at 18:30 Fluticasone Propionate (Flonase 0.05% Nasal) 1 spray BID NASAL Last administ ered on 11/03/18 08:11; Admin Dose 1 SPRAY; Start 10/21/18 at 09:00 Sucralfate (Carafate Susp) 1 gm QID PO Last administered on 11/03/18 08:05; Admin Dose 1 GM; Start 10/21/18 at 19:00 IV Flush (NS 10 ml) 10 ml PRN PRN IV IV PROTOCOL; Start 10/22/18 at 12:00 Pantoprazole (Protonix Tab) 40 mg BID@0800,1600 PO Last administered on 11/03/18 08:05; Admin Dose 40 MG; Start 10/23/18 at 16:00 Losartan Potassium (Cozaar) 50 mg BID PO Last administered on 11/03/18 08:06; Admin Dose 50 MG; Start 10/27/18 at 09:00 Amlodipine Besylate (Norvasc) 10 mg DAILY PO Last administered on 11/03/18 08:06; Admin Dose 10 MG; Start 10/27/18 at 09:00 Diazepam (Valium) 5 mg Q4 PRN IV SEIZURES; Start 10/26/18 at 21:00 Amiodarone HCl (Cordarone) 200 mg DAILY PO Last administered on 11/03/18 08:07; Admin Dose 200 MG; Start 10/31/18 at 09:00 Levetiracetam (Keppra) 750 mg BID PO Last administered on 11/03/18 08:05; Admin Dose 750 MG; Start 4/1/19 at 21:00 RICK ESCAMILLA MD Nov 03, 2018 08:54
--- NOTE | 2018-11-03 13:03 | PN ---
Date/Time of Note Date/Time of Note DATE: 11/03/18 TIME: 12:57 Assessment/Plan VTE Prophylaxis Risk score (from Ns)>0 risk: 6 SCD applied (from Ns): Yes Pharmacological prophylaxis: NA/contraindicated Pharm contraindication: bleeding Lines/Catheters IV Catheter Type (from Nrsg): PICC Line Central line still needed: Yes Urinary Cath still in place: Yes Reason Cath still needed: urinary retention Assessment/Plan Hospital Course Keppra was switched to p.o., no seizure activity, patient denies any nausea and vomiting, able to tolerate diet well, complains of generalized weakness, continue PT. DC planning to group home facility when bed is available Assessment/Plan - Possible breakthrough seizure, continue Keppra at increased dose. MRI which was negative for acute stroke. Status post spinal tap follow-up on CSF culture. Dr Rodriguez is following in neurology consultation. - S/p upper gastrointestinal bleed due to bleeding duodenal ulcer. Continue Pro tonix and Carafate Dr. Centeno is following in GI. S/p EGD on 10/18/2018 with notion of duodenal ulcer with large amount of clots. Status post EGD on 10/21/2018 with impression of duodenal ulcer with stigmata of recent bleeding, status post biopsies which are negative. - Anemia of acute blood loss, s/p blood transfusion, monitor H&H. - Acute kidney injury. Dr. Tate is following in nephrology consultation. - UTI due to E. coli. S/p treatment with Rocephin. - Hx of cerebrovascular accident with left hemiparesis. Hold off on antiplatelet or anticoagulation due to active gastrointestinal bleed. - Hypertension. Continue IV hydralazine on p.r.n. basis. - PAF currently in sinus rhythm, no anticoagulation due to acute GI bleed. - Cardiomyopathy wit EF of 40%. 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 Further recommendations based on clinical coarse. Plan of care discussed with Dr Cruz. Result Diagram: 11/03/18 0529 11/02/18 0556 Results 24hrs Laboratory Tests Test 11/02/18 16:52 11/02/18 20:54 11/03/18 05:29 11/03/18 07:52 Bedside Glucose 162 153 136 White Blood Count 4.5 L Red Blood Count 3.03 L Hemoglobin 9.4 L Hematocrit 28.8 L Mean Corpuscular Volume 95.0 Mean Corpuscular 31.0 Hemoglobin Mean Corpuscular 32.6 Hemoglobin Concent Red Cell Distribution 14.3 Width Platelet Count 310 Mean Platelet Volume 9.6 Immature Granulocytes % 0.200 Neutrophils % 66.3 Lymphocytes % 22.3 Monocytes % 6.7 Eosinophils % 3.8 Basophils % 0.7 Nucleated Red Blood 0.0 Cells % Immature Granulocytes # 0.010 Neutrophils # 3.0 Lymphocytes # 1.0 Monocytes # 0.3 Eosinophils # 0.2 Basophils # 0.0 Nucleated Red Blood 0.0 Cells # Test 11/03/18 11:57 Bedside Glucose 175 Exam/Review of Systems Exam Vitals Vital Signs Date Temp Pulse Resp B/P (MAP) Pulse Ox O2 O2 Flow FiO2 Time Delivery Rate 11/03/18 58 12:18 11/03/18 98.9 18 121/56 96 11:06 (77) 11/02/18 Nasal 2 22:21 Cannula Intake and Output 11/02/18 11/02/18 11/03/18 1515:00 23:00 07:00 IntakeIntake Total 107 ml 620 ml 700 ml OutputOutput Total 1800 ml 1200 ml BalanceBalance 107 ml -1180 ml -500 ml Exam Constitutional: alert, oriented Respiratory: clear to auscultation Cardiovascular: regular rate and rhythm Gastrointestinal: soft, tender Extremities: normal pulses Results Results 24hrs Laboratory Tests Test 11/02/18 16:52 11/02/18 20:54 11/03/18 05:29 11/03/18 07:52 Bedside Glucose 162 153 136 White Blood Count 4.5 L Red Blood Count 3.03 L Hemoglobin 9.4 L Hematocrit 28.8 L Mean Corpuscular Volume 95.0 Mean Corpuscular 31.0 Hemoglobin Mean Corpuscular 32.6 Hemoglobin Concent Red Cell Distribution 14.3 Width Platelet Count 310 Mean Platelet Volume 9.6 Immature Granulocytes % 0.200 Neutrophils % 66.3 Lymphocytes % 22.3 Monocytes % 6.7 Eosinophils % 3.8 Basophils % 0.7 Nucleated Red Blood 0.0 Cells % Immature Granulocytes # 0.010 Neutrophils # 3.0 Lymphocytes # 1.0 Monocytes # 0.3 Eosinophils # 0.2 Basophils # 0.0 Nucleated Red Blood 0.0 Cells # Test 11/03/18 11:57 Bedside Glucose 175 Medications Medication Current Medications Ondansetron HCl (Zofran Inj) 4 mg Q4H PRN IV NAUSEA AND/OR VOMITING Last administered on 10/19/18 21:53; Admin Dose 4 MG; Start 10/18/18 at 08:30 Hydralazine HCl (Apresoline) 20 mg Q6H PRN IV sbp>160,dbp>95 Last administered on 11/02/18 21:11; Admin Dose 20 MG; Start 10/18/18 at 08:30 Insulin Aspart (Novolog Insulin Pen) NOVOLOG *MILD* ALGORITHM WITH MEALS BEDTIME SC Last administered on 11/03/18 12:05; Admin Dose 1 UNIT; Start 10/18/18 at 11:30 Atorvastatin Calcium (Lipitor) 40 mg HS PO Last administered on 11/02/18 20:56; Admin Dose 40 MG; Start 10/18/18 at 21:00 Morphine Sulfate (morphine) 2 mg Q4H PRN IV SEVERE PAIN LEVEL 7-10; Start 10/18/18 at 21:00 Miscellaneous Information 1 ea NOTE XX ; Start 10/19/18 at 08:30 Glucose (Glutose) 15 gm Q15M PRN PO DECREASED GLUCOSE; Start 10/19/18 at 08:30 Glucose (Glutose) 22.5 gm Q15M PRN PO DECREASED GLUCOSE; Start 10/19/18 at 08:30 Dextrose (D50w Syringe) 25 ml Q15M PRN IV DECREASED GLUCOSE; Start 10/19/18 at 08:30 Dextrose (D50w Syringe) 50 ml Q15M PRN IV DECREASED GLUCOSE; Start 10/19/18 at 08:30 Glucagon (Glucagen) 1 mg Q15M PRN IM DECREASED GLUCOSE; Start 10/19/18 at 08:30 Glucose (Glutose) 15 gm Q15M PRN BUCCAL DECREASED GLUCOSE; Start 10/19/18 at 08:30 Carvedilol (Coreg) 6.25 mg BID PO Last administered on 11/03/18 08:07; Admin Dose 6.25 MG; Start 10/20/18 at 21:00 Brimonidine Tartrate (Alphagan P 0.15%) 1 drop BID BOTH EYES Last administered on 11/03/18 08:12; Admin Dose 50 DROP; Start 10/20/18 at 21:00 Eye Lubricant (Artificial Tears Oph) 1 drop QID BOTH EYES Last administered on 11/03/18 11:58; Admin Dose 1 DROP; Start 10/20/18 at 18:30 Fluticasone Propionate (Flonase 0.05% Nasal) 1 spray BID NASAL Last administered on 11/03/18 08:11; Admin Dose 1 SPRAY; Start 10/21/18 at 09:00 Sucralfate (Carafate Susp) 1 gm QID PO Last administered on 11/03/18 11:57; Admin Dose 1 GM; Start 10/21/18 at 19:00 IV Flush (NS 10 ml) 10 ml PRN PRN IV IV PROTOCOL; Start 10/22/18 at 12:00 Pantoprazole (Protonix Tab) 40 mg BID@0800,1600 PO Last administered on 11/03/18 08:05; Admin Dose 40 MG; Start 10/23/18 at 16:00 Losartan Potassium (Cozaar) 50 mg BID PO Last administered on 11/03/18 08:06; Admin Dose 50 MG; Start 10/27/18 at 09:00 Amlodipine Besylate (Norvasc) 10 mg DAILY PO Last administered on 11/03/18 08:06; Admin Dose 10 MG; Start 10/27/18 at 09:00 Diazepam (Valium) 5 mg Q4 PRN IV SEIZURES; Start 10/26/18 at 21:00 Amiodarone HCl (Cordarone) 200 mg DAILY PO Last administered on 11/03/18 08:07; Admin Dose 200 MG; Start 10/31/18 at 09:00 Levetiracetam (Keppra) 750 mg BID PO Last administered on 11/03/18 08:05; Admin Dose 750 MG; Start 11/02/18 at 21:00 JANET FOOTE Nov 03, 2018 13:03
[2018-11-03] MEDS ORDERED: MUPIROCIN 2% 22 GM OINT TOP SCH (14:00)
[2018-11-03] MEDS: ATORVASTATIN 40 MG TAB PO SCH (19:25)
--- NOTE | 2018-11-03 20:27 | DS ---
Date/Time of Note Date/Time of Note DATE: 11/03/18 TIME: 20:25 Discharge Summary Admission/Discharge Info Admit Date/Time Oct 18, 2018 at 07:52 Discharge Date/Time Patient Condition: Stable Hx of Present Illness The patient is a 78-year-old female well known to me. The patient has history of hypertension, CVA with left-sided hemiplegia, diabetes, coronary artery di sease, cardiomyopathy with EF of 40%, also history of paroxysmal atrial tachycardia and is monitored by Dr. Powell as an outpatient. In fact, the patient was seen by Dr. Powell about 4 days ago and her cardiac status was stable. The patient also has history of osteoarthritis and had been taking Naprosyn for pain. The patient had been on Protonix for more than 1 year. The patient did not have any GI bleed or any GI symptoms and therefore, Protonix was stopped on 09/29/2018. The patient on 10/13/2018 was complaining of heartburn and Protonix was resumed at 40 mg per day. The patient also was complaining of mild dysuria and therefore, UA and C and S were sent from residential facility; however, I do not have results of those studies at this time. The patient this morning woke up with coffee-ground emesis and was feeling weak and pale. The patient was immediately sent to [facility] ER for further evaluation. The patient was picked up by paramedics. Upon arrival in ER, the patient was noted to have a hemoglobin of 7.8. Her baseline hemoglobin back in 05/2018 was 12.6. The patient was diagnosed with acute upper GI bleed and acute blood loss anemia. Dr. Centeno was called by ER physician. The patient was taken to GI lab and was noted to have probable duodenal ulcer with large amount of clots, no evidence of active bleeding. The patient was started on Protonix drip. The patient will be reevaluated in 48 to 72 hours or sooner if there is active bleeding. The patient is being admitted in ICU for close monitoring. The patient also reported mild abdominal discomfort. No reported chest pain. No reported any new focal weakness. No reported fever or chills. No reported rectal bleed. No reported dizziness or syncope. The patient has left-sided hemiplegia from previous CVA. She did not have any focal joint swelling. No reported cough. No reported any neurological deficit. Hospital Course ppra was switched to p.o., no seizure activity, patient denies any nausea and vomiting, able to tolerate diet well, complains of generalized weakness, continue PT. DC planning to residential facility when bed is available Assessment/Plan - Possible breakthrough seizure, continue Keppra at increased dose. MRI which was negative for acute stroke. Status post spinal tap follow-up, CSF culture with no growth. Dr Rodriguez is following in neurology consultation. - S/p upper gastrointestinal bleed due to bleeding duodenal ulcer. Continue Protonix and Carafate Dr. Centeno is following in GI. S/p EGD on 10/18/2018 with notion of duodenal ulcer with large amount of clots. Status post EGD on 10/21/2018 with impression of duodenal ulcer with stigmata of recent bleeding, status post biopsies which are negative. - Anemia of acute blood loss, s/p blood transfusion, monitor H&H. - Acute kidney injury. Dr. Tate is following in nephrology consultation. - UTI due to E. coli. S/p treatment with Rocephin. - Hx of cerebrovascular accident with left hemiparesis. Hold off on antiplatelet or anticoagulation due to active gastrointestinal bleed. - Hypertension. Continue IV hydralazine on p.r.n. basis. - PAF currently in sinus rhythm, no anticoagulation due to acute GI bleed. - Cardiomyopathy wit EF of 40%. 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 Plan of care discussed with Dr Cruz. Home Meds Reported Medications Acetaminophen* (Tylenol*) 325 Mg Tablet, 650 MG PO Q4H PRN for MILD PAIN LEVEL 1-3, TAB 05/19/18 Linagliptin (TRADJENTA) 5 Mg Tablet, 5 MG PO DAILY, TAB 05/19/18 Sennosides* (Senna Lax*) 8.6 Mg Tablet, 1 TAB PO DAILY, TAB 05/19/18 Pantoprazole* (Protonix*) 40 Mg Tablet.dr, 40 MG PO DAILY, TAB 05/19/18 Potassium Chloride* (K-Dur*) 20 Meq Tab.prt.sr, 40 MEQ PO DAILY, TAB.SA 05/19/18 Clopidogrel Bisulfate* (Clopidogrel Bisulfate*) 75 Mg Tablet, 75 MG PO DAILY, #30 TAB 05/19/18 Mv-Mn/FA/Vit K/Lycop/Lut/Zeaxa (Ocuvite Eye + Multi Tablet) 1 Each Tablet, 1 EACH PO DAILY, TAB 05/19/18 Amlodipine Besylate* (Norvasc*) 10 Mg Tablet, 10 MG PO DAILY, TAB 05/19/18 Hydrocodone/Acetaminophen ([place] 5-325 Tablet) 1 Each Tablet, 1 EACH PO Q8H for FOR PAIN 7-04/13, TAB 05/19/18 Naproxen* (Naproxen*) 375 Mg Tablet, 375 MG PO Q8H, TAB 05/19/18 Multivitamin with Minerals (Multivitamins with Minerals) 1 Each Tablet, 1 EACH PO DAILY, TAB 05/19/18 Magnesium Hydroxide* (Milk Of Magnesia*) 400 Mg/5 Ml Oral.susp, 30 ML PO Q24H PRN for NEEDED, ML 05/19/18 Metformin Hcl* (Metformin Hcl*) 500 Mg Tablet, 500 MG PO WITH BREAKFAST DINNE, #60 TAB 05/19/18 Magnesium Oxide* (Magnesium Oxide*) 400 Mg Tablet, 400 MG PO DAILY, TAB 05/19/18 Losartan Potassium* (Losartan Potassium*) 50 Mg Tablet, 50 MG PO BID, TAB HOLD IF SBP BELOW 110 OR AP BELOW 60 05/19/18 Loratadine* (Loratadine*) 10 Mg Tablet, 10 MG PO DAILY, #30 TAB 05/19/18 Atorvastatin* (Atorvastatin*) 80 Mg Tablet, 80 MG PO QHS, #30 TAB 05/19/18 Levetiracetam* (Keppra*) 750 Mg Tablet, 750 MG PO BID, TAB 05/19/18 Hydrochlorothiazide* (Hydrochlorothiazide*) 12.5 Mg Tablet, 12.5 MG PO DAILY, #30 TAB HOLD IF SBP BELOW 110 OR AP BELOW 60 05/19/18 Dextrose (Glucose Gel) 38 Gm Gel..gram., 15 GM PO NEEDED 05/19/18 Gabapentin* (Gabapentin*) 100 Mg Capsule, 100 MG PO Q12H, #90 CAP 05/19/18 Fluticasone Propionate (Flonase Allergy Relief) 9.9 Ml [place].susp, 1 SPRAY NASAL BID, #1 BOTTLE TO EACH NOSTRIL 05/19/18 Na Phos,M-B/Na Phos,Di-Ba (Fleet Enema Extra) 230 Ml Enema, 1 APPLIC RC Q2D PRN for NEEDED, ENEMA 05/19/18 Ferrous Sulfate* (Ferrous Sulfate*) 325 Mg [place], 325 MG PO DAILY, TAB 05/19/18 Bisacodyl* (Bisacodyl*) 10 Mg Supp, 10 MG [place] Q24H PRN for NEEDED, SUPP 05/19/18 Cranberry Extract (Cranberry) 425 Mg Capsule, 425 MG PO BID, CAP 05/19/18 Carvedilol* (Carvedilol*) 6.25 Mg Tablet, 6.25 MG PO BID, #60 TAB HOLD IF SBP BELOW 110 OR AP BELOW 60 05/19/18 Diphenhydramine Hcl* (Benadryl*) 25 Mg Cap, 25 MG PO Q6H PRN for ITCHING, CAP 05/19/18 Cholecalciferol* (Vitamin D3*) 1,000 Unit Tablet, 1000 UNIT PO BID, TAB 05/19/18 Ascorbate Calcium (Vitamin C) 500 Mg Tablet, 500 MG PO DAILY, TAB 05/19/18 Cran/Vitc/Mannose/Inulin/Brom (Uti-Stat Liquid) 3,875 Mg/30 Ml Liquid, 30 ML PO BID 05/19/18 Aspirin* (Aspirin* EC) 81 Mg Tablet.dr, 81 MG PO DAILY, TAB 05/19/18 Dextran 70/Hypromellose (Artificial Tears) 1 Each [place], 1 EACH OP QID 05/19/18 Follow-up Plan CBC in 1 week. Primary Care Provider Ji Cruz MD Time spent on discharge: > 30 minutes Pending Labs Laboratory Tests Test 11/02/18 20:54 11/03/18 05:29 11/03/18 07:52 11/03/18 11:57 Bedside 153 136 175 Glucose mg/dL (70-220) mg/dL (70-220) mg/dL (70-220) White Blood 4.5 Count 10^3/ul (4.8-1 0.8) Red Blood 3.03 Count 10^6/ul (4.20- 5.40) Hemoglobin 9.4 g/dl (12.0-16. 0) Hematocrit 28.8 % (37.0-47.0) Mean 95.0 Corpuscular fl (82.0-101.0 Volume ) Mean 31.0 Corpuscular pg (29.0-33.0) Hemoglobin Mean 32.6 Corpuscular g/dl (32.0-37. Hemoglobin Conc 0) ent Red Cell 14.3 Distribution % (11.5-14.5) Width Platelet Count 310 10^3/UL (140-4 15) Mean Platelet 9.6 Volume fl (7.4-10.4) Immature 0.200 Granulocytes % % (0.001-0.429 ) Neutrophils % 66.3 % (39.0-77.0) Lymphocytes % 22.3 % (15.0-51.0) Monocytes % 6.7 % (0.0-11.0) Eosinophils % 3.8 % (0.0-7.0) Basophils % 0.7 % (0.0-2.0) Nucleated Red 0.0 Blood Cells % /100WBC (0.0-0 .0) Immature 0.010 Granulocytes # 10^3/ul (0.0-0 .031) Neutrophils # 3.0 10^3/ul (1.6-7 .5) Lymphocytes # 1.0 10^3/ul (0.8-2 .9) Monocytes # 0.3 10^3/ul (0.3-0 .9) Eosinophils # 0.2 10^3/ul (0.0-0 .5) Basophils # 0.0 10^3/ul (0.0-0 .1) Nucleated Red 0.0 Blood Cells # 10^3/ul (0.0-0 .0) Test 11/03/18 16:54 Bedside 194 Glucose mg/dL (70-220) JANET FOOTE Nov 03, 2018 20:27
--- NOTE | 2018-11-03 21:09 | CONS ---
Assessment/Plan Assessment/Plan Hospital Course (Demo Recall) Upper GI bleed History of CVA Left vertebral artery stenosis Hypertension Cerebral artery disease Diabetes History of cardiomyopathy, current echocardiogram with ejection fraction 55% Paroxysmal atrial fibrillation -Patient with upper GI bleed and thought secondary to NSAID use and Plavix. Patient was on Plavix because of known cerebrovascular disease and history of CVA on previous admissions. On hold at the current time -Patient with paroxysmal atrial fibrillation noted on telemetry and currently sinus rhythm. Given recent GI bleed, cannot tolerate anticoagulation. Continue beta-katherine, continue amiodarone daily -Maintain potassium above 4.0 and magnesium above 2.0. -DC planning Consultation Date/Type/Reason Admit Date/Time Oct 18, 2018 at 07:52 Initial Consult Date 10/18/18 Type of Consult Cardiology Requesting Provider: MAGDI EDWARDS MD Date/Time of Note DATE: 11/03/18 TIME: 21:08 24 HR Interval Summary Free Text/Dictation no sob, cp, palp Exam/Review of Systems Vital Signs Vitals Vital Signs Date Temp Pulse Resp B/P (MAP) Pulse Ox O2 O2 Flow FiO2 Time Delivery Rate 11/03/18 98.4 67 19 159/70 94 19:15 (99) 11/02/18 Nasal 2 22:21 Cannula Intake and Output 11/02/18 11/02/18 11/03/18 1515:00 23:00 07:00 IntakeIntake Total 107 ml 620 ml 700 ml OutputOutput Total 1800 ml 1200 ml BalanceBalance 107 ml -1180 ml -500 ml Exam Constitutional: alert, oriented (nad) Head: normocephalic Respiratory: other (course bs, no wheeze) Cardiovascular: regular rate and rhythm (s1s2) Gastrointestinal: soft, non-tender, bowel sounds Extremities: edema (tr) Labs Result Diagram: 11/03/18 0529 11/02/18 0556 Results 24hrs Laboratory Tests Test 11/03/18 05:29 11/03/18 07:52 11/03/18 11:57 11/03/18 16:54 White Blood Count 4.5 L Red Blood Count 3.03 L Hemoglobin 9.4 L Hematocrit 28.8 L Mean Corpuscular Volume 95.0 Mean Corpuscular 31.0 Hemoglobin Mean Corpuscular 32.6 Hemoglobin Concent Red Cell Distribution 14.3 Width Platelet Count 310 Mean Platelet Volume 9.6 Immature Granulocytes % 0.200 Neutrophils % 66.3 Lymphocytes % 22.3 Monocytes % 6.7 Eosinophils % 3.8 Basophils % 0.7 Nucleated Red Blood 0.0 Cells % Immature Granulocytes # 0.010 Neutrophils # 3.0 Lymphocytes # 1.0 Monocytes # 0.3 Eosinophils # 0.2 Basophils # 0.0 Nucleated Red Blood 0.0 Cells # Bedside Glucose 136 175 194 Medications Medications Current Medications Ondansetron HCl (Zofran Inj) 4 mg Q4H PRN IV NAUSEA AND/OR VOMITING Last administered on 10/19/18at 21:53; Admin Dose 4 MG; Start 10/18/18 at 08:30 Hydralazine HCl (Apresoline) 20 mg Q6H PRN IV sbp>160,dbp>95 Last administered on 11/02/18at 21:11; Admin Dose 20 MG; Start 10/18/18 at 08:30 Insulin Aspart (Novolog Insulin Pen) NOVOLOG *MILD* ALGORITHM WITH MEALS BEDTIME SC Last administered on 11/03/18at 17:14; Admin Dose 2 UNIT; Start 10/18/18 at 11:30 Atorvastatin Calcium (Lipitor) 40 mg HS PO Last administered on 11/03/18 19:25; Admin Dose 40 MG; Start 10/18/18 at 21:00 Morphine Sulfate (morphine) 2 mg Q4H PRN IV SEVERE PAIN LEVEL 7-10; Start 10/18/18 at 21:00 Miscellaneous Information 1 ea NOTE XX ; Start 10/19/18 at 08:30 Glucose (Glutose) 15 gm Q15M PRN PO DECREASED GLUCOSE; Start 10/19/18 at 08:30 Glucose (Glutose) 22.5 gm Q15M PRN PO DECREASED GLUCOSE; Start 10/19/18 at 08:30 Dextrose (D50w Syringe) 25 ml Q15M PRN IV DECREASED GLUCOSE; Start 10/19/18 at 08:30 Dextrose (D50w Syringe) 50 ml Q15M PRN IV DECREASED GLUCOSE; Start 10/19/18 at 08:30 Glucagon (Glucagen) 1 mg Q15M PRN IM DECREASED GLUCOSE; Start 10/19/18 at 08:30 Glucose (Glutose) 15 gm Q15M PRN BUCCAL DECREASED GLUCOSE; Start 10/19/18 at 08:30 Carvedilol (Coreg) 6.25 mg BID PO Last administered on 11/03/18 19:25; Admin Dose 6.25 MG; Start 10/20/18 at 21:00 Brimonidine Tartrate (Alphagan P 0.15%) 1 drop BID BOTH EYES Last administered on 11/03/18 08:12; Admin Dose 50 DROP; Start 10/20/18 at 21:00 Eye Lubricant (Artificial Tears Oph) 1 drop QID BOTH EYES Last administered on 11/03/18 16:59; Admin Dose 1 DROP; Start 10/20/18 at 18:30 Fluticasone Propionate (Flonase 0.05% Nasal) 1 spray BID NASAL Last administered on 11/03/18 08:11; Admin Dose 1 SPRAY; Start 10/21/18 at 09:00 Sucralfate (Carafate Susp) 1 gm QID PO Last administered on 11/03/18 19:24; Admin Dose 1 GM; Start 10/21/18 at 19:00 IV Flush (NS 10 ml) 10 ml PRN PRN IV IV PROTOCOL; Start 10/22/18 at 12:00 Pantoprazole (Protonix Tab) 40 mg BID@0800,1600 PO Last administered on 11/03/18 16:58; Admin Dose 40 MG; Start 10/23/18 at 16:00 Losartan Potassium (Cozaar) 50 mg BID PO Last administered on 11/03/18 19:25; Admin Dose 50 MG; Start 10/27/18 at 09:00 Amlodipine Besylate (Norvasc) 10 mg DAILY PO Last administered on 11/03/18 08:06; Admin Dose 10 MG; Start 10/27/18 at 09:00 Diazepam (Valium) 5 mg Q4 PRN IV SEIZURES; Start 10/26/18 at 21:00 Amiodarone HCl (Cordarone) 200 mg DAILY PO Last administered on 11/03/18 08:07; Admin Dose 200 MG; Start 10/31/18 at 09:00 Levetiracetam (Keppra) 750 mg BID PO Last administered on 11/03/18 19:25; Admin Dose 750 MG; Start 11/02/18 at 21:00 Mupirocin (Bactroban) 1 applic BID TOP Last administered on 4/2/19at 16:58; Admin Dose 1 APPLIC; Start 11/03/18 at 14:00; Stop 11/11/18 at 13:59 Omega Chinchilla DO Nov 03, 2018 21:09
--- NOTE | 2018-11-04 03:39 | HKNOTE ---
DATE OF SERVICE: HISTORY OF PRESENT ILLNESS: The patient is a 78-year-old with a history of left hemiplegia, stroke a nd seizure activity in which the patient's medication was adjusted to Keppra 750 mg twice a day as we ll as diazepam 5 mg every 4 hours as needed for seizure activity. CURRENT MEDICATIONS: Include: 1. Keppra 750 mg twice a day. 2. Diazepam 5 mg every 4 hours as needed. 3. Cordarone 200 mg once a day. 4. Cozaar 50 mg once a day. 5. Norvasc 10 mg once a day. 6. Protonix 40 mg once a day. 7. Carafate 1 gram every 4 hours as needed. 8. Coreg 6.25 mg once a day. 9. Hydralazine 20 mg every 6 hours as needed. 10. Zofran 4 mg every 4 hours as needed. 11. Morphine 2 mg every 4 hours. 12. Lipitor 40 mg once a day. PHYSICAL EXAMINATION: GENERAL: Today, the patient is alert, awake, oriented, can follow simple commands. CRANIAL NERVES: Cranial nerve II: Pupils equal on both sides, reactive to light. Cranial nerves II I, IV, and : Extraocular muscles are intact without nystagmus. Cranial nerve V: Equal sensation to face. Cranial nerve VII: Decreased nasolabial fold on the left side. Cranial nerve VIII: Decre ased hearing bilaterally. Cranial nerve IX and X: Elevates palate. Cranial nerve XI: Elevates janice ulder 5/5. Cranial nerve XII: With straight tongue. MOTOR: Left side is 1/5, right side is 4+/5. Sensation decreased in the left side for light touch a nd temperature. COORDINATION: Xkpdeo-so-ysil test intact on the right side. Left side with weakness. HEART: Regular rate and rhythm. LUNGS: Equal breath sounds. ABDOMEN: Soft, relaxed, nondistended, no tenderness. ASSESSMENT AND PLAN: 1. The patient is a 78-year-old status post seizure activity. Continue the patient on Keppra 750 mg twice a day. 2. Diazepam 4 mg every 4 hours as needed. 3. Underlying left hemiplegia. Continue the patient under deep venous thrombosis prophylaxis and de cubitus ulcer prophylaxis. The patient is off medication because of the GI bleed. 4. Underlying GI bleed, which the patient is followed by GI team. 5. Status post hypertension. Keep the blood pressure at the level of 140/90 to avoid any more strok es. 6. Dyslipidemia. Continue the patient Lipitor 40 mg once a day. 7. Keep the patient under deep venous thrombosis prophylaxis and decubitus ulcer prophylaxis and fal l precaution. Dictated By: ZECHARIAH JUNIOR/GRACE Conf#: [id number] DID#: [id number]
== END 2018-11-03 19:22 | DRG 378 ==
LOC: E/R 05:41 → ICU 07:52 → 6WM 10-22 21:42 → ICU 10-26 21:31 → 6WM 10-27 18:53
PROVIDERS: ADMIT Internal Medicine; ATTEND Internal Medicine
PROC: 30233N1 Transfusion of Nonautologous Red Blood Cells into Peripheral Vein, Percutaneous Approach (ICD-10-PCS; 2018-10-18)
PROC: 0DJ08ZZ Inspection of Upper Intestinal Tract, Via Natural or Artificial Opening Endoscopic (ICD-10-PCS; principal; 2018-10-18 09:00)
PROC: 0DB68ZX Excision of Stomach, Via Natural or Artificial Opening Endoscopic, Diagnostic (ICD-10-PCS; 2018-10-21)
PROC: 02HV33Z Insertion of Infusion Device into Superior Vena Cava, Percutaneous Approach (ICD-10-PCS; 2018-10-22)
PROC: 009U3ZX Drainage of Spinal Canal, Percutaneous Approach, Diagnostic (ICD-10-PCS; 2018-10-27)
PROC: B01BYZZ Fluoroscopy of Spinal Cord using Other Contrast (ICD-10-PCS; 2018-10-27)
DX: K26.0 Acute duodenal ulcer with hemorrhage (principal); D62 Acute posthemorrhagic anemia; I69.954 Hemiplegia and hemiparesis following unspecified cerebrovascular disease affecting left non-dominant side; I13.0 Hypertensive heart and chronic kidney disease with heart failure and stage 1 through stage 4 chronic kidney disease, or unspecified chronic kidney disease; I42.9 Cardiomyopathy, unspecified; I47.1 Supraventricular tachycardia; N17.9 Acute kidney failure, unspecified; N39.0 Urinary tract infection, site not specified; E87.0 Hyperosmolality and hypernatremia; E87.5 Hyperkalemia; E11.22 Type 2 diabetes mellitus with diabetic chronic kidney disease; E78.5 Hyperlipidemia, unspecified; E66.9 Obesity, unspecified; E11.42 Type 2 diabetes mellitus with diabetic polyneuropathy; G40.909 Epilepsy, unspecified, not intractable, without status epilepticus; H40.9 Unspecified glaucoma; I50.9 Heart failure, unspecified; I25.2 Old myocardial infarction; I25.10 Atherosclerotic heart disease of native coronary artery without angina pectoris; I48.0 Paroxysmal atrial fibrillation; B96.20 Unspecified Escherichia coli [E. coli] as the cause of diseases classified elsewhere; J44.9 Chronic obstructive pulmonary disease, unspecified; K21.9 Gastro-esophageal reflux disease without esophagitis; M48.00 Spinal stenosis, site unspecified; M19.90 Unspecified osteoarthritis, unspecified site; N18.9 Chronic kidney disease, unspecified; T39.395A Adverse effect of other nonsteroidal anti-inflammatory drugs [NSAID], initial encounter; Z90.710 Acquired absence of both cervix and uterus; Z68.29 Body mass index [BMI] 29.0-29.9, adult; Z79.84 Long term (current) use of oral hypoglycemic drugs; Z79.1 Long term (current) use of non-steroidal anti-inflammatories (NSAID); Z79.02 Long term (current) use of antithrombotics/antiplatelets; Z79.82 Long term (current) use of aspirin
CPT/HCPCS: 36415; 36430; 36569; 70450; 70496; 70498; 70553; 71045; 74176; 76937; 80048; 80053; 81001; 82270; 82945; 82962; 83036; 83735; 84157; 84484; 85014; 85018; 85025; 85610; 85730; 86644; 86850; 86900; 86901; 86920; 87070; 87081; 87086; 88305; 89051; 93005; 93306; 95819; 96374; 96375; 96376; 97110; 97116; 97162; 97530; C9113; J0360; J0610; J0696; J1100; J1815; J1953; J2370; J2405; J2765; J3010; J3360; J3475; J7030; J7040; P9016; Q9967